=== PATIENT | male | born 1940 | race Caucasian/White ===

== ENCOUNTER 2016-11-24 07:14 | Day surgery (SDC) | payer MEDICARE ==
[2016-11-20 10:28] VITALS: BMI 37.3
[~2016-11-24 07:14] MED LIST: LACTATED RINGERS 1,000 ML IV SCH; LIDOCAINE 1% 20 ML VIAL (10MG/ML) FOR IV START INTRADERMA PRN
[2016-11-24] MEDS ORDERED: LACTATED RINGERS 1,000 ML IV ONE (07:16)
[2016-11-24 07:28] VITALS: RESP 16; TEMP 98.2
[2016-11-24 07:36] LABS: Glucose,Whole Blood 113 mg/dL (75-99)
[2016-11-24] MEDS ORDERED: PROPOFOL 10 MG/ML 20 ML VIAL IV ONE (08:23)
[2016-11-24] MEDS ORDERED: LIDOCAINE 1% INJ 10MG/ML (20 ML MDV) ONE (08:23)
--- NOTE | 2016-11-24 08:50 | P.PCN ---
Date of Procedure: 11/24/16 Preoperative Diagnosis: Postoperative Diagnosis: Procedure(s) Performed: Procedure: Total colonoscopy. Preoperative diagnosis: Screening for neoplasia. Postoperative diagnosis: Exam within normal limits. Preparation: HalfLytely prep. Sedation: Was provided by anesthesia. Brief clinical history: The patient is a 76-year-old male who is referred for this evaluation for screening for neoplasia age being his risk factor. He has no abdominal complaints, bleeding or anemia. His prior exam was many years ago. Procedure: With the patient on his left lateral decubitus position and after informed consent and adequate sedation, the perianal area was inspected and it did not show any fissures or fistulas. There were no masses felt on digital rectal examination. The Olympus CFQ 160L video colonoscope was then inserted in the rectum in the usual fashion and advanced to the cecum. The preparation was good. The mucosa appeared healthy. No definite diverticular orifices were noted and there was no polyps or tumors. I retroflexed the endoscope in the rectum before the endoscope was withdrawn. The patient tolerated the procedure well. Plan: The patient was reassured. At his age, and in the absence of family history of colon cancer or history of polyps and the absence of polyps today, I did not recommend future surveillance or screening exams. He will follow up with you as planned and I will be happy to see in the future if needed. Implants: Indications for Procedure: Operative Findings: Description of Procedure:
[2016-11-24 09:02] VITALS: BP 120/73; PULSE 55
== END 2016-11-24 09:32 | disposition home or self-care (01) ==
LOC: ORWHC2ENDO 07:14
DX: Z12.11 Encounter for screening for malignant neoplasm of colon (principal); I25.10 Atherosclerotic heart disease of native coronary artery without angina pectoris; J45.909 Unspecified asthma, uncomplicated; I10 Essential (primary) hypertension; E78.5 Hyperlipidemia, unspecified; E11.9 Type 2 diabetes mellitus without complications; B19.20 Unspecified viral hepatitis C without hepatic coma; Z95.1 Presence of aortocoronary bypass graft; Z91.09 Other allergy status, other than to drugs and biological substances; Z79.84 Long term (current) use of oral hypoglycemic drugs; Z79.82 Long term (current) use of aspirin; Z79.899 Other long term (current) drug therapy
CPT/HCPCS: J2001; J2704; G0121

== ENCOUNTER → 2017-05-28 | Outpatient (CLI) | payer MEDICARE ==
[2017-05-28 13:07] LABS: Blood Urea Nitrogen 25 mg/dL (9-20)
== END | disposition home or self-care (01) ==
LOC: LABWHC1 12:11
PROVIDERS: ATTEND Ophthalmology
DX: H53.2 Diplopia (principal)
CPT/HCPCS: 36415; 82565; 84520

== ENCOUNTER → 2017-06-11 | Outpatient (CLI) | payer MEDICARE ==
--- NOTE | 2017-06-11 21:48 | MR ---
EXAMINATION TYPE: MR brain/orbits wo/w con DATE OF EXAM: 06/11/2017 COMPARISON: NONE HISTORY: Double Vision, Gadavist 12ml CONTRAST: Performed utilizing 12 mL intravenous Gadavist gadolinium contrast. TECHNIQUE: Multiplanar, multiecho imaging on a 3.0 Mandy magnet is performed through the brain. Stud y is performed within 24 hours of arrival to the hospital. The craniovertebral junction is normal. The pituitary is normal. Diffusion-weighted imaging is performed. No abnormal hyperintensity is present to suggest an acute i ntracranial infarct or acute ischemic change. There is a focal area of increased intensity in the anterior medial left temporal lobe. Series 501 im age 10. This measures 0.4 cm and can be compatible with microvascular ischemic change. Scattered per iventricular white matter changes are present. These are greater than expected for patient of this ag e. Findings are nonspecific but can be related to microvascular ischemic change. Ventricles and sulci are appropriate for the patient age. Globes are symmetrical. Extraocular muscles appear normal. Optic nerves appear normal. Superior ophth almic veins appear normal. Intraconal and extraconal fat is normal. Moore radiata and occipital lobe s within the [id number] are normal. No abnormal enhancement is evident within the orbits or elsewhere within the visualized portion of th e brain. There is opacification of the right maxillary sinus. Correlate for right maxillary sinusitis. Mild mu cosal thickening is within the right ethmoid air cells. Remaining paranasal sinuses and mastoid air c ells are clear. IMPRESSIONS: 1. Multiple scattered periventricular white matter changes. These are nonspecific but can be related to microvascular ischemic change. 2. Normal bilateral orbits. 3. Opacification of the right maxillary sinus. Correlate for sinusitis.
== END | disposition home or self-care (01) ==
LOC: RADMRIMAIN 19:36
PROVIDERS: ATTEND Ophthalmology
DX: H53.2 Diplopia (principal); H49.20 Sixth [abducent] nerve palsy, unspecified eye
CPT/HCPCS: 70543; 70553; A9581

== ENCOUNTER 2018-02-16 14:27 | Emergency (ER) | payer MEDICARE, OTHER ==
[2018-02-16 14:36] VITALS: RESP 18
--- NOTE | 2018-02-16 15:20 | ED ---
Head Injury HPI - General Chief complaint: Head Injury Stated complaint: possible concussion Time Seen by Provider: 02/16/18 14:38 Source: patient, RN notes reviewed Mode of arrival: ambulatory Limitations: no limitations - History of Present Illness Initial comments: 77-year-old male presents emergency Department chief complaint slip, fall head injury. Patient states that this has not checked and he was going down the ramp and states that he slipped on some ice fell directly backwards and struck his head. Patient states that he felt dazed did not lose conscious. states that he was being repetitive asking same questions and active confused for about 20 minutes which has now resolved. Patient states he did have some difficulty murmur what happened states now he remembers it completely. He has a mild headache with no blurred vision no focal weakness denies nausea, vomiting , diarrhea constipation, chest pain or shortness breath. Patient denies any extremity injury he was able to self up was able to ambulate with no difficulty. - Related Data Home Medications Medication Instructions Recorded Confirmed Aspirin [Adult Low Dose Aspirin EC] 81 mg PO HS 11/20/16 02/16/18 Atorvastatin [Lipitor] 40 mg PO HS 11/20/16 02/16/18 Celecoxib [CeleBREX] 200 mg PO MOWEFRSA 11/20/16 02/16/18 Glucosam/Ralph-Msm1/C/Jay/Bosw 1 tab PO BID 11/20/16 02/16/18 [Glucosamine-Chondroitin Tablet] Losartan [Cozaar] 50 mg PO BID 11/20/16 02/16/18 Metoprolol Tartrate [Lopressor] 50 mg PO BID 11/20/16 02/16/18 Multivitamins, Thera [Multivitamin 1 tab PO DAILY 11/20/16 02/16/18 (formulary)] [place]-3 Acid Ethyl Esters [Lovaza] 2 gm PO BID 11/20/16 02/16/18 Pioglitazone [Actos] 15 mg PO DAILY 11/20/16 02/16/18 amLODIPine [Norvasc] 10 mg PO HS 11/20/16 02/16/18 metFORMIN HCL [Glucophage] 500 mg PO BID 11/20/16 02/16/18 sitaGLIPtin [Januvia] 100 mg PO DAILY 11/20/16 02/16/18 Fenofibrate Nanocrystallized 145 mg PO DAILY 02/16/18 02/16/18 [Fenofibrate] Levothyroxine Sodium [Synthroid] 75 mcg PO DAILY 02/16/18 02/16/18 Penicillin V Potassium [Pen Vee K] 500 mg PO QID 02/16/18 02/16/18 Allergies/Adverse reactions: Allergies Allergy/AdvReac Type Severity Reaction Status Date / Time iodine Allergy Itching Verified 02/16/18 15:21 Review of Systems ROS Statement: Those systems with pertinent positive or pertinent negative responses have been documented in the HPI. ROS Other: All systems not noted in ROS Statement are negative. Past Medical History Past Medical History: Asthma, Coronary Artery Disease (CAD), Chest Pain / Angina , Diabetes Mellitus, Hyperlipidemia, Hypertension, Liver Disease, Osteoarthritis (OA), Pneumonia, Thyroid Disorder Additional Past Medical History / Comment(s): hx hepatitis C, hx bursitis great toes, History of Any Multi-Drug Resistant Organisms: None Reported Past Surgical History: Adenoidectomy, Coronary Bypass/CABG, Heart Catheterization, Orthopedic Surgery, Tonsillectomy Additional Past Surgical History / Comment(s): quad bypass, ptosis catherine eye, botox injection eyes, catherine knee arthroscopy, Past Anesthesia/Blood Transfusion Reactions: Previous Problems w/ Anesthesia, Motion Sickness Additional Past Anesthesia/Blood Transfusion Reaction / Comment(s): diff coming out of anesthesia Past Psychological History: No Psychological Hx Reported Smoking Status: Never smoker Past Alcohol Use History: None Reported - Past Family History Daughter(s) Family Medical History: Cancer General Exam Limitations: no limitations General appearance: alert, in no apparent distress Head exam: Present: atraumatic, normocephalic, normal inspection Eye exam: Present: normal appearance, PERRL, EOMI. Absent: scleral icterus, conjunctival injection, periorbital swelling ENT exam: Present: normal exam, normal oropharynx, mucous membranes moist, TM's normal bilaterally, normal external ear exam Neck exam: Present: normal inspection, full ROM. Absent: tenderness, meningismus, lymphadenopathy Respiratory exam: Present: normal lung sounds bilaterally. Absent: respiratory distress, wheezes, rales, rhonchi, stridor Cardiovascular Exam: Present: regular rate, normal rhythm, normal heart sounds. Absent: systolic murmur, diastolic murmur, rubs, gallop, clicks Extremities exam: Present: normal inspection, full ROM, normal capillary refill. Absent: tenderness, pedal edema, joint swelling, calf tenderness Neurological exam: Present: alert, oriented X3, CN II-XII intact, reflexes normal, other (Finger to nose intact, NIH 0, GCS 15). Absent: motor sensory deficit Skin exam: Present: warm, dry, intact, normal color. Absent: rash Course Vital Signs 02/16/18 02/16/18 02/16/18 14:32 15:52 16:07 Temperature 97.9 F Pulse Rate 60 59 L 62 Respiratory 18 18 18 Rate Blood Pressure 190/84 169/101 168/86 O2 Sat by Pulse 96 97 96 Oximetry 02/16/18 02/16/18 16:15 16:35 Temperature 97.2 F L Pulse Rate 58 L 64 Respiratory 18 18 Rate Blood Pressure 139/73 157/72 O2 Sat by Pulse 97 97 Oximetry - Reevaluation(s) Reevaluation #1: 02/16/18 15:45 I did receive a phone call from radiologist stating the patient does have a subarachnoid Reevaluation #2: 02/16/18 16:15 Transfer accepted at 1610 patient is stable blood pressure improved after hydralazine Medical Decision Making - Medical Decision Making 77-year-old male presented to emergency department for fall, head injury. Patient's found to have subarachnoid subdural hematoma with a small 2.7 cm collection. Patient is stable, GCS of 15. Patient does have mild hypertension was given hydralazine at this time. Patient's blood pressure will be monitored. Case discussed with Terri Degroot patient will be transferred. IV was started labwork drawn. - Lab Data Result diagrams: 02/16/18 16:05 02/16/18 16:05 Lab Results 02/16/18 02/16/18 02/16/18 Range/Units 16:05 16:05 16:05 WBC 7.2 (3.8-10.6) k/uL RBC 5.16 (4.30-5.90) m/uL Hgb 15.0 (13.0-17.5) gm/dL Hct 46.5 (39.0-53.0) % MCV 90.1 (80.0-100.0) fL MCH 29.1 (25.0-35.0) pg MCHC 32.3 (31.0-37.0) g/dL RDW 14.8 (11.5-15.5) % Plt Count 183 (150-450) k/uL Neutrophils % 72 % Lymphocytes % 15 % Monocytes % 8 % Eosinophils % 2 % Basophils % 1 % Neutrophils # 5.2 (1.3-7.7) k/uL Lymphocytes # 1.1 (1.0-4.8) k/uL Monocytes # 0.6 (0-1.0) k/uL Eosinophils # 0.1 (0-0.7) k/uL Basophils # 0.1 (0-0.2) k/uL PT 10.1 (9.0-12.0) sec INR 1.0 (<1.2) APTT 24.4 (22.0-30.0) sec Sodium 141 (137-145) mmol/L Potassium 4.6 (3.5-5.1) mmol/L Chloride 107 (98-107) mmol/L Carbon Dioxide 23 (22-30) mmol/L Anion Gap 11 mmol/L BUN 28 H (9-20) mg/dL Creatinine 1.39 H (0.66-1.25) mg/dL Est GFR (CKD-EPI)AfAm 57 (>60 ml/min/1.73 sqM) Est GFR (CKD-EPI)NonAf 49 (>60 ml/min/1.73 sqM) Glucose 119 H (74-99) mg/dL Calcium 10.0 (8.4-10.2) mg/dL Total Bilirubin 0.5 (0.2-1.3) mg/dL AST 34 (17-59) U/L ALT 36 (21-72) U/L Alkaline Phosphatase 58 (38-126) U/L Total Protein 7.8 (6.3-8.2) g/dL Albumin 4.6 (3.5-5.0) g/dL Disposition Clinical Impression: Subarachnoid hemorrhage, Subdural hematoma, Fall Disposition: OTHER INSTITUTION NOT DEFINED Referrals: Shashank Benites MD [Primary Care Provider] - 1-2 days - Out of Hospital Transfer - Req. Specs Out of Hospital Transfer - Requested Specifics[facility]
--- NOTE | 2018-02-16 15:46 | CT ---
EXAMINATION TYPE: CT brain wo con DATE OF EXAM: 02/16/2018 COMPARISON: MRI brain dated 06/11/2017 HISTORY: Fall today with injury and memory loss CT DLP: 1228.4 mGycm Automated exposure control for dose reduction was used. FINDINGS: Extra-axial acute intracranial hemorrhage is seen with both accumulation of subarachnoid hemorrhage i n the right parafalcine frontal vertex as well as subdural accumulation along the falx cerebri measur ing up to 1.0 cm in greatest thickness. The accumulation of subarachnoid hemorrhage on image 40 measu res up to 2.7 x 1.7 cm. There is no midline shift appreciated. There is frontal predominant cerebral volume loss with prominence of the peripheral sulci and ventric ular system. No intraventricular hemorrhage is seen. No calvarial fracture is identified. Chronic right-sided mucoperiosteal thickening with complete opacification of the right maxillary sinu s is indicative of acute on chronic sinusitis. There is a well-corticated smoothly marginated fractur e deformity of the left lamina papyracea with mild mucosal thickening in the ethmoid sinuses. Remaini ng visualized paranasal sinuses and mastoid air cells are well aerated other than slight hypoplasia o f the left mastoid air cells. Atherosclerosis is noted of the intracranial vasculature. IMPRESSION: 1. ACUTE SUBARACHNOID AND SUBDURAL HEMORRHAGE WITH AND ACCUMULATION OF SUBARACHNOID HEMORRHAGE IN THE RIGHT PARAFALCINE FRONTAL VERTEX MEASURING UP TO 2.7 CM. NO MIDLINE SHIFT IS SEEN. FINDINGS WERE COM MUNICATED WITH THE ORDERING PROVIDER NICKI GUADALUPE ON 02/16/[address] NAM. 2. ACUTE ON CHRONIC RIGHT MAXILLARY SINUS PARANASAL SINUS DISEASE AND MILD MUCOSAL THICKENING WITHIN THE ETHMOID SINUSES. 3. OLD FRACTURE DEFORMITY OF THE LEFT LAMINA PAPYRACEA
--- NOTE | 2018-02-16 15:46 | CT ---
EXAMINATION TYPE: CT cervical spine wo con DATE OF EXAM: 02/16/2018 COMPARISON: HISTORY: Fall today with injury and memory loss. CT DLP: 541 mGycm Automated exposure control for dose reduction was used. TECHNIQUE: CT scan of the cervical spine is obtained without contrast, axial images are obtained, sagittal and c oronal reformatted images are also reviewed. FINDINGS: Inflammatory changes present within the middle ear on the left, correlate for possible cholesteatoma, otitis media, mastoid air cells also show some inflammatory change. Cervical spine is visualized in its entirety from C1 through upper thoracic levels, demonstrates no a cute fracture or dislocation. Prevertebral soft tissue appears within normal limits. The C1-C2 emperatriz culation is within normal limits on the coronal images. There is multilevel facet arthropathy and for aminal encroachment. Multilevel spondylosis is present. Loss of disc height present at the interverte bral levels. There is minimal anterolisthesis grade 1 C2-3, C3-4, C4-5. C6-7 there is some mild centr al canal stenosis due to posterior extension of endplate disc complex, some mild spinal stenosis also present at C5-6. IMPRESSION: There is no acute fracture or dislocation evident in the cervical spine. Multilevel facet arthropathy , degenerative disc disease, foraminal encroachment.
[2018-02-16] MEDS ORDERED: hydrALAZINE HCL 20 MG/ML 1 ML VIAL IVP STA (15:48)
[2018-02-16 16:27] LABS: Basophils # (A) 0.1 k/uL (0-0.2); Basophils % (A) 1 %; Eosinophils # (A) 0.1 k/uL (0-0.7); Eosinophils % (A) 2 %; HCT 46.5 % (39.0-53.0); Lymphocytes # (A) 1.1 k/uL (1.0-4.8); Lymphocytes % (A) 15 %; MCH 29.1 pg (25.0-35.0); MCHC 32.3 g/dL (31.0-37.0); MCV 90.1 fL (80.0-100.0); Monocytes # (A) 0.6 k/uL (0-1.0); Monocytes % (A) 8 %; Neutrophils # (A) 5.2 k/uL (1.3-7.7); Neutrophils % (A) 72 %; Platelet Count 183 k/uL (150-450); RBC 5.16 m/uL (4.30-5.90); RDW 14.8 % (11.5-15.5); WBC 7.2 k/uL (3.8-10.6)
[2018-02-16 16:36] VITALS: BP 157/72; PULSE 64; TEMP 97.2
[2018-02-16 16:36] LABS: Albumin 4.6 g/dL (3.5-5.0); Potassium 4.6 mmol/L (3.5-5.1); Total Bilirubin 0.5 mg/dL (0.2-1.3); Total Protein 7.8 g/dL (6.3-8.2)
[2018-02-16 16:39] LABS: Partial Thromboplastin Time 24.4 sec (22.0-30.0); Prothrombin Time 10.1 sec (9.0-12.0)
== END 2018-02-16 16:39 | disposition other institution (70) ==
LOC: EC 14:27
DX: S06.6X9A Traumatic subarachnoid hemorrhage with loss of consciousness of unspecified duration, initial encounter (principal); S06.5X9A Traumatic subdural hemorrhage with loss of consciousness of unspecified duration, initial encounter; J45.909 Unspecified asthma, uncomplicated; I25.119 Atherosclerotic heart disease of native coronary artery with unspecified angina pectoris; E11.9 Type 2 diabetes mellitus without complications; E78.5 Hyperlipidemia, unspecified; I10 Essential (primary) hypertension; M19.90 Unspecified osteoarthritis, unspecified site; E07.9 Disorder of thyroid, unspecified; Z86.19 Personal history of other infectious and parasitic diseases; Z79.82 Long term (current) use of aspirin; Z79.84 Long term (current) use of oral hypoglycemic drugs; Z79.899 Other long term (current) drug therapy; Z88.8 Allergy status to other drugs, medicaments and biological substances; Z95.818 Presence of other cardiac implants and grafts; Z95.1 Presence of aortocoronary bypass graft; W00.0XXA Fall on same level due to ice and snow, initial encounter
CPT/HCPCS: 36415; 80053; 85025; 85610; 85730; 72125; 70450; 99284; 96374; J0360

== ENCOUNTER → 2018-05-04 | Outpatient (CLI) | payer MEDICARE ==
--- NOTE | 2018-05-05 07:02 | US ---
EXAMINATION TYPE: US kidneys/renal and bladder DATE OF EXAM: 05/04/2018 COMPARISON: NONE CLINICAL HISTORY: Abn kidney function studies R94.4. EXAM MEASUREMENTS: Right Kidney: 13.4 x 6.5 x 5.3 cm Left Kidney: 13.8 x 7.5 x 6.5 cm Post Void Residual Volume: 33.6 mL Right Kidney: small exophytic cyst measures 1.5 x 1.4 x 1.5 cm Left Kidney: moderate hydro Bladder: wnl Bilateral Jets seen: No Normal Post Void Residual: yes No nephrolithiasis is seen. No solid masses are identified. The urinary bladder is anechoic. Bilat eral ureteral jets are seen. IMPRESSION: 1. Moderate left-sided hydronephrosis. 2. Small exophytic cyst right kidney.
== END | disposition home or self-care (01) ==
LOC: RADUSWWP 16:10
PROVIDERS: ATTEND Internal Medicine Geriatric Medicine
DX: N13.30 Unspecified hydronephrosis (principal); N28.1 Cyst of kidney, acquired
CPT/HCPCS: 76770

== ENCOUNTER → 2018-12-13 | Outpatient (CLI) | payer MEDICARE ==
--- NOTE | 2018-12-13 11:08 | US ---
EXAMINATION TYPE: US kidneys/renal and bladder DATE OF EXAM: 12/13/2018 COMPARISON: US 2019 CLINICAL HISTORY: 78-year-old male R94.4 abnormal results of kidney function. History of hydronephros is and right renal cyst FINDINGS: EXAM MEASUREMENTS: Right Kidney: 11.9 x 6.4 x 6.9 cm Left Kidney: 10.8 x 4.7 x 5.3 cm No hydronephrosis seen on either side. Right Kidney: multiple small cysts with largest measuring 1.6cm Left Kidney: multiple small cysts with largest measuring 1.3cm Bladder: wnl Bilateral Jets seen: no IMPRESSION: 1. No hydronephrosis on either side. The previously seen left-sided hydronephrosis has resolved. 2. Bilateral renal cysts measuring up to 1.6 cm.
== END | disposition home or self-care (01) ==
LOC: RADUSWWP 10:00
PROVIDERS: ATTEND Internal Medicine Geriatric Medicine
DX: N28.1 Cyst of kidney, acquired (principal)
CPT/HCPCS: 76770

== ENCOUNTER 2019-01-18 15:14 | Observation (INO) | payer MEDICARE ==
[2019-01-18] MEDS ORDERED: SODIUM CHLORIDE 0.9% 1,000 ML IV STA (16:46)
[2019-01-18] MEDS ORDERED: SODIUM CHLORIDE 0.9% 500 ML 500 ML IV STA (16:46)
[2019-01-18] MEDS ORDERED: ONDANSETRON 4 MG/2 ML VIAL IVP STA (16:46)
[2019-01-18 17:04] LABS: Basophils # (A) 0.2 k/uL (0-0.2); Basophils % (A) 2 %; Eosinophils # (A) 0.1 k/uL (0-0.7); Eosinophils % (A) 1 %; HCT 45.5 % (39.0-53.0); HGB 14.4 gm/dL (13.0-17.5); Lymphocytes # (A) 1.4 k/uL (1.0-4.8); Lymphocytes % (A) 17 %; MCHC 31.6 g/dL (31.0-37.0); MCV 91.9 fL (80.0-100.0); Mean Platelet Volume 7.3; Monocytes # (A) 0.8 k/uL (0-1.0); Monocytes % (A) 10 %; Neutrophils # (A) 5.5 k/uL (1.3-7.7); Neutrophils % (A) 66 %; Platelet Count 322 k/uL (150-450); RBC 4.96 m/uL (4.30-5.90); RDW 13.8 % (11.5-15.5); WBC 8.3 k/uL (3.8-10.6)
--- NOTE | 2019-01-18 17:04 | ED ---
Syncope HPI - General Chief Complaint: Syncope Stated Complaint: low bp Time Seen by Provider: 01/18/19 16:11 Source: patient, RN notes reviewed, old records reviewed Mode of arrival: ambulatory Limitations: no limitations - History of Present Illness MD Complaint: loss of consciousness, collapsed -: days(s) (5) Prodromal Symptoms: palpitations, shortness of breath -: second(s) Injuries Sustained Associated with Event: Head Current Symptoms: none Context: at rest Treatments Prior to Arrival: none - Related Data Home Medications Medication Instructions Recorded Confirmed Aspirin [Adult Low Dose Aspirin EC] 81 mg PO HS 11/20/16 01/18/19 Atorvastatin [Lipitor] 40 mg PO HS 11/20/16 01/18/19 Celecoxib [CeleBREX] 200 mg PO MOWEFRSA 11/20/16 01/18/19 Glucosam/Ralph-Msm1/C/Jay/Bosw 1 tab PO BID 11/20/16 01/18/19 [Glucosamine-Chondroitin Tablet] Metoprolol Tartrate [Lopressor] 50 mg PO BID 11/20/16 01/18/19 Multivitamins, Thera [Multivitamin 1 tab PO DAILY 11/20/16 01/18/19 (formulary)] amLODIPine [Norvasc] 10 mg PO HS 11/20/16 01/18/19 metFORMIN HCL [Glucophage] 500 mg PO BID 11/20/16 01/18/19 sitaGLIPtin [Januvia] 100 mg PO DAILY 11/20/16 01/18/19 Levothyroxine Sodium [Synthroid] 75 mcg PO MOTUWETHFRSA 02/16/18 01/18/19 Allopurinol [Zyloprim] 150 mg PO HS 01/18/19 01/18/19 Fenofibrate Nanocrystallized 145 mg PO DAILY 01/18/19 01/18/19 [Tricor] Pioglitazone [Actos] 30 mg PO DAILY 01/18/19 01/18/19 Allergies Allergy/AdvReac Type Severity Reaction Status Date / Time iodine Allergy Itching Verified 01/18/19 16:12 Review of Systems ROS Statement: Those systems with pertinent positive or pertinent negative responses have been documented in the HPI. ROS Other: All systems not noted in ROS Statement are negative. Past Medical History Past Medical History: Asthma, Coronary Artery Disease (CAD), Chest Pain / Angina, Diabetes Mellitus, Hyperlipidemia, Hypertension, Liver Disease, Osteoarthritis (OA), Pneumonia, Thyroid Disorder Additional Past Medical History / Comment(s): hx hepatitis C, hx bursitis great toes, cranial impact History of Any Multi-Drug Resistant Organisms: None Reported Past Surgical History: Adenoidectomy, Coronary Bypass/CABG, Heart Catheterization, Orthopedic Surgery, Tonsillectomy Additional Past Surgical History / Comment(s): quad bypass, ptosis catherine eye, botox injection eyes, catherine knee arthroscopy, Past Anesthesia/Blood Transfusion Reactions: Previous Problems w/ Anesthesia, Motion Sickness Additional Past Anesthesia/Blood Transfusion Reaction / Comment(s): diff coming out of anesthesia Past Psychological History: No Psychological Hx Reported Smoking Status: Never smoker Past Alcohol Use History: None Reported - Past Family History Daughter(s) Family Medical History: Cancer General Exam Limitations: no limitations General appearance: alert, in no apparent distress Head exam: Present: atraumatic, normocephalic, normal inspection Eye exam: Present: normal appearance, PERRL, EOMI. Absent: scleral icterus, conjunctival injection, periorbital swelling ENT exam: Present: normal exam, mucous membranes moist Neck exam: Present: normal inspection. Absent: tenderness, meningismus, lymphadenopathy Respiratory exam: Present: normal lung sounds bilaterally. Absent: respiratory distress, wheezes, rales, rhonchi, stridor Cardiovascular Exam: Present: regular rate, normal rhythm, normal heart sounds. Absent: systolic murmur, diastolic murmur, rubs, gallop, clicks GI/Abdominal exam: Present: soft, normal bowel sounds. Absent: distended, tenderness, guarding, rebound, rigid Extremities exam: Present: normal inspection, full ROM, normal capillary refill. Absent: tenderness, pedal edema, joint swelling, calf tenderness Back exam: Present: normal inspection Neurological exam: Present: alert, oriented X3, CN II-XII intact Psychiatric exam: Present: normal affect, normal mood Skin exam: Present: warm, dry, intact, normal color. Absent: rash Course Vital Signs 01/18/19 01/18/19 01/18/19 15:21 15:26 16:30 Temperature 97.5 F L 98.5 F Pulse Rate 72 65 64 Respiratory 18 20 18 Rate Blood Pressure 90/58 112/70 112/70 O2 Sat by Pulse 95 96 95 Oximetry 01/18/19 01/18/19 17:00 17:30 Temperature Pulse Rate 62 66 Respiratory 18 18 Rate Blood Pressure 112/73 142/77 O2 Sat by Pulse 96 96 Oximetry - Reevaluation(s) Reevaluation #1: 01/18/19 18:12 Medical records reviewed. Reevaluation #2: 01/18/19 18:12 Patient without recurrent syncope - Consultations Consultation #1: spoke w Dr Fortune who is okay for admission EKG Findings - EKG Comments: EKG Findings:: EKG shows sinus rhythm rate of 63, TN 216, QRS 104, QTc 429 Medical Decision Making - Medical Decision Making 78 male the ER for evaluation patient resents a for evaluation of recurrent sick B2 episodes of syncope last 4 days she by primary care sent ER for evaluation EKG showing no significant acute changes patient's blood pressure running marginally low will be given fluid bolus and put on a monitor for evaluation of arrhythmia. - Lab Data Result diagrams: 01/18/19 16:00 Lab Results 01/18/19 01/18/19 01/18/19 Range/Units 16:00 16:00 16:00 WBC 8.3 (3.8-10.6) k/uL RBC 4.96 (4.30-5.90) m/uL Hgb 14.4 (13.0-17.5) gm/dL Hct 45.5 (39.0-53.0) % MCV 91.9 (80.0-100.0) fL MCH 29.0 (25.0-35.0) pg MCHC 31.6 (31.0-37.0) g/dL RDW 13.8 (11.5-15.5) % Plt Count 322 (150-450) k/uL Neutrophils % 66 % Lymphocytes % 17 % Monocytes % 10 % Eosinophils % 1 % Basophils % 2 % Neutrophils # 5.5 (1.3-7.7) k/uL Lymphocytes # 1.4 (1.0-4.8) k/uL Monocytes # 0.8 (0-1.0) k/uL Eosinophils # 0.1 (0-0.7) k/uL Basophils # 0.2 (0-0.2) k/uL PT 10.6 (9.0-12.0) sec INR 1.0 (<1.2) APTT 26.1 (22.0-30.0) sec Plasma Lactic Acid Zac 1.7 (0.7-2.0) mmol/L Troponin I (0.000-0.034) ng/mL 01/18/19 Range/Units 16:00 WBC (3.8-10.6) k/uL RBC (4.30-5.90) m/uL Hgb (13.0-17.5) gm/dL Hct (39.0-53.0) % MCV (80.0-100.0) fL MCH (25.0-35.0) pg MCHC (31.0-37.0) g/dL RDW (11.5-15.5) % Plt Count (150-450) k/uL Neutrophils % % Lymphocytes % % Monocytes % % Eosinophils % % Basophils % % Neutrophils # (1.3-7.7) k/uL Lymphocytes # (1.0-4.8) k/uL Monocytes # (0-1.0) k/uL Eosinophils # (0-0.7) k/uL Basophils # (0-0.2) k/uL PT (9.0-12.0) sec INR (<1.2) APTT (22.0-30.0) sec Plasma Lactic Acid Zac (0.7-2.0) mmol/L Troponin I <0.012 (0.000-0.034) ng/mL - Radiology Data Radiology results: report reviewed (X-ray abdominal series the chest is negative for acute disease), image reviewed Disposition Clinical Impression: Vasovagal syncope, Syncope, Weakness Disposition: ADMITTED IP TO THIS [facility] Condition: Fair Is patient prescribed a controlled substance at d/c from ED?: No Referrals: Shashank Benites MD [Primary Care Provider] - 1-2 days
[2019-01-18 17:16] LABS: Partial Thromboplastin Time 26.1 sec (22.0-30.0); Prothrombin Time 10.6 sec (9.0-12.0)
--- NOTE | 2019-01-18 17:39 | XR ---
EXAMINATION TYPE: XR abdomen acute w cxr DATE OF EXAM: 01/18/2019 COMPARISON: NONE HISTORY: Syncope. Asthma. TECHNIQUE: Supine, upright, and left side down lateral decubitus views of the abdomen are obtained. FINDINGS: Heart is normal. Lungs are clear of consolidation. There are no hilar masses. There are sternal wires . Bowel gas pattern is normal. There is no sign of intestinal obstruction or pneumoperitoneum. Fecal pa ttern is normal. There are no pathologic calcifications over the kidneys. IMPRESSION: Nonacute abdomen. No active cardiopulmonary disease.
[2019-01-18] MEDS ORDERED: ASPIRIN 81 MG PO STA (18:09)
[2019-01-18] MEDS ORDERED: NITROGLYCERIN SL TABS 0.4 MG TAB SUBLINGUAL PRN (18:09)
[2019-01-18 18:26] LABS: Albumin 4.9 g/dL (3.5-5.0); Calcium 10.4 mg/dL (8.4-10.2); Magnesium 2.1 mg/dL (1.6-2.3); Phosphorus 4.6 mg/dL (2.5-4.5); Potassium 4.6 mmol/L (3.5-5.1); Total Bilirubin 0.7 mg/dL (0.2-1.3)
[2019-01-18] MEDS: SODIUM CHLORIDE 0.9% 1,000 ML IV SCH ×2 (18:59→22:59)
[2019-01-18 20:44] VITALS: BMI 35.9
[2019-01-19 04:29] LABS: Cholesterol 166 mg/dL (<200); HDL Cholesterol 33 mg/dL (40-60); LDL Cholesterol,Calculated 74 mg/dL (0-99); Triglycerides 297 mg/dL (<150)
[2019-01-19 07:33] LABS: Glucose,Whole Blood 130 mg/dL (75-99)
[2019-01-19] MEDS ORDERED: MELOXICAM 7.5 MG TAB PO SCH (09:00)
[2019-01-19] MEDS ORDERED: ASPIRIN 325 MG TAB PO SCH (09:00)
--- NOTE | 2019-01-19 09:51 | P.CRDCN ---
History of Present Illness History of present illness: This is a pleasant 78-year-old male past medical history significant for four-vessel coronary artery bypass in 2002, diabetes mellitus, hypertension, dyslipidemia, hypothyroidism and hepatitis C. he follows in the office with Dr. Tucker. We have been asked to see him in consultation secondary to syncopal episode. He states for the previous 4 days he has been struggling with feeling overall unwell. He states he thought he possibly had influenza. He also has been constipated. On Thursday evening he woke up to attempt to use the restroom was sitting on the toilet straining and became acutely nauseated and diaphoretic. The next thing he recalls he woke up on the floor of the bathroom. He did not have a successful bowel movement at that time. The rest of the weekend he was having intermittent episodes of lower abdominal discomfort, constipation and had 2 further episodes of near syncope. He did not pass out. Other 2 times however he had the same nausea and diaphoresis and became extremely lightheaded. Per the patient he had been checking his blood pressure at home and recalls having a reading of 50/30. He [address] Dr[address] Benites in the office yesterday afternoon and was advised to come to the hospital for further evaluation. Upon arrival the blood pressure was 90/50. He is seen and examined sitting up in bed in no acute distress. He denies ever having had any chest discomfort, shortness of breath or palpitations. He has had no further syncope or near syncope since arriving at the hospital. Telemetry tracings have been unremarkable. EKG reveals sinus mechanism with ST abnormalities noted in the anterior leads, when compared to previous EKG in the office this is chronic. Laboratory data reviewed, cardiac enzymes negative 3, CBC unremarkable, sodium 140, potassium 4.6, creatinine 2.88 with a GFR of 20, magnesium 2.1, LDL 74 and TSH 3.52. His current daily cardiac medications include amlodipine 10 mg daily, atorvastatin 40 mg daily, aspirin 81 mg daily, fenofibrate 145 mg daily and Lopressor 50 mg twice a day. Acute abdominal series was unremarkable with no acute cardiopulmonary process or abdominal abnormality. Most recent echocardiogram obtained in the office revealed normal LV systolic function. At the time of my exam: CONSTITUTIONAL: Denies fever. Denies chills. EYES: Denies blurred vision. Denies vision changes. Denies eye pain. EARS, NOSE, MOUTH & THROAT: Denies headache. Denies sore throat. Denies ear pain. CARDIOVASCULAR: Denies chest pain. Denies shortness of breath. Denies orthopnea. Denies PND. Denies palpitations. RESPIRATORY: Denies cough. GASTROINTESTINAL: Denies abdominal pain. Denies diarrhea. Denies constipation. Denies nausea. Denies vomiting. MUSCULOSKELETAL: Denies myalgias. INTEGUMENTARY: Denies pruitis. Denies rash. NEUROLOGIC: Denies numbness. Denies tingling. Denies weakness. PSYCHIATRIC: Denies anxiety. Denies depression. ENDOCRINE: Denies fatigue. Denies weight change. Denies polydipsia. Denies po lyurina. GENITOURINARY: Denies burning, hematuria or urgency with micturation. HEMATOLOGIC: Denies history of anemia. Denies bleeding. Blood pressure 126/65 heart rate 72 afebrile maintaining oxygen saturation on room air GENERAL: This is a 78-year-old male in no apparent distress at the time of my examination. Obese. HEENT: Head is atraumatic, normocephalic. Pupils are equal, round. Sclerae anicteric. Conjunctivae are clear. Mucous membranes of the mouth are moist. Neck is supple. There is no jugular venous distention. No carotid bruit is heard. LUNGS: Clear to auscultation no wheezes, rales or rhonchi. No chest wall tenderness is noted on palpation or with deep breathing. HEART: Regular rate and rhythm without murmurs, rubs or gallops. S1 and S2 heard. ABDOMEN: Soft, nontender. Bowel sounds are heard. No organomegaly noted. EXTREMITIES: No evidence of peripheral edema and no calf tenderness noted. VASCULAR: Radial and dorsalis pedis pulses palpated, no evidence of clubbing. NEUROLOGIC: Patient is awake, alert and oriented x3. ASSESSMENT Syncope and multiple episodes of near syncope over the previous 4 days with hypertension at home. Acute kidney injury History of coronary artery disease status post bypass grafting Diabetes mellitus Hypertension Dyslipidemia History of hepatitis C Obesity, BMI 35 PLAN An acute coronary event has been ruled out. Obtain 2-D echocardiogram and Doppler study to assess cardiac structure and function. Ongoing telemetry and vital signs monitoring for an acute arrhythmia. Obtain orthostatic vital signs. Consider nephrology consultation for acute kidney injury. Thank you kindly for this consultation. Nurse Practitioner note has been reviewed, I agree with a documented findings and plan of care. Patient was seen and examined. Past Medical History Past Medical History: Asthma, Coronary Artery Disease (CAD), Chest Pain / Angina, Diabetes Mellitus, Hyperlipidemia, Hypertension, Liver Disease, Osteoarthritis (OA), Pneumonia, Thyroid Disorder Additional Past Medical History / Comment(s): hx hepatitis C, hx bursitis great toes, cranial impact History of Any Multi-Drug Resistant Organisms: None Reported Past Surgical History: Adenoidectomy, Coronary Bypass/CABG, Heart Catheterization, Orthopedic Surgery, Tonsillectomy Additional Past Surgical History / Comment(s): quad bypass, ptosis catherine eye, botox injection eyes, catherine knee arthroscopy, Past Anesthesia/Blood Transfusion Reactions: Previous Problems w/ Anesthesia, Motion Sickness Additional Past Anesthesia/Blood Transfusion Reaction / Comment(s): diff coming out of anesthesia Past Psychological History: No Psychological Hx Reported Smoking Status: Never smoker Past Alcohol Use History: None Reported Past Drug Use History: None Reported - Past Family History Daughter(s) Family Medical History: Cancer Medications and Allergies Home Medications Medication Instructions Recorded Confirmed Type Aspirin [Adult Low Dose Aspirin EC] 81 mg PO HS 11/20/16 01/18/19 History Atorvastatin [Lipitor] 40 mg PO HS 11/20/16 01/18/19 History Celecoxib [CeleBREX] 200 mg PO MOWEFRSA 11/20/16 01/18/19 History Glucosam/Ralph-Msm1/C/Jay/Bosw 1 tab PO BID 11/20/16 01/18/19 History [Glucosamine-Chondroitin Tablet] Metoprolol Tartrate [Lopressor] 50 mg PO BID 11/20/16 01/18/19 History Multivitamins, Thera [Multivitamin 1 tab PO DAILY 11/20/16 01/18/19 History (formulary)] amLODIPine [Norvasc] 10 mg PO HS 11/20/16 01/18/19 History metFORMIN HCL [Glucophage] 500 mg PO BID 11/20/16 01/18/19 History sitaGLIPtin [Januvia] 100 mg PO DAILY 11/20/16 01/18/19 History Levothyroxine Sodium [Synthroid] 75 mcg PO MOTUWETHFRSA 02/16/18 01/18/19 History Allopurinol [Zyloprim] 150 mg PO HS 01/18/19 01/18/19 History Fenofibrate Nanocrystallized 145 mg PO DAILY 01/18/19 01/18/19 History [Tricor] Pioglitazone [Actos] 30 mg PO DAILY 01/18/19 01/18/19 History Allergies Allergy/AdvReac Type Severity Reaction Status Date / Time iodine Allergy Itching Verified 01/18/19 16:12 Physical Exam Vitals: Vital Signs Temp Pulse Pulse Resp BP BP Pulse Ox 01/19/19 08:00 98.3 F 72 18 126/65 92 L 01/19/19 04:00 98.8 F 79 18 167/93 93 L 01/18/19 23:33 99.1 F 71 18 157/81 90 L 01/18/19 23:26 71 18 01/18/19 20:30 66 18 01/18/19 20:00 98.2 F 66 18 144/77 95 01/18/19 19:27 98 18 112/74 96 01/18/19 19:00 60 18 134/74 96 01/18/19 18:30 63 18 126/68 98 01/18/19 17:30 66 18 142/77 96 01/18/19 17:00 62 18 112/73 96 01/18/19 16:30 64 18 112/70 95 01/18/19 15:26 98.5 F 65 20 112/70 96 01/18/19 15:21 97.5 F L 72 18 90/58 95 Intake and Output 01/18/19 01/19/19 01/19/19 22:59 06:59 14:59 Output Total 200 Balance -200 Output: Urine 200 Other: # Voids 2 Weight 113.58 kg Results 01/18/19 16:00 01/18/19 16:00 Cardiac Enzymes 01/18/19 01/18/19 01/18/19 Range/Units 16:00 16:00 22:34 AST 41 (17-59) U/L Troponin I <0.012 <0.012 (0.000-0.034) ng/mL 01/19/19 Range/Units 03:51 AST (17-59) U/L Troponin I <0.012 (0.000-0.034) ng/mL Coagulation 01/18/19 Range/Units 16:00 PT 10.6 (9.0-12.0) sec APTT 26.1 (22.0-30.0) sec Lipids 01/19/19 Range/Units 03:51 Triglycerides 297 H (<150) mg/dL Cholesterol 166 (<200) mg/dL HDL Cholesterol 33 L (40-60) mg/dL CBC 01/18/19 Range/Units 16:00 WBC 8.3 (3.8-10.6) k/uL RBC 4.96 (4.30-5.90) m/uL Hgb 14.4 (13.0-17.5) gm/dL Hct 45.5 (39.0-53.0) % Plt Count 322 (150-450) k/uL Comprehensive Metabolic Panel 01/18/19 Range/Units 16:00 Sodium 140 (137-145) mmol/L Potassium 4.6 (3.5-5.1) mmol/L Chloride 100 (98-107) mmol/L Carbon Dioxide 26 (22-30) mmol/L BUN 49 H (9-20) mg/dL Creatinine 2.88 H (0.66-1.25) mg/dL Glucose 107 H (74-99) mg/dL Calcium 10.4 H (8.4-10.2) mg/dL AST 41 (17-59) U/L ALT 30 (21-72) U/L Alkaline Phosphatase 49 (38-126) U/L Total Protein 8.0 (6.3-8.2) g/dL Albumin 4.9 (3.5-5.0) g/dL Current Medications Generic Name Dose Route Start Last Admin Trade Name Freq PRN Reason Stop Dose Admin Allopurinol 150 mg 01/19/19 21:00 Zyloprim PO HS NAEEM Amlodipine Besylate 10 mg 01/19/19 21:00 Norvasc PO HS NAEEM Aspirin 81 mg 01/19/19 21:00 Aspirin PO HS NAEEM Atorvastatin Calcium 40 mg 01/19/19 21:00 Lipitor PO HS NAEEM Fenofibrate 160 mg 01/20/19 09:00 Lofibra PO DAILY NAEEM Sodium Chloride 1,000 mls @ 100 mls/hr 01/18/19 18:15 01/18/19 22:59 Saline 0.9% IV Not Given .Q10H NAEEM Sodium Chloride 1,000 mls @ 75 mls/hr 01/19/19 09:45 Saline 0.9% IV .[id number] NAEEM Levothyroxine Sodium 75 mcg 01/19/19 21:00 Synthroid PO MOTUWETHFRSA NAEEM Linagliptin 5 mg 01/19/19 09:30 Tradjenta PO DAILY NAEEM Meloxicam 7.5 mg 01/19/19 09:00 Mobic PO MOWEFRSA NAEEM Metoprolol Tartrate 50 mg 01/19/19 09:00 Lopressor PO BID NAEEM Nitroglycerin 0.4 mg 01/18/19 18:09 Nitrostat SUBLINGUAL Q5M PRN Chest Pain Pioglitazone HCl 30 mg 01/19/19 09:30 Actos PO DAILY NAEEM Intake and Output 01/18/19 01/19/19 01/19/19 22:59 06:59 14:59 Output Total 200 Balance -200 Output: Urine 200 Other: # Voids 2 Weight 113.58 kg 01/18/19 16:00 01/18/19 16:00
[2019-01-19] MEDS: PIOGLITAZONE 30 MG TAB PO SCH (10:03)
[2019-01-19] MEDS: LINAGLIPTIN 5 MG TABLET PO SCH (10:03)
[2019-01-19] MEDS: METOPROLOL TARTRATE 50 MG TAB PO SCH ×2 (10:03→20:48)
[2019-01-19] MEDS: SODIUM CHLORIDE 0.9% 1,000 ML IV SCH (10:06)
[2019-01-19 10:28] LABS: Calcium 9.5 mg/dL (8.4-10.2)
[2019-01-19 10:31] LABS: Appearance,Urine Clear (Clear); Bilirubin,Urine Negative (Negative); Blood,Urine Negative (Negative); Color,Urine Yellow; Glucose,Urine (UA) Negative (Negative); Ketones,Urine Negative (Negative); Leukocyte Esterase,Urine Negative (Negative); Nitrite,Urine Negative (Negative); Protein,Urine Negative (Negative); Specific Gravity,Urine 1.014 (1.001-1.035); Urobilinogen,Urine <2.0 mg/dL (<2.0)
--- NOTE | 2019-01-19 10:31 | ECHOF ---
Referral Reason:syncope MEASUREMENTS -------- HEIGHT: 177.8 cm WEIGHT: 113.4 kg BP: 126/65 RVIDd: 3.6 cm (< 3.3) IVSd: 1.7 cm (0.6 - 1.1) LVIDd: 4.5 cm (3.9 - 5.3) LVPWd: 1.5 cm (0.6 - 1.1) IVSs: 1.8 cm LVIDs: 3.2 cm LVPWs: 2.0 cm LA Diam: 3.7 cm (2.7 - 3.8) LAESV Index (A-L): 18.69 ml/m Ao Diam: 3.5 cm (2.0 - 3.7) AV Cusp: 2.2 cm (1.5 - 2.6) MV EXCURSION: 13.883 mm (> 18.000) MV EF SLOPE: 27 mm/s (70 - 150) EPSS: 1.1 cm MV E Peewee: 0.63 m/s MV DecT: 347 ms MV A Peewee: 0.87 m/s MV E/A Ratio: 0.72 RAP: 5.00 mmHg RVSP: 35.44 mmHg FINDINGS -------- Sinus rhythm. This was a technically difficult study with suboptimal apical views. The left ventricular size is normal. There is moderate concentric left ventricular hypertrophy. L eft ventricular systolic function is hyperdynamic with an estimated EF of >70%. The right ventricle is mildly enlarged. Normal LA size by volume 22+/-6 ml/m2. The right atrium is normal in size. 5 ml of Lumason was utilized for enhancement of images. There is mild aortic valve sclerosis. Mild mitral regurgitation is present. Mild tricuspid regurgitation present. There is mild pulmonary hypertension. The right ventricular systolic pressure, as measured by Doppler, is 35.44mmHg. Trace/mild (physiologic) pulmonic regurgitation. The aortic root size is normal. IVC Not well visulized. There is no pericardial effusion. CONCLUSIONS -------- 1. Sinus rhythm. 2. This was a technically difficult study with suboptimal apical views. 3. The left ventricular size is normal. 4. There is moderate concentric left ventricular hypertrophy. 5. Left ventricular systolic function is hyperdynamic with an estimated EF of >70%. 6. The right ventricle is mildly enlarged. 7. Normal LA size by volume 22+/-6 ml/m2. 8. The right atrium is normal in size. 9. 5 ml of Lumason was utilized for enhancement of images. 10. There is mild aortic valve sclerosis. 11. Mild mitral regurgitation is present. 12. Mild tricuspid regurgitation present. 13. There is mild pulmonary hypertension. 14. The right ventricular systolic pressure, as measured by Doppler, is 35.44mmHg. 15. Trace/mild (physiologic) pulmonic regurgitation. 16. The aortic root size is normal. 17. IVC Not well visulized. 18. There is no pericardial effusion. [employer] MAINTAINER: Suha Patrick RDCS
[2019-01-19 12:09] LABS: Glucose,Whole Blood 192 mg/dL (75-99)
--- NOTE | 2019-01-19 12:52 | P.NPCON ---
History of Present Illness - Reason for Consult acute renal failure - History of Present Illness Reason for consultation: Acute kidney injury History of present illness: Patient is a 78-year-old male seen in renal consultation for acute kidney injury. Patient's creatinine in January 2018 was 1.39 and 1.0 in May 2017. This admission was 2.88 and is 2.72 today. Patient presented to the hospital due to syncope. Patient states Thursday evening he was straining to have a bowel movement and subsequently fell and lost consciousness. He is unsure as to how long he was down for. He denies chest pain or shortness of breath. He has been voiding. No hematuria or dysuria. Patient was noted to be mildly orthostatic with standing blood pressure 117/73. Oral intake is fair. He does have history of diabetes mellitus. Blood sugar is controlled. Urine is benign. Denies regular use of nonsteroidals. Denies family history of renal disease. Currently receiving IV fluids. Vital signs are stable. General: The patient appeared well nourished and normally developed. HEENT: Head exam is unremarkable. Neck is without jugular venous distension. LUNGS: Lungs are clear to auscultation and percussion. Breath sounds decreased. HEART: Rate and Rhythm are regular. First and second heart sounds normal. No murmurs, rubs or gallops. ABDOMEN: Abdominal exam reveals normal bowel sounds. Non-tender and non- distended. No evidence of peritonitis. EXTREMITITES: No clubbing, cyanosis, or edema. Past Medical History Past Medical History: Asthma, Coronary Artery Disease (CAD), Chest Pain / Angina, Diabetes Mellitus, Hyperlipidemia, Hypertension, Liver Disease, Os teoarthritis (OA), Pneumonia, Thyroid Disorder Additional Past Medical History / Comment(s): hx hepatitis C, hx bursitis great toes, cranial impact History of Any Multi-Drug Resistant Organisms: None Reported Past Surgical History: Adenoidectomy, Coronary Bypass/CABG, Heart Catheterization, Orthopedic Surgery, Tonsillectomy Additional Past Surgical History / Comment(s): quad bypass, ptosis catherine eye, botox injection eyes, catherine knee arthroscopy, Past Anesthesia/Blood Transfusion Reactions: Previous Problems w/ Anesthesia, Motion Sickness Additional Past Anesthesia/Blood Transfusion Reaction / Comment(s): diff coming out of anesthesia Past Psychological History: No Psychological Hx Reported Smoking Status: Never smoker Past Alcohol Use History: None Reported Past Drug Use History: None Reported - Past Family History Daughter(s) Family Medical History: Cancer Medications and Allergies Home Medications Medication Instructions Recorded Confirmed Type Aspirin [Adult Low Dose Aspirin EC] 81 mg PO HS 11/20/16 01/18/19 History Atorvastatin [Lipitor] 40 mg PO HS 11/20/16 01/18/19 History Celecoxib [CeleBREX] 200 mg PO MOWEFRSA 11/20/16 01/18/19 History Glucosam/Ralph-Msm1/C/Jay/Bosw 1 tab PO BID 11/20/16 01/18/19 History [Glucosamine-Chondroitin Tablet] Metoprolol Tartrate [Lopressor] 50 mg PO BID 11/20/16 01/18/19 History Multivitamins, Thera [Multivitamin 1 tab PO DAILY 11/20/16 01/18/19 History (formulary)] amLODIPine [Norvasc] 10 mg PO HS 11/20/16 01/18/19 History metFORMIN HCL [Glucophage] 500 mg PO BID 11/20/16 01/18/19 History sitaGLIPtin [Januvia] 100 mg PO DAILY 11/20/16 01/18/19 History Levothyroxine Sodium [Synthroid] 75 mcg PO MOTUWETHFRSA 02/16/18 01/18/19 History Allopurinol [Zyloprim] 150 mg PO HS 01/18/19 01/18/19 History Fenofibrate Nanocrystallized 145 mg PO DAILY 01/18/19 01/18/19 History [Tricor] Pioglitazone [Actos] 30 mg PO DAILY 01/18/19 01/18/19 History Allergies Allergy/AdvReac Type Severity Reaction Status Date / Time iodine Allergy Itching Verified 01/18/19 16:12 Physical Exam Vitals: Vital Signs Temp Pulse Pulse Resp BP BP BP 01/19/19 12:00 97.8 F 80 18 01/19/19 10:54 153/76 117/73 01/19/19 08:30 18 01/19/19 08:00 98.3 F 72 18 01/19/19 04:00 98.8 F 79 18 01/18/19 23:33 99.1 F 71 18 01/18/19 23:26 71 18 01/18/19 20:30 66 18 01/18/19 20:00 98.2 F 66 18 01/18/19 19:27 98 18 112/74 01/18/19 19:00 60 18 134/74 01/18/19 18:30 63 18 126/68 01/18/19 17:30 66 18 142/77 01/18/19 17:00 62 18 112/73 01/18/19 16:30 64 18 112/70 01/18/19 15:26 98.5 F 65 20 112/70 01/18/19 15:21 97.5 F L 72 18 90/58 BP Pulse Ox 01/19/19 12:00 137/76 94 L 01/19/19 10:54 137/76 01/19/19 08:30 01/19/19 08:00 126/65 92 L 01/19/19 04:00 167/93 93 L 01/18/19 23:33 157/81 90 L 01/18/19 23:26 01/18/19 20:30 01/18/19 20:00 144/77 95 01/18/19 19:27 96 01/18/19 19:00 96 01/18/19 18:30 98 01/18/19 17:30 96 01/18/19 17:00 96 01/18/19 16:30 95 01/18/19 15:26 96 01/18/19 15:21 95 Intake and Output 01/18/19 01/19/19 01/19/19 22:59 06:59 14:59 Intake Total 300 Output Total 200 Balance -200 300 Intake: Oral 300 Output: Urine 200 Other: # Voids 2 Weight 113.58 kg Results - Lab Results Most recent lab results Calcium 9.5 mg/dL (8.4-10.2) 01/19/19 03:51 Phosphorus 4.6 mg/dL (2.5-4.5) H 01/18/19 16:00 Magnesium 2.1 mg/dL (1.6-2.3) 01/18/19 16:00 01/18/19 16:00 01/19/19 03:51 Assessment and Plan Plan: Assessment: 1. Acute kidney injury secondary to ATN secondary to hypotension. Rule out urinary retention. Creatinine was 2.88 on admission and is 2.17 today. UA is benign. 2. Syncopal episode. Echocardiogram revealed preserved ejection fraction. No significant hypotension while in the hospital. Possibly defecation syncope. 3. Diabetes mellitus. 4. Benign hypertension. Plan: Maintain normal saline at 75 mL an hour. Check bladder scan. Check renal ultrasound. Hold antihypertensives for systolic blood pressure less than 120. Avoid nephrotoxins. Avoid metformin as GFR is less than 30. Thank you for the consultation. I will continue to follow the patient with you during his hospital stay.
--- NOTE | 2019-01-19 13:13 | US ---
EXAMINATION TYPE: US kidneys/renal and bladder DATE OF EXAM: 01/19/2019 COMPARISON: NONE CLINICAL HISTORY: BALBINA. BALBINA, history of renal cysts EXAM MEASUREMENTS: Right Kidney: 12.9 x 5.6 x 5.5 cm Left Kidney: 11.0 x 4.7 x 3.6 cm Right Kidney: cystic areas noted, largest = 1.3 x 1.2 x 1.4cm, similar in size Left Kidney: cystic areas noted, largest = 0.9 x 0.9 x 1.1cm, similar to prior Bladder: appears wnl, volume = 244ml Bilateral Jets seen: no There is no evidence for hydronephrosis at this point in time. No nephrolithiasis is seen. Cortical medullary differentiation is maintained bilaterally. The urinary bladder is anechoic. Bilateral uret eral jets are not seen. IMPRESSION: Essentially stable exam.
[2019-01-19] MEDS: INSULIN ASPART (NovoLOG) 100 UNIT/ML VIAL SQ SCH ×3 (13:50→21:04)
--- NOTE | 2019-01-19 15:54 | P.HPIM ---
History of Present Illness H&P Date: 01/19/19 Chief Complaint: Syncope This is a 78-year-old male patient of Dr. Benites with past medical history of coronary artery disease status post CABG, diabetes mellitus type 2, hypertension, hyperlipidemia, history of hepatitis C status post treatment, osteoarthritis, gout. Patient denies any history of kidney disease. Patient has multiple vague symptoms including difficulty sleeping, itching, and leg cramps that make him get out of bed. He states on Thursday at 4 AM he was up in the bathroom trying to have a bowel movement and became sweaty and nauseated end up passing out on the floor. He states he woke up on the floor he had some minor bruising to the left elbow and knee but no other injury. He states he has been trying to lose weight recently dropped 15 pounds. He states he has been drinking lots of water. He states he did take 1-2 ibuprofen over the weekend but does not normally take NSAIDs. He states he has been using [employer] instant breakfast protein drinks to help lose weight. He states he has chronic shortness of breath when he goes upstairs. He states his lower extremity edema is lower than it normally is. He does complain of constipation and took a Dulcolax without improvement. He states over the weekend he monitored his blood pressure and it was high and low. He contacted Dr. Benites office on Thursday and make an appointment for Thursday. In the office his blood pressure was 50/30. The patient was instructed to come into [facility] for emergency and initial blood pressure was 90/58. Initially his amlodipine was held and he was started on metformin. His blood pressure this morning 167/93. He was orthostatic positive. CBC is unremarkable. Lactic acid 1.7. Troponin negative. Electrolytes within normal limits, BUN 49 creatinine 2.88. Calcium 10.4 and phosphorus 4.6. Troponin negative on 3 draws triglycerides 297, cholesterol 166, LDL 74, HDL 33, TSH 3.520. Patient was placed on the observa tion unit and consult requested with cardiology and nephrology. Patient has been started on IV fluids, repeat lab work ordered and nephrotoxic medications held. Review of Systems Constitutional: Denies chills, Denies fatigue, Denies fever, Denies lethargy, De nies malaise, Denies poor appetite, Denies weakness Eyes: denies blurred vision, denies pain Ears, nose, mouth and throat: Denies dysphagia, Denies headache, Denies nasal congestion, Denies nasal discharge, Denies sore throat, Denies vertigo Cardiovascular: Reports dyspnea on exertion, Reports lightheadedness, Reports syncope, Denies chest pain, Denies shortness of breath Respiratory: Denies cough, Denies cough with sputum, Denies dyspnea, Denies excessive sputum, Denies hemoptysis, Denies home oxygen, Denies wheezing Gastrointestinal: Reports constipation, Denies abdominal pain, Denies diarrhea, Denies loss of appetite, Denies nausea, Denies vomiting Genitourinary: Denies dysuria, Denies flank pain, Denies hematuria, Denies urinary frequency, Denies urinary hesitancy, Denies urinary retention Musculoskeletal: Denies frequent falls, Denies gait dysfunction, Denies muscle weakness, Denies myalgias Integumentary: Denies pruritus, Denies rash, Denies wounds Neurological: Denies change in mentation, Denies confusion, Denies gait dysfunction, Denies numbness, Denies weakness Psychiatric: Denies anxiety, Denies depression Endocrine: Denies fatigue, Denies weight change Past Medical History Past Medical History: Asthma, Coronary Artery Disease (CAD), Chest Pain / Angina, Diabetes Mellitus, Hyperlipidemia, Hypertension, Liver Disease, Osteoarthritis (OA), Pneumonia, Thyroid Disorder Additional Past Medical History / Comment(s): hx hepatitis C, hx bursitis great toes, cranial impact History of Any Multi-Drug Resistant Organisms: None Reported Past Surgical History: Adenoidectomy, Coronary Bypass/CABG, Heart Catheterization, Orthopedic Surgery, Tonsillectomy Additional Past Surgical History / Comment(s): quad bypass, ptosis catherine eye, botox injection eyes, catherine knee arthroscopy, Past Anesthesia/Blood Transfusion Reactions: Previous Problems w/ Anesthesia, Motion Sickness Additional Past Anesthesia/Blood Transfusion Reaction / Comment(s): diff coming out of anesthesia Past Psychological History: No Psychological Hx Reported Smoking Status: Never smoker Past Alcohol Use History: None Reported Additional Past Alcohol Use History / Comment(s): The patient is a lifelong nonsmoker. He denies any marijuana, street drug or alcohol use. He lives at home with his . Past Drug Use History: None Reported - Past Family History Daughter(s) Family Medical History: Cancer Additional Family Medical History / Comment(s): Patient has one daughter with no major medical problems. Father Additional Family Medical History / Comment(s): Father at age 74 from nonalcoholic cirrhosis of the liver. Mother Additional Family Medical History / Comment(s): Mother at age 74 from a nonmalignant growth in her lung. Brother(s) Additional Family Medical History / Comment(s): Patient does not have any brothers or sisters. Son(s) Additional Family Medical History / Comment(s): patient has one son with obesity and hypertension. Medications and Allergies Home Medications Medication Instructions Recorded Confirmed Type Aspirin [Adult Low Dose Aspirin EC] 81 mg PO HS 11/20/16 01/18/19 History Atorvastatin [Lipitor] 40 mg PO HS 11/20/16 01/18/19 History Celecoxib [CeleBREX] 200 mg PO MOWEFRSA 11/20/16 01/18/19 History Glucosam/Ralph-Msm1/C/Jay/Bosw 1 tab PO BID 11/20/16 01/18/19 History [Glucosamine-Chondroitin Tablet] Metoprolol Tartrate [Lopressor] 50 mg PO BID 11/20/16 01/18/19 History Multivitamins, Thera [Multivitamin 1 tab PO DAILY 11/20/16 01/18/19 History (formulary)] amLODIPine [Norvasc] 10 mg PO HS 11/20/16 01/18/19 History metFORMIN HCL [Glucophage] 500 mg PO BID 11/20/16 01/18/19 History sitaGLIPtin [Januvia] 100 mg PO DAILY 11/20/16 01/18/19 History Levothyroxine Sodium [Synthroid] 75 mcg PO MOTUWETHFRSA 02/16/18 01/18/19 History Allopurinol [Zyloprim] 150 mg PO HS 01/18/19 01/18/19 History Fenofibrate Nanocrystallized 145 mg PO DAILY 01/18/19 01/18/19 History [Tricor] Pioglitazone [Actos] 30 mg PO DAILY 01/18/19 01/18/19 History Allergies Allergy/AdvReac Type Severity Reaction Status Date / Time iodine Allergy Itching Verified 01/18/19 16:12 Physical Exam Vitals: Vital Signs Temp Pulse Pulse Resp BP BP Pulse Ox 01/19/19 08:00 98.3 F 72 18 126/65 92 L 01/19/19 04:00 98.8 F 79 18 167/93 93 L 01/18/19 23:33 99.1 F 71 18 157/81 90 L 01/18/19 23:26 71 18 01/18/19 20:30 66 18 01/18/19 20:00 98.2 F 66 18 144/77 95 01/18/19 19:27 98 18 112/74 96 01/18/19 19:00 60 18 134/74 96 01/18/19 18:30 63 18 126/68 98 01/18/19 17:30 66 18 142/77 96 01/18/19 17:00 62 18 112/73 96 01/18/19 16:30 64 18 112/70 95 01/18/19 15:26 98.5 F 65 20 112/70 96 01/18/19 15:21 97.5 F L 72 18 90/58 95 Intake and Output 01/18/19 01/19/19 01/19/19 22:59 06:59 14:59 Output Total 200 Balance -200 Output: Urine 200 Other: # Voids 2 Weight 113.58 kg Gen: This is a 78-year-old male. He is resting in bed and appears to be comfortable and in no acute distress. HEENT: Head is atraumatic, normocephalic. Pupils equal, round. Sclerae is anicteric. NECK: Supple. No JVD. No lymphadenopathy. No thyromegaly. LUNGS: Clear to auscultation. No wheezes or rhonchi. No intercostal retractions. HEART: Regular rate and rhythm. No murmur. ABDOMEN: Soft. Bowel sounds are present. No masses. No tenderness. EXTREMITIES: Trace bilateral pedal edema. No calf tenderness. Dorsalis pedis +2 bilaterally. NEUROLOGICAL: Patient is awake, alert and oriented x3. Cranial nerves 2 through 12 are grossly intact. Results CBC & Chem 7: 01/18/19 16:00 01/19/19 03:51 Labs: Abnormal Lab Results - Last 24 Hours (Table) 01/18/19 01/19/19 01/19/19 Range/Units 16:00 03:51 07:31 BUN 49 H (9-20) mg/dL Creatinine 2.88 H (0.66-1.25) mg/dL Glucose 107 H (74-99) mg/dL POC Glucose (mg/dL) 130 H (75-99) mg/dL Calcium 10.4 H (8.4-10.2) mg/dL Phosphorus 4.6 H (2.5-4.5) mg/dL Triglycerides 297 H (<150) mg/dL HDL Cholesterol 33 L (40-60) mg/dL Thrombosis Risk Factor Assmnt - DVT/VTE Prophylaxis DVT/VTE Prophylaxis: Pharmacologic Prophylaxis ordered - Choose All That Apply Any of the Below Risk Factors Present?: Yes Each Factor Represents 1 point: Acute MO, Obesity (BMI >25) Other Risk Factors: Yes Each Risk Factor Represents 3 Points: Age 75 years or older Other congenital or acquired thrombophilia - If yes, enter type in comment: No Thrombosis Risk Factor Assessment Total Risk Factor Score: 5 Thrombosis Risk Factor Assessment Level: High Risk Assessment and Plan Plan: 1. Syncopal episode most likely secondary to orthostatic hypotension. Patient started on IV fluids 75 mL per hour. Cardiology consult appreciated. Echocardiogram ordered. Hold amlodipine. Continue Lopressor 50 mg twice daily. Repeat basic metabolic panel and magnesium in the morning. 2. Acute kidney injury with chronic kidney disease stage III. Consult with nephrology. Continue IV fluids. Hold Celebrex, TriCor, metformin. No nonsteroidals. 3. History of coronary artery disease status post CABG, stable. Continue aspirin 81 mg daily, Lipitor 40 mg at bedtime, Lopressor. 4. Diabetes mellitus type 2. Hold metformin. Continue gentle 5 mg daily, Actos 30 mg daily, NovoLog scale before meals and at bedtime. 5. Hypertension. Continue Lopressor. Hold amlodipine. 6. Hyperlipidemia. Continue statin 7. History of hepatitis C, treated. 8. Obesity with BMI of 35. 9. Generalized osteoarthritis. Discontinue Celebrex 10. Hypothyroidism. Continue levothyroxine 75 g Thursday through Thursday. Patient places an observation status. Discharge plan: Return home in the next 24-48 hours. Impression and plan of care have been directed as dictated by the signing dane katz. Mihaela Roberts nurse practitioner acting as scribe for signing physician.
[2019-01-19 16:43] LABS: Glucose,Whole Blood 124 mg/dL (75-99)
[2019-01-19 20:57] LABS: Glucose,Whole Blood 90 mg/dL (75-99)
[2019-01-19] MEDS ORDERED: ATORVASTATIN 40 MG TAB PO SCH (21:00)
[2019-01-19] MEDS ORDERED: LEVOTHYROXINE 75 MCG TAB PO SCH (21:00)
[2019-01-19] MEDS ORDERED: amLODIPine 10 MG TAB PO SCH (21:00)
[2019-01-19] MEDS ORDERED: ASPIRIN 81 MG PO SCH (21:00)
[2019-01-19] MEDS ORDERED: ALLOPURINOL 300 MG TAB PO SCH (21:00)
[2019-01-19] MEDS ORDERED: metFORMIN 500 MG TAB PO SCH (21:00)
[2019-01-20] MEDS: SODIUM CHLORIDE 0.9% 1,000 ML IV SCH (01:48)
[2019-01-20 06:06] LABS: Calcium 9.3 mg/dL (8.4-10.2); Magnesium 1.9 mg/dL (1.6-2.3); Potassium 4.1 mmol/L (3.5-5.1)
[2019-01-20 06:54] LABS: Glucose,Whole Blood 155 mg/dL (75-99)
[2019-01-20] MEDS ORDERED: metFORMIN 500 MG TAB PO SCH (08:00)
[2019-01-20] MEDS: INSULIN ASPART (NovoLOG) 100 UNIT/ML VIAL SQ SCH ×2 (08:12→12:00)
[2019-01-20] MEDS: METOPROLOL TARTRATE 50 MG TAB PO SCH (08:17)
[2019-01-20] MEDS: PIOGLITAZONE 30 MG TAB PO SCH (08:17)
[2019-01-20] MEDS: LINAGLIPTIN 5 MG TABLET PO SCH (08:17)
[2019-01-20] MEDS ORDERED: amLODIPine 5 MG TAB PO SCH (09:00)
[2019-01-20] MEDS ORDERED: FENOFIBRATE 160 MG TAB PO SCH (09:00)
--- NOTE | 2019-01-20 09:43 | P.PN ---
Subjective Patient is seen in follow-up for acute kidney injury. Renal function is improving with IV fluids. Creatinine 2.0 today. No dizziness or syncopal episodes while in the hospital. Oral intake is good. Vital signs are stable. General: The patient appeared well nourished and normally developed. HEENT: Head exam is unremarkable. Neck is without jugular venous distension. LUNGS: Lungs are clear to auscultation and percussion. Breath sounds decreased. HEART: Rate and Rhythm are regular. First and second heart sounds normal. No murmurs, rubs or gallops. ABDOMEN: Abdominal exam reveals normal bowel sounds. Non-tender and non- distended. No evidence of peritonitis. EXTREMITITES: No clubbing, cyanosis, or edema. Objective - Vital Signs Vital signs: Vital Signs Temp 98.4 F 01/20/19 07:47 Pulse 58 L 01/20/19 07:47 Resp 18 01/20/19 07:47 BP 156/78 01/20/19 07:47 Pulse Ox 95 01/20/19 07:47 Intake & Output 01/19/19 01/20/19 01/20/19 18:59 06:59 18:59 Intake Total 600 400 Output Total 389 2250 Balance 211 -1850 Intake: Oral 600 400 Output: Urine 300 2250 Post Void Residual 89 Other: Voiding Method Toilet Toilet Toilet Urinal Urinal # Voids 1 1 - Labs CBC & Chem 7: 01/18/19 16:00 01/20/19 05:34 Labs: Abnormal Lab Results - Last 24 Hours (Table) 01/19/19 01/19/19 01/19/19 Range/Units 03:51 12:08 16:42 BUN 45 H (9-20) mg/dL Creatinine 2.72 H (0.66-1.25) mg/dL Glucose 120 H (74-99) mg/dL POC Glucose (mg/dL) 192 H 124 H (75-99) mg/dL 01/20/19 01/20/19 Range/Units 05:34 06:53 BUN 33 H (9-20) mg/dL Creatinine 2.08 H (0.66-1.25) mg/dL Glucose 123 H (74-99) mg/dL POC Glucose (mg/dL) 155 H (75-99) mg/dL Assessment and Plan Plan: Assessment: 1. Acute kidney injury secondary to ATN secondary to hypotension. No evidence of urinary retention. Creatinine was 2.88 on admission and is 2.08 today. UA is benign. No hydronephrosis noted on kidney ultrasound. 2. Syncopal episode. Echocardiogram revealed preserved ejection fraction. No significant hypotension while in the hospital. Possibly defecation syncope. 3. Diabetes mellitus. 4. Benign hypertension. Controlled. Plan: Maintain normal saline at 75 mL an hour. Hold antihypertensives for systolic blood pressure less than 120. Avoid nephrotoxins. Avoid metformin if GFR is less than 30.
--- NOTE | 2019-01-20 11:08 | P.PN ---
Subjective This is a pleasant 78-year-old male past medical history significant for four-vessel coronary artery bypass in 2002, diabetes mellitus, hypertension, dyslipidemia, hypothyroidism and hepatitis C. he follows in the office with Dr. Tucker. He is seen and examined up walking around the room. He states he just had a large bowel movement. He has no further symptoms of dizziness, syncope or near syncope. Blood pressure this morning 156/78 heart rate 58. Laboratory data reviewed, sodium 139, potassium 4.1, creatinine 2.08 with a GFR of 30. Currently maintained on Lopressor 50 mg twice a day, atorvastatin 40 mg daily and aspirin 81 mg daily. Echocardiogram reviewed, EF hyperdynamic greater than 70%, mild MR and mild TR. Telemetry tracings unremarkable, no arrhythmia noted. GENERAL: This is a 78-year-old male in no apparent distress at the time of my examination. Obese. HEENT: Head is atraumatic, normocephalic. Pupils are equal, round. Sclerae anicteric. Conjunctivae are clear. Mucous membranes of the mouth are moist. Neck is supple. There is no jugular venous distention. No carotid bruit is heard. LUNGS: Clear to auscultation no wheezes, rales or rhonchi. No chest wall tenderness is noted on palpation or with deep breathing. HEART: Regular rate and rhythm without murmurs, rubs or gallops. S1 and S2 heard. EXTREMITIES: No evidence of peripheral edema and no calf tenderness noted. ASSESSMENT Syncope and multiple episodes of near syncope over the previous 4 days with hypertension at home. Acute kidney injury History of coronary artery disease status post bypass grafting Diabetes mellitus Hypertension Dyslipidemia History of hepatitis C Obesity, BMI 35 PLAN Resume amlodipine at lower dose of 5 mg daily today. No evidence of arrhythmia. Ongoing medical management. Nurse Practitioner note has been reviewed, I agree with a documented findings and plan of care. Patient was seen and examined. Objective - Vital Signs Vital signs: Vital Signs Temp 98.4 F 01/20/19 07:47 Pulse 58 L 01/20/19 07:47 Resp 18 01/20/19 07:47 BP 156/78 01/20/19 07:47 Pulse Ox 95 01/20/19 07:47 Intake & Output 01/19/19 01/20/19 01/20/19 18:59 06:59 18:59 Intake Total 600 400 Output Total 389 2250 Balance 211 -1850 Intake: Oral 600 400 Output: Urine 300 2250 Post Void Residual 89 Other: Voiding Method Toilet Toilet Toilet Urinal Urinal # Voids 1 1 - Labs CBC & Chem 7: 01/18/19 16:00 01/20/19 05:34 Labs: Abnormal Lab Results - Last 24 Hours (Table) 01/19/19 01/19/19 01/20/19 Range/Units 12:08 16:42 05:34 BUN 33 H (9-20) mg/dL Creatinine 2.08 H (0.66-1.25) mg/dL Glucose 123 H (74-99) mg/dL POC Glucose (mg/dL) 192 H 124 H (75-99) mg/dL 01/20/19 Range/Units 06:53 BUN (9-20) mg/dL Creatinine (0.66-1.25) mg/dL Glucose (74-99) mg/dL POC Glucose (mg/dL) 155 H (75-99) mg/dL
[2019-01-20 11:51] LABS: Glucose,Whole Blood 90 mg/dL (75-99)
[2019-01-20 11:55] VITALS: BP 135/76; PULSE 56; RESP 17; TEMP 97.6
--- NOTE | 2019-01-20 15:55 | P.DS ---
Providers Date of admission: 01/18/19 18:09 Expected date of discharge: 01/20/19 Attending physician: Efrem Fortune Consults: 01/18/19 18:09 Consult Physician Urgent Consulting Provider: Abigail Tucker Consult Reason/Comments: syncope Do you want consulting provider notified?: Yes 01/19/19 11:47 Consult Physician Routine Consulting Provider: Mich Mcadams Consult Reason/Comments: [place] Do you want consulting provider notified?: Yes [facility] Course: This is a 78-year-old male patient of Dr. Benites with past medical history of coronary artery disease status post CABG, diabetes mellitus type 2, hypertension, hyperlipidemia, history of hepatitis C status post treatment, osteoarthritis, gout. Patient denies any history of kidney disease. Patient has multiple vague symptoms including difficulty sleeping, itching, and leg cramps that make him get out of bed. He states on Thursday at 4 AM he was up in the bathroom trying to have a bowel movement and became sweaty and nauseated end up passing out on the floor. He states he woke up on the floor he had some minor bruising to the left elbow and knee but no other injury. He states he has been trying to lose weight recently dropped 15 pounds. He states he has been drinking lots of water. He states he did take 1-2 ibuprofen over the weekend but does not normally take NSAIDs. He states he has been using [place] instant breakfast protein drinks to help lose weight. He states he has chronic shortness of breath when he goes upstairs. He states his lower extremity edema is lower than it normally is. He does complain of constipation and took a Dulcolax without improvement. He states over the weekend he monitored his blood pressure and it was high and low. He contacted Dr. Benites office on Thursday and make an appointment for Thursday. In the office his blood pressure was 50/30. The patient was instructed to come into [facility] for emergen cy and initial blood pressure was 90/58. Initially his amlodipine was held and he was started on metformin. His blood pressure this morning 167/93. He was orthostatic positive. CBC is unremarkable. Lactic acid 1.7. Troponin negative. Electrolytes within normal limits, BUN 49 creatinine 2.88. Calcium 10.4 and phosphorus 4.6. Troponin negative on 3 draws triglycerides 297, cholesterol 166, LDL 74, HDL 33, TSH 3.520. Patient was placed on the observation unit and consult requested with cardiology and nephrology. Patient has been started on IV fluids, repeat lab work ordered and nephrotoxic medications held. 01/20: Repeat lab work this morning reveals BUN of 33 and creatinine 2.08. Magnesium is 1.9. Blood sugars running between 90 and 155. Urinalysis was negative, no protein. Renal ultrasound was essentially stable exam. Echocardiogram reveals EF greater than 70% with moderate concentric left hypertrophy, mild mitral regurgitation, mild tricuspid regurgitation, mild pulmonary hypertension. Patient has been seen and followed by cardiology and acute coronary syndrome has been ruled out. Patient is also been seen by nephrology with recommendations to continue normal saline at 75 mL per hour, check bladder scan, hold antihypertensives for less than 120 systolic. Metformin, Celebrex, TriCor and nonsteroidals all on hold. Bladder scan revealed postvoid of 76-100 MLS. Patient has been cleared for discharge from cardiology and nephrology. Patient will be discharged home today in stable condition. Discharge diagnoses: 1. Syncopal episode most likely secondary to orthostatic hypotension. 2. Acute kidney injury and ATN with chronic kidney disease stage III. 3. History of coronary artery disease status post CABG, stable. 4. Diabetes mellitus type 2. 5. Hypertension. 6. Hyperlipidemia. 7. History of hepatitis C, treated. 8. Obesity with BMI of 35. 9. Generalized osteoarthritis. 10. Hypothyroidism. Discharge plan: Return home Impression and plan of care have been directed as dictated by the signing physician. Mihaela Roberts nurse practitioner acting as scribe for signing physician. Patient Condition at Discharge: Good Plan - Discharge Summary Discharge Rx Participant: No New Discharge Prescriptions: New amLODIPine [Norvasc] 5 mg PO DAILY #30 tab Fenofibrate 54 mg PO DAILY #30 tablet sitaGLIPtin PHOSPHATE [Januvia] 50 mg PO DAILY #30 tab Continue Atorvastatin [Lipitor] 40 mg PO HS Aspirin [Adult Low Dose Aspirin EC] 81 mg PO HS Glucosam/Ralph-Msm1/C/Jay/Bosw [Glucosamine-Chondroitin Tablet] 1 tab PO BID Metoprolol Tartrate [Lopressor] 50 mg PO BID Multivitamins, Thera [Multivitamin (formulary)] 1 tab PO DAILY Levothyroxine Sodium [Synthroid] 75 mcg PO MOTUWETHFRSA Allopurinol [Zyloprim] 150 mg PO HS Pioglitazone [Actos] 30 mg PO DAILY Discontinued amLODIPine [Norvasc] 10 mg PO HS metFORMIN HCL [Glucophage] 500 mg PO BID Celecoxib [CeleBREX] 200 mg PO MOWEFRSA sitaGLIPtin [Januvia] 100 mg PO DAILY Fenofibrate Nanocrystallized [Tricor] 145 mg PO DAILY Discharge Medication List Aspirin [Adult Low Dose Aspirin EC] 81 mg PO HS 11/20/16 [History] Atorvastatin [Lipitor] 40 mg PO HS 11/20/16 [History] Glucosam/Ralph-Msm1/C/Jay/Bosw [Glucosamine-Chondroitin Tablet] 1 tab PO BID 11/20/16 [History] Metoprolol Tartrate [Lopressor] 50 mg PO BID 11/20/16 [History] Multivitamins, Thera [Multivitamin (formulary)] 1 tab PO DAILY 11/20/16 [History] Levothyroxine Sodium [Synthroid] 75 mcg PO MOTUWETHFRSA 02/16/18 [History] Allopurinol [Zyloprim] 150 mg PO HS 01/18/19 [History] Pioglitazone [Actos] 30 mg PO DAILY 01/18/19 [History] Fenofibrate 54 mg PO DAILY #30 tablet 01/20/19 [Rx] amLODIPine [Norvasc] 5 mg PO DAILY #30 tab 01/20/19 [Rx] sitaGLIPtin PHOSPHATE [Januvia] 50 mg PO DAILY #30 tab 01/20/19 [Rx] Follow up Appointment(s)/Referral(s): Abigail Tucker MD [STAFF PHYSICIAN] - 2 Weeks Shashank Benites MD [Primary Care Provider] - 1 Week Mich Mcadams DO [STAFF PHYSICIAN] - 1 Week Ambulatory/Diagnostic Orders: Basic Metabolic Panel [LAB.AMB] Location: None Selected Discharge Disposition: HOME SELF-CARE
== END 2019-01-20 13:34 | disposition home or self-care (01) ==
LOC: EC 15:14 → 1SOBS 18:09
PROVIDERS: ADMIT Internal Medicine; ATTEND Internal Medicine
DX: R55 Syncope and collapse (principal); N17.0 Acute kidney failure with tubular necrosis; I12.9 Hypertensive chronic kidney disease with stage 1 through stage 4 chronic kidney disease, or unspecified chronic kidney disease; N18.3 Chronic kidney disease, stage 3 (moderate); E11.22 Type 2 diabetes mellitus with diabetic chronic kidney disease; I25.10 Atherosclerotic heart disease of native coronary artery without angina pectoris; I08.1 Rheumatic disorders of both mitral and tricuspid valves; I27.20 Pulmonary hypertension, unspecified; E78.5 Hyperlipidemia, unspecified; M15.9 Polyosteoarthritis, unspecified; E03.9 Hypothyroidism, unspecified; M10.9 Gout, unspecified; J45.909 Unspecified asthma, uncomplicated; K59.00 Constipation, unspecified; E66.9 Obesity, unspecified; Z68.35 Body mass index [BMI] 35.0-35.9, adult; R11.0 Nausea; R61 Generalized hyperhidrosis; I95.9 Hypotension, unspecified; G47.9 Sleep disorder, unspecified; R25.2 Cramp and spasm; S50.02XA Contusion of left elbow, initial encounter; S80.02XA Contusion of left knee, initial encounter; W19.XXXA Unspecified fall, initial encounter; Y92.002 Bathroom of unspecified non-institutional (private) residence as the place of occurrence of the external cause; Z79.82 Long term (current) use of aspirin; Z79.84 Long term (current) use of oral hypoglycemic drugs; Z79.890 Hormone replacement therapy; Z79.899 Other long term (current) drug therapy; Z91.048 Other nonmedicinal substance allergy status; Z86.19 Personal history of other infectious and parasitic diseases; Z95.1 Presence of aortocoronary bypass graft; Z87.01 Personal history of pneumonia (recurrent); I25.2 Old myocardial infarction; Z87.39 Personal history of other diseases of the musculoskeletal system and connective tissue; Z80.9 Family history of malignant neoplasm, unspecified; Z82.49 Family history of ischemic heart disease and other diseases of the circulatory system; Z83.49 Family history of other endocrine, nutritional and metabolic diseases; Z83.79 Family history of other diseases of the digestive system
CPT/HCPCS: 93005 ×2; 96361 ×3; 96374; 99285; 36415; 83880; 80061; 80053; 80048 ×2; 82550; 83605; 83735 ×2; 84100; 84443; 84484 ×2; 85025; 85610; 85730; 81003; 74022; 76770; G0378 ×3; C8929; J2405; Q9950; 93306

== ENCOUNTER 2020-06-27 23:16 | Inpatient (IN) | payer MEDICARE ==
[2020-06-28] MEDS ORDERED: ONDANSETRON 4 MG/2 ML VIAL IVP PRN (00:34)
[2020-06-28] MEDS ORDERED: NALOXONE 0.4 MG/ML 1 ML VIAL IV PRN (00:34)
[2020-06-28] MEDS ORDERED: ACETAMINOPHEN TAB 500 MG TAB PO STA (00:34)
[2020-06-28] MEDS ORDERED: MORPHINE SULFATE 4 MG/ML SYRINGE IV PRN (00:34)
[2020-06-28] MEDS ORDERED: ALBUTEROL HFA INHALER INHALATION STA (00:34)
--- NOTE | 2020-06-28 00:38 | ED ---
Recheck HPI - General Chief Complaint: Shortness of Breath Stated Complaint: Covid + Time Seen by Provider: 06/28/20 00:32 Source: patient, RN notes reviewed, old records reviewed Mode of arrival: ambulatory Limitations: no limitations - History of Present Illness Initial Comments: This is a 80-year-old male patient of who presents today to the ER for e valuation of severe shortness of breath, patient presents with not feeling well, known history of coronavirus with past medical history of hypertension, hyperlipidemia, hypothyroidism, diabetes mellitus type 2, coronary artery disease with 4 vessel CABG, generalized osteoarthritis, history of hepatitis C, gout. Patient states that he has had symptoms for 2 weeks which include body aches, shortness of breath coming foggy thinking. He denies any nausea, vomiting or diarrhea. He states he has had sputum production. He denies any lower extremity edema. Patient does not have home oxygen. MD Complaint: other (Positive known coronavirus) -: days(s) Returns Today for: Called Because of Abnormal Lab/Test, persistent/worsening pain related to initial visit, other (Worsening shortness of breath) Symptoms Since Prior Visit: worsening pain, fever Context: other (Symptoms are significantly worse) Associated Symptoms: fever, chills, shortness of breath, malaise, nausea - Related Data Home Medications Medication Instructions Recorded Confirmed Aspirin [Adult Low Dose Aspirin EC] 81 mg PO HS 11/20/16 06/28/20 Metoprolol Tartrate [Lopressor] 50 mg PO BID 11/20/16 06/28/20 Multivitamins, Thera [Multivitamin 1 tab PO DAILY 11/20/16 06/28/20 (formulary)] Levothyroxine Sodium [Synthroid] 75 mcg PO DAILY 02/16/18 06/28/20 Pioglitazone [Actos] 30 mg PO DAILY 01/18/19 06/28/20 allopurinoL [Zyloprim] 150 mg PO HS 01/18/19 06/28/20 Atorvastatin [Lipitor] 80 mg PO HS 06/28/20 06/28/20 Fenofibrate [Lofibra] 160 mg PO DAILY 06/28/20 06/28/20 Previous Rx's Medication Instructions Recorded amLODIPine [Norvasc] 5 mg PO DAILY #30 tab 01/20/19 Allergies Allergy/AdvReac Type Severity Reaction Status Date / Time iodine Allergy Itching Verified 06/28/20 07:18 Review of Systems ROS Statement: Those systems with pertinent positive or pertinent negative responses have been documented in the HPI. ROS Other: All systems not noted in ROS Statement are negative. Past Medical History Past Medical History: Asthma, Coronary Artery Disease (CAD), Chest Pain / Angina, Diabetes Mellitus, Hyperlipidemia, Hypertension, Liver Disease, Osteoarthritis (OA), Pneumonia, Thyroid Disorder Additional Past Medical History / Comment(s): hx hepatitis C, hx bursitis great toes, cranial impact. Covid 06/17 History of Any Multi-Drug Resistant Organisms: None Reported Past Surgical History: Adenoidectomy, Coronary Bypass/CABG, Heart Catheterization, Orthopedic Surgery, Tonsillectomy Additional Past Surgical History / Comment(s): quad bypass, ptosis catherine eye, botox injection eyes, catherine knee arthroscopy, Past Anesthesia/Blood Transfusion Reactions: Previous Problems w/ Anesthesia, Motion Sickness Additional Past Anesthesia/Blood Transfusion Reaction / Comment(s): diff coming out of anesthesia Past Psychological History: No Psychological Hx Reported Smoking Status: Never smoker Past Alcohol Use History: None Reported Past Drug Use History: None Reported - Past Family History Daughter(s) Family Medical History: Cancer Additional Family Medical History / Comment(s): Patient has one daughter with no major medical problems. Father Additional Family Medical History / Comment(s): Father at age 74 from nonalcoholic cirrhosis of the liver. Mother Additional Family Medical History / Comment(s): Mother at age 74 from a nonmalignant growth in her lung. Brother(s) Additional Family Medical History / Comment(s): Patient does not have any brothers or sisters. Son(s) Additional Family Medical History / Comment(s): patient has one son with obesity and hypertension. General Exam Limitations: no limitations General appearance: alert, in no apparent distress, anxious Head exam: Present: atraumatic, normocephalic, normal inspection Eye exam: Present: normal appearance, PERRL, EOMI. Absent: scleral icterus, conjunctival injection, periorbital swelling ENT exam: Present: normal exam, mucous membranes moist Neck exam: Present: normal inspection. Absent: tenderness, meningismus, lymphadenopathy Respiratory exam: Present: respiratory distress, chest wall tenderness, accessory muscle use, decreased breath sounds, prolonged expiratory. Absent: wheezes, rales, rhonchi, stridor Cardiovascular Exam: Present: regular rate, normal rhythm, normal heart sounds. Absent: systolic murmur, diastolic murmur, rubs, gallop, clicks GI/Abdominal exam: Present: soft, normal bowel sounds. Absent: distended, tenderness, guarding, rebound, rigid Extremities exam: Present: normal inspection, full ROM, normal capillary refill. Absent: tenderness, pedal edema, joint swelling, calf tenderness Back exam: Present: normal inspection Neurological exam: Present: alert, oriented X3, CN II-XII intact Psychiatric exam: Present: normal affect, normal mood Skin exam: Present: warm, dry, intact, normal color. Absent: rash Course Vital Signs 06/28/20 06/28/20 06/28/20 00:07 01:39 03:22 Temperature 100.1 F H Pulse Rate 75 Respiratory 24 Rate Blood Pressure 125/63 O2 Sat by Pulse 83 L 90 L 92 L Oximetry 06/28/20 06/28/20 06/28/20 06:43 07:58 08:35 Temperature 98.3 F 98 F Pulse Rate 56 L 72 Respiratory 18 18 Rate Blood Pressure 130/85 145/75 O2 Sat by Pulse 90 L 87 L 88 L Oximetry 06/28/20 06/28/20 06/28/20 11:45 12:02 13:00 Temperature 98.9 F Pulse Rate Respiratory Rate Blood Pressure O2 Sat by Pulse 82 L 86 L Oximetry 06/28/20 06/28/20 15:00 21:00 Temperature 100.3 F H 96.5 F L Pulse Rate 70 80 Respiratory 18 16 Rate Blood Pressure 169/82 169/79 O2 Sat by Pulse 89 L 90 L Oximetry - Reevaluation(s) Reevaluation #1: Medical record is reviewed Patient still severe shortness of breath hypoxia here in the ER with supplemental O2 Patient informed results, questions answered Patient is okay for admission Medical Decision Making - Medical Decision Making 80 male DF for evaluation known coronavirus coronavirus pneumonia and hypoxia. Patient be admitted for supportive care, continue treatment and evaluation - Lab Data Result diagrams: 06/28/20 01:10 06/28/20 01:10 - EKG Data -: EKG Interpreted by Me (EKG shows sinus rhythm 66 MD 200 QRS all 4 QTC 421) - Radiology Data Radiology results: report reviewed (Chest x-rays positive bilateral pneumonia), image reviewed Critical Care Time Critical Care Time: Yes Total Critical Care Time: 31 Disposition Clinical Impression: Weakness, Coronavirus infection, Pneumonia due to COVID-19 virus, Hypoxia, Syncope Disposition: ADMITTED IP TO THIS HOSP Condition: Fair Is patient prescribed a controlled substance at d/c from ED?: No
--- NOTE | 2020-06-28 01:02 | XR ---
EXAM: XR Chest, 1 View CLINICAL HISTORY: ITS.REASON XR Reason: Covid-positive TECHNIQUE: Frontal view of the chest. COMPARISON: 01/18/2019 FINDINGS: Lungs: Low lung volumes. Bibasilar patchy opacities. Pleural space: Unremarkable. No pneumothorax. Heart: Unremarkable. No cardiomegaly. Mediastinum: Median sternotomy wires in place with surgical clips consistent with prior CABG. Bones/joints: Unremarkable. IMPRESSION: Bibasilar patchy opacities consistent with multifocal infection. No pleural effusions or pneumothorax.
[2020-06-28 01:41] LABS: Basophils % (A) 1 %; Eosinophils # (A) 0.1 k/uL (0-0.7); Eosinophils % (A) 1 %; HCT 43.4 % (39.0-53.0); HGB 14.7 gm/dL (13.0-17.5); Lymphocytes # (A) 0.5 k/uL (1.0-4.8); Lymphocytes % (A) 8 %; MCH 29.6 pg (25.0-35.0); MCHC 33.8 g/dL (31.0-37.0); MCV 87.5 fL (80.0-100.0); Mean Platelet Volume 7.7; Monocytes # (A) 0.4 k/uL (0-1.0); Monocytes % (A) 7 %; Neutrophils # (A) 5.2 k/uL (1.3-7.7); Neutrophils % (A) 82 %; Platelet Count 186 k/uL (150-450); RBC 4.96 m/uL (4.30-5.90); RDW 13.9 % (11.5-15.5); WBC 6.4 k/uL (3.8-10.6)
[2020-06-28 01:55] LABS: Partial Thromboplastin Time 25.2 sec (22.0-30.0); Prothrombin Time 10.8 sec (9.0-12.0)
[2020-06-28 01:56] LABS: Albumin 3.9 g/dL (3.5-5.0); C Reactive Protein 85.9 mg/L (<10.0); Calcium 9.3 mg/dL (8.4-10.2); Magnesium 1.9 mg/dL (1.6-2.3); Potassium 4.3 mmol/L (3.5-5.1); Total Bilirubin 0.7 mg/dL (0.2-1.3); Total Protein 6.8 g/dL (6.3-8.2)
[2020-06-28] MEDS: ALBUTEROL HFA INHALER INHALATION SCH ×5 (02:19→22:02)
[2020-06-28] MEDS ORDERED: ACETAMINOPHEN TAB 325 MG TAB PO PRN (07:14)
[2020-06-28] MEDS: ENOXAPARIN 40 MG/0.4 ML SYRINGE SQ SCH (08:35)
[2020-06-28] MEDS: methylPREDNISolone SOD SUCCI 125 MG/2 ML VIAL IV SCH ×2 (12:50→18:17)
[2020-06-28] MEDS: PIPERACILLIN-TAZOBACTAM 3.375 GM in SODIUM CHLORIDE 0.9% 100 ML IVPB SCH ×2 (12:50→18:17)
[2020-06-28 12:56] LABS: Glucose,Whole Blood 171 mg/dL (75-99)
[2020-06-28] MEDS: INSULIN ASPART (NovoLOG) 100 UNIT/ML VIAL SQ SCH ×3 (13:00→21:22)
--- NOTE | 2020-06-28 13:25 | P.HPIM ---
History of Present Illness H&P Date: 06/28/20 Chief Complaint: ANISHA HISTORY OF PRESENT ILLNESS This is a 80-year-old male patient of Dr. 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 Patient states that he has had symptoms for 2 weeks which include body aches, shortness of breath coming foggy thinking. He denies any nausea, vomiting or diarrhea. He states he has had sputum production. He denies any lower extremity edema. Patient does not have home oxygen. Patient presented to [facility] emergency center for evaluation. Chest x-ray reveals bibasilar patchy opacities consistent with multifocal infection. No pleural effusions or pneumothorax. Temperature 100.1, heart rate 75, respiratory rate 24, blood pressure 125/63 and pulse ox 83% on room air. EKG was a sinus rhythm at 66 bpm. CBC was unremarkable except for lymphocytosis of 0.5. INR 1.0. Sodium 135, BUN 28 creatinine 1.68. Blood sugar 202. Lactic acid 1.6. Liver function tests were normal. LDH 730. C- reactive protein and a 5.9. ProBNP 522. REVIEW OF SYSTEMS Constitutional: Reports fever, Reports chills, no night sweats. No weight change. Reports weakness, Reports fatigue Reports lethargy. Reports daytime sleepiness. EENT: No headache. No blurred vision or double vision, no loss of vision. No loss of Hearing, no ringing in the ears, no dizziness. No nasal drainage or congestion. No epistaxis. No sore throat. Lungs: Reports shortness of breath, Reports cough, Reports sputum production. No wheezing. Cardiovascular: No chest pain, no lower extremity edema. No palpitations. No paroxysmal nocturnal dyspnea. No orthopnea. No lightheadedness or dizziness. No syncopal episodes. Abdominal: No abdominal pain. No nausea, vomiting. No diarrhea. No constipation. No bloody or tarry stools.. No loss of appetite. Genitourinary: No dysuria, increased frequency, urgency. No urinary retention. Musculoskeletal: Reports myalgias. Reports muscle weakness, no gait dysfunction, no frequent falls. No back pain. No neck pain. Integumentary: No wounds, no lesions. No rash or pruritus. No unusual bruising. Neurologic: No aphasia. No facial droop. No change in mentation. No head injury. No headache. No paralysis. No paresthesia. Psychiatric: No depression. No anxiety. Endocrine: No abnormal blood sugars. No weight change. SOCIAL HISTORY Patient is a lifelong nonsmoker. He denies any marijuana, street drug or alcohol use. He lives at home with his .. FAMILY HISTORY Mother at age 74 from nonmalignant growth in her lungs. Father at age 74 from nonalcoholic cirrhosis of the liver. She does not have any brothers or sisters. Patient has one daughter with no major medical problems. Patient has one son with obesity and hypertension. PHYSICAL EXAMINATION Gen: This is a morbidly obese 80-year-old male. He is resting on the ER stretcher with mild respiratory distress. Patient is on HFNC. HEENT: Head is atraumatic, normocephalic. Pupils equal, round. Sclerae is anicteric. NECK: Supple. No JVD. No lymphadenopathy. No thyromegaly. LUNGS: Clear to auscultation. No wheezes or rhonchi. No intercostal retractions. HEART: Regular rate and rhythm. No murmur. ABDOMEN: Soft. Bowel sounds are present. No masses. No tenderness. EXTREMITIES: No pedal edema. No calf tenderness. NEUROLOGICAL: Patient is awake, alert and oriented x3. Cranial nerves 2 through 12 are grossly intact. ASSESSMENT AND PLAN 1. Acute hypoxic respiratory failure secondary to COVID19 Pneumonia. Continue oxygen therapy, consult with pulmonary medicine, blood cultures in process. Patient started on Solu-Medrol 60 mg IV every 6 hours, Lovenox 40 mg daily, albuterol inhaler 2 puffs every 6 hours, vitamins C, vitamin D, zinc. 2. Possible secondary bacterial gram-negative pneumonia. Patient started on Zosyn 3.375 g IV piggyback every 8 hours. 3. Acute kidney injury with chronic kidney disease stage III. Continue IV fluids 0.9 normal saline. Recheck lab work in the morning. 3. History of coronary artery disease status post CABG, stable. Continue aspir in 81 mg daily, Lipitor 80 mg at bedtime, Lopressor 50 mg twice daily. 4. Diabetes mellitus type 2. Continue Actos 30 mg daily, NovoLog scale before meals and at bedtime. 5. Hypertension. Continue Lopressor, Norvasc 5 mg daily. 6. Hyperlipidemia. Continue atorvastatin and fenofibrate 7. History of hepatitis C, treated. 8. Obesity with BMI of 37. 9. Generalized osteoarthritis. Tylenol as needed for pain. 10. Hypothyroidism. Continue levothyroxine 75 g daily. 11. GI prophylaxis. Protonix. 12. DVT prophylaxis. Lovenox. Patient will be admitted to the hospital for a minimum of 2 night stay. DISCHARGE PLAN To be determined. Impression and plan of care have been directed as dictated by the signing physician. Miheala Roberts nurse practitioner acting as scribe for signing physician. Past Medical History Past Medical History: Asthma, Coronary Artery Disease (CAD), Chest Pain / Angina, Diabetes Mellitus, Hyperlipidemia, Hypertension, Liver Disease, Osteoarthritis (OA), Pneumonia, Thyroid Disorder Additional Past Medical History / Comment(s): hx hepatitis C, hx bursitis great toes, cranial impact. Covid 06/17 History of Any Multi-Drug Resistant Organisms: None Reported Past Surgical History: Adenoidectomy, Coronary Bypass/CABG, Heart Catheterization, Orthopedic Surgery, Tonsillectomy Additional Past Surgical History / Comment(s): quad bypass, ptosis catherine eye, botox injection eyes, catherine knee arthroscopy, Past Anesthesia/Blood Transfusion Reactions: Previous Problems w/ Anesthesia, Motion Sickness Additional Past Anesthesia/Blood Transfusion Reaction / Comment(s): diff coming out of anesthesia Past Psychological History: No Psychological Hx Reported Smoking Status: Never smoker Past Alcohol Use History: None Reported Past Drug Use History: None Reported - Past Family History Daughter(s) Family Medical History: Cancer Additional Family Medical History / Comment(s): Patient has one daughter with no major medical problems. Father Additional Family Medical History / Comment(s): Father at age 74 from nonalcoholic cirrhosis of the liver. Mother Additional Family Medical History / Comment(s): Mother at age 74 from a nonmalignant growth in her lung. Brother(s) Additional Family Medical History / Comment(s): Patient does not have any brothers or sisters. Son(s) Additional Family Medical History / Comment(s): patient has one son with obesity and hypertension. Medications and Allergies Home Medications Medication Instructions Recorded Confirmed Type Aspirin [Adult Low Dose Aspirin EC] 81 mg PO HS 11/20/16 06/28/20 History Metoprolol Tartrate [Lopressor] 50 mg PO BID 11/20/16 06/28/20 History Multivitamins, Thera [Multivitamin 1 tab PO DAILY 11/20/16 06/28/20 History (formulary)] Levothyroxine Sodium [Synthroid] 75 mcg PO DAILY 02/16/18 06/28/20 History Pioglitazone [Actos] 30 mg PO DAILY 01/18/19 06/28/20 History allopurinoL [Zyloprim] 150 mg PO HS 01/18/19 06/28/20 History amLODIPine [Norvasc] 5 mg PO DAILY #30 tab 01/20/19 06/28/20 Rx Atorvastatin [Lipitor] 80 mg PO HS 06/28/20 06/28/20 History Fenofibrate [Lofibra] 160 mg PO DAILY 06/28/20 06/28/20 History Allergies Allergy/AdvReac Type Severity Reaction Status Date / Time iodine Allergy Itching Verified 06/28/20 07:18 Physical Exam Vitals: Vital Signs Temp Pulse Resp BP Pulse Ox 06/28/20 08:35 98 F 72 18 145/75 88 L 06/28/20 07:58 87 L 06/28/20 06:43 98.3 F 56 L 18 130/85 90 L 06/28/20 03:22 92 L 06/28/20 01:39 90 L 06/28/20 00:07 100.1 F H 75 24 125/63 83 L Intake and Output 06/27/20 06/28/20 06/28/20 22:59 06:59 14:59 Other: Weight 117.934 kg Results CBC & Chem 7: 06/28/20 01:10 06/28/20 01:10 Labs: Abnormal Lab Results - Last 24 Hours (Table) 06/28/20 06/28/20 Range/Units 01:10 01:10 Lymphocytes # 0.5 L (1.0-4.8) k/uL Sodium 135 L (137-145) mmol/L BUN 28 H (9-20) mg/dL Creatinine 1.68 H (0.66-1.25) mg/dL Glucose 202 H (74-99) mg/dL Lactate Dehydrogenase 730 H (313-618) U/L C-Reactive Protein 85.9 H (<10.0) mg/L
--- NOTE | 2020-06-28 14:33 | P.CNPUL ---
History of Present Illness Consult date: 06/28/20 Requesting physician: Shashank Benites Reason for consult: dyspnea, cough, hypoxemia, pneumonia, abnormal CXR/CT Chief complaint: Shortness of breath, weakness, cough. History of present illness: 80-year-old male, seen in the emergency department, on June 27. The patient came in complaining of weakness, fatigue, shortness of breath, chest congestion, and nonproductive cough. He's been sick for at least 2 weeks. He tells me he tested positive on Thursday but he actually may have tested positive on June 17. Currently, the patient's on 6 L nasal cannula. He is not receiving any IV fluids. He has a history of asthma, coronary artery disease, chest pain, angina, diabetes mellitus, hypertension, hyperlipidemia, osteoarthritis, pneumonia, hepatitis C, bursitis, and previous bypass grafting. The patient denies ever smoking cigarettes. Current lab data includes a white count 6.4, hematocrit 43.4, hemoglobin 14.7, and a platelet count of 186,000. PT, INR and PTT are normal. Sodium 135, potassium 4.3, chlorides 100, CO2 25, anion gap 10, BUN 28, creatinine 1.68. LDH is 730, C-reactive protein is 85.9. A d-dimer was not done. N-terminal proBNP was 522. A chest x-ray done in the emergency department shows bilateral patchy infiltrates, consistent with coronavirus pneumonia. Review of Systems REVIEW OF SYSTEMS: CONSTITUTIONAL: Weakness and fatigue for 2 weeks. NEUROLOGIC: [ Negative.] HEENT: [ Negative.] CARDIAC: [Negative.] PULMONARY: Shortness of breath, and cough. GI: Poor oral intake. : [Negative.] RHEUMATOLOGIC: [ Negative.] IMMUNOLOGIC: [ Negative.] ENDOCRINE: [Negative. ] DERMATOLOGIC: [Negative.] Past Medical History Past Medical History: Asthma, Coronary Artery Disease (CAD), Chest Pain / Angina, Diabetes Mellitus, Hyperlipidemia, Hypertension, Liver Disease, Osteoarthritis (OA), Pneumonia, Thyroid Disorder Additional Past Medical History / Comment(s): hx hepatitis C, hx bursitis great toes, cranial impact. Covid 06/17 History of Any Multi-Drug Resistant Organisms: None Reported Past Surgical History: Adenoidectomy, Coronary Bypass/CABG, Heart Catheterization, Orthopedic Surgery, Tonsillectomy Additional Past Surgical History / Comment(s): quad bypass, ptosis catherine eye, botox injection eyes, catherine knee arthroscopy, Past Anesthesia/Blood Transfusion Reactions: Previous Problems w/ Anesthesia, Motion Sickness Additional Past Anesthesia/Blood Transfusion Reaction / Comment(s): diff coming out of anesthesia Past Psychological History: No Psychological Hx Reported Smoking Status: Never smoker Past Alcohol Use History: None Reported Past Drug Use History: None Reported - Past Family History Daughter(s) Family Medical History: Cancer Additional Family Medical History / Comment(s): Patient has one daughter with no major medical problems. Father Additional Family Medical History / Comment(s): Father at age 74 from nonalcoholic cirrhosis of the liver. Mother Additional Family Medical History / Comment(s): Mother at age 74 from a nonmalignant growth in her lung. Brother(s) Additional Family Medical History / Comment(s): Patient does not have any brothers or sisters. Son(s) Additional Family Medical History / Comment(s): patient has one son with obesity and hypertension. Medications and Allergies Home Medications Medication Instructions Recorded Confirmed Type Aspirin [Adult Low Dose Aspirin EC] 81 mg PO HS 11/20/16 06/28/20 History Metoprolol Tartrate [Lopressor] 50 mg PO BID 11/20/16 06/28/20 History Multivitamins, Thera [Multivitamin 1 tab PO DAILY 11/20/16 06/28/20 History (formulary)] Levothyroxine Sodium [Synthroid] 75 mcg PO DAILY 02/16/18 06/28/20 History Pioglitazone [Actos] 30 mg PO DAILY 01/18/19 06/28/20 History allopurinoL [Zyloprim] 150 mg PO HS 01/18/19 06/28/20 History amLODIPine [Norvasc] 5 mg PO DAILY #30 tab 01/20/19 06/28/20 Rx Atorvastatin [Lipitor] 80 mg PO HS 06/28/20 06/28/20 History Fenofibrate [Lofibra] 160 mg PO DAILY 06/28/20 06/28/20 History Allergies Allergy/AdvReac Type Severity Reaction Status Date / Time iodine Allergy Itching Verified 06/28/20 07:18 Physical Exam Osteopathic Statement: *. No significant issues noted on an osteopathic structural exam other than those noted in the History and Physical/Consult. Vitals: Vital Signs Temp Pulse Resp BP Pulse Ox 06/28/20 13:00 98.9 F 06/28/20 12:02 86 L 06/28/20 11:45 82 L 06/28/20 08:35 98 F 72 18 145/75 88 L 06/28/20 07:58 87 L 06/28/20 06:43 98.3 F 56 L 18 130/85 90 L 06/28/20 03:22 92 L 06/28/20 01:39 90 L 06/28/20 00:07 100.1 F H 75 24 125/63 83 L Intake and Output 06/27/20 06/28/20 06/28/20 22:59 06:59 14:59 Other: Weight 117.934 kg No acute distress, oriented 3. Patient currently on 6 L. No conversational dyspnea or use of accessory muscles noted. HEENT examination is grossly unremarkable. Mucous membranes are moist. No oral lesions. Neck supple. Full range of motion. No adenopathy thyromegaly or neck vein distention. Cardiovascular examination reveals regular rhythm rate. S1-S2 normal. No S3 or S4. No discernible murmur noted. Heart rate 72 bpm. Lungs reveal bilateral rhonchi and few scattered crackles. There are no wheezes. Breath sounds equal bilaterally.. Abdomen soft bowel sounds are heard. No masses or tenderness. Extremities are intact. No cyanosis clubbing or edema. Skin is without rash or lesion. Neurologic examination is brief but nonfocal. Results - Laboratory Findings CBC and BMP: 06/28/20 01:10 06/28/20 01:10 PT/INR, D-dimer PT 10.8 sec (9.0-12.0) 06/28/20 01:10 INR 1.0 (<1.2) 06/28/20 01:10 Abnormal lab findings: Abnormal Labs 06/28/20 06/28/20 06/28/20 01:10 01:10 12:55 Lymphocytes # 0.5 L Sodium 135 L BUN 28 H Creatinine 1.68 H Glucose 202 H POC Glucose (mg/dL) 171 H Lactate Dehydrogenase 730 H C-Reactive Protein 85.9 H - Diagnostic Findings Chest x-ray: image reviewed Assessment and Plan Assessment: Acute hypoxemic respiratory failure secondary to COVID 19 pneumonia. History of chronic bronchial asthma. Lifelong nonsmoker. History of CAD, status post bypass grafting. History of diabetes mellitus. Hyperlipidemia by history. Hypertension. Hepatitis C. History of pneumonia. History of hypothyroidism. History of osteoarthritis. Plan: Plan dated 06/28/2020. The patient is not a candidate for REM. The patient should get vitamin C, vitamin D3, and zinc. In addition, we'll need to do a D-dimer test. The patient should also get corticosteroids. The patient should also be on a lacunar preferably Lovenox. Additional recommendations and suggestions are forthcoming. The patient is on Zosyn. Not sure why that is. We will check a pro-calcitonin level. If his low, should be discontinued. Additional recommendations and suggestions are forthcoming. We'll follow. Repeat chest x- ray in a day or 2, and inflammatory markers every 2 or 3 days. Prognosis is guarded. Time with Patient: Greater than 30
[2020-06-28] MEDS: amLODIPine 5 MG TAB PO SCH (15:42)
[2020-06-28] MEDS: SODIUM CHLORIDE 0.9% 1,000 ML IV SCH (15:45)
[2020-06-28 18:12] LABS: Glucose,Whole Blood 263 mg/dL (75-99)
[2020-06-28 20:55] LABS: Glucose,Whole Blood 330 mg/dL (75-99)
[2020-06-28] MEDS: METOPROLOL TARTRATE 50 MG TAB PO SCH (21:23)
[2020-06-28] MEDS: ATORVASTATIN 80 MG TAB PO SCH (21:24)
[2020-06-28] MEDS: ASPIRIN 81 MG PO SCH (21:24)
[2020-06-28] MEDS: allopurinoL 300 MG TAB PO SCH (21:29)
[2020-06-29] MEDS: methylPREDNISolone SOD SUCCI 125 MG/2 ML VIAL IV SCH ×4 (00:05→17:49)
[2020-06-29] MEDS: PIPERACILLIN-TAZOBACTAM 3.375 GM in SODIUM CHLORIDE 0.9% 100 ML IVPB SCH ×3 (00:21→15:44)
[2020-06-29] MEDS: LEVOTHYROXINE 75 MCG TAB PO SCH (06:17)
[2020-06-29] MEDS: ALBUTEROL HFA INHALER INHALATION SCH ×4 (07:14→19:20)
[2020-06-29 07:45] LABS: Glucose,Whole Blood 263 mg/dL (75-99)
[2020-06-29] MEDS: INSULIN ASPART (NovoLOG) 100 UNIT/ML VIAL SQ SCH ×3 (08:35→17:48)
[2020-06-29] MEDS: SODIUM CHLORIDE 0.9% 1,000 ML IV SCH ×2 (08:35→16:44)
[2020-06-29] MEDS: amLODIPine 5 MG TAB PO SCH (08:37)
[2020-06-29] MEDS: ASCORBIC ACID 500 MG TAB PO SCH (08:39)
[2020-06-29] MEDS: PANTOPRAZOLE 40 MG TABLET PO SCH (08:39)
[2020-06-29] MEDS: ENOXAPARIN 40 MG/0.4 ML SYRINGE SQ SCH (08:45)
[2020-06-29] MEDS: CHOLECALCIFEROL 25 MCG (1000 IU) TABLET PO SCH (08:45)
[2020-06-29] MEDS: METOPROLOL TARTRATE 50 MG TAB PO SCH ×2 (08:46→22:43)
[2020-06-29] MEDS: ZINC SULFATE 220 MG CAP PO SCH (08:46)
[2020-06-29] MEDS: MULTIVITAMINS, THERA 1 EACH TAB PO SCH (08:47)
[2020-06-29] MEDS: PIOGLITAZONE 30 MG TAB PO SCH (08:47)
[2020-06-29] MEDS: FENOFIBRATE 160 MG TAB PO SCH (10:56)
[2020-06-29 11:29] LABS: HCT 45.5 % (39.6-50.0); HGB 14.8 g/dL (13.0-17.0); MCHC 32.5 g/dL (32.0-37.0); MCV 89.2 fL (80.0-97.0); Mean Platelet Volume 10.9 fL (9.5-12.2); Platelet Count 233 X 10*3/uL (140-440); RDW 14.1 % (11.5-14.5); WBC 11.21 X 10*3/uL (4.50-10.00)
[2020-06-29] MEDS: SYMBICORT 160-4.5 MCG INHALER INHALATION SCH ×2 (11:31→19:21)
--- NOTE | 2020-06-29 11:46 | XR ---
EXAMINATION TYPE: XR chest 1V DATE OF EXAM: 06/29/2020 COMPARISON: Chest x-ray 06/28/2020 HISTORY: Decreased oxygen saturation, abnormal chest x-ray, positive Covid TECHNIQUE: Single frontal view of the chest is obtained. FINDINGS: Bilateral airspace disease may progressed in the interval. No evident pneumothorax or pleu ral effusion. Cardiac mediastinal silhouette not significant changed, patient is post median sternoto my. Aorta is dense. IMPRESSION: Findings consistent with pneumonia.
[2020-06-29] MEDS: guaiFENesin 600 MG TABLET.ER PO SCH ×2 (12:20→22:43)
[2020-06-29 12:23] LABS: Glucose,Whole Blood 239 mg/dL (75-99)
--- NOTE | 2020-06-29 12:55 | P.PN ---
Subjective Progress Note Date: 06/29/20 Principal diagnosis: Shortness of breath, cough. 80-year-old male, seen in the emergency department, on June 27. The patient came in complaining of weakness, fatigue, shortness of breath, chest congestion, and nonproductive cough. He's been sick for at least 2 weeks. He tells me he tested positive on Thursday but he actually may have tested positive on June 17. Currently, the patient's on 6 L nasal cannula. He is not receiving any IV fluids. He has a history of asthma, coronary artery disease, chest pain, angina, diabetes mellitus, hypertension, hyperlipidemia, osteoarthritis, pneumonia, hepatitis C, bursitis, and previous bypass grafting. The patient denies ever smoking cigarettes. Current lab data includes a white count 6.4, hematocrit 43.4, hemoglobin 14.7, and a platelet count of 186,000. PT, INR and PTT are normal. Sodium 135, potassium 4.3, chlorides 100, CO2 25, anion gap 10, BUN 28, creatinine 1.68. LDH is 730, C-reactive protein is 85.9. A d-dimer was not done. N-terminal proBNP was 522. A chest x-ray done in the emergency department shows bilateral patchy infiltrates, consistent with coronavirus pneumonia. Progress note dated 06/29/2020. This is a 80-year-old patient who I saw yesterday in the emergency department, in consultation. The patient was moved over to room 152, and I saw the patient this morning in the observation unit. Currently, the patient's quite short of breath. He is lying on his right side. His saturations are in the high 70s, on 15 L nasal cannula, and nonrebreather mask. Is getting saline at 75 mL an hour since I saw him yesterday, the patient states that he feeling more short of breath. Does cough. The cough causes pain in the chest. He's not coughing up any phlegm. No fever or chills. He denies any chest pain or pressure. White count was 11.2 and hemoglobin 14.8, hematocrit 45.5, platelet count 233,000. Chest x-ray shows bilateral patchy infiltrates. Because the patient was sick for such a long period of time, he was not a candidate for REM. The patient will be moved to the intensive care unit, we can be watched more closely. The patient in the end, may require intubation and mechanical ventilation. Objective - Vital Signs Vital signs: Vital Signs Temp 97.7 F 06/29/20 07:50 Pulse 82 06/29/20 07:50 Resp 20 06/29/20 07:50 BP 137/66 06/29/20 07:50 Pulse Ox 84 L 06/29/20 07:50 Intake & Output 06/28/20 06/29/20 06/29/20 18:59 06:59 18:59 Output Total 230 400 Balance -230 -400 Weight 117.934 kg Output: Urine 230 400 Other: Voiding Method Urinal Urinal # Voids 1 - Exam Conversational dyspnea, without audible wheezing. Oriented 3. Patient currently on nonrebreather mask, and 15 L high flow oxygen therapy. HEENT examination is grossly unremarkable. Mucous membranes are moist. No oral lesions. Neck supple. Full range of motion. No adenopathy thyromegaly or neck vein distention. Cardiovascular examination reveals regular rhythm rate. S1-S2 normal. No S3 or S4. No discernible murmur noted. Heart rate 82 bpm. Lungs reveal bilateral rhonchi and few scattered crackles. There are no wheezes. Breath sounds equal bilaterally.. Abdomen soft bowel sounds are heard. No masses or tenderness. Extremities are intact. No cyanosis clubbing or edema. Skin is without rash or lesion. Neurologic examination is brief but nonfocal. - Labs CBC & Chem 7: 06/29/20 08:02 06/28/20 01:10 Labs: Abnormal Lab Results - Last 24 Hours (Table) 06/28/20 06/28/20 06/28/20 Range/Units 01:10 12:55 18:10 WBC (4.50-10.00) X 10*3/uL POC Glucose (mg/dL) 171 H 263 H (75-99) mg/dL Procalcitonin 0.12 H (0.02-0.09) ng/mL 06/28/20 06/29/20 06/29/20 Range/Units 20:54 07:40 08:02 WBC 11.21 H (4.50-10.00) X 10*3/uL POC Glucose (mg/dL) 330 H 263 H (75-99) mg/dL Procalcitonin (0.02-0.09) ng/mL 06/29/20 Range/Units 12:14 WBC (4.50-10.00) X 10*3/uL POC Glucose (mg/dL) 239 H (75-99) mg/dL Procalcitonin (0.02-0.09) ng/mL Microbiology - Last 24 Hours (Table) 06/28/20 01:55 Blood Culture - Preliminary Blood No Growth after 24 hours 06/28/20 01:10 Blood Culture - Preliminary Blood No Growth after 24 hours Assessment and Plan Assessment: Acute hypoxemic respiratory failure secondary to COVID 19 pneumonia, with significantly worsening oxygenation. History of chronic bronchial asthma. Lifelong nonsmoker. History of CAD, status post bypass grafting. History of diabetes mellitus. Hyperlipidemia by history. Hypertension. Hepatitis C. History of pneumonia. History of hypothyroidism. History of osteoarthritis. Plan: Plan dated 06/28/2020. The patient is not a candidate for REM. The patient should get vitamin C, vitamin D3, and zinc. In addition, we'll need to do a D-dimer test. The patient should also get corticosteroids. The patient should also be on a lacunar preferably Lovenox. Additional recommendations and suggestions are forthcoming. The patient is on Zosyn. Not sure why that is. We will check a pro-calcitonin level. If his low, should be discontinued. Additional recommendations and suggestions are forthcoming. We'll follow. Repeat chest x- ray in a day or 2, and inflammatory markers every 2 or 3 days. Prognosis is guarded. Plan dated 06/29/2020. The patient's oxygenation has significantly worsened in the last 24 hours. The patient is currently on a nonrebreather mask, and 15 L high flow oxygen. The patient's also receiving saline at 75 mL an hour. I'm going to move the patient to the intensive care unit for further monitoring and observation. He may require intubation and mechanical ventilation before the end of the day. I explained that to the patient. Additional recommendations suggestions are forthcoming. Prognosis is guarded. Chest x-ray and labs are reviewed. The pro-calcitonin level was only 0.12, and antibiotics will be discontinued. Time with Patient: Greater than 30
[2020-06-29 13:04] LABS: Glucose,Whole Blood 287 mg/dL (75-99)
[2020-06-29 13:12] LABS: Basophils # (A) 0.01 X 10*3/uL (0.00-0.10); Basophils % (A) 0.1 %; Eosinophils # (A) 0 X 10*3/uL (0.04-0.35); Eosinophils % (A) 0 %; Lymphocytes # (A) 0.62 X 10*3/uL (0.90-5.00); Lymphocytes % (A) 5.5 %; Monocytes % (A) 3.6 %; Neutrophils # (A) 10.08 X 10*3/uL (1.80-7.70); Neutrophils % (A) 89.9 %
--- NOTE | 2020-06-29 13:21 | P.PN ---
Subjective Progress Note Date: 06/29/20 HISTORY OF PRESENT ILLNESS This is a 80-year-old male patient of Dr. 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 Patient states that he has had symptoms for 2 weeks which include body aches, shortness of breath coming foggy thinking. He denies any nausea, vomiting or diarrhea. He states he has had sputum production. He denies any lower extremity edema. Patient does not have home oxygen. Patient presented to [facility] emergency center for evaluation. Chest x-ray reveals bibasilar patchy opacities consistent with multifocal infection. No pleural effusions or pneumothorax. Temperature 100.1, heart rate 75, respiratory rate 24, blood pressure 125/63 and pulse ox 83% on room air. EKG was a sinus rhythm at 66 bpm. CBC was unremarkable except for lymphocytosis of 0.5. INR 1.0. Sodium 135, BUN 28 creatinine 1.68. Blood sugar 202. Lactic acid 1.6. Liver function tests were normal. LDH 730. C- reactive protein and a 5.9. ProBNP 522. 4/2: Patient is seen today on the observation unit as an overflow. Pulse ox is 84% on 15 L hyponasal cannula and nonrebreather. Patient seems to have more shortness of breath today and also complains of wheezing. No significant cough production. No fever or chills. No chest pain. WBC 11.2, hemoglobin 14.8, platelet count 233. Repeat chest x-ray reveals findings consistent with pneumonia. Pro-calcitonin 0.12. Blood sugars running in the 200s. Patient to be moved to the intensive care unit. REVIEW OF SYSTEMS Constitutional: Reports fever, Reports chills, no night sweats. No weight change. Reports weakness, Reports fatigue Reports lethargy. Reports daytime sleepiness. EENT: No headache. No blurred vision or double vision, no loss of vision. No loss of Hearing, no ringing in the ears, no dizziness. No nasal drainage or congestion. No epistaxis. No sore throat. Lungs: Reports worsening shortness of breath, Reports cough, denies sputum production. Reports wheezing. Cardiovascular: No chest pain, no lower extremity edema. No palpitations. No paroxysmal nocturnal dyspnea. No orthopnea. No lightheadedness or dizziness. No syncopal episodes. Abdominal: No abdominal pain. No nausea, vomiting. No diarrhea. No constipation. No bloody or tarry stools.. No loss of appetite. Genitourinary: No dysuria, increased frequency, urgency. No urinary retention. Musculoskeletal: Reports myalgias. Reports muscle weakness, no gait dysfunction, no frequent falls. No back pain. No neck pain. Integumentary: No wounds, no lesions. No rash or pruritus. No unusual bruising. Neurologic: No aphasia. No facial droop. No change in mentation. No head injury. No headache. No paralysis. No paresthesia. Psychiatric: No depression. No anxiety. Endocrine: No abnormal blood sugars. No weight change. PHYSICAL EXAMINATION Gen: This is a morbidly obese 80-year-old male. He is resting in his bed with mild respiratory distress. Patient is on HFNC and nonrebreather. HEENT: Head is atraumatic, normocephalic. Pupils equal, round. Sclerae is anicteric. NECK: Supple. No JVD. No lymphadenopathy. No thyromegaly. LUNGS: Clear to auscultation. No wheezes or rhonchi. No intercostal retractions. HEART: Regular rate and rhythm. No murmur. ABDOMEN: Soft. Bowel sounds are present. No masses. No tenderness. EXTREMITIES: No pedal edema. No calf tenderness. NEUROLOGICAL: Patient is awake, alert and oriented x3. Cranial nerves 2 through 12 are grossly intact. ASSESSMENT AND PLAN 1. Acute hypoxic respiratory failure secondary to COVID19 Pneumonia. Continue oxygen therapy, consult with pulmonary medicine, blood cultures in process. Patient started on Solu-Medrol 60 mg IV every 6 hours, Lovenox 40 mg daily, albuterol inhaler 2 puffs every 6 hours, vitamins C, vitamin D, zinc. Added Symbicort twice daily, he is an ex. Transferred to the intensive care unit. 2. Possible secondary bacterial gram-negative pneumonia. Patient started on Zosyn 3.375 g IV piggyback every 8 hours. 3. Acute kidney injury with chronic kidney disease stage III. Continue IV fluids 0.9 normal saline. Recheck lab work in the morning. 3. History of coronary artery disease status post CABG, stable. Continue aspirin 81 mg daily, Lipitor 80 mg at bedtime, Lopressor 50 mg twice daily. 4. Diabetes mellitus type 2, uncontrolled with hyperglycemia secondary to steroids. Continue Actos 30 mg daily, NovoLog scale before meals and at be dtime, Levemir 10 units daily added. 5. Hypertension. Continue Lopressor, Norvasc 5 mg daily. 6. Hyperlipidemia. Continue atorvastatin and fenofibrate 7. History of hepatitis C, treated. 8. Obesity with BMI of 37. 9. Generalized osteoarthritis. Tylenol as needed for pain. 10. Hypothyroidism. Continue levothyroxine 75 g daily. 11. GI prophylaxis. Protonix. 12. DVT prophylaxis. Lovenox. Prognosis is guarded. DISCHARGE PLAN To be determined. Impression and plan of care have been directed as dictated by the signing physician. Mihaela Roberts nurse practitioner acting as scribe for signing physician. Objective - Vital Signs Vital signs: Vital Signs Temp 97.7 F 06/29/20 07:50 Pulse 82 06/29/20 07:50 Resp 20 06/29/20 07:50 BP 137/66 06/29/20 07:50 Pulse Ox 84 L 06/29/20 07:50 Intake & Output 06/28/20 06/29/20 06/29/20 18:59 06:59 18:59 Output Total 230 Balance -230 Output: Urine 230 Other: Voiding Method Urinal Urinal # Voids 1 - Labs CBC & Chem 7: 06/29/20 08:02 06/28/20 01:10 Labs: Abnormal Lab Results - Last 24 Hours (Table) 06/28/20 06/28/20 06/28/20 Range/Units 01:10 12:55 18:10 POC Glucose (mg/dL) 171 H 263 H (75-99) mg/dL Procalcitonin 0.12 H (0.02-0.09) ng/mL 06/28/20 06/29/20 Range/Units 20:54 07:40 POC Glucose (mg/dL) 330 H 263 H (75-99) mg/dL Procalcitonin (0.02-0.09) ng/mL Microbiology - Last 24 Hours (Table) 06/28/20 01:55 Blood Culture - Preliminary Blood No Growth after 24 hours 06/28/20 01:10 Blood Culture - Preliminary Blood No Growth after 24 hours
[2020-06-29] MEDS ORDERED: propofoL 100 ML IV ONE (13:41)
[2020-06-29 13:44] LABS: Albumin 4.2 g/dL (3.80-4.90); Albumin/Globulin Ratio 2.1 (1.60-3.17); Anion Gap 11.3 mmol/L (4.00-12.00); BUN/Creat Ratio 14.74 Ratio (12.00-20.00); Calcium 8.9 mg/dL (8.7-10.3); Carbon Dioxide 27.7 mmol/L (21.6-31.8); Magnesium 2.3 mg/dL (1.5-2.4); Non-African American GFR(CKD) 32.8 (60.0-200.0); Phosphorus 2.9 mg/dL (2.4-5.1); Total Bilirubin 0.6 mg/dL (0.3-1.2); Total Protein 6.2 g/dL (6.2-8.2)
[2020-06-29] MEDS ORDERED: CHLORHEXIDINE GLUCONATE 15 ML CUP MUCOUS MEM ONE (13:46)
[2020-06-29] MEDS ORDERED: CISATRACURIUM 2 MG/ML 5 ML VIAL IV ONE ×2 (14:24→15:21)
--- NOTE | 2020-06-29 14:25 | XR ---
EXAMINATION TYPE: XR chest 1V confirm line [facility] DATE OF EXAM: 06/29/2020 COMPARISON: 06/29/2020 INDICATION: Line placement TECHNIQUE: Single frontal view of the chest is obtained. FINDINGS: The heart size is enlarged. The pulmonary vasculature is normal. There is a consolidation with air bronchograms in the left lower lobe. Mild patchy infiltrates throug h the right mid lung. Findings appear to be worsening over the interval. There is placement of an endotracheal tuber with the tip 3.7 cm above the joslyn. Nasogastric tube is in place with tip in the right upper quadrant of the abdomen. IMPRESSION: 1. Worsening left base and right perihilar infiltrates. 2. Lines and catheters discussed above.
[2020-06-29] MEDS: INSULIN DETEMIR (LEVEMIR) 100 UNIT/ML SYR SQ SCH (15:18)
[2020-06-29 15:29] LABS: ABG Base Excess 2.4 mmol/L; ABG HCO3 27 mmol/L (21-25); ABG Oxygen Saturation 94.5 % (94-97); ABG PCO2 43 mmHg (35-45); ABG PH 7.41 (7.35-7.45); ABG PO2 74 mmHg (83-108); ABG TCO2 28 mmol/L (19-24); Allen Test Performed? Yes
[2020-06-29] MEDS ORDERED: SODIUM CHLORIDE 0.9% 1,000 ML IV ONE ×2 (15:39→16:42)
[2020-06-29] MEDS: CISATRACURIUM 200 MG in SODIUM CHLORIDE 0.9% 180 ML IV SCH (15:54)
--- NOTE | 2020-06-29 15:58 | XR ---
EXAMINATION TYPE: XR chest 1V portable DATE OF EXAM: 06/29/2020 COMPARISON: Chest x-ray dated 06/29/2020 at earlier time HISTORY: Status post central venous catheter placement TECHNIQUE: Single frontal view of the chest is obtained. FINDINGS: There is been interval placement of a left subclavian central venous catheter, distal tip over the cavoatrial junction. There is no evident pneumothorax or other significant interval change. IMPRESSION: No evident comp occasions status post central venous catheter placement.
[2020-06-29 17:36] LABS: Glucose,Whole Blood 260 mg/dL (75-99)
[2020-06-29] MEDS: allopurinoL 300 MG TAB PO SCH (20:45)
[2020-06-29] MEDS: ASPIRIN 81 MG PO SCH (22:43)
[2020-06-29] MEDS: ATORVASTATIN 80 MG TAB PO SCH (22:43)
[2020-06-29] MEDS: CHLORHEXIDINE GLUCONATE 15 ML CUP MUCOUS MEM SCH (22:44)
[2020-06-30 01:17] LABS: Glucose,Whole Blood 270 mg/dL (75-99)
[2020-06-30] MEDS: methylPREDNISolone SOD SUCCI 125 MG/2 ML VIAL IV SCH ×4 (01:17→19:47)
[2020-06-30] MEDS: PIPERACILLIN-TAZOBACTAM 3.375 GM in SODIUM CHLORIDE 0.9% 100 ML IVPB SCH ×2 (01:17→08:03)
[2020-06-30] MEDS: INSULIN ASPART (NovoLOG) 100 UNIT/ML VIAL SQ SCH ×4 (01:17→19:47)
[2020-06-30 04:40] LABS: Basophils % (A) 0 %; Eosinophils % (A) 0 %; HCT 36.1 % (39.0-53.0); Lymphocytes # (A) 0.5 k/uL (1.0-4.8); Lymphocytes % (A) 4 %; MCHC 33.4 g/dL (31.0-37.0); Monocytes # (A) 0.4 k/uL (0-1.0); Monocytes % (A) 3 %; Neutrophils # (A) 11.9 k/uL (1.3-7.7); Neutrophils % (A) 92 %; Platelet Count 201 k/uL (150-450); RBC 4.01 m/uL (4.30-5.90); RDW 13.9 % (11.5-15.5)
[2020-06-30 04:53] LABS: Albumin 3.2 g/dL (3.5-5.0); Calcium 8.6 mg/dL (8.4-10.2); Potassium 4.2 mmol/L (3.5-5.1); Total Bilirubin 0.5 mg/dL (0.2-1.3); Total Protein 5.8 g/dL (6.3-8.2)
[2020-06-30 05:24] LABS: C Reactive Protein 144.8 mg/L (<10.0)
[2020-06-30 05:25] LABS: ABG Base Excess -1.1 mmol/L; ABG HCO3 25 mmol/L (21-25); ABG PCO2 51 mmHg (35-45); ABG PH 7.31 (7.35-7.45); ABG PO2 53 mmHg (83-108); ABG TCO2 27 mmol/L (19-24); Allen Test Performed? Yes
[2020-06-30] MEDS: SODIUM CHLORIDE 0.9% 1,000 ML IV SCH ×2 (05:34→19:48)
[2020-06-30 06:20] LABS: Glucose,Whole Blood 240 mg/dL (75-99)
[2020-06-30] MEDS: LEVOTHYROXINE 75 MCG TAB PO SCH (06:40)
[2020-06-30] MEDS: PANTOPRAZOLE 40 MG TABLET PO SCH (06:40)
--- NOTE | 2020-06-30 06:44 | XR ---
EXAMINATION TYPE: XR chest 1V portable DATE OF EXAM: 06/30/2020 COMPARISON: 06/29/2020 HISTORY: Central line placement TECHNIQUE: Single frontal view of the chest is obtained. FINDINGS: There is a left central venous catheter entering the left subclavian vein and terminating in SVC/RA junction. ET tube is 7.1 cm above the joslyn. There is an NG tube in the stomach. There is moderate diffuse interstitial opacity consistent with pulmonary vascular congestion and inte rstitial edema essentially unchanged compared to the prior study. There is no pneumothorax or large pleural effusion. The osseous structures are intact IMPRESSION: 1. ET tube 7.1 cm above the joslyn. 2. Central line tip in the SVC/R junction. 3. No change in the interstitial opacity consistent with vascular congestion and interstitial edema
[2020-06-30 07:03] LABS: Glucose,Whole Blood 221 mg/dL (75-99)
[2020-06-30] MEDS: INSULIN DETEMIR (LEVEMIR) 100 UNIT/ML SYR SQ SCH (07:15)
[2020-06-30] MEDS: ALBUTEROL HFA INHALER INHALATION SCH ×4 (07:59→20:18)
[2020-06-30] MEDS: SYMBICORT 160-4.5 MCG INHALER INHALATION SCH ×2 (07:59→20:18)
[2020-06-30] MEDS: ASCORBIC ACID 500 MG TAB PO SCH (08:03)
[2020-06-30] MEDS: CHOLECALCIFEROL 25 MCG (1000 IU) TABLET PO SCH (08:04)
[2020-06-30] MEDS: MULTIVITAMINS, THERA 1 EACH TAB PO SCH (08:04)
[2020-06-30] MEDS: ZINC SULFATE 220 MG CAP PO SCH (08:04)
[2020-06-30] MEDS: CHLORHEXIDINE GLUCONATE 15 ML CUP MUCOUS MEM SCH ×2 (08:04→21:27)
[2020-06-30] MEDS: guaiFENesin 600 MG TABLET.ER PO SCH ×2 (08:04→21:26)
[2020-06-30] MEDS: ENOXAPARIN 40 MG/0.4 ML SYRINGE SQ SCH (08:04)
[2020-06-30] MEDS: FENOFIBRATE 160 MG TAB PO SCH (08:09)
[2020-06-30] MEDS: PIOGLITAZONE 30 MG TAB PO SCH (08:09)
[2020-06-30] MEDS: amLODIPine 5 MG TAB PO SCH (10:29)
[2020-06-30] MEDS: CISATRACURIUM 200 MG in SODIUM CHLORIDE 0.9% 180 ML IV SCH (10:58)
[2020-06-30] MEDS: TOCILIZUMAB 400 MG in SODIUM CHLORIDE 0.9% 80 ML IV SCH (10:59)
[2020-06-30] MEDS: fentaNYL (PF) 1,000 MCG in SODIUM CHLORIDE 0.9% 80 ML IV SCH (11:00)
[2020-06-30] MEDS: METOPROLOL TARTRATE 50 MG TAB PO SCH ×2 (11:14→21:27)
[2020-06-30 11:45] LABS: Glucose,Whole Blood 207 mg/dL (75-99)
--- NOTE | 2020-06-30 14:17 | P.PN ---
Subjective Progress Note Date: 06/30/20 Principal diagnosis: Acute hypoxic referral failure secondary to acute covid 19 pneumonia 10-year-old male, seen in the emergency department, on June 27. The patient came in complaining of weakness, fatigue, shortness of breath, chest congestion, and nonproductive cough. He's been sick for at least 2 weeks. He tells me he tested positive on Thursday but he actually may have tested positive on June 17. Currently, the patient's on 6 L nasal cannula. He is not receiving any IV fluids. He has a history of asthma, coronary artery disease, chest pain, angina, diabetes mellitus, hypertension, hyperlipidemia, osteoarthritis, pneumonia, hepatitis C, bursitis, and previous bypass grafting. The patient denies ever smoking cigarettes. Current lab data includes a white count 6.4, hematocrit 43.4, hemoglobin 14.7, and a platelet count of 186,000. PT, INR and PTT are normal. Sodium 135, potassium 4.3, chlorides 100, CO2 25, anion gap 10, BUN 28, creatinine 1.68. LDH is 730, C-reactive protein is 85.9. A d-dimer was not done. N-terminal proBNP was 522. A chest x-ray done in the emergency department shows bilateral patchy infiltrates, consistent with coronavirus pne umonia. Patient was reevaluated today on 06/30/2020, remains in the ICU, intubated and mechanically ventilated. Patient had an earlier ABG on PEEP of 15, assist control rate 24th, volume 450 FiO2 of 100, and it showed a pO2 of 53 pCO2 of 51 pH of 7.31, hence I increased the PEEP from 15 to 18. Repeat ABG is pending. Patient remains on propofol at 40 mcg/kg/m, Nimbex at 0.75, fentanyl at 0.25, an d he is on enteral feeding. Patient received : 19 cocktail, and today we are adding TOCI/ACTEMRA. Chest x-ray continues to show bilateral interstitial opacities/interstitial infiltrates. Electrolytes are normal BUN is 36 creatinine is 1.58 LDH is 748 C-reactive protein is 144.8 WBC count is 13.0 hemoglobin is 12. D-dimer is 0.19 Objective - Vital Signs Vital signs: Vital Signs Temp 96.9 F L 06/30/20 12:00 Pulse 53 L 06/30/20 13:00 Resp 19 04/03/21 13:00 BP 115/74 06/30/20 05:00 Pulse Ox 91 L 06/30/20 13:00 Intake & Output 06/29/20 06/30/20 06/30/20 18:59 06:59 18:59 Intake Total 2421.640 1301.656 808.028 Output Total 945 365 285 Balance 1476.640 936.656 523.028 Weight 117.934 kg 124.7 kg 124.7 kg Intake: IV 2300 1025 575 Piperacillin-Tazobactam 3 75 125 125 .375 gm In Sodium Chloride 0.9% 100 ml @ 25 mls/hr IVPB Q8HR [facility] Rx# :[id number] Sodium Chloride 0.9% 1, 225 900 450 000 ml @ 75 mls/hr IV . [id number] [facility] Rx#:[id number] Sodium Chloride 0.9% 1, 2000 000 ml @ 999 mls/hr IV . Q1H1M [facility] Rx#:[id number] Intake, IV Titration 121.640 276.656 133.028 Amount Cisatracurium 200 mg In 21.640 76.656 48.588 Sodium Chloride 0.9% 180 ml @ 1 MCG/KG/MIN 7.076 mls/hr IV .Q24H [facility] Rx#: [id number] propofoL 1,000 mg In 100.000 200 84.44 Empty Bag 1 bag @ Titrate IV .Q0M [facility] Rx#: [id number] Oral 100 Output: Urine 945 365 285 Other: Voiding Method Indwelling Catheter Indwelling Catheter Indwelling Catheter ABP, PAP, CO, CI - Last Documented Arterial Blood Pressure 106/57 - Exam Physical Exam: Revealed 80-year-old white male sedated paralyzed intubated mechanically ventilated Head: Atraumatic, normocephalic. Endotracheal tube and orogastric tube are intact. HEENT:[Neck is supple.] [No neck masses.] [No thyromegaly.] [No JVD.] Chest: [No neck chest expansion and crackles at the bases. Cardiac Exam: [Normal S1 and S2, no S3 gallop, no murmur.] Abdomen: [Soft, nontender, no megaly, no rebound, no guarding, normal bowel sounds.] Extremities: [No clubbing, no edema, no cyanosis.] Neurological Exam: Not assessed, patient is sedated and paralyzed. Psychiatric: Could not assess. Musculoskeletal: Could not assess patient is sedated and paralyzed. - Labs CBC & Chem 7: 06/30/20 04:30 06/30/20 04:30 Labs: Abnormal Lab Results - Last 24 Hours (Table) 06/29/20 06/29/20 06/29/20 Range/Units 08:02 15:14 17:32 WBC (3.8-10.6) k/uL RBC (4.30-5.90) m/uL Hgb (13.0-17.5) gm/dL Hct (39.0-53.0) % Neutrophils # (1.3-7.7) k/uL Lymphocytes # (1.0-4.8) k/uL ABG pH (7.35-7.45) ABG pCO2 (35-45) mmHg ABG pO2 74 L (83-108) mmHg ABG HCO3 27 H (21-25) mmol/L ABG Total CO2 28 H (19-24) mmol/L ABG O2 Saturation (94-97) % BUN (9-20) mg/dL Creatinine (0.66-1.25) mg/dL Glucose (74-99) mg/dL POC Glucose (mg/dL) 260 H (75-99) mg/dL Lactate Dehydrogenase 327 H (120-246) U/L C-Reactive Protein (<10.0) mg/L Total Protein (6.3-8.2) g/dL Albumin (3.5-5.0) g/dL 06/30/20 06/30/20 06/30/20 Range/Units 01:15 04:30 04:30 WBC 13.0 H (3.8-10.6) k/uL RBC 4.01 L (4.30-5.90) m/uL Hgb 12.0 L (13.0-17.5) gm/dL Hct 36.1 L (39.0-53.0) % Neutrophils # 11.9 H (1.3-7.7) k/uL Lymphocytes # 0.5 L (1.0-4.8) k/uL ABG pH (7.35-7.45) ABG pCO2 (35-45) mmHg ABG pO2 (83-108) mmHg ABG HCO3 (21-25) mmol/L ABG Total CO2 (19-24) mmol/L ABG O2 Saturation (94-97) % BUN (9-20) mg/dL Creatinine (0.66-1.25) mg/dL Glucose (74-99) mg/dL POC Glucose (mg/dL) 270 H (75-99) mg/dL Lactate Dehydrogenase 748 H (120-246) U/L C-Reactive Protein 144.8 H (<10.0) mg/L Total Protein (6.3-8.2) g/dL Albumin (3.5-5.0) g/dL 06/30/20 06/30/20 06/30/20 Range/Units 04:30 05:16 06:18 WBC (3.8-10.6) k/uL RBC (4.30-5.90) m/uL Hgb (13.0-17.5) gm/dL Hct (39.0-53.0) % Neutrophils # (1.3-7.7) k/uL Lymphocytes # (1.0-4.8) k/uL ABG pH 7.31 L (7.35-7.45) ABG pCO2 51 H (35-45) mmHg ABG pO2 53 L* (83-108) mmHg ABG HCO3 (21-25) mmol/L ABG Total CO2 27 H (19-24) mmol/L ABG O2 Saturation 84.0 L (94-97) % BUN 36 H (9-20) mg/dL Creatinine 1.58 H (0.66-1.25) mg/dL Glucose 274 H (74-99) mg/dL POC Glucose (mg/dL) 240 H (75-99) mg/dL Lactate Dehydrogenase (120-246) U/L C-Reactive Protein (<10.0) mg/L Total Protein 5.8 L (6.3-8.2) g/dL Albumin 3.2 L (3.5-5.0) g/dL 06/30/20 06/30/20 Range/Units 07:02 11:44 WBC (3.8-10.6) k/uL RBC (4.30-5.90) m/uL Hgb (13.0-17.5) gm/dL Hct (39.0-53.0) % Neutrophils # (1.3-7.7) k/uL Lymphocytes # (1.0-4.8) k/uL ABG pH (7.35-7.45) ABG pCO2 (35-45) mmHg ABG pO2 (83-108) mmHg ABG HCO3 (21-25) mmol/L ABG Total CO2 (19-24) mmol/L ABG O2 Saturation (94-97) % BUN (9-20) mg/dL Creatinine (0.66-1.25) mg/dL Glucose (74-99) mg/dL POC Glucose (mg/dL) 221 H 207 H (75-99) mg/dL Lactate Dehydrogenase (120-246) U/L C-Reactive Protein (<10.0) mg/L Total Protein (6.3-8.2) g/dL Albumin (3.5-5.0) g/dL Microbiology - Last 24 Hours (Table) 06/28/20 01:55 Blood Culture - Preliminary Blood No Growth after 48 hours 06/28/20 01:10 Blood Culture - Preliminary Blood No Growth after 48 hours Assessment and Plan Assessment: Impression: Acute hypoxic respiratory failure secondary to covid 19 pneumonia. History of CABG and underlying coronary artery disease. Mild intermittent asthma. Type 2 diabetes. Benign essential hypertension. History of hepatitis C. History of hypothyroidism. Degenerative joint disease. Recommendation: Continue ventilatory support. Continue nutritional support. Continue GI and DVT prophylaxis. Continue covid 19 cocktail. Will add actemra and convalescent plasma. Patient was receiving the window for REM. Titrate FiO2 accordingly and maintain O2 saturation above 90%. Prognosis is extremely poor and guarded. Patient is critically ill. We'll continue to monitor in the ICU on mechanical ventilation, and we'll address that accordingly. Critical care time is over 30 minutes Time with Patient: Greater than 30
[2020-06-30 18:38] LABS: Glucose,Whole Blood 241 mg/dL (75-99)
[2020-06-30 20:52] LABS: Glucose,Whole Blood 233 mg/dL (75-99)
[2020-06-30] MEDS: ASPIRIN 81 MG PO SCH (21:26)
[2020-06-30] MEDS: ATORVASTATIN 80 MG TAB PO SCH (21:27)
[2020-06-30] MEDS: allopurinoL 300 MG TAB PO SCH (21:28)
--- NOTE | 2020-06-30 21:41 | P.PN ---
Subjective Progress Note Date: 06/30/20 HISTORY OF PRESENT ILLNESS This is a 80-year-old male patient of Dr. 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 Patient states that he has had symptoms for 2 weeks which include body aches, shortness of breath coming foggy thinking. He denies any nausea, vomiting or diarrhea. He states he has had sputum production. He denies any lower extremity edema. Patient does not have home oxygen. Patient presented to [facility] emergency center for evaluation. Chest x-ray reveals bibasilar patchy opacities consistent with multifocal infection. No pleural effusions or pneumothorax. Temperature 100.1, heart rate 75, respiratory rate 24, blood pressure 125/63 and pulse ox 83% on room air. EKG was a sinus rhythm at 66 bpm. CBC was unremarkable except for lymphocytosis of 0.5. INR 1.0. Sodium 135, BUN 28 creatinine 1.68. Blood sugar 202. Lactic acid 1.6. Liver function tests were normal. LDH 730. C- reactive protein and a 5.9. ProBNP 522. /2: Patient is seen today on the observation unit as an overflow. Pulse ox is 84% on 15 L hyponasal cannula and nonrebreather. Patient seems to have more shortness of breath today and also complains of wheezing. No significant cough production. No fever or chills. No chest pain. WBC 11.2, hemoglobin 14.8, platelet count 233. Repeat chest x-ray reveals findings consistent with pneumonia. Pro-calcitonin 0.12. Blood sugars running in the 200s. Patient to be moved to the intensive care unit. 06/30: Patient declined significantly in the afternoon yesterday ended up on mechanical ventilation, he been sedated currently his marker are still quite bit high. Patient still required high demand O2 along with high PEEP of 15-20 to keep his pulse ox at the margin of 90 percentile. His blood sugars mildly elevated and still been managed on insulin, white blood cell is up to 13,000 today, his blood gas shows pO2 of 653 only. CO2 of 27 and pH of 7.31 creatinine has slightly improved since yesterday he C-reactive protein is up to 144 and LDH of 748. REVIEW OF SYSTEMS Constitutional: Reports fever, Reports chills, no night sweats. No weight change. Reports weakness, Reports fatigue Reports lethargy. Reports daytime sleepiness. EENT: No headache. No blurred vision or double vision, no loss of vision. No loss of Hearing, no ringing in the ears, no dizziness. No nasal drainage or congestion. No epistaxis. No sore throat. Lungs: Reports worsening shortness of breath, Reports cough, denies sputum production. Reports wheezing. Cardiovascular: No chest pain, no lower extremity edema. No palpitations. No paroxysmal nocturnal dyspnea. No orthopnea. No lightheadedness or dizziness. No syncopal episodes. Abdominal: No abdominal pain. No nausea, vomiting. No diarrhea. No constipation. No bloody or tarry stools.. No loss of appetite. Genitourinary: No dysuria, increased frequency, urgency. No urinary retention. Musculoskeletal: Reports myalgias. Reports muscle weakness, no gait dy sfunction, no frequent falls. No back pain. No neck pain. Integumentary: No wounds, no lesions. No rash or pruritus. No unusual bruising. Neurologic: No aphasia. No facial droop. No change in mentation. No head injury. No headache. No paralysis. No paresthesia. Psychiatric: No depression. No anxiety. Endocrine: No abnormal blood sugars. No weight change. PHYSICAL EXAMINATION Gen: This is a morbidly obese 80-year-old male. He is resting in his bed with mild respiratory distress. Patient is on HFNC and nonrebreather. HEENT: Head is atraumatic, normocephalic. Pupils equal, round. Sclerae is anicteric. NECK: Supple. No JVD. No lymphadenopathy. No thyromegaly. LUNGS: Clear to auscultation. No wheezes or rhonchi. No intercostal retractions. HEART: Regular rate and rhythm. No murmur. ABDOMEN: Soft. Bowel sounds are present. No masses. No tenderness. EXTREMITIES: No pedal edema. No calf tenderness. NEUROLOGICAL: Patient is awake, alert and oriented x3. Cranial nerves 2 through 12 are grossly intact. ASSESSMENT AND PLAN 1. Acute hypoxic respiratory failure secondary to COVID19 Pneumonia. Continue mechanical ventilation . Patient is on Solu-Medrol 60 mg IV every 6 hours, Lovenox 40 mg daily, albuterol inhaler 2 puffs every 6 hours, vitamins C, vitamin D, zinc. Added Symbicort twice daily, continue current set up of his vent management patient is managed by bobj developer. 2. Possible secondary bacterial gram-negative pneumonia. Patient started on Zosyn 3.375 g IV piggyback every 8 hours. 3. Acute kidney injury with chronic kidney disease stage III. Continue IV fluids 0.9 normal saline. Recheck lab work in the morning. 3. History of coronary artery disease status post CABG, stable. Continue aspirin 81 mg daily, Lipitor 80 mg at bedtime, Lopressor 50 mg twice daily. 4. Diabetes mellitus type 2, uncontrolled with hyperglycemia secondary to steroids. Continue Actos 30 mg daily, NovoLog scale before meals and at bedtime, Levemir 10 units daily added. 5. Hypertension. Continue Lopressor, Norvasc 5 mg daily. 6. Hyperlipidemia. Continue atorvastatin and fenofibrate 7. History of hepatitis C, treated. 8. Obesity with BMI of 37. 9. Generalized osteoarthritis. Tylenol as needed for pain. 10. Hypothyroidism. Continue levothyroxine 75 g daily. 11. GI prophylaxis. Protonix. 12. DVT prophylaxis. Lovenox. Prognosis is guarded. The is fully aware of the very high mortality at this point and should be in contact and regular basis. Objective - Vital Signs Vital signs: Vital Signs Temp 98.4 F 06/30/20 04:00 Pulse 59 L 06/30/20 05:00 Resp 25 H 06/30/20 05:00 BP 115/74 06/30/20 05:00 Pulse Ox 88 L 06/30/20 05:00 Intake & Output 06/29/20 06/29/20 06/30/20 06:59 18:59 06:59 Intake Total 2421.640 1126.656 Output Total 230 945 335 Balance -230 1476.640 791.656 Weight 117.934 kg 124.7 kg Intake: IV 2300 950 Piperacillin-Tazobactam 3 75 125 .375 gm In Sodium Chloride 0.9% 100 ml @ 25 mls/hr IVPB Q8HR [facility] Rx# :[id number] Sodium Chloride 0.9% 1, 225 825 000 ml @ 75 mls/hr IV . [id number] [facility] Rx#:[id number] Sodium Chloride 0.9% 1, 2000 000 ml @ 999 mls/hr IV . Q1H1M ONE Rx#:[id number] Intake, IV Titration 121.640 176.656 Amount Cisatracurium 200 mg In 21.640 76.656 Sodium Chloride 0.9% 180 ml @ 1 MCG/KG/MIN 7.076 mls/hr IV .Q24H [facility] Rx#: [id number] propofoL 1,000 mg In 100.000 100 Empty Bag 1 bag @ Titrate IV .Q0M [facility] Rx#: [id number] Output: Urine 230 945 335 Other: Voiding Method Urinal Indwelling Catheter Indwelling Catheter # Voids 1 ABP, PAP, CO, CI - Last Documented Arterial Blood Pressure 142/67 - Labs CBC & Chem 7: 06/30/20 04:30 06/30/20 04:30 Labs: Abnormal Lab Results - Last 24 Hours (Table) 06/29/20 06/29/20 06/29/20 Range/Units 07:40 08:02 08:02 WBC 11.21 H (4.50-10.00) X 10*3/uL RBC (4.30-5.90) m/uL Hgb (13.0-17.5) gm/dL Hct (39.0-53.0) % Immature Gran # 0.10 H (0.00-0.04) X 10*3/uL Neutrophils # 10.08 H (1.80-7.70) X 10*3/uL Lymphocytes # 0.62 L (0.90-5.00) X 10*3/uL Eosinophils # 0 L (0.04-0.35) X 10*3/uL ABG pH (7.35-7.45) ABG pCO2 (35-45) mmHg ABG pO2 (83-108) mmHg ABG HCO3 (21-25) mmol/L ABG Total CO2 (19-24) mmol/L ABG O2 Saturation (94-97) % BUN 28.0 H (9.0-27.0) mg/dL Creatinine 1.9 H (0.6-1.5) mg/dL Est GFR (CKD-EPI)AfAm 38.0 L (60.0-200.0) Est GFR (CKD-EPI)NonAf 32.8 L (60.0-200.0) Glucose 309 H (70-110) mg/dL POC Glucose (mg/dL) 263 H (75-99) mg/dL AST 38 H (14-35) U/L Lactate Dehydrogenase 327 H (120-246) U/L C-Reactive Protein (<10.0) mg/L Total Protein (6.3-8.2) g/dL Albumin (3.5-5.0) g/dL 06/29/20 06/29/20 06/29/20 Range/Units 12:14 13:03 15:14 WBC (4.50-10.00) X 10*3/uL RBC (4.30-5.90) m/uL Hgb (13.0-17.5) gm/dL Hct (39.0-53.0) % Immature Gran # (0.00-0.04) X 10*3/uL Neutrophils # (1.80-7.70) X 10*3/uL Lymphocytes # (0.90-5.00) X 10*3/uL Eosinophils # (0.04-0.35) X 10*3/uL ABG pH (7.35-7.45) ABG pCO2 (35-45) mmHg ABG pO2 74 L (83-108) mmHg ABG HCO3 27 H (21-25) mmol/L ABG Total CO2 28 H (19-24) mmol/L ABG O2 Saturation (94-97) % BUN (9.0-27.0) mg/dL Creatinine (0.6-1.5) mg/dL Est GFR (CKD-EPI)AfAm (60.0-200.0) Est GFR (CKD-EPI)NonAf (60.0-200.0) Glucose (70-110) mg/dL POC Glucose (mg/dL) 239 H 287 H (75-99) mg/dL AST (14-35) U/L Lactate Dehydrogenase (120-246) U/L C-Reactive Protein (<10.0) mg/L Total Protein (6.3-8.2) g/dL Albumin (3.5-5.0) g/dL 06/29/20 06/30/20 06/30/20 Range/Units 17:32 01:15 04:30 WBC (4.50-10.00) X 10*3/uL RBC (4.30-5.90) m/uL Hgb (13.0-17.5) gm/dL Hct (39.0-53.0) % Immature Gran # (0.00-0.04) X 10*3/uL Neutrophils # (1.80-7.70) X 10*3/uL Lymphocytes # (0.90-5.00) X 10*3/uL Eosinophils # (0.04-0.35) X 10*3/uL ABG pH (7.35-7.45) ABG pCO2 (35-45) mmHg ABG pO2 (83-108) mmHg ABG HCO3 (21-25) mmol/L ABG Total CO2 (19-24) mmol/L ABG O2 Saturation (94-97) % BUN (9.0-27.0) mg/dL Creatinine (0.6-1.5) mg/dL Est GFR (CKD-EPI)AfAm (60.0-200.0) Est GFR (CKD-EPI)NonAf (60.0-200.0) Glucose (70-110) mg/dL POC Glucose (mg/dL) 260 H 270 H (75-99) mg/dL AST (14-35) U/L Lactate Dehydrogenase 748 H (120-246) U/L C-Reactive Protein 144.8 H (<10.0) mg/L Total Protein (6.3-8.2) g/dL Albumin (3.5-5.0) g/dL 06/30/20 06/30/20 06/30/20 Range/Units 04:30 04:30 05:16 WBC 13.0 H (4.50-10.00) X 10*3/uL RBC 4.01 L (4.30-5.90) m/uL Hgb 12.0 L (13.0-17.5) gm/dL Hct 36.1 L (39.0-53.0) % Immature Gran # (0.00-0.04) X 10*3/uL Neutrophils # 11.9 H (1.80-7.70) X 10*3/uL Lymphocytes # 0.5 L (0.90-5.00) X 10*3/uL Eosinophils # (0.04-0.35) X 10*3/uL ABG pH 7.31 L (7.35-7.45) ABG pCO2 51 H (35-45) mmHg ABG pO2 53 L* (83-108) mmHg ABG HCO3 (21-25) mmol/L ABG Total CO2 27 H (19-24) mmol/L ABG O2 Saturation 84.0 L (94-97) % BUN 36 H (9.0-27.0) mg/dL Creatinine 1.58 H (0.6-1.5) mg/dL Est GFR (CKD-EPI)AfAm (60.0-200.0) Est GFR (CKD-EPI)NonAf (60.0-200.0) Glucose 274 H (70-110) mg/dL POC Glucose (mg/dL) (75-99) mg/dL AST (14-35) U/L Lactate Dehydrogenase (120-246) U/L C-Reactive Protein (<10.0) mg/L Total Protein 5.8 L (6.3-8.2) g/dL Albumin 3.2 L (3.5-5.0) g/dL Microbiology - Last 24 Hours (Table) 06/28/20 01:55 Blood Culture - Preliminary Blood No Growth after 48 hours 06/28/20 01:10 Blood Culture - Preliminary Blood No Growth after 48 hours
[2020-07-01 01:04] LABS: Glucose,Whole Blood 222 mg/dL (75-99)
[2020-07-01] MEDS: TOCILIZUMAB 400 MG in SODIUM CHLORIDE 0.9% 80 ML IV SCH (01:06)
[2020-07-01] MEDS: methylPREDNISolone SOD SUCCI 125 MG/2 ML VIAL IV SCH ×4 (01:07→18:03)
[2020-07-01] MEDS: INSULIN ASPART (NovoLOG) 100 UNIT/ML VIAL SQ SCH ×5 (01:08→18:03)
[2020-07-01 05:16] LABS: Basophils % (A) 0 %; Eosinophils % (A) 0 %; HCT 39.3 % (39.0-53.0); Lymphocytes # (A) 0.5 k/uL (1.0-4.8); Lymphocytes % (A) 4 %; MCHC 33.1 g/dL (31.0-37.0); MCV 90.5 fL (80.0-100.0); Monocytes # (A) 0.5 k/uL (0-1.0); Monocytes % (A) 4 %; Neutrophils % (A) 91 %; Platelet Count 235 k/uL (150-450); RBC 4.34 m/uL (4.30-5.90); RDW 14.1 % (11.5-15.5); WBC 13.2 k/uL (3.8-10.6)
[2020-07-01 05:28] LABS: Albumin 2.7 g/dL (3.5-5.0); Calcium 8.3 mg/dL (8.4-10.2); Potassium 4.4 mmol/L (3.5-5.1); Total Bilirubin 0.3 mg/dL (0.2-1.3); Total Protein 5.2 g/dL (6.3-8.2)
[2020-07-01 05:52] LABS: Allen Test Performed? Yes
[2020-07-01 05:53] LABS: ABG Base Excess -2.4 mmol/L; ABG HCO3 24 mmol/L (21-25); ABG PCO2 52 mmHg (35-45); ABG PH 7.28 (7.35-7.45); ABG PO2 107 mmHg (83-108); ABG TCO2 26 mmol/L (19-24)
[2020-07-01] MEDS: LEVOTHYROXINE 75 MCG TAB PO SCH (06:52)
[2020-07-01] MEDS: PANTOPRAZOLE 40 MG TABLET PO SCH (06:52)
[2020-07-01] MEDS: INSULIN DETEMIR (LEVEMIR) 100 UNIT/ML SYR SQ SCH ×2 (06:53→20:01)
--- NOTE | 2020-07-01 07:29 | XR ---
EXAMINATION TYPE: XR chest 1V portable DATE OF EXAM: 07/01/2020 COMPARISON: 06/30/2020 HISTORY: Tube placement TECHNIQUE: Single frontal view of the chest is obtained. FINDINGS: Stable line and tubes. There persistent bilateral opacities in the mid to lower lungs, mil dly increased on the right. No significant pleural effusion, or pneumothorax seen. The cardiac silho uette size is within normal limits. The osseous structures are intact. IMPRESSION: Mild increase of bibasilar opacities.
[2020-07-01] MEDS: SYMBICORT 160-4.5 MCG INHALER INHALATION SCH ×2 (08:53→21:14)
[2020-07-01] MEDS: ALBUTEROL HFA INHALER INHALATION SCH ×4 (08:53→21:14)
[2020-07-01] MEDS: CHLORHEXIDINE GLUCONATE 15 ML CUP MUCOUS MEM SCH ×2 (08:56→20:01)
[2020-07-01] MEDS: METOPROLOL TARTRATE 50 MG TAB PO SCH ×2 (08:56→20:01)
[2020-07-01] MEDS: ZINC SULFATE 220 MG CAP PO SCH (08:56)
[2020-07-01] MEDS: ENOXAPARIN 40 MG/0.4 ML SYRINGE SQ SCH (08:56)
[2020-07-01] MEDS: amLODIPine 5 MG TAB PO SCH (08:56)
[2020-07-01] MEDS: ASCORBIC ACID 500 MG TAB PO SCH (08:56)
[2020-07-01] MEDS: guaiFENesin 600 MG TABLET.ER PO SCH ×2 (08:56→20:00)
[2020-07-01] MEDS: CHOLECALCIFEROL 25 MCG (1000 IU) TABLET PO SCH (08:56)
[2020-07-01] MEDS: MULTIVITAMINS, THERA 1 EACH TAB PO SCH (08:56)
[2020-07-01] MEDS: PIOGLITAZONE 30 MG TAB PO SCH (08:57)
[2020-07-01] MEDS: FENOFIBRATE 160 MG TAB PO SCH (08:57)
[2020-07-01] MEDS: SODIUM CHLORIDE 0.9% 1,000 ML IV SCH ×2 (09:25→16:10)
--- NOTE | 2020-07-01 10:11 | P.PN ---
Subjective Progress Note Date: 07/01/20 HISTORY OF PRESENT ILLNESS This is a 80-year-old male patient of Dr. 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 Patient states that he has had symptoms for 2 weeks which include body aches, shortness of breath coming foggy thinking. He denies any nausea, vomiting or diarrhea. He states he has had sputum production. He denies any lower extremity edema. Patient does not have home oxygen. Patient presented to [facility] emergency center for evaluation. Chest x-ray reveals bibasilar patchy opacities consistent with multifocal infection. No pleural effusions or pneumothorax. Temperature 100.1, heart rate 75, respiratory rate 24, blood pressure 125/63 and pulse ox 83% on room air. EKG was a sinus rhythm at 66 bpm. CBC was unremarkable except for lymphocytosis of 0.5. INR 1.0. Sodium 135, BUN 28 creatinine 1.68. Blood sugar 202. Lactic acid 1.6. Liver function tests were normal. LDH 730. C- reactive protein and a 5.9. ProBNP 522. 4/2: Patient is seen today on the observation unit as an overflow. Pulse ox is 84% on 15 L hyponasal cannula and nonrebreather. Patient seems to have more shortness of breath today and also complains of wheezing. No significant cough production. No fever or chills. No chest pain. WBC 11.2, hemoglobin 14.8, platelet count 233. Repeat chest x-ray reveals findings consistent with pneumonia. Pro-calcitonin 0.12. Blood sugars running in the 200s. Patient to be moved to the intensive care unit. 06/30: Patient declined significantly in the afternoon yesterday ended up on mechanical ventilation, he been sedated currently his marker are still quite bit high. Patient still required high demand O2 along with high PEEP of 15-20 to keep his pulse ox at the margin of 90 percentile. His blood sugars mildly elevated and still been managed on insulin, white blood cell is up to 13,000 today, his blood gas shows pO2 of 653 only. CO2 of 27 and pH of 7.31 creatinine has slightly improved since yesterday he C-reactive protein is up to 144 and LDH of 748. 4/4: Patient is still on mechanical ventilation is FiO2 is down to 70% still on PEEP of 18 I had long discussion with the and update her on with outpatient patient's condition still guarded this point his prognosis still not good but he has slight improvement compared to yesterday, his kidney function has improved slightly bit compared to yesterday as well. REVIEW OF SYSTEMS Constitutional: Reports fever, Reports chills, no night sweats. No weight change. Reports weakness, Reports fatigue Reports lethargy. Reports daytime sleepiness. EENT: No headache. No blurred vision or double vision, no loss of vision. No loss of Hearing, no ringing in the ears, no dizziness. No nasal drainage or congestion. No epistaxis. No sore throat. Lungs: Reports worsening shortness of breath, Reports cough, denies sputum production. Reports wheezing. Cardiovascular: No chest pain, no lower extremity edema. No palpitations. No paroxysmal nocturnal dyspnea. No orthopnea. No lightheadedness or dizziness. No syncopal episodes. Abdominal: No abdominal pain. No nausea, vomiting. No diarrhea. No constipation. No bloody or tarry stools.. No loss of appetite. Genitourinary: No dysuria, increased frequency, urgency. No urinary retention. Musculoskeletal: Reports myalgias. Reports muscle weakness, no gait dysfunction, no frequent falls. No back pain. No neck pain. Integumentary: No wounds, no lesions. No rash or pruritus. No unusual br uising. Neurologic: No aphasia. No facial droop. No change in mentation. No head injury. No headache. No paralysis. No paresthesia. Psychiatric: No depression. No anxiety. Endocrine: No abnormal blood sugars. No weight change. PHYSICAL EXAMINATION Gen: This is a morbidly obese 80-year-old male. He is resting in his bed with mild respiratory distress. Patient is on HFNC and nonrebreather. HEENT: Head is atraumatic, normocephalic. Pupils equal, round. Sclerae is anicteric. NECK: Supple. No JVD. No lymphadenopathy. No thyromegaly. LUNGS: Clear to auscultation. No wheezes or rhonchi. No intercostal retractions. HEART: Regular rate and rhythm. No murmur. ABDOMEN: Soft. Bowel sounds are present. No masses. No tenderness. EXTREMITIES: No pedal edema. No calf tenderness. NEUROLOGICAL: Patient is awake, alert and oriented x3. Cranial nerves 2 through 12 are grossly intact. ASSESSMENT AND PLAN 1. Acute hypoxic respiratory failure secondary to COVID19 Pneumonia. Continue mechanical ventilation . Patient is on Solu-Medrol 60 mg IV every 6 hours, Lovenox 40 mg daily, albuterol inhaler 2 puffs every 6 hours, vitamins C, vitamin D, zinc. Added Symbicort twice daily, continue current set up of his vent management patient is managed by guest service agent. 2. Possible secondary bacterial gram-negative pneumonia. Patient started on Zosyn 3.375 g IV piggyback every 8 hours. 3. Acute kidney injury with chronic kidney disease stage III. Continue IV fluids 0.9 normal saline. Recheck lab work in the morning. Creatinine is down to 1.59 with slight improvement. 3. History of coronary artery disease status post CABG, stable. Continue aspirin 81 mg daily, Lipitor 80 mg at bedtime, Lopressor 50 mg twice daily. 4. Diabetes mellitus type 2, uncontrolled with hyperglycemia secondary to steroids. Continue Actos 30 mg daily, NovoLog scale before meals and at bedtime, Levemir 10 units daily added. His blood sugar is less than 200. 5. Hypertension. Continue Lopressor, Norvasc 5 mg daily. 6. Hyperlipidemia. Continue atorvastatin and fenofibrate 7. Hypothyroidism. Continue levothyroxine 75 g daily. 8. GI prophylaxis. Protonix. 9. DVT prophylaxis. Lovenox. Prognosis is guarded. The is fully aware of the very high mortality at this point and should be in contact and regular basis. Objective - Vital Signs Vital signs: Vital Signs Temp 97.8 F 07/01/20 00:00 Pulse 49 L 07/01/20 03:00 Resp 16 07/01/20 03:00 BP 100/67 06/30/20 23:47 Pulse Ox 91 L 07/01/20 03:00 Intake & Output 06/30/20 06/30/20 07/01/20 06:59 18:59 06:59 Intake Total 8366.785 1219.028 976.242 Output Total 365 475 360 Balance 936.656 983.028 616.242 Weight 124.7 kg 124.7 kg 124 kg Intake: IV 1025 1025 825 Piperacillin-Tazobactam 3 125 125 .375 gm In Sodium Chloride 0.9% 100 ml @ 25 mls/hr IVPB Q8HR [facility] Rx# :[id number] Sodium Chloride 0.9% 1, 900 900 825 000 ml @ 75 mls/hr IV . [id number] [facility] Rx#:[id number] Intake, IV Titration 276.656 333.028 151.242 Amount Cisatracurium 200 mg In 76.656 48.588 51.242 Sodium Chloride 0.9% 180 ml @ 1 MCG/KG/MIN 7.076 mls/hr IV .Q24H [facility] Rx#: [id number] propofoL 1,000 mg In 200 284.44 100 Empty Bag 1 bag @ Titrate IV .Q0M [facility] Rx#: [id number] Oral 100 Output: Urine 365 475 360 Other: Voiding Method Indwelling Catheter Indwelling Catheter Indwelling Catheter ABP, PAP, CO, CI - Last Documented Arterial Blood Pressure 122/61 - Labs CBC & Chem 7: 07/01/20 04:45 07/01/20 04:45 Labs: Abnormal Lab Results - Last 24 Hours (Table) 06/30/20 06/30/20 06/30/20 Range/Units 06:18 07:02 11:44 WBC (3.8-10.6) k/uL Neutrophils # (1.3-7.7) k/uL Lymphocytes # (1.0-4.8) k/uL ABG pH (7.35-7.45) ABG pCO2 (35-45) mmHg ABG Total CO2 (19-24) mmol/L Chloride (98-107) mmol/L BUN (9-20) mg/dL Creatinine (0.66-1.25) mg/dL Glucose (74-99) mg/dL POC Glucose (mg/dL) 240 H 221 H 207 H (75-99) mg/dL Calcium (8.4-10.2) mg/dL C-Reactive Protein (<10.0) mg/L Total Protein (6.3-8.2) g/dL Albumin (3.5-5.0) g/dL 06/30/20 06/30/20 07/01/20 Range/Units 18:36 20:50 01:03 WBC (3.8-10.6) k/uL Neutrophils # (1.3-7.7) k/uL Lymphocytes # (1.0-4.8) k/uL ABG pH (7.35-7.45) ABG pCO2 (35-45) mmHg ABG Total CO2 (19-24) mmol/L Chloride (98-107) mmol/L BUN (9-20) mg/dL Creatinine (0.66-1.25) mg/dL Glucose (74-99) mg/dL POC Glucose (mg/dL) 241 H 233 H 222 H (75-99) mg/dL Calcium (8.4-10.2) mg/dL C-Reactive Protein (<10.0) mg/L Total Protein (6.3-8.2) g/dL Albumin (3.5-5.0) g/dL 07/01/20 07/01/20 07/01/20 Range/Units 04:45 04:45 04:45 WBC 13.2 H (3.8-10.6) k/uL Neutrophils # 12.0 H (1.3-7.7) k/uL Lymphocytes # 0.5 L (1.0-4.8) k/uL ABG pH (7.35-7.45) ABG pCO2 (35-45) mmHg ABG Total CO2 (19-24) mmol/L Chloride 110 H (98-107) mmol/L BUN 43 H (9-20) mg/dL Creatinine 1.54 H (0.66-1.25) mg/dL Glucose 218 H (74-99) mg/dL POC Glucose (mg/dL) (75-99) mg/dL Calcium 8.3 L (8.4-10.2) mg/dL C-Reactive Protein 74.9 H (<10.0) mg/L Total Protein 5.2 L (6.3-8.2) g/dL Albumin 2.7 L (3.5-5.0) g/dL 07/01/20 Range/Units 05:39 WBC (3.8-10.6) k/uL Neutrophils # (1.3-7.7) k/uL Lymphocytes # (1.0-4.8) k/uL ABG pH 7.28 L (7.35-7.45) ABG pCO2 52 H (35-45) mmHg ABG Total CO2 26 H (19-24) mmol/L Chloride (98-107) mmol/L BUN (9-20) mg/dL Creatinine (0.66-1.25) mg/dL Glucose (74-99) mg/dL POC Glucose (mg/dL) (75-99) mg/dL Calcium (8.4-10.2) mg/dL C-Reactive Protein (<10.0) mg/L Total Protein (6.3-8.2) g/dL Albumin (3.5-5.0) g/dL Microbiology - Last 24 Hours (Table) 06/28/20 01:55 Blood Culture - Preliminary Blood No Growth after 72 hours 06/28/20 01:10 Blood Culture - Preliminary Blood No Growth after 72 hours
[2020-07-01] MEDS: fentaNYL (PF) 1,000 MCG in SODIUM CHLORIDE 0.9% 80 ML IV SCH (10:58)
[2020-07-01 12:23] LABS: Glucose,Whole Blood 241 mg/dL (75-99)
--- NOTE | 2020-07-01 12:39 | P.PN ---
Subjective Progress Note Date: 07/01/20 Principal diagnosis: Acute hypoxic respiratory failure secondary to acute 19 pneumonia 80-year-old male, seen in the emergency department, on June 27. The patient came in complaining of weakness, fatigue, shortness of breath, chest congestion, and nonproductive cough. He's been sick for at least 2 weeks. He tells me he tested positive on Thursday but he actually may have tested positive on June 17. Currently, the patient's on 6 L nasal cannula. He is not receiving any IV fluids. He has a history of asthma, coronary artery disease, chest pain, angina, diabetes mellitus, hypertension, hyperlipidemia, osteoarthritis, pneumonia, hepatitis C, bursitis, and previous bypass grafting. The patient denies ever smoking cigarettes. Current lab data includes a white count 6.4, hematocrit 43.4, hemoglobin 14.7, and a platelet count of 186,000. PT, INR and PTT are normal. Sodium 135, potassium 4.3, chlorides 100, CO2 25, anion gap 10, BUN 28, creatinine 1.68. LDH is 730, C-reactive protein is 85.9. A d-dimer was not done. N-terminal proBNP was 522. A chest x-ray done in the emergency department shows bilateral patchy infiltrates, consistent with coronavirus pneu monia. Patient was reevaluated today on 06/30/2020, remains in the ICU, intubated and mechanically ventilated. Patient had an earlier ABG on PEEP of 15, assist control rate 24th, volume 450 FiO2 of 100, and it showed a pO2 of 53 pCO2 of 51 pH of 7.31, hence I increased the PEEP from 15 to 18. Repeat ABG is pending. Patient remains on propofol at 40 mcg/kg/m, Nimbex at 0.75, fentanyl at 0.25, and he is on enteral feeding. Patient received : 19 cocktail, and today we are adding TOCI/ACTEMRA. Chest x-ray continues to show bilateral interstitial opacities/interstitial infiltrates. Electrolytes are normal BUN is 36 creatinine is 1.58 LDH is 748 C-reactive protein is 144.8 WBC count is 13.0 h emoglobin is 12. D-dimer is 0.19. The patient is seen today 07/01/2020 in follow-up in the intensive care unit. He remains intubated on mechanical ventilator. Current settings and assist- control mode with a rate of 24, tidal volume 450, FiO2 90% and a PEEP of 18. Arterial blood gases reveal a P O2 of 107, pCO2 52, pH 7.28. Chest x-ray showed a mild increase in the persistent bilateral opacities in the mid to lower lungs bilaterally. White count 13.2. Hemoglobin 13.0. Lymphocytes 0.5. D-dimer 0.44. Sodium 139. Potassium 4.4. Creatinine 1.54. C-reactive protein 74.9. He remains on Nimbex at 0.5 mcg/kg/m, fentanyl at 0.25 mcg/kg per hour, propofol at 40 mcg/kg/m. He remains on vitamin supplements, Lovenox, IV Solu-Medrol. He did receive Tocilizumab and 1 unit of convalescent plasma. Objective - Vital Signs Vital signs: Vital Signs Temp 97.7 F 07/01/20 12:18 Pulse 44 L 07/01/20 12:18 Resp 28 H 07/01/20 12:18 BP 130/64 07/01/20 12:18 Pulse Ox 93 L 07/01/20 12:18 Intake & Output 06/30/20 07/01/20 07/01/20 18:59 06:59 18:59 Intake Total 5941.854 0191.242 661.631 Output Total 475 390 415 Balance 983.028 761.242 246.631 Weight 124.7 kg 124 kg Intake: IV 1025 900 375 Piperacillin-Tazobactam 3 125 .375 gm In Sodium Chloride 0.9% 100 ml @ 25 mls/hr IVPB Q8HR [facility] Rx# :[id number] Sodium Chloride 0.9% 1, 900 900 375 000 ml @ 75 mls/hr IV . [id number] [facility] Rx#:[id number] Intake, IV Titration 333.028 251.242 186.631 Amount Cisatracurium 200 mg In 48.588 51.242 37.503 Sodium Chloride 0.9% 180 ml @ 1 MCG/KG/MIN 7.076 mls/hr IV .Q24H [facility] Rx#: [id number] fentaNYL (PF) 1,000 mcg 74.728 In Sodium Chloride 0.9% 80 ml @ Per Protocol IV . Q0M [facility] Rx#:[id number] propofoL 1,000 mg In 284.44 200 74.4 Empty Bag 1 bag @ Titrate IV .Q0M [facility] Rx#: [id number] Oral 100 Tube Feeding 40 Blood Product 0 Ffp Convalescent Plasma 0 Cpd Unit [id number] Other 60 Output: Urine 475 390 415 Other: Voiding Method Indwelling Catheter Indwelling Catheter Indwelling Catheter ABP, PAP, CO, CI - Last Documented Arterial Blood Pressure 152/69 - Exam GENERAL EXAM: Intubated, sedated, paralyzed 80-year-old gentleman, on the mechanical ventilator, comfortable in no apparent distress. HEAD: Normocephalic. EYES: Normal reaction of pupils, equal size. NOSE: Clear with pink turbinates. THROAT: No erythema or exudates. NECK: No masses, no JVD. CHEST: No chest wall deformity. LUNGS: Equal air entry with crackles in the bilateral posterior bases. CVS: S1 and S2 normal with no audible murmur, regular rhythm. ABDOMEN: No hepatosplenomegaly, normal bowel sounds, no guarding or rigidity. SPINE: No scoliosis or deformity SKIN: No rashes CENTRAL NERVOUS SYSTEM: Sedated, paralyzed, tone is normal in all 4 extremities. EXTREMITIES: There is no peripheral edema. No clubbing, no cyanosis. Peripheral pulses are intact. - Labs CBC & Chem 7: 07/01/20 04:45 07/01/20 04:45 Labs: Abnormal Lab Results - Last 24 Hours (Table) 06/30/20 06/30/20 07/01/20 Range/Units 18:36 20:50 01:03 WBC (3.8-10.6) k/uL Neutrophils # (1.3-7.7) k/uL Lymphocytes # (1.0-4.8) k/uL ABG pH (7.35-7.45) ABG pCO2 (35-45) mmHg ABG Total CO2 (19-24) mmol/L Chloride (98-107) mmol/L BUN (9-20) mg/dL Creatinine (0.66-1.25) mg/dL Glucose (74-99) mg/dL POC Glucose (mg/dL) 241 H 233 H 222 H (75-99) mg/dL Calcium (8.4-10.2) mg/dL Magnesium (1.6-2.3) mg/dL C-Reactive Protein (<10.0) mg/L Total Protein (6.3-8.2) g/dL Albumin (3.5-5.0) g/dL 07/01/20 07/01/20 07/01/20 Range/Units 04:45 04:45 04:45 WBC 13.2 H (3.8-10.6) k/uL Neutrophils # 12.0 H (1.3-7.7) k/uL Lymphocytes # 0.5 L (1.0-4.8) k/uL ABG pH (7.35-7.45) ABG pCO2 (35-45) mmHg ABG Total CO2 (19-24) mmol/L Chloride 110 H (98-107) mmol/L BUN 43 H (9-20) mg/dL Creatinine 1.54 H (0.66-1.25) mg/dL Glucose 218 H (74-99) mg/dL POC Glucose (mg/dL) (75-99) mg/dL Calcium 8.3 L (8.4-10.2) mg/dL Magnesium (1.6-2.3) mg/dL C-Reactive Protein 74.9 H (<10.0) mg/L Total Protein 5.2 L (6.3-8.2) g/dL Albumin 2.7 L (3.5-5.0) g/dL 07/01/20 07/01/20 07/01/20 Range/Units 05:39 06:00 12:21 WBC (3.8-10.6) k/uL Neutrophils # (1.3-7.7) k/uL Lymphocytes # (1.0-4.8) k/uL ABG pH 7.28 L (7.35-7.45) ABG pCO2 52 H (35-45) mmHg ABG Total CO2 26 H (19-24) mmol/L Chloride (98-107) mmol/L BUN (9-20) mg/dL Creatinine (0.66-1.25) mg/dL Glucose (74-99) mg/dL POC Glucose (mg/dL) 241 H (75-99) mg/dL Calcium (8.4-10.2) mg/dL Magnesium 2.4 H (1.6-2.3) mg/dL C-Reactive Protein (<10.0) mg/L Total Protein (6.3-8.2) g/dL Albumin (3.5-5.0) g/dL Microbiology - Last 24 Hours (Table) 06/28/20 01:55 Blood Culture - Preliminary Blood No Growth after 72 hours 06/28/20 01:10 Blood Culture - Preliminary Blood No Growth after 72 hours Assessment and Plan Assessment: 1 Acute hypoxemic respiratory failure requiring intubation mechanical ventilatory support on 06/29/2020 secondary to CoVID19 pneumonia. Received Tocilizumab and convalescent plasma 2 Coronary artery disease with previous coronary artery bypass grafting 3 History of mild intermittent mask of 4 Diabetes mellitus 5 History of hepatitis C 6 History of hypertension 7 Hypothyroidism 8 Degenerative joint disease Plan: The patient was seen and evaluated by Dr. Collins Chest x-ray, ABGs and labs reviewed We did increase the rate to 28, decrease the FiO2 to 70% Received tocilizumab and convalescent plasma Continue the current treatment plan Prognosis is guarded We will continue to follow and make further recommendations based on his clinical status Critical care time 38 minutes I, the cosigning physician, performed a history & physical examination of the patient. Lungs sounds with bilateral crackles in the bases. Maintaining good O2 saturations in the 90s on 70% FiO2. I discussed the assessment and plan of care with my nurse practitioner, Senait Lomeli. I attest to the above note as dictated by her.
[2020-07-01] MEDS: CISATRACURIUM 200 MG in SODIUM CHLORIDE 0.9% 180 ML IV SCH (15:25)
[2020-07-01 17:33] LABS: Glucose,Whole Blood 248 mg/dL (75-99)
[2020-07-01] MEDS: ATORVASTATIN 80 MG TAB PO SCH (20:00)
[2020-07-01] MEDS: ASPIRIN 81 MG PO SCH (20:01)
[2020-07-01] MEDS: allopurinoL 300 MG TAB PO SCH (20:03)
[2020-07-01 23:34] LABS: Glucose,Whole Blood 197 mg/dL (75-99)
[2020-07-02] MEDS: INSULIN ASPART (NovoLOG) 100 UNIT/ML VIAL SQ SCH ×10 (00:13→23:37)
[2020-07-02] MEDS: methylPREDNISolone SOD SUCCI 125 MG/2 ML VIAL IV SCH ×5 (00:14→23:38)
[2020-07-02 05:01] LABS: HCT 38.8 % (39.0-53.0); HGB 13.1 gm/dL (13.0-17.5); MCH 30.4 pg (25.0-35.0); MCHC 33.8 g/dL (31.0-37.0); MCV 89.8 fL (80.0-100.0); Platelet Count 266 k/uL (150-450); RBC 4.32 m/uL (4.30-5.90); WBC 12.4 k/uL (3.8-10.6)
[2020-07-02 05:15] LABS: Albumin 2.9 g/dL (3.5-5.0); Calcium 8.6 mg/dL (8.4-10.2); Potassium 4.7 mmol/L (3.5-5.1); Total Bilirubin 0.3 mg/dL (0.2-1.3); Total Protein 5.5 g/dL (6.3-8.2)
[2020-07-02 06:13] LABS: ABG Base Excess -1.6 mmol/L; ABG HCO3 25 mmol/L (21-25); ABG PCO2 49 mmHg (35-45); ABG PH 7.31 (7.35-7.45); ABG PO2 121 mmHg (83-108); ABG TCO2 26 mmol/L (19-24); Allen Test Performed? Yes
[2020-07-02] MEDS: PANTOPRAZOLE 40 MG TABLET PO SCH (06:23)
[2020-07-02] MEDS: LEVOTHYROXINE 75 MCG TAB PO SCH (06:23)
[2020-07-02 07:45] LABS: Erythrocyte Sedimentation Rate 33 mm/hr (0-15)
[2020-07-02] MEDS: ZINC SULFATE 220 MG CAP PO SCH (08:09)
[2020-07-02] MEDS: PIOGLITAZONE 30 MG TAB PO SCH (08:09)
[2020-07-02] MEDS: FENOFIBRATE 160 MG TAB PO SCH (08:09)
[2020-07-02] MEDS: ASCORBIC ACID 500 MG TAB PO SCH (08:09)
[2020-07-02] MEDS: MULTIVITAMINS, THERA 1 EACH TAB PO SCH (08:09)
[2020-07-02] MEDS: METOPROLOL TARTRATE 50 MG TAB PO SCH ×2 (08:09→20:12)
[2020-07-02] MEDS: CHOLECALCIFEROL 25 MCG (1000 IU) TABLET PO SCH (08:09)
[2020-07-02] MEDS: guaiFENesin 600 MG TABLET.ER PO SCH ×2 (08:09→20:12)
[2020-07-02] MEDS: amLODIPine 5 MG TAB PO SCH (08:10)
[2020-07-02] MEDS: CHLORHEXIDINE GLUCONATE 15 ML CUP MUCOUS MEM SCH ×2 (08:10→20:12)
[2020-07-02] MEDS: ENOXAPARIN 40 MG/0.4 ML SYRINGE SQ SCH (08:10)
[2020-07-02] MEDS: ALBUTEROL HFA INHALER INHALATION SCH ×4 (08:30→20:59)
[2020-07-02] MEDS: INSULIN DETEMIR (LEVEMIR) 100 UNIT/ML SYR SQ SCH ×2 (08:51→21:30)
[2020-07-02] MEDS: SYMBICORT 160-4.5 MCG INHALER INHALATION SCH ×2 (09:28→20:59)
--- NOTE | 2020-07-02 09:53 | XR ---
EXAMINATION TYPE: XR abdomen 1V DATE OF EXAM: 07/02/2020 COMPARISON: 01/18/2019 HISTORY: NG tube placement TECHNIQUE: One view abdominal series FINDINGS: Limited view of portions of the abdomen demonstrate hypertrophic and degenerative change of the spine and findings suggestive of sacroiliitis. NG tube is seen overlying the upper abdomen likely within t he gastric body. Overall bowel gas pattern nonspecific. IMPRESSION: 1. NG tube overlying the upper abdomen likely within the gastric body
--- NOTE | 2020-07-02 10:02 | XR ---
EXAMINATION TYPE: XR chest 1V portable DATE OF EXAM: 07/02/2020 COMPARISON: 07/01/2020 HISTORY: Tube placement TECHNIQUE: Single frontal view of the chest is obtained. FINDINGS: ET and NG tube and central line stable. Postsurgical changes noted with diffuse interstiti al pattern bilateral infiltrate and small effusion. No pneumothorax. IMPRESSION: Diffuse pleural-parenchymal changes stable correlate for interstitial pneumonia.
[2020-07-02 11:27] LABS: Ferritin 629.9 ng/mL (22.0-322.0)
--- NOTE | 2020-07-02 11:45 | P.PN ---
Subjective Progress Note Date: 07/02/20 HISTORY OF PRESENT ILLNESS This is a 80-year-old male patient of Dr. 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 Patient states that he has had symptoms for 2 weeks which include body aches, shortness of breath coming foggy thinking. He denies any nausea, vomiting or diarrhea. He states he has had sputum production. He denies any lower extremity edema. Patient does not have home oxygen. Patient presented to [facility] emergency [facility] for evaluation. Chest x-ray reveals bibasilar patchy opacities consistent with multifocal infection. No pleural effusions or pneumothorax. Temperature 100.1, heart rate 75, respiratory rate 24, blood pressure 125/63 and pulse ox 83% on room air. EKG was a sinus rhythm at 66 bpm. CBC was unremarkable except for lymphocytosis of 0.5. INR 1.0. Sodium 135, BUN 28 creatinine 1.68. Blood sugar 202. Lactic acid 1.6. Liver function tests were normal. LDH 730. C- reactive protein and a 5.9. ProBNP 522. 4/2: Patient is seen today on the observation unit as an overflow. Pulse ox is 84% on 15 L hyponasal cannula and nonrebreather. Patient seems to have more shortness of breath today and also complains of wheezing. No significant cough production. No fever or chills. No chest pain. WBC 11.2, hemoglobin 14.8, platelet count 233. Repeat chest x-ray reveals findings consistent with pneumonia. Pro-calcitonin 0.12. Blood sugars running in the 200s. Patient to be moved to the intensive care unit. 06/30: Patient declined significantly in the afternoon yesterday ended up on mechanical ventilation, he been sedated currently his marker are still quite bit high. Patient still required high demand O2 along with high PEEP of 15-20 to keep his pulse ox at the margin of 90 percentile. His blood sugars mildly elevated and still been managed on insulin, white blood cell is up to 13,000 today, his blood gas shows pO2 of 653 only. CO2 of 27 and pH of 7.31 creatinine has slightly improved since yesterday he C-reactive protein is up to 144 and LDH of 748. 4/4: Patient is still on mechanical ventilation is FiO2 is down to 70% still on PEEP of 18 I had long discussion with the and update her on with outpatient patient's condition still guarded this point his prognosis still not good but he has slight improvement compared to yesterday, his kidney function has improved slightly bit compared to yesterday as well. 07/02: Patient remains in the ICU. Patient is intubated and on mechanical ventilation with tidall volume 450,, FiO2 60%, PEEP of 18 which is improved from yesterday. He is pulse oxing 92-95%. He has been afebrile, heart rate in the 40s, respiratory rate 28, blood pressure 148/67. 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 Repeat lab work reveals WBC 12.4, hemoglobin 13.1, platelet count 266. Sed rate 33. D-dimer 0.45. Sodium 140, potassium 4.7, chloride 110, CO2 24, BUN 44 and creatinine 0.25. Blood sugars running between 197 and 248. Ferritin 629.9. LDH 704. He is currently nothing by mouth. REVIEW OF SYSTEMS Unable to obtain due to intubation, mechanical ventilation and sedation. PHYSICAL EXAMINATION Gen: This is a morbidly obese 80-year-old male. He is resting in ICU bed intubated and on mechanical ventilation, patient appears to be comfortable. HEENT: Head is atraumatic, normocephalic. Pupils equal, round. Sclerae is anicteric. NECK: Supple. No JVD. No lymphadenopathy. No thyromegaly. LUNGS: Clear to auscultation. No wheezes or rhonchi. No intercostal retractions. HEART: Regular rate and rhythm. No murmur. ABDOMEN: Soft. Bowel sounds are present. No masses. No tenderness. Tyler catheter draining clear yannick urine. EXTREMITIES: No pedal edema. No calf tenderness. NEUROLOGICAL: Patient is unresponsive, sedated. ASSESSMENT AND PLAN 1. Acute hypoxic respiratory failure secondary to COVID19 Pneumonia. Continue mechanical ventilation. 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 2. Possible secondary bacterial gram-negative pneumonia. Patient started on Zosyn 3.375 g IV piggyback every 8 hours. 3. Acute kidney injury with chronic kidney disease stage III. Continue IV fluids 0.9 normal saline. Recheck lab work in the morning. Creatinine is down to 1.59 with slight improvement. 3. History of coronary artery disease status post CABG, stable. Continue aspirin 81 mg daily, Lipitor 80 mg at bedtime, Lopressor 50 mg twice daily. 4. Diabetes mellitus type 2, uncontrolled with hyperglycemia secondary to steroids. Continue Actos 30 mg daily, NovoLog scale before meals and at bedtime, Levemir 10 units daily added. His blood sugar is less than 200. 5. Hypertension. Continue Lopressor, Norvasc 5 mg daily. 6. Hyperlipidemia. Continue atorvastatin and fenofibrate 7. Hypothyroidism. Continue levothyroxine 75 g daily. 8. GI prophylaxis. Protonix. 9. DVT prophylaxis. Lovenox. Prognosis is guarded. The is fully aware of the very high mortality at this point and should be in contact and regular basis. Impression and plan of care have been directed as dictated by the signing physician. Mihaela Roberts nurse practitioner acting as scribe for signing minh robins. Objective - Vital Signs Vital signs: Vital Signs Temp 97.7 F 07/02/20 08:00 Pulse 47 L 07/02/20 08:00 Resp 28 H 07/02/20 08:00 BP 146/80 07/02/20 08:00 Pulse Ox 94 L 07/02/20 08:00 Intake & Output 07/01/20 07/02/20 07/02/20 18:59 06:59 18:59 Intake Total 8399.119 4986 195 Output Total 720 440 100 Balance 1111.954 655 95 Weight 126.1 kg Intake: IV 900 975 75 Sodium Chloride 0.9% 1, 900 975 75 000 ml @ 75 mls/hr IV . [id number] [facility] Rx#:[id number] Intake, IV Titration 404.954 100 Amount Cisatracurium 200 mg In 61.090 Sodium Chloride 0.9% 180 ml @ 1 MCG/KG/MIN 7.076 mls/hr IV .Q24H [facility] Rx#: [id number] fentaNYL (PF) 1,000 mcg 74.728 In Sodium Chloride 0.9% 80 ml @ Per Protocol IV . Q0M [facility] Rx#:[id number] propofoL 1,000 mg In 269.136 100 Empty Bag 1 bag @ Titrate IV .Q0M [facility] Rx#: [id number] Tube Feeding 110 20 30 Blood Product 297 Ffp Convalescent Plasma 297 Cpd Unit [id number] Other 120 90 Output: Urine 720 440 100 Other: Voiding Method Indwelling Catheter Indwelling Catheter ABP, PAP, CO, CI - Last Documented Arterial Blood Pressure 124/64 - Labs CBC & Chem 7: 07/02/20 04:00 07/02/20 04:00 Labs: Abnormal Lab Results - Last 24 Hours (Table) 07/01/20 07/01/20 07/01/20 Range/Units 06:00 12:21 17:31 WBC (3.8-10.6) k/uL Hct (39.0-53.0) % ESR (0-15) mm/hr ABG pH (7.35-7.45) ABG pCO2 (35-45) mmHg ABG pO2 (83-108) mmHg ABG Total CO2 (19-24) mmol/L ABG O2 Saturation (94-97) % Chloride (98-107) mmol/L BUN (9-20) mg/dL Glucose (74-99) mg/dL POC Glucose (mg/dL) 241 H 248 H (75-99) mg/dL Magnesium 2.4 H (1.6-2.3) mg/dL Lactate Dehydrogenase (313-618) U/L Total Protein (6.3-8.2) g/dL Albumin (3.5-5.0) g/dL 07/01/20 07/02/20 07/02/20 Range/Units 23:32 04:00 04:00 WBC 12.4 H (3.8-10.6) k/uL Hct 38.8 L (39.0-53.0) % ESR 33 H (0-15) mm/hr ABG pH (7.35-7.45) ABG pCO2 (35-45) mmHg ABG pO2 (83-108) mmHg ABG Total CO2 (19-24) mmol/L ABG O2 Saturation (94-97) % Chloride 110 H (98-107) mmol/L BUN 44 H (9-20) mg/dL Glucose 202 H (74-99) mg/dL POC Glucose (mg/dL) 197 H (75-99) mg/dL Magnesium (1.6-2.3) mg/dL Lactate Dehydrogenase 704 H (313-618) U/L Total Protein 5.5 L (6.3-8.2) g/dL Albumin 2.9 L (3.5-5.0) g/dL 07/02/20 Range/Units 05:55 WBC (3.8-10.6) k/uL Hct (39.0-53.0) % ESR (0-15) mm/hr ABG pH 7.31 L (7.35-7.45) ABG pCO2 49 H (35-45) mmHg ABG pO2 121 H (83-108) mmHg ABG Total CO2 26 H (19-24) mmol/L ABG O2 Saturation 99.0 H (94-97) % Chloride (98-107) mmol/L BUN (9-20) mg/dL Glucose (74-99) mg/dL POC Glucose (mg/dL) (75-99) mg/dL Magnesium (1.6-2.3) mg/dL Lactate Dehydrogenase (313-618) U/L Total Protein (6.3-8.2) g/dL Albumin (3.5-5.0) g/dL Microbiology - Last 24 Hours (Table) 06/28/20 01:55 Blood Culture - Preliminary Blood No Growth after 96 hours 06/28/20 01:10 Blood Culture - Preliminary Blood No Growth after 96 hours
[2020-07-02] MEDS: CISATRACURIUM 200 MG in SODIUM CHLORIDE 0.9% 180 ML IV SCH (12:24)
[2020-07-02] MEDS: SODIUM CHLORIDE 0.9% 1,000 ML IV SCH (12:24)
[2020-07-02 12:27] LABS: Glucose,Whole Blood 232 mg/dL (75-99)
[2020-07-02] MEDS: fentaNYL (PF) 1,000 MCG in SODIUM CHLORIDE 0.9% 80 ML IV SCH ×2 (12:32→15:37)
--- NOTE | 2020-07-02 13:40 | P.PN ---
Subjective Progress Note Date: 07/02/20 Principal diagnosis: Shortness of breath, cough. 80-year-old male, seen in the emergency department, on June 27. The patient came in complaining of weakness, fatigue, shortness of breath, chest congestion, and nonproductive cough. He's been sick for at least 2 weeks. He tells me he tested positive on Thursday but he actually may have tested positive on June 17. Currently, the patient's on 6 L nasal cannula. He is not receiving any IV fluids. He has a history of asthma, coronary artery disease, chest pain, angina, diabetes mellitus, hypertension, hyperlipidemia, osteoarthritis, pneumonia, hepatitis C, bursitis, and previous bypass grafting. The patient denies ever smoking cigarettes. Current lab data includes a white count 6.4, hematocrit 43.4, hemoglobin 14.7, and a platelet count of 186,000. PT, INR and PTT are normal. Sodium 135, potassium 4.3, chlorides 100, CO2 25, anion gap 10, BUN 28, creatinine 1.68. LDH is 730, C-reactive protein is 85.9. A d-dimer was not done. N-terminal proBNP was 522. A chest x-ray done in the emergency department shows bilateral patchy infiltrates, consistent with coronavirus pneumonia. Progress note dated 06/29/2020. This is a 80-year-old patient who I saw yesterday in the emergency department, in consultation. The patient was moved over to room 152, and I saw the patient this morning in the observation unit. Currently, the patient's quite short of breath. He is lying on his right side. His saturations are in the high 70s, on 15 L nasal cannula, and nonrebreather mask. Is getting saline at 75 mL an hour since I saw him yesterday, the patient states that he feeling more short of breath. Does cough. The cough causes pain in the chest. He's not coughing up any phlegm. No fever or chills. He denies any chest pain or pressure. White count was 11.2 and hemoglobin 14.8, hematocrit 45.5, platelet count 233,000. Chest x-ray shows bilateral patchy infiltrates. Because the patient was sick for such a long period of time, he was not a candidate for REM. The patient will be moved to the intensive care unit, we can be watched more closely. The patient in the end, may require intubation and mechanical ventilation. Progress note dated 07/02/2020. This is a patient that I initially saw in consultation on June 28. He was admitted to the hospital on June 27. He was intubated for acute respiratory failure on June 29. I moved him to the ICU on June 29, because I knew he was going to deteriorate. The patient did receive both convalescent plasma and TOCI. Currently, he remains on the volume assist control mode, rate 28, tidal volume 450, FiO2 60%, PEEP of 18. Arterial blood gases on the same settings, except FiO2 70%, shows a pO2 of 121, pCO2 of 49, pH is 7.31. The patient's on vital high protein at 30 mL an hour which is goal, Nimbex at 0.5 mcg/kg/m, propofol at 40 mcg/kg/m, fentanyl at 0.25 mcg/kg/h, and saline at 75 mL an hour. White count is 12.4, hemoglobin 13.1, hematocrit 38.8, platelet count 366,000. D-dimer is 0.45, sodium 140, potassium 4.7, chlorides 110, CO2 24, anion gap 6, BUN 44, and creatinine 1.25. LDH is 704. Chest x-ray shows diffuse pleural parenchymal changes, which are stable. Objective - Vital Signs Vital signs: Vital Signs Temp 97.7 F 07/02/20 12:00 Pulse 47 L 07/02/20 13:00 Resp 32 H 07/02/20 13:00 BP 146/80 07/02/20 13:00 Pulse Ox 92 L 07/02/20 13:00 Intake & Output 07/01/20 07/02/20 07/02/20 18:59 06:59 18:59 Intake Total 2058.980 2219 973.956 Output Total 720 440 345 Balance 1111.954 655 628.956 Weight 126.1 kg Intake: IV 900 975 450 Sodium Chloride 0.9% 1, 900 975 450 000 ml @ 75 mls/hr IV . [id number] [facility] Rx#:[id number] Intake, IV Titration 404.954 100 253.956 Amount Cisatracurium 200 mg In 61.090 74.239 Sodium Chloride 0.9% 180 ml @ 1 MCG/KG/MIN 7.076 mls/hr IV .Q24H [facility] Rx#: [id number] fentaNYL (PF) 1,000 mcg 74.728 79.717 In Sodium Chloride 0.9% 80 ml @ Per Protocol IV . Q0M [facility] Rx#:[id number] propofoL 1,000 mg In 269.136 100 100 Empty Bag 1 bag @ Titrate IV .Q0M [facility] Rx#: [id number] Tube Feeding 110 20 150 Blood Product 297 Ffp Convalescent Plasma 297 Cpd Unit [id number] Other 120 120 Output: Urine 720 440 345 Other: Voiding Method Indwelling Catheter Indwelling Catheter Indwelling Catheter ABP, PAP, CO, CI - Last Documented Arterial Blood Pressure 166/76 - Exam Sedated and paralyzed, currently intubated and mechanically ventilated. HEENT examination is grossly unremarkable. Neck supple. Full range of motion. No adenopathy thyromegaly or neck vein distention. Cardiovascular examination reveals regular rhythm rate. S1-S2 normal. No S3 or S4. No discernible murmur noted. Heart rate 57 bpm. Lungs reveal bilateral rhonchi and few scattered crackles. There are no wheez es. Breath sounds equal bilaterally.. Abdomen soft bowel sounds are heard. No masses or tenderness. Extremities are intact. No cyanosis clubbing or edema. Skin is without rash or lesion. Neurologic examination could not be assessed as the patient's sedated and paralyzed. - Labs CBC & Chem 7: 07/02/20 04:00 07/02/20 04:00 Labs: Abnormal Lab Results - Last 24 Hours (Table) 07/01/20 07/01/20 07/02/20 Range/Units 17:31 23:32 04:00 WBC 12.4 H (3.8-10.6) k/uL Hct 38.8 L (39.0-53.0) % ESR 33 H (0-15) mm/hr ABG pH (7.35-7.45) ABG pCO2 (35-45) mmHg ABG pO2 (83-108) mmHg ABG Total CO2 (19-24) mmol/L ABG O2 Saturation (94-97) % Chloride (98-107) mmol/L BUN (9-20) mg/dL Glucose (74-99) mg/dL POC Glucose (mg/dL) 248 H 197 H (75-99) mg/dL Ferritin (22.0-322.0) ng/mL Lactate Dehydrogenase (313-618) U/L Total Protein (6.3-8.2) g/dL Albumin (3.5-5.0) g/dL 07/02/20 07/02/20 07/02/20 Range/Units 04:00 05:55 12:25 WBC (3.8-10.6) k/uL Hct (39.0-53.0) % ESR (0-15) mm/hr ABG pH 7.31 L (7.35-7.45) ABG pCO2 49 H (35-45) mmHg ABG pO2 121 H (83-108) mmHg ABG Total CO2 26 H (19-24) mmol/L ABG O2 Saturation 99.0 H (94-97) % Chloride 110 H (98-107) mmol/L BUN 44 H (9-20) mg/dL Glucose 202 H (74-99) mg/dL POC Glucose (mg/dL) 232 H (75-99) mg/dL Ferritin 629.9 H (22.0-322.0) ng/mL Lactate Dehydrogenase 704 H (313-618) U/L Total Protein 5.5 L (6.3-8.2) g/dL Albumin 2.9 L (3.5-5.0) g/dL Microbiology - Last 24 Hours (Table) 06/28/20 01:55 Blood Culture - Preliminary Blood No Growth after 96 hours 06/28/20 01:10 Blood Culture - Preliminary Blood No Growth after 96 hours Assessment and Plan Assessment: Acute hypoxemic respiratory failure secondary to COVID 19 pneumonia, with significantly worsening oxygenation, status post intubation on 06/29/2020. The patient has received both convalescent plasma and TOCI. History of chronic bronchial asthma. Lifelong nonsmoker. History of CAD, status post bypass grafting. History of diabetes mellitus. Hyperlipidemia by history. Hypertension. Hepatitis C. History of pneumonia. History of hypothyroidism. History of osteoarthritis. Plan: Plan dated 06/28/2020. The patient is not a candidate for REM. The patient should get vitamin C, vitamin D3, and zinc. In addition, we'll need to do a D-dimer test. The patient should also get corticosteroids. The patient should also be on a lacunar preferably Lovenox. Additional recommendations and suggestions are forthcoming. The patient is on Zosyn. Not sure why that is. We will check a pro-calcitonin level. If his low, should be discontinued. Additional recommendations and suggestions are forthcoming. We'll follow. Repeat chest x- ray in a day or 2, and inflammatory markers every 2 or 3 days. Prognosis is guarded. Plan dated 06/29/2020. The patient's oxygenation has significantly worsened in the last 24 hours. The patient is currently on a nonrebreather mask, and 15 L high flow oxygen. The patient's also receiving saline at 75 mL an hour. I'm going to move the patient to the intensive care unit for further monitoring and observation. He may require intubation and mechanical ventilation before the end of the day. I explained that to the patient. Additional recommendations suggestions are forthcoming. Prognosis is guarded. Chest x-ray and labs are reviewed. The pro-calcitonin level was only 0.12, and antibiotics will be discontinued. Plan dated 07/02/2020. The patient remains on appropriate medications. The patient's FiO2 was dropped from 70%, down to 60%. Additional recommendations and suggestions are forthcoming. Patient is currently sedated and paralyzed. We'll attempt to wean his sedatives down further. No additional recommendations are made. Prognosis is guarded. His chest x-ray is unchanged. Labs and medications are reviewed. Time with Patient: Greater than 30
[2020-07-02] MEDS: CLEVIDIPINE BUTYRATE 25 MG in EMPTY BAG 1 BAG IV SCH ×3 (18:20→23:46)
[2020-07-02 18:44] LABS: Glucose,Whole Blood 221 mg/dL (75-99)
[2020-07-02] MEDS: ATORVASTATIN 80 MG TAB PO SCH (20:12)
[2020-07-02] MEDS: ASPIRIN 81 MG PO SCH (20:12)
[2020-07-02] MEDS: allopurinoL 300 MG TAB PO SCH (21:30)
[2020-07-02 23:26] LABS: Glucose,Whole Blood 266 mg/dL (75-99)
[2020-07-03] MEDS: SODIUM CHLORIDE 0.9% 1,000 ML IV SCH ×2 (01:01→15:06)
[2020-07-03] MEDS: CLEVIDIPINE BUTYRATE 25 MG in EMPTY BAG 1 BAG IV SCH ×3 (03:32→09:46)
[2020-07-03 04:37] LABS: ABG Base Excess -2.3 mmol/L; ABG HCO3 24 mmol/L (21-25); ABG Oxygen Saturation 97.6 % (94-97); ABG PCO2 51 mmHg (35-45); ABG PH 7.29 (7.35-7.45); ABG PO2 105 mmHg (83-108); ABG TCO2 26 mmol/L (19-24); Allen Test Performed? Yes
[2020-07-03 05:10] LABS: Basophils # (A) 0.1 k/uL (0-0.2); Basophils % (A) 1 %; Eosinophils % (A) 0 %; HCT 44.1 % (39.0-53.0); HGB 14.9 gm/dL (13.0-17.5); Lymphocytes # (A) 0.5 k/uL (1.0-4.8); Lymphocytes % (A) 3 %; MCH 30.5 pg (25.0-35.0); MCHC 33.9 g/dL (31.0-37.0); Mean Platelet Volume 7.8; Monocytes # (A) 0.6 k/uL (0-1.0); Monocytes % (A) 4 %; Neutrophils # (A) 14.5 k/uL (1.3-7.7); Neutrophils % (A) 91 %; Platelet Count 341 k/uL (150-450); RDW 14.1 % (11.5-15.5); WBC 15.9 k/uL (3.8-10.6)
[2020-07-03 05:26] LABS: Albumin 3.1 g/dL (3.5-5.0); Calcium 8.5 mg/dL (8.4-10.2); Potassium 4.9 mmol/L (3.5-5.1); Total Bilirubin 0.5 mg/dL (0.2-1.3); Total Protein 5.8 g/dL (6.3-8.2)
[2020-07-03] MEDS: methylPREDNISolone SOD SUCCI 125 MG/2 ML VIAL IV SCH ×3 (06:20→17:32)
[2020-07-03] MEDS: LEVOTHYROXINE 75 MCG TAB PO SCH (06:21)
[2020-07-03] MEDS: INSULIN DETEMIR (LEVEMIR) 100 UNIT/ML SYR SQ SCH ×2 (06:21→22:42)
[2020-07-03] MEDS: INSULIN ASPART (NovoLOG) 100 UNIT/ML VIAL SQ SCH ×6 (06:21→17:40)
[2020-07-03] MEDS: PANTOPRAZOLE 40 MG TABLET PO SCH (06:21)
[2020-07-03] MEDS: ALBUTEROL HFA INHALER INHALATION SCH ×4 (07:39→19:55)
[2020-07-03] MEDS: SYMBICORT 160-4.5 MCG INHALER INHALATION SCH ×2 (08:07→19:55)
--- NOTE | 2020-07-03 08:22 | XR ---
EXAMINATION TYPE: XR chest 1V portable DATE OF EXAM: 07/03/2020 COMPARISON: 07/02/2020 HISTORY: Tube placement TECHNIQUE: Single frontal view of the chest is obtained. FINDINGS: ET and NG tube with central line stable. Coarsened interstitium. No pneumothorax. Bibasila r subsegmental consolidation. Postoperative change. Heart size stable. IMPRESSION: Diffuse pleural-parenchymal changes correlate for interstitial pneumonia is stable in ap pearance.
[2020-07-03] MEDS: CHLORHEXIDINE GLUCONATE 15 ML CUP MUCOUS MEM SCH ×2 (08:33→22:41)
[2020-07-03] MEDS: ENOXAPARIN 40 MG/0.4 ML SYRINGE SQ SCH (08:33)
[2020-07-03] MEDS: CHOLECALCIFEROL 25 MCG (1000 IU) TABLET PO SCH (08:34)
[2020-07-03] MEDS: amLODIPine 5 MG TAB PO SCH (08:34)
[2020-07-03] MEDS: ASCORBIC ACID 500 MG TAB PO SCH (08:34)
[2020-07-03] MEDS: ZINC SULFATE 220 MG CAP PO SCH (08:34)
[2020-07-03] MEDS: MULTIVITAMINS, THERA 1 EACH TAB PO SCH (08:34)
[2020-07-03] MEDS: METOPROLOL TARTRATE 50 MG TAB PO SCH ×2 (08:34→22:42)
[2020-07-03] MEDS: guaiFENesin 600 MG TABLET.ER PO SCH ×2 (08:34→22:41)
[2020-07-03] MEDS: FENOFIBRATE 160 MG TAB PO SCH (08:35)
[2020-07-03] MEDS: PIOGLITAZONE 30 MG TAB PO SCH (08:35)
[2020-07-03] MEDS ORDERED: INSULIN ASPART (NovoLOG) 100 UNIT/ML VIAL SQ SCH (09:30)
[2020-07-03 10:25] LABS: Erythrocyte Sedimentation Rate 25 mm/hr (0-15)
--- NOTE | 2020-07-03 11:09 | P.PN ---
Subjective Progress Note Date: 07/03/20 Principal diagnosis: Shortness of breath, cough 80-year-old male, seen in the emergency department, on June 27. The patient came in complaining of weakness, fatigue, shortness of breath, chest congestion, and nonproductive cough. He's been sick for at least 2 weeks. He tells me he tested positive on Thursday but he actually may have tested positive on June 17. Currently, the patient's on 6 L nasal cannula. He is not receiving any IV fluids. He has a history of asthma, coronary artery disease, chest pain, angina, diabetes mellitus, hypertension, hyperlipidemia, osteoarthritis, pneumonia, hepatitis C, bursitis, and previous bypass grafting. The patient denies ever smoking cigarettes. Current lab data includes a white count 6.4, hematocrit 43.4, hemoglobin 14.7, and a platelet count of 186,000. PT, INR and PTT are normal. Sodium 135, potassium 4.3, chlorides 100, CO2 25, anion gap 10, BUN 28, creatinine 1.68. LDH is 730, C-reactive protein is 85.9. A d-dimer was not done. N-terminal proBNP was 522. A chest x-ray done in the emergency department shows bilateral patchy infiltrates, consistent with coronavirus pneumonia. Progress note dated 06/29/2020. This is a 80-year-old patient who I saw yesterday in the emergency department, in consultation. The patient was moved over to room 152, and I saw the patient this morning in the observation unit. Currently, the patient's quite short of breath. He is lying on his right side. His saturations are in the high 70s, on 15 L nasal cannula, and nonrebreather mask. Is getting saline at 75 mL an hour since I saw him yesterday, the patient states that he feeling more short of breath. Does cough. The cough causes pain in the chest. He's not coughing up any phlegm. No fever or chills. He denies any chest pain or pressure. White count was 11.2 and hemoglobin 14.8, hematocrit 45.5, platelet count 233,000. Chest x-ray shows bilateral patchy infiltrates. Because the patient was sick for such a long period of time, he was not a candidate for REM. The patient will be moved to the intensive care unit, we can be watched more closely. The patient in the end, may require intubation and mechanical ventilation. Progress note dated 07/02/2020. This is a patient that I initially saw in consultation on June 28. He was admitted to the hospital on June 27. He was intubated for acute respiratory failure on June 29. I moved him to the ICU on June 29, because I knew he was going to deteriorate. The patient did receive both convalescent plasma and TOCI. Currently, he remains on the volume assist control mode, rate 28, tidal volume 450, FiO2 60%, PEEP of 18. Arterial blood gases on the same settings, except FiO2 70%, shows a pO2 of 121, pCO2 of 49, pH is 7.31. The patient's on vital high protein at 30 mL an hour which is goal, Nimbex at 0.5 mcg/kg/m, propofol at 40 mcg/kg/m, fentanyl at 0.25 mcg/kg/h, and saline at 75 mL an hour. White count is 12.4, hemoglobin 13.1, hematocrit 38.8, platelet count 366,000. D-dimer is 0.45, sodium 140, potassium 4.7, chlorides 110, CO2 24, anion gap 6, BUN 44, and creatinine 1.25. LDH is 704. Chest x-ray shows diffuse pleural parenchymal changes, which are stable. On 07/03/2020 patient seen in follow-up in the intensive care unit, he remains sedated, intubated on mechanical ventilator, current vent settings are assist- control with 28, tidal volume is 450, FiO2 60% and PEEP of 18, and this morning blood gases showed pO2 of 105, pCO2 of 51, and pH of 7.29 and subsequently FiO2 has been dropped to 50%, IV drips include 0.9 normal saline at 75 ML per hour, fentanyl drip is at 0.25 mics per kilo per minute, Nimbex is at 1 bertha per kilo per minute, propofol is at 50 mics per kilo per minute, and proximal is currently on hold. Activities are vital high protein and 42 with a goal of 42. Today's chest x-ray has been reviewed showing diffuse pleural parenchymal changes correlating for interstitial pneumonia, stable in appearance. Is labs have been reviewed, white count is 15.9, hemoglobin is 14.9, lymphocyte count 0.5, d-dimer 0.57, sodium is 140, potassium is 4.9, chloride is 109, CO2 is 22, LDH has trended up slightly up to 951 from 704, no CRP value available today. Patient is afebrile, hemodynamically stable, in sinus mechanism with a rate of 50 BPM. Cultures have been negative. he remains on IV steroids Solu-Medrol 60 every 6 hours, vitamins, is status post transfusion with 1 unit of convalescent plasma and Tocilizumab Objective - Vital Signs Vital signs: Vital Signs Temp 96.4 F L 07/03/20 08:00 Pulse 49 L 07/03/20 10:00 Resp 28 H 07/03/20 10:00 BP 177/104 07/03/20 08:00 Pulse Ox 92 L 07/03/20 10:00 Intake & Output 07/02/20 07/03/20 07/03/20 18:59 06:59 18:59 Intake Total 9437.114 6871.467 816.218 Output Total 640 450 305 Balance 3436.128 0765.467 511.218 Weight 127.9 kg Intake: IV 825 900 309 Pressure bag 9 Sodium Chloride 0.9% 1, 825 900 300 000 ml @ 75 mls/hr IV . [id number] [facility] Rx#:[id number] Intake, IV Titration 480.970 259.467 251.218 Amount Cisatracurium 200 mg In 94.641 107.201 Sodium Chloride 0.9% 180 ml @ 1 MCG/KG/MIN 7.076 mls/hr IV .Q24H [facility] Rx#: [id number] Clevidipine Butyrate 25 1.666 159.467 51.333 mg In Empty Bag 1 bag @ 1 MG/HR 2 mls/hr IV .Q24H [facility] Rx#:[id number] fentaNYL (PF) 1,000 mcg 89.331 In Sodium Chloride 0.9% 80 ml @ Per Protocol IV . Q0M [facility] Rx#:[id number] propofoL 1,000 mg In 295.332 100 92.684 Empty Bag 1 bag @ Titrate IV .Q0M [facility] Rx#: [id number] Tube Feeding 300 300 126 Other 150 90 130 Output: Urine 640 450 305 Other: Voiding Method Indwelling Catheter Indwelling Catheter Indwelling Catheter ABP, PAP, CO, CI - Last Documented Arterial Blood Pressure 126/62 - Exam GENERAL EXAM: Sedated, intubated, 80-year-old white male, on assist control mode of ventilation, with FiO2 60% and PEEP of 18, comfortable in no apparent distress. HEAD: Normocephalic/atraumatic. EYES: Normal reaction of pupils, equal size. Conjunctiva pink, sclera white. NOSE: Clear with pink turbinates. THROAT: No erythema or exudates. NECK: No masses, no JVD, no thyroid enlargement, no adenopathy. CHEST: No chest wall deformity. Symmetrical expansion. LUNGS: Equal air entry with no crackles, wheeze, rhonchi or dullness. CVS: Regular rate and rhythm, normal S1 and S2, no gallops, no murmurs, no rubs ABDOMEN: Soft, nontender. No hepatosplenomegaly, normal bowel sounds, no guarding or rigidity. EXTREMITIES: No clubbing, no edema, no cyanosis, 2+ pulses and upper and lower extremities. MUSCULOSKELETAL: Muscle strength and tone normal. SPINE: No scoliosis or deformity SKIN: No rashes CENTRAL NERVOUS SYSTEM: Sedated. No focal deficits, tone is normal in all 4 extremities. - Labs CBC & Chem 7: 07/03/20 04:10 07/03/20 04:10 Labs: Abnormal Lab Results - Last 24 Hours (Table) 07/02/20 07/02/20 07/02/20 Range/Units 04:00 12:25 18:42 WBC (3.8-10.6) k/uL Neutrophils # (1.3-7.7) k/uL Lymphocytes # (1.0-4.8) k/uL ESR (0-15) mm/hr ABG pH (7.35-7.45) ABG pCO2 (35-45) mmHg ABG Total CO2 (19-24) mmol/L ABG O2 Saturation (94-97) % Chloride (98-107) mmol/L BUN (9-20) mg/dL Glucose (74-99) mg/dL POC Glucose (mg/dL) 232 H 221 H (75-99) mg/dL Ferritin 629.9 H (22.0-322.0) ng/mL Lactate Dehydrogenase (313-618) U/L Total Protein (6.3-8.2) g/dL Albumin (3.5-5.0) g/dL 07/02/20 07/03/20 07/03/20 Range/Units 23:24 04:10 04:10 WBC 15.9 H (3.8-10.6) k/uL Neutrophils # 14.5 H (1.3-7.7) k/uL Lymphocytes # 0.5 L (1.0-4.8) k/uL ESR 25 H (0-15) mm/hr ABG pH (7.35-7.45) ABG pCO2 (35-45) mmHg ABG Total CO2 (19-24) mmol/L ABG O2 Saturation (94-97) % Chloride 109 H (98-107) mmol/L BUN 44 H (9-20) mg/dL Glucose 299 H (74-99) mg/dL POC Glucose (mg/dL) 266 H (75-99) mg/dL Ferritin (22.0-322.0) ng/mL Lactate Dehydrogenase 951 H (313-618) U/L Total Protein 5.8 L (6.3-8.2) g/dL Albumin 3.1 L (3.5-5.0) g/dL 07/03/20 Range/Units 04:36 WBC (3.8-10.6) k/uL Neutrophils # (1.3-7.7) k/uL Lymphocytes # (1.0-4.8) k/uL ESR (0-15) mm/hr ABG pH 7.29 L (7.35-7.45) ABG pCO2 51 H (35-45) mmHg ABG Total CO2 26 H (19-24) mmol/L ABG O2 Saturation 97.6 H (94-97) % Chloride (98-107) mmol/L BUN (9-20) mg/dL Glucose (74-99) mg/dL POC Glucose (mg/dL) (75-99) mg/dL Ferritin (22.0-322.0) ng/mL Lactate Dehydrogenase (313-618) U/L Total Protein (6.3-8.2) g/dL Albumin (3.5-5.0) g/dL Microbiology - Last 24 Hours (Table) 06/28/20 01:55 Blood Culture - Preliminary Blood No Growth after 120 hours 06/28/20 01:10 Blood Culture - Preliminary Blood No Growth after 120 hours Assessment and Plan Plan: Assessment: #1. Acute hypoxic respiratory failure secondary to Coumadin 19 pneumonia, with significantly worsening oxygenation, status post intubation on home O2 2020, status post convalescent plasma and Tocilizumab. #2. History of chronic bronchial asthma #3. Left nonsmoker #4. History of CAD, status post bypass grafting #5. History of diabetes mellitus #6. Hyperlipidemia #7. Hypertension #8. Hepatitis C #9. History of pneumonia #10. History of hypothyroidism #11. History of osteoarthritis Plan: Drop down the FiO2 down to 50%, will try to wean down the paralytics. Thoracic vent settings will stay the same, continue monitoring oxygenation, wean FiO2 to keep O2 sat at or above 80-90%. Today's chest x-ray shows bilateral interstitial pneumonia related to quit 19 infection. Labs have been reviewed, continue current dose Lovenox, Solu-Medrol, vitamin cocktail, patient has received Tocilizumab and convalescent plasma. Continue following inflammatory markers and a d-dimer. Daily chest x-ray, follow-up labs in the morning, if no worsening we'll proceed with the maintain O2 saturations in the morning and if tolerates well we'll proceed with spontaneous breathing trials in the morning I performed a history & physical examination of the patient and discussed their management with my nurse practitioner, Jewell Marquez. I reviewed the nurse practitioner's note and agree with the documented findings and plan of care. Lung sounds are positive for bilateral crackles. The findings and the impression was discussed with the patient. I attest to the documentation by the nurse practitioner. Time with Patient: Greater than 30
--- NOTE | 2020-07-03 11:27 | P.PN ---
Subjective Progress Note Date: 07/03/20 HISTORY OF PRESENT ILLNESS This is a 80-year-old male patient of Dr. 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 Patient states that he has had symptoms for 2 weeks which include body aches, shortness of breath coming foggy thinking. He denies any nausea, vomiting or diarrhea. He states he has had sputum production. He denies any lower extremity edema. Patient does not have home oxygen. Patient presented to [facility] emergency center for evaluation. Chest x-ray reveals bibasilar patchy opacities consistent with multifocal infection. No pleural effusions or pneumothorax. Temperature 100.1, heart rate 75, respiratory rate 24, blood pressure 125/63 and pulse ox 83% on room air. EKG was a sinus rhythm at 66 bpm. CBC was unremarkable except for lymphocytosis of 0.5. INR 1.0. Sodium 135, BUN 28 creatinine 1.68. Blood sugar 202. Lactic acid 1.6. Liver function tests were normal. LDH 730. C- reactive protein and a 5.9. ProBNP 522. 4/2: Patient is seen today on the observation unit as an overflow. Pulse ox is 84% on 15 L hyponasal cannula and nonrebreather. Patient seems to have more shortness of breath today and also complains of wheezing. No significant cough production. No fever or chills. No chest pain. WBC 11.2, hemoglobin 14.8, platelet count 233. Repeat chest x-ray reveals findings consistent with pneumonia. Pro-calcitonin 0.12. Blood sugars running in the 200s. Patient to be moved to the intensive care unit. 06/30: Patient declined significantly in the afternoon yesterday ended up on mechanical ventilation, he been sedated currently his marker are still quite bit high. Patient still required high demand O2 along with high PEEP of 15-20 to keep his pulse ox at the margin of 90 percentile. His blood sugars mildly elevated and still been managed on insulin, white blood cell is up to 13,000 today, his blood gas shows pO2 of 653 only. CO2 of 27 and pH of 7.31 creatinine has slightly improved since yesterday he C-reactive protein is up to 144 and LDH of 748. 4/4: Patient is still on mechanical ventilation is FiO2 is down to 70% still on PEEP of 18 I had long discussion with the and update her on with outpatient patient's condition still guarded this point his prognosis still not good but he has slight improvement compared to yesterday, his kidney function has improved slightly bit compared to yesterday as well. 07/02: Patient remains in the ICU. Patient is intubated and on mechanical ventilation with tidall volume 450,, FiO2 60%, PEEP of 18 which is improved from yesterday. He is pulse oxing 92-95%. He has been afebrile, heart rate in the 40s, respiratory rate 28, blood pressure 148/67. vehicle monitor technician is sinus bradycardia. Repeat lab work reveals WBC 12.4, hemoglobin 13.1, platelet count 266. Sed rate 33. D-dimer 0.45. Sodium 140, potassium 4.7, chloride 110, CO2 24, BUN 44 and creatinine 0.25. Blood sugars running between 197 and 248. Ferritin 629.9. LDH 704. He is currently nothing by mouth. 07/03: Patient has been afebrile, heart rate 61, blood pressure 177/104, pulse ox 97%. Patient remains intubated and on mechanical ventilation with tidal volume 450, FiO2 60, PEEP of 18. Repeat blood work reveals WBC 15.9, hemoglobin 14.9, platelet count 341. Lymphocytes 0.5. Sodium 140, potassium 4.9, chloride 109, CO2 22, BUN 44 and creatinine 1. LDH 951. Liver function tests normal. Blood sugars running between 221 and 299. Levemir will be increased to 20 units twice daily and scheduled NovoLog will be increased to 7 units every 6 hours along with NovoLog scale continued. Tube feedings are at goal. Repeat chest x-ray reveals diffuse pleural parenchymal changes correlate for interstitial pneumonia is stable. Dr. Beverly has stopped Nimbex and Cleviprex. REVIEW OF SYSTEMS Unable to obtain due to intubation, mechanical ventilation and sedation. PHYSICAL EXAMINATION Gen: This is a morbidly obese 80-year-old male. He is resting in ICU bed intubated and on mechanical ventilation, patient appears to be comfortable. HEENT: Head is atraumatic, normocephalic. Pupils equal, round. Sclerae is anicteric. NECK: Supple. No JVD. No lymphadenopathy. No thyromegaly. LUNGS: Clear to auscultation. No wheezes or rhonchi. No intercostal retractions. HEART: Regular rate and rhythm. No murmur. ABDOMEN: Soft. Bowel sounds are present. No masses. No tenderness. Tyler catheter draining clear yannick urine. EXTREMITIES: No pedal edema. No calf tenderness. NEUROLOGICAL: Patient is unresponsive, sedated. ASSESSMENT AND PLAN 1. Acute hypoxic respiratory failure secondary to COVID19 Pneumonia. Continue mechanical ventilation. Continue Solu-Medrol 60 mg IV every 6 hours, Lovenox 40 mg daily, albuterol inhaler 2 puffs every 6 hours, vitamins C, vitamin D, zinc, Symbicort twice daily, continue current set up of his vent management patient is managed by double bottom driver. 2. Possible secondary bacterial gram-negative pneumonia ruledut by pulmonary medicine. 3. Acute kidney injury with chronic kidney disease stage III. Continue IV fluids 0.9 normal saline. Recheck lab work in the morning. Creatinine is down to 1.59 with slight improvement. 3. History of coronary artery disease status post CABG, stable. Continue aspirin 81 mg daily, Lipitor 80 mg at bedtime, Lopressor 50 mg twice daily. 4. Diabetes mellitus type 2, uncontrolled with hyperglycemia secondary to steroids. Continue Actos 30 mg daily, NovoLog scale before meals and at bedtime, Levemir increased to 20 units twice daily, scheduled NovoLog increased to 7 units every 6 hours. 5. Hypertension. Continue Lopressor, Norvasc 5 mg daily. 6. Hyperlipidemia. Continue atorvastatin and fenofibrate 7. Hypothyroidism. Continue levothyroxine 75 g daily. 8. GI prophylaxis. Protonix. 9. DVT prophylaxis. Lovenox. Prognosis is guarded. Dr. Benites will contact patient's today to provide update. Impression and plan of care have been directed as dictated by the signing physician. Mihaela Roberts nurse practitioner acting as scribe for signing physician. Objective - Vital Signs Vital signs: Vital Signs Temp 96.4 F L 07/03/20 08:00 Pulse 61 07/03/20 08:00 Resp 28 H 07/03/20 08:00 BP 177/104 07/03/20 08:00 Pulse Ox 97 07/03/20 08:00 Intake & Output 07/02/20 07/03/20 07/03/20 18:59 06:59 18:59 Intake Total 6507.767 0215.467 351.284 Output Total 640 450 165 Balance 5027.351 4823.467 186.284 Weight 127.9 kg Intake: IV 825 900 153 Pressure bag 3 Sodium Chloride 0.9% 1, 825 900 150 000 ml @ 75 mls/hr IV . [id number] NAEEM Rx#:[id number] Intake, IV Titration 480.970 259.467 126.284 Amount Cisatracurium 200 mg In 94.641 Sodium Chloride 0.9% 180 ml @ 1 MCG/KG/MIN 7.076 mls/hr IV .Q24H NAEEM Rx#: [id number] Clevidipine Butyrate 25 1.666 159.467 33.6 mg In Empty Bag 1 bag @ 1 MG/HR 2 mls/hr IV .Q24H NAEEM Rx#:[id number] fentaNYL (PF) 1,000 mcg 89.331 In Sodium Chloride 0.9% 80 ml @ Per Protocol IV . Q0M NAEEM Rx#:[id number] propofoL 1,000 mg In 295.332 100 92.684 Empty Bag 1 bag @ Titrate IV .Q0M NAEEM Rx#: [id number] Tube Feeding 300 300 42 Other 150 90 30 Output: Urine 640 450 165 Other: Voiding Method Indwelling Catheter Indwelling Catheter ABP, PAP, CO, CI - Last Documented Arterial Blood Pressure 148/67 - Labs CBC & Chem 7: 07/03/20 04:10 07/03/20 04:10 Labs: Abnormal Lab Results - Last 24 Hours (Table) 07/02/20 07/02/20 07/02/20 Range/Units 04:00 12:25 18:42 WBC (3.8-10.6) k/uL Neutrophils # (1.3-7.7) k/uL Lymphocytes # (1.0-4.8) k/uL ABG pH (7.35-7.45) ABG pCO2 (35-45) mmHg ABG Total CO2 (19-24) mmol/L ABG O2 Saturation (94-97) % Chloride (98-107) mmol/L BUN (9-20) mg/dL Glucose (74-99) mg/dL POC Glucose (mg/dL) 232 H 221 H (75-99) mg/dL Ferritin 629.9 H (22.0-322.0) ng/mL Lactate Dehydrogenase (313-618) U/L Total Protein (6.3-8.2) g/dL Albumin (3.5-5.0) g/dL 07/02/20 07/03/20 07/03/20 Range/Units 23:24 04:10 04:10 WBC 15.9 H (3.8-10.6) k/uL Neutrophils # 14.5 H (1.3-7.7) k/uL Lymphocytes # 0.5 L (1.0-4.8) k/uL ABG pH (7.35-7.45) ABG pCO2 (35-45) mmHg ABG Total CO2 (19-24) mmol/L ABG O2 Saturation (94-97) % Chloride 109 H (98-107) mmol/L BUN 44 H (9-20) mg/dL Glucose 299 H (74-99) mg/dL POC Glucose (mg/dL) 266 H (75-99) mg/dL Ferritin (22.0-322.0) ng/mL Lactate Dehydrogenase 951 H (313-618) U/L Total Protein 5.8 L (6.3-8.2) g/dL Albumin 3.1 L (3.5-5.0) g/dL 07/03/20 Range/Units 04:36 WBC (3.8-10.6) k/uL Neutrophils # (1.3-7.7) k/uL Lymphocytes # (1.0-4.8) k/uL ABG pH 7.29 L (7.35-7.45) ABG pCO2 51 H (35-45) mmHg ABG Total CO2 26 H (19-24) mmol/L ABG O2 Saturation 97.6 H (94-97) % Chloride (98-107) mmol/L BUN (9-20) mg/dL Glucose (74-99) mg/dL POC Glucose (mg/dL) (75-99) mg/dL Ferritin (22.0-322.0) ng/mL Lactate Dehydrogenase (313-618) U/L Total Protein (6.3-8.2) g/dL Albumin (3.5-5.0) g/dL Microbiology - Last 24 Hours (Table) 06/28/20 01:55 Blood Culture - Preliminary Blood No Growth after 120 hours 06/28/20 01:10 Blood Culture - Preliminary Blood No Growth after 120 hours
[2020-07-03 11:49] LABS: Glucose,Whole Blood 237 mg/dL (75-99)
[2020-07-03] MEDS: fentaNYL (PF) 1,000 MCG in SODIUM CHLORIDE 0.9% 80 ML IV SCH (13:03)
[2020-07-03] MEDS: CISATRACURIUM 200 MG in SODIUM CHLORIDE 0.9% 180 ML IV SCH (15:30)
[2020-07-03 17:38] LABS: Glucose,Whole Blood 238 mg/dL (75-99)
[2020-07-03] MEDS: ATORVASTATIN 80 MG TAB PO SCH (22:41)
[2020-07-03] MEDS: ASPIRIN 81 MG PO SCH (22:42)
[2020-07-03] MEDS: allopurinoL 300 MG TAB PO SCH (22:42)
[2020-07-04 01:19] LABS: Glucose,Whole Blood 214 mg/dL (75-99)
[2020-07-04] MEDS: methylPREDNISolone SOD SUCCI 125 MG/2 ML VIAL IV SCH ×4 (01:22→17:46)
[2020-07-04] MEDS: INSULIN ASPART (NovoLOG) 100 UNIT/ML VIAL SQ SCH ×8 (01:23→17:45)
[2020-07-04] MEDS: SODIUM CHLORIDE 0.9% 1,000 ML IV SCH ×2 (03:36→17:17)
[2020-07-04 05:59] LABS: ABG Base Excess 0.2 mmol/L; ABG HCO3 25 mmol/L (21-25); ABG Oxygen Saturation 91.4 % (94-97); ABG PCO2 44 mmHg (35-45); ABG PH 7.37 (7.35-7.45); ABG PO2 61 mmHg (83-108); ABG TCO2 27 mmol/L (19-24)
[2020-07-04 06:05] LABS: Albumin 2.6 g/dL (3.5-5.0); Calcium 8.2 mg/dL (8.4-10.2); Potassium 4.6 mmol/L (3.5-5.1); Total Bilirubin 0.4 mg/dL (0.2-1.3)
[2020-07-04 06:16] LABS: Allen Test Performed? no
[2020-07-04] MEDS: LEVOTHYROXINE 75 MCG TAB PO SCH (06:28)
[2020-07-04] MEDS: INSULIN DETEMIR (LEVEMIR) 100 UNIT/ML SYR SQ SCH ×2 (06:28→22:38)
[2020-07-04] MEDS: PANTOPRAZOLE 40 MG TABLET PO SCH (06:28)
[2020-07-04] MEDS: CLEVIDIPINE BUTYRATE 25 MG in EMPTY BAG 1 BAG IV SCH ×2 (07:55→17:04)
--- NOTE | 2020-07-04 07:59 | XR ---
EXAMINATION TYPE: XR chest 1V portable DATE OF EXAM: 07/04/2020 COMPARISON: 07/03/2020 HISTORY: Tube placement TECHNIQUE: Single frontal view of the chest is obtained. FINDINGS: ET and NG tube noted. Left-sided central line seen and there is postoperative changes. Hea rt enlarged with diffuse interstitial and mixed alveolar infiltrate and pleural effusion. IMPRESSION: Diffuse bilateral airspace disease stable correlate for diffuse pneumonia, ARDS versus p ulmonary edema.
[2020-07-04] MEDS: fentaNYL (PF) 1,000 MCG in SODIUM CHLORIDE 0.9% 80 ML IV SCH (08:26)
[2020-07-04 08:42] LABS: Basophils # (A) 0.1 k/uL (0-0.2); Basophils % (A) 1 %; Eosinophils % (A) 0 %; HCT 39.7 % (39.0-53.0); HGB 13.8 gm/dL (13.0-17.5); Lymphocytes # (A) 0.6 k/uL (1.0-4.8); Lymphocytes % (A) 4 %; MCH 30.8 pg (25.0-35.0); MCHC 34.8 g/dL (31.0-37.0); MCV 88.5 fL (80.0-100.0); Monocytes # (A) 0.6 k/uL (0-1.0); Monocytes % (A) 5 %; Neutrophils # (A) 12.2 k/uL (1.3-7.7); Neutrophils % (A) 90 %; Platelet Count 304 k/uL (150-450); RBC 4.48 m/uL (4.30-5.90); WBC 13.6 k/uL (3.8-10.6)
[2020-07-04] MEDS: SYMBICORT 160-4.5 MCG INHALER INHALATION SCH (08:56)
[2020-07-04] MEDS: ALBUTEROL HFA INHALER INHALATION SCH ×4 (08:56→22:05)
[2020-07-04] MEDS: ENOXAPARIN 40 MG/0.4 ML SYRINGE SQ SCH (09:00)
[2020-07-04] MEDS: CHLORHEXIDINE GLUCONATE 15 ML CUP MUCOUS MEM SCH ×2 (09:00→22:38)
[2020-07-04] MEDS: ASCORBIC ACID 500 MG TAB PO SCH (09:00)
[2020-07-04] MEDS: FENOFIBRATE 160 MG TAB PO SCH (09:00)
[2020-07-04] MEDS: amLODIPine 5 MG TAB PO SCH (09:00)
[2020-07-04] MEDS: PIOGLITAZONE 30 MG TAB PO SCH (09:00)
[2020-07-04] MEDS: MULTIVITAMINS, THERA 1 EACH TAB PO SCH (09:00)
[2020-07-04] MEDS: CHOLECALCIFEROL 25 MCG (1000 IU) TABLET PO SCH (09:00)
[2020-07-04] MEDS: ZINC SULFATE 220 MG CAP PO SCH (09:00)
[2020-07-04] MEDS: guaiFENesin 600 MG TABLET.ER PO SCH ×2 (09:00→22:38)
[2020-07-04 11:33] LABS: Glucose,Whole Blood 166 mg/dL (75-99)
--- NOTE | 2020-07-04 11:36 | P.PN ---
Subjective Progress Note Date: 07/04/20 Principal diagnosis: Shortness of breath, cough. 80-year-old male, seen in the emergency department, on June 27. The patient came in complaining of weakness, fatigue, shortness of breath, chest congestion, and nonproductive cough. He's been sick for at least 2 weeks. He tells me he tested positive on Thursday but he actually may have tested positive on June 17. Currently, the patient's on 6 L nasal cannula. He is not receiving any IV fluids. He has a history of asthma, coronary artery disease, chest pain, angina, diabetes mellitus, hypertension, hyperlipidemia, osteoarthritis, pneumonia, hepatitis C, bursitis, and previous bypass grafting. The patient denies ever smoking cigarettes. Current lab data includes a white count 6.4, hematocrit 43.4, hemoglobin 14.7, and a platelet count of 186,000. PT, INR and PTT are normal. Sodium 135, potassium 4.3, chlorides 100, CO2 25, anion gap 10, BUN 28, creatinine 1.68. LDH is 730, C-reactive protein is 85.9. A d-dimer was not done. N-terminal proBNP was 522. A chest x-ray done in the emergency department shows bilateral patchy infiltrates, consistent with coronavirus pneumonia. Progress note dated 06/29/2020. This is a 80-year-old patient who I saw yesterday in the emergency department, in consultation. The patient was moved over to room 152, and I saw the patient this morning in the observation unit. Currently, the patient's quite short of breath. He is lying on his right side. His saturations are in the high 70s, on 15 L nasal cannula, and nonrebreather mask. Is getting saline at 75 mL an hour since I saw him yesterday, the patient states that he feeling more short of breath. Does cough. The cough causes pain in the chest. He's not coughing up any phlegm. No fever or chills. He denies any chest pain or pressure. White count was 11.2 and hemoglobin 14.8, hematocrit 45.5, platelet count 233,000. Chest x-ray shows bilateral patchy infiltrates. Because the patient was sick for such a long period of time, he was not a candidate for REM. The patient will be moved to the intensive care unit, we can be watched more closely. The patient in the end, may require intubation and mechanical ventilation. Progress note dated 07/02/2020. This is a patient that I initially saw in consultation on June 28. He was admitted to the hospital on June 27. He was intubated for acute respiratory failure on June 29. I moved him to the ICU on June 29, because I knew he was going to deteriorate. The patient did receive both convalescent plasma and TOCI. Currently, he remains on the volume assist control mode, rate 28, tidal volume 450, FiO2 60%, PEEP of 18. Arterial blood gases on the same settings, except FiO2 70%, shows a pO2 of 121, pCO2 of 49, pH is 7.31. The patient's on vital high protein at 30 mL an hour which is goal, Nimbex at 0.5 mcg/kg/m, propofol at 40 mcg/kg/m, fentanyl at 0.25 mcg/kg/h, and saline at 75 mL an hour. White count is 12.4, hemoglobin 13.1, hematocrit 38.8, platelet count 366,000. D-dimer is 0.45, sodium 140, potassium 4.7, chlorides 110, CO2 24, anion gap 6, BUN 44, and creatinine 1.25. LDH is 704. Chest x-ray shows diffuse pleural parenchymal changes, which are stable. Progress note dated 07/04/2020. The patient is again seen today. The patient is a room 259. He remains on the mechanical ventilator. He is on the volume assist control mode, rate of 28, tidal volume 450, FiO2 60%, he probably 18. Blood gases show pO2 61, pCO2 44, and a pH is 7.37. The patient's currently on Cleveprex at 2 mg an hour, propofol at 75 mcg/kg/m, fentanyl at 0.4 mcg/kg/h, saline at 75 mL an hour, and vital high protein at 10 mL an hour, which is goal. The patient has been weaned off the Nimbex. White count is 13.6, him from 13.8, hematocrit 39.7, platelet count 304,000. Most recent d-dimer is 0.73. Sed rate is 19. Blood gases have been noted. Current sodium is 141, potassium 4.6, chlorides 112, CO2 25, anion gap 4, BUN 43, creatinine 1.10. Calcium is 8.2. LDH 745. Chest x-rays consistent with diffuse bilateral airspace disease. Objective - Vital Signs Vital signs: Vital Signs Temp 97.7 F 07/04/20 00:00 Pulse 43 L 07/04/20 07:00 Resp 20 07/04/20 07:00 BP 177/104 07/03/20 08:00 Pulse Ox 92 L 07/04/20 07:00 Intake & Output 07/03/20 07/04/20 07/04/20 18:59 06:59 18:59 Intake Total 2130.383 1336.432 174.684 Output Total 865 370 30 Balance 1265.383 966.432 144.684 Weight 127.9 kg 132 kg Intake: IV 933 936 78 Pressure bag 33 36 3 Sodium Chloride 0.9% 1, 900 900 75 000 ml @ 75 mls/hr IV . [id number] NAEEM Rx#:[id number] Intake, IV Titration 683.383 260.432 96.684 Amount Cisatracurium 200 mg In 107.201 Sodium Chloride 0.9% 180 ml @ 1 MCG/KG/MIN 7.076 mls/hr IV .Q24H NAEEM Rx#: [id number] Clevidipine Butyrate 25 56.666 0 mg In Empty Bag 1 bag @ 1 MG/HR 2 mls/hr IV .Q24H NAE[facility] Rx#:[id number] fentaNYL (PF) 1,000 mcg 68.065 96.684 In Sodium Chloride 0.9% 80 ml @ Per Protocol IV . Q0M NAE[facility] Rx#:[id number] propofoL 1,000 mg In 451.451 260.432 Empty Bag 1 bag @ Titrate IV .Q0M NAEEM Rx#: [id number] Tube Feeding 324 80 Other 190 60 Output: Urine 865 370 30 Other: Voiding Method Indwelling Catheter Indwelling Catheter ABP, PAP, CO, CI - Last Documented Arterial Blood Pressure 134/56 - Exam Sedated , currently intubated and mechanically ventilated. HEENT examination is grossly unremarkable. Neck supple. Full range of motion. No adenopathy thyromegaly or neck vein distention. Cardiovascular examination reveals regular rhythm rate. S1-S2 normal. No S3 or S4. No discernible murmur noted. Heart rate 43 bpm. Lungs reveal bilateral rhonchi and few scattered crackles. There are no wheezes. Breath sounds equal bilaterally. Lung exam is essentially unchanged. Abdomen soft bowel sounds are heard. No masses or tenderness. Extremities are intact. No cyanosis clubbing or edema. Skin is without rash or lesion. Neurologic examination could not be assessed as the patient's is sedated. - Labs CBC & Chem 7: 07/04/20 07:45 07/04/20 05:10 Labs: Abnormal Lab Results - Last 24 Hours (Table) 07/03/20 07/03/20 07/03/20 Range/Units 04:10 11:47 17:36 WBC (3.8-10.6) k/uL Neutrophils # (1.3-7.7) k/uL Lymphocytes # (1.0-4.8) k/uL ESR (0-15) mm/hr D-Dimer (<0.60) mg/L FEU ABG pO2 (83-108) mmHg ABG Total CO2 (19-24) mmol/L ABG O2 Saturation (94-97) % Chloride (98-107) mmol/L BUN (9-20) mg/dL Glucose (74-99) mg/dL POC Glucose (mg/dL) 237 H 238 H (75-99) mg/dL Calcium (8.4-10.2) mg/dL Ferritin 861.0 H (22.0-322.0) ng/mL Lactate Dehydrogenase (313-618) U/L Total Protein (6.3-8.2) g/dL Albumin (3.5-5.0) g/dL 07/04/20 07/04/20 07/04/20 Range/Units 01:17 05:10 05:10 WBC (3.8-10.6) k/uL Neutrophils # (1.3-7.7) k/uL Lymphocytes # (1.0-4.8) k/uL ESR 19 H (0-15) mm/hr D-Dimer 0.73 H (<0.60) mg/L FEU ABG pO2 (83-108) mmHg ABG Total CO2 (19-24) mmol/L ABG O2 Saturation (94-97) % Chloride (98-107) mmol/L BUN (9-20) mg/dL Glucose (74-99) mg/dL POC Glucose (mg/dL) 214 H (75-99) mg/dL Calcium (8.4-10.2) mg/dL Ferritin (22.0-322.0) ng/mL Lactate Dehydrogenase (313-618) U/L Total Protein (6.3-8.2) g/dL Albumin (3.5-5.0) g/dL 07/04/20 07/04/20 07/04/20 Range/Units 05:10 05:57 07:45 WBC 13.6 H (3.8-10.6) k/uL Neutrophils # 12.2 H (1.3-7.7) k/uL Lymphocytes # 0.6 L (1.0-4.8) k/uL ESR (0-15) mm/hr D-Dimer (<0.60) mg/L FEU ABG pO2 61 L (83-108) mmHg ABG Total CO2 27 H (19-24) mmol/L ABG O2 Saturation 91.4 L (94-97) % Chloride 112 H (98-107) mmol/L BUN 43 H (9-20) mg/dL Glucose 194 H (74-99) mg/dL POC Glucose (mg/dL) (75-99) mg/dL Calcium 8.2 L (8.4-10.2) mg/dL Ferritin (22.0-322.0) ng/mL Lactate Dehydrogenase 745 H (313-618) U/L Total Protein 5.0 L (6.3-8.2) g/dL Albumin 2.6 L (3.5-5.0) g/dL Microbiology - Last 24 Hours (Table) 06/28/20 01:55 Blood Culture - Final Blood No Growth after 144 hours 06/28/20 01:10 Blood Culture - Final Blood No Growth after 144 hours Assessment and Plan Assessment: Acute hypoxemic respiratory failure secondary to COVID 19 pneumonia, with significantly worsening oxygenation, status post intubation on 06/29/2020. The patient has received both convalescent plasma and TOCI. History of chronic bronchial asthma. Lifelong nonsmoker. History of CAD, status post bypass grafting. History of diabetes mellitus. Hyperlipidemia by history. Hypertension. Hepatitis C. History of pneumonia. History of hypothyroidism. History of osteoarthritis. Plan: Plan dated 06/28/2020. The patient is not a candidate for REM. The patient should get vitamin C, vi tamin D3, and zinc. In addition, we'll need to do a D-dimer test. The patient should also get corticosteroids. The patient should also be on a lacunar preferably Lovenox. Additional recommendations and suggestions are forthcoming. The patient is on Zosyn. Not sure why that is. We will check a pro-calcitonin level. If his low, should be discontinued. Additional recommendations and suggestions are forthcoming. We'll follow. Repeat chest x-ray in a day or 2, and inflammatory markers every 2 or 3 days. Prognosis is guarded. Plan dated 06/29/2020. The patient's oxygenation has significantly worsened in the last 24 hours. The patient is currently on a nonrebreather mask, and 15 L high flow oxygen. The patient's also receiving saline at 75 mL an hour. I'm going to move the patient to the intensive care unit for further monitoring and observation. He may require intubation and mechanical ventilation before the end of the day. I explained that to the patient. Additional recommendations suggestions are forthcoming. Prognosis is guarded. Chest x-ray and labs are reviewed. The pro-calcitonin level was only 0.12, and antibiotics will be discontinued. Plan dated 07/02/2020. The patient remains on appropriate medications. The patient's FiO2 was dropped from 70%, down to 60%. Additional recommendations and suggestions are forthcoming. Patient is currently sedated and paralyzed. We'll attempt to wean his sedatives down further. No additional recommendations are made. Prognosis is guarded. His chest x-ray is unchanged. Labs and medications are reviewed. Plan dated 07/04/2020. The patient remains on mechanical ventilator. The patient's on Cleveprex for b lood pressure control. For sedation, the patient is on propofol, and for pain control, fentanyl. The Nimbex was weaned off yesterday. He remains on enteral nutrition, at goal. Labs, x-rays, and medications all reviewed. I'm hoping that we can progress to patient so that we can do a daily eruption of sedation. Prognosis is guarded. Because of pro-calcitonin level was low, antibiotics were discontinued. Medications are reviewed. Time with Patient: Greater than 30
[2020-07-04 12:05] LABS: Ferritin 683.9 ng/mL (22.0-322.0)
--- NOTE | 2020-07-04 13:53 | P.PN ---
Subjective Progress Note Date: 07/04/20 HISTORY OF PRESENT ILLNESS This is a 80-year-old male patient of Dr. 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 Patient states that he has had symptoms for 2 weeks which include body aches, shortness of breath coming foggy thinking. He denies any nausea, vomiting or diarrhea. He states he has had sputum production. He denies any lower extremity edema. Patient does not have home oxygen. Patient presented to [facility] emergency center for evaluation. Chest x-ray reveals bibasilar patchy opacities consistent with multifocal infection. No pleural effusions or pneumothorax. Temperature 100.1, heart rate 75, respiratory rate 24, blood pressure 125/63 and pulse ox 83% on room air. EKG was a sinus rhythm at 66 bpm. CBC was unremarkable except for lymphocytosis of 0.5. INR 1.0. Sodium 135, BUN 28 creatinine 1.68. Blood sugar 202. Lactic acid 1.6. Liver function tests were normal. LDH 730. C- reactive protein and a 5.9. ProBNP 522. 4/2: Patient is seen today on the observation unit as an overflow. Pulse ox is 84% on 15 L hyponasal cannula and nonrebreather. Patient seems to have more shortness of breath today and also complains of wheezing. No significant cough production. No fever or chills. No chest pain. WBC 11.2, hemoglobin 14.8, platelet count 233. Repeat chest x-ray reveals findings consistent with pneumonia. Pro-calcitonin 0.12. Blood sugars running in the 200s. Patient to be moved to the intensive care unit. 06/30: Patient declined significantly in the afternoon yesterday ended up on mechanical ventilation, he been sedated currently his marker are still quite bit high. Patient still required high demand O2 along with high PEEP of 15-20 to keep his pulse ox at the margin of 90 percentile. His blood sugars mildly elevated and still been managed on insulin, white blood cell is up to 13,000 today, his blood gas shows pO2 of 653 only. CO2 of 27 and pH of 7.31 creatinine has slightly improved since yesterday he C-reactive protein is up to 144 and LDH of 748. 4/4: Patient is still on mechanical ventilation is FiO2 is down to 70% still on PEEP of 18 I had long discussion with the and update her on with outpatient patient's condition still guarded this point his prognosis still not good but he has slight improvement compared to yesterday, his kidney function has improved slightly bit compared to yesterday as well. 07/02: Patient remains in the ICU. Patient is intubated and on mechanical ventilation with tidall volume 450,, FiO2 60%, PEEP of 18 which is improved from yesterday. He is pulse oxing 92-95%. He has been afebrile, heart rate in the 40s, respiratory rate 28, blood pressure 148/67. lunchroom monitor is sinus bradycardia. Repeat lab work reveals WBC 12.4, hemoglobin 13.1, platelet count 266. Sed rate 33. D-dimer 0.45. Sodium 140, potassium 4.7, chloride 110, CO2 24, BUN 44 and creatinine 0.25. Blood sugars running between 197 and 248. Ferritin 629.9. LDH 704. He is currently nothing by mouth. 07/03: Patient has been afebrile, heart rate 61, blood pressure 177/104, pulse ox 97%. Patient remains intubated and on mechanical ventilation with tidal volume 450, FiO2 60, PEEP of 18. Repeat blood work reveals WBC 15.9, hemoglobin 14.9, platelet count 341. Lymphocytes 0.5. Sodium 140, potassium 4.9, chloride 109, CO2 22, BUN 44 and creatinine 1. LDH 951. Liver function tests normal. Blood sugars running between 221 and 299. Levemir will be increased to 20 units twice daily and scheduled NovoLog will be increased to 7 units every 6 hours along with NovoLog scale continued. Tube feedings are at goal. Repeat chest x-ray reveals diffuse pleural parenchymal changes correlate for interstitial pneumonia is stable. Dr. Beverly has stopped Nimbex and Cleviprex. 07/04: Heart rate has been running in the 40s and Lopressor decreased from 50 mg twice daily to 25 mg twice daily and parameters to hold if heart rate is less than 55. Blood pressure is still been an issue and patient was weaned off Alan viprex. She remains intubated and on mechanical ventilation with tidal volume 520, FiO2 60, PEEP of 18. Blood sugar was still running high until this morning, this morning's blood sugar 194. Adjustments were made to his insulin yesterday and tube feeding dose decreased today. Will hold on making any further changes with insulins. Repeat blood work reveals sed rate of 90, d- dimer 0.73. Sodium 141, potassium 4.6, chloride 112, CO2 25, BUN 43, creatinine 1.10. Ferritin 683.9. LDH 745. Repeat chest x-ray reveals diffuse bilateral airspace disease stable correlate for diffuse pneumonia, ARDS versus pulmonary edema. REVIEW OF SYSTEMS Unable to obtain due to intubation, mechanical ventilation and sedation. PHYSICAL EXAMINATION Gen: This is a morbidly obese 80-year-old male. He is resting in ICU bed intubated and on mechanical ventilation, patient appears to be comfortable. HEENT: Head is atraumatic, normocephalic. Pupils equal, round. Sclerae is anicteric. NECK: Supple. No JVD. No lymphadenopathy. No thyromegaly. LUNGS: Clear to auscultation. No wheezes or rhonchi. No intercostal retractions. HEART: Regular rate and rhythm. No murmur. ABDOMEN: Soft. Bowel sounds are present. No masses. No tenderness. Tyler ca theter draining clear yannick urine. EXTREMITIES: No pedal edema. No calf tenderness. NEUROLOGICAL: Patient is unresponsive, sedated. ASSESSMENT AND PLAN 1. Acute hypoxic respiratory failure secondary to COVID19 Pneumonia. Continue mechanical ventilation. Continue Solu-Medrol 60 mg IV every 6 hours, Lovenox 40 mg daily, albuterol inhaler 2 puffs every 6 hours, vitamins C, vitamin D, zinc, Symbicort twice daily, continue current set up of his vent management patient is managed by home connect lpn. 2. Possible secondary bacterial gram-negative pneumonia ruledut by pulmonary medicine. 3. Acute kidney injury with chronic kidney disease stage III. Continue IV fluids 0.9 normal saline. Recheck lab work in the morning. Creatinine is down to 1.59 with slight improvement. 3. History of coronary artery disease status post CABG, stable. Continue aspirin 81 mg daily, Lipitor 80 mg at bedtime, Lopressor 50 mg twice daily. 4. Diabetes mellitus type 2, uncontrolled with hyperglycemia secondary to steroids. Continue Actos 30 mg daily, NovoLog scale before meals and at bedtime, continue Levemir 20 units twice daily, scheduled NovoLog 7 units every 6 hours. 5. Hypertension. Continue Lopressor, Norvasc 5 mg daily. Patient has been weaned off Cleviprex. 6. Hyperlipidemia. Continue atorvastatin and fenofibrate 7. Hypothyroidism. Continue levothyroxine 75 g daily. 8. Bradycardia. Lopressor decreased to 25 mg twice daily . 9. GI prophylaxis. Protonix. 9. DVT prophylaxis. Lovenox. Prognosis is guarded. Impression and plan of care have been directed as dictated by the signing physician. Mihaela Roberts nurse practitioner acting as scribe for signing physician. Objective - Vital Signs Vital signs: Vital Signs Temp 97.7 F 07/04/20 00:00 Pulse 43 L 07/04/20 07:00 Resp 20 07/04/20 07:00 BP 177/104 07/03/20 08:00 Pulse Ox 92 L 07/04/20 07:00 Intake & Output 07/03/20 07/04/20 07/04/20 18:59 06:59 18:59 Intake Total 2130.383 1336.432 174.684 Output Total 865 370 30 Balance 1265.383 966.432 144.684 Weight 127.9 kg 132 kg Intake: IV 933 936 78 Pressure bag 33 36 3 Sodium Chloride 0.9% 1, 900 900 75 000 ml @ 75 mls/hr IV . [id number] NAEEM Rx#:[id number] Intake, IV Titration 683.383 260.432 96.684 Amount Cisatracurium 200 mg In 107.201 Sodium Chloride 0.9% 180 ml @ 1 MCG/KG/MIN 7.076 mls/hr IV .Q24H NAEEM Rx#: [id number] Clevidipine Butyrate 25 56.666 0 mg In Empty Bag 1 bag @ 1 MG/HR 2 mls/hr IV .Q24H NAEEM Rx#:[id number] fentaNYL (PF) 1,000 mcg 68.065 96.684 In Sodium Chloride 0.9% 80 ml @ Per Protocol IV . Q0M NAEEM Rx#:[id number] propofoL 1,000 mg In 451.451 260.432 Empty Bag 1 bag @ Titrate IV .Q0M NAEEM Rx#: [id number] Tube Feeding 324 80 Other 190 60 Output: Urine 865 370 30 Other: Voiding Method Indwelling Catheter Indwelling Catheter ABP, PAP, CO, CI - Last Documented Arterial Blood Pressure 134/56 - Labs CBC & Chem 7: 07/04/20 07:45 07/04/20 05:10 Labs: Abnormal Lab Results - Last 24 Hours (Table) 07/03/20 07/03/20 07/03/20 Range/Units 04:10 11:47 17:36 WBC (3.8-10.6) k/uL Neutrophils # (1.3-7.7) k/uL Lymphocytes # (1.0-4.8) k/uL ESR (0-15) mm/hr D-Dimer (<0.60) mg/L FEU ABG pO2 (83-108) mmHg ABG Total CO2 (19-24) mmol/L ABG O2 Saturation (94-97) % Chloride (98-107) mmol/L BUN (9-20) mg/dL Glucose (74-99) mg/dL POC Glucose (mg/dL) 237 H 238 H (75-99) mg/dL Calcium (8.4-10.2) mg/dL Ferritin 861.0 H (22.0-322.0) ng/mL Lactate Dehydrogenase (313-618) U/L Total Protein (6.3-8.2) g/dL Albumin (3.5-5.0) g/dL 07/04/20 07/04/20 07/04/20 Range/Units 01:17 05:10 05:10 WBC (3.8-10.6) k/uL Neutrophils # (1.3-7.7) k/uL Lymphocytes # (1.0-4.8) k/uL ESR 19 H (0-15) mm/hr D-Dimer 0.73 H (<0.60) mg/L FEU ABG pO2 (83-108) mmHg ABG Total CO2 (19-24) mmol/L ABG O2 Saturation (94-97) % Chloride (98-107) mmol/L BUN (9-20) mg/dL Glucose (74-99) mg/dL POC Glucose (mg/dL) 214 H (75-99) mg/dL Calcium (8.4-10.2) mg/dL Ferritin (22.0-322.0) ng/mL Lactate Dehydrogenase (313-618) U/L Total Protein (6.3-8.2) g/dL Albumin (3.5-5.0) g/dL 07/04/20 07/04/20 07/04/20 Range/Units 05:10 05:57 07:45 WBC 13.6 H (3.8-10.6) k/uL Neutrophils # 12.2 H (1.3-7.7) k/uL Lymphocytes # 0.6 L (1.0-4.8) k/uL ESR (0-15) mm/hr D-Dimer (<0.60) mg/L FEU ABG pO2 61 L (83-108) mmHg ABG Total CO2 27 H (19-24) mmol/L ABG O2 Saturation 91.4 L (94-97) % Chloride 112 H (98-107) mmol/L BUN 43 H (9-20) mg/dL Glucose 194 H (74-99) mg/dL POC Glucose (mg/dL) (75-99) mg/dL Calcium 8.2 L (8.4-10.2) mg/dL Ferritin (22.0-322.0) ng/mL Lactate Dehydrogenase 745 H (313-618) U/L Total Protein 5.0 L (6.3-8.2) g/dL Albumin 2.6 L (3.5-5.0) g/dL Microbiology - Last 24 Hours (Table) 06/28/20 01:55 Blood Culture - Final Blood No Growth after 144 hours 06/28/20 01:10 Blood Culture - Final Blood No Growth after 144 hours
[2020-07-04] MEDS: CISATRACURIUM 200 MG in SODIUM CHLORIDE 0.9% 180 ML IV SCH (16:39)
[2020-07-04 17:40] LABS: Glucose,Whole Blood 148 mg/dL (75-99)
[2020-07-04] MEDS: ATORVASTATIN 80 MG TAB PO SCH (22:37)
[2020-07-04] MEDS: allopurinoL 300 MG TAB PO SCH (22:37)
[2020-07-04] MEDS: ASPIRIN 81 MG PO SCH (22:37)
[2020-07-04] MEDS: METOPROLOL TARTRATE 25 MG TAB PO SCH (22:38)
--- NOTE | 2020-07-04 23:39 | PCN ---
PROCEDURE NOTE DATE OF PROCEDURES: 06/29/2020. FIRST PROCEDURE: Placement of right femoral arterial line. PREOPERATIVE DIAGNOSIS: Frequent blood draws and blood gas monitoring. POSTOPERATIVE DIAGNOSIS: Frequent blood draws and blood gas monitoring. REGULATORY COMPLIANCE SPECIALIST: Dr. Beverly. PROCEDURE DESCRIPTION: There was informed consent and universal timeout verifying correct patient, procedure, site, positioning, and implant(s) or special equipment if applicable. Kamran's test was performed to ensure adequate perfusion. The patient's right groin was prepped and draped in sterile fashion. 1% Lidocaine was used to anesthetize the area. An 18G Arrow arterial line was introduced into the femoral artery. The catheter was threaded over the guide wire and the needle was removed with appropriate pulsatile blood return. Blood loss was minimal. The catheter was then sutured in place to the skin and a sterile dressing applied. Perfusion to the extremity distal to the point of catheter insertion was checked and found to be adequate. The patient tolerated the procedure well and there were no complications. There was good blood return and waveform. The catheter was sutured in place. A sterile dressing was applied by the nurse. There was no immediate complication. SECOND PROCEDURE: Left subclavian triple-lumen catheter. PREOPERATIVE DIAGNOSIS: Administration of fluids and pressors. POSTOPERATIVE DIAGNOSIS: Administration of fluids and pressors. REGULATORY COMPLIANCE SPECIALIST: Dr. Beverly. PROCEDURE DESCRIPTION: There was informed consent and universal timeout verifying correct patient, procedure, site, positioning, and implant(s) or special equipment if applicable. The patient was placed in a dependent position appropriate for triple lumen catheter placement based on the vein to be cannulated. The patient's left shoulder was prepped and draped in sterile fashion. 1% Lidocaine was used to anesthetize the surrounding skin area. A triple lumen 9F Cordis catheter was introduced into the left subclavian vein using Seldinger technique. The catheter was threaded smoothly over the guide wire and appropriate blood return was obtained. Each lumen of the catheter was evacuated of air and flushed with sterile saline. The catheter was then sutured in place to the skin and a sterile dressing applied. Perfusion to the extremity distal to the point of catheter insertion was checked and found to be adequate. There was good blood return from all 3 ports. The tip of catheter was noted to be in the right atrium. The catheter was sutured in place. Sterile dressing was applied by the nurse. There was no immediate complication. A chest x-ray was done to rule out pneumothorax. MMALEXANDRIA / JESN: [id number] /
[2020-07-05 00:10] LABS: Glucose,Whole Blood 179 mg/dL (75-99)
[2020-07-05] MEDS: CLEVIDIPINE BUTYRATE 25 MG in EMPTY BAG 1 BAG IV SCH ×4 (00:23→18:40)
[2020-07-05] MEDS: fentaNYL (PF) 1,000 MCG in SODIUM CHLORIDE 0.9% 80 ML IV SCH ×2 (00:24→10:11)
[2020-07-05] MEDS: INSULIN ASPART (NovoLOG) 100 UNIT/ML VIAL SQ SCH ×8 (00:24→18:19)
[2020-07-05] MEDS: methylPREDNISolone SOD SUCCI 125 MG/2 ML VIAL IV SCH ×4 (00:25→18:19)
[2020-07-05 05:10] LABS: ABG Base Excess 1.6 mmol/L; ABG HCO3 26 mmol/L (21-25); ABG Oxygen Saturation 86.3 % (94-97); ABG PCO2 42 mmHg (35-45); ABG TCO2 28 mmol/L (19-24); Allen Test Performed? Yes
[2020-07-05 05:16] LABS: ABG PO2 52 mmHg (83-108)
[2020-07-05 06:03] LABS: Basophils # (A) 0.1 k/uL (0-0.2); Basophils % (A) 1 %; Eosinophils % (A) 0 %; HCT 39.2 % (39.0-53.0); HGB 13.6 gm/dL (13.0-17.5); Lymphocytes # (A) 0.5 k/uL (1.0-4.8); Lymphocytes % (A) 4 %; MCH 30.7 pg (25.0-35.0); MCHC 34.8 g/dL (31.0-37.0); MCV 88.2 fL (80.0-100.0); Mean Platelet Volume 7.8; Monocytes # (A) 0.5 k/uL (0-1.0); Monocytes % (A) 4 %; Neutrophils # (A) 12.3 k/uL (1.3-7.7); Neutrophils % (A) 91 %; Platelet Count 292 k/uL (150-450); RBC 4.44 m/uL (4.30-5.90); WBC 13.6 k/uL (3.8-10.6)
[2020-07-05 06:31] LABS: Glucose,Whole Blood 177 mg/dL (75-99)
[2020-07-05] MEDS: LEVOTHYROXINE 75 MCG TAB PO SCH (06:38)
[2020-07-05] MEDS: SODIUM CHLORIDE 0.9% 1,000 ML IV SCH ×2 (06:40→22:56)
[2020-07-05] MEDS: INSULIN DETEMIR (LEVEMIR) 100 UNIT/ML SYR SQ SCH ×2 (08:12→21:22)
[2020-07-05] MEDS: METOPROLOL TARTRATE 25 MG TAB PO SCH ×3 (08:13→21:22)
[2020-07-05] MEDS: guaiFENesin 600 MG TABLET.ER PO SCH ×2 (08:13→21:22)
[2020-07-05] MEDS: CHOLECALCIFEROL 25 MCG (1000 IU) TABLET PO SCH (08:13)
[2020-07-05] MEDS: CHLORHEXIDINE GLUCONATE 15 ML CUP MUCOUS MEM SCH ×2 (08:13→21:22)
[2020-07-05] MEDS: amLODIPine 5 MG TAB PO SCH (08:13)
[2020-07-05] MEDS: PANTOPRAZOLE 40 MG/10 ML VIAL IVP SCH (08:13)
[2020-07-05] MEDS: ENOXAPARIN 40 MG/0.4 ML SYRINGE SQ SCH (08:13)
[2020-07-05] MEDS: PIOGLITAZONE 30 MG TAB PO SCH (08:14)
[2020-07-05] MEDS: ASCORBIC ACID 500 MG TAB PO SCH (08:14)
[2020-07-05] MEDS: MULTIVITAMINS, THERA 1 EACH TAB PO SCH (08:14)
[2020-07-05] MEDS: FENOFIBRATE 160 MG TAB PO SCH (08:14)
[2020-07-05] MEDS: ZINC SULFATE 220 MG CAP PO SCH (08:14)
[2020-07-05] MEDS: ALBUTEROL HFA INHALER INHALATION SCH ×4 (09:04→20:53)
--- NOTE | 2020-07-05 09:19 | XR ---
EXAMINATION TYPE: XR chest 1V portable DATE OF EXAM: 07/05/2020 COMPARISON: 07/04/2020 HISTORY: SOB, Follow Up FINDINGS: Indwelling tubes and catheters are unchanged. Improving perihilar and basilar infiltrates. Stable appearance of the cardio-mediastinal structures at this time. IMPRESSION: 1. Improving perihilar and basilar infiltrates.Clinical correlation and follow up until resolution i s recommended.
--- NOTE | 2020-07-05 10:11 | P.PN ---
Subjective Progress Note Date: 07/05/20 Principal diagnosis: Shortness of breath, cough. 80-year-old male, seen in the emergency department, on June 27. The patient came in complaining of weakness, fatigue, shortness of breath, chest congestion, and nonproductive cough. He's been sick for at least 2 weeks. He tells me he tested positive on Thursday but he actually may have tested positive on June 17. Currently, the patient's on 6 L nasal cannula. He is not receiving any IV fluids. He has a history of asthma, coronary artery disease, chest pain, angina, diabetes mellitus, hypertension, hyperlipidemia, osteoarthritis, pneumonia, hepatitis C, bursitis, and previous bypass grafting. The patient denies ever smoking cigarettes. Current lab data includes a white count 6.4, hematocrit 43.4, hemoglobin 14.7, and a platelet count of 186,000. PT, INR and PTT are normal. Sodium 135, potassium 4.3, chlorides 100, CO2 25, anion gap 10, BUN 28, creatinine 1.68. LDH is 730, C-reactive protein is 85.9. A d-dimer was not done. N-terminal proBNP was 522. A chest x-ray done in the emergency department shows bilateral patchy infiltrates, consistent with coronavirus pneumonia. Progress note dated 06/29/2020. This is a 80-year-old patient who I saw yesterday in the emergency department, in consultation. The patient was moved over to room 152, and I saw the patient this morning in the observation unit. Currently, the patient's quite short of breath. He is lying on his right side. His saturations are in the high 70s, on 15 L nasal cannula, and nonrebreather mask. Is getting saline at 75 mL an hour since I saw him yesterday, the patient states that he feeling more short of breath. Does cough. The cough causes pain in the chest. He's not coughing up any phlegm. No fever or chills. He denies any chest pain or pressure. White count was 11.2 and hemoglobin 14.8, hematocrit 45.5, platelet count 233,000. Chest x-ray shows bilateral patchy infiltrates. Because the patient was sick for such a long period of time, he was not a candidate for REM. The patient will be moved to the intensive care unit, we can be watched more closely. The patient in the end, may require intubation and mechanical ventilation. Progress note dated 07/02/2020. This is a patient that I initially saw in consultation on June 28. He was admitted to the hospital on June 27. He was intubated for acute respiratory failure on June 29. I moved him to the ICU on June 29, because I knew he was going to deteriorate. The patient did receive both convalescent plasma and TOCI. Currently, he remains on the volume assist control mode, rate 28, tidal volume 450, FiO2 60%, PEEP of 18. Arterial blood gases on the same settings, except FiO2 70%, shows a pO2 of 121, pCO2 of 49, pH is 7.31. The patient's on vital high protein at 30 mL an hour which is goal, Nimbex at 0.5 mcg/kg/m, propofol at 40 mcg/kg/m, fentanyl at 0.25 mcg/kg/h, and saline at 75 mL an hour. White count is 12.4, hemoglobin 13.1, hematocrit 38.8, platelet count 366,000. D-dimer is 0.45, sodium 140, potassium 4.7, chlorides 110, CO2 24, anion gap 6, BUN 44, and creatinine 1.25. LDH is 704. Chest x-ray shows diffuse pleural parenchymal changes, which are stable. Progress note dated 07/04/2020. The patient is again seen today. The patient is a room 259. He remains on the mechanical ventilator. He is on the volume assist control mode, rate of 28, tidal volume 450, FiO2 60%, he probably 18. Blood gases show pO2 61, pCO2 44, and a pH is 7.37. The patient's currently on Cleveprex at 2 mg an hour, propofol at 75 mcg/kg/m, fentanyl at 0.4 mcg/kg/h, saline at 75 mL an hour, and vital high protein at 10 mL an hour, which is goal. The patient has been weaned off the Nimbex. White count is 13.6, him from 13.8, hematocrit 39.7, platelet count 304,000. Most recent d-dimer is 0.73. Sed rate is 19. Blood gases have been noted. Current sodium is 141, potassium 4.6, chlorides 112, CO2 25, anion gap 4, BUN 43, creatinine 1.10. Calcium is 8.2. LDH 745. Chest x-rays consistent with diffuse bilateral airspace disease. Progress note dated 07/05/2020. The patient is again seen today in room 259. This is a 80-year-old gentleman with a history of hypoxemic respiratory failure. He is currently on the volume assist control mode, rate 28, tidal volume 450, FiO2 60%, PEEP of 18, which will be increased to 20. Arterial blood gases show a pO2 of 51, pCO2 42, and a pH is 7.4. This is on 18 of PEEP. The patient is currently on Cleveprex, at 2 mg an hour, propofol at 60 g kilogram per minute, fentanyl 0.6 mcg/kg per hour,vital high protein at 10 mL an hour, and saline at 75 mL an hour. White count is 13.6, hemoglobin hematocrit and platelet count are all normal. For some reason I do not see a metabolic profile on this patient. Chest x-ray shows bilateral infiltrates, which might be a bit improved. Objective - Vital Signs Vital signs: Vital Signs Temp 97.8 F 07/05/20 08:00 Pulse 46 L 07/05/20 09:00 Resp 28 H 07/05/20 09:00 BP 177/104 07/04/20 10:00 Pulse Ox 93 L 07/05/20 09:00 Intake & Output 07/04/20 07/05/20 07/05/20 18:59 06:59 18:59 Intake Total 1888.101 4792.133 294 Output Total 845 1265 325 Balance 771.739 491.133 -31 Weight 132.9 kg Intake: IV 936 936 234 Pressure bag 36 36 9 Sodium Chloride 0.9% 1, 900 900 225 000 ml @ 75 mls/hr IV . [id number] [facility] Rx#:[id number] Intake, IV Titration 420.739 610.133 Amount Clevidipine Butyrate 25 50.000 43.9 mg In Empty Bag 1 bag @ 1 MG/HR 2 mls/hr IV .Q24H [facility] Rx#:[id number] fentaNYL (PF) 1,000 mcg 96.684 79.642 In Sodium Chloride 0.9% 80 ml @ Per Protocol IV . Q0M [facility] Rx#:[id number] propofoL 1,000 mg In 274.055 486.591 Empty Bag 1 bag @ Titrate IV .Q0M [facility] Rx#: [id number] Tube Feeding 110 120 30 Other 150 90 30 Output: Urine 845 1265 325 Other: Voiding Method Indwelling Catheter Indwelling Catheter Indwelling Catheter ABP, PAP, CO, CI - Last Documented Arterial Blood Pressure 160/70 - Exam Sedated , currently intubated and mechanically ventilated. HEENT examination is grossly unremarkable. Neck supple. Full range of motion. No adenopathy thyromegaly or neck vein distention. Cardiovascular examination reveals regular rhythm rate. S1-S2 normal. No S3 or S4. No discernible murmur noted. Heart rate 46 bpm. Lungs reveal bilateral rhonchi and bilateral scattered crackles. There are no wheezes. Breath sounds equal bilaterally. Abdomen soft bowel sounds are heard. No masses or tenderness. Extremities are intact. No cyanosis clubbing or edema. Skin is without rash or lesion. Neurologic examination could not be assessed as the patient's is sedated. - Labs CBC & Chem 7: 07/05/20 04:45 07/04/20 05:10 Labs: Abnormal Lab Results - Last 24 Hours (Table) 07/04/20 07/04/20 07/04/20 Range/Units 05:10 11:32 17:39 WBC (3.8-10.6) k/uL Neutrophils # (1.3-7.7) k/uL Lymphocytes # (1.0-4.8) k/uL ABG pO2 (83-108) mmHg ABG HCO3 (21-25) mmol/L ABG Total CO2 (19-24) mmol/L ABG O2 Saturation (94-97) % POC Glucose (mg/dL) 166 H 148 H (75-99) mg/dL Ferritin 683.9 H (22.0-322.0) ng/mL 07/05/20 07/05/20 07/05/20 Range/Units 00:08 04:45 05:06 WBC 13.6 H (3.8-10.6) k/uL Neutrophils # 12.3 H (1.3-7.7) k/uL Lymphocytes # 0.5 L (1.0-4.8) k/uL ABG pO2 52 L* (83-108) mmHg ABG HCO3 26 H (21-25) mmol/L ABG Total CO2 28 H (19-24) mmol/L ABG O2 Saturation 86.3 L (94-97) % POC Glucose (mg/dL) 179 H (75-99) mg/dL Ferritin (22.0-322.0) ng/mL 07/05/20 Range/Units 06:19 WBC (3.8-10.6) k/uL Neutrophils # (1.3-7.7) k/uL Lymphocytes # (1.0-4.8) k/uL ABG pO2 (83-108) mmHg ABG HCO3 (21-25) mmol/L ABG Total CO2 (19-24) mmol/L ABG O2 Saturation (94-97) % POC Glucose (mg/dL) 177 H (75-99) mg/dL Ferritin (22.0-322.0) ng/mL Assessment and Plan Assessment: Acute hypoxemic respiratory failure secondary to COVID 19 pneumonia, with significantly worsening oxygenation, status post intubation on 06/29/2020. The patient has received both convalescent plasma and TOCI. History of chronic bronchial asthma. Lifelong nonsmoker. History of CAD, status post bypass grafting. History of diabetes mellitus. Hyperlipidemia by history. Hypertension. Hepatitis C. History of pneumonia. History of hypothyroidism. History of osteoarthritis. Plan: Plan dated 06/28/2020. The patient is not a candidate for REM. The patient should get vitamin C, vitamin D3, and zinc. In addition, we'll need to do a D-dimer test. The patient should also get corticosteroids. The patient should also be on a lacunar preferably Lovenox. Additional recommendations and suggestions are forthcoming. The patient is on Zosyn. Not sure why that is. We will check a pro-calcitonin level. If his low, should be discontinued. Additional recommendations and suggestions are forthcoming. We'll follow. Repeat chest x- ray in a day or 2, and inflammatory markers every 2 or 3 days. Prognosis is guarded. Plan dated 06/29/2020. The patient's oxygenation has significantly worsened in the last 24 hours. The patient is currently on a nonrebreather mask, and 15 L high flow oxygen. The patient's also receiving saline at 75 mL an hour. I'm going to move the patient to the intensive care unit for further monitoring and observation. He may require intubation and mechanical ventilation before the end of the day. I explained that to the patient. Additional recommendations suggestions are forthcoming. Prognosis is guarded. Chest x-ray and labs are reviewed. The pro-calcitonin level was only 0.12, and antibiotics will be discontinued. Plan dated 07/02/2020. The patient remains on appropriate medications. The patient's FiO2 was dropped from 70%, down to 60%. Additional recommendations and suggestions are forthcoming. Patient is currently sedated and paralyzed. We'll attempt to wean his sedatives down further. No additional recommendations are made. Prognosis is guarded. His chest x-ray is unchanged. Labs and medications are reviewed. Plan dated 07/04/2020. The patient remains on mechanical ventilator. The patient's on Cleveprex for blood pressure control. For sedation, the patient is on propofol, and for pain control, fentanyl. The Nimbex was weaned off yesterday. He remains on enteral nutrition, at goal. Labs, x-rays, and medications all reviewed. I'm hoping that we can progress to patient so that we can do a daily eruption of sedation. Prognosis is guarded. Because of pro-calcitonin level was low, antibiotics were discontinued. Medications are reviewed. Plan dated 07/05/2020. Currently, the patient seems to be reasonably stable. And actually, his chest x-ray may be slightly improved. The people be increased from 18 up to 20 cm water. The patient is being enterally fed. He is on Cleveprex for blood pressure control, is currently on both propofol and fentanyl. we will continue to see the patient on a daily basis, and make recommendations were appropriate. We will also do a daily interruption of sedation Time with Patient: Greater than 30
--- NOTE | 2020-07-05 11:39 | P.PN ---
Subjective Progress Note Date: 07/05/20 HISTORY OF PRESENT ILLNESS This is a 80-year-old male patient of Dr. 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 Patient states that he has had symptoms for 2 weeks which include body aches, shortness of breath coming foggy thinking. He denies any nausea, vomiting or diarrhea. He states he has had sputum production. He denies any lower extremity edema. Patient does not have home oxygen. Patient presented to [facility] emergency center for evaluation. Chest x-ray reveals bibasilar patchy opacities consistent with multifocal infection. No pleural effusions or pneumothorax. Temperature 100.1, heart rate 75, respiratory rate 24, blood pressure 125/63 and pulse ox 83% on room air. EKG was a sinus rhythm at 66 bpm. CBC was unremarkable except for lymphocytosis of 0.5. INR 1.0. Sodium 135, BUN 28 creatinine 1.68. Blood sugar 202. Lactic acid 1.6. Liver function tests were normal. LDH 730. C- reactive protein and a 5.9. ProBNP 522. 4/2: Patient is seen today on the observation unit as an overflow. Pulse ox is 84% on 15 L hyponasal cannula and nonrebreather. Patient seems to have more shortness of breath today and also complains of wheezing. No significant cough production. No fever or chills. No chest pain. WBC 11.2, hemoglobin 14.8, platelet count 233. Repeat chest x-ray reveals findings consistent with pneumonia. Pro-calcitonin 0.12. Blood sugars running in the 200s. Patient to be moved to the intensive care unit. 06/30: Patient declined significantly in the afternoon yesterday ended up on mechanical ventilation, he been sedated currently his marker are still quite bit high. Patient still required high demand O2 along with high PEEP of 15-20 to keep his pulse ox at the margin of 90 percentile. His blood sugars mildly elevated and still been managed on insulin, white blood cell is up to 13,000 today, his blood gas shows pO2 of 653 only. CO2 of 27 and pH of 7.31 creatinine has slightly improved since yesterday he C-reactive protein is up to 144 and LDH of 748. 4/4: Patient is still on mechanical ventilation is FiO2 is down to 70% still on PEEP of 18 I had long discussion with the and update her on with outpatient patient's condition still guarded this point his prognosis still not good but he has slight improvement compared to yesterday, his kidney function has improved slightly bit compared to yesterday as well. 07/02: Patient remains in the ICU. Patient is intubated and on mechanical ventilation with tidall volume 450,, FiO2 60%, PEEP of 18 which is improved from yesterday. He is pulse oxing 92-95%. He has been afebrile, heart rate in the 40s, respiratory rate 28, blood pressure 148/67. case monitor is sinus bradycardia. Repeat lab work reveals WBC 12.4, hemoglobin 13.1, platelet count 266. Sed rate 33. D-dimer 0.45. Sodium 140, potassium 4.7, chloride 110, CO2 24, BUN 44 and creatinine 0.25. Blood sugars running between 197 and 248. Ferritin 629.9. LDH 704. He is currently nothing by mouth. 07/03: Patient has been afebrile, heart rate 61, blood pressure 177/104, pulse ox 97%. Patient remains intubated and on mechanical ventilation with tidal volume 450, FiO2 60, PEEP of 18. Repeat blood work reveals WBC 15.9, hemoglobin 14.9, platelet count 341. Lymphocytes 0.5. Sodium 140, potassium 4.9, chloride 109, CO2 22, BUN 44 and creatinine 1. LDH 951. Liver function tests normal. Blood sugars running between 221 and 299. Levemir will be increased to 20 units twice daily and scheduled NovoLog will be increased to 7 units every 6 hours along with NovoLog scale continued. Tube feedings are at goal. Repeat chest x-ray reveals diffuse pleural parenchymal changes correlate for interstitial pneumonia is stable. Dr. Beverly has stopped Nimbex and Cleviprex. 07/04: Heart rate has been running in the 40s and Lopressor decreased from 50 mg twice daily to 25 mg twice daily and parameters to hold if heart rate is less than 55. Blood pressure is still been an issue and patient was weaned off Alan viprex. She remains intubated and on mechanical ventilation with tidal volume 520, FiO2 60, PEEP of 18. Blood sugar was still running high until this morning, this morning's blood sugar 194. Adjustments were made to his insulin yesterday and tube feeding dose decreased today. Will hold on making any further changes with insulins. Repeat blood work reveals sed rate of 90, d- dimer 0.73. Sodium 141, potassium 4.6, chloride 112, CO2 25, BUN 43, creatinine 1.10. Ferritin 683.9. LDH 745. Repeat chest x-ray reveals diffuse bilateral airspace disease stable correlate for diffuse pneumonia, ARDS versus pulmonary edema. 07/05: Patient remains intubated and on mechanical ventilation with tidal volume 450, FiO2 60 and PEEP of 20. Patient has been afebrile, heart rate in the 40s, respiratory rate 28, blood pressure 134/60, pulse ox 98%. Lopressor is not been given at a lower rate due to bradycardia. Repeat blood work reveals WBC 13.6, hemoglobin 13.6, platelet count 292. Blood sugars running between 148 and 179. REVIEW OF SYSTEMS Unable to obtain due to intubation, mechanical ventilation and sedation. PHYSICAL EXAMINATION Gen: This is a morbidly obese 80-year-old male. He is resting in ICU bed intubated and on mechanical ventilation, patient appears to be comfortable. HEENT: Head is atraumatic, normocephalic. Pupils equal, round. Sclerae is anicteric. NECK: Supple. No JVD. No lymphadenopathy. No thyromegaly. LUNGS: Clear to auscultation. No wheezes or rhonchi. No intercostal retractions. HEART: Regular rate and rhythm. No murmur. ABDOMEN: Soft. Bowel sounds are present. No masses. No tenderness. Tyler ca theter draining clear yannick urine. EXTREMITIES: No pedal edema. No calf tenderness. NEUROLOGICAL: Patient is unresponsive, sedated. ASSESSMENT AND PLAN 1. Acute hypoxic respiratory failure secondary to COVID19 Pneumonia. Continue mechanical ventilation. Continue Solu-Medrol 60 mg IV every 6 hours, Lovenox 40 mg daily, albuterol inhaler 2 puffs every 6 hours, vitamins C, vitamin D, zinc, Symbicort twice daily, continue current set up of his vent management patient is managed by fiber optics engineer. 2. Possible secondary bacterial gram-negative pneumonia ruledut by pulmonary medicine. 3. Acute kidney injury with chronic kidney disease stage III. Continue IV fluids 0.9 normal saline. Recheck lab work in the morning. Creatinine is down to 1.59 with slight improvement. 3. History of coronary artery disease status post CABG, stable. Continue aspirin 81 mg daily, Lipitor 80 mg at bedtime, Lopressor 50 mg twice daily. 4. Diabetes mellitus type 2, uncontrolled with hyperglycemia secondary to steroids. Continue Actos 30 mg daily, NovoLog scale before meals and at bedtime, continue Levemir 20 units twice daily, scheduled NovoLog 7 units every 6 hours. 5. Hypertension. Continue Lopressor, Norvasc 5 mg daily. Patient has been weaned off Cleviprex. 6. Hyperlipidemia. Continue atorvastatin and fenofibrate 7. Hypothyroidism. Continue levothyroxine 75 g daily. 8. Bradycardia. Lopressor decreased to 25 mg twice daily . 9. GI prophylaxis. Protonix. 9. DVT prophylaxis. Lovenox. Prognosis is guarded. Impression and plan of care have been directed as dictated by the signing physician. Mihaela Roberts nurse practitioner acting as scribe for signing physician. Objective - Vital Signs Vital signs: Vital Signs Temp 97.8 F 07/05/20 08:00 Pulse 46 L 07/05/20 10:00 Resp 28 H 07/05/20 10:00 BP 177/104 07/04/20 10:00 Pulse Ox 95 07/05/20 10:00 Intake & Output 07/04/20 07/05/20 07/05/20 18:59 06:59 18:59 Intake Total 6088.351 0015.133 482.132 Output Total 845 1265 325 Balance 771.739 491.133 157.132 Weight 132.9 kg Intake: IV 936 936 234 Pressure bag 36 36 9 Sodium Chloride 0.9% 1, 900 900 225 000 ml @ 75 mls/hr IV . [id number] [facility] Rx#:[id number] Intake, IV Titration 420.739 610.133 188.132 Amount Clevidipine Butyrate 25 50.000 43.9 39.333 mg In Empty Bag 1 bag @ 1 MG/HR 2 mls/hr IV .Q24H [facility] Rx#:[id number] fentaNYL (PF) 1,000 mcg 96.684 79.642 48.799 In Sodium Chloride 0.9% 80 ml @ Per Protocol IV . Q0M [facility] Rx#:[id number] propofoL 1,000 mg In 274.055 486.591 100 Empty Bag 1 bag @ Titrate IV .Q0M [facility] Rx#: [id number] Tube Feeding 110 120 30 Other 150 90 30 Output: Urine 845 1265 325 Other: Voiding Method Indwelling Catheter Indwelling Catheter Indwelling Catheter ABP, PAP, CO, CI - Last Documented Arterial Blood Pressure 152/67 - Labs CBC & Chem 7: 07/05/20 04:45 07/04/20 05:10 Labs: Abnormal Lab Results - Last 24 Hours (Table) 07/04/20 07/04/20 07/04/20 Range/Units 05:10 11:32 17:39 WBC (3.8-10.6) k/uL Neutrophils # (1.3-7.7) k/uL Lymphocytes # (1.0-4.8) k/uL ABG pO2 (83-108) mmHg ABG HCO3 (21-25) mmol/L ABG Total CO2 (19-24) mmol/L ABG O2 Saturation (94-97) % POC Glucose (mg/dL) 166 H 148 H (75-99) mg/dL Ferritin 683.9 H (22.0-322.0) ng/mL 07/05/20 07/05/20 07/05/20 Range/Units 00:08 04:45 05:06 WBC 13.6 H (3.8-10.6) k/uL Neutrophils # 12.3 H (1.3-7.7) k/uL Lymphocytes # 0.5 L (1.0-4.8) k/uL ABG pO2 52 L* (83-108) mmHg ABG HCO3 26 H (21-25) mmol/L ABG Total CO2 28 H (19-24) mmol/L ABG O2 Saturation 86.3 L (94-97) % POC Glucose (mg/dL) 179 H (75-99) mg/dL Ferritin (22.0-322.0) ng/mL 07/05/20 Range/Units 06:19 WBC (3.8-10.6) k/uL Neutrophils # (1.3-7.7) k/uL Lymphocytes # (1.0-4.8) k/uL ABG pO2 (83-108) mmHg ABG HCO3 (21-25) mmol/L ABG Total CO2 (19-24) mmol/L ABG O2 Saturation (94-97) % POC Glucose (mg/dL) 177 H (75-99) mg/dL Ferritin (22.0-322.0) ng/mL
[2020-07-05 11:59] LABS: Glucose,Whole Blood 169 mg/dL (75-99)
[2020-07-05 16:34] LABS: LD Isoenzymes 1 17 % (19-38); LD Isoenzymes 2 38 % (30-43); LD Isoenzymes 3 26 % (16-26); LD Isoenzymes 4 11 % (3-12); LD Isoenzymes 5 8 % (3-14); Lactacte Dehydrogenase(LD) ISO 217 U/L (120-250)
[2020-07-05] MEDS: CISATRACURIUM 200 MG in SODIUM CHLORIDE 0.9% 180 ML IV SCH (17:32)
[2020-07-05 18:07] LABS: Glucose,Whole Blood 161 mg/dL (75-99)
[2020-07-05] MEDS: allopurinoL 300 MG TAB PO SCH (21:21)
[2020-07-05] MEDS: ASPIRIN 81 MG PO SCH (21:22)
[2020-07-05] MEDS: ATORVASTATIN 80 MG TAB PO SCH (21:22)
[2020-07-06 00:19] LABS: Glucose,Whole Blood 185 mg/dL (75-99)
[2020-07-06] MEDS: INSULIN ASPART (NovoLOG) 100 UNIT/ML VIAL SQ SCH ×8 (00:54→18:10)
[2020-07-06] MEDS: methylPREDNISolone SOD SUCCI 125 MG/2 ML VIAL IV SCH ×4 (00:56→18:10)
[2020-07-06] MEDS: fentaNYL (PF) 1,000 MCG in SODIUM CHLORIDE 0.9% 80 ML IV SCH ×2 (03:38→12:25)
[2020-07-06 04:57] LABS: ABG Base Excess 1.5 mmol/L; ABG HCO3 26 mmol/L (21-25); ABG Oxygen Saturation 91.9 % (94-97); ABG PCO2 43 mmHg (35-45); ABG PH 7.39 (7.35-7.45); ABG PO2 65 mmHg (83-108); ABG TCO2 28 mmol/L (19-24); Allen Test Performed? Yes
[2020-07-06] MEDS: CLEVIDIPINE BUTYRATE 25 MG in EMPTY BAG 1 BAG IV SCH ×4 (05:10→16:32)
[2020-07-06 06:16] LABS: Calcium 8.3 mg/dL (8.4-10.2); Potassium 4.7 mmol/L (3.5-5.1)
[2020-07-06 06:21] LABS: Glucose,Whole Blood 187 mg/dL (75-99)
[2020-07-06 06:45] LABS: Basophils % (A) 0 %; Eosinophils % (A) 0 %; HCT 40.4 % (39.0-53.0); HGB 14.2 gm/dL (13.0-17.5); Lymphocytes # (A) 0.5 k/uL (1.0-4.8); Lymphocytes % (A) 4 %; MCH 31.1 pg (25.0-35.0); MCHC 35.2 g/dL (31.0-37.0); MCV 88.4 fL (80.0-100.0); Mean Platelet Volume 8.4; Monocytes # (A) 0.6 k/uL (0-1.0); Monocytes % (A) 4 %; Neutrophils % (A) 91 %; Platelet Count 292 k/uL (150-450); RBC 4.57 m/uL (4.30-5.90); RDW 14.2 % (11.5-15.5); WBC 14.2 k/uL (3.8-10.6)
[2020-07-06] MEDS: LEVOTHYROXINE 75 MCG TAB PO SCH (06:58)
[2020-07-06] MEDS: ALBUTEROL HFA INHALER INHALATION SCH ×4 (08:57→19:29)
[2020-07-06] MEDS: PANTOPRAZOLE 40 MG/10 ML VIAL IVP SCH (10:13)
[2020-07-06] MEDS: ASCORBIC ACID 500 MG TAB PO SCH (10:13)
[2020-07-06] MEDS: CHOLECALCIFEROL 25 MCG (1000 IU) TABLET PO SCH (10:13)
[2020-07-06] MEDS: guaiFENesin 600 MG TABLET.ER PO SCH ×2 (10:14→20:51)
[2020-07-06] MEDS: FENOFIBRATE 160 MG TAB PO SCH (10:14)
[2020-07-06] MEDS: ZINC SULFATE 220 MG CAP PO SCH (10:14)
[2020-07-06] MEDS: PIOGLITAZONE 30 MG TAB PO SCH (10:14)
[2020-07-06] MEDS: MULTIVITAMINS, THERA 1 EACH TAB PO SCH (10:14)
[2020-07-06] MEDS: CHLORHEXIDINE GLUCONATE 15 ML CUP MUCOUS MEM SCH ×2 (10:15→20:52)
[2020-07-06] MEDS: INSULIN DETEMIR (LEVEMIR) 100 UNIT/ML SYR SQ SCH ×2 (10:15→20:52)
[2020-07-06] MEDS: amLODIPine 5 MG TAB PO SCH (10:15)
[2020-07-06] MEDS: ENOXAPARIN 40 MG/0.4 ML SYRINGE SQ SCH (10:15)
[2020-07-06] MEDS: METOPROLOL TARTRATE 25 MG TAB PO SCH ×2 (10:16→20:53)
--- NOTE | 2020-07-06 10:46 | P.PN ---
Subjective Progress Note Date: 07/06/20 Principal diagnosis: Shortness of breath, cough. 80-year-old male, seen in the emergency department, on June 27. The patient came in complaining of weakness, fatigue, shortness of breath, chest congestion, and nonproductive cough. He's been sick for at least 2 weeks. He tells me he tested positive on Thursday but he actually may have tested positive on June 17. Currently, the patient's on 6 L nasal cannula. He is not receiving any IV fluids. He has a history of asthma, coronary artery disease, chest pain, angina, diabetes mellitus, hypertension, hyperlipidemia, osteoarthritis, pneumonia, hepatitis C, bursitis, and previous bypass grafting. The patient denies ever smoking cigarettes. Current lab data includes a white count 6.4, hematocrit 43.4, hemoglobin 14.7, and a platelet count of 186,000. PT, INR and PTT are normal. Sodium 135, potassium 4.3, chlorides 100, CO2 25, anion gap 10, BUN 28, creatinine 1.68. LDH is 730, C-reactive protein is 85.9. A d-dimer was not done. N-terminal proBNP was 522. A chest x-ray done in the emergency department shows bilateral patchy infiltrates, consistent with coronavirus pneumonia. Progress note dated 06/29/2020. This is a 80-year-old patient who I saw yesterday in the emergency department, in consultation. The patient was moved over to room 152, and I saw the patient this morning in the observation unit. Currently, the patient's quite short of breath. He is lying on his right side. His saturations are in the high 70s, on 15 L nasal cannula, and nonrebreather mask. Is getting saline at 75 mL an hour since I saw him yesterday, the patient states that he feeling more short of breath. Does cough. The cough causes pain in the chest. He's not coughing up any phlegm. No fever or chills. He denies any chest pain or pressure. White count was 11.2 and hemoglobin 14.8, hematocrit 45.5, platelet count 233,000. Chest x-ray shows bilateral patchy infiltrates. Because the patient was sick for such a long period of time, he was not a candidate for REM. The patient will be moved to the intensive care unit, we can be watched more closely. The patient in the end, may require intubation and mechanical ventilation. Progress note dated 07/02/2020. This is a patient that I initially saw in consultation on June 28. He was admitted to the hospital on June 27. He was intubated for acute respiratory failure on June 29. I moved him to the ICU on June 29, because I knew he was going to deteriorate. The patient did receive both convalescent plasma and TOCI. Currently, he remains on the volume assist control mode, rate 28, tidal volume 450, FiO2 60%, PEEP of 18. Arterial blood gases on the same settings, except FiO2 70%, shows a pO2 of 121, pCO2 of 49, pH is 7.31. The patient's on vital high protein at 30 mL an hour which is goal, Nimbex at 0.5 mcg/kg/m, propofol at 40 mcg/kg/m, fentanyl at 0.25 mcg/kg/h, and saline at 75 mL an hour. White count is 12.4, hemoglobin 13.1, hematocrit 38.8, platelet count 366,000. D-dimer is 0.45, sodium 140, potassium 4.7, chlorides 110, CO2 24, anion gap 6, BUN 44, and creatinine 1.25. LDH is 704. Chest x-ray shows diffuse pleural parenchymal changes, which are stable. Progress note dated 07/04/2020. The patient is again seen today. The patient is a room 259. He remains on the mechanical ventilator. He is on the volume assist control mode, rate of 28, tidal volume 450, FiO2 60%, he probably 18. Blood gases show pO2 61, pCO2 44, and a pH is 7.37. The patient's currently on Cleveprex at 2 mg an hour, propofol at 75 mcg/kg/m, fentanyl at 0.4 mcg/kg/h, saline at 75 mL an hour, and vital high protein at 10 mL an hour, which is goal. The patient has been weaned off the Nimbex. White count is 13.6, him from 13.8, hematocrit 39.7, platelet count 304,000. Most recent d-dimer is 0.73. Sed rate is 19. Blood gases have been noted. Current sodium is 141, potassium 4.6, chlorides 112, CO2 25, anion gap 4, BUN 43, creatinine 1.10. Calcium is 8.2. LDH 745. Chest x-rays consistent with diffuse bilateral airspace disease. Progress note dated 07/05/2020. The patient is again seen today in room 259. This is a 80-year-old gentleman with a history of hypoxemic respiratory failure. He is currently on the volume assist control mode, rate 28, tidal volume 450, FiO2 60%, PEEP of 18, which will be increased to 20. Arterial blood gases show a pO2 of 51, pCO2 42, and a pH is 7.4. This is on 18 of PEEP. The patient is currently on Cleveprex, at 2 mg an hour, propofol at 60 g kilogram per minute, fentanyl 0.6 mcg/kg per hour,vital high protein at 10 mL an hour, and saline at 75 mL an hour. White count is 13.6, hemoglobin hematocrit and platelet count are all normal. For some reason I do not see a metabolic profile on this patient. Chest x-ray shows bilateral infiltrates, which might be a bit improved. Progress note dated 07/06/2020. Again, the patient is seen in room 259. 80-year-old male with a history of hyp oxemic respiratory failure. He remains on the mechanical ventilator. His settings include the volume assist control mode, rate 28, tidal volume 450, FiO2 60%, and PEEP of 20. Blood gases are borderline, with a pO2 of 65, pCO2 43, and a pH of 7.39. The patient's on saline at 75 mL an hour, propofol at 60 mcg/kg/m, fentanyl 0.6 mcg/kg/h, Cleveprex 5 mg an hour, and vital high protein at 10 mL an hour, which is goal. The chest x-ray this morning had not yet been done. White count 14.2, hemoglobin hematocrit and platelet count all normal. Sodium 139, potassium 4.7, chlorides 109, CO2 24, anion gap 6, BUN 48, and creatinine 0.97. Objective - Vital Signs Vital signs: Vital Signs Temp 8.6 F L 07/06/20 04:00 Pulse 46 L 07/06/20 07:00 Resp 22 07/06/20 07:00 BP 177/104 07/05/20 15:00 Pulse Ox 98 07/06/20 07:00 Intake & Output 0407/06/20 07/06/20 18:59 06:59 18:59 Intake Total 2260.402 2240.523 188 Output Total 935 1010 125 Balance 616.311 868.523 63 Weight 136.4 kg Intake: IV 936 951 78 Pressure bag 36 51 3 Sodium Chloride 0.9% 1, 900 900 75 000 ml @ 75 mls/hr IV . [id number] NAEEM Rx#:[id number] Intake, IV Titration 445.311 687.523 100 Amount Clevidipine Butyrate 25 90.133 99.9 mg In Empty Bag 1 bag @ 1 MG/HR 2 mls/hr IV .Q24H NAEEM Rx#:[id number] fentaNYL (PF) 1,000 mcg 48.799 87.623 In Sodium Chloride 0.9% 80 ml @ Per Protocol IV . Q0M NAEEM Rx#:[id number] propofoL 1,000 mg In 306.379 500 100 Empty Bag 1 bag @ Titrate IV .Q0M NAEEM Rx#: [id number] Tube Feeding 110 120 10 Other 60 120 Output: Urine 935 1010 125 Other: Voiding Method Indwelling Catheter Indwelling Catheter ABP, PAP, CO, CI - Last Documented Arterial Blood Pressure 113/61 - Exam Sedated , currently intubated and mechanically ventilated. There is an orally placed endotracheal tube. HEENT examination is grossly unremarkable. Neck supple. Full range of motion. No adenopathy thyromegaly or neck vein distention. Cardiovascular examination reveals regular rhythm rate. S1-S2 normal. No S3 or S4. No discernible murmur noted. Heart rate 46 bpm. Lungs reveal bilateral rhonchi and bilateral scattered crackles. There are no wheezes. Breath sounds equal bilaterally. Abdomen soft bowel sounds are heard. No masses or tenderness. Extremities are intact. No cyanosis clubbing or edema. Skin is without rash or lesion. Neurologic examination could not be assessed as the patient's is sedated. - Labs CBC & Chem 7: 07/06/20 05:10 07/06/20 05:10 Labs: Abnormal Lab Results - Last 24 Hours (Table) 07/02/20 07/05/20 07/05/20 Range/Units 04:00 11:55 18:05 WBC (3.8-10.6) k/uL Neutrophils # (1.3-7.7) k/uL Lymphocytes # (1.0-4.8) k/uL ABG pO2 (83-108) mmHg ABG HCO3 (21-25) mmol/L ABG Total CO2 (19-24) mmol/L ABG O2 Saturation (94-97) % Chloride (98-107) mmol/L BUN (9-20) mg/dL Glucose (74-99) mg/dL POC Glucose (mg/dL) 169 H 161 H (75-99) mg/dL Calcium (8.4-10.2) mg/dL LD 1 17 L (19-38) % 07/06/20 07/06/20 07/06/20 Range/Units 00:18 04:48 05:10 WBC 14.2 H (3.8-10.6) k/uL Neutrophils # 13.0 H (1.3-7.7) k/uL Lymphocytes # 0.5 L (1.0-4.8) k/uL ABG pO2 65 L (83-108) mmHg ABG HCO3 26 H (21-25) mmol/L ABG Total CO2 28 H (19-24) mmol/L ABG O2 Saturation 91.9 L (94-97) % Chloride (98-107) mmol/L BUN (9-20) mg/dL Glucose (74-99) mg/dL POC Glucose (mg/dL) 185 H (75-99) mg/dL Calcium (8.4-10.2) mg/dL LD 1 (19-38) % 07/06/20 07/06/20 Range/Units 05:10 06:10 WBC (3.8-10.6) k/uL Neutrophils # (1.3-7.7) k/uL Lymphocytes # (1.0-4.8) k/uL ABG pO2 (83-108) mmHg ABG HCO3 (21-25) mmol/L ABG Total CO2 (19-24) mmol/L ABG O2 Saturation (94-97) % Chloride 109 H (98-107) mmol/L BUN 48 H (9-20) mg/dL Glucose 165 H (74-99) mg/dL POC Glucose (mg/dL) 187 H (75-99) mg/dL Calcium 8.3 L (8.4-10.2) mg/dL LD 1 (19-38) % Assessment and Plan Assessment: Acute hypoxemic respiratory failure secondary to COVID 19 pneumonia, with significantly worsening oxygenation, status post intubation on 06/29/2020. The patient has received both convalescent plasma and TOCI. History of chronic bronchial asthma. Lifelong nonsmoker. History of CAD, status post bypass grafting. History of diabetes mellitus. Hyperlipidemia by history. Hypertension. Hepatitis C. History of pneumonia. History of hypothyroidism. History of osteoarthritis. Plan: Plan dated 06/28/2020. The patient is not a candidate for REM. The patient should get vitamin C, vitamin D3, and zinc. In addition, we'll need to do a D-dimer test. The patient should also get corticosteroids. The patient should also be on a lacunar preferably Lovenox. Additional recommendations and suggestions are forthcoming. The patient is on Zosyn. Not sure why that is. We will check a pro-calcitonin level. If his low, should be discontinued. Additional recommendations and suggestions are forthcoming. We'll follow. Repeat chest x- ray in a day or 2, and inflammatory markers every 2 or 3 days. Prognosis is guarded. Plan dated 06/29/2020. The patient's oxygenation has significantly worsened in the last 24 hours. The patient is currently on a nonrebreather mask, and 15 L high flow oxygen. The patient's also receiving saline at 75 mL an hour. I'm going to move the patient to the intensive care unit for further monitoring and observation. He may require intubation and mechanical ventilation before the end of the day. I explained that to the patient. Additional recommendations suggestions are forthcoming. Prognosis is guarded. Chest x-ray and labs are reviewed. The pro-calcitonin level was only 0.12, and antibiotics will be discontinued. Plan dated 07/02/2020. The patient remains on appropriate medications. The patient's FiO2 was dropped from 70%, down to 60%. Additional recommendations and suggestions are forthcoming. Patient is currently sedated and paralyzed. We'll attempt to wean his sedatives down further. No additional recommendations are made. Prognosis is guarded. His chest x-ray is unchanged. Labs and medications are reviewed. Plan dated 07/04/2020. The patient remains on mechanical ventilator. The patient's on Cleveprex for blood pressure control. For sedation, the patient is on propofol, and for pain control, fentanyl. The Nimbex was weaned off yesterday. He remains on enteral nutrition, at goal. Labs, x-rays, and medications all reviewed. I'm hoping that we can progress to patient so that we can do a daily eruption of sedation. Prognosis is guarded. Because of pro-calcitonin level was low, antibiotics were discontinued. Medications are reviewed. Plan dated 07/05/2020. Currently, the patient seems to be reasonably stable. And actually, his chest x-ray may be slightly improved. The people be increased from 18 up to 20 cm water. The patient is being enterally fed. He is on Cleveprex for blood pressure control, is currently on both propofol and fentanyl. we will continue to see the patient on a daily basis, and make recommendations were appropriate. We will also do a daily interruption of sedation Plan dated 07/06/2020. The patient had an uneventful night last night. Nothing was reported to the nurses this morning in terms of any issues last night. The patient remains on propofol and fentanyl and Cleveprex for blood pressure control. A chest x-ray has not yet been done. He will be ordered. Additional recommendations and suggestions are forthcoming. Prognosis is guarded. The patient may eventually end up with a tracheostomy and PEG tube. We will eventually have to talk to the family about that. We will continue with albuterol inhaler, vitamin C, vitamin D3, and zinc. We'll also continue with Lovenox, and corticosteroids. Time with Patient: Greater than 30
--- NOTE | 2020-07-06 11:34 | XR ---
EXAMINATION TYPE: XR chest 1V portable DATE OF EXAM: 07/06/2020 COMPARISON: 07/05/2020 HISTORY: Shortness of breath TECHNIQUE: Single frontal view of the chest is obtained. FINDINGS: ET tube, NG tube, and central line stable. Heart enlarged. Postsurgical changes with degen erative change of the spine. Diffuse bilateral interstitial pattern with basilar subsegmental areas o f consolidation stable. No significant interval change. IMPRESSION: 1. Diffuse interstitial infiltrates are stable unchanged from prior exam.
[2020-07-06 12:41] LABS: Glucose,Whole Blood 150 mg/dL (75-99)
--- NOTE | 2020-07-06 12:42 | P.PN ---
Subjective Progress Note Date: 07/06/20 HISTORY OF PRESENT ILLNESS This is a 80-year-old male patient of Dr. 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 Patient states that he has had symptoms for 2 weeks which include body aches, shortness of breath coming foggy thinking. He denies any nausea, vomiting or diarrhea. He states he has had sputum production. He denies any lower extremity edema. Patient does not have home oxygen. Patient presented to [facility] emergency center for evaluation. Chest x-ray reveals bibasilar patchy opacities consistent with multifocal infection. No pleural effusions or pneumothorax. Temperature 100.1, heart rate 75, respiratory rate 24, blood pressure 125/63 and pulse ox 83% on room air. EKG was a sinus rhythm at 66 bpm. CBC was unremarkable except for lymphocytosis of 0.5. INR 1.0. Sodium 135, BUN 28 creatinine 1.68. Blood sugar 202. Lactic acid 1.6. Liver function tests were normal. LDH 730. C- reactive protein and a 5.9. ProBNP 522. 4/2: Patient is seen today on the observation unit as an overflow. Pulse ox is 84% on 15 L hyponasal cannula and nonrebreather. Patient seems to have more shortness of breath today and also complains of wheezing. No significant cough production. No fever or chills. No chest pain. WBC 11.2, hemoglobin 14.8, platelet count 233. Repeat chest x-ray reveals findings consistent with pneumonia. Pro-calcitonin 0.12. Blood sugars running in the 200s. Patient to be moved to the intensive care unit. 06/30: Patient declined significantly in the afternoon yesterday ended up on mechanical ventilation, he been sedated currently his marker are still quite bit high. Patient still required high demand O2 along with high PEEP of 15-20 to keep his pulse ox at the margin of 90 percentile. His blood sugars mildly elevated and still been managed on insulin, white blood cell is up to 13,000 today, his blood gas shows pO2 of 653 only. CO2 of 27 and pH of 7.31 creatinine has slightly improved since yesterday he C-reactive protein is up to 144 and LDH of 748. 4/4: Patient is still on mechanical ventilation is FiO2 is down to 70% still on PEEP of 18 I had long discussion with the and update her on with outpatient patient's condition still guarded this point his prognosis still not good but he has slight improvement compared to yesterday, his kidney function has improved slightly bit compared to yesterday as well. 07/02: Patient remains in the ICU. Patient is intubated and on mechanical ventilation with tidall volume 450,, FiO2 60%, PEEP of 18 which is improved from yesterday. He is pulse oxing 92-95%. He has been afebrile, heart rate in the 40s, respiratory rate 28, blood pressure 148/67. monitor worker is sinus bradycardia. Repeat lab work reveals WBC 12.4, hemoglobin 13.1, platelet count 266. Sed rate 33. D-dimer 0.45. Sodium 140, potassium 4.7, chloride 110, CO2 24, BUN 44 and creatinine 0.25. Blood sugars running between 197 and 248. Ferritin 629.9. LDH 704. He is currently nothing by mouth. 07/03: Patient has been afebrile, heart rate 61, blood pressure 177/104, pulse ox 97%. Patient remains intubated and on mechanical ventilation with tidal volume 450, FiO2 60, PEEP of 18. Repeat blood work reveals WBC 15.9, hemoglobin 14.9, platelet count 341. Lymphocytes 0.5. Sodium 140, potassium 4.9, chloride 109, CO2 22, BUN 44 and creatinine 1. LDH 951. Liver function tests normal. Blood sugars running between 221 and 299. Levemir will be increased to 20 units twice daily and scheduled NovoLog will be increased to 7 units every 6 hours along with NovoLog scale continued. Tube feedings are at goal. Repeat chest x-ray reveals diffuse pleural parenchymal changes correlate for interstitial pneumonia is stable. Dr. Beverly has stopped Nimbex and Cleviprex. 07/04: Heart rate has been running in the 40s and Lopressor decreased from 50 mg twice daily to 25 mg twice daily and parameters to hold if heart rate is less than 55. Blood pressure is still been an issue and patient was weaned off Alan viprex. She remains intubated and on mechanical ventilation with tidal volume 520, FiO2 60, PEEP of 18. Blood sugar was still running high until this morning, this morning's blood sugar 194. Adjustments were made to his insulin yesterday and tube feeding dose decreased today. Will hold on making any further changes with insulins. Repeat blood work reveals sed rate of 90, d- dimer 0.73. Sodium 141, potassium 4.6, chloride 112, CO2 25, BUN 43, creatinine 1.10. Ferritin 683.9. LDH 745. Repeat chest x-ray reveals diffuse bilateral airspace disease stable correlate for diffuse pneumonia, ARDS versus pulmonary edema. 07/05: Patient remains intubated and on mechanical ventilation with tidal volume 450, FiO2 60 and PEEP of 20. Patient has been afebrile, heart rate in the 40s, respiratory rate 28, blood pressure 134/60, pulse ox 98%. Lopressor is not been given at a lower rate due to bradycardia. Repeat blood work reveals WBC 13.6, hemoglobin 13.6, platelet count 292. Blood sugars running between 148 and 179. 07/06: Patient remains in the intensive care unit intubated and on mechanical ventilation with tidal volume 450, FiO2 60, PEEP of 20. He is on propofol and fentanyl. He is also currently on Cleviprex. Repeat chest x-ray reveals diffuse interstitial infiltrates are stable. WBC 14.2, hemoglobin 14.2, platelet count 292. Creatinine 0.97 and BUN 48. Blood sugars running between 165 an 187. Patient may require PEG tube and trach. REVIEW OF SYSTEMS Unable to obtain due to intubation, mechanical ventilation and sedation. PHYSICAL EXAMINATION Gen: This is a morbidly obese 80-year-old male. He is resting in ICU bed intubated and on mechanical ventilation, patient appears to be comfortable. HEENT: Head is atraumatic, normocephalic. Pupils equal, round. Sclerae is anicteric. NECK: Supple. No JVD. No lymphadenopathy. No thyromegaly. LUNGS: Bilateral rhonchi. No wheezes. No intercostal retractions. HEART: Regular rate and rhythm. No murmur. ABDOMEN: Soft. Bowel sounds are present. No masses. No tenderness. Tyler catheter draining clear yannick urine. EXTREMITIES: No pedal edema. No calf tenderness. NEUROLOGICAL: Patient is unresponsive, sedated. ASSESSMENT AND PLAN 1. Acute hypoxic respiratory failure secondary to COVID19 Pneumonia. Continue mechanical ventilation. 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 2. Possible secondary bacterial gram-negative pneumonia ruled out by pulmonary medicine. 3. Acute kidney injury with chronic kidney disease stage III. 3. History of coronary artery disease status post CABG, stable. Continue aspirin 81 mg daily, Lipitor 80 mg at bedtime, Lopressor 25 mg twice daily. 4. Diabetes mellitus type 2, uncontrolled with hyperglycemia secondary to steroids. Continue Actos 30 mg daily, NovoLog scale before meals and at bedtime, continue Levemir 20 units twice daily, scheduled NovoLog 7 units every 6 hours. 5. Hypertension. Continue Lopressor, Norvasc 5 mg daily. Continue Cleviprex. 6. Hyperlipidemia. Continue atorvastatin and fenofibrate 7. Hypothyroidism. Continue levothyroxine 75 g daily. 8. Bradycardia. Lopressor decreased to 25 mg twice daily . 9. GI prophylaxis. Protonix. 9. DVT prophylaxis. Lovenox. Prognosis is guarded. Impression and plan of care have been directed as dictated by the signing physician. Mihaela Roberts nurse practitioner acting as scribe for signing physician. Objective - Vital Signs Vital signs: Vital Signs Temp 8.6 F L 07/06/20 04:00 Pulse 46 L 07/06/20 07:00 Resp 22 07/06/20 07:00 BP 177/104 07/05/20 15:00 Pulse Ox 98 07/06/20 07:00 Intake & Output 07/05/20 07/06/20 07/06/20 18:59 06:59 18:59 Intake Total 9720.633 2107.523 188 Output Total 935 1010 125 Balance 616.311 868.523 63 Weight 136.4 kg Intake: IV 936 951 78 Pressure bag 36 51 3 Sodium Chloride 0.9% 1, 900 900 75 000 ml @ 75 mls/hr IV . [id number] NAEEM Rx#:[id number] Intake, IV Titration 445.311 687.523 100 Amount Clevidipine Butyrate 25 90.133 99.9 mg In Empty Bag 1 bag @ 1 MG/HR 2 mls/hr IV .Q24H NAEEM Rx#:[id number] fentaNYL (PF) 1,000 mcg 48.799 87.623 In Sodium Chloride 0.9% 80 ml @ Per Protocol IV . Q0M NAEEM Rx#:[id number] propofoL 1,000 mg In 306.379 500 100 Empty Bag 1 bag @ Titrate IV .Q0M NAEEM Rx#: [id number] Tube Feeding 110 120 10 Other 60 120 Output: Urine 935 1010 125 Other: Voiding Method Indwelling Catheter Indwelling Catheter ABP, PAP, CO, CI - Last Documented Arterial Blood Pressure 113/61 - Labs CBC & Chem 7: 07/06/20 05:10 07/06/20 05:10 Labs: Abnormal Lab Results - Last 24 Hours (Table) 07/02/20 07/05/20 07/05/20 Range/Units 04:00 11:55 18:05 WBC (3.8-10.6) k/uL Neutrophils # (1.3-7.7) k/uL Lymphocytes # (1.0-4.8) k/uL ABG pO2 (83-108) mmHg ABG HCO3 (21-25) mmol/L ABG Total CO2 (19-24) mmol/L ABG O2 Saturation (94-97) % Chloride (98-107) mmol/L BUN (9-20) mg/dL Glucose (74-99) mg/dL POC Glucose (mg/dL) 169 H 161 H (75-99) mg/dL Calcium (8.4-10.2) mg/dL LD 1 17 L (19-38) % 07/06/20 07/06/20 07/06/20 Range/Units 00:18 04:48 05:10 WBC 14.2 H (3.8-10.6) k/uL Neutrophils # 13.0 H (1.3-7.7) k/uL Lymphocytes # 0.5 L (1.0-4.8) k/uL ABG pO2 65 L (83-108) mmHg ABG HCO3 26 H (21-25) mmol/L ABG Total CO2 28 H (19-24) mmol/L ABG O2 Saturation 91.9 L (94-97) % Chloride (98-107) mmol/L BUN (9-20) mg/dL Glucose (74-99) mg/dL POC Glucose (mg/dL) 185 H (75-99) mg/dL Calcium (8.4-10.2) mg/dL LD 1 (19-38) % 07/06/20 07/06/20 Range/Units 05:10 06:10 WBC (3.8-10.6) k/uL Neutrophils # (1.3-7.7) k/uL Lymphocytes # (1.0-4.8) k/uL ABG pO2 (83-108) mmHg ABG HCO3 (21-25) mmol/L ABG Total CO2 (19-24) mmol/L ABG O2 Saturation (94-97) % Chloride 109 H (98-107) mmol/L BUN 48 H (9-20) mg/dL Glucose 165 H (74-99) mg/dL POC Glucose (mg/dL) 187 H (75-99) mg/dL Calcium 8.3 L (8.4-10.2) mg/dL LD 1 (19-38) %
[2020-07-06] MEDS: SODIUM CHLORIDE 0.9% 1,000 ML IV SCH (12:51)
[2020-07-06 17:42] LABS: Glucose,Whole Blood 156 mg/dL (75-99)
[2020-07-06] MEDS: CISATRACURIUM 200 MG in SODIUM CHLORIDE 0.9% 180 ML IV SCH (17:55)
[2020-07-06 19:40] LABS: LD Isoenzymes 1 15 % (19-38); LD Isoenzymes 2 29 % (30-43); LD Isoenzymes 3 21 % (16-26); LD Isoenzymes 4 14 % (3-12); LD Isoenzymes 5 21 % (3-14); Lactacte Dehydrogenase(LD) ISO 337 U/L (120-250)
[2020-07-06] MEDS: ASPIRIN 81 MG PO SCH (20:51)
[2020-07-06] MEDS: allopurinoL 300 MG TAB PO SCH (20:51)
[2020-07-06] MEDS: ATORVASTATIN 80 MG TAB PO SCH (20:52)
[2020-07-07] MEDS: methylPREDNISolone SOD SUCCI 125 MG/2 ML VIAL IV SCH ×5 (00:24→23:57)
[2020-07-07 00:34] LABS: Glucose,Whole Blood 168 mg/dL (75-99)
[2020-07-07] MEDS: fentaNYL (PF) 1,000 MCG in SODIUM CHLORIDE 0.9% 80 ML IV SCH ×2 (01:47→12:25)
[2020-07-07 02:37] LABS: Glucose,Whole Blood 168 mg/dL (75-99)
[2020-07-07] MEDS: INSULIN ASPART (NovoLOG) 100 UNIT/ML VIAL SQ SCH ×10 (03:02→23:58)
[2020-07-07] MEDS: CLEVIDIPINE BUTYRATE 25 MG in EMPTY BAG 1 BAG IV SCH ×4 (03:07→20:16)
[2020-07-07 05:36] LABS: Glucose,Whole Blood 146 mg/dL (75-99)
[2020-07-07 06:14] LABS: ALT 24 U/L (4-49); AST 29 U/L (17-59); African American GFR (CKD) >90 (>60 ml/min/1.73 sqM); Albumin 1.9 g/dL (3.5-5.0); Alkaline Phosphatase 41 U/L (38-126); Anion Gap 1 mmol/L; Blood Urea Nitrogen 41 mg/dL (9-20); C Reactive Protein 7.9 mg/L (<10.0); Calcium 6.7 mg/dL (8.4-10.2); Carbon Dioxide 22 mmol/L (22-30); Chloride 114 mmol/L (98-107); Creatine Kinase 52 U/L (55-170); Glucose 142 mg/dL (74-99); Non-African American GFR(CKD) 83 (>60 ml/min/1.73 sqM); Potassium 3.7 mmol/L (3.5-5.1); Sodium 137 mmol/L (137-145); Total Bilirubin 0.4 mg/dL (0.2-1.3); Total Protein 3.8 g/dL (6.3-8.2)
[2020-07-07 06:15] LABS: Basophils % (A) 0 %; Eosinophils % (A) 0 %; HCT 35.3 % (39.0-53.0); HGB 12.3 gm/dL (13.0-17.5); Lymphocytes # (A) 0.4 k/uL (1.0-4.8); Lymphocytes % (A) 4 %; MCH 30.9 pg (25.0-35.0); MCV 88.5 fL (80.0-100.0); Mean Platelet Volume 8.2; Monocytes # (A) 0.4 k/uL (0-1.0); Monocytes % (A) 4 %; Neutrophils # (A) 8.2 k/uL (1.3-7.7); Neutrophils % (A) 90 %; Platelet Count 244 k/uL (150-450); RBC 3.99 m/uL (4.30-5.90); RDW 14.7 % (11.5-15.5); WBC 9.1 k/uL (3.8-10.6)
[2020-07-07 06:23] LABS: ABG Base Excess 2.2 mmol/L; ABG HCO3 27 mmol/L (21-25); ABG PCO2 46 mmHg (35-45); ABG PH 7.38 (7.35-7.45); ABG PO2 151 mmHg (83-108); ABG TCO2 29 mmol/L (19-24); Allen Test Performed? Yes
[2020-07-07] MEDS: ALBUTEROL HFA INHALER INHALATION SCH ×4 (08:25→20:40)
[2020-07-07] MEDS: INSULIN DETEMIR (LEVEMIR) 100 UNIT/ML SYR SQ SCH ×2 (08:40→20:50)
[2020-07-07] MEDS: ENOXAPARIN 40 MG/0.4 ML SYRINGE SQ SCH (08:40)
[2020-07-07] MEDS: PIOGLITAZONE 30 MG TAB PO SCH (08:41)
[2020-07-07] MEDS: ASCORBIC ACID 500 MG TAB PO SCH (08:41)
[2020-07-07] MEDS: ZINC SULFATE 220 MG CAP PO SCH (08:41)
[2020-07-07] MEDS: guaiFENesin 600 MG TABLET.ER PO SCH ×2 (08:41→20:50)
[2020-07-07] MEDS: amLODIPine 5 MG TAB PO SCH (08:42)
[2020-07-07] MEDS: CHOLECALCIFEROL 25 MCG (1000 IU) TABLET PO SCH (08:42)
[2020-07-07] MEDS: MULTIVITAMINS, THERA 1 EACH TAB PO SCH (08:42)
[2020-07-07] MEDS: FENOFIBRATE 160 MG TAB PO SCH (08:42)
[2020-07-07] MEDS: CHLORHEXIDINE GLUCONATE 15 ML CUP MUCOUS MEM SCH ×2 (08:43→20:50)
[2020-07-07] MEDS: METOPROLOL TARTRATE 25 MG TAB PO SCH ×2 (08:44→20:51)
[2020-07-07] MEDS: SODIUM CHLORIDE 0.9% 1,000 ML IV SCH ×3 (09:55→23:59)
[2020-07-07] MEDS: PANTOPRAZOLE 40 MG/10 ML VIAL IVP SCH (09:57)
[2020-07-07] MEDS: LEVOTHYROXINE 75 MCG TAB PO SCH (10:38)
--- NOTE | 2020-07-07 11:05 | XR ---
EXAMINATION TYPE: XR chest 1V portable DATE OF EXAM: 07/07/2020 COMPARISON: 07/06/2020 INDICATION: Covid TECHNIQUE: Single frontal view of the chest is obtained. FINDINGS: The heart size is normal. The pulmonary vasculature is normal. Mild scattered nonspecific infiltrate is present which can be compatible with atypical pneumonia. Thi s may have slight improvement over the interval. Endotracheal tube tip is above the joslyn. Nasogastric tube transverses the thorax. Left central veno us catheter is present with the tip within the right atrium. IMPRESSION: 1. Mild improving nonspecific infiltrate can be compatible with atypical pneumonia. 2. Lines and catheters discussed above.
--- NOTE | 2020-07-07 11:16 | P.PN ---
Subjective Progress Note Date: 07/07/20 Principal diagnosis: Shortness of breath, cough. 80-year-old male, seen in the emergency department, on June 27. The patient came in complaining of weakness, fatigue, shortness of breath, chest congestion, and nonproductive cough. He's been sick for at least 2 weeks. He tells me he tested positive on Thursday but he actually may have tested positive on June 17. Currently, the patient's on 6 L nasal cannula. He is not receiving any IV fluids. He has a history of asthma, coronary artery disease, chest pain, angina, diabetes mellitus, hypertension, hyperlipidemia, osteoarthritis, pneumonia, hepatitis C, bursitis, and previous bypass grafting. The patient denies ever smoking cigarettes. Current lab data includes a white count 6.4, hematocrit 43.4, hemoglobin 14.7, and a platelet count of 186,000. PT, INR and PTT are normal. Sodium 135, potassium 4.3, chlorides 100, CO2 25, anion gap 10, BUN 28, creatinine 1.68. LDH is 730, C-reactive protein is 85.9. A d-dimer was not done. N-terminal proBNP was 522. A chest x-ray done in the emergency department shows bilateral patchy infiltrates, consistent with coronavirus pneumonia. Progress note dated 06/29/2020. This is a 80-year-old patient who I saw yesterday in the emergency department, in consultation. The patient was moved over to room 152, and I saw the patient this morning in the observation unit. Currently, the patient's quite short of breath. He is lying on his right side. His saturations are in the high 70s, on 15 L nasal cannula, and nonrebreather mask. Is getting saline at 75 mL an hour since I saw him yesterday, the patient states that he feeling more short of breath. Does cough. The cough causes pain in the chest. He's not coughing up any phlegm. No fever or chills. He denies any chest pain or pressure. White count was 11.2 and hemoglobin 14.8, hematocrit 45.5, platelet count 233,000. Chest x-ray shows bilateral patchy infiltrates. Because the patient was sick for such a long period of time, he was not a candidate for REM. The patient will be moved to the intensive care unit, we can be watched more closely. The patient in the end, may require intubation and mechanical ventilation. Progress note dated 07/02/2020. This is a patient that I initially saw in consultation on June 28. He was admitted to the hospital on June 27. He was intubated for acute respiratory failure on June 29. I moved him to the ICU on June 29, because I knew he was going to deteriorate. The patient did receive both convalescent plasma and TOCI. Currently, he remains on the volume assist control mode, rate 28, tidal volume 450, FiO2 60%, PEEP of 18. Arterial blood gases on the same settings, except FiO2 70%, shows a pO2 of 121, pCO2 of 49, pH is 7.31. The patient's on vital high protein at 30 mL an hour which is goal, Nimbex at 0.5 mcg/kg/m, propofol at 40 mcg/kg/m, fentanyl at 0.25 mcg/kg/h, and saline at 75 mL an hour. White count is 12.4, hemoglobin 13.1, hematocrit 38.8, platelet count 366,000. D-dimer is 0.45, sodium 140, potassium 4.7, chlorides 110, CO2 24, anion gap 6, BUN 44, and creatinine 1.25. LDH is 704. Chest x-ray shows diffuse pleural parenchymal changes, which are stable. Progress note dated 07/04/2020. The patient is again seen today. The patient is a room 259. He remains on the mechanical ventilator. He is on the volume assist control mode, rate of 28, tidal volume 450, FiO2 60%, he probably 18. Blood gases show pO2 61, pCO2 44, and a pH is 7.37. The patient's currently on Cleveprex at 2 mg an hour, propofol at 75 mcg/kg/m, fentanyl at 0.4 mcg/kg/h, saline at 75 mL an hour, and vital high protein at 10 mL an hour, which is goal. The patient has been weaned off the Nimbex. White count is 13.6, him from 13.8, hematocrit 39.7, platelet count 304,000. Most recent d-dimer is 0.73. Sed rate is 19. Blood gases have been noted. Current sodium is 141, potassium 4.6, chlorides 112, CO2 25, anion gap 4, BUN 43, creatinine 1.10. Calcium is 8.2. LDH 745. Chest x-rays consistent with diffuse bilateral airspace disease. Progress note dated 07/05/2020. The patient is again seen today in room 259. This is a 80-year-old gentleman with a history of hypoxemic respiratory failure. He is currently on the volume assist control mode, rate 28, tidal volume 450, FiO2 60%, PEEP of 18, which will be increased to 20. Arterial blood gases show a pO2 of 51, pCO2 42, and a pH is 7.4. This is on 18 of PEEP. The patient is currently on Cleveprex, at 2 mg an hour, propofol at 60 g kilogram per minute, fentanyl 0.6 mcg/kg per hour,vital high protein at 10 mL an hour, and saline at 75 mL an hour. White count is 13.6, hemoglobin hematocrit and platelet count are all normal. For some reason I do not see a metabolic profile on this patient. Chest x-ray shows bilateral infiltrates, which might be a bit improved. Progress note dated 07/06/2020. Again, the patient is seen in room 259. 80-year-old male with a history of hyp oxemic respiratory failure. He remains on the mechanical ventilator. His settings include the volume assist control mode, rate 28, tidal volume 450, FiO2 60%, and PEEP of 20. Blood gases are borderline, with a pO2 of 65, pCO2 43, and a pH of 7.39. The patient's on saline at 75 mL an hour, propofol at 60 mcg/kg/m, fentanyl 0.6 mcg/kg/h, Cleveprex 5 mg an hour, and vital high protein at 10 mL an hour, which is goal. The chest x-ray this morning had not yet been done. White count 14.2, hemoglobin hematocrit and platelet count all normal. Sodium 139, potassium 4.7, chlorides 109, CO2 24, anion gap 6, BUN 48, and creatinine 0.97. Progress note dated 07/07/2020. The patient is again seen in room 259. The patient has a history of hypoxemic respiratory failure and is on the ventilator. Currently, he is on the volume assist control mode, rate 28, tidal volume 450, FiO2 50%, and a PEEP of 20. Blood gases show a PaO2 of 151 PaCO2 of 46, and a pH of 7.37. The PEEP will be decreased from 20 down to 16 cm water. The blood gases were done on 60% and the FiO2 was dropped from 60-50%. He remains on Cleveprex, 2 mg an hour, propofol at 65 mcg/kg/m, fentanyl 0.6 mcg/kg/h, saline at 75 mL an hour, and vital high protein at 10 with a goal of 10 mL an hour. White count 9.1, hemoglobin 12.3, hematocrit 35.3, platelet count 3 44,000. D-dimer is 1.35. Blood gases have been noted. Sodium 137, potassium 3.7, chlorides 114, CO2 22, anion gap is 1, BUN 41, creatinine 0.86. The rest of the labs look okay. The chest x-ray does show some improvement. Objective - Vital Signs Vital signs: Vital Signs Temp 98.5 F 07/07/20 08:00 Pulse 47 L 07/07/20 11:00 Resp 28 H 07/07/20 11:00 BP 177/104 07/05/20 15:00 Pulse Ox 97 07/07/20 11:00 Intake & Output 07/06/20 07/07/20 07/07/20 18:59 06:59 18:59 Intake Total 1685.426 979.818 669.829 Output Total 1020 740 200 Balance 665.426 239.818 469.829 Weight 136.4 kg Intake: IV 911 609 384 Pressure bag 36 9 9 Sodium Chloride 0.9% 1, 875 600 375 000 ml @ 75 mls/hr IV . [id number] [facility] Rx#:[id number] Intake, IV Titration 574.426 250.818 155.829 Amount Clevidipine Butyrate 25 86.667 50 52.233 mg In Empty Bag 1 bag @ 1 MG/HR 2 mls/hr IV .Q24H [facility] Rx#:[id number] fentaNYL (PF) 1,000 mcg 64.844 100 In Sodium Chloride 0.9% 80 ml @ Per Protocol IV . Q0M [facility] Rx#:[id number] propofoL 1,000 mg In 422.915 100.818 103.596 Empty Bag 1 bag @ Titrate IV .Q0M [facility] Rx#: [id number] Oral 30 Tube Feeding 110 90 50 Other 90 80 Output: Urine 1020 670 200 Other 70 Other: Voiding Method Indwelling Catheter Indwelling Catheter ABP, PAP, CO, CI - Last Documented Arterial Blood Pressure 134/62 - Exam Sedated , currently intubated and mechanically ventilated. There is an orally placed endotracheal tube. HEENT examination is grossly unremarkable. Neck supple. Full range of motion. No adenopathy thyromegaly or neck vein distention. Cardiovascular examination reveals regular rhythm rate. S1-S2 normal. No S3 or S4. No discernible murmur noted. Heart rate 47 bpm. Lungs reveal bilateral crackles and diffuse scattered bilateral rhonchi. There are no wheezes. Breath sounds equal bilaterally. Abdomen soft bowel sounds are heard. No masses or tenderness. Extremities are intact. No cyanosis clubbing or edema. Skin is without rash or lesion. Neurologic examination could not be assessed as the patient's is sedated. - Labs CBC & Chem 7: 07/07/20 05:30 07/07/20 05:30 Labs: Abnormal Lab Results - Last 24 Hours (Table) 07/03/20 07/06/20 07/06/20 Range/Units 04:10 12:39 17:41 RBC (4.30-5.90) m/uL Hgb (13.0-17.5) gm/dL Hct (39.0-53.0) % Neutrophils # (1.3-7.7) k/uL Lymphocytes # (1.0-4.8) k/uL D-Dimer (<0.60) mg/L FEU ABG pCO2 (35-45) mmHg ABG pO2 (83-108) mmHg ABG HCO3 (21-25) mmol/L ABG Total CO2 (19-24) mmol/L ABG O2 Saturation (94-97) % Chloride (98-107) mmol/L BUN (9-20) mg/dL Glucose (74-99) mg/dL POC Glucose (mg/dL) 150 H 156 H (75-99) mg/dL Calcium (8.4-10.2) mg/dL LD Isoenzymes 337 H (120-250) U/L LD 1 15 L (19-38) % LD 2 29 L (30-43) % LD 4 14 H (3-12) % LD 5 21 H (3-14) % Creatine Kinase (55-170) U/L Total Protein (6.3-8.2) g/dL Albumin (3.5-5.0) g/dL 07/07/20 07/07/20 07/07/20 Range/Units 00:33 02:34 05:30 RBC 3.99 L (4.30-5.90) m/uL Hgb 12.3 L (13.0-17.5) gm/dL Hct 35.3 L (39.0-53.0) % Neutrophils # 8.2 H (1.3-7.7) k/uL Lymphocytes # 0.4 L (1.0-4.8) k/uL D-Dimer (<0.60) mg/L FEU ABG pCO2 (35-45) mmHg ABG pO2 (83-108) mmHg ABG HCO3 (21-25) mmol/L ABG Total CO2 (19-24) mmol/L ABG O2 Saturation (94-97) % Chloride (98-107) mmol/L BUN (9-20) mg/dL Glucose (74-99) mg/dL POC Glucose (mg/dL) 168 H 168 H (75-99) mg/dL Calcium (8.4-10.2) mg/dL LD Isoenzymes (120-250) U/L LD 1 (19-38) % LD 2 (30-43) % LD 4 (3-12) % LD 5 (3-14) % Creatine Kinase (55-170) U/L Total Protein (6.3-8.2) g/dL Albumin (3.5-5.0) g/dL 07/07/20 07/07/20 07/07/20 Range/Units 05:30 05:30 05:33 RBC (4.30-5.90) m/uL Hgb (13.0-17.5) gm/dL Hct (39.0-53.0) % Neutrophils # (1.3-7.7) k/uL Lymphocytes # (1.0-4.8) k/uL D-Dimer 1.35 H (<0.60) mg/L FEU ABG pCO2 (35-45) mmHg ABG pO2 (83-108) mmHg ABG HCO3 (21-25) mmol/L ABG Total CO2 (19-24) mmol/L ABG O2 Saturation (94-97) % Chloride 114 H (98-107) mmol/L BUN 41 H (9-20) mg/dL Glucose 142 H (74-99) mg/dL POC Glucose (mg/dL) 146 H (75-99) mg/dL Calcium 6.7 L (8.4-10.2) mg/dL LD Isoenzymes (120-250) U/L LD 1 (19-38) % LD 2 (30-43) % LD 4 (3-12) % LD 5 (3-14) % Creatine Kinase 52 L (55-170) U/L Total Protein 3.8 L (6.3-8.2) g/dL Albumin 1.9 L (3.5-5.0) g/dL 07/07/20 Range/Units 06:18 RBC (4.30-5.90) m/uL Hgb (13.0-17.5) gm/dL Hct (39.0-53.0) % Neutrophils # (1.3-7.7) k/uL Lymphocytes # (1.0-4.8) k/uL D-Dimer (<0.60) mg/L FEU ABG pCO2 46 H (35-45) mmHg ABG pO2 151 H (83-108) mmHg ABG HCO3 27 H (21-25) mmol/L ABG Total CO2 29 H (19-24) mmol/L ABG O2 Saturation 99.0 H (94-97) % Chloride (98-107) mmol/L BUN (9-20) mg/dL Glucose (74-99) mg/dL POC Glucose (mg/dL) (75-99) mg/dL Calcium (8.4-10.2) mg/dL LD Isoenzymes (120-250) U/L LD 1 (19-38) % LD 2 (30-43) % LD 4 (3-12) % LD 5 (3-14) % Creatine Kinase (55-170) U/L Total Protein (6.3-8.2) g/dL Albumin (3.5-5.0) g/dL Assessment and Plan Assessment: Acute hypoxemic respiratory failure secondary to COVID 19 pneumonia, with s ignificantly worsening oxygenation, status post intubation on 06/29/2020. The patient has received both convalescent plasma and TOCI. History of chronic bronchial asthma. Lifelong nonsmoker. History of CAD, status post bypass grafting. History of diabetes mellitus. Hyperlipidemia by history. Hypertension. Hepatitis C. History of pneumonia. History of hypothyroidism. History of osteoarthritis. Plan: Plan dated 06/28/2020. The patient is not a candidate for REM. The patient should get vitamin C, vitamin D3, and zinc. In addition, we'll need to do a D-dimer test. The patient should also get corticosteroids. The patient should also be on a lacunar preferably Lovenox. Additional recommendations and suggestions are forthcoming. The patient is on Zosyn. Not sure why that is. We will check a pro-calcitonin level. If his low, should be discontinued. Additional recommendations and suggestions are forthcoming. We'll follow. Repeat chest x- ray in a day or 2, and inflammatory markers every 2 or 3 days. Prognosis is guarded. Plan dated 06/29/2020. The patient's oxygenation has significantly worsened in the last 24 hours. The patient is currently on a nonrebreather mask, and 15 L high flow oxygen. The patient's also receiving saline at 75 mL an hour. I'm going to move the patient to the intensive care unit for further monitoring and observation. He may require intubation and mechanical ventilation before the end of the day. I explained that to the patient. Additional recommendations suggestions are forthcoming. Prognosis is guarded. Chest x-ray and labs are reviewed. The pro-calcitonin level was only 0.12, and antibiotics will be discontinued. Plan dated 07/02/2020. The patient remains on appropriate medications. The patient's FiO2 was dropped from 70%, down to 60%. Additional recommendations and suggestions are forthcoming. Patient is currently sedated and paralyzed. We'll attempt to wean his sedatives down further. No additional recommendations are made. Prognosis is guarded. His chest x-ray is unchanged. Labs and medications are reviewed. Plan dated 07/04/2020. The patient remains on mechanical ventilator. The patient's on Cleveprex for blood pressure control. For sedation, the patient is on propofol, and for pain control, fentanyl. The Nimbex was weaned off yesterday. He remains on enteral nutrition, at goal. Labs, x-rays, and medications all reviewed. I'm hoping that we can progress to patient so that we can do a daily eruption of sedation. Prognosis is guarded. Because of pro-calcitonin level was low, antibiotics were discontinued. Medications are reviewed. Plan dated 07/05/2020. Currently, the patient seems to be reasonably stable. And actually, his chest x-ray may be slightly improved. The people be increased from 18 up to 20 cm water. The patient is being enterally fed. He is on Cleveprex for blood pressure control, is currently on both propofol and fentanyl. we will continue to see the patient on a daily basis, and make recommendations were appropriate. We will also do a daily interruption of sedation Plan dated 07/06/2020. The patient had an uneventful night last night. Nothing was reported to the nurses this morning in terms of any issues last night. The patient remains on propofol and fentanyl and Cleveprex for blood pressure control. A chest x-ray has not yet been done. He will be ordered. Additional recommendations and suggestions are forthcoming. Prognosis is guarded. The patient may eventually end up with a tracheostomy and PEG tube. We will eventually have to talk to the family about that. We will continue with albuterol inhaler, vitamin C, vitamin D3, and zinc. We'll also continue with Lovenox, and corticosteroids. Plan dated 07/07/2020. The patient had an uneventful night. He remains on sedation with propofol and fentanyl. He is getting nutrition at goal. He is on Cleveprex for blood pressure control. The people be decreased from 20 to 16 today. The FiO2 was decreased from 60 down to 50%. Additional recommendations suggestions are forthcoming. Prognosis is guarded. The patient continues on vitamins, and albuterol. He also continues on Lovenox, and corticosteroids. In the end, the patient may be a candidate for tracheostomy and PEG tube placement. Time with Patient: Greater than 30
--- NOTE | 2020-07-07 11:35 | P.PN ---
Subjective Progress Note Date: 07/07/20 HISTORY OF PRESENT ILLNESS This is a 80-year-old male patient of Dr. 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 Patient states that he has had symptoms for 2 weeks which include body aches, shortness of breath coming foggy thinking. He denies any nausea, vomiting or diarrhea. He states he has had sputum production. He denies any lower extremity edema. Patient does not have home oxygen. Patient presented to [facility] emergency center for evaluation. Chest x-ray reveals bibasilar patchy opacities consistent with multifocal infection. No pleural effusions or pneumothorax. Temperature 100.1, heart rate 75, respiratory rate 24, blood pressure 125/63 and pulse ox 83% on room air. EKG was a sinus rhythm at 66 bpm. CBC was unremarkable except for lymphocytosis of 0.5. INR 1.0. Sodium 135, BUN 28 creatinine 1.68. Blood sugar 202. Lactic acid 1.6. Liver function tests were normal. LDH 730. C- reactive protein and a 5.9. ProBNP 522. 4/2: Patient is seen today on the observation unit as an overflow. Pulse ox is 84% on 15 L hyponasal cannula and nonrebreather. Patient seems to have more shortness of breath today and also complains of wheezing. No significant cough production. No fever or chills. No chest pain. WBC 11.2, hemoglobin 14.8, platelet count 233. Repeat chest x-ray reveals findings consistent with pneumonia. Pro-calcitonin 0.12. Blood sugars running in the 200s. Patient to be moved to the intensive care unit. 06/30: Patient declined significantly in the afternoon yesterday ended up on mechanical ventilation, he been sedated currently his marker are still quite bit high. Patient still required high demand O2 along with high PEEP of 15-20 to keep his pulse ox at the margin of 90 percentile. His blood sugars mildly elevated and still been managed on insulin, white blood cell is up to 13,000 today, his blood gas shows pO2 of 653 only. CO2 of 27 and pH of 7.31 creatinine has slightly improved since yesterday he C-reactive protein is up to 144 and LDH of 748. 4/4: Patient is still on mechanical ventilation is FiO2 is down to 70% still on PEEP of 18 I had long discussion with the and update her on with outpatient patient's condition still guarded this point his prognosis still not good but he has slight improvement compared to yesterday, his kidney function has improved slightly bit compared to yesterday as well. 07/02: Patient remains in the ICU. Patient is intubated and on mechanical ventilation with tidall volume 450,, FiO2 60%, PEEP of 18 which is improved from yesterday. He is pulse oxing 92-95%. He has been afebrile, heart rate in the 40s, respiratory rate 28, blood pressure 148/67. color television console monitor is sinus bradycardia. Repeat lab work reveals WBC 12.4, hemoglobin 13.1, platelet count 266. Sed rate 33. D-dimer 0.45. Sodium 140, potassium 4.7, chloride 110, CO2 24, BUN 44 and creatinine 0.25. Blood sugars running between 197 and 248. Ferritin 629.9. LDH 704. He is currently nothing by mouth. 07/03: Patient has been afebrile, heart rate 61, blood pressure 177/104, pulse ox 97%. Patient remains intubated and on mechanical ventilation with tidal volume 450, FiO2 60, PEEP of 18. Repeat blood work reveals WBC 15.9, hemoglobin 14.9, platelet count 341. Lymphocytes 0.5. Sodium 140, potassium 4.9, chloride 109, CO2 22, BUN 44 and creatinine 1. LDH 951. Liver function tests normal. Blood sugars running between 221 and 299. Levemir will be increased to 20 units twice daily and scheduled NovoLog will be increased to 7 units every 6 hours along with NovoLog scale continued. Tube feedings are at goal. Repeat chest x-ray reveals diffuse pleural parenchymal changes correlate for interstitial pneumonia is stable. Dr. Beverly has stopped Nimbex and Cleviprex. 07/04: Heart rate has been running in the 40s and Lopressor decreased from 50 mg twice daily to 25 mg twice daily and parameters to hold if heart rate is less than 55. Blood pressure is still been an issue and patient was weaned off Alan viprex. She remains intubated and on mechanical ventilation with tidal volume 520, FiO2 60, PEEP of 18. Blood sugar was still running high until this morning, this morning's blood sugar 194. Adjustments were made to his insulin yesterday and tube feeding dose decreased today. Will hold on making any further changes with insulins. Repeat blood work reveals sed rate of 90, d- dimer 0.73. Sodium 141, potassium 4.6, chloride 112, CO2 25, BUN 43, creatinine 1.10. Ferritin 683.9. LDH 745. Repeat chest x-ray reveals diffuse bilateral airspace disease stable correlate for diffuse pneumonia, ARDS versus pulmonary edema. 07/05: Patient remains intubated and on mechanical ventilation with tidal volume 450, FiO2 60 and PEEP of 20. Patient has been afebrile, heart rate in the 40s, respiratory rate 28, blood pressure 134/60, pulse ox 98%. Lopressor is not been given at a lower rate due to bradycardia. Repeat blood work reveals WBC 13.6, hemoglobin 13.6, platelet count 292. Blood sugars running between 148 and 179. 07/06: Patient remains in the intensive care unit intubated and on mechanical ventilation with tidal volume 450, FiO2 60, PEEP of 20. He is on propofol and fentanyl. He is also currently on Cleviprex. Repeat chest x-ray reveals diffuse interstitial infiltrates are stable. WBC 14.2, hemoglobin 14.2, platelet count 292. Creatinine 0.97 and BUN 48. Blood sugars running between 165 an 187. Patient may require PEG tube and trach. 07/07: Repeat chest x-ray reveals mild improving nonspecific infiltrate can be compatible with atypical pneumonia. He remains in the intensive care unit intubated and on mechanical ventilation with tidal volume 450, FiO2 decreased to 50% and PEEP of 16. He is still on Cleviprex. He remains on sedation. He is tolerating tube feedings. Repeat blood work reveals WBC 9.1, hemoglobin 12.3, platelet count 244. D-dimer 1.35. BUN 41 creatinine 0.86. Blood sugars running between 146 and 168. C-reactive protein 7.9. CK 52. REVIEW OF SYSTEMS Unable to obtain due to intubation, mechanical ventilation and sedation. PHYSICAL EXAMINATION Defer to pulmonary medicine due to intubation and active Covid status. Gen: This is a morbidly obese 80-year-old male. He is resting in ICU bed intubated and on mechanical ventilation, patient appears to be comfortable. HEENT: Head is atraumatic, normocephalic. LUNGS: No intercostal retractions. NEUROLOGICAL: Patient issedated. ASSESSMENT AND PLAN 1. Acute hypoxic respiratory failure secondary to COVID19 Pneumonia. Continue mechanical ventilation. Continue Solu-Medrol 60 mg IV every 6 hours, Lovenox 40 mg daily, albuterol inhaler 2 puffs every 6 hours, vitamins C, vitamin D, zinc, Symbicort twice daily, continue current set up of his vent management patient is managed by men's custom hair piece consultant. 2. Possible secondary bacterial gram-negative pneumonia ruled out by pulmonary medicine. 3. Acute kidney injury with chronic kidney disease stage III. 3. History of coronary artery disease status post CABG, stable. Continue aspirin 81 mg daily, Lipitor 80 mg at bedtime, Lopressor 25 mg twice daily. 4. Diabetes mellitus type 2, uncontrolled with hyperglycemia secondary to steroids. Continue Actos 30 mg daily, NovoLog scale before meals and at bedtime, continue Levemir 20 units twice daily, scheduled NovoLog 7 units every 6 hours. 5. Hypertension. Continue Lopressor, Norvasc 5 mg daily. Continue Cleviprex. 6. Hyperlipidemia. Continue atorvastatin and fenofibrate 7. Hypothyroidism. Continue levothyroxine 75 g daily. 8. Bradycardia. Lopressor decreased to 25 mg twice daily . 9. GI prophylaxis. Protonix. 9. DVT prophylaxis. Lovenox. Prognosis is guarded. Impression and plan of care have been directed as dictated by the signing physician. Mihaela Roberts nurse practitioner acting as scribe for signing physician. Objective - Vital Signs Vital signs: Vital Signs Temp 98.5 F 07/07/20 08:00 Pulse 44 L 07/07/20 08:00 Resp 28 H 07/07/20 08:00 BP 177/104 07/05/20 15:00 Pulse Ox 98 07/07/20 08:00 Intake & Output 07/06/20 07/07/20 07/07/20 18:59 06:59 18:59 Intake Total 1685.426 979.818 259.336 Output Total 1020 740 Balance 665.426 239.818 259.336 Weight 136.4 kg Intake: IV 911 609 150 Pressure bag 36 9 Sodium Chloride 0.9% 1, 875 600 150 000 ml @ 75 mls/hr IV . [id number] [facility] Rx#:[id number] Intake, IV Titration 574.426 250.818 59.336 Amount Clevidipine Butyrate 25 86.667 50 48.833 mg In Empty Bag 1 bag @ 1 MG/HR 2 mls/hr IV .Q24H [facility] Rx#:[id number] fentaNYL (PF) 1,000 mcg 64.844 100 In Sodium Chloride 0.9% 80 ml @ Per Protocol IV . Q0M [facility] Rx#:[id number] propofoL 1,000 mg In 422.915 100.818 10.503 Empty Bag 1 bag @ Titrate IV .Q0M [facility] Rx#: [id number] Oral 30 Tube Feeding 110 90 20 Other 90 30 Output: Urine 1020 670 Other 70 Other: Voiding Method Indwelling Catheter Indwelling Catheter ABP, PAP, CO, CI - Last Documented Arterial Blood Pressure 141/66 - Labs CBC & Chem 7: 07/07/20 05:30 07/07/20 05:30 Labs: Abnormal Lab Results - Last 24 Hours (Table) 07/03/20 07/06/20 07/06/20 Range/Units 04:10 12:39 17:41 RBC (4.30-5.90) m/uL Hgb (13.0-17.5) gm/dL Hct (39.0-53.0) % Neutrophils # (1.3-7.7) k/uL Lymphocytes # (1.0-4.8) k/uL D-Dimer (<0.60) mg/L FEU ABG pCO2 (35-45) mmHg ABG pO2 (83-108) mmHg ABG HCO3 (21-25) mmol/L ABG Total CO2 (19-24) mmol/L ABG O2 Saturation (94-97) % Chloride (98-107) mmol/L BUN (9-20) mg/dL Glucose (74-99) mg/dL POC Glucose (mg/dL) 150 H 156 H (75-99) mg/dL Calcium (8.4-10.2) mg/dL LD Isoenzymes 337 H (120-250) U/L LD 1 15 L (19-38) % LD 2 29 L (30-43) % LD 4 14 H (3-12) % LD 5 21 H (3-14) % Creatine Kinase (55-170) U/L Total Protein (6.3-8.2) g/dL Albumin (3.5-5.0) g/dL 07/07/20 07/07/20 07/07/20 Range/Units 00:33 02:34 05:30 RBC 3.99 L (4.30-5.90) m/uL Hgb 12.3 L (13.0-17.5) gm/dL Hct 35.3 L (39.0-53.0) % Neutrophils # 8.2 H (1.3-7.7) k/uL Lymphocytes # 0.4 L (1.0-4.8) k/uL D-Dimer (<0.60) mg/L FEU ABG pCO2 (35-45) mmHg ABG pO2 (83-108) mmHg ABG HCO3 (21-25) mmol/L ABG Total CO2 (19-24) mmol/L ABG O2 Saturation (94-97) % Chloride (98-107) mmol/L BUN (9-20) mg/dL Glucose (74-99) mg/dL POC Glucose (mg/dL) 168 H 168 H (75-99) mg/dL Calcium (8.4-10.2) mg/dL LD Isoenzymes (120-250) U/L LD 1 (19-38) % LD 2 (30-43) % LD 4 (3-12) % LD 5 (3-14) % Creatine Kinase (55-170) U/L Total Protein (6.3-8.2) g/dL Albumin (3.5-5.0) g/dL 07/07/20 07/07/20 07/07/20 Range/Units 05:30 05:30 05:33 RBC (4.30-5.90) m/uL Hgb (13.0-17.5) gm/dL Hct (39.0-53.0) % Neutrophils # (1.3-7.7) k/uL Lymphocytes # (1.0-4.8) k/uL D-Dimer 1.35 H (<0.60) mg/L FEU ABG pCO2 (35-45) mmHg ABG pO2 (83-108) mmHg ABG HCO3 (21-25) mmol/L ABG Total CO2 (19-24) mmol/L ABG O2 Saturation (94-97) % Chloride 114 H (98-107) mmol/L BUN 41 H (9-20) mg/dL Glucose 142 H (74-99) mg/dL POC Glucose (mg/dL) 146 H (75-99) mg/dL Calcium 6.7 L (8.4-10.2) mg/dL LD Isoenzymes (120-250) U/L LD 1 (19-38) % LD 2 (30-43) % LD 4 (3-12) % LD 5 (3-14) % Creatine Kinase 52 L (55-170) U/L Total Protein 3.8 L (6.3-8.2) g/dL Albumin 1.9 L (3.5-5.0) g/dL 07/07/20 Range/Units 06:18 RBC (4.30-5.90) m/uL Hgb (13.0-17.5) gm/dL Hct (39.0-53.0) % Neutrophils # (1.3-7.7) k/uL Lymphocytes # (1.0-4.8) k/uL D-Dimer (<0.60) mg/L FEU ABG pCO2 46 H (35-45) mmHg ABG pO2 151 H (83-108) mmHg ABG HCO3 27 H (21-25) mmol/L ABG Total CO2 29 H (19-24) mmol/L ABG O2 Saturation 99.0 H (94-97) % Chloride (98-107) mmol/L BUN (9-20) mg/dL Glucose (74-99) mg/dL POC Glucose (mg/dL) (75-99) mg/dL Calcium (8.4-10.2) mg/dL LD Isoenzymes (120-250) U/L LD 1 (19-38) % LD 2 (30-43) % LD 4 (3-12) % LD 5 (3-14) % Creatine Kinase (55-170) U/L Total Protein (6.3-8.2) g/dL Albumin (3.5-5.0) g/dL
[2020-07-07 11:43] LABS: Glucose,Whole Blood 135 mg/dL (75-99)
[2020-07-07 12:02] LABS: Ferritin 466.5 ng/mL (22.0-322.0)
[2020-07-07 16:37] LABS: LD Isoenzymes 1 15 % (19-38); LD Isoenzymes 2 33 % (30-43); LD Isoenzymes 3 22 % (16-26); LD Isoenzymes 4 13 % (3-12); LD Isoenzymes 5 17 % (3-14); Lactacte Dehydrogenase(LD) ISO 256 U/L (120-250)
[2020-07-07 17:59] LABS: Glucose,Whole Blood 131 mg/dL (75-99)
[2020-07-07] MEDS ORDERED: POTASSIUM BICARBONATE/CIT AC 20 MEQ TABLET.EFF NG-TUBE SCH (20:00)
[2020-07-07] MEDS: ASPIRIN 81 MG PO SCH (20:50)
[2020-07-07] MEDS: ATORVASTATIN 80 MG TAB PO SCH (20:50)
[2020-07-07] MEDS: allopurinoL 300 MG TAB PO SCH (20:53)
[2020-07-07 23:39] LABS: Glucose,Whole Blood 142 mg/dL (75-99)
[2020-07-08] MEDS: CLEVIDIPINE BUTYRATE 25 MG in EMPTY BAG 1 BAG IV SCH ×5 (00:33→21:57)
[2020-07-08 04:19] LABS: Basophils % (A) 0 %; Eosinophils # (A) 0.1 k/uL (0-0.7); Eosinophils % (A) 1 %; HCT 42.7 % (39.0-53.0); HGB 14.9 gm/dL (13.0-17.5); Lymphocytes # (A) 0.4 k/uL (1.0-4.8); Lymphocytes % (A) 3 %; MCHC 34.9 g/dL (31.0-37.0); MCV 88.6 fL (80.0-100.0); Mean Platelet Volume 8.6; Monocytes # (A) 0.4 k/uL (0-1.0); Monocytes % (A) 3 %; Neutrophils # (A) 13.2 k/uL (1.3-7.7); Neutrophils % (A) 93 %; Platelet Count 220 k/uL (150-450); RBC 4.83 m/uL (4.30-5.90); WBC 14.3 k/uL (3.8-10.6)
[2020-07-08 05:53] LABS: ALT 31 U/L (4-49); AST 43 U/L (17-59); African American GFR (CKD) >90 (>60 ml/min/1.73 sqM); Albumin 2.6 g/dL (3.5-5.0); Alkaline Phosphatase 50 U/L (38-126); Anion Gap 9 mmol/L; Blood Urea Nitrogen 48 mg/dL (9-20); C Reactive Protein 6.6 mg/L (<10.0); Calcium 8.2 mg/dL (8.4-10.2); Carbon Dioxide 21 mmol/L (22-30); Chloride 112 mmol/L (98-107); Creatine Kinase 65 U/L (55-170); Glucose 151 mg/dL (74-99); LDH 1224 U/L (313-618); Non-African American GFR(CKD) 78 (>60 ml/min/1.73 sqM); Potassium 4.8 mmol/L (3.5-5.1); Sodium 142 mmol/L (137-145); Total Bilirubin 0.7 mg/dL (0.2-1.3); Total Protein 4.9 g/dL (6.3-8.2)
[2020-07-08] MEDS: INSULIN ASPART (NovoLOG) 100 UNIT/ML VIAL SQ SCH ×8 (06:22→23:20)
[2020-07-08] MEDS: methylPREDNISolone SOD SUCCI 125 MG/2 ML VIAL IV SCH ×4 (06:23→23:19)
[2020-07-08] MEDS: INSULIN DETEMIR (LEVEMIR) 100 UNIT/ML SYR SQ SCH ×2 (06:24→20:59)
[2020-07-08] MEDS: LEVOTHYROXINE 75 MCG TAB PO SCH (06:36)
[2020-07-08 06:49] LABS: ABG Base Excess 3.2 mmol/L; ABG HCO3 28 mmol/L (21-25); ABG Oxygen Saturation 95.5 % (94-97); ABG PCO2 44 mmHg (35-45); ABG PH 7.41 (7.35-7.45); ABG PO2 78 mmHg (83-108); ABG TCO2 29 mmol/L (19-24); Allen Test Performed? Yes
[2020-07-08] MEDS: PANTOPRAZOLE 40 MG/10 ML VIAL IVP SCH (08:43)
[2020-07-08] MEDS: ZINC SULFATE 220 MG CAP PO SCH (08:43)
[2020-07-08] MEDS: guaiFENesin 600 MG TABLET.ER PO SCH ×2 (08:43→20:58)
[2020-07-08] MEDS: FENOFIBRATE 160 MG TAB PO SCH (08:44)
[2020-07-08] MEDS: CHOLECALCIFEROL 25 MCG (1000 IU) TABLET PO SCH (08:44)
[2020-07-08] MEDS: METOPROLOL TARTRATE 25 MG TAB PO SCH ×2 (08:44→20:59)
[2020-07-08] MEDS: ASCORBIC ACID 500 MG TAB PO SCH (08:44)
[2020-07-08] MEDS: ENOXAPARIN 40 MG/0.4 ML SYRINGE SQ SCH (08:44)
[2020-07-08] MEDS: PIOGLITAZONE 30 MG TAB PO SCH (08:44)
[2020-07-08] MEDS: amLODIPine 5 MG TAB PO SCH (08:45)
[2020-07-08] MEDS: MULTIVITAMINS, THERA 1 EACH TAB PO SCH (08:45)
[2020-07-08] MEDS: CHLORHEXIDINE GLUCONATE 15 ML CUP MUCOUS MEM SCH ×2 (08:45→20:58)
[2020-07-08] MEDS: fentaNYL (PF) 1,000 MCG in SODIUM CHLORIDE 0.9% 80 ML IV SCH ×2 (08:50→22:42)
[2020-07-08 09:39] LABS: Ferritin 548.2 ng/mL (22.0-322.0)
[2020-07-08] MEDS: ALBUTEROL HFA INHALER INHALATION SCH ×4 (09:45→21:25)
[2020-07-08] MEDS ORDERED: CISATRACURIUM 2 MG/ML 5 ML VIAL IV ONE ×3 (09:48→09:55)
--- NOTE | 2020-07-08 11:45 | P.PN ---
Subjective Progress Note Date: 07/08/20 HISTORY OF PRESENT ILLNESS This is a 80-year-old male patient of Dr. 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 Patient states that he has had symptoms for 2 weeks which include body aches, shortness of breath coming foggy thinking. He denies any nausea, vomiting or diarrhea. He states he has had sputum production. He denies any lower extremity edema. Patient does not have home oxygen. Patient presented to [facility] emergency center for evaluation. Chest x-ray reveals bibasilar patchy opacities consistent with multifocal infection. No pleural effusions or pneumothorax. Temperature 100.1, heart rate 75, respiratory rate 24, blood pressure 125/63 and pulse ox 83% on room air. EKG was a sinus rhythm at 66 bpm. CBC was unremarkable except for lymphocytosis of 0.5. INR 1.0. Sodium 135, BUN 28 creatinine 1.68. Blood sugar 202. Lactic acid 1.6. Liver function tests were normal. LDH 730. C- reactive protein and a 5.9. ProBNP 522. 4/2: Patient is seen today on the observation unit as an overflow. Pulse ox is 84% on 15 L hyponasal cannula and nonrebreather. Patient seems to have more shortness of breath today and also complains of wheezing. No significant cough production. No fever or chills. No chest pain. WBC 11.2, hemoglobin 14.8, platelet count 233. Repeat chest x-ray reveals findings consistent with pneumonia. Pro-calcitonin 0.12. Blood sugars running in the 200s. Patient to be moved to the intensive care unit. 06/30: Patient declined significantly in the afternoon yesterday ended up on mechanical ventilation, he been sedated currently his marker are still quite bit high. Patient still required high demand O2 along with high PEEP of 15-20 to keep his pulse ox at the margin of 90 percentile. His blood sugars mildly elevated and still been managed on insulin, white blood cell is up to 13,000 today, his blood gas shows pO2 of 653 only. CO2 of 27 and pH of 7.31 creatinine has slightly improved since yesterday he C-reactive protein is up to 144 and LDH of 748. 4/4: Patient is still on mechanical ventilation is FiO2 is down to 70% still on PEEP of 18 I had long discussion with the and update her on with outpatient patient's condition still guarded this point his prognosis still not good but he has slight improvement compared to yesterday, his kidney function has improved slightly bit compared to yesterday as well. 07/02: Patient remains in the ICU. Patient is intubated and on mechanical ventilation with tidall volume 450,, FiO2 60%, PEEP of 18 which is improved from yesterday. He is pulse oxing 92-95%. He has been afebrile, heart rate in the 40s, respiratory rate 28, blood pressure 148/67. monitor worker is sinus bradycardia. Repeat lab work reveals WBC 12.4, hemoglobin 13.1, platelet count 266. Sed rate 33. D-dimer 0.45. Sodium 140, potassium 4.7, chloride 110, CO2 24, BUN 44 and creatinine 0.25. Blood sugars running between 197 and 248. Ferritin 629.9. LDH 704. He is currently nothing by mouth. 07/03: Patient has been afebrile, heart rate 61, blood pressure 177/104, pulse ox 97%. Patient remains intubated and on mechanical ventilation with tidal volume 450, FiO2 60, PEEP of 18. Repeat blood work reveals WBC 15.9, hemoglobin 14.9, platelet count 341. Lymphocytes 0.5. Sodium 140, potassium 4.9, chloride 109, CO2 22, BUN 44 and creatinine 1. LDH 951. Liver function tests normal. Blood sugars running between 221 and 299. Levemir will be increased to 20 units twice daily and scheduled NovoLog will be increased to 7 units every 6 hours along with NovoLog scale continued. Tube feedings are at goal. Repeat chest x-ray reveals diffuse pleural parenchymal changes correlate for interstitial pneumonia is stable. Dr. Beverly has stopped Nimbex and Cleviprex. 07/04: Heart rate has been running in the 40s and Lopressor decreased from 50 mg twice daily to 25 mg twice daily and parameters to hold if heart rate is less than 55. Blood pressure is still been an issue and patient was weaned off Alan viprex. She remains intubated and on mechanical ventilation with tidal volume 520, FiO2 60, PEEP of 18. Blood sugar was still running high until this morning, this morning's blood sugar 194. Adjustments were made to his insulin yesterday and tube feeding dose decreased today. Will hold on making any further changes with insulins. Repeat blood work reveals sed rate of 90, d- dimer 0.73. Sodium 141, potassium 4.6, chloride 112, CO2 25, BUN 43, creatinine 1.10. Ferritin 683.9. LDH 745. Repeat chest x-ray reveals diffuse bilateral airspace disease stable correlate for diffuse pneumonia, ARDS versus pulmonary edema. 07/05: Patient remains intubated and on mechanical ventilation with tidal volume 450, FiO2 60 and PEEP of 20. Patient has been afebrile, heart rate in the 40s, respiratory rate 28, blood pressure 134/60, pulse ox 98%. Lopressor is not been given at a lower rate due to bradycardia. Repeat blood work reveals WBC 13.6, hemoglobin 13.6, platelet count 292. Blood sugars running between 148 and 179. 07/06: Patient remains in the intensive care unit intubated and on mechanical ventilation with tidal volume 450, FiO2 60, PEEP of 20. He is on propofol and fentanyl. He is also currently on Cleviprex. Repeat chest x-ray reveals diffuse interstitial infiltrates are stable. WBC 14.2, hemoglobin 14.2, platelet count 292. Creatinine 0.97 and BUN 48. Blood sugars running between 165 an 187. Patient may require PEG tube and trach. 07/07: Repeat chest x-ray reveals mild improving nonspecific infiltrate can be compatible with atypical pneumonia. He remains in the intensive care unit intubated and on mechanical ventilation with tidal volume 450, FiO2 decreased to 50% and PEEP of 16. He is still on Cleviprex. He remains on sedation. He is tolerating tube feedings. Repeat blood work reveals WBC 9.1, hemoglobin 12.3, platelet count 244. D-dimer 1.35. BUN 41 creatinine 0.86. Blood sugars running between 146 and 168. C-reactive protein 7.9. CK 52. 07/08: Patient remains in the intensive care unit. He is on propofol and Ventolin. He is on mechanical ventilation with tidal volume 450, FiO2 50%, PEEP down to 16. Tube feedings are 10 MLS per hour at goal. POO 97%, HR improved and patient received lopressor last night and this morning. He as been afebrile. BP 148/72 and on Cleviprex. WBC 14.3. D-dimer 1.92. BUN 48 and creatinine 0.93. Calcium 8.2. Ferritin 548.2. Liver function tests are normal. LDH 1224. CK 65. C-reactive protein 6.6. REVIEW OF SYSTEMS Unable to obtain due to intubation, mechanical ventilation and sedation. PHYSICAL EXAMINATION Defer to pulmonary medicine due to intubation and active Covid status. Gen: This is a morbidly obese 80-year-old male. He is resting in ICU bed intubated and on mechanical ventilation, patient appears to be comfortable. HEENT: Head is atraumatic, normocephalic. LUNGS: No intercostal retractions. NEUROLOGICAL: Patient issedated. ASSESSMENT AND PLAN 1. Acute hypoxic respiratory failure secondary to COVID19 Pneumonia. Continue mechanical ventilation. Continue Solu-Medrol 60 mg IV every 6 hours, Lovenox 40 mg daily, albuterol inhaler 2 puffs every 6 hours, vitamins C, vitamin D, zinc, Symbicort twice daily, continue current set up of his vent management patient is managed by slasher runner. 2. Possible secondary bacterial gram-negative pneumonia ruled out by pulmonary medicine. 3. Acute kidney injury with chronic kidney disease stage III. 3. History of coronary artery disease status post CABG, stable. Continue aspirin 81 mg daily, Lipitor 80 mg at bedtime, Lopressor 25 mg twice daily. 4. Diabetes mellitus type 2, uncontrolled with hyperglycemia secondary to steroids. Continue Actos 30 mg daily, NovoLog scale before meals and at bedtime, continue Levemir 20 units twice daily, scheduled NovoLog 7 units every 6 hours. 5. Hypertension. Continue Lopressorwith parameters for bradycardia, Norvasc 5 mg daily. Continue Cleviprex. 6. Hyperlipidemia. Continue atorvastatin and fenofibrate 7. Hypothyroidism. Continue levothyroxine 75 g daily. 8. Bradycardia. Lopressor decreased to 25 mg twice daily . 9. GI prophylaxis. Protonix. 9. DVT prophylaxis. Lovenox. Prognosis is guarded. Impression and plan of care have been directed as dictated by the signing ph ysician. Mihaela Roberts nurse practitioner acting as scribe for signing physician. Objective - Vital Signs Vital signs: Vital Signs Temp 99.0 F 07/08/20 04:00 Pulse 47 L 07/08/20 05:00 Resp 28 H 07/08/20 05:00 BP 148/72 07/08/20 05:00 Pulse Ox 97 07/08/20 05:00 Intake & Output 07/07/20 07/08/20 07/08/20 18:59 06:59 18:59 Intake Total 2490.874 2964.333 235.599 Output Total 780 1235 125 Balance 791.055 522.333 110.599 Weight 135.5 kg Intake: IV 930 936 78 Pressure bag 30 36 3 Sodium Chloride 0.9% 1, 900 900 75 000 ml @ 75 mls/hr IV . [id number] [facility] Rx#:[id number] Intake, IV Titration 381.055 611.333 147.599 Amount Clevidipine Butyrate 25 97.900 111.333 48.3 mg In Empty Bag 1 bag @ 1 MG/HR 2 mls/hr IV .Q24H [facility] Rx#:[id number] fentaNYL (PF) 1,000 mcg 79.559 100 In Sodium Chloride 0.9% 80 ml @ Per Protocol IV . Q0M [facility] Rx#:[id number] propofoL 1,000 mg In 203.596 400 99.299 Empty Bag 1 bag @ Titrate IV .Q0M [facility] Rx#: [id number] Tube Feeding 120 120 10 Other 140 90 Output: Urine 780 1235 125 Other: Voiding Method Indwelling Catheter Indwelling Catheter ABP, PAP, CO, CI - Last Documented Arterial Blood Pressure 142/63 - Labs CBC & Chem 7: 07/08/20 03:50 07/08/20 03:50 Labs: Abnormal Lab Results - Last 24 Hours (Table) 07/04/20 07/07/20 07/07/20 Range/Units 05:10 05:30 11:41 WBC (3.8-10.6) k/uL Neutrophils # (1.3-7.7) k/uL Lymphocytes # (1.0-4.8) k/uL D-Dimer (<0.60) mg/L FEU ABG pO2 (83-108) mmHg ABG HCO3 (21-25) mmol/L ABG Total CO2 (19-24) mmol/L Chloride (98-107) mmol/L Carbon Dioxide (22-30) mmol/L BUN (9-20) mg/dL Glucose (74-99) mg/dL POC Glucose (mg/dL) 135 H (75-99) mg/dL Calcium (8.4-10.2) mg/dL Ferritin 466.5 H (22.0-322.0) ng/mL Lactate Dehydrogenase (313-618) U/L LD Isoenzymes 256 H (120-250) U/L LD 1 15 L (19-38) % LD 4 13 H (3-12) % LD 5 17 H (3-14) % Total Protein (6.3-8.2) g/dL Albumin (3.5-5.0) g/dL 07/07/20 07/07/20 07/08/20 Range/Units 17:58 23:36 03:50 WBC 14.3 H (3.8-10.6) k/uL Neutrophils # 13.2 H (1.3-7.7) k/uL Lymphocytes # 0.4 L (1.0-4.8) k/uL D-Dimer (<0.60) mg/L FEU ABG pO2 (83-108) mmHg ABG HCO3 (21-25) mmol/L ABG Total CO2 (19-24) mmol/L Chloride (98-107) mmol/L Carbon Dioxide (22-30) mmol/L BUN (9-20) mg/dL Glucose (74-99) mg/dL POC Glucose (mg/dL) 131 H 142 H (75-99) mg/dL Calcium (8.4-10.2) mg/dL Ferritin (22.0-322.0) ng/mL Lactate Dehydrogenase (313-618) U/L LD Isoenzymes (120-250) U/L LD 1 (19-38) % LD 4 (3-12) % LD 5 (3-14) % Total Protein (6.3-8.2) g/dL Albumin (3.5-5.0) g/dL 07/08/20 07/08/20 07/08/20 Range/Units 03:50 03:50 06:42 WBC (3.8-10.6) k/uL Neutrophils # (1.3-7.7) k/uL Lymphocytes # (1.0-4.8) k/uL D-Dimer 1.92 H (<0.60) mg/L FEU ABG pO2 78 L (83-108) mmHg ABG HCO3 28 H (21-25) mmol/L ABG Total CO2 29 H (19-24) mmol/L Chloride 112 H (98-107) mmol/L Carbon Dioxide 21 L (22-30) mmol/L BUN 48 H (9-20) mg/dL Glucose 151 H (74-99) mg/dL POC Glucose (mg/dL) (75-99) mg/dL Calcium 8.2 L (8.4-10.2) mg/dL Ferritin 548.2 H (22.0-322.0) ng/mL Lactate Dehydrogenase 1224 H (313-618) U/L LD Isoenzymes (120-250) U/L LD 1 (19-38) % LD 4 (3-12) % LD 5 (3-14) % Total Protein 4.9 L (6.3-8.2) g/dL Albumin 2.6 L (3.5-5.0) g/dL
--- NOTE | 2020-07-08 11:57 | P.PN ---
Subjective Progress Note Date: 07/08/20 Principal diagnosis: Shortness of breath, cough. 80-year-old male, seen in the emergency department, on June 27. The patient came in complaining of weakness, fatigue, shortness of breath, chest congestion, and nonproductive cough. He's been sick for at least 2 weeks. He tells me he tested positive on Thursday but he actually may have tested positive on June 17. Currently, the patient's on 6 L nasal cannula. He is not receiving any IV fluids. He has a history of asthma, coronary artery disease, chest pain, angina, diabetes mellitus, hypertension, hyperlipidemia, osteoarthritis, pneumonia, hepatitis C, bursitis, and previous bypass grafting. The patient denies ever smoking cigarettes. Current lab data includes a white count 6.4, hematocrit 43.4, hemoglobin 14.7, and a platelet count of 186,000. PT, INR and PTT are normal. Sodium 135, potassium 4.3, chlorides 100, CO2 25, anion gap 10, BUN 28, creatinine 1.68. LDH is 730, C-reactive protein is 85.9. A d-dimer was not done. N-terminal proBNP was 522. A chest x-ray done in the emergency department shows bilateral patchy infiltrates, consistent with coronavirus pneumonia. Progress note dated 06/29/2020. This is a 80-year-old patient who I saw yesterday in the emergency department, in consultation. The patient was moved over to room 152, and I saw the patient this morning in the observation unit. Currently, the patient's quite short of breath. He is lying on his right side. His saturations are in the high 70s, on 15 L nasal cannula, and nonrebreather mask. Is getting saline at 75 mL an hour since I saw him yesterday, the patient states that he feeling more short of breath. Does cough. The cough causes pain in the chest. He's not coughing up any phlegm. No fever or chills. He denies any chest pain or pressure. White count was 11.2 and hemoglobin 14.8, hematocrit 45.5, platelet count 233,000. Chest x-ray shows bilateral patchy infiltrates. Because the patient was sick for such a long period of time, he was not a candidate for REM. The patient will be moved to the intensive care unit, we can be watched more closely. The patient in the end, may require intubation and mechanical ventilation. Progress note dated 07/02/2020. This is a patient that I initially saw in consultation on June 28. He was admitted to the hospital on June 27. He was intubated for acute respiratory failure on June 29. I moved him to the ICU on June 29, because I knew he was going to deteriorate. The patient did receive both convalescent plasma and TOCI. Currently, he remains on the volume assist control mode, rate 28, tidal volume 450, FiO2 60%, PEEP of 18. Arterial blood gases on the same settings, except FiO2 70%, shows a pO2 of 121, pCO2 of 49, pH is 7.31. The patient's on vital high protein at 30 mL an hour which is goal, Nimbex at 0.5 mcg/kg/m, propofol at 40 mcg/kg/m, fentanyl at 0.25 mcg/kg/h, and saline at 75 mL an hour. White count is 12.4, hemoglobin 13.1, hematocrit 38.8, platelet count 366,000. D-dimer is 0.45, sodium 140, potassium 4.7, chlorides 110, CO2 24, anion gap 6, BUN 44, and creatinine 1.25. LDH is 704. Chest x-ray shows diffuse pleural parenchymal changes, which are stable. Progress note dated 07/04/2020. The patient is again seen today. The patient is a room 259. He remains on the mechanical ventilator. He is on the volume assist control mode, rate of 28, tidal volume 450, FiO2 60%, he probably 18. Blood gases show pO2 61, pCO2 44, and a pH is 7.37. The patient's currently on Cleveprex at 2 mg an hour, propofol at 75 mcg/kg/m, fentanyl at 0.4 mcg/kg/h, saline at 75 mL an hour, and vital high protein at 10 mL an hour, which is goal. The patient has been weaned off the Nimbex. White count is 13.6, him from 13.8, hematocrit 39.7, platelet count 304,000. Most recent d-dimer is 0.73. Sed rate is 19. Blood gases have been noted. Current sodium is 141, potassium 4.6, chlorides 112, CO2 25, anion gap 4, BUN 43, creatinine 1.10. Calcium is 8.2. LDH 745. Chest x-rays consistent with diffuse bilateral airspace disease. Progress note dated 07/05/2020. The patient is again seen today in room 259. This is a 80-year-old gentleman with a history of hypoxemic respiratory failure. He is currently on the volume assist control mode, rate 28, tidal volume 450, FiO2 60%, PEEP of 18, which will be increased to 20. Arterial blood gases show a pO2 of 51, pCO2 42, and a pH is 7.4. This is on 18 of PEEP. The patient is currently on Cleveprex, at 2 mg an hour, propofol at 60 g kilogram per minute, fentanyl 0.6 mcg/kg per hour,vital high protein at 10 mL an hour, and saline at 75 mL an hour. White count is 13.6, hemoglobin hematocrit and platelet count are all normal. For some reason I do not see a metabolic profile on this patient. Chest x-ray shows bilateral infiltrates, which might be a bit improved. Progress note dated 07/06/2020. Again, the patient is seen in room 259. 80-year-old male with a history of hyp oxemic respiratory failure. He remains on the mechanical ventilator. His settings include the volume assist control mode, rate 28, tidal volume 450, FiO2 60%, and PEEP of 20. Blood gases are borderline, with a pO2 of 65, pCO2 43, and a pH of 7.39. The patient's on saline at 75 mL an hour, propofol at 60 mcg/kg/m, fentanyl 0.6 mcg/kg/h, Cleveprex 5 mg an hour, and vital high protein at 10 mL an hour, which is goal. The chest x-ray this morning had not yet been done. White count 14.2, hemoglobin hematocrit and platelet count all normal. Sodium 139, potassium 4.7, chlorides 109, CO2 24, anion gap 6, BUN 48, and creatinine 0.97. Progress note dated 07/07/2020. The patient is again seen in room 259. The patient has a history of hypoxemic respiratory failure and is on the ventilator. Currently, he is on the volume assist control mode, rate 28, tidal volume 450, FiO2 50%, and a PEEP of 20. Blood gases show a PaO2 of 151 PaCO2 of 46, and a pH of 7.37. The PEEP will be decreased from 20 down to 16 cm water. The blood gases were done on 60% and the FiO2 was dropped from 60-50%. He remains on Cleveprex, 2 mg an hour, propofol at 65 mcg/kg/m, fentanyl 0.6 mcg/kg/h, saline at 75 mL an hour, and vital high protein at 10 with a goal of 10 mL an hour. White count 9.1, hemoglobin 12.3, hematocrit 35.3, platelet count 3 44,000. D-dimer is 1.35. Blood gases have been noted. Sodium 137, potassium 3.7, chlorides 114, CO2 22, anion gap is 1, BUN 41, creatinine 0.86. The rest of the labs look okay. The chest x-ray does show some improvement. Progress note dated 07/08/2020. The patient is again seen in room 259. Remains on the ventilator. He is on the volume assist control mode, rate 28, tidal volume 450, FiO2 50%, and PEEP of 16. Blood gases show pO2 78, pCO2 44, pH is 7.41. He is on Cleveprex is 6 mg an hour, propofol at 70 mcg/kg/m, fentanyl at 0.6 mcg/kg/h, saline at 75 mL an hour and vital high protein at 30 mL every 4 hours. Today, we will place a left fem oral art line The right femoral art line did not function anymore. White count 14.3, he will 14.9, hematocrit 42.7, platelet count 220,000. D-dimer is 1.92. Sodium is 142, potassium 4.8, chlorides 112, CO2 21, anion gap is 9, BUN 40, creatinine 0.93. LDH is 1224. Albumin 2.6. Chest x-ray continues to show bilateral diffuse infiltrates. Objective - Vital Signs Vital signs: Vital Signs Temp 99.0 F 07/08/20 04:00 Pulse 47 L 07/08/20 05:00 Resp 28 H 07/08/20 05:00 BP 148/72 07/08/20 05:00 Pulse Ox 97 07/08/20 05:00 Intake & Output 07/07/20 07/08/20 07/08/20 18:59 06:59 18:59 Intake Total 5630.370 4709.333 237.299 Output Total 780 1235 125 Balance 791.055 522.333 112.299 Weight 135.5 kg Intake: IV 930 936 78 Pressure bag 30 36 3 Sodium Chloride 0.9% 1, 900 900 75 000 ml @ 75 mls/hr IV . [id number] [facility] Rx#:[id number] Intake, IV Titration 381.055 611.333 149.299 Amount Clevidipine Butyrate 25 97.900 111.333 50.0 mg In Empty Bag 1 bag @ 1 MG/HR 2 mls/hr IV .Q24H [facility] Rx#:[id number] fentaNYL (PF) 1,000 mcg 79.559 100 In Sodium Chloride 0.9% 80 ml @ Per Protocol IV . Q0M [facility] Rx#:[id number] propofoL 1,000 mg In 203.596 400 99.299 Empty Bag 1 bag @ Titrate IV .Q0M [facility] Rx#: [id number] Tube Feeding 120 120 10 Other 140 90 Output: Urine 780 1235 125 Other: Voiding Method Indwelling Catheter Indwelling Catheter ABP, PAP, CO, CI - Last Documented Arterial Blood Pressure 142/63 - Exam Sedated , currently intubated and mechanically ventilated. There is an orally placed endotracheal tube. HEENT examination is grossly unremarkable. Neck supple. Full range of motion. No adenopathy thyromegaly or neck vein distention. Cardiovascular examination reveals regular rhythm rate. S1-S2 normal. No S3 or S4. No discernible murmur noted. Heart rate 67 bpm. Lungs reveal bilateral crackles and diffuse scattered bilateral rhonchi. There are no wheezes. Breath sounds equal bilaterally. Abdomen soft bowel sounds are heard. No masses or tenderness. Extremities are intact. No cyanosis clubbing or edema. Skin is without rash or lesion. Neurologic examination could not be assessed as the patient's is sedated. - Labs CBC & Chem 7: 07/08/20 03:50 07/08/20 03:50 Labs: Abnormal Lab Results - Last 24 Hours (Table) 07/04/20 07/07/20 07/07/20 Range/Units 05:10 05:30 17:58 WBC (3.8-10.6) k/uL Neutrophils # (1.3-7.7) k/uL Lymphocytes # (1.0-4.8) k/uL D-Dimer (<0.60) mg/L FEU ABG pO2 (83-108) mmHg ABG HCO3 (21-25) mmol/L ABG Total CO2 (19-24) mmol/L Chloride (98-107) mmol/L Carbon Dioxide (22-30) mmol/L BUN (9-20) mg/dL Glucose (74-99) mg/dL POC Glucose (mg/dL) 131 H (75-99) mg/dL Calcium (8.4-10.2) mg/dL Ferritin 466.5 H (22.0-322.0) ng/mL Lactate Dehydrogenase (313-618) U/L LD Isoenzymes 256 H (120-250) U/L LD 1 15 L (19-38) % LD 4 13 H (3-12) % LD 5 17 H (3-14) % Total Protein (6.3-8.2) g/dL Albumin (3.5-5.0) g/dL 07/07/20 07/08/20 07/08/20 Range/Units 23:36 03:50 03:50 WBC 14.3 H (3.8-10.6) k/uL Neutrophils # 13.2 H (1.3-7.7) k/uL Lymphocytes # 0.4 L (1.0-4.8) k/uL D-Dimer 1.92 H (<0.60) mg/L FEU ABG pO2 (83-108) mmHg ABG HCO3 (21-25) mmol/L ABG Total CO2 (19-24) mmol/L Chloride (98-107) mmol/L Carbon Dioxide (22-30) mmol/L BUN (9-20) mg/dL Glucose (74-99) mg/dL POC Glucose (mg/dL) 142 H (75-99) mg/dL Calcium (8.4-10.2) mg/dL Ferritin (22.0-322.0) ng/mL Lactate Dehydrogenase (313-618) U/L LD Isoenzymes (120-250) U/L LD 1 (19-38) % LD 4 (3-12) % LD 5 (3-14) % Total Protein (6.3-8.2) g/dL Albumin (3.5-5.0) g/dL 07/08/20 07/08/20 Range/Units 03:50 06:42 WBC (3.8-10.6) k/uL Neutrophils # (1.3-7.7) k/uL Lymphocytes # (1.0-4.8) k/uL D-Dimer (<0.60) mg/L FEU ABG pO2 78 L (83-108) mmHg ABG HCO3 28 H (21-25) mmol/L ABG Total CO2 29 H (19-24) mmol/L Chloride 112 H (98-107) mmol/L Carbon Dioxide 21 L (22-30) mmol/L BUN 48 H (9-20) mg/dL Glucose 151 H (74-99) mg/dL POC Glucose (mg/dL) (75-99) mg/dL Calcium 8.2 L (8.4-10.2) mg/dL Ferritin 548.2 H (22.0-322.0) ng/mL Lactate Dehydrogenase 1224 H (313-618) U/L LD Isoenzymes (120-250) U/L LD 1 (19-38) % LD 4 (3-12) % LD 5 (3-14) % Total Protein 4.9 L (6.3-8.2) g/dL Albumin 2.6 L (3.5-5.0) g/dL Assessment and Plan Assessment: Acute hypoxemic respiratory failure secondary to COVID 19 pneumonia, with significantly worsening oxygenation, status post intubation on 06/29/2020. The patient has received both convalescent plasma and TOCI. History of chronic bronchial asthma. Lifelong nonsmoker. History of CAD, status post bypass grafting. History of diabetes mellitus. Hyperlipidemia by history. Hypertension. Hepatitis C. History of pneumonia. History of hypothyroidism. History of osteoarthritis. Plan: Plan dated 06/28/2020. The patient is not a candidate for REM. The patient should get vitamin C, vitamin D3, and zinc. In addition, we'll need to do a D-dimer test. The patient should also get corticosteroids. The patient should also be on a lacunar preferably Lovenox. Additional recommendations and suggestions are forthcoming. The patient is on Zosyn. Not sure why that is. We will check a pro-calcitonin level. If his low, should be discontinued. Additional recommendations and suggestions are forthcoming. We'll follow. Repeat chest x- ray in a day or 2, and inflammatory markers every 2 or 3 days. Prognosis is guarded. Plan dated 06/29/2020. The patient's oxygenation has significantly worsened in the last 24 hours. The patient is currently on a nonrebreather mask, and 15 L high flow oxygen. The patient's also receiving saline at 75 mL an hour. I'm going to move the patient to the intensive care unit for further monitoring and observation. He may require intubation and mechanical ventilation before the end of the day. I explained that to the patient. Additional recommendations suggestions are forthcoming. Prognosis is guarded. Chest x-ray and labs are reviewed. The pro-calcitonin level was only 0.12, and antibiotics will be discontinued. Plan dated 07/02/2020. The patient remains on appropriate medications. The patient's FiO2 was dropped from 70%, down to 60%. Additional recommendations and suggestions are forthcoming. Patient is currently sedated and paralyzed. We'll attempt to wean his sedatives down further. No additional recommendations are made. Prognosis is guarded. His chest x-ray is unchanged. Labs and medications are reviewed. Plan dated 07/04/2020. The patient remains on mechanical ventilator. The patient's on Cleveprex for blood pressure control. For sedation, the patient is on propofol, and for pain control, fentanyl. The Nimbex was weaned off yesterday. He remains on enteral nutrition, at goal. Labs, x-rays, and medications all reviewed. I'm hoping that we can progress to patient so that we can do a daily eruption of sedation. Prognosis is guarded. Because of pro-calcitonin level was low, antibiotics were discontinued. Medications are reviewed. Plan dated 07/05/2020. Currently, the patient seems to be reasonably stable. And actually, his chest x-ray may be slightly improved. The people be increased from 18 up to 20 cm water. The patient is being enterally fed. He is on Cleveprex for blood pressure control, is currently on both propofol and fentanyl. we will continue to see the patient on a daily basis, and make recommendations were appropriate. We will also do a daily interruption of sedation Plan dated 07/06/2020. The patient had an uneventful night last night. Nothing was reported to the nurses this morning in terms of any issues last night. The patient remains on propofol and fentanyl and Cleveprex for blood pressure control. A chest x-ray has not yet been done. He will be ordered. Additional recommendations and suggestions are forthcoming. Prognosis is guarded. The patient may eventually end up with a tracheostomy and PEG tube. We will eventually have to talk to the family about that. We will continue with albuterol inhaler, vitamin C, vitamin D3, and zinc. We'll also continue with Lovenox, and corticosteroids. Plan dated 07/07/2020. The patient had an uneventful night. He remains on sedation with propofol and fentanyl. He is getting nutrition at goal. He is on Cleveprex for blood pressure control. The people be decreased from 20 to 16 today. The FiO2 was decreased from 60 down to 50%. Additional recommendations suggestions are forthcoming. Prognosis is guarded. The patient continues on vitamins, and albuterol. He also continues on Lovenox, and corticosteroids. In the end, the patient may be a candidate for tracheostomy and PEG tube placement. Plan dated 07/08/2020. The patient had a uneventful night. The right femoral art line was nonfunctional. A new left femoral art line was placed. He remains on Cleveprex for blood pressure control. He is also on propofol and fentanyl. He remains on nutrition with vital high protein. Blood gases are reasonable. No vent changes are made. We will continue to follow make recommendations were appropriate. He does continue on Lovenox and corticosteroids. The patient may be a candidate for tracheostomy and PEG tube placement. We will continue to follow make recommendations were appropriate. The patient remains full code. Time with Patient: Greater than 30
--- NOTE | 2020-07-08 11:57 | PCN ---
PROCEDURE NOTE PROCEDURE: Left femoral art line. PREOP DIAGNOSIS: Frequent blood draws and blood gas monitoring. POSTOP DIAGNOSIS: Frequent blood draws and blood gas monitoring. OPERATORS: Dr. Beverly and Dr. Lomeli. ARTERIAL LINE PLACEMENT: Indications: Hemodynamic monitoring. A time-out was completed verifying correct patient, procedure, site, positioning, and implant(s) or special equipment if applicable. Kamran's test was performed to ensure adequate perfusion. The patient's left groin was prepped and draped in sterile fashion. 1% Lidocaine was used to anesthetize the area. An 18G Arrow arterial line was introduced into the left femoral artery. The catheter was threaded over the guide wire and the needle was removed with appropriate pulsatile blood return. Blood loss was minimal. The catheter was then sutured in place to the skin and a sterile dressing applied. Perfusion to the extremity distal to the point of catheter insertion was checked and found to be adequate. The patient tolerated the procedure well and there were no complications. There was informed consent and universal timeout. There was no immediate complication. There was good blood return and waveform. The patient tolerated the procedure well. The catheter was sutured in place. Sterile dressing was applied by the nurse. There were no immediate complications. MMODL / IJN: [id number] /
[2020-07-08 12:10] LABS: Glucose,Whole Blood 167 mg/dL (75-99)
--- NOTE | 2020-07-08 12:24 | XR ---
EXAMINATION TYPE: XR chest 1V portable DATE OF EXAM: 07/08/2020 COMPARISON: 07/07/2020 INDICATION: Covid TECHNIQUE: Single frontal view of the chest is obtained. FINDINGS: The heart size is mildly prominent. The pulmonary vasculature is normal. Minimal nonspecific increased lung markings are present similar to prior study. Endotracheal tube tip is above the joslyn. Nasogastric tube transverses the thorax. Left central veno us catheter tip is in the distal superior vena cava region IMPRESSION: 1. Stable mild scattered infiltrates. 2. Lines and catheters discussed above.
[2020-07-08] MEDS: SODIUM CHLORIDE 0.9% 1,000 ML IV SCH (16:36)
[2020-07-08 18:05] LABS: Glucose,Whole Blood 139 mg/dL (75-99)
[2020-07-08] MEDS: allopurinoL 300 MG TAB PO SCH (20:58)
[2020-07-08] MEDS: ASPIRIN 81 MG PO SCH (20:58)
[2020-07-08] MEDS: ATORVASTATIN 80 MG TAB PO SCH (20:59)
[2020-07-08 23:17] LABS: Glucose,Whole Blood 136 mg/dL (75-99)
[2020-07-09] MEDS: CLEVIDIPINE BUTYRATE 25 MG in EMPTY BAG 1 BAG IV SCH ×3 (01:11→21:38)
[2020-07-09] MEDS: SODIUM CHLORIDE 0.9% 1,000 ML IV SCH ×2 (02:04→19:03)
[2020-07-09 04:21] LABS: Basophils % (A) 0 %; Eosinophils % (A) 0 %; HCT 38.4 % (39.0-53.0); HGB 13.7 gm/dL (13.0-17.5); Lymphocytes # (A) 0.3 k/uL (1.0-4.8); Lymphocytes % (A) 2 %; MCH 31.2 pg (25.0-35.0); MCHC 35.8 g/dL (31.0-37.0); MCV 87.2 fL (80.0-100.0); Mean Platelet Volume 8.3; Monocytes # (A) 0.5 k/uL (0-1.0); Monocytes % (A) 4 %; Neutrophils # (A) 11.3 k/uL (1.3-7.7); Neutrophils % (A) 92 %; Platelet Count 205 k/uL (150-450); RDW 14.5 % (11.5-15.5); WBC 12.3 k/uL (3.8-10.6)
[2020-07-09 05:36] LABS: Chloride 110 mmol/L (98-107); Potassium 4.3 mmol/L (3.5-5.1); Sodium 136 mmol/L (137-145)
[2020-07-09 06:12] LABS: ABG Base Excess 2.9 mmol/L; ABG HCO3 28 mmol/L (21-25); ABG Oxygen Saturation 97.3 % (94-97); ABG PCO2 44 mmHg (35-45); ABG PH 7.41 (7.35-7.45); ABG PO2 96 mmHg (83-108); ABG TCO2 29 mmol/L (19-24); Allen Test Performed? Yes
[2020-07-09 06:39] LABS: Glucose,Whole Blood 139 mg/dL (75-99)
[2020-07-09] MEDS: INSULIN ASPART (NovoLOG) 100 UNIT/ML VIAL SQ SCH ×8 (06:44→23:34)
[2020-07-09] MEDS: INSULIN DETEMIR (LEVEMIR) 100 UNIT/ML SYR SQ SCH ×2 (06:44→20:30)
[2020-07-09] MEDS: LEVOTHYROXINE 75 MCG TAB PO SCH (06:44)
[2020-07-09] MEDS: methylPREDNISolone SOD SUCCI 125 MG/2 ML VIAL IV SCH ×4 (06:45→23:34)
[2020-07-09 06:47] LABS: African American GFR (CKD) >90 (>60 ml/min/1.73 sqM); Anion Gap 4 mmol/L; Blood Urea Nitrogen 45 mg/dL (9-20); Carbon Dioxide 22 mmol/L (22-30); Glucose 139 mg/dL (74-99); Non-African American GFR(CKD) 83 (>60 ml/min/1.73 sqM)
[2020-07-09 06:48] LABS: ALT 23 U/L (4-49); AST 29 U/L (17-59); Albumin 2.3 g/dL (3.5-5.0); Alkaline Phosphatase 52 U/L (38-126); C Reactive Protein 7.3 mg/L (<10.0); Calcium 8.3 mg/dL (8.4-10.2); Creatine Kinase 52 U/L (55-170); LDH 949 U/L (313-618); Total Bilirubin 0.6 mg/dL (0.2-1.3); Total Protein 4.4 g/dL (6.3-8.2)
--- NOTE | 2020-07-09 08:08 | P.PN ---
Subjective Progress Note Date: 07/09/20 On 07/09/2020, I'm seeing this 80-year-old male patient in the intensive care unit and the patient is currently intubated on a mechanical ventilated because of a COVID 19 related pneumonia. The patient originally presented with hypoxic respiratory failure and his oxidation progressively got worse and the patient had to be intubated and placed on a mechanical ventilator. He is known to have chronic bronchial asthma, CAD, diabetes mellitus, hypertension, hyperlipidemia, osteoarthritis and hepatitis C. The patient is also has undergone previous coronary artery bypass surgery. The patient got intubated on 07/04/2020 and the patient has been intubated since. The patient is currently on assist control mode with a tidal volume of 450 and FiO2 of 50% with a PEEP of 16 and the rate of 28. The blood gases from today showing a pH of 7.41 with a pCO2 of 44 and pO2 of 96 and this is on FiO2 of 50%. The chest x-ray from today was noted. Chest x-ray showing diffuse breath and pulmonary infiltrates and orotracheal tube is in a good location. Blood gases was noted. The patient is currently sedated. The patient is currently on propofol which is running at 70 mg/kg per minute and fentanyl at 0.6 mcg/kg/h. The patient is receiving enteral feeding for nutritional support and the patient on vital high protein at 10 mL an hour. The patient is also Cleviprex drip for blood pressure control is currently running at 2 mg an hour. The patient is currently receiving IV Solu Medrol 60 mg every 6 hours. The patient is on Lovenox 40 mg subcu every 24 hours. The patient has received Levemir insulin 20 units twice a day along with a NovoLog 7 units every 6 hours and a scaling for both sugar control. He is also on Actos 30 mg orally on a daily basis. He has history of hypothyroidism on levo thyroxine at 75 g by mouth daily. Inflammatory markers are elevated at 1224 LDH and CRP of 6.6. Renal function is stable. Rest of the electrolytes are stable. D-dimer is at 1.92. The peak airway pressures 37 anesthetic at a pressure of 31. Objective - Vital Signs Vital signs: Vital Signs Temp 98.7 F 07/09/20 04:00 Pulse 48 L 07/09/20 07:00 Resp 28 H 07/09/20 07:00 BP 148/70 04/12/21 07:00 Pulse Ox 93 L 07/09/20 07:00 Intake & Output 07/08/20 07/09/20 07/09/20 18:59 06:59 18:59 Intake Total 3947.038 0113.432 88 Output Total 970 1080 60 Balance 668.699 509.432 28 Weight 136.3 kg Intake: IV 858 936 78 Pressure bag 33 36 3 Sodium Chloride 0.9% 1, 825 900 75 000 ml @ 75 mls/hr IV . [id number] NAEEM Rx#:[id number] Intake, IV Titration 520.699 443.432 Amount Clevidipine Butyrate 25 121.4 27.200 mg In Empty Bag 1 bag @ 1 MG/HR 2 mls/hr IV .Q24H NAE[facility] Rx#:[id number] fentaNYL (PF) 1,000 mcg 100 In Sodium Chloride 0.9% 80 ml @ Per Protocol IV . Q0M [facility] Rx#:[id number] propofoL 1,000 mg In 399.299 316.232 Empty Bag 1 bag @ Titrate IV .Q0M NAE[facility] Rx#: [id number] Tube Feeding 120 120 10 Other 140 90 Output: Urine 970 1080 60 Other: Voiding Method Indwelling Catheter Indwelling Catheter ABP, PAP, CO, CI - Last Documented Arterial Blood Pressure 137/62 - Exam Sedated , currently intubated and mechanically ventilated. There is an orally placed endotracheal tube. Head exam was generally normal. There was no scleral icterus or corneal arcus. Mucous membranes were moist. Neck was supple and without jugular venous distension, thyromegaly, or carotid bruits. Carotids were easily palpable bilaterally. There was no adenopathy. Orogastric and orotracheal tube are both in place. Cardiac exam revealed the PMI to be normally situated and sized. The rhythm was regular and no extrasystoles were noted during several minutes of auscultation. The first and second heart sounds were normal and physiologic splitting of the second heart sound was noted. There were no murmurs, rubs, clicks, or gallops. Lungs reveal bilateral crackles and diffuse scattered bilateral rhonchi. There are no wheezes. Breath sounds equal bilaterally. Abdominal exam revealed normal bowel sounds. The abdomen was soft, non-tender, and without masses, organomegaly, or appreciable enlargement of the abdominal aorta. Examination of the extremities revealed easily palpable radial, femoral and pedal pulses. There was no cyanosis, clubbing or edema. Examination of the skin revealed no evidence of significant rashes, suspicious appearing nevi or other concerning lesions. Neurologic examination could not be assessed as the patient's is sedated. - Labs CBC & Chem 7: 07/09/20 03:55 07/09/20 03:55 Labs: Abnormal Lab Results - Last 24 Hours (Table) 07/08/20 07/08/20 07/08/20 Range/Units 03:50 12:08 18:04 WBC (3.8-10.6) k/uL Hct (39.0-53.0) % Neutrophils # (1.3-7.7) k/uL Lymphocytes # (1.0-4.8) k/uL D-Dimer (<0.60) mg/L FEU ABG HCO3 (21-25) mmol/L ABG Total CO2 (19-24) mmol/L ABG O2 Saturation (94-97) % Sodium (137-145) mmol/L Chloride (98-107) mmol/L BUN (9-20) mg/dL Glucose (74-99) mg/dL POC Glucose (mg/dL) 167 H 139 H (75-99) mg/dL Calcium (8.4-10.2) mg/dL Ferritin 548.2 H (22.0-322.0) ng/mL Lactate Dehydrogenase (313-618) U/L Creatine Kinase (55-170) U/L Total Protein (6.3-8.2) g/dL Albumin (3.5-5.0) g/dL 07/08/20 07/09/20 07/09/20 Range/Units 23:15 03:55 03:55 WBC 12.3 H (3.8-10.6) k/uL Hct 38.4 L (39.0-53.0) % Neutrophils # 11.3 H (1.3-7.7) k/uL Lymphocytes # 0.3 L (1.0-4.8) k/uL D-Dimer 2.00 H (<0.60) mg/L FEU ABG HCO3 (21-25) mmol/L ABG Total CO2 (19-24) mmol/L ABG O2 Saturation (94-97) % Sodium (137-145) mmol/L Chloride (98-107) mmol/L BUN (9-20) mg/dL Glucose (74-99) mg/dL POC Glucose (mg/dL) 136 H (75-99) mg/dL Calcium (8.4-10.2) mg/dL Ferritin (22.0-322.0) ng/mL Lactate Dehydrogenase (313-618) U/L Creatine Kinase (55-170) U/L Total Protein (6.3-8.2) g/dL Albumin (3.5-5.0) g/dL 07/09/20 07/09/20 07/09/20 Range/Units 03:55 06:05 06:38 WBC (3.8-10.6) k/uL Hct (39.0-53.0) % Neutrophils # (1.3-7.7) k/uL Lymphocytes # (1.0-4.8) k/uL D-Dimer (<0.60) mg/L FEU ABG HCO3 28 H (21-25) mmol/L ABG Total CO2 29 H (19-24) mmol/L ABG O2 Saturation 97.3 H (94-97) % Sodium 136 L (137-145) mmol/L Chloride 110 H (98-107) mmol/L BUN 45 H (9-20) mg/dL Glucose 139 H (74-99) mg/dL POC Glucose (mg/dL) 139 H (75-99) mg/dL Calcium 8.3 L (8.4-10.2) mg/dL Ferritin (22.0-322.0) ng/mL Lactate Dehydrogenase 949 H (313-618) U/L Creatine Kinase 52 L (55-170) U/L Total Protein 4.4 L (6.3-8.2) g/dL Albumin 2.3 L (3.5-5.0) g/dL Assessment and Plan Plan: 1 Acute hypoxemic respiratory failure secondary to COVID 19 pneumonia, with significantly worsening oxygenation, status post intubation on 06/29/2020. The patient has received both convalescent plasma and Tocilizumab, currently on IV Solu 60 mg every 6 hours the patient is also on Lovenox 40 mg subcu for DVT prophylaxis. Inflammatory markers remain elevated. D-dimer is low. The patient is still sedated with a combination of propofol and fentanyl the patient is also paralyzed. 2 History of chronic bronchial asthma. 3 Lifelong nonsmoker. 4 History of CAD, status post bypass grafting. 5 History of diabetes mellitus. 6 Hyperlipidemia by history. 7 Hypertension. 8 Hepatitis C. 9 History of pneumonia. 10 History of hypothyroidism. 11 History of osteoarthritis. Plan Keep the patient is sedated with propofol and fentanyl The patient is currently off paralytics Continue ventilator support and the ventilator setting, chest x-ray and blood gases were noted neuropathy down to 14 and later on down to 12, respiratory rate down to 20 Given Lasix 40 mg IV every 24 hours Wean off the Cleviprex, and start the patient on Norvasc 10 mg by mouth daily Continue IV Solu Medrol Continue Lovenox 40 mg subcu for DVT prophylaxis Continue enteral feeding for nutritional support Monitor inflammatory markers are improving and aldolase level is down to 949 with a CRP of 7.3 Continue the rest of the supportive care May be a good candidate for tracheostomy and PEG tube insertion due to prolonged need of intubation mechanical ventilation. Consult general surgery for tracheostomy and PEG tube insertion Critically care evaluation more than 30 minutes Time with Patient: Greater than 30
--- NOTE | 2020-07-09 09:13 | XR ---
EXAMINATION TYPE: XR chest 1V portable DATE OF EXAM: 07/09/2020 COMPARISON: 07/08/2020 HISTORY: Shortness of breath TECHNIQUE: Single frontal view of the chest is obtained. FINDINGS: ET tube and NG tube and central line seen and there is postoperative change. Heart is enla rged. Diffuse interstitial pattern with bibasilar elevation. Heart enlarged. Underlying COPD noted. IMPRESSION: Diffuse bilateral predominantly interstitial infiltrates with basilar consolidative infi ltrate is stable.
[2020-07-09 09:48] LABS: Ferritin 518.4 ng/mL (22.0-322.0)
[2020-07-09] MEDS: CHLORHEXIDINE GLUCONATE 15 ML CUP MUCOUS MEM SCH ×2 (10:03→20:30)
[2020-07-09] MEDS: PANTOPRAZOLE 40 MG/10 ML VIAL IVP SCH (10:03)
[2020-07-09] MEDS: ENOXAPARIN 40 MG/0.4 ML SYRINGE SQ SCH (10:04)
[2020-07-09] MEDS: amLODIPine 10 MG TAB PO SCH (10:04)
[2020-07-09] MEDS: guaiFENesin 600 MG TABLET.ER PO SCH ×2 (10:04→20:30)
[2020-07-09] MEDS: FUROSEMIDE 10 MG/ML 4 ML VIAL IV SCH (10:05)
[2020-07-09] MEDS: FENOFIBRATE 160 MG TAB PO SCH (10:05)
[2020-07-09] MEDS: ASCORBIC ACID 500 MG TAB PO SCH (10:05)
[2020-07-09] MEDS: PIOGLITAZONE 30 MG TAB PO SCH (10:05)
[2020-07-09] MEDS: METOPROLOL TARTRATE 25 MG TAB PO SCH ×2 (10:06→20:33)
[2020-07-09] MEDS: MULTIVITAMINS, THERA 1 EACH TAB PO SCH (10:06)
[2020-07-09] MEDS: ZINC SULFATE 220 MG CAP PO SCH (10:06)
[2020-07-09] MEDS: ALBUTEROL HFA INHALER INHALATION SCH ×4 (10:07→20:56)
[2020-07-09] MEDS: CHOLECALCIFEROL 25 MCG (1000 IU) TABLET PO SCH (10:11)
[2020-07-09] MEDS: fentaNYL (PF) 1,000 MCG in SODIUM CHLORIDE 0.9% 80 ML IV SCH (11:53)
[2020-07-09] MEDS: polyethylene glycoL 3350 17 GM POWD.PACK PO SCH (11:54)
[2020-07-09 12:04] LABS: Glucose,Whole Blood 170 mg/dL (75-99)
[2020-07-09 12:16] LABS: Glucose,Whole Blood 152 mg/dL (75-99)
--- NOTE | 2020-07-09 12:30 | P.PN ---
Subjective Progress Note Date: 07/09/20 HISTORY OF PRESENT ILLNESS This is a 80-year-old male patient of Dr. 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 Patient states that he has had symptoms for 2 weeks which include body aches, shortness of breath coming foggy thinking. He denies any nausea, vomiting or diarrhea. He states he has had sputum production. He denies any lower extremity edema. Patient does not have home oxygen. Patient presented to [facility] emergency center for evaluation. Chest x-ray reveals bibasilar patchy opacities consistent with multifocal infection. No pleural effusions or pneumothorax. Temperature 100.1, heart rate 75, respiratory rate 24, blood pressure 125/63 and pulse ox 83% on room air. EKG was a sinus rhythm at 66 bpm. CBC was unremarkable except for lymphocytosis of 0.5. INR 1.0. Sodium 135, BUN 28 creatinine 1.68. Blood sugar 202. Lactic acid 1.6. Liver function tests were normal. LDH 730. C- reactive protein and a 5.9. ProBNP 522. 4/2: Patient is seen today on the observation unit as an overflow. Pulse ox is 84% on 15 L hyponasal cannula and nonrebreather. Patient seems to have more shortness of breath today and also complains of wheezing. No significant cough production. No fever or chills. No chest pain. WBC 11.2, hemoglobin 14.8, platelet count 233. Repeat chest x-ray reveals findings consistent with pneumonia. Pro-calcitonin 0.12. Blood sugars running in the 200s. Patient to be moved to the intensive care unit. 06/30: Patient declined significantly in the afternoon yesterday ended up on mechanical ventilation, he been sedated currently his marker are still quite bit high. Patient still required high demand O2 along with high PEEP of 15-20 to keep his pulse ox at the margin of 90 percentile. His blood sugars mildly elevated and still been managed on insulin, white blood cell is up to 13,000 today, his blood gas shows pO2 of 653 only. CO2 of 27 and pH of 7.31 creatinine has slightly improved since yesterday he C-reactive protein is up to 144 and LDH of 748. 4/4: Patient is still on mechanical ventilation is FiO2 is down to 70% still on PEEP of 18 I had long discussion with the and update her on with outpatient patient's condition still guarded this point his prognosis still not good but he has slight improvement compared to yesterday, his kidney function has improved slightly bit compared to yesterday as well. 07/02: Patient remains in the ICU. Patient is intubated and on mechanical ventilation with tidall volume 450,, FiO2 60%, PEEP of 18 which is improved from yesterday. He is pulse oxing 92-95%. He has been afebrile, heart rate in the 40s, respiratory rate 28, blood pressure 148/67. traffic monitor specialist is sinus bradycardia. Repeat lab work reveals WBC 12.4, hemoglobin 13.1, platelet count 266. Sed rate 33. D-dimer 0.45. Sodium 140, potassium 4.7, chloride 110, CO2 24, BUN 44 and creatinine 0.25. Blood sugars running between 197 and 248. Ferritin 629.9. LDH 704. He is currently nothing by mouth. 07/03: Patient has been afebrile, heart rate 61, blood pressure 177/104, pulse ox 97%. Patient remains intubated and on mechanical ventilation with tidal volume 450, FiO2 60, PEEP of 18. Repeat blood work reveals WBC 15.9, hemoglobin 14.9, platelet count 341. Lymphocytes 0.5. Sodium 140, potassium 4.9, chloride 109, CO2 22, BUN 44 and creatinine 1. LDH 951. Liver function tests normal. Blood sugars running between 221 and 299. Levemir will be increased to 20 units twice daily and scheduled NovoLog will be increased to 7 units every 6 hours along with NovoLog scale continued. Tube feedings are at goal. Repeat chest x-ray reveals diffuse pleural parenchymal changes correlate for interstitial pneumonia is stable. Dr. Beverly has stopped Nimbex and Cleviprex. 07/04: Heart rate has been running in the 40s and Lopressor decreased from 50 mg twice daily to 25 mg twice daily and parameters to hold if heart rate is less than 55. Blood pressure is still been an issue and patient was weaned off Alan viprex. She remains intubated and on mechanical ventilation with tidal volume 520, FiO2 60, PEEP of 18. Blood sugar was still running high until this morning, this morning's blood sugar 194. Adjustments were made to his insulin yesterday and tube feeding dose decreased today. Will hold on making any further changes with insulins. Repeat blood work reveals sed rate of 90, d- dimer 0.73. Sodium 141, potassium 4.6, chloride 112, CO2 25, BUN 43, creatinine 1.10. Ferritin 683.9. LDH 745. Repeat chest x-ray reveals diffuse bilateral airspace disease stable correlate for diffuse pneumonia, ARDS versus pulmonary edema. 07/05: Patient remains intubated and on mechanical ventilation with tidal volume 450, FiO2 60 and PEEP of 20. Patient has been afebrile, heart rate in the 40s, respiratory rate 28, blood pressure 134/60, pulse ox 98%. Lopressor is not been given at a lower rate due to bradycardia. Repeat blood work reveals WBC 13.6, hemoglobin 13.6, platelet count 292. Blood sugars running between 148 and 179. 07/06: Patient remains in the intensive care unit intubated and on mechanical ventilation with tidal volume 450, FiO2 60, PEEP of 20. He is on propofol and fentanyl. He is also currently on Cleviprex. Repeat chest x-ray reveals diffuse interstitial infiltrates are stable. WBC 14.2, hemoglobin 14.2, platelet count 292. Creatinine 0.97 and BUN 48. Blood sugars running between 165 an 187. Patient may require PEG tube and trach. 07/07: Repeat chest x-ray reveals mild improving nonspecific infiltrate can be compatible with atypical pneumonia. He remains in the intensive care unit intubated and on mechanical ventilation with tidal volume 450, FiO2 decreased to 50% and PEEP of 16. He is still on Cleviprex. He remains on sedation. He is tolerating tube feedings. Repeat blood work reveals WBC 9.1, hemoglobin 12.3, platelet count 244. D-dimer 1.35. BUN 41 creatinine 0.86. Blood sugars running between 146 and 168. C-reactive protein 7.9. CK 52. 07/08: Patient remains in the intensive care unit. He is on propofol and Ventolin. He is on mechanical ventilation with tidal volume 450, FiO2 50%, PEEP down to 16. Tube feedings are 10 MLS per hour at goal. POO 97%, HR improved and patient received lopressor last night and this morning. He as been afebrile. BP 148/72 and on Cleviprex. WBC 14.3. D-dimer 1.92. BUN 48 and creatinine 0.93. Calcium 8.2. Ferritin 548.2. Liver function tests are normal. LDH 1224. CK 65. C-reactive protein 6.6. 07/09: Patient remains intubated and on mechanical ventilation with tidal volume 450, FiO2 50 and PEEP of 16. Amlodipine was increased to [address] Dumont for blood pressure control. Patient remains on Cleviprex. Patient is also on fentanyl and propofol. Patient is also on tube feedings. Patient is on IV Lasix and IV Solu-Medrol. Proceeding has been consulted for PEG and trach placement. Repeat chest x-ray reveals diffuse bilateral predominantly interstitial infiltrates with basilar consolidative infiltrate stable. Patient has been afebrile, heart rate 52, blood pressure 149/74, pulse ox 89%. Repeat blood work reveals WBC 12.3, hemoglobin 13.7. D-dimer 2. Sodium 136, potassium 4.3, chloride 110, CO2 22, BUN 45 and creatinine 0.85. Sugars are running 136- 152. Ferritin 518.4. LDH 949, CK 52. C-reactive protein 7.3. REVIEW OF SYSTEMS Unable to obtain due to intubation, mechanical ventilation and sedation. PHYSICAL EXAMINATION Defer to pulmonary medicine due to intubation and active Covid status. Gen: This is a morbidly obese 80-year-old male. He is resting in ICU bed intubated and on mechanical ventilation, patient appears to be comfortable. HEENT: Head is atraumatic, normocephalic. LUNGS: No intercostal retractions. NEUROLOGICAL: Patient issedated. ASSESSMENT AND PLAN 1. Acute hypoxic respiratory failure secondary to COVID19 Pneumonia. Continue mechanical ventilation. Continue Solu-Medrol 60 mg IV every 6 hours, Lovenox 40 mg daily, albuterol inhaler 2 puffs every 6 hours, vitamins C, vitamin D, zinc, Symbicort twice daily, continue current set up of his vent management patient is managed by antenna specialist. Consult with Dr. Stewart was admitted for trach and PEG tube insertion. 2. Possible secondary bacterial gram-negative pneumonia ruled out by pulmonary medicine. 3. Acute kidney injury with chronic kidney disease stage III. 3. History of coronary artery disease status post CABG, stable. Continue aspirin 81 mg daily, Lipitor 80 mg at bedtime, Lopressor 25 mg twice daily. 4. Diabetes mellitus type 2, uncontrolled with hyperglycemia secondary to st eroids. Continue Actos 30 mg daily, NovoLog scale before meals and at bedtime, continue Levemir 20 units twice daily, scheduled NovoLog 7 units every 6 hours. No change in medications. 5. Hypertension. Continue Lopressorwith parameters for bradycardia, Norvasc 5 mg daily. Continue Cleviprex. 6. Hyperlipidemia. Continue atorvastatin and fenofibrate 7. Hypothyroidism. Continue levothyroxine 75 g daily. 8. Bradycardia. Lopressor decreased to 25 mg twice daily . 9. GI prophylaxis. Protonix. 9. DVT prophylaxis. Lovenox. Prognosis is guarded. Impression and plan of care have been directed as dictated by the signing physician. Mihaela Roberts nurse practitioner acting as scribe for signing physician. Objective - Vital Signs Vital signs: Vital Signs Temp 97.9 F 07/09/20 08:00 Pulse 76 07/09/20 11:00 Resp 20 07/09/20 11:00 BP 149/74 07/09/20 10:30 Pulse Ox 89 L 07/09/20 11:00 Intake & Output 07/08/20 07/09/20 07/09/20 18:59 06:59 18:59 Intake Total 3524.942 7494.432 758.945 Output Total 970 1080 805 Balance 668.699 509.432 -46.055 Weight 136.3 kg Intake: IV 858 936 390 Pressure bag 33 36 15 Sodium Chloride 0.9% 1, 825 900 375 000 ml @ 75 mls/hr IV . [id number] NAEEM Rx#:[id number] Intake, IV Titration 520.699 443.432 238.945 Amount Clevidipine Butyrate 25 121.4 27.200 35.533 mg In Empty Bag 1 bag @ 1 MG/HR 2 mls/hr IV .Q24H NAEEM Rx#:[id number] fentaNYL (PF) 1,000 mcg 100 98.638 In Sodium Chloride 0.9% 80 ml @ Per Protocol IV . Q0M NAEEM Rx#:[id number] propofoL 1,000 mg In 399.299 316.232 104.774 Empty Bag 1 bag @ Titrate IV .Q0M NAEEM Rx#: [id number] Tube Feeding 120 120 50 Other 140 90 80 Output: Urine 970 1080 805 Other: Voiding Method Indwelling Catheter Indwelling Catheter Indwelling Catheter ABP, PAP, CO, CI - Last Documented Arterial Blood Pressure 180/88 - Labs CBC & Chem 7: 07/09/20 03:55 07/09/20 03:55 Labs: Abnormal Lab Results - Last 24 Hours (Table) 07/08/20 07/08/20 07/09/20 Range/Units 18:04 23:15 03:55 WBC 12.3 H (3.8-10.6) k/uL Hct 38.4 L (39.0-53.0) % Neutrophils # 11.3 H (1.3-7.7) k/uL Lymphocytes # 0.3 L (1.0-4.8) k/uL D-Dimer (<0.60) mg/L FEU ABG HCO3 (21-25) mmol/L ABG Total CO2 (19-24) mmol/L ABG O2 Saturation (94-97) % Sodium (137-145) mmol/L Chloride (98-107) mmol/L BUN (9-20) mg/dL Glucose (74-99) mg/dL POC Glucose (mg/dL) 139 H 136 H (75-99) mg/dL Calcium (8.4-10.2) mg/dL Ferritin (22.0-322.0) ng/mL Lactate Dehydrogenase (313-618) U/L Creatine Kinase (55-170) U/L Total Protein (6.3-8.2) g/dL Albumin (3.5-5.0) g/dL 07/09/20 07/09/20 07/09/20 Range/Units 03:55 03:55 06:05 WBC (3.8-10.6) k/uL Hct (39.0-53.0) % Neutrophils # (1.3-7.7) k/uL Lymphocytes # (1.0-4.8) k/uL D-Dimer 2.00 H (<0.60) mg/L FEU ABG HCO3 28 H (21-25) mmol/L ABG Total CO2 29 H (19-24) mmol/L ABG O2 Saturation 97.3 H (94-97) % Sodium 136 L (137-145) mmol/L Chloride 110 H (98-107) mmol/L BUN 45 H (9-20) mg/dL Glucose 139 H (74-99) mg/dL POC Glucose (mg/dL) (75-99) mg/dL Calcium 8.3 L (8.4-10.2) mg/dL Ferritin 518.4 H (22.0-322.0) ng/mL Lactate Dehydrogenase 949 H (313-618) U/L Creatine Kinase 52 L (55-170) U/L Total Protein 4.4 L (6.3-8.2) g/dL Albumin 2.3 L (3.5-5.0) g/dL 07/09/20 07/09/20 07/09/20 Range/Units 06:38 12:02 12:14 WBC (3.8-10.6) k/uL Hct (39.0-53.0) % Neutrophils # (1.3-7.7) k/uL Lymphocytes # (1.0-4.8) k/uL D-Dimer (<0.60) mg/L FEU ABG HCO3 (21-25) mmol/L ABG Total CO2 (19-24) mmol/L ABG O2 Saturation (94-97) % Sodium (137-145) mmol/L Chloride (98-107) mmol/L BUN (9-20) mg/dL Glucose (74-99) mg/dL POC Glucose (mg/dL) 139 H 170 H 152 H (75-99) mg/dL Calcium (8.4-10.2) mg/dL Ferritin (22.0-322.0) ng/mL Lactate Dehydrogenase (313-618) U/L Creatine Kinase (55-170) U/L Total Protein (6.3-8.2) g/dL Albumin (3.5-5.0) g/dL
[2020-07-09] MEDS: SENNOSIDES-DOCUSATE SODIUM 1 EACH TAB PO SCH (13:20)
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
[2020-07-09] MEDS: LACTATED RINGERS 1,000 ML IV SCH (17:57)
[2020-07-09 17:58] LABS: Glucose,Whole Blood 182 mg/dL (75-99)
[2020-07-09] MEDS: ASPIRIN 81 MG PO SCH (20:30)
[2020-07-09] MEDS: ATORVASTATIN 80 MG TAB PO SCH (20:30)
[2020-07-09] MEDS: allopurinoL 300 MG TAB PO SCH (20:31)
[2020-07-09] MEDS: fentaNYL (PF). 1,000 MCG in SODIUM CHLORIDE 0.9% 80 ML IV SCH (21:40)
[2020-07-09 23:14] LABS: Glucose,Whole Blood 144 mg/dL (75-99)
[2020-07-10 04:28] LABS: ALT 21 U/L (4-49); AST 30 U/L (17-59); African American GFR (CKD) >90 (>60 ml/min/1.73 sqM); Albumin 2.5 g/dL (3.5-5.0); Alkaline Phosphatase 67 U/L (38-126); Anion Gap 2 mmol/L; Blood Urea Nitrogen 46 mg/dL (9-20); C Reactive Protein 7.4 mg/L (<10.0); Calcium 8.1 mg/dL (8.4-10.2); Carbon Dioxide 28 mmol/L (22-30); Chloride 107 mmol/L (98-107); Creatine Kinase 52 U/L (55-170); Glucose 122 mg/dL (74-99); LDH 925 U/L (313-618); Non-African American GFR(CKD) 85 (>60 ml/min/1.73 sqM); Potassium 4.1 mmol/L (3.5-5.1); Sodium 137 mmol/L (137-145); Total Bilirubin 0.8 mg/dL (0.2-1.3); Total Protein 4.8 g/dL (6.3-8.2)
[2020-07-10 04:29] LABS: Basophils % (A) 0 %; Eosinophils % (A) 0 %; HCT 43.7 % (39.0-53.0); HGB 14.6 gm/dL (13.0-17.5); Lymphocytes # (A) 0.4 k/uL (1.0-4.8); Lymphocytes % (A) 3 %; MCH 29.5 pg (25.0-35.0); MCHC 33.3 g/dL (31.0-37.0); MCV 88.7 fL (80.0-100.0); Mean Platelet Volume 8.9; Monocytes # (A) 0.7 k/uL (0-1.0); Monocytes % (A) 6 %; Neutrophils # (A) 10.1 k/uL (1.3-7.7); Neutrophils % (A) 89 %; Platelet Count 176 k/uL (150-450); RBC 4.92 m/uL (4.30-5.90); RDW 15.2 % (11.5-15.5); WBC 11.3 k/uL (3.8-10.6)
[2020-07-10 04:34] LABS: ABG Base Excess 4.4 mmol/L; ABG HCO3 29 mmol/L (21-25); ABG Oxygen Saturation 86.9 % (94-97); ABG PCO2 44 mmHg (35-45); ABG PH 7.43 (7.35-7.45); ABG TCO2 30 mmol/L (19-24)
[2020-07-10 04:37] LABS: ABG PO2 53 mmHg (83-108)
[2020-07-10] MEDS: SODIUM CHLORIDE 0.9% 1,000 ML IV SCH ×2 (05:25→20:48)
[2020-07-10] MEDS: INSULIN ASPART (NovoLOG) 100 UNIT/ML VIAL SQ SCH ×8 (05:27→23:40)
[2020-07-10] MEDS: methylPREDNISolone SOD SUCCI 125 MG/2 ML VIAL IV SCH ×4 (05:28→23:40)
[2020-07-10] MEDS: LEVOTHYROXINE 75 MCG TAB PO SCH (05:28)
[2020-07-10] MEDS: INSULIN DETEMIR (LEVEMIR) 100 UNIT/ML SYR SQ SCH ×2 (06:27→20:41)
--- NOTE | 2020-07-10 07:12 | P.PN ---
Subjective Progress Note Date: 07/10/20 On 07/09/2020, I'm seeing this 80-year-old male patient in the intensive care unit and the patient is currently intubated on a mechanical ventilated because of a COVID 19 related pneumonia. The patient originally presented with hypoxic respiratory failure and his oxidation progressively got worse and the patient had to be intubated and placed on a mechanical ventilator. He is known to have chronic bronchial asthma, CAD, diabetes mellitus, hypertension, hyperlipidemia, osteoarthritis and hepatitis C. The patient is also has undergone previous coronary artery bypass surgery. The patient got intubated on 07/04/2020 and the patient has been intubated since. The patient is currently on assist control mode with a tidal volume of 450 and FiO2 of 50% with a PEEP of 16 and the rate of 28. The blood gases from today showing a pH of 7.41 with a pCO2 of 44 and pO2 of 96 and this is on FiO2 of 50%. The chest x-ray from today was noted. Chest x-ray showing diffuse breath and pulmonary infiltrates and orotracheal tube is in a good location. Blood gases was noted. The patient is currently sedated. The patient is currently on propofol which is running at 70 mg/kg per minute and fentanyl at 0.6 mcg/kg/h. The patient is receiving enteral feeding for nutritional support and the patient on vital high protein at 10 mL an hour. The patient is also Cleviprex drip for blood pressure control is currently running at 2 mg an hour. The patient is currently receiving IV Solu Medrol 60 mg every 6 hours. The patient is on Lovenox 40 mg subcu every 24 hours. The patient has received Levemir insulin 20 units twice a day along with a NovoLog 7 units every 6 hours and a scaling for both sugar control. He is also on Actos 30 mg orally on a daily basis. He has history of hypothyroidism on levot hyroxine at 75 g by mouth daily. Inflammatory markers are elevated at 1224 LDH and CRP of 6.6. Renal function is stable. Rest of the electrolytes are stable. D-dimer is at 1.92. The peak airway pressures 37 anesthetic at a pressure of 31. Or 2020, patient is being seen for a follow-up visit Covid 19 Related Pneumonia with Secondary Respiratory Failure. The Plan Is to Proceed with a PEG and Tracheostomy Tube Insertion Today. This Morning, the Patient Is Sedated and the Patient Is Currently on Propofol Running at 70 Mics for Respiratory PER Minute and the Patient Is Also on Fentanyl at 0.6 Mitral Respiratory Hour. The Patient Remains off Paralytics. This Morning, He Is an Assist-Control at the Rate of 28 with a Tidal Volume of 450 and FiO2 of 50% with a PEEP of 14. Blood Gases from Today Shows a pH of 7.43 with a PCO2 of 44 and PO2 of 53. The Chest X-Ray from Today Is Showing lower lobe active pulmonary infiltrates. Post thoracotomy. ET tube is in a good location. NG tube is in a good location. The peak airway pressure 42 anesthetic pressures around 17. The patient has excessive respiratory secretions. The plan is to proceed with a tracheostomy tube insertion of PEG tube insertion today. The patient remains on Cleviprex throughout the night and the patient was taken off the Cleviprex earlier this morning. The patient remains on IV Solu-Medrol 60 mg every 6 hours. The patient is also on Lovenox subcutaneous 40 mg every 24 hours. The blood work from today shows an LDH level of 925 with a CRP level of 7.4 and metastatic 2.46. The patient is otherwise hemodynamically stable. He has developed some edema in his extremities and the patient is currently on Lasix 40 mg IV every 24 hours and this was started yesterday. He is receiving enteral feeding for nutritional support and the patient is currently on vital high protein which is currently off pending surgical procedure. Objective - Vital Signs Vital signs: Vital Signs Temp 98.6 F 07/10/20 04:00 Pulse 78 07/10/20 06:00 Resp 20 07/10/20 06:00 BP 152/67 07/10/20 05:30 Pulse Ox 95 07/10/20 06:00 Intake & Output 07/09/20 07/10/20 07/10/20 18:59 06:59 18:59 Intake Total 5048.007 9759.4 Output Total 3205 1300 Balance -1478.055 -38.6 Weight 136.3 kg 136.8 kg Intake: IV 936 936 Pressure bag 36 36 Sodium Chloride 0.9% 1, 900 900 000 ml @ 75 mls/hr IV . [id number] [facility] Rx#:[id number] Intake, IV Titration 460.945 245.4 Amount Clevidipine Butyrate 25 57.533 45.4 mg In Empty Bag 1 bag @ 1 MG/HR 2 mls/hr IV .Q24H [facility] Rx#:[id number] fentaNYL (PF) 1,000 mcg 98.638 In Sodium Chloride 0.9% 80 ml @ Per Protocol IV . Q0M [facility] Rx#:[id number] propofoL 1,000 mg In 304.774 200 Empty Bag 1 bag @ Titrate IV .Q0M [facility] Rx#: [id number] Tube Feeding 120 50 Other 210 30 Output: Urine 3205 1300 Other: Voiding Method Indwelling Catheter Indwelling Catheter # Bowel Movements 1 ABP, PAP, CO, CI - Last Documented Arterial Blood Pressure 128/86 - Exam Sedated , currently intubated and mechanically ventilated. There is an orally placed endotracheal tube. Head exam was generally normal. There was no scleral icterus or corneal arcus. Mucous membranes were moist. Neck was supple and without jugular venous distension, thyromegaly, or carotid bruits. Carotids were easily palpable bilaterally. There was no adenopathy. Orogastric and orotracheal tube are both in place. Cardiac exam revealed the PMI to be normally situated and sized. The rhythm was regular and no extrasystoles were noted during several minutes of auscultation. The first and second heart sounds were normal and physiologic splitting of the second heart sound was noted. There were no murmurs, rubs, clicks, or gallops. Lungs reveal bilateral crackles and diffuse scattered bilateral rhonchi. There are no wheezes. Breath sounds equal bilaterally. Abdominal exam revealed normal bowel sounds. The abdomen was soft, non-tender, and without masses, organomegaly, or appreciable enlargement of the abdominal aorta. Examination of the extremities revealed easily palpable radial, femoral and pedal pulses. There was no cyanosis, clubbing or edema. Examination of the skin revealed no evidence of significant rashes, suspicious appearing nevi or other concerning lesions. Neurologic examination could not be assessed as the patient's is sedated. - Labs CBC & Chem 7: 07/10/20 03:52 07/10/20 03:52 Labs: Abnormal Lab Results - Last 24 Hours (Table) 07/09/20 07/09/20 07/09/20 Range/Units 03:55 12:02 12:14 WBC (3.8-10.6) k/uL Neutrophils # (1.3-7.7) k/uL Lymphocytes # (1.0-4.8) k/uL D-Dimer (<0.60) mg/L FEU ABG pO2 (83-108) mmHg ABG HCO3 (21-25) mmol/L ABG Total CO2 (19-24) mmol/L ABG O2 Saturation (94-97) % BUN (9-20) mg/dL Glucose (74-99) mg/dL POC Glucose (mg/dL) 170 H 152 H (75-99) mg/dL Calcium (8.4-10.2) mg/dL Ferritin 518.4 H (22.0-322.0) ng/mL Lactate Dehydrogenase (313-618) U/L Creatine Kinase (55-170) U/L Total Protein (6.3-8.2) g/dL Albumin (3.5-5.0) g/dL 07/09/20 07/09/20 07/10/20 Range/Units 17:56 23:12 03:52 WBC 11.3 H (3.8-10.6) k/uL Neutrophils # 10.1 H (1.3-7.7) k/uL Lymphocytes # 0.4 L (1.0-4.8) k/uL D-Dimer (<0.60) mg/L FEU ABG pO2 (83-108) mmHg ABG HCO3 (21-25) mmol/L ABG Total CO2 (19-24) mmol/L ABG O2 Saturation (94-97) % BUN (9-20) mg/dL Glucose (74-99) mg/dL POC Glucose (mg/dL) 182 H 144 H (75-99) mg/dL Calcium (8.4-10.2) mg/dL Ferritin (22.0-322.0) ng/mL Lactate Dehydrogenase (313-618) U/L Creatine Kinase (55-170) U/L Total Protein (6.3-8.2) g/dL Albumin (3.5-5.0) g/dL 07/10/20 07/10/20 07/10/20 Range/Units 03:52 03:52 04:29 WBC (3.8-10.6) k/uL Neutrophils # (1.3-7.7) k/uL Lymphocytes # (1.0-4.8) k/uL D-Dimer 2.46 H (<0.60) mg/L FEU ABG pO2 53 L* (83-108) mmHg ABG HCO3 29 H (21-25) mmol/L ABG Total CO2 30 H (19-24) mmol/L ABG O2 Saturation 86.9 L (94-97) % BUN 46 H (9-20) mg/dL Glucose 122 H (74-99) mg/dL POC Glucose (mg/dL) (75-99) mg/dL Calcium 8.1 L (8.4-10.2) mg/dL Ferritin (22.0-322.0) ng/mL Lactate Dehydrogenase 925 H (313-618) U/L Creatine Kinase 52 L (55-170) U/L Total Protein 4.8 L (6.3-8.2) g/dL Albumin 2.5 L (3.5-5.0) g/dL Assessment and Plan Plan: 1 Acute hypoxemic respiratory failure secondary to COVID 19 pneumonia, with significantly worsening oxygenation, status post intubation on 06/29/2020. The patient has received both convalescent plasma and Tocilizumab, currently on IV Solu 60 mg every 6 hours the patient is also on Lovenox 40 mg subcu for DVT prophylaxis. Inflammatory markers remain elevated. D-dimer is low. The patient is still sedated with a combination of propofol and fentanyl the patient is off paralytics for now. The patient is going to undergo a tracheostomy tube insertion for ongoing respiratory care due to prolonged respiratory failure. Chest x-ray findings are essentially stable. The patient has patchy but the pulmonary infiltrates involving the lung bases. He has increased rest or secretions. He will benefit from his sputum analysis. He is currently on no antibiotics. 2 History of chronic bronchial asthma. 3 Lifelong nonsmoker. 4 History of CAD, status post bypass grafting. 5 History of diabetes mellitus. 6 Hyperlipidemia by history. 7 Hypertension. 8 Hepatitis C. 9 History of pneumonia. 10 History of hypothyroidism. 11 History of osteoarthritis. Plan Keep the patient is sedated with propofol and fentanyl The patient is currently off paralytics Continue ventilator support and the ventilator setting, chest x-ray and blood gases were noted PEEP down to 14 , respiratory rate down to 20 Given Lasix 40 mg IV every 24 hours Wean off the Cleviprex, and start the patient on Norvasc 10 mg by mouth daily Continue IV Solu Medrol Continue Lovenox 40 mg subcu for DVT prophylaxis Continue enteral feeding for nutritional support, currently on hold pending PEG tube insertion Monitor inflammatory markers are improving , and the d-dimer is at 2.46 Continue the rest of the supportive care May be a good candidate for tracheostomy and PEG tube insertion due to prolonged need of intubation mechanical ventilation. Critically care evaluation more than 30 minutes
[2020-07-10] MEDS: ALBUTEROL HFA INHALER INHALATION SCH ×4 (07:45→19:36)
[2020-07-10] MEDS: ENOXAPARIN 40 MG/0.4 ML SYRINGE SQ SCH (08:41)
[2020-07-10] MEDS: PANTOPRAZOLE 40 MG/10 ML VIAL IVP SCH (08:42)
[2020-07-10] MEDS: FUROSEMIDE 10 MG/ML 4 ML VIAL IV SCH (08:42)
[2020-07-10] MEDS: SENNOSIDES-DOCUSATE SODIUM 1 EACH TAB PO SCH (08:43)
[2020-07-10] MEDS: ZINC SULFATE 220 MG CAP PO SCH (08:43)
[2020-07-10] MEDS: CHLORHEXIDINE GLUCONATE 15 ML CUP MUCOUS MEM SCH ×2 (08:43→20:39)
[2020-07-10] MEDS: ASCORBIC ACID 500 MG TAB PO SCH (08:43)
[2020-07-10] MEDS: CHOLECALCIFEROL 25 MCG (1000 IU) TABLET PO SCH (08:43)
[2020-07-10] MEDS: MULTIVITAMINS, THERA 1 EACH TAB PO SCH (08:43)
[2020-07-10] MEDS: amLODIPine 10 MG TAB PO SCH (08:43)
[2020-07-10] MEDS: guaiFENesin 600 MG TABLET.ER PO SCH ×2 (08:47→20:39)
[2020-07-10] MEDS: FENOFIBRATE 160 MG TAB PO SCH (08:48)
[2020-07-10] MEDS: PIOGLITAZONE 30 MG TAB PO SCH (08:49)
[2020-07-10] MEDS: polyethylene glycoL 3350 17 GM POWD.PACK PO SCH (08:49)
[2020-07-10] MEDS: METOPROLOL TARTRATE 25 MG TAB PO SCH ×2 (08:49→20:39)
--- NOTE | 2020-07-10 08:52 | XR ---
EXAMINATION TYPE: XR chest 1V portable DATE OF EXAM: 07/10/2020 COMPARISON: 07/09/2020 HISTORY: Shortness of breath TECHNIQUE: Single frontal view of the chest is obtained. FINDINGS: ET tube and NG tube and central line seen and there is postoperative change. Heart is enla rged. Diffuse interstitial pattern with bibasilar elevation. Heart enlarged. Underlying COPD noted. IMPRESSION: Diffuse bilateral interstitial and basilar areas of alveolar infiltrate are stable.
[2020-07-10 09:39] LABS: ABG Base Excess 3.9 mmol/L; ABG HCO3 29 mmol/L (21-25); ABG Oxygen Saturation 93.5 % (94-97); ABG PCO2 46 mmHg (35-45); ABG PO2 71 mmHg (83-108); ABG TCO2 30 mmol/L (19-24); Allen Test Performed? Yes
[2020-07-10] MEDS: fentaNYL (PF). 1,000 MCG in SODIUM CHLORIDE 0.9% 80 ML IV SCH (10:02)
[2020-07-10 11:13] LABS: Glucose,Whole Blood 127 mg/dL (75-99)
--- NOTE | 2020-07-10 14:45 | P.PN ---
Subjective Progress Note Date: 07/10/20 HISTORY OF PRESENT ILLNESS This is a 80-year-old male patient of Dr. 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 Patient states that he has had symptoms for 2 weeks which include body aches, shortness of breath coming foggy thinking. He denies any nausea, vomiting or diarrhea. He states he has had sputum production. He denies any lower extremity edema. Patient does not have home oxygen. Patient presented to [facility] emergency center for evaluation. Chest x-ray reveals bibasilar patchy opacities consistent with multifocal infection. No pleural effusions or pneumothorax. Temperature 100.1, heart rate 75, respiratory rate 24, blood pressure 125/63 and pulse ox 83% on room air. EKG was a sinus rhythm at 66 bpm. CBC was unremarkable except for lymphocytosis of 0.5. INR 1.0. Sodium 135, BUN 28 creatinine 1.68. Blood sugar 202. Lactic acid 1.6. Liver function tests were normal. LDH 730. C- reactive protein and a 5.9. ProBNP 522. 4/2: Patient is seen today on the observation unit as an overflow. Pulse ox is 84% on 15 L hyponasal cannula and nonrebreather. Patient seems to have more shortness of breath today and also complains of wheezing. No significant cough production. No fever or chills. No chest pain. WBC 11.2, hemoglobin 14.8, platelet count 233. Repeat chest x-ray reveals findings consistent with pneumonia. Pro-calcitonin 0.12. Blood sugars running in the 200s. Patient to be moved to the intensive care unit. 06/30: Patient declined significantly in the afternoon yesterday ended up on mechanical ventilation, he been sedated currently his marker are still quite bit high. Patient still required high demand O2 along with high PEEP of 15-20 to keep his pulse ox at the margin of 90 percentile. His blood sugars mildly elevated and still been managed on insulin, white blood cell is up to 13,000 today, his blood gas shows pO2 of 653 only. CO2 of 27 and pH of 7.31 creatinine has slightly improved since yesterday he C-reactive protein is up to 144 and LDH of 748. 4/4: Patient is still on mechanical ventilation is FiO2 is down to 70% still on PEEP of 18 I had long discussion with the and update her on with outpatient patient's condition still guarded this point his prognosis still not good but he has slight improvement compared to yesterday, his kidney function has improved slightly bit compared to yesterday as well. 07/02: Patient remains in the ICU. Patient is intubated and on mechanical ventilation with tidall volume 450,, FiO2 60%, PEEP of 18 which is improved from yesterday. He is pulse oxing 92-95%. He has been afebrile, heart rate in the 40s, respiratory rate 28, blood pressure 148/67. 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 Repeat lab work reveals WBC 12.4, hemoglobin 13.1, platelet count 266. Sed rate 33. D-dimer 0.45. Sodium 140, potassium 4.7, chloride 110, CO2 24, BUN 44 and creatinine 0.25. Blood sugars running between 197 and 248. Ferritin 629.9. LDH 704. He is currently nothing by mouth. 07/03: Patient has been afebrile, heart rate 61, blood pressure 177/104, pulse ox 97%. Patient remains intubated and on mechanical ventilation with tidal volume 450, FiO2 60, PEEP of 18. Repeat blood work reveals WBC 15.9, hemoglobin 14.9, platelet count 341. Lymphocytes 0.5. Sodium 140, potassium 4.9, chloride 109, CO2 22, BUN 44 and creatinine 1. LDH 951. Liver function tests normal. Blood sugars running between 221 and 299. Levemir will be increased to 20 units twice daily and scheduled NovoLog will be increased to 7 units every 6 hours along with NovoLog scale continued. Tube feedings are at goal. Repeat chest x-ray reveals diffuse pleural parenchymal changes correlate for interstitial pneumonia is stable. Dr. Beverly has stopped Nimbex and Cleviprex. 07/04: Heart rate has been running in the 40s and Lopressor decreased from 50 mg twice daily to 25 mg twice daily and parameters to hold if heart rate is less than 55. Blood pressure is still been an issue and patient was weaned off Alan viprex. She remains intubated and on mechanical ventilation with tidal volume 520, FiO2 60, PEEP of 18. Blood sugar was still running high until this morning, this morning's blood sugar 194. Adjustments were made to his insulin yesterday and tube feeding dose decreased today. Will hold on making any further changes with insulins. Repeat blood work reveals sed rate of 90, d- dimer 0.73. Sodium 141, potassium 4.6, chloride 112, CO2 25, BUN 43, creatinine 1.10. Ferritin 683.9. LDH 745. Repeat chest x-ray reveals diffuse bilateral airspace disease stable correlate for diffuse pneumonia, ARDS versus pulmonary edema. 07/05: Patient remains intubated and on mechanical ventilation with tidal volume 450, FiO2 60 and PEEP of 20. Patient has been afebrile, heart rate in the 40s, respiratory rate 28, blood pressure 134/60, pulse ox 98%. Lopressor is not been given at a lower rate due to bradycardia. Repeat blood work reveals WBC 13.6, hemoglobin 13.6, platelet count 292. Blood sugars running between 148 and 179. 07/06: Patient remains in the intensive care unit intubated and on mechanical ventilation with tidal volume 450, FiO2 60, PEEP of 20. He is on propofol and fentanyl. He is also currently on Cleviprex. Repeat chest x-ray reveals diffuse interstitial infiltrates are stable. WBC 14.2, hemoglobin 14.2, platelet count 292. Creatinine 0.97 and BUN 48. Blood sugars running between 165 an 187. Patient may require PEG tube and trach. 07/07: Repeat chest x-ray reveals mild improving nonspecific infiltrate can be compatible with atypical pneumonia. He remains in the intensive care unit intubated and on mechanical ventilation with tidal volume 450, FiO2 decreased to 50% and PEEP of 16. He is still on Cleviprex. He remains on sedation. He is tolerating tube feedings. Repeat blood work reveals WBC 9.1, hemoglobin 12.3, platelet count 244. D-dimer 1.35. BUN 41 creatinine 0.86. Blood sugars running between 146 and 168. C-reactive protein 7.9. CK 52. 07/08: Patient remains in the intensive care unit. He is on propofol and Ventolin. He is on mechanical ventilation with tidal volume 450, FiO2 50%, PEEP down to 16. Tube feedings are 10 MLS per hour at goal. POO 97%, HR improved and patient received lopressor last night and this morning. He as been afebrile. BP 148/72 and on Cleviprex. WBC 14.3. D-dimer 1.92. BUN 48 and creatinine 0.93. Calcium 8.2. Ferritin 548.2. Liver function tests are normal. LDH 1224. CK 65. C-reactive protein 6.6. 07/09: Patient remains intubated and on mechanical ventilation with tidal volume 450, FiO2 50 and PEEP of 16. Amlodipine was increased to [address] Dumont for blood pressure control. Patient remains on Cleviprex. Patient is also on fentanyl and propofol. Patient is also on tube feedings. Patient is on IV Lasix and IV Solu-Medrol. Proceeding has been consulted for PEG and trach placement. Repeat chest x-ray reveals diffuse bilateral predominantly interstitial infiltrates with basilar consolidative infiltrate stable. Patient has been afebrile, heart rate 52, blood pressure 149/74, pulse ox 89%. Repeat blood work reveals WBC 12.3, hemoglobin 13.7. D-dimer 2. Sodium 136, potassium 4.3, chloride 110, CO2 22, BUN 45 and creatinine 0.85. Sugars are running 136- 152. Ferritin 518.4. LDH 949, CK 52. C-reactive protein 7.3. 07/10: She remains intubated and on mechanical ventilation with tidal volume 380, FiO2 50, PEEP of 14 which is down from yesterday. Patient is scheduled for PEG tube and trach insertion today. He has been afebrile, heart rate in the 50s, blood pressure 129/69, pulse ox 93%. Repeat blood work reveals WBC 11.3, hemoglobin 14.6. Electrolytes normal. Creatinine 0.81. Blood sugars are running between 100 2244. LDH 925, CK 52, C-reactive protein 7.4. REVIEW OF SYSTEMS Unable to obtain due to intubation, mechanical ventilation and sedation. PHYSICAL EXAMINATION Defer to pulmonary medicine due to intubation and active Covid status. Gen: This is a morbidly obese 80-year-old male. He is resting in ICU bed intubated and on mechanical ventilation, patient appears to be comfortable. HEENT: Head is atraumatic, normocephalic. LUNGS: No intercostal retractions. NEUROLOGICAL: Patient issedated. ASSESSMENT AND PLAN 1. Acute hypoxic respiratory failure secondary to COVID19 Pneumonia. Continue mechanical ventilation. 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 Consult with Dr. Rodríguez was added for trach and PEG tube insertion scheduled for today. 2. Possible secondary bacterial gram-negative pneumonia ruled out by pulmonary medicine. 3. Acute kidney injury with chronic kidney disease stage III. 3. History of coronary artery disease status post CABG, stable. Continue aspirin 81 mg daily, Lipitor 80 mg at bedtime, Lopressor 25 mg twice daily. 4. Diabetes mellitus type 2, uncontrolled with hyperglycemia secondary to steroids. Continue Actos 30 mg daily, NovoLog scale before meals and at bedtime, continue Levemir 20 units twice daily, scheduled NovoLog 7 units every 6 hours. No change in medications. 5. Hypertension. Continue Lopressor with parameters for bradycardia, Norvasc 10 mg daily. Continue Cleviprex. 6. Hyperlipidemia. Continue atorvastatin and fenofibrate 7. Hypothyroidism. Continue levothyroxine 75 g daily. 8. Bradycardia. Lopressor 25 mg twice daily . 9. GI prophylaxis. Protonix. 9. DVT prophylaxis. Lovenox. Prognosis is guarded. Impression and plan of care have been directed as dictated by the signing physician. Mihaela Roberts nurse practitioner acting as scribe for signing physician. Objective - Vital Signs Vital signs: Vital Signs Temp 98.6 F 07/10/20 08:00 Pulse 47 L 07/10/20 10:00 Resp 5 L 07/10/20 10:00 BP 139/71 07/10/20 10:00 Pulse Ox 91 L 07/10/20 10:00 Intake & Output 07/09/20 07/10/20 07/10/20 18:59 06:59 18:59 Intake Total 7850.285 0884.4 353.491 Output Total 3205 1300 470 Balance -1478.055 -38.6 -116.509 Weight 136.3 kg 136.8 kg Intake: IV 936 936 144 Pressure bag 36 36 9 Sodium Chloride 0.9% 1, 900 900 135 000 ml @ 20 mls/hr IV . Q24H NAE[facility] Rx#:[id number] Intake, IV Titration 460.945 245.4 209.491 Amount Clevidipine Butyrate 25 57.533 45.4 8.533 mg In Empty Bag 1 bag @ 1 MG/HR 2 mls/hr IV .Q24H NAEEM Rx#:[id number] fentaNYL (PF) 1,000 mcg 98.638 In Sodium Chloride 0.9% 80 ml @ Per Protocol IV . Q0M NAE[facility] Rx#:[id number] fentaNYL (PF). 1,000 mcg 100 In Sodium Chloride 0.9% 80 ml @ Per Protocol IV . Q0M NAEEM Rx#:[id number] propofoL 1,000 mg In 304.774 200 100.958 Empty Bag 1 bag @ Titrate IV .Q0M NAEEM Rx#: [id number] Tube Feeding 120 50 Other 210 30 Output: Urine 3205 1300 470 Other: Voiding Method Indwelling Catheter Indwelling Catheter Indwelling Catheter # Voids 1 # Bowel Movements 1 ABP, PAP, CO, CI - Last Documented Arterial Blood Pressure 136/65 - Labs CBC & Chem 7: 07/10/20 03:52 07/10/20 03:52 Labs: Abnormal Lab Results - Last 24 Hours (Table) 07/09/20 07/09/20 07/09/20 Range/Units 12:02 12:14 17:56 WBC (3.8-10.6) k/uL Neutrophils # (1.3-7.7) k/uL Lymphocytes # (1.0-4.8) k/uL D-Dimer (<0.60) mg/L FEU ABG pCO2 (35-45) mmHg ABG pO2 (83-108) mmHg ABG HCO3 (21-25) mmol/L ABG Total CO2 (19-24) mmol/L ABG O2 Saturation (94-97) % BUN (9-20) mg/dL Glucose (74-99) mg/dL POC Glucose (mg/dL) 170 H 152 H 182 H (75-99) mg/dL Calcium (8.4-10.2) mg/dL Lactate Dehydrogenase (313-618) U/L Creatine Kinase (55-170) U/L Total Protein (6.3-8.2) g/dL Albumin (3.5-5.0) g/dL 07/09/20 07/10/20 07/10/20 Range/Units 23:12 03:52 03:52 WBC 11.3 H (3.8-10.6) k/uL Neutrophils # 10.1 H (1.3-7.7) k/uL Lymphocytes # 0.4 L (1.0-4.8) k/uL D-Dimer 2.46 H (<0.60) mg/L FEU ABG pCO2 (35-45) mmHg ABG pO2 (83-108) mmHg ABG HCO3 (21-25) mmol/L ABG Total CO2 (19-24) mmol/L ABG O2 Saturation (94-97) % BUN (9-20) mg/dL Glucose (74-99) mg/dL POC Glucose (mg/dL) 144 H (75-99) mg/dL Calcium (8.4-10.2) mg/dL Lactate Dehydrogenase (313-618) U/L Creatine Kinase (55-170) U/L Total Protein (6.3-8.2) g/dL Albumin (3.5-5.0) g/dL 07/10/20 07/10/20 07/10/20 Range/Units 03:52 04:29 09:30 WBC (3.8-10.6) k/uL Neutrophils # (1.3-7.7) k/uL Lymphocytes # (1.0-4.8) k/uL D-Dimer (<0.60) mg/L FEU ABG pCO2 46 H (35-45) mmHg ABG pO2 53 L* 71 L (83-108) mmHg ABG HCO3 29 H 29 H (21-25) mmol/L ABG Total CO2 30 H 30 H (19-24) mmol/L ABG O2 Saturation 86.9 L 93.5 L (94-97) % BUN 46 H (9-20) mg/dL Glucose 122 H (74-99) mg/dL POC Glucose (mg/dL) (75-99) mg/dL Calcium 8.1 L (8.4-10.2) mg/dL Lactate Dehydrogenase 925 H (313-618) U/L Creatine Kinase 52 L (55-170) U/L Total Protein 4.8 L (6.3-8.2) g/dL Albumin 2.5 L (3.5-5.0) g/dL
[2020-07-10 17:05] LABS: Glucose,Whole Blood 124 mg/dL (75-99)
[2020-07-10] MEDS ORDERED: LACTATED RINGERS 1,000 ML IV ONE (18:04)
[2020-07-10] MEDS ORDERED: fentaNYL (PF) 50 MCG/ML 2 ML AMP ONE (18:04)
[2020-07-10] MEDS ORDERED: ROCURONIUM 10 MG/ML (5 ML VIAL) IV ONE (18:04)
[2020-07-10 18:12] LABS: Ferritin 593.6 ng/mL (22.0-322.0)
--- NOTE | 2020-07-10 19:23 | P.OP ---
Date of Procedure: 07/10/20 Preoperative Diagnosis: Respiratory failure Malnutrition Postoperative Diagnosis: Respiratory failure Malnutrition Procedure(s) Performed: Tracheostomy EGD with PEG tube placement Anesthesia: ARNOLDO Surgeon: Felipe Rodríguez Estimated Blood Loss (ml): 10 Pathology: none sent Condition: stable Disposition: ICU Description of Procedure: The patient's placed on the operative table in supine position. He received general anesthesia. His neck was prepped and draped in sterile fashion. Standard Miryam incision was made approximately 2 cm above the sternal notch. Electrocautery the subcu tissues were divided. The platysma was divided and then the strap muscle divided midline. The pretracheal fat was exposed and then using a pair of weekly retractors the trachea was exposed. At this point the NG tube placed in the right mainstem bronchus. A tracheotomy then made between the second and third tracheal rings. #8 [place] flanged adjustable tracheostomy was then placed into the trachea under direct vision as the NG tube withdrawn. And has was confirmed. The skin was closed interrupted 3-0 Monocryl suture. Sterile dressing applied. Next the gastroscope placed oropharynx passed in the esophagus and stomach. A suitable gastric light reflux was seen. On the anterior abdominal wall. The skin was incised 11 blade. The needles placed and stomach under direct visualization. The needle snared and the wire was placed in the needle and wire was snared brought to the oropharynx. The PEG tube placed overtop the wire brought down and stomach. The PEG tube was secured at 3 cm radha. The one-piece bolster was applied. Patient top she will was sent back to the ICU in stable condition.
[2020-07-10] MEDS: ATORVASTATIN 80 MG TAB PO SCH (20:39)
[2020-07-10] MEDS: ASPIRIN 81 MG PO SCH (20:39)
[2020-07-10] MEDS: LACTATED RINGERS 1,000 ML IV SCH (20:42)
[2020-07-10] MEDS: allopurinoL 300 MG TAB PO SCH (21:54)
[2020-07-10 23:13] LABS: Glucose,Whole Blood 138 mg/dL (75-99)
[2020-07-11] MEDS: fentaNYL (PF). 1,000 MCG in SODIUM CHLORIDE 0.9% 80 ML IV SCH ×3 (00:50→21:06)
[2020-07-11 04:04] LABS: ABG Base Excess 4.7 mmol/L; ABG HCO3 29 mmol/L (21-25); ABG Oxygen Saturation 91.4 % (94-97); ABG PCO2 44 mmHg (35-45); ABG PH 7.43 (7.35-7.45); ABG PO2 62 mmHg (83-108); ABG TCO2 30 mmol/L (19-24); Allen Test Performed? Yes
[2020-07-11 04:27] LABS: HCT 43.9 % (39.0-53.0); HGB 15.2 gm/dL (13.0-17.5); MCH 30.9 pg (25.0-35.0); MCHC 34.7 g/dL (31.0-37.0); MCV 89.2 fL (80.0-100.0); Mean Platelet Volume 8.9; Platelet Count 149 k/uL (150-450); RBC 4.92 m/uL (4.30-5.90); RDW 15.3 % (11.5-15.5); WBC 7.2 k/uL (3.8-10.6)
[2020-07-11 04:56] LABS: ALT 22 U/L (4-49); African American GFR (CKD) >90 (>60 ml/min/1.73 sqM); Albumin 2.6 g/dL (3.5-5.0); Anion Gap 5 mmol/L; Blood Urea Nitrogen 47 mg/dL (9-20); C Reactive Protein 15.1 mg/L (<10.0); Calcium 7.9 mg/dL (8.4-10.2); Carbon Dioxide 25 mmol/L (22-30); Chloride 107 mmol/L (98-107); Creatine Kinase 81 U/L (55-170); Glucose 135 mg/dL (74-99); Non-African American GFR(CKD) 83 (>60 ml/min/1.73 sqM); Sodium 137 mmol/L (137-145); Total Bilirubin 0.7 mg/dL (0.2-1.3); Total Protein 4.8 g/dL (6.3-8.2)
[2020-07-11 05:21] LABS: AST 38 U/L (17-59); Alkaline Phosphatase 73 U/L (38-126); LDH 1073 U/L (313-618); Potassium 3.9 mmol/L (3.5-5.1)
[2020-07-11] MEDS: methylPREDNISolone SOD SUCCI 125 MG/2 ML VIAL IV SCH (06:13)
[2020-07-11] MEDS: INSULIN ASPART (NovoLOG) 100 UNIT/ML VIAL SQ SCH ×6 (06:13→17:51)
[2020-07-11] MEDS: INSULIN DETEMIR (LEVEMIR) 100 UNIT/ML SYR SQ SCH ×2 (06:14→20:16)
[2020-07-11] MEDS: LEVOTHYROXINE 75 MCG TAB PO SCH (06:14)
[2020-07-11] MEDS ORDERED: POTASSIUM BICARBONATE/CIT AC 20 MEQ TABLET.EFF NG-TUBE SCH ×2 (07:00→17:00)
[2020-07-11] MEDS: ALBUTEROL HFA INHALER INHALATION SCH ×4 (07:41→20:59)
[2020-07-11 07:54] LABS: Band Neutrophils % 17 %; Lymphocytes # (M) 0.14 k/uL (1.0-4.8); Metamyelocytes # (M) 0.14 k/uL (0); Metamyelocytes % 2 %; Monocytes # (M) 0.36 k/uL (0-1.0); Neutrophils % (M) 75 %; Nucleated Red Blood Cells 0 /100 WBC (0-0); Total Cells Counted 200
[2020-07-11 07:55] LABS: Toxic Vacuolation Present
--- NOTE | 2020-07-11 08:28 | P.PN ---
Subjective Progress Note Date: 07/11/20 On 07/09/2020, I'm seeing this 80-year-old male patient in the intensive care unit and the patient is currently intubated on a mechanical ventilated because of a COVID 19 related pneumonia. The patient originally presented with hypoxic respiratory failure and his oxidation progressively got worse and the patient had to be intubated and placed on a mechanical ventilator. He is known to have chronic bronchial asthma, CAD, diabetes mellitus, hypertension, hyperlipidemia, osteoarthritis and hepatitis C. The patient is also has undergone previous coronary artery bypass surgery. The patient got intubated on 07/04/2020 and the patient has been intubated since. The patient is currently on assist control mode with a tidal volume of 450 and FiO2 of 50% with a PEEP of 16 and the rate of 28. The blood gases from today showing a pH of 7.41 with a pCO2 of 44 and pO2 of 96 and this is on FiO2 of 50%. The chest x-ray from today was noted. Chest x-ray showing diffuse breath and pulmonary infiltrates and orotracheal tube is in a good location. Blood gases was noted. The patient is currently sedated. The patient is currently on propofol which is running at 70 mg/kg per minute and fentanyl at 0.6 mcg/kg/h. The patient is receiving enteral feeding for nutritional support and the patient on vital high protein at 10 mL an hour. The patient is also Cleviprex drip for blood pressure control is currently running at 2 mg an hour. The patient is currently receiving IV Solu Medrol 60 mg every 6 hours. The patient is on Lovenox 40 mg subcu every 24 hours. The patient has received Levemir insulin 20 units twice a day along with a NovoLog 7 units every 6 hours and a scaling for both sugar control. He is also on Actos 30 mg orally on a daily basis. He has history of hypothyroidism on levo thyroxine at 75 g by mouth daily. Inflammatory markers are elevated at 1224 LDH and CRP of 6.6. Renal function is stable. Rest of the electrolytes are stable. D-dimer is at 1.92. The peak airway pressures 37 anesthetic at a pressure of 31. Or 2020, patient is being seen for a follow-up visit Covid 19 Related Pneumonia with Secondary Respiratory Failure. The Plan Is to Proceed with a PEG and Tracheostomy Tube Insertion Today. This Morning, the Patient Is Sedated and the Patient Is Currently on Propofol Running at 70 Mics for Respiratory PER Minute and the Patient Is Also on Fentanyl at 0.6 Mitral Respiratory Hour. The Patient Remains off Paralytics. This Morning, He Is an Assist-Control at the Rate of 28 with a Tidal Volume of 450 and FiO2 of 50% with a PEEP of 14. Blood Gases from Today Shows a pH of 7.43 with a PCO2 of 44 and PO2 of 53. The Chest X-Ray from Today Is Showing lower lobe active pulmonary infiltrates. Post thoracotomy. ET tube is in a good location. NG tube is in a good location. The peak airway pressure 42 anesthetic pressures around 17. The patient has excessive respiratory secretions. The plan is to proceed with a tracheostomy tube insertion of PEG tube insertion today. The patient remains on Cleviprex throughout the night and the patient was taken off the Cleviprex earlier this morning. The patient remains on IV Solu-Medrol 60 mg every 6 hours. The patient is also on Lovenox subcutaneous 40 mg every 24 hours. The blood work from today shows an LDH level of 925 with a CRP level of 7.4 and metastatic 2.46. The patient is otherwise hemodynamically stable. He has developed some edema in his extremities and the patient is currently on Lasix 40 mg IV every 24 hours and this was started yesterday. He is receiving enteral feeding for nutritional support and the patient is currently on vital high protein which is currently off pending surgical procedure. 07/11/2020, the patient is post tracheostomy tube insertion and a PEG tube insertion as the patient is going to need prolonged respiratory care. At this point in time, he is an assist-control mode with a tidal volume of 400 and a PEEP of 12 and FiO2 of 50% and a rate of 20. The chest x-ray from today shows that the tracheostomy tube is in a good location. Some limited infiltration of the lung bases. There is adequate aeration of the upper part of the lungs bilaterally. The blood gases from today shows a pH of 7.43 with a pCO2 of 44 and pO2 of 62. The patient was encountering elevated airway pressures yesterday the peak pressure was elevated and I thought this was associated related to secretions. The peak airway pressure today is 26 post tracheostomy tube i nsertion. The patient is on sedation. The patient is on propofol at 70 mcg/kg per minute and the patient is also on fentanyl and 0.2 mcg/kg/h. The patient is not receiving any paralytics for now. No feeding for now post extubation insertion. No other issues for now. He remains off Cleviprex. He is hemodynamically stable. Inflammatory markers were essentially dropping on earlier evaluation and I've also started the patient on Lasix. On today's evaluation, the LDH is 1073, slightly higher and his CRP is at 15, slightly higher, his d-dimer is at 1.77, slightly lower. As for the fluid balance, the patient is -3 L over the past 24 hours and the patient was given diuretics and the patient is receiving Lasix 40 mg IV every 24 hours. He is hemodynamically stable. The plan for today is to give the patient lower sedation and try to evaluate his mental status. The plan is to gradually wean off his propofol. Objective - Vital Signs Vital signs: Vital Signs Temp 99.2 F 07/11/20 04:00 Pulse 49 L 07/11/20 08:00 Resp 22 07/11/20 08:00 BP 108/64 07/11/20 07:00 Pulse Ox 87 L 07/11/20 08:00 Intake & Output 07/10/20 07/11/20 07/11/20 18:59 06:59 18:59 Intake Total 1141.380 672.067 23 Output Total 3820 1135 60 Balance -2678.620 -462.933 -37 Weight 136 kg Intake: IV 631 276 23 Pressure bag 36 36 3 Sodium Chloride 0.9% 1, 295 240 20 000 ml @ 20 mls/hr IV . Q24H [facility] Rx#:[id number] Intake, IV Titration 510.380 396.067 Amount Clevidipine Butyrate 25 8.533 mg In Empty Bag 1 bag @ 1 MG/HR 2 mls/hr IV .Q24H [facility] Rx#:[id number] fentaNYL (PF). 1,000 mcg 100 196.067 In Sodium Chloride 0.9% 80 ml @ Per Protocol IV . Q0M [facility] Rx#:[id number] propofoL 1,000 mg In 401.847 200 Empty Bag 1 bag @ Titrate IV .Q0M [facility] Rx#: [id number] Output: Urine 2420 1125 60 Stool 1400 Estimated Blood Loss 10 Other: Voiding Method Indwelling Catheter Indwelling Catheter # Voids 1 1 ABP, PAP, CO, CI - Last Documented Arterial Blood Pressure 105/54 - Exam Sedated , currently intubated and mechanically ventilated. There is a combination hormone a tracheostomy tube in place extra long. No bleeding from the stoma Head exam was generally normal. There was no scleral icterus or corneal arcus. Mucous membranes were moist. Neck was supple and without jugular venous distension, thyromegaly, or carotid bruits. Carotids were easily palpable bilaterally. There was no adenopathy. Orogastric and orotracheal tube are both in place.tracheostomy tube in place Cardiac exam revealed the PMI to be normally situated and sized. The rhythm was regular and no extrasystoles were noted during several minutes of auscultation. The first and second heart sounds were normal and physiologic splitting of the second heart sound was noted. There were no murmurs, rubs, clicks, or gallops. Lungs reveal bilateral crackles and diffuse scattered bilateral rhonchi. There are no wheezes. Breath sounds equal bilaterally. Abdominal exam revealed normal bowel sounds. The abdomen was soft, non-tender, and without masses, organomegaly, or appreciable enlargement of the abdominal aorta. PEG tube site is dry clean and intact Examination of the extremities revealed easily palpable radial, femoral and pedal pulses. There was no cyanosis, clubbing or edema. Examination of the skin revealed no evidence of significant rashes, suspicious appearing nevi or other concerning lesions. Neurologic examination could not be assessed as the patient's is sedated. - Labs CBC & Chem 7: 07/11/20 03:50 07/11/20 03:50 Labs: Abnormal Lab Results - Last 24 Hours (Table) 07/10/20 07/10/20 07/10/20 Range/Units 03:52 09:30 11:11 Plt Count (150-450) k/uL Lymphocytes # (Manual) (1.0-4.8) k/uL Metamyelocytes # (Man) (0) k/uL D-Dimer (<0.60) mg/L FEU ABG pCO2 46 H (35-45) mmHg ABG pO2 71 L (83-108) mmHg ABG HCO3 29 H (21-25) mmol/L ABG Total CO2 30 H (19-24) mmol/L ABG O2 Saturation 93.5 L (94-97) % BUN (9-20) mg/dL Glucose (74-99) mg/dL POC Glucose (mg/dL) 127 H (75-99) mg/dL Calcium (8.4-10.2) mg/dL Ferritin 593.6 H (22.0-322.0) ng/mL Lactate Dehydrogenase (313-618) U/L C-Reactive Protein (<10.0) mg/L Total Protein (6.3-8.2) g/dL Albumin (3.5-5.0) g/dL 07/10/20 07/10/20 07/11/20 Range/Units 17:03 23:11 03:50 Plt Count 149 L (150-450) k/uL Lymphocytes # (Manual) 0.14 L (1.0-4.8) k/uL Metamyelocytes # (Man) 0.14 H (0) k/uL D-Dimer (<0.60) mg/L FEU ABG pCO2 (35-45) mmHg ABG pO2 (83-108) mmHg ABG HCO3 (21-25) mmol/L ABG Total CO2 (19-24) mmol/L ABG O2 Saturation (94-97) % BUN (9-20) mg/dL Glucose (74-99) mg/dL POC Glucose (mg/dL) 124 H 138 H (75-99) mg/dL Calcium (8.4-10.2) mg/dL Ferritin (22.0-322.0) ng/mL Lactate Dehydrogenase (313-618) U/L C-Reactive Protein (<10.0) mg/L Total Protein (6.3-8.2) g/dL Albumin (3.5-5.0) g/dL 07/11/20 07/11/20 07/11/20 Range/Units 03:50 03:50 03:58 Plt Count (150-450) k/uL Lymphocytes # (Manual) (1.0-4.8) k/uL Metamyelocytes # (Man) (0) k/uL D-Dimer 1.77 H (<0.60) mg/L FEU ABG pCO2 (35-45) mmHg ABG pO2 62 L (83-108) mmHg ABG HCO3 29 H (21-25) mmol/L ABG Total CO2 30 H (19-24) mmol/L ABG O2 Saturation 91.4 L (94-97) % BUN 47 H (9-20) mg/dL Glucose 135 H (74-99) mg/dL POC Glucose (mg/dL) (75-99) mg/dL Calcium 7.9 L (8.4-10.2) mg/dL Ferritin (22.0-322.0) ng/mL Lactate Dehydrogenase 1073 H (313-618) U/L C-Reactive Protein 15.1 H (<10.0) mg/L Total Protein 4.8 L (6.3-8.2) g/dL Albumin 2.6 L (3.5-5.0) g/dL Microbiology - Last 24 Hours (Table) 07/10/20 11:51 Gram Stain - Preliminary Sputum Sputum Culture - Preliminary Assessment and Plan Plan: 1 Acute hypoxemic respiratory failure secondary to COVID 19 pneumonia, with significantly worsening oxygenation, status post intubation on 06/29/2020. The patient has received both convalescent plasma and Tocilizumab, currently on IV Solu 60 mg every 6 hours the patient is also on Lovenox 40 mg subcu for DVT prophylaxis. Inflammatory markers are being monitored. D-dimer is low. The patient is still sedated with a combination of propofol and fentanyl the patient is off paralytics for now. Patient is post tracheostomy tube insertion and a PEG tube insertion for prolonged need for respiratory support with mechanical ventilator. No mitral for weaning in terms of his FiO2 and PEEP as the patient's pO2 currently is in the low 60s. His impression is improved considerably. 2 History of chronic bronchial asthma. 3 Lifelong nonsmoker. 4 History of CAD, status post bypass grafting. 5 History of diabetes mellitus. 6 Hyperlipidemia by history. 7 Hypertension. 8 Hepatitis C. 9 History of pneumonia. 10 History of hypothyroidism. 11 History of osteoarthritis. Plan Wean propofol and fentanyl The patient is currently off paralytics Continue ventilator support and the ventilator setting, chest x-ray and blood g ases were noted PEEP down to 12 , Fio2 50 Given Lasix 40 mg IV every 24 hours Wean off the Cleviprex, on Norvasc 10 mg by mouth daily stop IV Solu Medrol and start prednisone 40 daily per PEG Continue Lovenox 40 mg subcu for DVT prophylaxis Continue enteral feeding for nutritional support, post PEG tube insertion Monitor inflammatory markers are improving , and the d-dimer is at 1.77 Continue the rest of the supportive care Important to evaluate the patient's mental status as the patient is coming off the sedation Critically care evaluation more than 30 minutes Time with Patient: Greater than 30
[2020-07-11] MEDS: ENOXAPARIN 40 MG/0.4 ML SYRINGE SQ SCH (09:24)
[2020-07-11] MEDS: FUROSEMIDE 10 MG/ML 4 ML VIAL IV SCH (09:24)
[2020-07-11] MEDS: CHLORHEXIDINE GLUCONATE 15 ML CUP MUCOUS MEM SCH ×2 (09:24→20:16)
[2020-07-11] MEDS: PANTOPRAZOLE 40 MG/10 ML VIAL IVP SCH (09:24)
[2020-07-11] MEDS: predniSONE 20 MG TAB PO SCH (09:25)
[2020-07-11] MEDS: ASCORBIC ACID 500 MG TAB PO SCH (09:25)
[2020-07-11] MEDS: CHOLECALCIFEROL 25 MCG (1000 IU) TABLET PO SCH (09:25)
[2020-07-11] MEDS: MULTIVITAMINS, THERA 1 EACH TAB PO SCH (09:25)
[2020-07-11] MEDS: ZINC SULFATE 220 MG CAP PO SCH (09:25)
[2020-07-11] MEDS: amLODIPine 10 MG TAB PO SCH (09:25)
[2020-07-11] MEDS: guaiFENesin 600 MG TABLET.ER PO SCH ×2 (09:25→20:16)
[2020-07-11] MEDS: FENOFIBRATE 160 MG TAB PO SCH (09:26)
[2020-07-11] MEDS: PIOGLITAZONE 30 MG TAB PO SCH (09:26)
--- NOTE | 2020-07-11 09:38 | XR ---
EXAMINATION TYPE: XR chest 1V portable DATE OF EXAM: 07/11/2020 COMPARISON: Chest x-ray 07/10/2020 HISTORY: Abnormal chest x-ray, lung assessment, tracheostomy tube placement TECHNIQUE: Single frontal view of the chest is obtained. FINDINGS: There is been interval removal of endotracheal tube, NG tube, placement of a tracheostomy tube is noted within the tube overlying the tracheal air column. Left subclavian central venous gita ter is present, distal tip is within the right atrium. There are overlying leads. No evident pneumoth orax. Patchy bibasilar density, interstitial prominence persist. IMPRESSION: Interval tracheostomy tube placement, correlate for pneumonia, edema
[2020-07-11] MEDS: SENNOSIDES-DOCUSATE SODIUM 1 EACH TAB PO SCH (10:28)
[2020-07-11] MEDS: polyethylene glycoL 3350 17 GM POWD.PACK PO SCH (10:28)
[2020-07-11] MEDS: METOPROLOL TARTRATE 25 MG TAB PO SCH ×2 (10:28→20:17)
--- NOTE | 2020-07-11 11:02 | P.PN ---
Subjective Progress Note Date: 07/11/20 CHIEF COMPLAINT: Respiratory failure HISTORY OF PRESENT ILLNESS: Patient remains in the ICU and intubated. He is status post tracheostomy and PEG tube placement. Tube feedings are scheduled for today. Patient is undergoing a sedation holiday. Afebrile. WBC 7.2 PHYSICAL EXAM: VITAL SIGNS: Reviewed. GENERAL: Well-developed in no acute distress. HEENT: No sclera icterus. Extraocular movements grossly intact. Moist buccal mucosa. Head is atraumatic, normocephalic. ABDOMEN: Soft. Nondistended. Nontender. NEUROLOGIC: Alert and oriented. Cranial nerves II through XII grossly intact. ASSESSMENT: 1. Acute hypoxic respiratory failure status post tracheostomy placement 2. Covid 19 pneumonia 3. Severe protein calorie malnutrition status post PEG tube placement PLAN: -Continue ICU management -Continue supportive care -Start tube feedings per dietitian recommendations Physician Information Security Consultant note has been reviewed by physician. Signing provider agrees with the documented findings, assessment, and plan of care. Objective - Vital Signs Vital signs: Vital Signs Temp 99.2 F 07/11/20 04:00 Pulse 49 L 07/11/20 08:00 Resp 22 07/11/20 08:00 BP 108/64 07/11/20 07:00 Pulse Ox 87 L 07/11/20 08:00 Intake & Output 07/10/20 07/11/20 07/11/20 18:59 06:59 18:59 Intake Total 1141.380 672.067 209.632 Output Total 3820 1135 60 Balance -2678.620 -462.933 149.632 Weight 136 kg Intake: IV 631 276 23 Pressure bag 36 36 3 Sodium Chloride 0.9% 1, 295 240 20 000 ml @ 20 mls/hr IV . Q24H [facility] Rx#:[id number] Intake, IV Titration 510.380 396.067 186.632 Amount Clevidipine Butyrate 25 8.533 mg In Empty Bag 1 bag @ 1 MG/HR 2 mls/hr IV .Q24H [facility] Rx#:[id number] fentaNYL (PF). 1,000 mcg 100 196.067 54.264 In Sodium Chloride 0.9% 80 ml @ Per Protocol IV . Q0M [facility] Rx#:[id number] propofoL 1,000 mg In 401.847 200 132.368 Empty Bag 1 bag @ Titrate IV .Q0M [facility] Rx#: [id number] Output: Urine 2420 1125 60 Stool 1400 Estimated Blood Loss 10 Other: Voiding Method Indwelling Catheter Indwelling Catheter # Voids 1 1 ABP, PAP, CO, CI - Last Documented Arterial Blood Pressure 105/54 - Labs CBC & Chem 7: 07/11/20 03:50 07/11/20 03:50 Labs: Abnormal Lab Results - Last 24 Hours (Table) 07/10/20 07/10/20 07/10/20 Range/Units 03:52 11:11 17:03 Plt Count (150-450) k/uL Lymphocytes # (Manual) (1.0-4.8) k/uL Metamyelocytes # (Man) (0) k/uL D-Dimer (<0.60) mg/L FEU ABG pO2 (83-108) mmHg ABG HCO3 (21-25) mmol/L ABG Total CO2 (19-24) mmol/L ABG O2 Saturation (94-97) % BUN (9-20) mg/dL Glucose (74-99) mg/dL POC Glucose (mg/dL) 127 H 124 H (75-99) mg/dL Calcium (8.4-10.2) mg/dL Ferritin 593.6 H (22.0-322.0) ng/mL Lactate Dehydrogenase (313-618) U/L C-Reactive Protein (<10.0) mg/L Total Protein (6.3-8.2) g/dL Albumin (3.5-5.0) g/dL 07/10/20 07/11/20 07/11/20 Range/Units 23:11 03:50 03:50 Plt Count 149 L (150-450) k/uL Lymphocytes # (Manual) 0.14 L (1.0-4.8) k/uL Metamyelocytes # (Man) 0.14 H (0) k/uL D-Dimer 1.77 H (<0.60) mg/L FEU ABG pO2 (83-108) mmHg ABG HCO3 (21-25) mmol/L ABG Total CO2 (19-24) mmol/L ABG O2 Saturation (94-97) % BUN (9-20) mg/dL Glucose (74-99) mg/dL POC Glucose (mg/dL) 138 H (75-99) mg/dL Calcium (8.4-10.2) mg/dL Ferritin (22.0-322.0) ng/mL Lactate Dehydrogenase (313-618) U/L C-Reactive Protein (<10.0) mg/L Total Protein (6.3-8.2) g/dL Albumin (3.5-5.0) g/dL 07/11/20 07/11/20 Range/Units 03:50 03:58 Plt Count (150-450) k/uL Lymphocytes # (Manual) (1.0-4.8) k/uL Metamyelocytes # (Man) (0) k/uL D-Dimer (<0.60) mg/L FEU ABG pO2 62 L (83-108) mmHg ABG HCO3 29 H (21-25) mmol/L ABG Total CO2 30 H (19-24) mmol/L ABG O2 Saturation 91.4 L (94-97) % BUN 47 H (9-20) mg/dL Glucose 135 H (74-99) mg/dL POC Glucose (mg/dL) (75-99) mg/dL Calcium 7.9 L (8.4-10.2) mg/dL Ferritin (22.0-322.0) ng/mL Lactate Dehydrogenase 1073 H (313-618) U/L C-Reactive Protein 15.1 H (<10.0) mg/L Total Protein 4.8 L (6.3-8.2) g/dL Albumin 2.6 L (3.5-5.0) g/dL Microbiology - Last 24 Hours (Table) 07/10/20 11:51 Gram Stain - Preliminary Sputum Sputum Culture - Preliminary
[2020-07-11 11:13] LABS: Glucose,Whole Blood 132 mg/dL (75-99)
--- NOTE | 2020-07-11 11:24 | P.PN ---
Subjective Progress Note Date: 07/11/20 HISTORY OF PRESENT ILLNESS This is a 80-year-old male patient of Dr. 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 Patient states that he has had symptoms for 2 weeks which include body aches, shortness of breath coming foggy thinking. He denies any nausea, vomiting or diarrhea. He states he has had sputum production. He denies any lower extremity edema. Patient does not have home oxygen. Patient presented to [facility] emergency center for evaluation. Chest x-ray reveals bibasilar patchy opacities consistent with multifocal infection. No pleural effusions or pneumothorax. Temperature 100.1, heart rate 75, respiratory rate 24, blood pressure 125/63 and pulse ox 83% on room air. EKG was a sinus rhythm at 66 bpm. CBC was unremarkable except for lymphocytosis of 0.5. INR 1.0. Sodium 135, BUN 28 creatinine 1.68. Blood sugar 202. Lactic acid 1.6. Liver function tests were normal. LDH 730. C- reactive protein and a 5.9. ProBNP 522. 4/2: Patient is seen today on the observation unit as an overflow. Pulse ox is 84% on 15 L hyponasal cannula and nonrebreather. Patient seems to have more shortness of breath today and also complains of wheezing. No significant cough production. No fever or chills. No chest pain. WBC 11.2, hemoglobin 14.8, platelet count 233. Repeat chest x-ray reveals findings consistent with pneumonia. Pro-calcitonin 0.12. Blood sugars running in the 200s. Patient to be moved to the intensive care unit. 06/30: Patient declined significantly in the afternoon yesterday ended up on mechanical ventilation, he been sedated currently his marker are still quite bit high. Patient still required high demand O2 along with high PEEP of 15-20 to keep his pulse ox at the margin of 90 percentile. His blood sugars mildly elevated and still been managed on insulin, white blood cell is up to 13,000 today, his blood gas shows pO2 of 653 only. CO2 of 27 and pH of 7.31 creatinine has slightly improved since yesterday he C-reactive protein is up to 144 and LDH of 748. 4/4: Patient is still on mechanical ventilation is FiO2 is down to 70% still on PEEP of 18 I had long discussion with the and update her on with outpatient patient's condition still guarded this point his prognosis still not good but he has slight improvement compared to yesterday, his kidney function has improved slightly bit compared to yesterday as well. 07/02: Patient remains in the ICU. Patient is intubated and on mechanical ventilation with tidall volume 450,, FiO2 60%, PEEP of 18 which is improved from yesterday. He is pulse oxing 92-95%. He has been afebrile, heart rate in the 40s, respiratory rate 28, blood pressure 148/67. closet organizer is sinus bradycardia. Repeat lab work reveals WBC 12.4, hemoglobin 13.1, platelet count 266. Sed rate 33. D-dimer 0.45. Sodium 140, potassium 4.7, chloride 110, CO2 24, BUN 44 and creatinine 0.25. Blood sugars running between 197 and 248. Ferritin 629.9. LDH 704. He is currently nothing by mouth. 07/03: Patient has been afebrile, heart rate 61, blood pressure 177/104, pulse ox 97%. Patient remains intubated and on mechanical ventilation with tidal volume 450, FiO2 60, PEEP of 18. Repeat blood work reveals WBC 15.9, hemoglobin 14.9, platelet count 341. Lymphocytes 0.5. Sodium 140, potassium 4.9, chloride 109, CO2 22, BUN 44 and creatinine 1. LDH 951. Liver function tests normal. Blood sugars running between 221 and 299. Levemir will be increased to 20 units twice daily and scheduled NovoLog will be increased to 7 units every 6 hours along with NovoLog scale continued. Tube feedings are at goal. Repeat chest x-ray reveals diffuse pleural parenchymal changes correlate for interstitial pneumonia is stable. Dr. Beverly has stopped Nimbex and Cleviprex. 07/04: Heart rate has been running in the 40s and Lopressor decreased from 50 mg twice daily to 25 mg twice daily and parameters to hold if heart rate is less than 55. Blood pressure is still been an issue and patient was weaned off Alan viprex. She remains intubated and on mechanical ventilation with tidal volume 520, FiO2 60, PEEP of 18. Blood sugar was still running high until this morning, this morning's blood sugar 194. Adjustments were made to his insulin yesterday and tube feeding dose decreased today. Will hold on making any further changes with insulins. Repeat blood work reveals sed rate of 90, d- dimer 0.73. Sodium 141, potassium 4.6, chloride 112, CO2 25, BUN 43, creatinine 1.10. Ferritin 683.9. LDH 745. Repeat chest x-ray reveals diffuse bilateral airspace disease stable correlate for diffuse pneumonia, ARDS versus pulmonary edema. 07/05: Patient remains intubated and on mechanical ventilation with tidal volume 450, FiO2 60 and PEEP of 20. Patient has been afebrile, heart rate in the 40s, respiratory rate 28, blood pressure 134/60, pulse ox 98%. Lopressor is not been given at a lower rate due to bradycardia. Repeat blood work reveals WBC 13.6, hemoglobin 13.6, platelet count 292. Blood sugars running between 148 and 179. 07/06: Patient remains in the intensive care unit intubated and on mechanical ventilation with tidal volume 450, FiO2 60, PEEP of 20. He is on propofol and fentanyl. He is also currently on Cleviprex. Repeat chest x-ray reveals diffuse interstitial infiltrates are stable. WBC 14.2, hemoglobin 14.2, platelet count 292. Creatinine 0.97 and BUN 48. Blood sugars running between 165 an 187. Patient may require PEG tube and trach. 07/07: Repeat chest x-ray reveals mild improving nonspecific infiltrate can be compatible with atypical pneumonia. He remains in the intensive care unit intubated and on mechanical ventilation with tidal volume 450, FiO2 decreased to 50% and PEEP of 16. He is still on Cleviprex. He remains on sedation. He is tolerating tube feedings. Repeat blood work reveals WBC 9.1, hemoglobin 12.3, platelet count 244. D-dimer 1.35. BUN 41 creatinine 0.86. Blood sugars running between 146 and 168. C-reactive protein 7.9. CK 52. 07/08: Patient remains in the intensive care unit. He is on propofol and Ventolin. He is on mechanical ventilation with tidal volume 450, FiO2 50%, PEEP down to 16. Tube feedings are 10 MLS per hour at goal. POO 97%, HR improved and patient received lopressor last night and this morning. He as been afebrile. BP 148/72 and on Cleviprex. WBC 14.3. D-dimer 1.92. BUN 48 and creatinine 0.93. Calcium 8.2. Ferritin 548.2. Liver function tests are normal. LDH 1224. CK 65. C-reactive protein 6.6. 07/09: Patient remains intubated and on mechanical ventilation with tidal volume 450, FiO2 50 and PEEP of 16. Amlodipine was increased to [address] Dumont for blood pressure control. Patient remains on Cleviprex. Patient is also on fentanyl and propofol. Patient is also on tube feedings. Patient is on IV Lasix and IV Solu-Medrol. Proceeding has been consulted for PEG and trach placement. Repeat chest x-ray reveals diffuse bilateral predominantly interstitial infiltrates with basilar consolidative infiltrate stable. Patient has been afebrile, heart rate 52, blood pressure 149/74, pulse ox 89%. Repeat blood work reveals WBC 12.3, hemoglobin 13.7. D-dimer 2. Sodium 136, potassium 4.3, chloride 110, CO2 22, BUN 45 and creatinine 0.85. Sugars are running 136- 152. Ferritin 518.4. LDH 949, CK 52. C-reactive protein 7.3. 07/10: She remains intubated and on mechanical ventilation with tidal volume 380, FiO2 50, PEEP of 14 which is down from yesterday. Patient is scheduled for PEG tube and trach insertion today. He has been afebrile, heart rate in the 50s, blood pressure 129/69, pulse ox 93%. Repeat blood work reveals WBC 11.3, hemoglobin 14.6. Electrolytes normal. Creatinine 0.81. Blood sugars are running between 100 2244. LDH 925, CK 52, C-reactive protein 7.4. 07/11: Patient underwent trach and PEG tube placement yesterday with Dr. Rodríguez. He is currently on vent settings with tidal volume 650, FiO2 of 50%, PEEP of 12. Patient has been afebrile, heart rate in the 40s and 50s, blood pressure 105/54, pulse ox 87%. Repeat blood work reveals platelet count 149. Electrolytes normal, BUN 47 creatinine 0.85. Blood sugars running between 124 and 138. LDH 1073, CK 81, C-reactive protein 15.1. D-dimer 1.77. Prognosis remains guarded. REVIEW OF SYSTEMS Unable to obtain due to intubation, mechanical ventilation and sedation. PHYSICAL EXAMINATION Defer to pulmonary medicine due to intubation and active Covid status. Gen: This is a morbidly obese 80-year-old male. He is resting in ICU bed with trachea, mechanical ventilation. HEENT: Head is atraumatic, normocephalic. LUNGS: No intercostal retractions. NEUROLOGICAL: Patient issedated. ASSESSMENT AND PLAN 1. Acute hypoxic respiratory failure secondary to COVID19 Pneumonia. Continue mechanical ventilation. Continue Solu-Medrol 60 mg IV every 6 hours, Lovenox 40 mg daily, albuterol inhaler 2 puffs every 6 hours, vitamins C, vitamin D, zinc, Symbicort twice daily, continue current set up of his vent management patient is managed by sole trimmer. Consult with Dr. Rodríguez status posttrach and PEG tube insertion. 2. Possible secondary bacterial gram-negative pneumonia ruled out by pulmonary medicine. 3. Acute kidney injury with chronic kidney disease stage III. 3. History of coronary artery disease status post CABG, stable. Continue aspirin 81 mg daily, Lipitor 80 mg at bedtime, Lopressor 25 mg twice daily. 4. Diabetes mellitus type 2, uncontrolled with hyperglycemia secondary to stero ids. Continue Actos 30 mg daily, NovoLog scale before meals and at bedtime, continue Levemir 20 units twice daily, scheduled NovoLog 7 units every 6 hours. No change in medications. 5. Hypertension. Continue Lopressor with parameters for bradycardia, Norvasc 10 mg daily. Continue Cleviprex. 6. Hyperlipidemia. Continue atorvastatin and fenofibrate 7. Hypothyroidism. Continue levothyroxine 75 g daily. 8. Bradycardia. Lopressor 25 mg twice daily . 9. GI prophylaxis. Protonix. 9. DVT prophylaxis. Lovenox. Prognosis is guarded. Impression and plan of care have been directed as dictated by the signing physician. Mihaela Roberts nurse practitioner acting as scribe for signing physician. Objective - Vital Signs Vital signs: Vital Signs Temp 99.2 F 07/11/20 04:00 Pulse 49 L 07/11/20 08:00 Resp 22 07/11/20 08:00 BP 108/64 07/11/20 07:00 Pulse Ox 87 L 07/11/20 08:00 Intake & Output 07/10/20 07/11/20 07/11/20 18:59 06:59 18:59 Intake Total 1141.380 672.067 209.632 Output Total 3820 1135 60 Balance -2678.620 -462.933 149.632 Weight 136 kg Intake: IV 631 276 23 Pressure bag 36 36 3 Sodium Chloride 0.9% 1, 295 240 20 000 ml @ 20 mls/hr IV . Q24H NAE[facility] Rx#:[id number] Intake, IV Titration 510.380 396.067 186.632 Amount Clevidipine Butyrate 25 8.533 mg In Empty Bag 1 bag @ 1 MG/HR 2 mls/hr IV .Q24H NAE[facility] Rx#:[id number] fentaNYL (PF). 1,000 mcg 100 196.067 54.264 In Sodium Chloride 0.9% 80 ml @ Per Protocol IV . Q0M [facility] Rx#:[id number] propofoL 1,000 mg In 401.847 200 132.368 Empty Bag 1 bag @ Titrate IV .Q0M NAEEM Rx#: [id number] Output: Urine 2420 1125 60 Stool 1400 Estimated Blood Loss 10 Other: Voiding Method Indwelling Catheter Indwelling Catheter # Voids 1 1 ABP, PAP, CO, CI - Last Documented Arterial Blood Pressure 105/54 - Labs CBC & Chem 7: 07/11/20 03:50 07/11/20 03:50 Labs: Abnormal Lab Results - Last 24 Hours (Table) 07/10/20 07/10/20 07/10/20 Range/Units 03:52 17:03 23:11 Plt Count (150-450) k/uL Lymphocytes # (Manual) (1.0-4.8) k/uL Metamyelocytes # (Man) (0) k/uL D-Dimer (<0.60) mg/L FEU ABG pO2 (83-108) mmHg ABG HCO3 (21-25) mmol/L ABG Total CO2 (19-24) mmol/L ABG O2 Saturation (94-97) % BUN (9-20) mg/dL Glucose (74-99) mg/dL POC Glucose (mg/dL) 124 H 138 H (75-99) mg/dL Calcium (8.4-10.2) mg/dL Ferritin 593.6 H (22.0-322.0) ng/mL Lactate Dehydrogenase (313-618) U/L C-Reactive Protein (<10.0) mg/L Total Protein (6.3-8.2) g/dL Albumin (3.5-5.0) g/dL 07/11/20 07/11/20 07/11/20 Range/Units 03:50 03:50 03:50 Plt Count 149 L (150-450) k/uL Lymphocytes # (Manual) 0.14 L (1.0-4.8) k/uL Metamyelocytes # (Man) 0.14 H (0) k/uL D-Dimer 1.77 H (<0.60) mg/L FEU ABG pO2 (83-108) mmHg ABG HCO3 (21-25) mmol/L ABG Total CO2 (19-24) mmol/L ABG O2 Saturation (94-97) % BUN 47 H (9-20) mg/dL Glucose 135 H (74-99) mg/dL POC Glucose (mg/dL) (75-99) mg/dL Calcium 7.9 L (8.4-10.2) mg/dL Ferritin (22.0-322.0) ng/mL Lactate Dehydrogenase 1073 H (313-618) U/L C-Reactive Protein 15.1 H (<10.0) mg/L Total Protein 4.8 L (6.3-8.2) g/dL Albumin 2.6 L (3.5-5.0) g/dL 07/11/20 07/11/20 Range/Units 03:58 11:11 Plt Count (150-450) k/uL Lymphocytes # (Manual) (1.0-4.8) k/uL Metamyelocytes # (Man) (0) k/uL D-Dimer (<0.60) mg/L FEU ABG pO2 62 L (83-108) mmHg ABG HCO3 29 H (21-25) mmol/L ABG Total CO2 30 H (19-24) mmol/L ABG O2 Saturation 91.4 L (94-97) % BUN (9-20) mg/dL Glucose (74-99) mg/dL POC Glucose (mg/dL) 132 H (75-99) mg/dL Calcium (8.4-10.2) mg/dL Ferritin (22.0-322.0) ng/mL Lactate Dehydrogenase (313-618) U/L C-Reactive Protein (<10.0) mg/L Total Protein (6.3-8.2) g/dL Albumin (3.5-5.0) g/dL Microbiology - Last 24 Hours (Table) 07/10/20 11:51 Gram Stain - Preliminary Sputum Sputum Culture - Preliminary
[2020-07-11 12:56] LABS: Ferritin 750.4 ng/mL (22.0-322.0)
[2020-07-11 15:50] LABS: Basophils # (A) 0.1 k/uL (0-0.2); Basophils % (A) 1 %; Eosinophils # (A) 0.1 k/uL (0-0.7); Eosinophils % (A) 1 %; HCT 42.5 % (39.0-53.0); HGB 15.2 gm/dL (13.0-17.5); Lymphocytes # (A) 0.2 k/uL (1.0-4.8); Lymphocytes % (A) 2 %; MCH 31.2 pg (25.0-35.0); MCHC 35.9 g/dL (31.0-37.0); MCV 86.9 fL (80.0-100.0); Mean Platelet Volume 9.3; Monocytes # (A) 0.3 k/uL (0-1.0); Monocytes % (A) 4 %; Neutrophils # (A) 7.9 k/uL (1.3-7.7); Neutrophils % (A) 92 %; Platelet Count 129 k/uL (150-450); RBC 4.89 m/uL (4.30-5.90); RDW 14.8 % (11.5-15.5); WBC 8.6 k/uL (3.8-10.6)
[2020-07-11] MEDS ORDERED: methylPREDNISolone SOD SUCCI 40 MG/ML 1 ML VIAL IV SCH (16:00)
[2020-07-11 16:12] LABS: Magnesium 2.5 mg/dL (1.6-2.3)
[2020-07-11 16:14] LABS: Potassium 3.6 mmol/L (3.5-5.1)
[2020-07-11] MEDS ORDERED: Potassium Replacement Protocol 1 EACH MISC MISCELLANE PRN (16:26)
[2020-07-11 17:04] LABS: Poikilocytosis (M) Present
[2020-07-11 17:40] LABS: Glucose,Whole Blood 95 mg/dL (75-99)
[2020-07-11] MEDS: SODIUM CHLORIDE 0.9% 1,000 ML IV SCH ×2 (18:12→23:56)
[2020-07-11] MEDS: allopurinoL 300 MG TAB PO SCH (20:15)
[2020-07-11] MEDS: ATORVASTATIN 80 MG TAB PO SCH (20:16)
[2020-07-11] MEDS: ASPIRIN 81 MG PO SCH (20:16)
[2020-07-11 23:46] LABS: Glucose,Whole Blood 83 mg/dL (75-99)
[2020-07-12] MEDS: INSULIN ASPART (NovoLOG) 100 UNIT/ML VIAL SQ SCH ×9 (00:17→23:01)
[2020-07-12] MEDS: fentaNYL (PF). 1,000 MCG in SODIUM CHLORIDE 0.9% 80 ML IV SCH ×2 (01:20→05:47)
[2020-07-12 04:11] LABS: ABG Base Excess 6.3 mmol/L; ABG HCO3 31 mmol/L (21-25); ABG Oxygen Saturation 86.5 % (94-97); ABG PCO2 47 mmHg (35-45); ABG PH 7.42 (7.35-7.45); ABG TCO2 32 mmol/L (19-24); Allen Test Performed? Yes
[2020-07-12 04:16] LABS: ABG PO2 54 mmHg (83-108)
[2020-07-12 04:27] LABS: Albumin 2.3 g/dL (3.5-5.0); C Reactive Protein 62.2 mg/L (<10.0); Calcium 7.7 mg/dL (8.4-10.2); Potassium 3.3 mmol/L (3.5-5.1); Total Bilirubin 0.6 mg/dL (0.2-1.3); Total Protein 4.3 g/dL (6.3-8.2)
[2020-07-12 05:08] LABS: HGB 13.8 gm/dL (13.0-17.5); MCH 31.7 pg (25.0-35.0); MCHC 36.4 g/dL (31.0-37.0); MCV 87.2 fL (80.0-100.0); Mean Platelet Volume 10.4; Platelet Count 104 k/uL (150-450); RBC 4.36 m/uL (4.30-5.90); RDW 14.9 % (11.5-15.5); WBC 5.8 k/uL (3.8-10.6)
[2020-07-12] MEDS: LEVOTHYROXINE 75 MCG TAB PO SCH (05:42)
[2020-07-12] MEDS: POTASSIUM BICARBONATE/CIT AC 20 MEQ TABLET.EFF NG-TUBE SCH ×2 (05:42→06:42)
[2020-07-12] MEDS: INSULIN DETEMIR (LEVEMIR) 100 UNIT/ML SYR SQ SCH ×2 (06:47→20:39)
--- NOTE | 2020-07-12 07:39 | P.PN ---
Subjective Progress Note Date: 07/12/20 On 07/09/2020, I'm seeing this 80-year-old male patient in the intensive care unit and the patient is currently intubated on a mechanical ventilated because of a COVID 19 related pneumonia. The patient originally presented with hypoxic respiratory failure and his oxidation progressively got worse and the patient had to be intubated and placed on a mechanical ventilator. He is known to have chronic bronchial asthma, CAD, diabetes mellitus, hypertension, hyperlipidemia, osteoarthritis and hepatitis C. The patient is also has undergone previous coronary artery bypass surgery. The patient got intubated on 07/04/2020 and the patient has been intubated since. The patient is currently on assist control mode with a tidal volume of 450 and FiO2 of 50% with a PEEP of 16 and the rate of 28. The blood gases from today showing a pH of 7.41 with a pCO2 of 44 and pO2 of 96 and this is on FiO2 of 50%. The chest x-ray from today was noted. Chest x-ray showing diffuse breath and pulmonary infiltrates and orotracheal tube is in a good location. Blood gases was noted. The patient is currently sedated. The patient is currently on propofol which is running at 70 mg/kg per minute and fentanyl at 0.6 mcg/kg/h. The patient is receiving enteral feeding for nutritional support and the patient on vital high protein at 10 mL an hour. The patient is also Cleviprex drip for blood pressure control is currently running at 2 mg an hour. The patient is currently receiving IV Solu Medrol 60 mg every 6 hours. The patient is on Lovenox 40 mg subcu every 24 hours. The patient has received Levemir insulin 20 units twice a day along with a NovoLog 7 units every 6 hours and a scaling for both sugar control. He is also on Actos 30 mg orally on a daily basis. He has history of hypothyroidism on levo thyroxine at 75 g by mouth daily. Inflammatory markers are elevated at 1224 LDH and CRP of 6.6. Renal function is stable. Rest of the electrolytes are stable. D-dimer is at 1.92. The peak airway pressures 37 anesthetic at a pressure of 31. Or 2020, patient is being seen for a follow-up visit Covid 19 Related Pneumonia with Secondary Respiratory Failure. The Plan Is to Proceed with a PEG and Tracheostomy Tube Insertion Today. This Morning, the Patient Is Sedated and the Patient Is Currently on Propofol Running at 70 Mics for Respiratory PER Minute and the Patient Is Also on Fentanyl at 0.6 Mitral Respiratory Hour. The Patient Remains off Paralytics. This Morning, He Is an Assist-Control at the Rate of 28 with a Tidal Volume of 450 and FiO2 of 50% with a PEEP of 14. Blood Gases from Today Shows a pH of 7.43 with a PCO2 of 44 and PO2 of 53. The Chest X-Ray from Today Is Showing lower lobe active pulmonary infiltrates. Post thoracotomy. ET tube is in a good location. NG tube is in a good location. The peak airway pressure 42 anesthetic pressures around 17. The patient has excessive respiratory secretions. The plan is to proceed with a tracheostomy tube insertion of PEG tube insertion today. The patient remains on Cleviprex throughout the night and the patient was taken off the Cleviprex earlier this morning. The patient remains on IV Solu-Medrol 60 mg every 6 hours. The patient is also on Lovenox subcutaneous 40 mg every 24 hours. The blood work from today shows an LDH level of 925 with a CRP level of 7.4 and metastatic 2.46. The patient is otherwise hemodynamically stable. He has developed some edema in his extremities and the patient is currently on Lasix 40 mg IV every 24 hours and this was started yesterday. He is receiving enteral feeding for nutritional support and the patient is currently on vital high protein which is currently off pending surgical procedure. 07/11/2020, the patient is post tracheostomy tube insertion and a PEG tube insertion as the patient is going to need prolonged respiratory care. At this point in time, he is an assist-control mode with a tidal volume of 400 and a PEEP of 12 and FiO2 of 50% and a rate of 20. The chest x-ray from today shows that the tracheostomy tube is in a good location. Some limited infiltration of the lung bases. There is adequate aeration of the upper part of the lungs bilaterally. The blood gases from today shows a pH of 7.43 with a pCO2 of 44 and pO2 of 62. The patient was encountering elevated airway pressures yesterday the peak pressure was elevated and I thought this was associated related to secretions. The peak airway pressure today is 26 post tracheostomy tube i nsertion. The patient is on sedation. The patient is on propofol at 70 mcg/kg per minute and the patient is also on fentanyl and 0.2 mcg/kg/h. The patient is not receiving any paralytics for now. No feeding for now post extubation insertion. No other issues for now. He remains off Cleviprex. He is hemodynamically stable. Inflammatory markers were essentially dropping on earlier evaluation and I've also started the patient on Lasix. On today's evaluation, the LDH is 1073, slightly higher and his CRP is at 15, slightly higher, his d-dimer is at 1.77, slightly lower. As for the fluid balance, the patient is -3 L over the past 24 hours and the patient was given diuretics and the patient is receiving Lasix 40 mg IV every 24 hours. He is hemodynamically stable. The plan for today is to give the patient lower sedation and try to evaluate his mental status. The plan is to gradually wean off his propofol. 07/12/2020 the patient is tracheostomy tube insertion of PEG tube insertion. Note that immediately post tracheostomy tube insertion, the airway pressures dropped considerably. Meanwhile, the patient remains on a mechanical ventilator on today's evaluation the patient is an assist-control mode with a tidal volume of 400 and a fever of 12 with an FiO2 of 50% and a rate of 20. This is an assist-control mode, volume cycle. He remains sedated. He is receiving propofol at 70 mcg/kg per minute. Patient is also on fentanyl at 3.5 mcg/kg/h. He is on no paralytics. The blood gases showing a pH of 7.42 with a pCO2 of 47 and pO2 of 53. His current pulse ox on a monitor is in the order of 84-87%. The chest x-ray is showing bilateral pulmonary infiltrates consistent with ARDS. He has a tracheostomy tube and the position is adequate. He has also previous thoracotomy scar on the chest x-ray. He has an LDH of 1077 with a CRP of 62. The d-dimer is currently at 1.22. He remains on a prednisone 40 mg by mouth daily and this which was done yesterday as the patient was taken off IV Solu- Medrol. He is on Levemir insulin 20 units today twice a day and the patient is also on NovoLog 7 units every 6 hours and this line scattered coverage. The patient is also receiving Lasix 40 mg every 24 hours. The fluid balance has been negative and his continues to be negative of 1.1 L over the past 24 hours. He is off Cleviprex for now and his blood pressure is stable. No fever. The sputum is positive for gram-negative bacillus and the patient was having excessive amount of rest or secretions. Suggest covering the patient with antibiotics I'm going to start him on cefepime 2 g every 12 hours pending further cultures from the sputum. On today's evaluation, the patient seemed to be quite asynchronous the mechanical ventilator while being on a volume cycled. ventilator changes were done. Objective - Vital Signs Vital signs: Vital Signs Temp 98.5 F 07/12/20 04:00 Pulse 68 07/12/20 07:00 Resp 27 H 07/12/20 07:00 BP 106/58 07/12/20 07:00 Pulse Ox 90 L 07/12/20 07:00 Intake & Output 07/11/20 07/12/20 07/12/20 18:59 06:59 18:59 Intake Total 778.000 894.954 39 Output Total 2245 610 30 Balance -1467.000 284.954 9 Weight 136 kg 135 kg Intake: IV 276 276 23 Pressure bag 36 36 3 Sodium Chloride 0.9% 1, 240 240 20 000 ml @ 20 mls/hr IV . Q24H [facility] Rx#:[id number] Intake, IV Titration 300.000 336.954 Amount fentaNYL (PF). 1,000 mcg 100.000 236.138 In Sodium Chloride 0.9% 80 ml @ Per Protocol IV . Q0M [facility] Rx#:[id number] propofoL 1,000 mg In 200.000 100.816 Empty Bag 1 bag @ Titrate IV .Q0M [facility] Rx#: [id number] Tube Feeding 142 192 16 Other 60 90 Output: Urine 2245 610 30 Other: Voiding Method Indwelling Catheter Indwelling Catheter ABP, PAP, CO, CI - Last Documented Arterial Blood Pressure 108/56 - Exam Sedated , currently intubated and mechanically ventilated. There is tracheostomy tube in place extra long Bivona #8. No bleeding from the stoma Head exam was generally normal. There was no scleral icterus or corneal arcus. Mucous membranes were moist. Neck was supple and without jugular venous distension, thyromegaly, or carotid bruits. Carotids were easily palpable bilaterally. There was no adenopathy. Orogastric and orotracheal tube are both in place.tracheostomy tube in place Cardiac exam revealed the PMI to be normally situated and sized. The rhythm was regular and no extrasystoles were noted during several minutes of auscultation. The first and second heart sounds were normal and physiologic splitting of the second heart sound was noted. There were no murmurs, rubs, clicks, or gallops. Lungs reveal bilateral crackles and diffuse scattered bilateral rhonchi. There are no wheezes. Breath sounds equal bilaterally. Abdominal exam revealed normal bowel sounds. The abdomen was soft, non-tender, and without masses, organomegaly, or appreciable enlargement of the abdominal aorta. PEG tube site is dry clean and intact Examination of the extremities revealed easily palpable radial, femoral and pedal pulses. There was no cyanosis, clubbing or edema. Examination of the skin revealed no evidence of significant rashes, suspicious appearing nevi or other concerning lesions. Neurologic examination could not be assessed as the patient's is sedated. - Labs CBC & Chem 7: 07/12/20 03:45 07/12/20 03:45 Labs: Abnormal Lab Results - Last 24 Hours (Table) 07/11/20 07/11/20 07/11/20 Range/Units 03:50 03:50 11:11 Hct (39.0-53.0) % Plt Count (150-450) k/uL Neutrophils # (1.3-7.7) k/uL Lymphocytes # (1.0-4.8) k/uL Lymphocytes # (Manual) 0.14 L (1.0-4.8) k/uL Metamyelocytes # (Man) 0.14 H (0) k/uL D-Dimer (<0.60) mg/L FEU ABG pCO2 (35-45) mmHg ABG pO2 (83-108) mmHg ABG HCO3 (21-25) mmol/L ABG Total CO2 (19-24) mmol/L ABG O2 Saturation (94-97) % Potassium (3.5-5.1) mmol/L BUN (9-20) mg/dL Glucose (74-99) mg/dL POC Glucose (mg/dL) 132 H (75-99) mg/dL Calcium (8.4-10.2) mg/dL Magnesium (1.6-2.3) mg/dL Ferritin 750.4 H (22.0-322.0) ng/mL Lactate Dehydrogenase (313-618) U/L C-Reactive Protein (<10.0) mg/L Total Protein (6.3-8.2) g/dL Albumin (3.5-5.0) g/dL 07/11/20 07/11/20 07/12/20 Range/Units 15:40 15:40 03:45 Hct 38.0 L (39.0-53.0) % Plt Count 129 L 104 L (150-450) k/uL Neutrophils # 7.9 H (1.3-7.7) k/uL Lymphocytes # 0.2 L (1.0-4.8) k/uL Lymphocytes # (Manual) (1.0-4.8) k/uL Metamyelocytes # (Man) (0) k/uL D-Dimer (<0.60) mg/L FEU ABG pCO2 (35-45) mmHg ABG pO2 (83-108) mmHg ABG HCO3 (21-25) mmol/L ABG Total CO2 (19-24) mmol/L ABG O2 Saturation (94-97) % Potassium (3.5-5.1) mmol/L BUN 51 H (9-20) mg/dL Glucose 105 H (74-99) mg/dL POC Glucose (mg/dL) (75-99) mg/dL Calcium 8.0 L (8.4-10.2) mg/dL Magnesium 2.5 H (1.6-2.3) mg/dL Ferritin (22.0-322.0) ng/mL Lactate Dehydrogenase (313-618) U/L C-Reactive Protein (<10.0) mg/L Total Protein (6.3-8.2) g/dL Albumin (3.5-5.0) g/dL 07/12/20 07/12/20 07/12/20 Range/Units 03:45 03:45 04:03 Hct (39.0-53.0) % Plt Count (150-450) k/uL Neutrophils # (1.3-7.7) k/uL Lymphocytes # (1.0-4.8) k/uL Lymphocytes # (Manual) (1.0-4.8) k/uL Metamyelocytes # (Man) (0) k/uL D-Dimer 1.22 H (<0.60) mg/L FEU ABG pCO2 47 H (35-45) mmHg ABG pO2 54 L* (83-108) mmHg ABG HCO3 31 H (21-25) mmol/L ABG Total CO2 32 H (19-24) mmol/L ABG O2 Saturation 86.5 L (94-97) % Potassium 3.3 L (3.5-5.1) mmol/L BUN 56 H (9-20) mg/dL Glucose (74-99) mg/dL POC Glucose (mg/dL) (75-99) mg/dL Calcium 7.7 L (8.4-10.2) mg/dL Magnesium (1.6-2.3) mg/dL Ferritin (22.0-322.0) ng/mL Lactate Dehydrogenase 1077 H (313-618) U/L C-Reactive Protein 62.2 H (<10.0) mg/L Total Protein 4.3 L (6.3-8.2) g/dL Albumin 2.3 L (3.5-5.0) g/dL Microbiology - Last 24 Hours (Table) 07/10/20 11:51 Gram Stain - Preliminary Sputum Sputum Culture - Preliminary Gram Neg Bacilli Assessment and Plan Plan: 1 ARDS with secondary acute hypoxemic respiratory failure secondary to COVID 19 pneumonia, with significantly worsening oxygenation, status post intubation on 06/29/2020. The patient has received both convalescent plasma and Tocilizumab, currently on his own. Meanwhile, the patient is post tracheostomy tube insertion and tracheostomy was done on 07/10/2020. The patient is asynchronous with a mechanical ventilator volume cycle. On his morning evaluation the patient was quite hypoxic with low oxygen saturation. Necessity ventilator changes were done and the patient was switched a pressure control mode of ventilation. We are monitoring his respiratory status. He is more synchronous. We'll also obtain a follow-up blood gas. Sputum is positive for gram-negative bacillus and the patient will be started on appropriate antibiotic coverage. 2 History of chronic bronchial asthma. 3 Lifelong nonsmoker. 4 History of CAD, status post bypass grafting. 5 History of diabetes mellitus. 6 Hyperlipidemia by history. 7 Hypertension. 8 Hepatitis C. 9 History of pneumonia. 10 History of hypothyroidism. 11 History of osteoarthritis. Plan Wean propofol and fentanyl The patient is currently off paralytics Continue ventilator support and I switched this patient to a pressure control mode of ventilation with a pressure control of 18, PEEP of 14, FiO2 of 80% and a rate of 20. The follow-up gas Given Lasix 40 mg IV every 24 hours off the Cleviprex, on Norvasc 10 mg by mouth daily and the patient has a stable blood pressure for now. prednisone 40 daily per PEG Awaiting sputum Gram stain and culture and cover the patient with IV cefepime 2 g every 12 hours Continue Lovenox 40 mg subcu for DVT prophylaxis Continue enteral feeding for nutritional support, post PEG tube insertion Monitor inflammatory markers are stable Chest x-ray stable for today. Continue the rest of the supportive care Critically care evaluation more than 30 minutes Time with Patient: Greater than 30
--- NOTE | 2020-07-12 08:16 | XR ---
EXAMINATION TYPE: XR chest 1V portable DATE OF EXAM: 07/12/2020 COMPARISON: Chest x-ray 07/11/2020 HISTORY: Abnormal chest x-ray TECHNIQUE: Single frontal view of the chest is obtained. FINDINGS: Findings are similar to prior exam. Central venous catheter tracheostomy tube are overlyin g appropriate positions. There is no pneumothorax or pleural effusion. Cardiac mediastinal silhouette and postop changes are again noted, there are overlying artifacts. Bilateral airspace disease persis ts, there is some improvement in aeration, lung volumes. IMPRESSION: There is improvement in lung volume, aeration as compared to prior exam
[2020-07-12] MEDS: ALBUTEROL HFA INHALER INHALATION SCH ×4 (08:19→21:26)
[2020-07-12 08:29] LABS: Band Neutrophils % 10 %; Eosinophils # (M) 0.23 k/uL (0-0.7); Lymphocytes # (M) 0.29 k/uL (1.0-4.8); Metamyelocytes # (M) 0.12 k/uL (0); Metamyelocytes % 2 %; Monocytes # (M) 0.12 k/uL (0-1.0); Neutrophils % (M) 79 %; Nucleated Red Blood Cells 0 /100 WBC (0-0); Total Cells Counted 200
[2020-07-12 08:32] LABS: Toxic Vacuolation Present
[2020-07-12 08:40] LABS: ABG Base Excess 4.4 mmol/L; ABG HCO3 28 mmol/L (21-25); ABG Oxygen Saturation 91.5 % (94-97); ABG PCO2 41 mmHg (35-45); ABG PH 7.45 (7.35-7.45); ABG PO2 61 mmHg (83-108); ABG TCO2 30 mmol/L (19-24)
[2020-07-12 08:42] LABS: Allen Test Performed? NO
[2020-07-12] MEDS: ZINC SULFATE 220 MG CAP PO SCH (09:09)
[2020-07-12] MEDS: CHLORHEXIDINE GLUCONATE 15 ML CUP MUCOUS MEM SCH ×2 (09:09→20:39)
[2020-07-12] MEDS: PIOGLITAZONE 30 MG TAB PO SCH (09:09)
[2020-07-12] MEDS: ENOXAPARIN 40 MG/0.4 ML SYRINGE SQ SCH (09:09)
[2020-07-12] MEDS: CHOLECALCIFEROL 25 MCG (1000 IU) TABLET PO SCH (09:09)
[2020-07-12] MEDS: FENOFIBRATE 160 MG TAB PO SCH (09:09)
[2020-07-12] MEDS: predniSONE 20 MG TAB PO SCH (09:10)
[2020-07-12] MEDS: MULTIVITAMINS, THERA 1 EACH TAB PO SCH (09:10)
[2020-07-12] MEDS: guaiFENesin 600 MG TABLET.ER PO SCH ×2 (09:10→20:39)
[2020-07-12] MEDS: PANTOPRAZOLE 40 MG/10 ML VIAL IVP SCH (09:10)
[2020-07-12] MEDS: FUROSEMIDE 10 MG/ML 4 ML VIAL IV SCH (09:10)
[2020-07-12] MEDS: ASCORBIC ACID 500 MG TAB PO SCH (09:10)
[2020-07-12] MEDS: CEFEPIME 2 GM in SODIUM CHLORIDE 0.9% 100 ML IVPB SCH ×2 (09:11→20:39)
[2020-07-12] MEDS: polyethylene glycoL 3350 17 GM POWD.PACK PO SCH (09:11)
[2020-07-12] MEDS: METOPROLOL TARTRATE 25 MG TAB PO SCH ×2 (09:11→20:40)
[2020-07-12] MEDS: SENNOSIDES-DOCUSATE SODIUM 1 EACH TAB PO SCH (09:11)
[2020-07-12] MEDS: amLODIPine 10 MG TAB PO SCH (09:12)
[2020-07-12 10:01] LABS: Ferritin 1089.7 ng/mL (22.0-322.0)
--- NOTE | 2020-07-12 10:40 | P.PN ---
Subjective Progress Note Date: 07/12/20 CHIEF COMPLAINT: Respiratory failure HISTORY OF PRESENT ILLNESS: Patient remains in the ICU and intubated. He is status post tracheostomy and PEG tube placement. Patient's tube feedings were started yesterday. He is tolerating tube feedings. No residual reported. He is having some bleeding at the tracheostomy site. Critical care service did add cefepime for antibiotic coverage. Sputum had grown gram-negative bacilli with excessive amount of secretions. Afebrile WBC 5.8 hemoglobin is 13.8 potassium 3.3 PHYSICAL EXAM: VITAL SIGNS: Reviewed. GENERAL: Well-developed in no acute distress. HEENT: No sclera icterus. Extraocular movements grossly intact. Moist buccal mucosa. Head is atraumatic, normocephalic. Trach site has some bleeding present ABDOMEN: Soft. Nondistended. Nontender. PEG tube site clean dry and intact NEUROLOGIC: Intubated and sedated ASSESSMENT: 1. Acute hypoxic respiratory failure status post tracheostomy placement 2. Covid 19 pneumonia 3. Severe protein calorie malnutrition status post PEG tube placement PLAN: -Continue ICU management -Continue supportive care -Continue tube feedings Physician Handbag Finisher note has been reviewed by physician. Signing provider agrees with the documented findings, assessment, and plan of care. Objective - Vital Signs Vital signs: Vital Signs Temp 98.5 F 07/12/20 04:00 Pulse 93 07/12/20 10:00 Resp 18 07/12/20 10:00 BP 159/77 07/12/20 10:00 Pulse Ox 86 L 07/12/20 10:00 Intake & Output 07/11/20 07/12/20 07/12/20 18:59 06:59 18:59 Intake Total 778.000 894.954 449.862 Output Total 2245 610 160 Balance -1467.000 284.954 289.862 Weight 136 kg 135 kg Intake: IV 276 276 192 Cefepime 2 gm In Sodium 100 Chloride 0.9% 100 ml @ 25 mls/hr IVPB Q12HR [facility] Rx #:[id number] Pressure bag 36 36 12 Sodium Chloride 0.9% 1, 240 240 80 000 ml @ 20 mls/hr IV . Q24H [facility] Rx#:[id number] Intake, IV Titration 300.000 336.954 163.862 Amount fentaNYL (PF). 1,000 mcg 100.000 236.138 63.862 In Sodium Chloride 0.9% 80 ml @ Per Protocol IV . Q0M [facility] Rx#:[id number] propofoL 1,000 mg In 200.000 100.816 100 Empty Bag 1 bag @ Titrate IV .Q0M [facility] Rx#: [id number] Tube Feeding 142 192 64 Other 60 90 30 Output: Urine 2245 610 160 Other: Voiding Method Indwelling Catheter Indwelling Catheter Indwelling Catheter ABP, PAP, CO, CI - Last Documented Arterial Blood Pressure 108/56 - Labs CBC & Chem 7: 07/12/20 03:45 07/12/20 03:45 Labs: Abnormal Lab Results - Last 24 Hours (Table) 07/11/20 07/11/20 07/11/20 Range/Units 03:50 11:11 15:40 Hct (39.0-53.0) % Plt Count 129 L (150-450) k/uL Neutrophils # 7.9 H (1.3-7.7) k/uL Lymphocytes # 0.2 L (1.0-4.8) k/uL Lymphocytes # (Manual) (1.0-4.8) k/uL Metamyelocytes # (Man) (0) k/uL D-Dimer (<0.60) mg/L FEU ABG pCO2 (35-45) mmHg ABG pO2 (83-108) mmHg ABG HCO3 (21-25) mmol/L ABG Total CO2 (19-24) mmol/L ABG O2 Saturation (94-97) % Potassium (3.5-5.1) mmol/L BUN (9-20) mg/dL Glucose (74-99) mg/dL POC Glucose (mg/dL) 132 H (75-99) mg/dL Calcium (8.4-10.2) mg/dL Magnesium (1.6-2.3) mg/dL Ferritin 750.4 H (22.0-322.0) ng/mL Lactate Dehydrogenase (313-618) U/L C-Reactive Protein (<10.0) mg/L Total Protein (6.3-8.2) g/dL Albumin (3.5-5.0) g/dL 07/11/20 07/12/20 07/12/20 Range/Units 15:40 03:45 03:45 Hct 38.0 L (39.0-53.0) % Plt Count 104 L (150-450) k/uL Neutrophils # (1.3-7.7) k/uL Lymphocytes # (1.0-4.8) k/uL Lymphocytes # (Manual) 0.29 L (1.0-4.8) k/uL Metamyelocytes # (Man) 0.12 H (0) k/uL D-Dimer 1.22 H (<0.60) mg/L FEU ABG pCO2 (35-45) mmHg ABG pO2 (83-108) mmHg ABG HCO3 (21-25) mmol/L ABG Total CO2 (19-24) mmol/L ABG O2 Saturation (94-97) % Potassium (3.5-5.1) mmol/L BUN 51 H (9-20) mg/dL Glucose 105 H (74-99) mg/dL POC Glucose (mg/dL) (75-99) mg/dL Calcium 8.0 L (8.4-10.2) mg/dL Magnesium 2.5 H (1.6-2.3) mg/dL Ferritin (22.0-322.0) ng/mL Lactate Dehydrogenase (313-618) U/L C-Reactive Protein (<10.0) mg/L Total Protein (6.3-8.2) g/dL Albumin (3.5-5.0) g/dL 07/12/20 07/12/20 07/12/20 Range/Units 03:45 04:03 08:37 Hct (39.0-53.0) % Plt Count (150-450) k/uL Neutrophils # (1.3-7.7) k/uL Lymphocytes # (1.0-4.8) k/uL Lymphocytes # (Manual) (1.0-4.8) k/uL Metamyelocytes # (Man) (0) k/uL D-Dimer (<0.60) mg/L FEU ABG pCO2 47 H (35-45) mmHg ABG pO2 54 L* 61 L (83-108) mmHg ABG HCO3 31 H 28 H (21-25) mmol/L ABG Total CO2 32 H 30 H (19-24) mmol/L ABG O2 Saturation 86.5 L 91.5 L (94-97) % Potassium 3.3 L (3.5-5.1) mmol/L BUN 56 H (9-20) mg/dL Glucose (74-99) mg/dL POC Glucose (mg/dL) (75-99) mg/dL Calcium 7.7 L (8.4-10.2) mg/dL Magnesium (1.6-2.3) mg/dL Ferritin 1089.7 H (22.0-322.0) ng/mL Lactate Dehydrogenase 1077 H (313-618) U/L C-Reactive Protein 62.2 H (<10.0) mg/L Total Protein 4.3 L (6.3-8.2) g/dL Albumin 2.3 L (3.5-5.0) g/dL Microbiology - Last 24 Hours (Table) 07/10/20 11:51 Gram Stain - Final Sputum Sputum Culture - Final Klebsiella oxytoca
[2020-07-12 11:38] LABS: Glucose,Whole Blood 72 mg/dL (75-99)
[2020-07-12 11:40] LABS: Glucose,Whole Blood 87 mg/dL (75-99)
[2020-07-12] MEDS: SODIUM CHLORIDE 0.9% 1,000 ML IV SCH ×2 (11:45→12:43)
[2020-07-12 14:09] LABS: ABG Base Excess 2.5 mmol/L; ABG HCO3 26 mmol/L (21-25); ABG Oxygen Saturation 86.9 % (94-97); ABG PCO2 37 mmHg (35-45); ABG PH 7.46 (7.35-7.45); ABG TCO2 27 mmol/L (19-24); Allen Test Performed? Yes
[2020-07-12 14:11] LABS: ABG PO2 52 mmHg (83-108)
--- NOTE | 2020-07-12 14:30 | P.PN ---
Subjective Progress Note Date: 07/12/20 HISTORY OF PRESENT ILLNESS This is a 80-year-old male patient of Dr. 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 Patient states that he has had symptoms for 2 weeks which include body aches, shortness of breath coming foggy thinking. He denies any nausea, vomiting or diarrhea. He states he has had sputum production. He denies any lower extremity edema. Patient does not have home oxygen. Patient presented to [facility] emergency center for evaluation. Chest x-ray reveals bibasilar patchy opacities consistent with multifocal infection. No pleural effusions or pneumothorax. Temperature 100.1, heart rate 75, respiratory rate 24, blood pressure 125/63 and pulse ox 83% on room air. EKG was a sinus rhythm at 66 bpm. CBC was unremarkable except for lymphocytosis of 0.5. INR 1.0. Sodium 135, BUN 28 creatinine 1.68. Blood sugar 202. Lactic acid 1.6. Liver function tests were normal. LDH 730. C- reactive protein and a 5.9. ProBNP 522. 4/2: Patient is seen today on the observation unit as an overflow. Pulse ox is 84% on 15 L hyponasal cannula and nonrebreather. Patient seems to have more shortness of breath today and also complains of wheezing. No significant cough production. No fever or chills. No chest pain. WBC 11.2, hemoglobin 14.8, platelet count 233. Repeat chest x-ray reveals findings consistent with pneumonia. Pro-calcitonin 0.12. Blood sugars running in the 200s. Patient to be moved to the intensive care unit. 06/30: Patient declined significantly in the afternoon yesterday ended up on mechanical ventilation, he been sedated currently his marker are still quite bit high. Patient still required high demand O2 along with high PEEP of 15-20 to keep his pulse ox at the margin of 90 percentile. His blood sugars mildly elevated and still been managed on insulin, white blood cell is up to 13,000 today, his blood gas shows pO2 of 653 only. CO2 of 27 and pH of 7.31 creatinine has slightly improved since yesterday he C-reactive protein is up to 144 and LDH of 748. 4/4: Patient is still on mechanical ventilation is FiO2 is down to 70% still on PEEP of 18 I had long discussion with the and update her on with outpatient patient's condition still guarded this point his prognosis still not good but he has slight improvement compared to yesterday, his kidney function has improved slightly bit compared to yesterday as well. 07/02: Patient remains in the ICU. Patient is intubated and on mechanical ventilation with tidall volume 450,, FiO2 60%, PEEP of 18 which is improved from yesterday. He is pulse oxing 92-95%. He has been afebrile, heart rate in the 40s, respiratory rate 28, blood pressure 148/67. business management associate is sinus bradycardia. Repeat lab work reveals WBC 12.4, hemoglobin 13.1, platelet count 266. Sed rate 33. D-dimer 0.45. Sodium 140, potassium 4.7, chloride 110, CO2 24, BUN 44 and creatinine 0.25. Blood sugars running between 197 and 248. Ferritin 629.9. LDH 704. He is currently nothing by mouth. 07/03: Patient has been afebrile, heart rate 61, blood pressure 177/104, pulse ox 97%. Patient remains intubated and on mechanical ventilation with tidal volume 450, FiO2 60, PEEP of 18. Repeat blood work reveals WBC 15.9, hemoglobin 14.9, platelet count 341. Lymphocytes 0.5. Sodium 140, potassium 4.9, chloride 109, CO2 22, BUN 44 and creatinine 1. LDH 951. Liver function tests normal. Blood sugars running between 221 and 299. Levemir will be increased to 20 units twice daily and scheduled NovoLog will be increased to 7 units every 6 hours along with NovoLog scale continued. Tube feedings are at goal. Repeat chest x-ray reveals diffuse pleural parenchymal changes correlate for interstitial pneumonia is stable. Dr. Beverly has stopped Nimbex and Cleviprex. 07/04: Heart rate has been running in the 40s and Lopressor decreased from 50 mg twice daily to 25 mg twice daily and parameters to hold if heart rate is less than 55. Blood pressure is still been an issue and patient was weaned off Alan viprex. She remains intubated and on mechanical ventilation with tidal volume 520, FiO2 60, PEEP of 18. Blood sugar was still running high until this morning, this morning's blood sugar 194. Adjustments were made to his insulin yesterday and tube feeding dose decreased today. Will hold on making any further changes with insulins. Repeat blood work reveals sed rate of 90, d- dimer 0.73. Sodium 141, potassium 4.6, chloride 112, CO2 25, BUN 43, creatinine 1.10. Ferritin 683.9. LDH 745. Repeat chest x-ray reveals diffuse bilateral airspace disease stable correlate for diffuse pneumonia, ARDS versus pulmonary edema. 07/05: Patient remains intubated and on mechanical ventilation with tidal volume 450, FiO2 60 and PEEP of 20. Patient has been afebrile, heart rate in the 40s, respiratory rate 28, blood pressure 134/60, pulse ox 98%. Lopressor is not been given at a lower rate due to bradycardia. Repeat blood work reveals WBC 13.6, hemoglobin 13.6, platelet count 292. Blood sugars running between 148 and 179. 07/06: Patient remains in the intensive care unit intubated and on mechanical ventilation with tidal volume 450, FiO2 60, PEEP of 20. He is on propofol and fentanyl. He is also currently on Cleviprex. Repeat chest x-ray reveals diffuse interstitial infiltrates are stable. WBC 14.2, hemoglobin 14.2, platelet count 292. Creatinine 0.97 and BUN 48. Blood sugars running between 165 an 187. Patient may require PEG tube and trach. 07/07: Repeat chest x-ray reveals mild improving nonspecific infiltrate can be compatible with atypical pneumonia. He remains in the intensive care unit intubated and on mechanical ventilation with tidal volume 450, FiO2 decreased to 50% and PEEP of 16. He is still on Cleviprex. He remains on sedation. He is tolerating tube feedings. Repeat blood work reveals WBC 9.1, hemoglobin 12.3, platelet count 244. D-dimer 1.35. BUN 41 creatinine 0.86. Blood sugars running between 146 and 168. C-reactive protein 7.9. CK 52. 07/08: Patient remains in the intensive care unit. He is on propofol and Ventolin. He is on mechanical ventilation with tidal volume 450, FiO2 50%, PEEP down to 16. Tube feedings are 10 MLS per hour at goal. POO 97%, HR improved and patient received lopressor last night and this morning. He as been afebrile. BP 148/72 and on Cleviprex. WBC 14.3. D-dimer 1.92. BUN 48 and creatinine 0.93. Calcium 8.2. Ferritin 548.2. Liver function tests are normal. LDH 1224. CK 65. C-reactive protein 6.6. 07/09: Patient remains intubated and on mechanical ventilation with tidal volume 450, FiO2 50 and PEEP of 16. Amlodipine was increased to [address] Dumont for blood pressure control. Patient remains on Cleviprex. Patient is also on fentanyl and propofol. Patient is also on tube feedings. Patient is on IV Lasix and IV Solu-Medrol. Proceeding has been consulted for PEG and trach placement. Repeat chest x-ray reveals diffuse bilateral predominantly interstitial infiltrates with basilar consolidative infiltrate stable. Patient has been afebrile, heart rate 52, blood pressure 149/74, pulse ox 89%. Repeat blood work reveals WBC 12.3, hemoglobin 13.7. D-dimer 2. Sodium 136, potassium 4.3, chloride 110, CO2 22, BUN 45 and creatinine 0.85. Sugars are running 136- 152. Ferritin 518.4. LDH 949, CK 52. C-reactive protein 7.3. 07/10: She remains intubated and on mechanical ventilation with tidal volume 380, FiO2 50, PEEP of 14 which is down from yesterday. Patient is scheduled for PEG tube and trach insertion today. He has been afebrile, heart rate in the 50s, blood pressure 129/69, pulse ox 93%. Repeat blood work reveals WBC 11.3, hemoglobin 14.6. Electrolytes normal. Creatinine 0.81. Blood sugars are running between 100 2244. LDH 925, CK 52, C-reactive protein 7.4. 07/11: Patient underwent trach and PEG tube placement yesterday with Dr. Rodríguez. He is currently on vent settings with tidal volume 650, FiO2 of 50%, PEEP of 12. Patient has been afebrile, heart rate in the 40s and 50s, blood pressure 105/54, pulse ox 87%. Repeat blood work reveals platelet count 149. Electrolytes normal, BUN 47 creatinine 0.85. Blood sugars running between 124 and 138. LDH 1073, CK 81, C-reactive protein 15.1. D-dimer 1.77. Prognosis remains guarded. 07/12: Patient remains in the intensive care unit on mechanical ventilation with pulse ox of 85% with tidal volume 700, FiO2 80 and PEEP of 14. Repeat blood work reveals WBC 5.8, hemoglobin 13.8, platelet count 104. D-dimer 1.22. Sodium 138, potassium 3.3, chloride 106, CO2 27, BUN 56 and creatinine 1.17. LDH 1077. C-reactive protein 62.2. Repeat chest x-ray reveals improvement in lung volume, aeration. Patient has been tolerating tube feedings which were started yesterday. No residuals. Patient has small amount of bleeding at the tracheostomy site. Patient is on IV antibiotics in form of cefepime. Sputum culture is in progress. REVIEW OF SYSTEMS Unable to obtain due to intubation, mechanical ventilation and sedation. PHYSICAL EXAMINATION Defer to pulmonary medicine due to intubation and active Covid status. Gen: This is a morbidly obese 80-year-old male. He is resting in ICU bed with trachea, mechanical ventilation. HEENT: Head is atraumatic, normocephalic. LUNGS: No intercostal retractions. NEUROLOGICAL: Patient issedated. ASSESSMENT AND PLAN 1. Acute hypoxic respiratory failure secondary to COVID19 Pneumonia. Patient is status post Tocilizumab and convalescent plasma. Continue mechanical venti lation. Solu-Medrol discontinued, continue, Lovenox 40 mg daily, vitamins C, vitamin D, zinc, Symbicort twice daily, continue vent management patient is managed by textbook associate. Consult with Dr. Rodríguez status posttrach and PEG tube insertion. Patient has been started on cefepime. 2. Possible secondary bacterial gram-negative pneumonia ruled out by pulmonary medicine. 3. Acute kidney injury with chronic kidney disease stage III. 3. History of coronary artery disease status post CABG, stable. Continue aspirin 81 mg daily, Lipitor 80 mg at bedtime, Lopressor 25 mg twice daily. 4. Diabetes mellitus type 2, uncontrolled with hyperglycemia secondary to steroids. Continue Actos 30 mg daily, NovoLog scale before meals and at bedtime, continue Levemir 20 units twice daily, scheduled NovoLog 7 units every 6 hours. No change in medications. 5. Hypertension. Continue Lopressor with parameters for bradycardia, Norvasc 10 mg daily. Continue Cleviprex. 6. Hyperlipidemia. Continue atorvastatin and fenofibrate 7. Hypothyroidism. Continue levothyroxine 75 g daily. 8. Bradycardia. Lopressor 25 mg twice daily . 9. Severe protein calorie malnutrition secondary to extended intubation. Patient is status post PEG tube insertion. Continue tube feedings. 10. GI prophylaxis. Protonix. 11. DVT prophylaxis. Lovenox. Prognosis is guarded. Impression and plan of care have been directed as dictated by the signing physician. Mihaela Roberts nurse practitioner acting as scribe for signing physician. Objective - Vital Signs Vital signs: Vital Signs Temp 98.5 F 07/12/20 04:00 Pulse 57 L 07/12/20 08:00 Resp 26 H 07/12/20 08:00 BP 120/65 07/12/20 08:00 Pulse Ox 85 L 07/12/20 08:00 Intake & Output 07/11/20 07/12/20 07/12/20 18:59 06:59 18:59 Intake Total 778.000 894.954 39 Output Total 2245 610 30 Balance -1467.000 284.954 9 Weight 136 kg 135 kg Intake: IV 276 276 23 Pressure bag 36 36 3 Sodium Chloride 0.9% 1, 240 240 20 000 ml @ 20 mls/hr IV . Q24H [facility] Rx#:[id number] Intake, IV Titration 300.000 336.954 Amount fentaNYL (PF). 1,000 mcg 100.000 236.138 In Sodium Chloride 0.9% 80 ml @ Per Protocol IV . Q0M [facility] Rx#:[id number] propofoL 1,000 mg In 200.000 100.816 Empty Bag 1 bag @ Titrate IV .Q0M [facility] Rx#: [id number] Tube Feeding 142 192 16 Other 60 90 Output: Urine 2245 610 30 Other: Voiding Method Indwelling Catheter Indwelling Catheter Indwelling Catheter ABP, PAP, CO, CI - Last Documented Arterial Blood Pressure 108/56 - Labs CBC & Chem 7: 07/12/20 03:45 07/12/20 03:45 Labs: Abnormal Lab Results - Last 24 Hours (Table) 07/11/20 07/11/20 07/11/20 Range/Units 03:50 11:11 15:40 Hct (39.0-53.0) % Plt Count 129 L (150-450) k/uL Neutrophils # 7.9 H (1.3-7.7) k/uL Lymphocytes # 0.2 L (1.0-4.8) k/uL Lymphocytes # (Manual) (1.0-4.8) k/uL Metamyelocytes # (Man) (0) k/uL D-Dimer (<0.60) mg/L FEU ABG pCO2 (35-45) mmHg ABG pO2 (83-108) mmHg ABG HCO3 (21-25) mmol/L ABG Total CO2 (19-24) mmol/L ABG O2 Saturation (94-97) % Potassium (3.5-5.1) mmol/L BUN (9-20) mg/dL Glucose (74-99) mg/dL POC Glucose (mg/dL) 132 H (75-99) mg/dL Calcium (8.4-10.2) mg/dL Magnesium (1.6-2.3) mg/dL Ferritin 750.4 H (22.0-322.0) ng/mL Lactate Dehydrogenase (313-618) U/L C-Reactive Protein (<10.0) mg/L Total Protein (6.3-8.2) g/dL Albumin (3.5-5.0) g/dL 07/11/20 07/12/20 07/12/20 Range/Units 15:40 03:45 03:45 Hct 38.0 L (39.0-53.0) % Plt Count 104 L (150-450) k/uL Neutrophils # (1.3-7.7) k/uL Lymphocytes # (1.0-4.8) k/uL Lymphocytes # (Manual) 0.29 L (1.0-4.8) k/uL Metamyelocytes # (Man) 0.12 H (0) k/uL D-Dimer 1.22 H (<0.60) mg/L FEU ABG pCO2 (35-45) mmHg ABG pO2 (83-108) mmHg ABG HCO3 (21-25) mmol/L ABG Total CO2 (19-24) mmol/L ABG O2 Saturation (94-97) % Potassium (3.5-5.1) mmol/L BUN 51 H (9-20) mg/dL Glucose 105 H (74-99) mg/dL POC Glucose (mg/dL) (75-99) mg/dL Calcium 8.0 L (8.4-10.2) mg/dL Magnesium 2.5 H (1.6-2.3) mg/dL Ferritin (22.0-322.0) ng/mL Lactate Dehydrogenase (313-618) U/L C-Reactive Protein (<10.0) mg/L Total Protein (6.3-8.2) g/dL Albumin (3.5-5.0) g/dL 07/12/20 07/12/20 Range/Units 03:45 04:03 Hct (39.0-53.0) % Plt Count (150-450) k/uL Neutrophils # (1.3-7.7) k/uL Lymphocytes # (1.0-4.8) k/uL Lymphocytes # (Manual) (1.0-4.8) k/uL Metamyelocytes # (Man) (0) k/uL D-Dimer (<0.60) mg/L FEU ABG pCO2 47 H (35-45) mmHg ABG pO2 54 L* (83-108) mmHg ABG HCO3 31 H (21-25) mmol/L ABG Total CO2 32 H (19-24) mmol/L ABG O2 Saturation 86.5 L (94-97) % Potassium 3.3 L (3.5-5.1) mmol/L BUN 56 H (9-20) mg/dL Glucose (74-99) mg/dL POC Glucose (mg/dL) (75-99) mg/dL Calcium 7.7 L (8.4-10.2) mg/dL Magnesium (1.6-2.3) mg/dL Ferritin (22.0-322.0) ng/mL Lactate Dehydrogenase 1077 H (313-618) U/L C-Reactive Protein 62.2 H (<10.0) mg/L Total Protein 4.3 L (6.3-8.2) g/dL Albumin 2.3 L (3.5-5.0) g/dL Microbiology - Last 24 Hours (Table) 07/10/20 11:51 Gram Stain - Preliminary Sputum Sputum Culture - Preliminary Gram Neg Bacilli
[2020-07-12] MEDS: NOREPINEPHRINE 8 MG in SODIUM CHLORIDE 0.9% 250 ML IV SCH (14:50)
[2020-07-12] MEDS ORDERED: VANCOMYCIN IV PER PHARMACY 1 EACH MISC MISCELLANE PRN (15:50)
[2020-07-12] MEDS ORDERED: VANCOMYCIN 2,500 MG in SODIUM CHLORIDE 0.9% 500 ML 500 ML IVPB ONE (17:00)
[2020-07-12 17:23] LABS: Glucose,Whole Blood 107 mg/dL (75-99)
[2020-07-12] MEDS: ATORVASTATIN 80 MG TAB PO SCH (20:39)
[2020-07-12] MEDS: allopurinoL 300 MG TAB PO SCH (20:39)
[2020-07-12] MEDS: ASPIRIN 81 MG PO SCH (20:39)
[2020-07-12 22:45] LABS: Glucose,Whole Blood 121 mg/dL (75-99)
[2020-07-13 01:12] LABS: HCT 33.8 % (39.0-53.0); MCH 31.8 pg (25.0-35.0); MCHC 35.6 g/dL (31.0-37.0); MCV 89.3 fL (80.0-100.0); Mean Platelet Volume 11.3; RBC 3.79 m/uL (4.30-5.90); RDW 15.7 % (11.5-15.5); WBC 8.2 k/uL (3.8-10.6)
[2020-07-13 02:11] LABS: Platelet Count 65 k/uL (150-450)
[2020-07-13 04:53] LABS: Basophils % (A) 0 %; Eosinophils # (A) 0.2 k/uL (0-0.7); Eosinophils % (A) 4 %; Lymphocytes % (A) 0 %; MCV 87.8 fL (80.0-100.0); Mean Platelet Volume 10.8; Monocytes # (A) 0.1 k/uL (0-1.0); Monocytes % (A) 3 %; RBC 3.76 m/uL (4.30-5.90); RDW 15.3 % (11.5-15.5); WBC 5.5 k/uL (3.8-10.6)
[2020-07-13 05:22] LABS: ABG Base Excess -1.4 mmol/L; ABG HCO3 23 mmol/L (21-25); ABG Oxygen Saturation 88.4 % (94-97); ABG PCO2 34 mmHg (35-45); ABG PH 7.44 (7.35-7.45); ABG TCO2 24 mmol/L (19-24); Allen Test Performed? Yes
[2020-07-13 05:26] LABS: ABG PO2 55 mmHg (83-108)
[2020-07-13 06:58] LABS: MCH 29.5 pg (25.0-35.0); MCHC 33.8 g/dL (31.0-37.0)
[2020-07-13] MEDS: INSULIN ASPART (NovoLOG) 100 UNIT/ML VIAL SQ SCH ×3 (07:31→17:46)
--- NOTE | 2020-07-13 07:59 | XR ---
EXAMINATION TYPE: XR chest 1V portable DATE OF EXAM: 07/13/2020 COMPARISON: 07/13/2019 HISTORY: Shortness of breath TECHNIQUE: Single frontal view of the chest is obtained. FINDINGS: Tracheostomy tube and PICC line stable. Postoperative change. Bilateral interstitial and a lveolar infiltrate stable. No pneumothorax. Underlying COPD suggested. Heart size mildly enlarged. IMPRESSION: Bilateral interstitial and alveolar infiltrate stable.
[2020-07-13 08:05] LABS: Potassium 3.3 mmol/L (3.5-5.1)
[2020-07-13 08:08] LABS: C Reactive Protein 220.6 mg/L (<10.0)
[2020-07-13 08:11] LABS: Calcium 7.3 mg/dL (8.4-10.2); Total Protein 3.9 g/dL (6.3-8.2)
[2020-07-13 08:17] LABS: Magnesium 2.4 mg/dL (1.6-2.3)
[2020-07-13] MEDS: ALBUTEROL HFA INHALER INHALATION SCH ×4 (08:23→21:01)
--- NOTE | 2020-07-13 08:27 | P.PN ---
Subjective Progress Note Date: 07/13/20 On 07/09/2020, I'm seeing this 80-year-old male patient in the intensive care unit and the patient is currently intubated on a mechanical ventilated because of a COVID 19 related pneumonia. The patient originally presented with hypoxic respiratory failure and his oxidation progressively got worse and the patient had to be intubated and placed on a mechanical ventilator. He is known to have chronic bronchial asthma, CAD, diabetes mellitus, hypertension, hyperlipidemia, osteoarthritis and hepatitis C. The patient is also has undergone previous coronary artery bypass surgery. The patient got intubated on 07/04/2020 and the patient has been intubated since. The patient is currently on assist control mode with a tidal volume of 450 and FiO2 of 50% with a PEEP of 16 and the rate of 28. The blood gases from today showing a pH of 7.41 with a pCO2 of 44 and pO2 of 96 and this is on FiO2 of 50%. The chest x-ray from today was noted. Chest x-ray showing diffuse breath and pulmonary infiltrates and orotracheal tube is in a good location. Blood gases was noted. The patient is currently sedated. The patient is currently on propofol which is running at 70 mg/kg per minute and fentanyl at 0.6 mcg/kg/h. The patient is receiving enteral feeding for nutritional support and the patient on vital high protein at 10 mL an hour. The patient is also Cleviprex drip for blood pressure control is currently running at 2 mg an hour. The patient is currently receiving IV Solu Medrol 60 mg every 6 hours. The patient is on Lovenox 40 mg subcu every 24 hours. The patient has received Levemir insulin 20 units twice a day along with a NovoLog 7 units every 6 hours and a scaling for both sugar control. He is also on Actos 30 mg orally on a daily basis. He has history of hypothyroidism on levo thyroxine at 75 g by mouth daily. Inflammatory markers are elevated at 1224 LDH and CRP of 6.6. Renal function is stable. Rest of the electrolytes are stable. D-dimer is at 1.92. The peak airway pressures 37 anesthetic at a pressure of 31. Or 2020, patient is being seen for a follow-up visit Covid 19 Related Pneumonia with Secondary Respiratory Failure. The Plan Is to Proceed with a PEG and Tracheostomy Tube Insertion Today. This Morning, the Patient Is Sedated and the Patient Is Currently on Propofol Running at 70 Mics for Respiratory PER Minute and the Patient Is Also on Fentanyl at 0.6 Mitral Respiratory Hour. The Patient Remains off Paralytics. This Morning, He Is an Assist-Control at the Rate of 28 with a Tidal Volume of 450 and FiO2 of 50% with a PEEP of 14. Blood Gases from Today Shows a pH of 7.43 with a PCO2 of 44 and PO2 of 53. The Chest X-Ray from Today Is Showing lower lobe active pulmonary infiltrates. Post thoracotomy. ET tube is in a good location. NG tube is in a good location. The peak airway pressure 42 anesthetic pressures around 17. The patient has excessive respiratory secretions. The plan is to proceed with a tracheostomy tube insertion of PEG tube insertion today. The patient remains on Cleviprex throughout the night and the patient was taken off the Cleviprex earlier this morning. The patient remains on IV Solu-Medrol 60 mg every 6 hours. The patient is also on Lovenox subcutaneous 40 mg every 24 hours. The blood work from today shows an LDH level of 925 with a CRP level of 7.4 and metastatic 2.46. The patient is otherwise hemodynamically stable. He has developed some edema in his extremities and the patient is currently on Lasix 40 mg IV every 24 hours and this was started yesterday. He is receiving enteral feeding for nutritional support and the patient is currently on vital high protein which is currently off pending surgical procedure. 07/11/2020, the patient is post tracheostomy tube insertion and a PEG tube insertion as the patient is going to need prolonged respiratory care. At this point in time, he is an assist-control mode with a tidal volume of 400 and a PEEP of 12 and FiO2 of 50% and a rate of 20. The chest x-ray from today shows that the tracheostomy tube is in a good location. Some limited infiltration of the lung bases. There is adequate aeration of the upper part of the lungs bilaterally. The blood gases from today shows a pH of 7.43 with a pCO2 of 44 and pO2 of 62. The patient was encountering elevated airway pressures yesterday the peak pressure was elevated and I thought this was associated related to secretions. The peak airway pressure today is 26 post tracheostomy tube i nsertion. The patient is on sedation. The patient is on propofol at 70 mcg/kg per minute and the patient is also on fentanyl and 0.2 mcg/kg/h. The patient is not receiving any paralytics for now. No feeding for now post extubation insertion. No other issues for now. He remains off Cleviprex. He is hemodynamically stable. Inflammatory markers were essentially dropping on earlier evaluation and I've also started the patient on Lasix. On today's evaluation, the LDH is 1073, slightly higher and his CRP is at 15, slightly higher, his d-dimer is at 1.77, slightly lower. As for the fluid balance, the patient is -3 L over the past 24 hours and the patient was given diuretics and the patient is receiving Lasix 40 mg IV every 24 hours. He is hemodynamically stable. The plan for today is to give the patient lower sedation and try to evaluate his mental status. The plan is to gradually wean off his propofol. 07/12/2020 the patient is tracheostomy tube insertion of PEG tube insertion. Note that immediately post tracheostomy tube insertion, the airway pressures dropped considerably. Meanwhile, the patient remains on a mechanical ventilator on today's evaluation the patient is an assist-control mode with a tidal volume of 400 and a fever of 12 with an FiO2 of 50% and a rate of 20. This is an assist-control mode, volume cycle. He remains sedated. He is receiving propofol at 70 mcg/kg per minute. Patient is also on fentanyl at 3.5 mcg/kg/h. He is on no paralytics. The blood gases showing a pH of 7.42 with a pCO2 of 47 and pO2 of 53. His current pulse ox on a monitor is in the order of 84-87%. The chest x-ray is showing bilateral pulmonary infiltrates consistent with ARDS. He has a tracheostomy tube and the position is adequate. He has also previous thoracotomy scar on the chest x-ray. He has an LDH of 1077 with a CRP of 62. The d-dimer is currently at 1.22. He remains on a prednisone 40 mg by mouth daily and this which was done yesterday as the patient was taken off IV Solu- Medrol. He is on Levemir insulin 20 units today twice a day and the patient is also on NovoLog 7 units every 6 hours and this line scattered coverage. The patient is also receiving Lasix 40 mg every 24 hours. The fluid balance has been negative and his continues to be negative of 1.1 L over the past 24 hours. He is off Cleviprex for now and his blood pressure is stable. No fever. The sputum is positive for gram-negative bacillus and the patient was having excessive amount of rest or secretions. Suggest covering the patient with antibiotics I'm going to start him on cefepime 2 g every 12 hours pending further cultures from the sputum. On today's evaluation, the patient seemed to be quite asynchronous the mechanical ventilator while being on a volume cycled. ventilator changes were done. 16 2020, the patient remains critically ill, on a mechanical ventilator , post tracheostomy tube insertion. In terms of sedation, the patient remains on a combination of propofol and fentanyl. Propofol is running at 70 mcg/kg/m visit fentanyl is -3.5 mcg/kg/h. He is off paralytics. He is on assist control mode and he was switched to pressure control mode of ventilation because of Lasix daily and double stacking. He is currently on a pressure control of 18 with a PEEP of 16 and an inspiratory time of 0.9 with a rate of 20 and FiO2 of 90%. His current blood gases showed a pH of 7.44 with a pCO2 of 34 and pO2 of 55. Chest x-ray is showing bibasilar pulmonary infiltrates slightly worse on the left. Tracheostomy tube is in a good location. His current pulse ox on the monitor is 88%. The peak static pressures are 36 and 35 respectively. His chest x-ray showing some limited infiltration left lung baseairfit noted yesterday, the patient was getting more febrile and he was becoming also hypotensive. His sputum was growing gram-negative bacillus returned goods inspector to be Klebsiella. He was given a total of 2 L of IV fluid bolus and the patient was started on IV cefepime as an empiric antibiotic coverage. His pro-calcitonin level is currently at 0.26. He is currently on IV cefepime. He is also running pressors with norepinephrine infusion at 0.02 mcg/kg per minute.Fluid balance over the past 24 hours has been 2.1 L. The patient currently is quite silverman ccessfully mechanical ventilator. He has a fecal management system. He is receiving enteral feeding for nutritional support and is currently on vital 8. At the rate of 60 mL an hour. No abdominal distention. He is stooling. He has been on Levemir insulin and 20 units twice a day and he is also on NovoLog 7 units every 6 hours and a sliding scale coverage. Objective - Vital Signs Vital signs: Vital Signs Temp 87.9 F L 07/13/20 04:00 Pulse 93 07/13/20 07:00 Resp 27 H 07/13/20 07:00 BP 115/58 07/13/20 06:00 Pulse Ox 89 L 07/13/20 07:00 Intake & Output 07/12/20 07/13/20 07/13/20 18:59 06:59 18:59 Intake Total 2821.862 734.030 23 Output Total 695 755 60 Balance 2126.862 -20.970 -37 Weight 136.8 kg Intake: IV 2376 376 23 Cefepime 2 gm In Sodium 100 100 Chloride 0.9% 100 ml @ 25 mls/hr IVPB Q12HR [facility] Rx #:[id number] Pressure bag 36 36 3 Sodium Chloride 0.9% 1, 240 240 20 000 ml @ 20 mls/hr IV . Q24H [facility] Rx#:[id number] Sodium Chloride 0.9% 1, 2000 000 ml @ 999 mls/hr IV . Q1H1M [facility] Rx#:[id number] Intake, IV Titration 163.862 86.030 Amount Norepinephrine 8 mg In 86.030 Sodium Chloride 0.9% 250 ml @ 0.05 MCG/KG/MIN 13. 061 mls/hr IV .[id number] [facility] Rx#:[id number] fentaNYL (PF). 1,000 mcg 63.862 In Sodium Chloride 0.9% 80 ml @ Per Protocol IV . Q0M [facility] Rx#:[id number] propofoL 1,000 mg In 100 Empty Bag 1 bag @ Titrate IV .Q0M [facility] Rx#: [id number] Tube Feeding 192 192 Other 90 80 Output: Urine 695 755 60 Other: Voiding Method Indwelling Catheter Indwelling Catheter ABP, PAP, CO, CI - Last Documented Arterial Blood Pressure 116/60 - Exam Sedated , currently intubated and mechanically ventilated. There is tracheostomy tube in place extra long Bivona #8. No bleeding from the stoma Head exam was generally normal. There was no scleral icterus or corneal arcus. Mucous membranes were moist. Neck was supple and without jugular venous distension, thyromegaly, or carotid bruits. Carotids were easily palpable bilaterally. There was no adenopathy. Orogastric and orotracheal tube are both in place.tracheostomy tube in place Cardiac exam revealed the PMI to be normally situated and sized. The rhythm was regular and no extrasystoles were noted during several minutes of auscultation. The first and second heart sounds were normal and physiologic splitting of the second heart sound was noted. There were no murmurs, rubs, clicks, or gallops. Lungs reveal bilateral crackles and diffuse scattered bilateral rhonchi. There are no wheezes. Breath sounds equal bilaterally. Abdominal exam revealed normal bowel sounds. The abdomen was soft, non-tender, and without masses, organomegaly, or appreciable enlargement of the abdominal aorta. PEG tube site is dry clean and intact Examination of the extremities revealed easily palpable radial, femoral and pedal pulses. There was no cyanosis, clubbing or edema. Examination of the skin revealed no evidence of significant rashes, suspicious appearing nevi or other concerning lesions. Neurologic examination could not be assessed as the patient's is sedated. - Labs CBC & Chem 7: 07/13/20 04:15 07/13/20 04:15 Labs: Abnormal Lab Results - Last 24 Hours (Table) 07/12/20 07/12/20 07/12/20 Range/Units 03:45 03:45 08:00 RBC (4.30-5.90) m/uL Hgb (13.0-17.5) gm/dL Hct (39.0-53.0) % RDW (11.5-15.5) % Plt Count (150-450) k/uL Lymphocytes # (Manual) 0.29 L (1.0-4.8) k/uL Metamyelocytes # (Man) 0.12 H (0) k/uL D-Dimer (<0.60) mg/L FEU ABG pH (7.35-7.45) ABG pCO2 (35-45) mmHg ABG pO2 (83-108) mmHg ABG HCO3 (21-25) mmol/L ABG Total CO2 (19-24) mmol/L ABG O2 Saturation (94-97) % Potassium (3.5-5.1) mmol/L BUN (9-20) mg/dL Creatinine (0.66-1.25) mg/dL Glucose (74-99) mg/dL POC Glucose (mg/dL) (75-99) mg/dL Calcium (8.4-10.2) mg/dL Ferritin 1089.7 H (22.0-322.0) ng/mL AST (17-59) U/L Lactate Dehydrogenase (313-618) U/L C-Reactive Protein (<10.0) mg/L Total Protein (6.3-8.2) g/dL Albumin (3.5-5.0) g/dL Procalcitonin 0.26 H (0.02-0.09) ng/mL 07/12/20 07/12/20 07/12/20 Range/Units 08:37 11:37 14:07 RBC (4.30-5.90) m/uL Hgb (13.0-17.5) gm/dL Hct (39.0-53.0) % RDW (11.5-15.5) % Plt Count (150-450) k/uL Lymphocytes # (Manual) (1.0-4.8) k/uL Metamyelocytes # (Man) (0) k/uL D-Dimer (<0.60) mg/L FEU ABG pH 7.46 H (7.35-7.45) ABG pCO2 (35-45) mmHg ABG pO2 61 L 52 L* (83-108) mmHg ABG HCO3 28 H 26 H (21-25) mmol/L ABG Total CO2 30 H 27 H (19-24) mmol/L ABG O2 Saturation 91.5 L 86.9 L (94-97) % Potassium (3.5-5.1) mmol/L BUN (9-20) mg/dL Creatinine (0.66-1.25) mg/dL Glucose (74-99) mg/dL POC Glucose (mg/dL) 72 L (75-99) mg/dL Calcium (8.4-10.2) mg/dL Ferritin (22.0-322.0) ng/mL AST (17-59) U/L Lactate Dehydrogenase (313-618) U/L C-Reactive Protein (<10.0) mg/L Total Protein (6.3-8.2) g/dL Albumin (3.5-5.0) g/dL Procalcitonin (0.02-0.09) ng/mL 07/12/20 07/12/20 07/12/20 Range/Units 17:21 22:43 23:50 RBC 3.79 L (4.30-5.90) m/uL Hgb 12.0 L (13.0-17.5) gm/dL Hct 33.8 L (39.0-53.0) % RDW 15.7 H (11.5-15.5) % Plt Count 65 L (150-450) k/uL Lymphocytes # (Manual) (1.0-4.8) k/uL Metamyelocytes # (Man) (0) k/uL D-Dimer (<0.60) mg/L FEU ABG pH (7.35-7.45) ABG pCO2 (35-45) mmHg ABG pO2 (83-108) mmHg ABG HCO3 (21-25) mmol/L ABG Total CO2 (19-24) mmol/L ABG O2 Saturation (94-97) % Potassium (3.5-5.1) mmol/L BUN (9-20) mg/dL Creatinine (0.66-1.25) mg/dL Glucose (74-99) mg/dL POC Glucose (mg/dL) 107 H 121 H (75-99) mg/dL Calcium (8.4-10.2) mg/dL Ferritin (22.0-322.0) ng/mL AST (17-59) U/L Lactate Dehydrogenase (313-618) U/L C-Reactive Protein (<10.0) mg/L Total Protein (6.3-8.2) g/dL Albumin (3.5-5.0) g/dL Procalcitonin (0.02-0.09) ng/mL 07/13/20 07/13/20 07/13/20 Range/Units 04:15 04:15 04:15 RBC 3.76 L (4.30-5.90) m/uL Hgb (13.0-17.5) gm/dL Hct 33.0 L (39.0-53.0) % RDW (11.5-15.5) % Plt Count (150-450) k/uL Lymphocytes # (Manual) (1.0-4.8) k/uL Metamyelocytes # (Man) (0) k/uL D-Dimer 1.35 H (<0.60) mg/L FEU ABG pH (7.35-7.45) ABG pCO2 (35-45) mmHg ABG pO2 (83-108) mmHg ABG HCO3 (21-25) mmol/L ABG Total CO2 (19-24) mmol/L ABG O2 Saturation (94-97) % Potassium 3.3 L (3.5-5.1) mmol/L BUN 65 H (9-20) mg/dL Creatinine 1.43 H (0.66-1.25) mg/dL Glucose 157 H (74-99) mg/dL POC Glucose (mg/dL) (75-99) mg/dL Calcium 7.3 L (8.4-10.2) mg/dL Ferritin (22.0-322.0) ng/mL AST 75 H (17-59) U/L Lactate Dehydrogenase 1564 H (313-618) U/L C-Reactive Protein 220.6 H (<10.0) mg/L Total Protein 3.9 L (6.3-8.2) g/dL Albumin 2.0 L (3.5-5.0) g/dL Procalcitonin (0.02-0.09) ng/mL 07/13/20 Range/Units 05:17 RBC (4.30-5.90) m/uL Hgb (13.0-17.5) gm/dL Hct (39.0-53.0) % RDW (11.5-15.5) % Plt Count (150-450) k/uL Lymphocytes # (Manual) (1.0-4.8) k/uL Metamyelocytes # (Man) (0) k/uL D-Dimer (<0.60) mg/L FEU ABG pH (7.35-7.45) ABG pCO2 34 L (35-45) mmHg ABG pO2 55 L* (83-108) mmHg ABG HCO3 (21-25) mmol/L ABG Total CO2 (19-24) mmol/L ABG O2 Saturation 88.4 L (94-97) % Potassium (3.5-5.1) mmol/L BUN (9-20) mg/dL Creatinine (0.66-1.25) mg/dL Glucose (74-99) mg/dL POC Glucose (mg/dL) (75-99) mg/dL Calcium (8.4-10.2) mg/dL Ferritin (22.0-322.0) ng/mL AST (17-59) U/L Lactate Dehydrogenase (313-618) U/L C-Reactive Protein (<10.0) mg/L Total Protein (6.3-8.2) g/dL Albumin (3.5-5.0) g/dL Procalcitonin (0.02-0.09) ng/mL Microbiology - Last 24 Hours (Table) 07/10/20 11:51 Gram Stain - Final Sputum Sputum Culture - Final Klebsiella oxytoca Assessment and Plan Plan: 1 ARDS with secondary acute hypoxemic respiratory failure secondary to COVID 19 pneumonia, with significantly worsening oxygenation, status post intubation on 06/29/2020. The patient has received both convalescent plasma and Tocilizumab, currently on his own. Meanwhile, the patient is post tracheostomy tube insertion and tracheostomy was done on 07/10/2020. Consider the possibility of a left lower lobe pneumonia. There may be a superimposed infection. The patient is growing klebsiella in his sputum. The patient is currently on IV cefepime. Active like more septic yesterday the patient became hypotensive and received a total of 2 L of IV fluids and the patient is also on pressors at the low dose for now. Also, his mechanical ventilator was switched to a pressure control mode of ventilator and he is adequately ventilating. His oxygenation is remains poor with some ongoing hypoxemia and his blood. On today's evaluation. The catheter pressures are quite elevated. 2 History of chronic bronchial asthma. 3 left lower lobe pneumonia suspected and the patient has klebsiella in the sputum. There have a component of sepsis along with evolving DIC with ongoing thrombocytopenia. The patient is currently on IV cefepime. The patient is also on low-dose norepinephrine infusion. The patient will be taken off Lovenox 4 History of CAD, status post bypass grafting. 5 History of diabetes mellitus. 6 Hyperlipidemia by history. 7 Hypertension. 8 Hepatitis C. 9 History of pneumonia. 10 History of hypothyroidism. 11 History of osteoarthritis. 12 thrombocytopenia with persistent drop in his platelet count down to 65. We'll stop the Lovenox for now. check HIT antibodies Plan Wean propofol Check triglyceride level, the patient's blood samples are likely lipemic and we're going to wean off the propofol and he had several and use Precedex if needed and combination with fentanyl. The patient is currently off paralytics Continue the pressure control mode of ventilator Hold Lasix Utilize norepinephrine infusion for blood pressure control The patient is Still in the sputum and the patient will be continued on IV cefepime 2 g every 12 hours Hold Lovenox and apply SCD for DVT prophylaxis. Check HIT antibodies. check DIC profile Continue enteral feeding for nutritional support, post PEG tube insertion Monitor inflammatory markers Chest x-ray stable noted from today and there is some limited left lower lobe consolidation Continue Levemir for blood sugar control The patient adequate blood sugar control Continue the rest of the supportive care Critically care evaluation more than 30 minutes Time with Patient: Greater than 30
[2020-07-13] MEDS: INSULIN DETEMIR (LEVEMIR) 100 UNIT/ML SYR SQ SCH ×2 (08:35→20:07)
[2020-07-13] MEDS: LEVOTHYROXINE 75 MCG TAB PO SCH (08:35)
[2020-07-13] MEDS: amLODIPine 10 MG TAB PO SCH (08:35)
[2020-07-13] MEDS: CHLORHEXIDINE GLUCONATE 15 ML CUP MUCOUS MEM SCH ×2 (08:36→20:06)
[2020-07-13] MEDS: CEFEPIME 2 GM in SODIUM CHLORIDE 0.9% 100 ML IVPB SCH ×2 (08:38→20:07)
[2020-07-13] MEDS: CHOLECALCIFEROL 25 MCG (1000 IU) TABLET PO SCH (08:38)
[2020-07-13] MEDS: ASCORBIC ACID 500 MG TAB PO SCH (08:38)
[2020-07-13] MEDS: ENOXAPARIN 40 MG/0.4 ML SYRINGE SQ SCH (08:39)
[2020-07-13] MEDS: FENOFIBRATE 160 MG TAB PO SCH (08:39)
[2020-07-13] MEDS: SENNOSIDES-DOCUSATE SODIUM 1 EACH TAB PO SCH (08:42)
[2020-07-13] MEDS: ZINC SULFATE 220 MG CAP PO SCH (08:42)
[2020-07-13] MEDS: MULTIVITAMINS, THERA 1 EACH TAB PO SCH (08:42)
[2020-07-13] MEDS: predniSONE 20 MG TAB PO SCH (08:42)
[2020-07-13] MEDS: PANTOPRAZOLE 40 MG/10 ML VIAL IVP SCH (08:42)
[2020-07-13] MEDS: PIOGLITAZONE 30 MG TAB PO SCH (08:42)
[2020-07-13] MEDS: DEXMEDETOMIDINE/0.9% NACL(PMX) 400 MCG in EMPTY BAG 1 BAG IV SCH ×3 (08:53→22:00)
[2020-07-13 09:04] LABS: HGB 11.2 gm/dL (13.0-17.5); Platelet Count 62 k/uL (150-450)
[2020-07-13 09:05] LABS: Neutrophils % (A) 92 %
[2020-07-13 09:24] LABS: Dohle Bodies Present; Toxic Granulation Present; Toxic Vacuolation Present
--- NOTE | 2020-07-13 10:52 | P.PN ---
Subjective Progress Note Date: 07/13/20 CHIEF COMPLAINT: Respiratory failure HISTORY OF PRESENT ILLNESS: Patient remains in the ICU and intubated. He is status post tracheostomy and PEG tube placement. Patient is tolerating tube feedings. He is currently at goal. Patient is on Levophed. They are decreasing the to prevent. Patient is still having bleeding at the tracheostomy site. His platelets have come down to 62. The Lovenox was discontinued. Hit antibodies been checked. He did have a temp of 101 yesterday afternoon. WBC 5.5 hemoglobin 11.2 platelets 62 potassium 3.3 creatinine 1.43 PHYSICAL EXAM: VITAL SIGNS: Reviewed. GENERAL: Well-developed in no acute distress. HEENT: No sclera icterus. Extraocular movements grossly intact. Moist buccal mucosa. Head is atraumatic, normocephalic. Trach site has bleeding present ABDOMEN: Soft. Nondistended. Nontender. PEG tube site clean dry and intact NEUROLOGIC: Intubated and sedated ASSESSMENT: 1. Acute hypoxic respiratory failure with prolonged respiratory failure status post tracheostomy placement 2. Covid 19 pneumonia 3. Severe protein calorie malnutrition status post PEG tube placement 4. Thrombocytopenia PLAN: -Continue ICU management -Continue supportive care -Continue tube feedings -Continue to monitor bleeding at tracheostomy site -Agree with stopping Lovenox Physician Aboriginal Liaison Officer note has been reviewed by physician. Signing provider agrees with the documented findings, assessment, and plan of care. Objective - Vital Signs Vital signs: Vital Signs Temp 99.7 F H 07/13/20 08:00 Pulse 67 07/13/20 10:30 Resp 17 07/13/20 10:30 BP 115/58 07/13/20 06:00 Pulse Ox 91 L 07/13/20 10:30 Intake & Output 07/12/20 07/13/20 07/13/20 18:59 06:59 18:59 Intake Total 2921.862 734.030 286.299 Output Total 695 755 360 Balance 2226.862 -20.970 -73.701 Weight 136.8 kg Intake: IV 2376 376 92 Cefepime 2 gm In Sodium 100 100 Chloride 0.9% 100 ml @ 25 mls/hr IVPB Q12HR [facility] Rx #:[id number] Pressure bag 36 36 12 Sodium Chloride 0.9% 1, 240 240 80 000 ml @ 20 mls/hr IV . Q24H [facility] Rx#:[id number] Sodium Chloride 0.9% 1, 2000 000 ml @ 999 mls/hr IV . Q1H1M [facility] Rx#:[id number] Intake, IV Titration 263.862 86.030 130.299 Amount Norepinephrine 8 mg In 86.030 30.299 Sodium Chloride 0.9% 250 ml @ 0.05 MCG/KG/MIN 13. 061 mls/hr IV .[id number] [facility] Rx#:[id number] fentaNYL (PF). 1,000 mcg 63.862 In Sodium Chloride 0.9% 80 ml @ Per Protocol IV . Q0M [facility] Rx#:[id number] propofoL 1,000 mg In 200 100 Empty Bag 1 bag @ Titrate IV .Q0M [facility] Rx#: [id number] Tube Feeding 192 192 64 Other 90 80 Output: Urine 695 755 360 Other: Voiding Method Indwelling Catheter Indwelling Catheter ABP, PAP, CO, CI - Last Documented Arterial Blood Pressure 108/55 - Labs CBC & Chem 7: 07/13/20 04:15 07/13/20 04:15 Labs: Abnormal Lab Results - Last 24 Hours (Table) 07/12/20 07/12/20 07/12/20 Range/Units 08:00 11:37 14:07 RBC (4.30-5.90) m/uL Hgb (13.0-17.5) gm/dL Hct (39.0-53.0) % RDW (11.5-15.5) % Plt Count (150-450) k/uL Lymphocytes # (1.0-4.8) k/uL D-Dimer (<0.60) mg/L FEU ABG pH 7.46 H (7.35-7.45) ABG pCO2 (35-45) mmHg ABG pO2 52 L* (83-108) mmHg ABG HCO3 26 H (21-25) mmol/L ABG Total CO2 27 H (19-24) mmol/L ABG O2 Saturation 86.9 L (94-97) % Potassium (3.5-5.1) mmol/L BUN (9-20) mg/dL Creatinine (0.66-1.25) mg/dL Glucose (74-99) mg/dL POC Glucose (mg/dL) 72 L (75-99) mg/dL Calcium (8.4-10.2) mg/dL Magnesium (1.6-2.3) mg/dL AST (17-59) U/L Lactate Dehydrogenase (313-618) U/L Creatine Kinase (55-170) U/L C-Reactive Protein (<10.0) mg/L Total Protein (6.3-8.2) g/dL Albumin (3.5-5.0) g/dL Triglycerides (<150) mg/dL Procalcitonin 0.26 H (0.02-0.09) ng/mL 07/12/20 07/12/20 07/12/20 Range/Units 17:21 22:43 23:50 RBC 3.79 L (4.30-5.90) m/uL Hgb 12.0 L (13.0-17.5) gm/dL Hct 33.8 L (39.0-53.0) % RDW 15.7 H (11.5-15.5) % Plt Count 65 L (150-450) k/uL Lymphocytes # (1.0-4.8) k/uL D-Dimer (<0.60) mg/L FEU ABG pH (7.35-7.45) ABG pCO2 (35-45) mmHg ABG pO2 (83-108) mmHg ABG HCO3 (21-25) mmol/L ABG Total CO2 (19-24) mmol/L ABG O2 Saturation (94-97) % Potassium (3.5-5.1) mmol/L BUN (9-20) mg/dL Creatinine (0.66-1.25) mg/dL Glucose (74-99) mg/dL POC Glucose (mg/dL) 107 H 121 H (75-99) mg/dL Calcium (8.4-10.2) mg/dL Magnesium (1.6-2.3) mg/dL AST (17-59) U/L Lactate Dehydrogenase (313-618) U/L Creatine Kinase (55-170) U/L C-Reactive Protein (<10.0) mg/L Total Protein (6.3-8.2) g/dL Albumin (3.5-5.0) g/dL Triglycerides (<150) mg/dL Procalcitonin (0.02-0.09) ng/mL 07/13/20 07/13/20 07/13/20 Range/Units 04:15 04:15 04:15 RBC 3.76 L (4.30-5.90) m/uL Hgb 11.2 L (13.0-17.5) gm/dL Hct 33.0 L (39.0-53.0) % RDW (11.5-15.5) % Plt Count 62 L (150-450) k/uL Lymphocytes # 0.0 L (1.0-4.8) k/uL D-Dimer 1.35 H (<0.60) mg/L FEU ABG pH (7.35-7.45) ABG pCO2 (35-45) mmHg ABG pO2 (83-108) mmHg ABG HCO3 (21-25) mmol/L ABG Total CO2 (19-24) mmol/L ABG O2 Saturation (94-97) % Potassium 3.3 L (3.5-5.1) mmol/L BUN 65 H (9-20) mg/dL Creatinine 1.43 H (0.66-1.25) mg/dL Glucose 157 H (74-99) mg/dL POC Glucose (mg/dL) (75-99) mg/dL Calcium 7.3 L (8.4-10.2) mg/dL Magnesium 2.4 H (1.6-2.3) mg/dL AST 75 H (17-59) U/L Lactate Dehydrogenase 1564 H (313-618) U/L Creatine Kinase 608 H (55-170) U/L C-Reactive Protein 220.6 H (<10.0) mg/L Total Protein 3.9 L (6.3-8.2) g/dL Albumin 2.0 L (3.5-5.0) g/dL Triglycerides (<150) mg/dL Procalcitonin (0.02-0.09) ng/mL 07/13/20 07/13/20 Range/Units 04:15 05:17 RBC (4.30-5.90) m/uL Hgb (13.0-17.5) gm/dL Hct (39.0-53.0) % RDW (11.5-15.5) % Plt Count (150-450) k/uL Lymphocytes # (1.0-4.8) k/uL D-Dimer (<0.60) mg/L FEU ABG pH (7.35-7.45) ABG pCO2 34 L (35-45) mmHg ABG pO2 55 L* (83-108) mmHg ABG HCO3 (21-25) mmol/L ABG Total CO2 (19-24) mmol/L ABG O2 Saturation 88.4 L (94-97) % Potassium (3.5-5.1) mmol/L BUN (9-20) mg/dL Creatinine (0.66-1.25) mg/dL Glucose (74-99) mg/dL POC Glucose (mg/dL) (75-99) mg/dL Calcium (8.4-10.2) mg/dL Magnesium (1.6-2.3) mg/dL AST (17-59) U/L Lactate Dehydrogenase (313-618) U/L Creatine Kinase (55-170) U/L C-Reactive Protein (<10.0) mg/L Total Protein (6.3-8.2) g/dL Albumin (3.5-5.0) g/dL Triglycerides 1833 H (<150) mg/dL Procalcitonin (0.02-0.09) ng/mL Microbiology - Last 24 Hours (Table) 07/10/20 11:51 Gram Stain - Final Sputum Sputum Culture - Final Klebsiella oxytoca
[2020-07-13] MEDS: SODIUM CHLORIDE 0.9% 1,000 ML IV SCH (11:22)
[2020-07-13] MEDS: METOPROLOL TARTRATE 25 MG TAB PO SCH ×2 (11:22→20:06)
[2020-07-13] MEDS: polyethylene glycoL 3350 17 GM POWD.PACK PO SCH (11:23)
[2020-07-13] MEDS: VANCOMYCIN 2,500 MG in SODIUM CHLORIDE 0.9% 500 ML 500 ML IVPB SCH (12:12)
[2020-07-13 12:26] LABS: Glucose,Whole Blood 186 mg/dL (75-99)
--- NOTE | 2020-07-13 13:23 | P.PN ---
Subjective Progress Note Date: 07/13/20 HISTORY OF PRESENT ILLNESS This is a 80-year-old male patient of Dr. 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 Patient states that he has had symptoms for 2 weeks which include body aches, shortness of breath coming foggy thinking. He denies any nausea, vomiting or diarrhea. He states he has had sputum production. He denies any lower extremity edema. Patient does not have home oxygen. Patient presented to [facility] emergency center for evaluation. Chest x-ray reveals bibasilar patchy opacities consistent with multifocal infection. No pleural effusions or pneumothorax. Temperature 100.1, heart rate 75, respiratory rate 24, blood pressure 125/63 and pulse ox 83% on room air. EKG was a sinus rhythm at 66 bpm. CBC was unremarkable except for lymphocytosis of 0.5. INR 1.0. Sodium 135, BUN 28 creatinine 1.68. Blood sugar 202. Lactic acid 1.6. Liver function tests were normal. LDH 730. C- reactive protein and a 5.9. ProBNP 522. 4/2: Patient is seen today on the observation unit as an overflow. Pulse ox is 84% on 15 L hyponasal cannula and nonrebreather. Patient seems to have more shortness of breath today and also complains of wheezing. No significant cough production. No fever or chills. No chest pain. WBC 11.2, hemoglobin 14.8, platelet count 233. Repeat chest x-ray reveals findings consistent with pneumonia. Pro-calcitonin 0.12. Blood sugars running in the 200s. Patient to be moved to the intensive care unit. 06/30: Patient declined significantly in the afternoon yesterday ended up on mechanical ventilation, he been sedated currently his marker are still quite bit high. Patient still required high demand O2 along with high PEEP of 15-20 to keep his pulse ox at the margin of 90 percentile. His blood sugars mildly elevated and still been managed on insulin, white blood cell is up to 13,000 today, his blood gas shows pO2 of 653 only. CO2 of 27 and pH of 7.31 creatinine has slightly improved since yesterday he C-reactive protein is up to 144 and LDH of 748. 4/4: Patient is still on mechanical ventilation is FiO2 is down to 70% still on PEEP of 18 I had long discussion with the and update her on with outpatient patient's condition still guarded this point his prognosis still not good but he has slight improvement compared to yesterday, his kidney function has improved slightly bit compared to yesterday as well. 07/02: Patient remains in the ICU. Patient is intubated and on mechanical ventilation with tidall volume 450,, FiO2 60%, PEEP of 18 which is improved from yesterday. He is pulse oxing 92-95%. He has been afebrile, heart rate in the 40s, respiratory rate 28, blood pressure 148/67. mesh cutter is sinus bradycardia. Repeat lab work reveals WBC 12.4, hemoglobin 13.1, platelet count 266. Sed rate 33. D-dimer 0.45. Sodium 140, potassium 4.7, chloride 110, CO2 24, BUN 44 and creatinine 0.25. Blood sugars running between 197 and 248. Ferritin 629.9. LDH 704. He is currently nothing by mouth. 07/03: Patient has been afebrile, heart rate 61, blood pressure 177/104, pulse ox 97%. Patient remains intubated and on mechanical ventilation with tidal volume 450, FiO2 60, PEEP of 18. Repeat blood work reveals WBC 15.9, hemoglobin 14.9, platelet count 341. Lymphocytes 0.5. Sodium 140, potassium 4.9, chloride 109, CO2 22, BUN 44 and creatinine 1. LDH 951. Liver function tests normal. Blood sugars running between 221 and 299. Levemir will be increased to 20 units twice daily and scheduled NovoLog will be increased to 7 units every 6 hours along with NovoLog scale continued. Tube feedings are at goal. Repeat chest x-ray reveals diffuse pleural parenchymal changes correlate for interstitial pneumonia is stable. Dr. Beverly has stopped Nimbex and Cleviprex. 07/04: Heart rate has been running in the 40s and Lopressor decreased from 50 mg twice daily to 25 mg twice daily and parameters to hold if heart rate is less than 55. Blood pressure is still been an issue and patient was weaned off Alan viprex. She remains intubated and on mechanical ventilation with tidal volume 520, FiO2 60, PEEP of 18. Blood sugar was still running high until this morning, this morning's blood sugar 194. Adjustments were made to his insulin yesterday and tube feeding dose decreased today. Will hold on making any further changes with insulins. Repeat blood work reveals sed rate of 90, d- dimer 0.73. Sodium 141, potassium 4.6, chloride 112, CO2 25, BUN 43, creatinine 1.10. Ferritin 683.9. LDH 745. Repeat chest x-ray reveals diffuse bilateral airspace disease stable correlate for diffuse pneumonia, ARDS versus pulmonary edema. 07/05: Patient remains intubated and on mechanical ventilation with tidal volume 450, FiO2 60 and PEEP of 20. Patient has been afebrile, heart rate in the 40s, respiratory rate 28, blood pressure 134/60, pulse ox 98%. Lopressor is not been given at a lower rate due to bradycardia. Repeat blood work reveals WBC 13.6, hemoglobin 13.6, platelet count 292. Blood sugars running between 148 and 179. 07/06: Patient remains in the intensive care unit intubated and on mechanical ventilation with tidal volume 450, FiO2 60, PEEP of 20. He is on propofol and fentanyl. He is also currently on Cleviprex. Repeat chest x-ray reveals diffuse interstitial infiltrates are stable. WBC 14.2, hemoglobin 14.2, platelet count 292. Creatinine 0.97 and BUN 48. Blood sugars running between 165 an 187. Patient may require PEG tube and trach. 07/07: Repeat chest x-ray reveals mild improving nonspecific infiltrate can be compatible with atypical pneumonia. He remains in the intensive care unit intubated and on mechanical ventilation with tidal volume 450, FiO2 decreased to 50% and PEEP of 16. He is still on Cleviprex. He remains on sedation. He is tolerating tube feedings. Repeat blood work reveals WBC 9.1, hemoglobin 12.3, platelet count 244. D-dimer 1.35. BUN 41 creatinine 0.86. Blood sugars running between 146 and 168. C-reactive protein 7.9. CK 52. 07/08: Patient remains in the intensive care unit. He is on propofol and Ventolin. He is on mechanical ventilation with tidal volume 450, FiO2 50%, PEEP down to 16. Tube feedings are 10 MLS per hour at goal. POO 97%, HR improved and patient received lopressor last night and this morning. He as been afebrile. BP 148/72 and on Cleviprex. WBC 14.3. D-dimer 1.92. BUN 48 and creatinine 0.93. Calcium 8.2. Ferritin 548.2. Liver function tests are normal. LDH 1224. CK 65. C-reactive protein 6.6. 07/09: Patient remains intubated and on mechanical ventilation with tidal volume 450, FiO2 50 and PEEP of 16. Amlodipine was increased to [address] Dumont for blood pressure control. Patient remains on Cleviprex. Patient is also on fentanyl and propofol. Patient is also on tube feedings. Patient is on IV Lasix and IV Solu-Medrol. Proceeding has been consulted for PEG and trach placement. Repeat chest x-ray reveals diffuse bilateral predominantly interstitial infiltrates with basilar consolidative infiltrate stable. Patient has been afebrile, heart rate 52, blood pressure 149/74, pulse ox 89%. Repeat blood work reveals WBC 12.3, hemoglobin 13.7. D-dimer 2. Sodium 136, potassium 4.3, chloride 110, CO2 22, BUN 45 and creatinine 0.85. Sugars are running 136- 152. Ferritin 518.4. LDH 949, CK 52. C-reactive protein 7.3. 07/10: She remains intubated and on mechanical ventilation with tidal volume 380, FiO2 50, PEEP of 14 which is down from yesterday. Patient is scheduled for PEG tube and trach insertion today. He has been afebrile, heart rate in the 50s, blood pressure 129/69, pulse ox 93%. Repeat blood work reveals WBC 11.3, hemoglobin 14.6. Electrolytes normal. Creatinine 0.81. Blood sugars are running between 100 2244. LDH 925, CK 52, C-reactive protein 7.4. 07/11: Patient underwent trach and PEG tube placement yesterday with Dr. Rodríguez. He is currently on vent settings with tidal volume 650, FiO2 of 50%, PEEP of 12. Patient has been afebrile, heart rate in the 40s and 50s, blood pressure 105/54, pulse ox 87%. Repeat blood work reveals platelet count 149. Electrolytes normal, BUN 47 creatinine 0.85. Blood sugars running between 124 and 138. LDH 1073, CK 81, C-reactive protein 15.1. D-dimer 1.77. Prognosis remains guarded. 07/12: Patient remains in the intensive care unit on mechanical ventilation with pulse ox of 85% with tidal volume 700, FiO2 80 and PEEP of 14. Repeat blood work reveals WBC 5.8, hemoglobin 13.8, platelet count 104. D-dimer 1.22. Sodium 138, potassium 3.3, chloride 106, CO2 27, BUN 56 and creatinine 1.17. LDH 1077. C-reactive protein 62.2. Repeat chest x-ray reveals improvement in lung volume, aeration. Patient has been tolerating tube feedings which were started yesterday. No residuals. Patient has small amount of bleeding at the tracheostomy site. Patient is on IV antibiotics in form of cefepime. Sputum culture is in progress. 07/13: Patient remains on mechanical ventilation. His pulse ox is 90% on FiO2 of 90, pressure control of 18, PEEP of 16. Patient has been afebrile, heart rate 60s, blood pressure 124/62. Blood pressure has been running low and he is status post 2 L of IV fluid. Patient is on a low-dose of levo fed. EP blood work reveals WBC 5.5, hemoglobin 11.2, platelet count 62. D-dimer 1.35. Potassium 3.3 and was replaced. BUN 65 and creatinine 1.43. Blood sugars 121- 186. LDH 1564, CK 680, C-reactive protein 220. Repeat chest x-ray reveals bilateral interstitial and alveolar infiltrate stable. Sputum culture is positive for Klebsiella and patient is on cefepime. Patient is tolerating tube feedings. Fecal management system is in place. Patient had more bleeding from his trach site during the night. REVIEW OF SYSTEMS Unable to obtain due to intubation, mechanical ventilation and sedation. PHYSICAL EXAMINATION Defer to pulmonary medicine due to intubation and active Covid status. Gen: This is a morbidly obese 80-year-old male. He is resting in ICU bed with trachea, mechanical ventilation. HEENT: Head is atraumatic, normocephalic. LUNGS: No intercostal retractions. NEUROLOGICAL: Patient issedated. ASSESSMENT AND PLAN 1. Acute hypoxic respiratory failure secondary to COVID19 and Klebsiella Pneumonia. Patient is status post Tocilizumab and convalescent plasma. C ontinue mechanical ventilation. Solu-Medrol discontinued, continue, vitamins C, vitamin D, zinc, Symbicort twice daily, continue vent management patient is managed by director education. Consult with Dr. Bhesania status posttrach and PEG tube insertion. Patient has been started on cefepime. 2. Possible secondary Klebsiella pneumonia. Patient is on cefepime. 3. Acute kidney injury with chronic kidney disease stage III. 3. History of coronary artery disease status post CABG, stable. Continue aspirin 81 mg daily, Lipitor 80 mg at bedtime, Lopressor 25 mg twice daily. 4. Diabetes mellitus type 2, uncontrolled with hyperglycemia secondary to steroids. Continue Actos 30 mg daily, NovoLog scale before meals and at bedtime, continue Levemir 20 units twice daily, NovoLog scale every 6 hours. No change in medications. 5. Hypertension. Continue Lopressor with parameters for bradycardia, Norvasc 10 mg daily. Continue Cleviprex. 6. Hyperlipidemia. Continue atorvastatin and fenofibrate 7. Hypothyroidism. Continue levothyroxine 75 g daily. 8. Bradycardia. Lopressor 25 mg twice daily . 9. Severe protein calorie malnutrition secondary to extended intubation. Patient is status post PEG tube insertion. Continue tube feedings. 10. Thrombocytopenia secondary to Covid. Lovenox discontinued. Hit antibodies ordered. Bleeding from trach monitored. 11. GI prophylaxis. Protonix. 12. DVT prophylaxis. Prognosis is guarded. Impression and plan of care have been directed as dictated by the signing physician. Mihaela Roberts nurse practitioner acting as scribe for signing physician. Objective - Vital Signs Vital signs: Vital Signs Temp 99.7 F H 07/13/20 08:00 Pulse 90 07/13/20 09:00 Resp 25 H 07/13/20 09:00 BP 115/58 07/13/20 06:00 Pulse Ox 90 L 07/13/20 09:00 Intake & Output 07/12/20 07/13/20 07/13/20 18:59 06:59 18:59 Intake Total 2921.862 734.030 117 Output Total 695 755 285 Balance 2226.862 -20.970 -168 Weight 136.8 kg Intake: IV 2376 376 69 Cefepime 2 gm In Sodium 100 100 Chloride 0.9% 100 ml @ 25 mls/hr IVPB Q12HR [facility] Rx #:[id number] Pressure bag 36 36 9 Sodium Chloride 0.9% 1, 240 240 60 000 ml @ 20 mls/hr IV . Q24H [facility] Rx#:[id number] Sodium Chloride 0.9% 1, 2000 000 ml @ 999 mls/hr IV . Q1H1M [facility] Rx#:[id number] Intake, IV Titration 263.862 86.030 Amount Norepinephrine 8 mg In 86.030 Sodium Chloride 0.9% 250 ml @ 0.05 MCG/KG/MIN 13. 061 mls/hr IV .[id number] [facility] Rx#:[id number] fentaNYL (PF). 1,000 mcg 63.862 In Sodium Chloride 0.9% 80 ml @ Per Protocol IV . Q0M [facility] Rx#:[id number] propofoL 1,000 mg In 200 Empty Bag 1 bag @ Titrate IV .Q0M [facility] Rx#: [id number] Tube Feeding 192 192 48 Other 90 80 Output: Urine 695 755 285 Other: Voiding Method Indwelling Catheter Indwelling Catheter ABP, PAP, CO, CI - Last Documented Arterial Blood Pressure 134/66 - Labs CBC & Chem 7: 07/13/20 04:15 07/13/20 04:15 Labs: Abnormal Lab Results - Last 24 Hours (Table) 07/12/20 07/12/20 07/12/20 Range/Units 08:00 11:37 14:07 RBC (4.30-5.90) m/uL Hgb (13.0-17.5) gm/dL Hct (39.0-53.0) % RDW (11.5-15.5) % Plt Count (150-450) k/uL Lymphocytes # (1.0-4.8) k/uL D-Dimer (<0.60) mg/L FEU ABG pH 7.46 H (7.35-7.45) ABG pCO2 (35-45) mmHg ABG pO2 52 L* (83-108) mmHg ABG HCO3 26 H (21-25) mmol/L ABG Total CO2 27 H (19-24) mmol/L ABG O2 Saturation 86.9 L (94-97) % Potassium (3.5-5.1) mmol/L BUN (9-20) mg/dL Creatinine (0.66-1.25) mg/dL Glucose (74-99) mg/dL POC Glucose (mg/dL) 72 L (75-99) mg/dL Calcium (8.4-10.2) mg/dL Magnesium (1.6-2.3) mg/dL AST (17-59) U/L Lactate Dehydrogenase (313-618) U/L Creatine Kinase (55-170) U/L C-Reactive Protein (<10.0) mg/L Total Protein (6.3-8.2) g/dL Albumin (3.5-5.0) g/dL Triglycerides (<150) mg/dL Procalcitonin 0.26 H (0.02-0.09) ng/mL 07/12/20 07/12/20 07/12/20 Range/Units : 22:43 23:50 RBC 3.79 L (4.30-5.90) m/uL Hgb 12.0 L (13.0-17.5) gm/dL Hct 33.8 L (39.0-53.0) % RDW 15.7 H (11.5-15.5) % Plt Count 65 L (150-450) k/uL Lymphocytes # (1.0-4.8) k/uL D-Dimer (<0.60) mg/L FEU ABG pH (7.35-7.45) ABG pCO2 (35-45) mmHg ABG pO2 (83-108) mmHg ABG HCO3 (21-25) mmol/L ABG Total CO2 (19-24) mmol/L ABG O2 Saturation (94-97) % Potassium (3.5-5.1) mmol/L BUN (9-20) mg/dL Creatinine (0.66-1.25) mg/dL Glucose (74-99) mg/dL POC Glucose (mg/dL) 107 H 121 H (75-99) mg/dL Calcium (8.4-10.2) mg/dL Magnesium (1.6-2.3) mg/dL AST (17-59) U/L Lactate Dehydrogenase (313-618) U/L Creatine Kinase (55-170) U/L C-Reactive Protein (<10.0) mg/L Total Protein (6.3-8.2) g/dL Albumin (3.5-5.0) g/dL Triglycerides (<150) mg/dL Procalcitonin (0.02-0.09) ng/mL 07/13/20 07/13/20 07/13/20 Range/Units 04:15 04:15 04:15 RBC 3.76 L (4.30-5.90) m/uL Hgb 11.2 L (13.0-17.5) gm/dL Hct 33.0 L (39.0-53.0) % RDW (11.5-15.5) % Plt Count 62 L (150-450) k/uL Lymphocytes # 0.0 L (1.0-4.8) k/uL D-Dimer 1.35 H (<0.60) mg/L FEU ABG pH (7.35-7.45) ABG pCO2 (35-45) mmHg ABG pO2 (83-108) mmHg ABG HCO3 (21-25) mmol/L ABG Total CO2 (19-24) mmol/L ABG O2 Saturation (94-97) % Potassium 3.3 L (3.5-5.1) mmol/L BUN 65 H (9-20) mg/dL Creatinine 1.43 H (0.66-1.25) mg/dL Glucose 157 H (74-99) mg/dL POC Glucose (mg/dL) (75-99) mg/dL Calcium 7.3 L (8.4-10.2) mg/dL Magnesium 2.4 H (1.6-2.3) mg/dL AST 75 H (17-59) U/L Lactate Dehydrogenase 1564 H (313-618) U/L Creatine Kinase 608 H (55-170) U/L C-Reactive Protein 220.6 H (<10.0) mg/L Total Protein 3.9 L (6.3-8.2) g/dL Albumin 2.0 L (3.5-5.0) g/dL Triglycerides (<150) mg/dL Procalcitonin (0.02-0.09) ng/mL 07/13/20 07/13/20 Range/Units 04:15 05:17 RBC (4.30-5.90) m/uL Hgb (13.0-17.5) gm/dL Hct (39.0-53.0) % RDW (11.5-15.5) % Plt Count (150-450) k/uL Lymphocytes # (1.0-4.8) k/uL D-Dimer (<0.60) mg/L FEU ABG pH (7.35-7.45) ABG pCO2 34 L (35-45) mmHg ABG pO2 55 L* (83-108) mmHg ABG HCO3 (21-25) mmol/L ABG Total CO2 (19-24) mmol/L ABG O2 Saturation 88.4 L (94-97) % Potassium (3.5-5.1) mmol/L BUN (9-20) mg/dL Creatinine (0.66-1.25) mg/dL Glucose (74-99) mg/dL POC Glucose (mg/dL) (75-99) mg/dL Calcium (8.4-10.2) mg/dL Magnesium (1.6-2.3) mg/dL AST (17-59) U/L Lactate Dehydrogenase (313-618) U/L Creatine Kinase (55-170) U/L C-Reactive Protein (<10.0) mg/L Total Protein (6.3-8.2) g/dL Albumin (3.5-5.0) g/dL Triglycerides 1833 H (<150) mg/dL Procalcitonin (0.02-0.09) ng/mL Microbiology - Last 24 Hours (Table) 07/10/20 11:51 Gram Stain - Final Sputum Sputum Culture - Final Klebsiella oxytoca
[2020-07-13 14:05] LABS: Ferritin 2237.1 ng/mL (22.0-322.0)
[2020-07-13] MEDS: fentaNYL (PF). 1,000 MCG in SODIUM CHLORIDE 0.9% 80 ML IV SCH ×2 (14:37→23:36)
[2020-07-13 17:25] LABS: Glucose,Whole Blood 197 mg/dL (75-99)
[2020-07-13] MEDS: ASPIRIN 81 MG PO SCH (20:07)
[2020-07-13] MEDS: ATORVASTATIN 80 MG TAB PO SCH (20:07)
[2020-07-13] MEDS: NOREPINEPHRINE 8 MG in SODIUM CHLORIDE 0.9% 250 ML IV SCH (20:07)
[2020-07-13] MEDS: allopurinoL 300 MG TAB PO SCH (20:10)
[2020-07-14 00:46] LABS: Glucose,Whole Blood 202 mg/dL (75-99)
[2020-07-14] MEDS: INSULIN ASPART (NovoLOG) 100 UNIT/ML VIAL SQ SCH ×4 (01:11→18:39)
[2020-07-14] MEDS: DEXMEDETOMIDINE/0.9% NACL(PMX) 400 MCG in EMPTY BAG 1 BAG IV SCH ×4 (04:17→23:31)
[2020-07-14 04:47] LABS: ABG Base Excess 0.1 mmol/L; ABG HCO3 26 mmol/L (21-25); ABG Oxygen Saturation 81.7 % (94-97); ABG PCO2 53 mmHg (35-45); ABG PH 7.31 (7.35-7.45); ABG TCO2 28 mmol/L (19-24); Allen Test Performed? Yes
[2020-07-14 04:54] LABS: Basophils % (A) 0 %; Eosinophils # (A) 0.1 k/uL (0-0.7); Eosinophils % (A) 2 %; HCT 31.9 % (39.0-53.0); HGB 10.8 gm/dL (13.0-17.5); Lymphocytes # (A) 0.2 k/uL (1.0-4.8); Lymphocytes % (A) 6 %; MCH 30.2 pg (25.0-35.0); MCHC 33.9 g/dL (31.0-37.0); MCV 89.2 fL (80.0-100.0); Mean Platelet Volume 11.4; Monocytes # (A) 0.1 k/uL (0-1.0); Monocytes % (A) 4 %; Neutrophils # (A) 2.6 k/uL (1.3-7.7); Neutrophils % (A) 86 %; RBC 3.57 m/uL (4.30-5.90); RDW 15.5 % (11.5-15.5)
[2020-07-14 05:06] LABS: Platelet Count 38 k/uL (150-450)
[2020-07-14 05:10] LABS: D-Dimer 1.48 mg/L FEU (<0.60)
[2020-07-14 05:17] LABS: ABG PO2 52 mmHg (83-108)
[2020-07-14 05:45] LABS: Albumin 1.9 g/dL (3.5-5.0); Calcium 7.6 mg/dL (8.4-10.2); Potassium 2.9 mmol/L (3.5-5.1); Total Bilirubin 0.8 mg/dL (0.2-1.3)
[2020-07-14 05:50] LABS: Magnesium 2.6 mg/dL (1.6-2.3)
[2020-07-14 06:01] LABS: Glucose,Whole Blood 159 mg/dL (75-99)
[2020-07-14] MEDS: VANCOMYCIN 2,500 MG in SODIUM CHLORIDE 0.9% 500 ML 500 ML IVPB SCH (06:12)
[2020-07-14] MEDS: LEVOTHYROXINE 75 MCG TAB PO SCH (06:13)
[2020-07-14] MEDS: POTASSIUM CHLORIDE 20 MEQ in WATER FOR INJECTION 1 100ML.BAG IVPB SCH ×3 (07:01→12:20)
[2020-07-14] MEDS: INSULIN DETEMIR (LEVEMIR) 100 UNIT/ML SYR SQ SCH ×2 (07:01→20:09)
[2020-07-14] MEDS: amLODIPine 10 MG TAB PO SCH (07:41)
[2020-07-14 08:06] LABS: C Reactive Protein 34.4 mg/dL (<1.0)
--- NOTE | 2020-07-14 08:10 | P.PN ---
Subjective Progress Note Date: 07/14/20 On 07/09/2020, I'm seeing this 80-year-old male patient in the intensive care unit and the patient is currently intubated on a mechanical ventilated because of a COVID 19 related pneumonia. The patient originally presented with hypoxic respiratory failure and his oxidation progressively got worse and the patient had to be intubated and placed on a mechanical ventilator. He is known to have chronic bronchial asthma, CAD, diabetes mellitus, hypertension, hyperlipidemia, osteoarthritis and hepatitis C. The patient is also has undergone previous coronary artery bypass surgery. The patient got intubated on 07/04/2020 and the patient has been intubated since. The patient is currently on assist control mode with a tidal volume of 450 and FiO2 of 50% with a PEEP of 16 and the rate of 28. The blood gases from today showing a pH of 7.41 with a pCO2 of 44 and pO2 of 96 and this is on FiO2 of 50%. The chest x-ray from today was noted. Chest x-ray showing diffuse breath and pulmonary infiltrates and orotracheal tube is in a good location. Blood gases was noted. The patient is currently sedated. The patient is currently on propofol which is running at 70 mg/kg per minute and fentanyl at 0.6 mcg/kg/h. The patient is receiving enteral feeding for nutritional support and the patient on vital high protein at 10 mL an hour. The patient is also Cleviprex drip for blood pressure control is currently running at 2 mg an hour. The patient is currently receiving IV Solu Medrol 60 mg every 6 hours. The patient is on Lovenox 40 mg subcu every 24 hours. The patient has received Levemir insulin 20 units twice a day along with a NovoLog 7 units every 6 hours and a scaling for both sugar control. He is also on Actos 30 mg orally on a daily basis. He has history of hypothyroidism on levo thyroxine at 75 g by mouth daily. Inflammatory markers are elevated at 1224 LDH and CRP of 6.6. Renal function is stable. Rest of the electrolytes are stable. D-dimer is at 1.92. The peak airway pressures 37 anesthetic at a pressure of 31. Or 2020, patient is being seen for a follow-up visit Covid 19 Related Pneumonia with Secondary Respiratory Failure. The Plan Is to Proceed with a PEG and Tracheostomy Tube Insertion Today. This Morning, the Patient Is Sedated and the Patient Is Currently on Propofol Running at 70 Mics for Respiratory PER Minute and the Patient Is Also on Fentanyl at 0.6 Mitral Respiratory Hour. The Patient Remains off Paralytics. This Morning, He Is an Assist-Control at the Rate of 28 with a Tidal Volume of 450 and FiO2 of 50% with a PEEP of 14. Blood Gases from Today Shows a pH of 7.43 with a PCO2 of 44 and PO2 of 53. The Chest X-Ray from Today Is Showing lower lobe active pulmonary infiltrates. Post thoracotomy. ET tube is in a good location. NG tube is in a good location. The peak airway pressure 42 anesthetic pressures around 17. The patient has excessive respiratory secretions. The plan is to proceed with a tracheostomy tube insertion of PEG tube insertion today. The patient remains on Cleviprex throughout the night and the patient was taken off the Cleviprex earlier this morning. The patient remains on IV Solu-Medrol 60 mg every 6 hours. The patient is also on Lovenox subcutaneous 40 mg every 24 hours. The blood work from today shows an LDH level of 925 with a CRP level of 7.4 and metastatic 2.46. The patient is otherwise hemodynamically stable. He has developed some edema in his extremities and the patient is currently on Lasix 40 mg IV every 24 hours and this was started yesterday. He is receiving enteral feeding for nutritional support and the patient is currently on vital high protein which is currently off pending surgical procedure. 07/11/2020, the patient is post tracheostomy tube insertion and a PEG tube insertion as the patient is going to need prolonged respiratory care. At this point in time, he is an assist-control mode with a tidal volume of 400 and a PEEP of 12 and FiO2 of 50% and a rate of 20. The chest x-ray from today shows that the tracheostomy tube is in a good location. Some limited infiltration of the lung bases. There is adequate aeration of the upper part of the lungs bilaterally. The blood gases from today shows a pH of 7.43 with a pCO2 of 44 and pO2 of 62. The patient was encountering elevated airway pressures yesterday the peak pressure was elevated and I thought this was associated related to secretions. The peak airway pressure today is 26 post tracheostomy tube i nsertion. The patient is on sedation. The patient is on propofol at 70 mcg/kg per minute and the patient is also on fentanyl and 0.2 mcg/kg/h. The patient is not receiving any paralytics for now. No feeding for now post extubation insertion. No other issues for now. He remains off Cleviprex. He is hemodynamically stable. Inflammatory markers were essentially dropping on earlier evaluation and I've also started the patient on Lasix. On today's evaluation, the LDH is 1073, slightly higher and his CRP is at 15, slightly higher, his d-dimer is at 1.77, slightly lower. As for the fluid balance, the patient is -3 L over the past 24 hours and the patient was given diuretics and the patient is receiving Lasix 40 mg IV every 24 hours. He is hemodynamically stable. The plan for today is to give the patient lower sedation and try to evaluate his mental status. The plan is to gradually wean off his propofol. 07/12/2020 the patient is tracheostomy tube insertion of PEG tube insertion. Note that immediately post tracheostomy tube insertion, the airway pressures dropped considerably. Meanwhile, the patient remains on a mechanical ventilator on today's evaluation the patient is an assist-control mode with a tidal volume of 400 and a fever of 12 with an FiO2 of 50% and a rate of 20. This is an assist-control mode, volume cycle. He remains sedated. He is receiving propofol at 70 mcg/kg per minute. Patient is also on fentanyl at 3.5 mcg/kg/h. He is on no paralytics. The blood gases showing a pH of 7.42 with a pCO2 of 47 and pO2 of 53. His current pulse ox on a monitor is in the order of 84-87%. The chest x-ray is showing bilateral pulmonary infiltrates consistent with ARDS. He has a tracheostomy tube and the position is adequate. He has also previous thoracotomy scar on the chest x-ray. He has an LDH of 1077 with a CRP of 62. The d-dimer is currently at 1.22. He remains on a prednisone 40 mg by mouth daily and this which was done yesterday as the patient was taken off IV Solu- Medrol. He is on Levemir insulin 20 units today twice a day and the patient is also on NovoLog 7 units every 6 hours and this line scattered coverage. The patient is also receiving Lasix 40 mg every 24 hours. The fluid balance has been negative and his continues to be negative of 1.1 L over the past 24 hours. He is off Cleviprex for now and his blood pressure is stable. No fever. The sputum is positive for gram-negative bacillus and the patient was having excessive amount of rest or secretions. Suggest covering the patient with antibiotics I'm going to start him on cefepime 2 g every 12 hours pending further cultures from the sputum. On today's evaluation, the patient seemed to be quite asynchronous the mechanical ventilator while being on a volume cycled. ventilator changes were done. 16 2020, the patient remains critically ill, on a mechanical ventilator , post tracheostomy tube insertion. In terms of sedation, the patient remains on a combination of propofol and fentanyl. Propofol is running at 70 mcg/kg/m visit fentanyl is 3.5 mcg/kg/h. He is off paralytics. He is on assist control mode and he was switched to pressure control mode of ventilation because of Lasix daily and double stacking. He is currently on a pressure control of 18 with a PEEP of 16 and an inspiratory time of 0.9 with a rate of 20 and FiO2 of 90%. His current blood gases showed a pH of 7.44 with a pCO2 of 34 and pO2 of 55. Chest x-ray is showing bibasilar pulmonary infiltrates slightly worse on the left. Tracheostomy tube is in a good location. His current pulse ox on the monitor is 88%. The peak static pressures are 36 and 35 respectively. His chest x-ray showing some limited infiltration left lung baseairfit noted yesterday, the patient was getting more febrile and he was becoming also hypotensive. His sputum was growing gram-negative bacillus turnstile collector to be Klebsiella. He was given a total of 2 L of IV fluid bolus and the patient was started on IV cefepime as an empiric antibiotic coverage. His pro-calcitonin level is currently at 0.26. He is currently on IV cefepime. He is also running pressors with norepinephrine infusion at 0.02 mcg/kg per minute.Fluid balance over the past 24 hours has been 2.1 L. The patient currently is quite suc cessfully mechanical ventilator. He has a fecal management system. He is receiving enteral feeding for nutritional support and is currently on vital 8. At the rate of 60 mL an hour. No abdominal distention. He is stooling. He has been on Levemir insulin and 20 units twice a day and he is also on NovoLog 7 units every 6 hours and a sliding scale coverage. 07/14/2020, the patient has been successfully taken off the propofol because of increased triglycerides within the system and the patient was switched to a combination of Precedex and fentanyl. Precedex is currently running at 2.5 mcg /kg per minute and fentanyl is running at 1 g subcu to gram per minute. The patient is currently on a pressure control mode of ventilation with a pressure control of 18, PEEP of 16, FiO2 is at 100% with a rate of 20. Blood gas today is showing a pH of 7.31 with a pCO2 of 53 and pO2 of 52. The chest x-ray is showing diffuse bilateral pulmonary airspace disease and infiltrates in the mid and lower lung carson bilaterally. The patient has a Bivona tracheostomy tube in place. Note that the airspace disease probably worse compared to yesterday. Note that the patient was acting septic yesterday. Further cultures revealed Klebsiella in his sputum and the patient is currently on IV antibiotics with IV cefepime and vancomycin. The blood cultures have been otherwise negative.. With the initiation of the antibiotics, he became hemodynamically improved. He is currently on a minimal amount of norepinephrine infusion at 0.02 mcg/kg per minute. His pro-calcitonin level was at 0.26. The patient is in a positive fluid balance. Creatinine is at 1.3. His LDH level is 1694, his CRP level is at 4, his d-dimer is at 1.48. He was febrile yesterday and currently he is afebrile. He is receiving enteral feeding for nutritional support and is currently on vital 8. At the rate of 60 mL an hour. No abdominal distention. He is stooling. He has been on Levemir insulin and 20 units twice a day and he is also on NovoLog 7 units every 6 hours and a sliding scale coverage. This morning at around 6 AM, the patient slept his cardiac rhythm into atrial fibrillation. There is a new onset A. fib. His previous echocardiogram from 2018 was within normal limits. No rapid ventricular response for now. The patient's rate is controlled. His atrial fibrillation occurred while the patient became briefly off sedation this morning and the patient is still in atrial fibrillation for now. His platelet count is down to 38 and his HIV antibodies came back negative. DIC profile is showing some mild elevation of the INR and a PT and the PTT. Fibrinogen level is at 368. Objective - Vital Signs Vital signs: Vital Signs Temp 97.7 F 07/14/20 04:00 Pulse 92 07/14/20 07:30 Resp 20 07/14/20 07:30 BP 115/58 07/13/20 06:00 Pulse Ox 89 L 07/14/20 07:30 Intake & Output 07/13/20 07/14/20 07/14/20 18:59 06:59 18:59 Intake Total 443.290 5554.231 Output Total 1095 950 Balance -220.081 379.231 Weight 136.8 kg 141.1 kg Intake: IV 276 399 Cefepime 2 gm In Sodium 100 Chloride 0.9% 100 ml @ 25 mls/hr IVPB Q12HR [facility] Rx #:[id number] Pressure bag 36 39 Sodium Chloride 0.9% 1, 240 260 000 ml @ 20 mls/hr IV . Q24H [facility] Rx#:[id number] Intake, IV Titration 324.919 406.231 Amount Dexmedetomidine/0.9% NaCl 94.62 200 (Pmx) 400 mcg In Empty Bag 1 bag @ Titrate IV . Q0M [facility] Rx#:[id number] Norepinephrine 8 mg In 30.299 106.231 Sodium Chloride 0.9% 250 ml @ 0.05 MCG/KG/MIN 13. 061 mls/hr IV .[id number] [facility] Rx#:[id number] fentaNYL (PF). 1,000 mcg 100 In Sodium Chloride 0.9% 80 ml @ Per Protocol IV . Q0M [facility] Rx#:[id number] propofoL 1,000 mg In 200.000 Empty Bag 1 bag @ Titrate IV .Q0M [facility] Rx#: [id number] Tube Feeding 274 434 Other 90 Output: Urine 1095 950 Other: Voiding Method Indwelling Catheter Indwelling Catheter ABP, PAP, CO, CI - Last Documented Arterial Blood Pressure 118/61 - Exam Sedated , currently intubated and mechanically ventilated. There is tracheostomy tube in place extra long Bivona #8. No bleeding from the stoma Head exam was generally normal. There was no scleral icterus or corneal arcus. Mucous membranes were moist. Neck was supple and without jugular venous distension, thyromegaly, or carotid bruits. Carotids were easily palpable bilaterally. There was no adenopathy. Orogastric and orotracheal tube are both in place.tracheostomy tube in place Cardiac exam revealed the PMI to be normally situated and sized. The rhythm is irregular and no extrasystoles were noted during several minutes of auscultati on. The first and second heart sounds were normal and physiologic splitting of the second heart sound was noted. There were no murmurs, rubs, clicks, or gallops. Lungs reveal bilateral crackles and diffuse scattered bilateral rhonchi. There are no wheezes. Breath sounds equal bilaterally. Abdominal exam revealed normal bowel sounds. The abdomen was soft, non-tender, and without masses, organomegaly, or appreciable enlargement of the abdominal aorta. PEG tube site is dry clean and intact Examination of the extremities revealed easily palpable radial, femoral and pedal pulses. There was no cyanosis, clubbing or edema. Examination of the skin revealed no evidence of significant rashes, suspicious appearing nevi or other concerning lesions. Neurologic examination could not be assessed as the patient's is sedated. - Labs CBC & Chem 7: 07/14/20 04:20 07/14/20 04:20 Labs: Abnormal Lab Results - Last 24 Hours (Table) 07/13/20 07/13/20 07/13/20 Range/Units 04:15 04:15 04:15 WBC (3.8-10.6) k/uL RBC (4.30-5.90) m/uL Hgb 11.2 L (13.0-17.5) gm/dL Hct (39.0-53.0) % Plt Count 62 L (150-450) k/uL Lymphocytes # 0.0 L (1.0-4.8) k/uL Fibrinogen (200-500) mg/dL D-Dimer (<0.60) mg/L FEU ABG pH (7.35-7.45) ABG pCO2 (35-45) mmHg ABG pO2 (83-108) mmHg ABG HCO3 (21-25) mmol/L ABG Total CO2 (19-24) mmol/L ABG O2 Saturation (94-97) % Potassium 3.3 L (3.5-5.1) mmol/L Chloride (98-107) mmol/L BUN 65 H (9-20) mg/dL Creatinine 1.43 H (0.66-1.25) mg/dL Glucose 157 H (74-99) mg/dL POC Glucose (mg/dL) (75-99) mg/dL Calcium 7.3 L (8.4-10.2) mg/dL Magnesium 2.4 H (1.6-2.3) mg/dL Ferritin 2237.1 H (22.0-322.0) ng/mL AST 75 H (17-59) U/L Lactate Dehydrogenase 1564 H (313-618) U/L Creatine Kinase 608 H (55-170) U/L C-Reactive Protein 220.6 H (<10.0) mg/L Total Protein 3.9 L (6.3-8.2) g/dL Albumin 2.0 L (3.5-5.0) g/dL Triglycerides 1833 H (<150) mg/dL 07/13/20 07/13/20 07/14/20 Range/Units 12:25 17:24 00:45 WBC (3.8-10.6) k/uL RBC (4.30-5.90) m/uL Hgb (13.0-17.5) gm/dL Hct (39.0-53.0) % Plt Count (150-450) k/uL Lymphocytes # (1.0-4.8) k/uL Fibrinogen (200-500) mg/dL D-Dimer (<0.60) mg/L FEU ABG pH (7.35-7.45) ABG pCO2 (35-45) mmHg ABG pO2 (83-108) mmHg ABG HCO3 (21-25) mmol/L ABG Total CO2 (19-24) mmol/L ABG O2 Saturation (94-97) % Potassium (3.5-5.1) mmol/L Chloride (98-107) mmol/L BUN (9-20) mg/dL Creatinine (0.66-1.25) mg/dL Glucose (74-99) mg/dL POC Glucose (mg/dL) 186 H 197 H 202 H (75-99) mg/dL Calcium (8.4-10.2) mg/dL Magnesium (1.6-2.3) mg/dL Ferritin (22.0-322.0) ng/mL AST (17-59) U/L Lactate Dehydrogenase (313-618) U/L Creatine Kinase (55-170) U/L C-Reactive Protein (<10.0) mg/L Total Protein (6.3-8.2) g/dL Albumin (3.5-5.0) g/dL Triglycerides (<150) mg/dL 07/14/20 07/14/20 07/14/20 Range/Units 04:20 04:20 04:20 WBC 3.0 L (3.8-10.6) k/uL RBC 3.57 L (4.30-5.90) m/uL Hgb 10.8 L (13.0-17.5) gm/dL Hct 31.9 L (39.0-53.0) % Plt Count 38 L (150-450) k/uL Lymphocytes # 0.2 L (1.0-4.8) k/uL Fibrinogen 607 H (200-500) mg/dL D-Dimer 1.48 H (<0.60) mg/L FEU ABG pH (7.35-7.45) ABG pCO2 (35-45) mmHg ABG pO2 (83-108) mmHg ABG HCO3 (21-25) mmol/L ABG Total CO2 (19-24) mmol/L ABG O2 Saturation (94-97) % Potassium 2.9 L (3.5-5.1) mmol/L Chloride 112 H (98-107) mmol/L BUN 62 H (9-20) mg/dL Creatinine 1.37 H (0.66-1.25) mg/dL Glucose 137 H (74-99) mg/dL POC Glucose (mg/dL) (75-99) mg/dL Calcium 7.6 L (8.4-10.2) mg/dL Magnesium 2.6 H (1.6-2.3) mg/dL Ferritin (22.0-322.0) ng/mL AST 76 H (17-59) U/L Lactate Dehydrogenase 1694 H (313-618) U/L Creatine Kinase 578 H (55-170) U/L C-Reactive Protein (<10.0) mg/L Total Protein 4.0 L (6.3-8.2) g/dL Albumin 1.9 L (3.5-5.0) g/dL Triglycerides (<150) mg/dL 07/14/20 07/14/20 Range/Units 04:43 05:49 WBC (3.8-10.6) k/uL RBC (4.30-5.90) m/uL Hgb (13.0-17.5) gm/dL Hct (39.0-53.0) % Plt Count (150-450) k/uL Lymphocytes # (1.0-4.8) k/uL Fibrinogen (200-500) mg/dL D-Dimer (<0.60) mg/L FEU ABG pH 7.31 L (7.35-7.45) ABG pCO2 53 H (35-45) mmHg ABG pO2 52 L* (83-108) mmHg ABG HCO3 26 H (21-25) mmol/L ABG Total CO2 28 H (19-24) mmol/L ABG O2 Saturation 81.7 L (94-97) % Potassium (3.5-5.1) mmol/L Chloride (98-107) mmol/L BUN (9-20) mg/dL Creatinine (0.66-1.25) mg/dL Glucose (74-99) mg/dL POC Glucose (mg/dL) 159 H (75-99) mg/dL Calcium (8.4-10.2) mg/dL Magnesium (1.6-2.3) mg/dL Ferritin (22.0-322.0) ng/mL AST (17-59) U/L Lactate Dehydrogenase (313-618) U/L Creatine Kinase (55-170) U/L C-Reactive Protein (<10.0) mg/L Total Protein (6.3-8.2) g/dL Albumin (3.5-5.0) g/dL Triglycerides (<150) mg/dL Microbiology - Last 24 Hours (Table) 07/12/20 17:39 Blood Culture - Preliminary Blood No Growth after 24 hours Assessment and Plan Plan: 1 ARDS with secondary acute hypoxemic respiratory failure secondary to COVID 19 pneumonia, suspected superinfection with Klebsiella and the patient is currently on IV cefepime. In terms of his oxygenation, the patient is still doing poorly on a pressure control mode of ventilator. His post tracheostomy tube insertion. In terms of his COVID-19 related pneumonia, patient has received both convalescent plasma and Tocilizumab. Meanwhile, the patient is post tracheost ricardo tube insertion and tracheostomy was done on 07/10/2020. The oxygenation remains borderline and I do suspect a superinfection on top of his COVID-19 related pneumonia. Consider a hospital-acquired healthcare acquired pneumonia with Klebsiella. 2 History of chronic bronchial asthma. 3 left lower lobe pneumonia suspected and the patient has klebsiella in the sputum. There have a component of sepsis along with evolving DIC with ongoing thrombocytopenia. The patient is currently on IV cefepime. The patient is also on low-dose norepinephrine infusion. 4 History of CAD, status post bypass grafting. 5 History of diabetes mellitus. 6 Hyperlipidemia by history. 7 Hypertension. 8 Hepatitis C. 9 obesity, BMI 44 10 History of hypothyroidism. 11 History of osteoarthritis. 12 thrombocytopenia with persistent drop in his platelet count down to 38. off Lovenox for now. check HIT antibodies 13 atrial fibrillation with a controlled rate, unable to anticoagulate this patient because of his underlying thrombocytopenia. Plan With a combination of Precedex and fentanyl No sedation holiday for today The patient is currently off paralytics Continue the pressure control mode of ventilator Utilize norepinephrine infusion for blood pressure control The patient is covered with antibiotics and the patient will be continued on IV cefepime 2 g every 12 hours Discontinue vancomycin Discontinue aspirin Discontinue Lipitor Discontinue fenofibrate Continue enteral feeding for nutritional support, post PEG tube insertion Monitor inflammatory markers Adjusted tube feed rate now that the patient is off propofol Continue Levemir for blood sugar control, adjust the dose to 26 units twice a day The patient adequate blood sugar control Continue the rest of the supportive care Critically care evaluation more than 30 minutes Time with Patient: Greater than 30
[2020-07-14] MEDS: CEFEPIME 2 GM in SODIUM CHLORIDE 0.9% 100 ML IVPB SCH ×2 (08:20→20:08)
[2020-07-14] MEDS: ASCORBIC ACID 500 MG TAB PO SCH (08:20)
[2020-07-14] MEDS: CHLORHEXIDINE GLUCONATE 15 ML CUP MUCOUS MEM SCH ×2 (08:20→20:08)
[2020-07-14] MEDS: CHOLECALCIFEROL 25 MCG (1000 IU) TABLET PO SCH (08:20)
[2020-07-14] MEDS: polyethylene glycoL 3350 17 GM POWD.PACK PO SCH (08:21)
[2020-07-14] MEDS: ZINC SULFATE 220 MG CAP PO SCH (08:21)
[2020-07-14] MEDS: SENNOSIDES-DOCUSATE SODIUM 1 EACH TAB PO SCH (08:21)
[2020-07-14] MEDS: PIOGLITAZONE 30 MG TAB PO SCH (08:22)
[2020-07-14] MEDS: PANTOPRAZOLE 40 MG/10 ML VIAL IVP SCH (08:22)
[2020-07-14] MEDS: predniSONE 20 MG TAB PO SCH (08:24)
[2020-07-14] MEDS: METOPROLOL TARTRATE 25 MG TAB PO SCH ×2 (08:25→20:08)
[2020-07-14] MEDS: MULTIVITAMINS, THERA 1 EACH TAB PO SCH (08:25)
--- NOTE | 2020-07-14 09:33 | XR ---
EXAMINATION TYPE: XR chest 1V portable DATE OF EXAM: 07/14/2020 CLINICAL HISTORY: Difficulty breathing progress study. TECHNIQUE: Single AP portable upright view of the chest is obtained. COMPARISON: Chest x-ray from one day earlier and older studies FINDINGS: Stable tracheostomy tube and left subclavian central venous catheter. Persistent low lung volumes and cardiomegaly with worsening mid to lower lung opacities bilaterally. More confluent appearance in the bases with new silhouetting of the left hemidiaphragm noted. Osseous structures are intact. IMPRESSION: Diminished inspiration with worsening mid to lower lungs bilateral opacities consistent w ith covid-19 infection progression.
[2020-07-14] MEDS: ALBUTEROL HFA INHALER INHALATION SCH ×4 (09:44→21:07)
[2020-07-14 12:06] LABS: Ferritin 2083.5 ng/mL (22.0-322.0)
[2020-07-14 12:14] LABS: Glucose,Whole Blood 130 mg/dL (75-99)
[2020-07-14] MEDS: fentaNYL (PF). 1,000 MCG in SODIUM CHLORIDE 0.9% 80 ML IV SCH ×3 (13:11→23:30)
[2020-07-14 14:03] LABS: ABG Base Excess -1.3 mmol/L; ABG HCO3 25 mmol/L (21-25); ABG Oxygen Saturation 76.9 % (94-97); ABG PCO2 51 mmHg (35-45); ABG TCO2 27 mmol/L (19-24); Allen Test Performed? Yes
[2020-07-14 14:06] LABS: ABG PO2 47 mmHg (83-108)
[2020-07-14] MEDS: NOREPINEPHRINE 8 MG in SODIUM CHLORIDE 0.9% 250 ML IV SCH (14:14)
[2020-07-14] MEDS ORDERED: IVERMECTIN 3 MG TABLET PEG/G-TUBE STA (14:33)
--- NOTE | 2020-07-14 17:02 | P.PN ---
Subjective Progress Note Date: 07/14/20 HISTORY OF PRESENT ILLNESS This is a 80-year-old male patient of Dr. 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 Patient states that he has had symptoms for 2 weeks which include body aches, shortness of breath coming foggy thinking. He denies any nausea, vomiting or diarrhea. He states he has had sputum production. He denies any lower extremity edema. Patient does not have home oxygen. Patient presented to [facility] emergency center for evaluation. Chest x-ray reveals bibasilar patchy opacities consistent with multifocal infection. No pleural effusions or pneumothorax. Temperature 100.1, heart rate 75, respiratory rate 24, blood pressure 125/63 and pulse ox 83% on room air. EKG was a sinus rhythm at 66 bpm. CBC was unremarkable except for lymphocytosis of 0.5. INR 1.0. Sodium 135, BUN 28 creatinine 1.68. Blood sugar 202. Lactic acid 1.6. Liver function tests were normal. LDH 730. C- reactive protein and a 5.9. ProBNP 522. 4/2: Patient is seen today on the observation unit as an overflow. Pulse ox is 84% on 15 L hyponasal cannula and nonrebreather. Patient seems to have more shortness of breath today and also complains of wheezing. No significant cough production. No fever or chills. No chest pain. WBC 11.2, hemoglobin 14.8, platelet count 233. Repeat chest x-ray reveals findings consistent with pneumonia. Pro-calcitonin 0.12. Blood sugars running in the 200s. Patient to be moved to the intensive care unit. 06/30: Patient declined significantly in the afternoon yesterday ended up on mechanical ventilation, he been sedated currently his marker are still quite bit high. Patient still required high demand O2 along with high PEEP of 15-20 to keep his pulse ox at the margin of 90 percentile. His blood sugars mildly elevated and still been managed on insulin, white blood cell is up to 13,000 today, his blood gas shows pO2 of 653 only. CO2 of 27 and pH of 7.31 creatinine has slightly improved since yesterday he C-reactive protein is up to 144 and LDH of 748. 4/4: Patient is still on mechanical ventilation is FiO2 is down to 70% still on PEEP of 18 I had long discussion with the and update her on with outpatient patient's condition still guarded this point his prognosis still not good but he has slight improvement compared to yesterday, his kidney function has improved slightly bit compared to yesterday as well. 07/02: Patient remains in the ICU. Patient is intubated and on mechanical ventilation with tidall volume 450,, FiO2 60%, PEEP of 18 which is improved from yesterday. He is pulse oxing 92-95%. He has been afebrile, heart rate in the 40s, respiratory rate 28, blood pressure 148/67. ekg monitor is sinus bradycardia. Repeat lab work reveals WBC 12.4, hemoglobin 13.1, platelet count 266. Sed rate 33. D-dimer 0.45. Sodium 140, potassium 4.7, chloride 110, CO2 24, BUN 44 and creatinine 0.25. Blood sugars running between 197 and 248. Ferritin 629.9. LDH 704. He is currently nothing by mouth. 07/03: Patient has been afebrile, heart rate 61, blood pressure 177/104, pulse ox 97%. Patient remains intubated and on mechanical ventilation with tidal volume 450, FiO2 60, PEEP of 18. Repeat blood work reveals WBC 15.9, hemoglobin 14.9, platelet count 341. Lymphocytes 0.5. Sodium 140, potassium 4.9, chloride 109, CO2 22, BUN 44 and creatinine 1. LDH 951. Liver function tests normal. Blood sugars running between 221 and 299. Levemir will be increased to 20 units twice daily and scheduled NovoLog will be increased to 7 units every 6 hours along with NovoLog scale continued. Tube feedings are at goal. Repeat chest x-ray reveals diffuse pleural parenchymal changes correlate for interstitial pneumonia is stable. Dr. Beverly has stopped Nimbex and Cleviprex. 07/04: Heart rate has been running in the 40s and Lopressor decreased from 50 mg twice daily to 25 mg twice daily and parameters to hold if heart rate is less than 55. Blood pressure is still been an issue and patient was weaned off Alan viprex. She remains intubated and on mechanical ventilation with tidal volume 520, FiO2 60, PEEP of 18. Blood sugar was still running high until this morning, this morning's blood sugar 194. Adjustments were made to his insulin yesterday and tube feeding dose decreased today. Will hold on making any further changes with insulins. Repeat blood work reveals sed rate of 90, d- dimer 0.73. Sodium 141, potassium 4.6, chloride 112, CO2 25, BUN 43, creatinine 1.10. Ferritin 683.9. LDH 745. Repeat chest x-ray reveals diffuse bilateral airspace disease stable correlate for diffuse pneumonia, ARDS versus pulmonary edema. 07/05: Patient remains intubated and on mechanical ventilation with tidal volume 450, FiO2 60 and PEEP of 20. Patient has been afebrile, heart rate in the 40s, respiratory rate 28, blood pressure 134/60, pulse ox 98%. Lopressor is not been given at a lower rate due to bradycardia. Repeat blood work reveals WBC 13.6, hemoglobin 13.6, platelet count 292. Blood sugars running between 148 and 179. 07/06: Patient remains in the intensive care unit intubated and on mechanical ventilation with tidal volume 450, FiO2 60, PEEP of 20. He is on propofol and fentanyl. He is also currently on Cleviprex. Repeat chest x-ray reveals diffuse interstitial infiltrates are stable. WBC 14.2, hemoglobin 14.2, platelet count 292. Creatinine 0.97 and BUN 48. Blood sugars running between 165 an 187. Patient may require PEG tube and trach. 07/07: Repeat chest x-ray reveals mild improving nonspecific infiltrate can be compatible with atypical pneumonia. He remains in the intensive care unit intubated and on mechanical ventilation with tidal volume 450, FiO2 decreased to 50% and PEEP of 16. He is still on Cleviprex. He remains on sedation. He is tolerating tube feedings. Repeat blood work reveals WBC 9.1, hemoglobin 12.3, platelet count 244. D-dimer 1.35. BUN 41 creatinine 0.86. Blood sugars running between 146 and 168. C-reactive protein 7.9. CK 52. 07/08: Patient remains in the intensive care unit. He is on propofol and Ventolin. He is on mechanical ventilation with tidal volume 450, FiO2 50%, PEEP down to 16. Tube feedings are 10 MLS per hour at goal. POO 97%, HR improved and patient received lopressor last night and this morning. He as been afebrile. BP 148/72 and on Cleviprex. WBC 14.3. D-dimer 1.92. BUN 48 and creatinine 0.93. Calcium 8.2. Ferritin 548.2. Liver function tests are normal. LDH 1224. CK 65. C-reactive protein 6.6. 07/09: Patient remains intubated and on mechanical ventilation with tidal volume 450, FiO2 50 and PEEP of 16. Amlodipine was increased to [address] Dumont for blood pressure control. Patient remains on Cleviprex. Patient is also on fentanyl and propofol. Patient is also on tube feedings. Patient is on IV Lasix and IV Solu-Medrol. Proceeding has been consulted for PEG and trach placement. Repeat chest x-ray reveals diffuse bilateral predominantly interstitial infiltrates with basilar consolidative infiltrate stable. Patient has been afebrile, heart rate 52, blood pressure 149/74, pulse ox 89%. Repeat blood work reveals WBC 12.3, hemoglobin 13.7. D-dimer 2. Sodium 136, potassium 4.3, chloride 110, CO2 22, BUN 45 and creatinine 0.85. Sugars are running 136- 152. Ferritin 518.4. LDH 949, CK 52. C-reactive protein 7.3. 07/10: She remains intubated and on mechanical ventilation with tidal volume 380, FiO2 50, PEEP of 14 which is down from yesterday. Patient is scheduled for PEG tube and trach insertion today. He has been afebrile, heart rate in the 50s, blood pressure 129/69, pulse ox 93%. Repeat blood work reveals WBC 11.3, hemoglobin 14.6. Electrolytes normal. Creatinine 0.81. Blood sugars are running between 100 2244. LDH 925, CK 52, C-reactive protein 7.4. 07/11: Patient underwent trach and PEG tube placement yesterday with Dr. Rodríguez. He is currently on vent settings with tidal volume 650, FiO2 of 50%, PEEP of 12. Patient has been afebrile, heart rate in the 40s and 50s, blood pressure 105/54, pulse ox 87%. Repeat blood work reveals platelet count 149. Electrolytes normal, BUN 47 creatinine 0.85. Blood sugars running between 124 and 138. LDH 1073, CK 81, C-reactive protein 15.1. D-dimer 1.77. Prognosis remains guarded. 07/12: Patient remains in the intensive care unit on mechanical ventilation with pulse ox of 85% with tidal volume 700, FiO2 80 and PEEP of 14. Repeat blood work reveals WBC 5.8, hemoglobin 13.8, platelet count 104. D-dimer 1.22. Sodium 138, potassium 3.3, chloride 106, CO2 27, BUN 56 and creatinine 1.17. LDH 1077. C-reactive protein 62.2. Repeat chest x-ray reveals improvement in lung volume, aeration. Patient has been tolerating tube feedings which were started yesterday. No residuals. Patient has small amount of bleeding at the tracheostomy site. Patient is on IV antibiotics in form of cefepime. Sputum culture is in progress. 07/13: Patient remains on mechanical ventilation. His pulse ox is 90% on FiO2 of 90, pressure control of 18, PEEP of 16. Patient has been afebrile, heart rate 60s, blood pressure 124/62. Blood pressure has been running low and he is status post 2 L of IV fluid. Patient is on a low-dose of levo fed. EP blood work reveals WBC 5.5, hemoglobin 11.2, platelet count 62. D-dimer 1.35. Potassium 3.3 and was replaced. BUN 65 and creatinine 1.43. Blood sugars 121- 186. LDH 1564, CK 680, C-reactive protein 220. Repeat chest x-ray reveals bilateral interstitial and alveolar infiltrate stable. Sputum culture is positive for Klebsiella and patient is on cefepime. Patient is tolerating tube feedings. Fecal management system is in place. Patient had more bleeding from his trach site during the night. 07/14 patient remains in the ICU on mechanical ventilation on pressure control would want to treat her with pressure control of 18 PEEP 16 FiO2 100% with a respiratory rate of 20. Patient is currently on Precedex and fentanyl for sedation. No sedation tomorrow today. Patient continues to require minimal amount of levo fed. Patient was desaturating to 90% on 100% FiO2 with the pressure of 96/59. Data blood gas obtained during suggest a pH of 7.3 pCO2 51 a nd pO2 52 bicarb 26 lapses as a potassium of 2.9 chloride 112 creatinine 1.37 glucose 137 calcium 7.6 increased inflammation marker with LDH at 1694 increased from prior,'s true calcitonin 0.26 triglycerides 04/06/1931 LDH 1694. D-dimer is elevated at 1.48. Platelet has decreased to 38. Fibrinogen is normal at 368 APTT 40.5 INR 1.3.e Patient has been afebrile for 24 hours. Vancomycin is discontinued patient continues to be on cefepime 2 g every 12 hours for Klebsiella Pneumonia. Aspirin, Lipitor and fenofibrate discontinued. Enteral feeding continued for nutrition. Objective - Vital Signs Vital signs: Vital Signs Temp 98.7 F 07/14/20 16:00 Pulse 88 07/14/20 16:00 Resp 12 07/14/20 16:00 BP 115/58 07/13/20 06:00 Pulse Ox 90 L 07/14/20 16:00 Intake & Output 07/13/20 07/14/20 07/14/20 18:59 06:59 18:59 Intake Total 461.549 7735.231 723 Output Total 1095 950 725 Balance -220.081 479.231 -2 Weight 136.8 kg 141.1 kg Intake: IV 276 399 207 Cefepime 2 gm In Sodium 100 Chloride 0.9% 100 ml @ 25 mls/hr IVPB Q12HR NAE[facility] Rx #:[id number] Pressure bag 36 39 27 Sodium Chloride 0.9% 1, 240 260 180 000 ml @ 20 mls/hr IV . Q24H NAE[facility] Rx#:[id number] Intake, IV Titration 324.919 506.231 0 Amount Dexmedetomidine/0.9% NaCl 94.62 200 (Pmx) 400 mcg In Empty Bag 1 bag @ Titrate IV . Q0M NAE[facility] Rx#:[id number] Norepinephrine 8 mg In 30.299 106.231 0 Sodium Chloride 0.9% 250 ml @ 0.05 MCG/KG/MIN 13. 061 mls/hr IV .[id number] NAEEM Rx#:[id number] fentaNYL (PF). 1,000 mcg 200 In Sodium Chloride 0.9% 80 ml @ Per Protocol IV . Q0M NAEEM Rx#:[id number] propofoL 1,000 mg In 200.000 Empty Bag 1 bag @ Titrate IV .Q0M NAEEM Rx#: [id number] Tube Feeding 274 434 456 Other 90 60 Output: Urine 1095 950 725 Other: Voiding Method Indwelling Catheter Indwelling Catheter Indwelling Catheter ABP, PAP, CO, CI - Last Documented Arterial Blood Pressure 96/59 - Exam PHYSICAL EXAMINATION Defer to pulmonary medicine due to intubation and active Covid status. Gen: This is a morbidly obese 80-year-old male. He is resting in ICU bed with trachea, mechanical ventilation. HEENT: Head is atraumatic, normocephalic. LUNGS: No intercostal retractions. NEUROLOGICAL: Patient is sedated. - Labs CBC & Chem 7: 07/14/20 04:20 07/14/20 04:20 Labs: Abnormal Lab Results - Last 24 Hours (Table) 07/13/20 07/14/20 07/14/20 Range/Units 17:24 00:45 04:20 WBC 3.0 L (3.8-10.6) k/uL RBC 3.57 L (4.30-5.90) m/uL Hgb 10.8 L (13.0-17.5) gm/dL Hct 31.9 L (39.0-53.0) % Plt Count 38 L (150-450) k/uL Lymphocytes # 0.2 L (1.0-4.8) k/uL Fibrinogen (200-500) mg/dL D-Dimer (<0.60) mg/L FEU ABG pH (7.35-7.45) ABG pCO2 (35-45) mmHg ABG pO2 (83-108) mmHg ABG HCO3 (21-25) mmol/L ABG Total CO2 (19-24) mmol/L ABG O2 Saturation (94-97) % Potassium (3.5-5.1) mmol/L Chloride (98-107) mmol/L BUN (9-20) mg/dL Creatinine (0.66-1.25) mg/dL Glucose (74-99) mg/dL POC Glucose (mg/dL) 197 H 202 H (75-99) mg/dL Calcium (8.4-10.2) mg/dL Magnesium (1.6-2.3) mg/dL Ferritin (22.0-322.0) ng/mL AST (17-59) U/L Lactate Dehydrogenase (313-618) U/L Creatine Kinase (55-170) U/L C-Reactive Protein (<1.0) mg/dL Total Protein (6.3-8.2) g/dL Albumin (3.5-5.0) g/dL 07/14/20 07/14/20 07/14/20 Range/Units 04:20 04:20 04:43 WBC (3.8-10.6) k/uL RBC (4.30-5.90) m/uL Hgb (13.0-17.5) gm/dL Hct (39.0-53.0) % Plt Count (150-450) k/uL Lymphocytes # (1.0-4.8) k/uL Fibrinogen 607 H (200-500) mg/dL D-Dimer 1.48 H (<0.60) mg/L FEU ABG pH 7.31 L (7.35-7.45) ABG pCO2 53 H (35-45) mmHg ABG pO2 52 L* (83-108) mmHg ABG HCO3 26 H (21-25) mmol/L ABG Total CO2 28 H (19-24) mmol/L ABG O2 Saturation 81.7 L (94-97) % Potassium 2.9 L (3.5-5.1) mmol/L Chloride 112 H (98-107) mmol/L BUN 62 H (9-20) mg/dL Creatinine 1.37 H (0.66-1.25) mg/dL Glucose 137 H (74-99) mg/dL POC Glucose (mg/dL) (75-99) mg/dL Calcium 7.6 L (8.4-10.2) mg/dL Magnesium 2.6 H (1.6-2.3) mg/dL Ferritin 2083.5 H (22.0-322.0) ng/mL AST 76 H (17-59) U/L Lactate Dehydrogenase 1694 H (313-618) U/L Creatine Kinase 578 H (55-170) U/L C-Reactive Protein 34.4 H (<1.0) mg/dL Total Protein 4.0 L (6.3-8.2) g/dL Albumin 1.9 L (3.5-5.0) g/dL 07/14/20 07/14/20 07/14/20 Range/Units 05:49 12:12 13:56 WBC (3.8-10.6) k/uL RBC (4.30-5.90) m/uL Hgb (13.0-17.5) gm/dL Hct (39.0-53.0) % Plt Count (150-450) k/uL Lymphocytes # (1.0-4.8) k/uL Fibrinogen (200-500) mg/dL D-Dimer (<0.60) mg/L FEU ABG pH 7.30 L (7.35-7.45) ABG pCO2 51 H (35-45) mmHg ABG pO2 47 L* (83-108) mmHg ABG HCO3 (21-25) mmol/L ABG Total CO2 27 H (19-24) mmol/L ABG O2 Saturation 76.9 L (94-97) % Potassium (3.5-5.1) mmol/L Chloride (98-107) mmol/L BUN (9-20) mg/dL Creatinine (0.66-1.25) mg/dL Glucose (74-99) mg/dL POC Glucose (mg/dL) 159 H 130 H (75-99) mg/dL Calcium (8.4-10.2) mg/dL Magnesium (1.6-2.3) mg/dL Ferritin (22.0-322.0) ng/mL AST (17-59) U/L Lactate Dehydrogenase (313-618) U/L Creatine Kinase (55-170) U/L C-Reactive Protein (<1.0) mg/dL Total Protein (6.3-8.2) g/dL Albumin (3.5-5.0) g/dL Microbiology - Last 24 Hours (Table) 07/12/20 17:39 Blood Culture - Preliminary Blood No Growth after 24 hours Assessment and Plan Plan: ASSESSMENT AND PLAN 1. Acute hypoxic respiratory failure secondary to COVID19 and Klebsiella hospital-acquired Pneumonia. Patient is status post Tocilizumab and convalescent plasma. Continue mechanical ventilation. Solu-Medrol discontinued, on prednisone 40 mg continue, vitamins C, vitamin D, zinc, Symb icort twice daily, continue vent management patient is managed by ice bag assembler. Consult with Dr. Rodríguez status posttrach and PEG tube insertion. Patient has been started on cefepime. It, icing discontinued 2. Possible secondary Klebsiella pneumonia. Patient is on cefepime. 3. Acute kidney injury with chronic kidney disease stage III. 3. History of coronary artery disease status post CABG, stable. Hold aspirin and Lipitor, Lopressor 25 mg twice daily. 4. Diabetes mellitus type 2, uncontrolled with hyperglycemia secondary to steroids. Continue Actos 30 mg daily, NovoLog scale before meals and at bedtime, continue Levemir 20 units twice daily, NovoLog scale every 6 hours. No change in medications. 5. Hypertension. Continue Lopressor with parameters for bradycardia, Norvasc 10 mg daily. Continue Cleviprex. 6. Hyperlipidemia. Hold atorvastatin and fenofibrate 7. Hypothyroidism. Continue levothyroxine 75 g daily. 8. Bradycardia. Lopressor 25 mg twice daily . 9. Severe protein calorie malnutrition secondary to extended intubation. Patient is status post PEG tube insertion. Continue tube feedings. 10. Thrombocytopenia secondary to Covid. Lovenox discontinued. Hit antibodies ordered. Bleeding from trach monitored. 11. GI prophylaxis. Protonix. 12. DVT prophylaxis. 13 new-onset atrial fibrillation rate controlled on metoprolol. Anticoagulation held due to bleeding Prognosis is guarded.
[2020-07-14 18:04] LABS: Glucose,Whole Blood 147 mg/dL (75-99)
[2020-07-14] MEDS: SODIUM CHLORIDE 0.9% 1,000 ML IV SCH (19:52)
[2020-07-15] MEDS: INSULIN ASPART (NovoLOG) 100 UNIT/ML VIAL SQ SCH ×4 (00:30→17:15)
[2020-07-15 00:55] LABS: Glucose,Whole Blood 155 mg/dL (75-99)
[2020-07-15] MEDS: NOREPINEPHRINE 8 MG in SODIUM CHLORIDE 0.9% 250 ML IV SCH (03:38)
[2020-07-15] MEDS: fentaNYL (PF). 1,000 MCG in SODIUM CHLORIDE 0.9% 80 ML IV SCH ×4 (03:40→19:42)
[2020-07-15 05:01] LABS: HCT 31.2 % (39.0-53.0); HGB 10.8 gm/dL (13.0-17.5); MCH 30.8 pg (25.0-35.0); MCHC 34.5 g/dL (31.0-37.0); MCV 89.1 fL (80.0-100.0); Mean Platelet Volume 11.9; RDW 15.6 % (11.5-15.5); WBC 2.3 k/uL (3.8-10.6)
[2020-07-15 05:23] LABS: Albumin 2.1 g/dL (3.5-5.0); Magnesium 2.6 mg/dL (1.6-2.3); Potassium 4.2 mmol/L (3.5-5.1); Total Bilirubin 0.7 mg/dL (0.2-1.3); Total Protein 4.4 g/dL (6.3-8.2)
[2020-07-15 05:55] LABS: ABG Base Excess -0.6 mmol/L; ABG HCO3 25 mmol/L (21-25); ABG Oxygen Saturation 88.4 % (94-97); ABG PCO2 44 mmHg (35-45); ABG PH 7.36 (7.35-7.45); ABG TCO2 26 mmol/L (19-24); Allen Test Performed? Yes
[2020-07-15 05:58] LABS: C Reactive Protein 22.8 mg/dL (<1.0)
[2020-07-15 05:59] LABS: ABG PO2 57 mmHg (83-108)
--- NOTE | 2020-07-15 06:00 | XR ---
EXAMINATION TYPE: XR chest 1V portable DATE OF EXAM: 07/15/2020 CLINICAL HISTORY: Difficulty breathing and covid pneumonia progress study. TECHNIQUE: Single AP portable semiupright view of the chest is obtained. COMPARISON: Chest x-ray from one day earlier and older studies. FINDINGS: Stable tracheostomy tube and left subclavian central venous catheter. Overlying sternal wires and mediastinal clips are redemonstrated. Persistent low lung volumes and car diomegaly with persistent mid to lower lung multifocal and confluent opacities bilaterally. Cardiac s ilhouette size stable and mildly enlarged. Osseous structures are intact. IMPRESSION: Bilateral mid to lower lungs multifocal and confluent opacities consistent with covid-19 infection. No significant change from one day earlier.
[2020-07-15 06:37] LABS: Glucose,Whole Blood 143 mg/dL (75-99)
[2020-07-15] MEDS: INSULIN DETEMIR (LEVEMIR) 100 UNIT/ML SYR SQ SCH ×2 (07:02→20:30)
[2020-07-15] MEDS: LEVOTHYROXINE 75 MCG TAB PO SCH (07:02)
[2020-07-15] MEDS: DEXMEDETOMIDINE/0.9% NACL(PMX) 400 MCG in EMPTY BAG 1 BAG IV SCH ×4 (07:44→21:00)
--- NOTE | 2020-07-15 08:15 | P.PN ---
Subjective Progress Note Date: 07/15/20 On 07/09/2020, I'm seeing this 80-year-old male patient in the intensive care unit and the patient is currently intubated on a mechanical ventilated because of a COVID 19 related pneumonia. The patient originally presented with hypoxic respiratory failure and his oxidation progressively got worse and the patient had to be intubated and placed on a mechanical ventilator. He is known to have chronic bronchial asthma, CAD, diabetes mellitus, hypertension, hyperlipidemia, osteoarthritis and hepatitis C. The patient is also has undergone previous coronary artery bypass surgery. The patient got intubated on 07/04/2020 and the patient has been intubated since. The patient is currently on assist control mode with a tidal volume of 450 and FiO2 of 50% with a PEEP of 16 and the rate of 28. The blood gases from today showing a pH of 7.41 with a pCO2 of 44 and pO2 of 96 and this is on FiO2 of 50%. The chest x-ray from today was noted. Chest x-ray showing diffuse breath and pulmonary infiltrates and orotracheal tube is in a good location. Blood gases was noted. The patient is currently sedated. The patient is currently on propofol which is running at 70 mg/kg per minute and fentanyl at 0.6 mcg/kg/h. The patient is receiving enteral feeding for nutritional support and the patient on vital high protein at 10 mL an hour. The patient is also Cleviprex drip for blood pressure control is currently running at 2 mg an hour. The patient is currently receiving IV Solu Medrol 60 mg every 6 hours. The patient is on Lovenox 40 mg subcu every 24 hours. The patient has received Levemir insulin 20 units twice a day along with a NovoLog 7 units every 6 hours and a scaling for both sugar control. He is also on Actos 30 mg orally on a daily basis. He has history of hypothyroidism on levo thyroxine at 75 g by mouth daily. Inflammatory markers are elevated at 1224 LDH and CRP of 6.6. Renal function is stable. Rest of the electrolytes are stable. D-dimer is at 1.92. The peak airway pressures 37 anesthetic at a pressure of 31. Or 2020, patient is being seen for a follow-up visit Covid 19 Related Pneumonia with Secondary Respiratory Failure. The Plan Is to Proceed with a PEG and Tracheostomy Tube Insertion Today. This Morning, the Patient Is Sedated and the Patient Is Currently on Propofol Running at 70 Mics for Respiratory PER Minute and the Patient Is Also on Fentanyl at 0.6 Mitral Respiratory Hour. The Patient Remains off Paralytics. This Morning, He Is an Assist-Control at the Rate of 28 with a Tidal Volume of 450 and FiO2 of 50% with a PEEP of 14. Blood Gases from Today Shows a pH of 7.43 with a PCO2 of 44 and PO2 of 53. The Chest X-Ray from Today Is Showing lower lobe active pulmonary infiltrates. Post thoracotomy. ET tube is in a good location. NG tube is in a good location. The peak airway pressure 42 anesthetic pressures around 17. The patient has excessive respiratory secretions. The plan is to proceed with a tracheostomy tube insertion of PEG tube insertion today. The patient remains on Cleviprex throughout the night and the patient was taken off the Cleviprex earlier this morning. The patient remains on IV Solu-Medrol 60 mg every 6 hours. The patient is also on Lovenox subcutaneous 40 mg every 24 hours. The blood work from today shows an LDH level of 925 with a CRP level of 7.4 and metastatic 2.46. The patient is otherwise hemodynamically stable. He has developed some edema in his extremities and the patient is currently on Lasix 40 mg IV every 24 hours and this was started yesterday. He is receiving enteral feeding for nutritional support and the patient is currently on vital high protein which is currently off pending surgical procedure. 07/11/2020, the patient is post tracheostomy tube insertion and a PEG tube insertion as the patient is going to need prolonged respiratory care. At this point in time, he is an assist-control mode with a tidal volume of 400 and a PEEP of 12 and FiO2 of 50% and a rate of 20. The chest x-ray from today shows that the tracheostomy tube is in a good location. Some limited infiltration of the lung bases. There is adequate aeration of the upper part of the lungs bilaterally. The blood gases from today shows a pH of 7.43 with a pCO2 of 44 and pO2 of 62. The patient was encountering elevated airway pressures yesterday the peak pressure was elevated and I thought this was associated related to secretions. The peak airway pressure today is 26 post tracheostomy tube i nsertion. The patient is on sedation. The patient is on propofol at 70 mcg/kg per minute and the patient is also on fentanyl and 0.2 mcg/kg/h. The patient is not receiving any paralytics for now. No feeding for now post extubation insertion. No other issues for now. He remains off Cleviprex. He is hemodynamically stable. Inflammatory markers were essentially dropping on earlier evaluation and I've also started the patient on Lasix. On today's evaluation, the LDH is 1073, slightly higher and his CRP is at 15, slightly higher, his d-dimer is at 1.77, slightly lower. As for the fluid balance, the patient is -3 L over the past 24 hours and the patient was given diuretics and the patient is receiving Lasix 40 mg IV every 24 hours. He is hemodynamically stable. The plan for today is to give the patient lower sedation and try to evaluate his mental status. The plan is to gradually wean off his propofol. 07/12/2020 the patient is tracheostomy tube insertion of PEG tube insertion. Note that immediately post tracheostomy tube insertion, the airway pressures dropped considerably. Meanwhile, the patient remains on a mechanical ventilator on today's evaluation the patient is an assist-control mode with a tidal volume of 400 and a fever of 12 with an FiO2 of 50% and a rate of 20. This is an assist-control mode, volume cycle. He remains sedated. He is receiving propofol at 70 mcg/kg per minute. Patient is also on fentanyl at 3.5 mcg/kg/h. He is on no paralytics. The blood gases showing a pH of 7.42 with a pCO2 of 47 and pO2 of 53. His current pulse ox on a monitor is in the order of 84-87%. The chest x-ray is showing bilateral pulmonary infiltrates consistent with ARDS. He has a tracheostomy tube and the position is adequate. He has also previous thoracotomy scar on the chest x-ray. He has an LDH of 1077 with a CRP of 62. The d-dimer is currently at 1.22. He remains on a prednisone 40 mg by mouth daily and this which was done yesterday as the patient was taken off IV Solu- Medrol. He is on Levemir insulin 20 units today twice a day and the patient is also on NovoLog 7 units every 6 hours and this line scattered coverage. The patient is also receiving Lasix 40 mg every 24 hours. The fluid balance has been negative and his continues to be negative of 1.1 L over the past 24 hours. He is off Cleviprex for now and his blood pressure is stable. No fever. The sputum is positive for gram-negative bacillus and the patient was having excessive amount of rest or secretions. Suggest covering the patient with antibiotics I'm going to start him on cefepime 2 g every 12 hours pending further cultures from the sputum. On today's evaluation, the patient seemed to be quite asynchronous the mechanical ventilator while being on a volume cycled. ventilator changes were done. 16 2020, the patient remains critically ill, on a mechanical ventilator , post tracheostomy tube insertion. In terms of sedation, the patient remains on a combination of propofol and fentanyl. Propofol is running at 70 mcg/kg/m visit fentanyl is 3.5 mcg/kg/h. He is off paralytics. He is on assist control mode and he was switched to pressure control mode of ventilation because of Lasix daily and double stacking. He is currently on a pressure control of 18 with a PEEP of 16 and an inspiratory time of 0.9 with a rate of 20 and FiO2 of 90%. His current blood gases showed a pH of 7.44 with a pCO2 of 34 and pO2 of 55. Chest x-ray is showing bibasilar pulmonary infiltrates slightly worse on the left. Tracheostomy tube is in a good location. His current pulse ox on the monitor is 88%. The peak static pressures are 36 and 35 respectively. His chest x-ray showing some limited infiltration left lung baseairfit noted yesterday, the patient was getting more febrile and he was becoming also hypotensive. His sputum was growing gram-negative bacillus hose turner to be Klebsiella. He was given a total of 2 L of IV fluid bolus and the patient was started on IV cefepime as an empiric antibiotic coverage. His pro-calcitonin level is currently at 0.26. He is currently on IV cefepime. He is also running pressors with norepinephrine infusion at 0.02 mcg/kg per minute.Fluid balance over the past 24 hours has been 2.1 L. The patient currently is quite suc cessfully mechanical ventilator. He has a fecal management system. He is receiving enteral feeding for nutritional support and is currently on vital 8. At the rate of 60 mL an hour. No abdominal distention. He is stooling. He has been on Levemir insulin and 20 units twice a day and he is also on NovoLog 7 units every 6 hours and a sliding scale coverage. 07/14/2020, the patient has been successfully taken off the propofol because of increased triglycerides within the system and the patient was switched to a combination of Precedex and fentanyl. Precedex is currently running at 2.5 mcg /kg per minute and fentanyl is running at 1 g subcu to gram per minute. The patient is currently on a pressure control mode of ventilation with a pressure control of 18, PEEP of 16, FiO2 is at 100% with a rate of 20. Blood gas today is showing a pH of 7.31 with a pCO2 of 53 and pO2 of 52. The chest x-ray is showing diffuse bilateral pulmonary airspace disease and infiltrates in the mid and lower lung carson bilaterally. The patient has a Bivona tracheostomy tube in place. Note that the airspace disease probably worse compared to yesterday. Note that the patient was acting septic yesterday. Further cultures revealed Klebsiella in his sputum and the patient is currently on IV antibiotics with IV cefepime and vancomycin. The blood cultures have been otherwise negative.. With the initiation of the antibiotics, he became hemodynamically improved. He is currently on a minimal amount of norepinephrine infusion at 0.02 mcg/kg per minute. His pro-calcitonin level was at 0.26. The patient is in a positive fluid balance. Creatinine is at 1.3. His LDH level is 1694, his CRP level is at 4, his d-dimer is at 1.48. He was febrile yesterday and currently he is afebrile. He is receiving enteral feeding for nutritional support and is currently on vital 8. At the rate of 60 mL an hour. No abdominal distention. He is stooling. He has been on Levemir insulin and 20 units twice a day and he is also on NovoLog 7 units every 6 hours and a sliding scale coverage. This morning at around 6 AM, the patient slept his cardiac rhythm into atrial fibrillation. There is a new onset A. fib. His previous echocardiogram from 2018 was within normal limits. No rapid ventricular response for now. The patient's rate is controlled. His atrial fibrillation occurred while the patient became briefly off sedation this morning and the patient is still in atrial fibrillation for now. His platelet count is down to 38 and his HIV antibodies came back negative. DIC profile is showing some mild elevation of the INR and a PT and the PTT. Fibrinogen level is at 368. 07/15/2020, the patient remains on a mechanical ventilator, sedated and he is off paralytics. He is on a combination of Precedex running at 0.5 Harry respiratory kilo gram per minute and fentanyl is running at 2 mcg/kg/h. He remains on a pressure control mode of mechanical ventilation. Pressure control currently is at a pressure of 18, PEEP is at 20 with an FiO2 of 1% and a rate of 20. His blood gases showed a pH of 7.36 with a pCO2 of 44 and pO2 of 57. Chest x-ray showing diffuse bilateral pulmonary infiltrates consistent with ARDS. His peak air pressures 38 anesthetic pressures 37. The family either markers are still quite elevated. His LDH level is at 2055 and the CRP level is at 22.8. He also has some mild elevation of CPK at 927. His net fluid balance is +2 59 mL over the past 24 hours. Note that the patient was also getting septic yesterday. Suspected a superimposed pneumonia with Klebsiella. Based on that, the patient was covered with cefepime IV 2 g every 12 hours. He was also on p ressors and the patient was requiring low dose norepinephrine infusion that was weaned off vent was discontinued and currently is maintaining his own blood pressure. Blood cultures have been negative. His pro-calcitonin level from few days ago was low at 0.26. In terms of his renal function, creatinine is improving and is currently down to 1.2. His platelet counts have been declining significantly and DIC was suspected. The DIC profile was sent and the patient has a fibrinogen level of 607. Rest of the coagulation profile is still pending for now. Follow-up platelet count from today still pending. Coagulation profile is also pending. D-dimer today is at 5.41. The patient is currently off anticoagulation. His cardiac rhythm is atrial fibrillation which is well- controlled. He has a normal left ventricle ejection fraction. He is receiving vital high protein at the rate of 55 mL an hour. He is stooling and he has a liquidy bowel movement, and stool for C. diff will be checked. No bleeding complications. He is deeply sedated with the current combination of Precedex and fentanyl. He does grimace to deep painful stimulation. No purposeful movement. Does not follow any commands. No other significant events overnight. In the family. Insisted on ivermectin use and this was provided to the patient. Only 1 dose was given. The family was very adamant on this patient getting the medication. We were able to give the medication yesterday and this was given after a lengthy discussion with the family that this was not our recommendations and it also goes against CDC recommendations. Objective - Vital Signs Vital signs: Vital Signs Temp 97.7 F 07/15/20 04:00 Pulse 77 07/15/20 07:00 Resp 11 L 07/15/20 07:00 BP 115/58 07/13/20 06:00 Pulse Ox 90 L 07/15/20 07:00 Intake & Output 07/14/20 07/15/20 07/15/20 18:59 06:59 18:59 Intake Total 5857.257 5212.000 79 Output Total 805 1650 100 Balance 297.436 -276.000 -21 Weight 140.2 kg Intake: IV 253 276 23 Pressure bag 33 36 3 Sodium Chloride 0.9% 1, 220 240 20 000 ml @ 20 mls/hr IV . Q24H [facility] Rx#:[id number] Intake, IV Titration 165.436 400.000 Amount Dexmedetomidine/0.9% NaCl 100 200 (Pmx) 400 mcg In Empty Bag 1 bag @ Titrate IV . Q0M [facility] Rx#:[id number] Norepinephrine 8 mg In 0 Sodium Chloride 0.9% 250 ml @ 0.05 MCG/KG/MIN 13. 061 mls/hr IV .[id number] [facility] Rx#:[id number] fentaNYL (PF). 1,000 mcg 65.436 200.000 In Sodium Chloride 0.9% 80 ml @ Per Protocol IV . Q0M [facility] Rx#:[id number] Tube Feeding 594 608 56 Other 90 90 Output: Urine 805 950 100 Stool 700 Other: Voiding Method Indwelling Catheter Indwelling Catheter ABP, PAP, CO, CI - Last Documented Arterial Blood Pressure 122/66 - Exam Sedated , currently intubated and mechanically ventilated. There is tracheostomy tube in place extra long Bivona #8. No bleeding from the stoma Head exam was generally normal. There was no scleral icterus or corneal arcus. Mucous membranes were moist. Neck was supple and without jugular venous distension, thyromegaly, or carotid bruits. Carotids were easily palpable bilaterally. There was no adenopathy. Orogastric and orotracheal tube are both in place.tracheostomy tube in place Cardiac exam revealed the PMI to be normally situated and sized. The rhythm is irregular and no extrasystoles were noted during several minutes of auscultation. The first and second heart sounds were normal and physiologic splitting of the second heart sound was noted. There were no murmurs, rubs, clicks, or gallops. Lungs reveal bilateral crackles and diffuse scattered bilateral rhonchi. There are no wheezes. Breath sounds equal bilaterally. Abdominal exam revealed normal bowel sounds. The abdomen was soft, non-tender, a nd without masses, organomegaly, or appreciable enlargement of the abdominal aorta. PEG tube site is dry clean and intact Examination of the extremities revealed easily palpable radial, femoral and p edal pulses. There was no cyanosis, clubbing or edema. Examination of the skin revealed no evidence of significant rashes, suspicious appearing nevi or other concerning lesions. Neurologic examination could not be assessed as the patient's is sedated. - Labs CBC & Chem 7: 07/15/20 04:10 07/15/20 04:10 Labs: Abnormal Lab Results - Last 24 Hours (Table) 07/14/20 07/14/20 07/14/20 Range/Units 04:20 12:12 13:56 WBC (3.8-10.6) k/uL RBC (4.30-5.90) m/uL Hgb (13.0-17.5) gm/dL Hct (39.0-53.0) % RDW (11.5-15.5) % D-Dimer (<0.60) mg/L FEU ABG pH 7.30 L (7.35-7.45) ABG pCO2 51 H (35-45) mmHg ABG pO2 47 L* (83-108) mmHg ABG Total CO2 27 H (19-24) mmol/L ABG O2 Saturation 76.9 L (94-97) % Chloride (98-107) mmol/L BUN (9-20) mg/dL Glucose (74-99) mg/dL POC Glucose (mg/dL) 130 H (75-99) mg/dL Calcium (8.4-10.2) mg/dL Magnesium (1.6-2.3) mg/dL Ferritin 2083.5 H (22.0-322.0) ng/mL AST (17-59) U/L Lactate Dehydrogenase (313-618) U/L Creatine Kinase (55-170) U/L C-Reactive Protein 34.4 H (<1.0) mg/dL Total Protein (6.3-8.2) g/dL Albumin (3.5-5.0) g/dL 07/14/20 07/15/20 07/15/20 Range/Units 18:03 00:51 04:10 WBC 2.3 L (3.8-10.6) k/uL RBC 3.50 L (4.30-5.90) m/uL Hgb 10.8 L (13.0-17.5) gm/dL Hct 31.2 L (39.0-53.0) % RDW 15.6 H (11.5-15.5) % D-Dimer (<0.60) mg/L FEU ABG pH (7.35-7.45) ABG pCO2 (35-45) mmHg ABG pO2 (83-108) mmHg ABG Total CO2 (19-24) mmol/L ABG O2 Saturation (94-97) % Chloride (98-107) mmol/L BUN (9-20) mg/dL Glucose (74-99) mg/dL POC Glucose (mg/dL) 147 H 155 H (75-99) mg/dL Calcium (8.4-10.2) mg/dL Magnesium (1.6-2.3) mg/dL Ferritin (22.0-322.0) ng/mL AST (17-59) U/L Lactate Dehydrogenase (313-618) U/L Creatine Kinase (55-170) U/L C-Reactive Protein (<1.0) mg/dL Total Protein (6.3-8.2) g/dL Albumin (3.5-5.0) g/dL 07/15/20 07/15/20 07/15/20 Range/Units 04:10 04:10 05:49 WBC (3.8-10.6) k/uL RBC (4.30-5.90) m/uL Hgb (13.0-17.5) gm/dL Hct (39.0-53.0) % RDW (11.5-15.5) % D-Dimer 5.41 H (<0.60) mg/L FEU ABG pH (7.35-7.45) ABG pCO2 (35-45) mmHg ABG pO2 57 L* (83-108) mmHg ABG Total CO2 26 H (19-24) mmol/L ABG O2 Saturation 88.4 L (94-97) % Chloride 115 H (98-107) mmol/L BUN 68 H (9-20) mg/dL Glucose 132 H (74-99) mg/dL POC Glucose (mg/dL) (75-99) mg/dL Calcium 8.0 L (8.4-10.2) mg/dL Magnesium 2.6 H (1.6-2.3) mg/dL Ferritin (22.0-322.0) ng/mL AST 101 H (17-59) U/L Lactate Dehydrogenase 2056 H (313-618) U/L Creatine Kinase 927 H (55-170) U/L C-Reactive Protein 22.8 H (<1.0) mg/dL Total Protein 4.4 L (6.3-8.2) g/dL Albumin 2.1 L (3.5-5.0) g/dL 07/15/20 Range/Units 06:26 WBC (3.8-10.6) k/uL RBC (4.30-5.90) m/uL Hgb (13.0-17.5) gm/dL Hct (39.0-53.0) % RDW (11.5-15.5) % D-Dimer (<0.60) mg/L FEU ABG pH (7.35-7.45) ABG pCO2 (35-45) mmHg ABG pO2 (83-108) mmHg ABG Total CO2 (19-24) mmol/L ABG O2 Saturation (94-97) % Chloride (98-107) mmol/L BUN (9-20) mg/dL Glucose (74-99) mg/dL POC Glucose (mg/dL) 143 H (75-99) mg/dL Calcium (8.4-10.2) mg/dL Magnesium (1.6-2.3) mg/dL Ferritin (22.0-322.0) ng/mL AST (17-59) U/L Lactate Dehydrogenase (313-618) U/L Creatine Kinase (55-170) U/L C-Reactive Protein (<1.0) mg/dL Total Protein (6.3-8.2) g/dL Albumin (3.5-5.0) g/dL Microbiology - Last 24 Hours (Table) 07/12/20 17:39 Blood Culture - Preliminary Blood No Growth after 48 hours Assessment and Plan Plan: 1 ARDS with secondary acute hypoxemic respiratory failure secondary to COVID 19 pneumonia, suspected superinfection with Klebsiella and the patient is currently on IV cefepime. The patient is currently on a pressure control mode of ventilation. He is on a high PEEP. Peak and static pressures remain quite elevated. Chest x-ray findings and essentially stable and unchanged. In terms of his oxygenation, the patient is still doing poorly on a pressure control mode of ventilator. His post tracheostomy tube insertion. Patient has received both convalescent plasma and Tocilizumab. A superinfection on top of his COVID-19 related pneumonia is suspected. Consider a hospital-acquired healthcare acquired pneumonia with Klebsiella. 2 History of chronic bronchial asthma. 3 sepsis, currently off pressors and the patient received fluids and pressors and hemodynamically is doing better for now. 4 History of CAD, status post bypass grafting. 5 History of diabetes mellitus. 6 Hyperlipidemia by history. 7 Hypertension. 8 Hepatitis C. 9 obesity, BMI 44 10 History of hypothyroidism. 11 History of osteoarthritis. 12 thrombocytopenia with persistent drop in his platelet count down to 38. off Lovenox for now. check HIT antibodies was negative. DIC profile has been sent. Fibrinogen level is quite elevated. 13 atrial fibrillation with a controlled rate, unable to anticoagulate this patient because of his underlying thrombocytopenia. Plan With a combination of Precedex and fentanyl, wean sedation and assess the patient mental status. sedation holiday for today The patient is currently off paralytics Continue the pressure control mode of ventilator, no changes Pressors have been discontinued The patient is covered with antibiotics and the patient will be continued on IV cefepime 2 g every 12 hours Discontinue aspirin Discontinue Lipitor Discontinue fenofibrate Continue enteral feeding for nutritional support, post PEG tube insertion Monitor inflammatory markers Adjusted tube feed rate now that the patient is off propofol currently on vital high protein at the rate of 55 Continue Levemir for blood sugar control, adjust the dose to 20 units twice a day, Discontinue the Actos Ivermectin 1 dose was given upon family's request The patient adequate blood sugar control Continue the rest of the supportive care Critically care evaluation more than 30 minutes Time with Patient: Greater than 30
[2020-07-15] MEDS: ALBUTEROL HFA INHALER INHALATION SCH ×4 (08:41→20:59)
[2020-07-15] MEDS ORDERED: ARTIFICIAL TEARS-HYPROMELLOSE DROPS 15 ML BTL BOTH EYES PRN (09:00)
[2020-07-15] MEDS: ZINC SULFATE 220 MG CAP PO SCH (09:35)
[2020-07-15] MEDS: CEFEPIME 2 GM in SODIUM CHLORIDE 0.9% 100 ML IVPB SCH ×2 (09:35→20:30)
[2020-07-15] MEDS: predniSONE 20 MG TAB PO SCH (09:35)
[2020-07-15] MEDS: METOPROLOL TARTRATE 25 MG TAB PO SCH ×2 (09:35→20:30)
[2020-07-15] MEDS: CHLORHEXIDINE GLUCONATE 15 ML CUP MUCOUS MEM SCH ×2 (09:35→20:30)
[2020-07-15] MEDS: CHOLECALCIFEROL 25 MCG (1000 IU) TABLET PO SCH (09:35)
[2020-07-15] MEDS: MULTIVITAMINS, THERA 1 EACH TAB PO SCH (09:35)
[2020-07-15] MEDS: ASCORBIC ACID 500 MG TAB PO SCH (09:36)
[2020-07-15] MEDS: PANTOPRAZOLE 40 MG/10 ML VIAL IVP SCH (09:36)
[2020-07-15] MEDS: amLODIPine 10 MG TAB PO SCH (09:36)
[2020-07-15] MEDS: polyethylene glycoL 3350 17 GM POWD.PACK PO SCH (09:37)
[2020-07-15] MEDS: SENNOSIDES-DOCUSATE SODIUM 1 EACH TAB PO SCH (09:37)
[2020-07-15 11:03] LABS: Band Neutrophils % 4 %; Eosinophils # (M) 0.18 k/uL (0-0.7); Lymphocytes # (M) 0.14 k/uL (1.0-4.8); Metamyelocytes # (M) 0.05 k/uL (0); Metamyelocytes % 2 %; Monocytes # (M) 0.05 k/uL (0-1.0); Myelocytes # (M) 0.02 k/uL (0); Myelocytes % 1 %; Neutrophils % (M) 78 %; Nucleated Red Blood Cells 0 /100 WBC (0-0); Total Cells Counted 200
[2020-07-15 11:07] LABS: Platelet Count 39 k/uL (150-450)
[2020-07-15 12:33] LABS: Glucose,Whole Blood 192 mg/dL (75-99)
[2020-07-15 14:24] LABS: ABG HCO3 25 mmol/L (21-25); ABG Oxygen Saturation 79.6 % (94-97); ABG PCO2 43 mmHg (35-45); ABG PH 7.36 (7.35-7.45); ABG TCO2 26 mmol/L (19-24); Allen Test Performed? Yes
[2020-07-15 14:27] LABS: ABG PO2 46 mmHg (83-108)
--- NOTE | 2020-07-15 15:40 | P.PN ---
Subjective Progress Note Date: 07/15/20 HISTORY OF PRESENT ILLNESS This is a 80-year-old male patient of Dr. 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 Patient states that he has had symptoms for 2 weeks which include body aches, shortness of breath coming foggy thinking. He denies any nausea, vomiting or diarrhea. He states he has had sputum production. He denies any lower extremity edema. Patient does not have home oxygen. Patient presented to [facility] emergency center for evaluation. Chest x-ray reveals bibasilar patchy opacities consistent with multifocal infection. No pleural effusions or pneumothorax. Temperature 100.1, heart rate 75, respiratory rate 24, blood pressure 125/63 and pulse ox 83% on room air. EKG was a sinus rhythm at 66 bpm. CBC was unremarkable except for lymphocytosis of 0.5. INR 1.0. Sodium 135, BUN 28 creatinine 1.68. Blood sugar 202. Lactic acid 1.6. Liver function tests were normal. LDH 730. C- reactive protein and a 5.9. ProBNP 522. 4/2: Patient is seen today on the observation unit as an overflow. Pulse ox is 84% on 15 L hyponasal cannula and nonrebreather. Patient seems to have more shortness of breath today and also complains of wheezing. No significant cough production. No fever or chills. No chest pain. WBC 11.2, hemoglobin 14.8, platelet count 233. Repeat chest x-ray reveals findings consistent with pneumonia. Pro-calcitonin 0.12. Blood sugars running in the 200s. Patient to be moved to the intensive care unit. 06/30: Patient declined significantly in the afternoon yesterday ended up on mechanical ventilation, he been sedated currently his marker are still quite bit high. Patient still required high demand O2 along with high PEEP of 15-20 to keep his pulse ox at the margin of 90 percentile. His blood sugars mildly elevated and still been managed on insulin, white blood cell is up to 13,000 today, his blood gas shows pO2 of 653 only. CO2 of 27 and pH of 7.31 creatinine has slightly improved since yesterday he C-reactive protein is up to 144 and LDH of 748. 4/4: Patient is still on mechanical ventilation is FiO2 is down to 70% still on PEEP of 18 I had long discussion with the and update her on with outpatient patient's condition still guarded this point his prognosis still not good but he has slight improvement compared to yesterday, his kidney function has improved slightly bit compared to yesterday as well. 07/02: Patient remains in the ICU. Patient is intubated and on mechanical ventilation with tidall volume 450,, FiO2 60%, PEEP of 18 which is improved from yesterday. He is pulse oxing 92-95%. He has been afebrile, heart rate in the 40s, respiratory rate 28, blood pressure 148/67. cremator is sinus bradycardia. Repeat lab work reveals WBC 12.4, hemoglobin 13.1, platelet count 266. Sed rate 33. D-dimer 0.45. Sodium 140, potassium 4.7, chloride 110, CO2 24, BUN 44 and creatinine 0.25. Blood sugars running between 197 and 248. Ferritin 629.9. LDH 704. He is currently nothing by mouth. 07/03: Patient has been afebrile, heart rate 61, blood pressure 177/104, pulse ox 97%. Patient remains intubated and on mechanical ventilation with tidal volume 450, FiO2 60, PEEP of 18. Repeat blood work reveals WBC 15.9, hemoglobin 14.9, platelet count 341. Lymphocytes 0.5. Sodium 140, potassium 4.9, chloride 109, CO2 22, BUN 44 and creatinine 1. LDH 951. Liver function tests normal. Blood sugars running between 221 and 299. Levemir will be increased to 20 units twice daily and scheduled NovoLog will be increased to 7 units every 6 hours along with NovoLog scale continued. Tube feedings are at goal. Repeat chest x-ray reveals diffuse pleural parenchymal changes correlate for interstitial pneumonia is stable. Dr. Beverly has stopped Nimbex and Cleviprex. 07/04: Heart rate has been running in the 40s and Lopressor decreased from 50 mg twice daily to 25 mg twice daily and parameters to hold if heart rate is less than 55. Blood pressure is still been an issue and patient was weaned off Alan viprex. She remains intubated and on mechanical ventilation with tidal volume 520, FiO2 60, PEEP of 18. Blood sugar was still running high until this morning, this morning's blood sugar 194. Adjustments were made to his insulin yesterday and tube feeding dose decreased today. Will hold on making any further changes with insulins. Repeat blood work reveals sed rate of 90, d- dimer 0.73. Sodium 141, potassium 4.6, chloride 112, CO2 25, BUN 43, creatinine 1.10. Ferritin 683.9. LDH 745. Repeat chest x-ray reveals diffuse bilateral airspace disease stable correlate for diffuse pneumonia, ARDS versus pulmonary edema. 07/05: Patient remains intubated and on mechanical ventilation with tidal volume 450, FiO2 60 and PEEP of 20. Patient has been afebrile, heart rate in the 40s, respiratory rate 28, blood pressure 134/60, pulse ox 98%. Lopressor is not been given at a lower rate due to bradycardia. Repeat blood work reveals WBC 13.6, hemoglobin 13.6, platelet count 292. Blood sugars running between 148 and 179. 07/06: Patient remains in the intensive care unit intubated and on mechanical ventilation with tidal volume 450, FiO2 60, PEEP of 20. He is on propofol and fentanyl. He is also currently on Cleviprex. Repeat chest x-ray reveals diffuse interstitial infiltrates are stable. WBC 14.2, hemoglobin 14.2, platelet count 292. Creatinine 0.97 and BUN 48. Blood sugars running between 165 an 187. Patient may require PEG tube and trach. 07/07: Repeat chest x-ray reveals mild improving nonspecific infiltrate can be compatible with atypical pneumonia. He remains in the intensive care unit intubated and on mechanical ventilation with tidal volume 450, FiO2 decreased to 50% and PEEP of 16. He is still on Cleviprex. He remains on sedation. He is tolerating tube feedings. Repeat blood work reveals WBC 9.1, hemoglobin 12.3, platelet count 244. D-dimer 1.35. BUN 41 creatinine 0.86. Blood sugars running between 146 and 168. C-reactive protein 7.9. CK 52. 07/08: Patient remains in the intensive care unit. He is on propofol and Ventolin. He is on mechanical ventilation with tidal volume 450, FiO2 50%, PEEP down to 16. Tube feedings are 10 MLS per hour at goal. POO 97%, HR improved and patient received lopressor last night and this morning. He as been afebrile. BP 148/72 and on Cleviprex. WBC 14.3. D-dimer 1.92. BUN 48 and creatinine 0.93. Calcium 8.2. Ferritin 548.2. Liver function tests are normal. LDH 1224. CK 65. C-reactive protein 6.6. 07/09: Patient remains intubated and on mechanical ventilation with tidal volume 450, FiO2 50 and PEEP of 16. Amlodipine was increased to [address] Dumont for blood pressure control. Patient remains on Cleviprex. Patient is also on fentanyl and propofol. Patient is also on tube feedings. Patient is on IV Lasix and IV Solu-Medrol. Proceeding has been consulted for PEG and trach placement. Repeat chest x-ray reveals diffuse bilateral predominantly interstitial infiltrates with basilar consolidative infiltrate stable. Patient has been afebrile, heart rate 52, blood pressure 149/74, pulse ox 89%. Repeat blood work reveals WBC 12.3, hemoglobin 13.7. D-dimer 2. Sodium 136, potassium 4.3, chloride 110, CO2 22, BUN 45 and creatinine 0.85. Sugars are running 136- 152. Ferritin 518.4. LDH 949, CK 52. C-reactive protein 7.3. 07/10: She remains intubated and on mechanical ventilation with tidal volume 380, FiO2 50, PEEP of 14 which is down from yesterday. Patient is scheduled for PEG tube and trach insertion today. He has been afebrile, heart rate in the 50s, blood pressure 129/69, pulse ox 93%. Repeat blood work reveals WBC 11.3, hemoglobin 14.6. Electrolytes normal. Creatinine 0.81. Blood sugars are running between 100 2244. LDH 925, CK 52, C-reactive protein 7.4. 07/11: Patient underwent trach and PEG tube placement yesterday with Dr. Rodríguez. He is currently on vent settings with tidal volume 650, FiO2 of 50%, PEEP of 12. Patient has been afebrile, heart rate in the 40s and 50s, blood pressure 105/54, pulse ox 87%. Repeat blood work reveals platelet count 149. Electrolytes normal, BUN 47 creatinine 0.85. Blood sugars running between 124 and 138. LDH 1073, CK 81, C-reactive protein 15.1. D-dimer 1.77. Prognosis remains guarded. 07/12: Patient remains in the intensive care unit on mechanical ventilation with pulse ox of 85% with tidal volume 700, FiO2 80 and PEEP of 14. Repeat blood work reveals WBC 5.8, hemoglobin 13.8, platelet count 104. D-dimer 1.22. Sodium 138, potassium 3.3, chloride 106, CO2 27, BUN 56 and creatinine 1.17. LDH 1077. C-reactive protein 62.2. Repeat chest x-ray reveals improvement in lung volume, aeration. Patient has been tolerating tube feedings which were started yesterday. No residuals. Patient has small amount of bleeding at the tracheostomy site. Patient is on IV antibiotics in form of cefepime. Sputum culture is in progress. 07/13: Patient remains on mechanical ventilation. His pulse ox is 90% on FiO2 of 90, pressure control of 18, PEEP of 16. Patient has been afebrile, heart rate 60s, blood pressure 124/62. Blood pressure has been running low and he is status post 2 L of IV fluid. Patient is on a low-dose of levo fed. EP blood work reveals WBC 5.5, hemoglobin 11.2, platelet count 62. D-dimer 1.35. Potassium 3.3 and was replaced. BUN 65 and creatinine 1.43. Blood sugars 121- 186. LDH 1564, CK 680, C-reactive protein 220. Repeat chest x-ray reveals bilateral interstitial and alveolar infiltrate stable. Sputum culture is positive for Klebsiella and patient is on cefepime. Patient is tolerating tube feedings. Fecal management system is in place. Patient had more bleeding from his trach site during the night. 07/14 patient remains in the ICU on mechanical ventilation on pressure control would want to treat her with pressure control of 18 PEEP 16 FiO2 100% with a respiratory rate of 20. Patient is currently on Precedex and fentanyl for sedation. No sedation tomorrow today. Patient continues to require minimal amount of levo fed. Patient was desaturating to 90% on 100% FiO2 with the pressure of 96/59. Data blood gas obtained during suggest a pH of 7.3 pCO2 51 a nd pO2 52 bicarb 26 lapses as a potassium of 2.9 chloride 112 creatinine 1.37 glucose 137 calcium 7.6 increased inflammation marker with LDH at 1694 increased from prior,'s true calcitonin 0.26 triglycerides 04/06/1931 LDH 1694. D-dimer is elevated at 1.48. Platelet has decreased to 38. Fibrinogen is normal at 368 APTT 40.5 INR 1.3.e Patient has been afebrile for 24 hours. Vancomycin is discontinued patient continues to be on cefepime 2 g every 12 hours for Klebsiella Pneumonia. Aspirin, Lipitor and fenofibrate discontinued. Enteral feeding continued for nutrition. 07/15 patient's remain in the ICU on mechanical ventilation on Precedex and fentanyl. He remains on pressure controlled PEEP of 20 any FiO2 of 100% respiratory rate 20. On assessment the patient's chest x-ray does show diffuse bilateral pulmonary infiltrates consistent with ARDS. Labs reevaluated patient's LDH is 20 56 CRP 22.8 CPK was mildly elevated at 927. Ferritin is high. Patient is currently off pressors. DIC panel was sent pending fibrillation is 67. Blood culture so far is negative. D-dimer is 5.4. Continues to leukopenic hemoglobin stable at 10.8 continue cefepime for Klebsiella pneumonia. Patient has minimal movement on painful stimulus and has no purposeful movement. Did have multiple bowel movements for which C. diff has been checked. Objective - Vital Signs Vital signs: Vital Signs Temp 99.1 F 07/15/20 12:00 Pulse 86 07/15/20 14:00 Resp 24 07/15/20 14:00 BP 138/81 07/15/20 14:00 Pulse Ox 78 L 07/15/20 14:00 Intake & Output 07/14/20 07/15/20 07/15/20 18:59 06:59 18:59 Intake Total 6945.966 3474.000 1061.913 Output Total 805 1650 1135 Balance 297.436 -276.000 -73.087 Weight 140.2 kg Intake: IV 253 276 243 Cefepime 2 gm In Sodium 100 Chloride 0.9% 100 ml @ 25 mls/hr IVPB Q12HR [facility] Rx #:[id number] Pressure bag 33 36 33 Sodium Chloride 0.9% 1, 220 240 110 000 ml @ 20 mls/hr IV . Q24H [facility] Rx#:[id number] Intake, IV Titration 165.436 400.000 310.913 Amount Dexmedetomidine/0.9% NaCl 100 200 40.775 (Pmx) 400 mcg In Empty Bag 1 bag @ Titrate IV . Q0M [facility] Rx#:[id number] Dexmedetomidine/0.9% NaCl 66.946 (Pmx) 400 mcg In Empty Bag 1 bag @ Titrate IV . Q0M [facility] Rx#:[id number] Norepinephrine 8 mg In 0 Sodium Chloride 0.9% 250 ml @ 0.05 MCG/KG/MIN 13. 061 mls/hr IV .[id number] [facility] Rx#:[id number] fentaNYL (PF). 1,000 mcg 65.436 200.000 203.192 In Sodium Chloride 0.9% 80 ml @ Per Protocol IV . Q0M [facility] Rx#:[id number] Tube Feeding 594 608 448 Other 90 90 60 Output: Urine 805 950 535 Stool 700 600 Other: Voiding Method Indwelling Catheter Indwelling Catheter Indwelling Catheter ABP, PAP, CO, CI - Last Documented Arterial Blood Pressure 131/70 - Exam PHYSICAL EXAMINATION Defer to pulmonary medicine due to intubation and active Covid status. Gen: This is a morbidly obese 80-year-old male. He is resting in ICU bed with trachea, mechanical ventilation. HEENT: Head is atraumatic, normocephalic. LUNGS: No intercostal retractions. NEUROLOGICAL: Patient is sedated. - Labs CBC & Chem 7: 07/15/20 04:10 07/15/20 04:10 Labs: Abnormal Lab Results - Last 24 Hours (Table) 07/14/20 07/15/20 07/15/20 Range/Units 18:03 00:51 04:10 WBC 2.3 L (3.8-10.6) k/uL RBC 3.50 L (4.30-5.90) m/uL Hgb 10.8 L (13.0-17.5) gm/dL Hct 31.2 L (39.0-53.0) % RDW 15.6 H (11.5-15.5) % Plt Count 39 L (150-450) k/uL Lymphocytes # (Manual) 0.14 L (1.0-4.8) k/uL Metamyelocytes # (Man) 0.05 H (0) k/uL Myelocytes # (Manual) 0.02 H (0) k/uL D-Dimer (<0.60) mg/L FEU ABG pO2 (83-108) mmHg ABG Total CO2 (19-24) mmol/L ABG O2 Saturation (94-97) % Chloride (98-107) mmol/L BUN (9-20) mg/dL Glucose (74-99) mg/dL POC Glucose (mg/dL) 147 H 155 H (75-99) mg/dL Calcium (8.4-10.2) mg/dL Magnesium (1.6-2.3) mg/dL Ferritin (22.0-322.0) ng/mL AST (17-59) U/L Lactate Dehydrogenase (313-618) U/L Creatine Kinase (55-170) U/L C-Reactive Protein (<1.0) mg/dL Total Protein (6.3-8.2) g/dL Albumin (3.5-5.0) g/dL 07/15/20 07/15/20 07/15/20 Range/Units 04:10 04:10 05:49 WBC (3.8-10.6) k/uL RBC (4.30-5.90) m/uL Hgb (13.0-17.5) gm/dL Hct (39.0-53.0) % RDW (11.5-15.5) % Plt Count (150-450) k/uL Lymphocytes # (Manual) (1.0-4.8) k/uL Metamyelocytes # (Man) (0) k/uL Myelocytes # (Manual) (0) k/uL D-Dimer 5.41 H (<0.60) mg/L FEU ABG pO2 57 L* (83-108) mmHg ABG Total CO2 26 H (19-24) mmol/L ABG O2 Saturation 88.4 L (94-97) % Chloride 115 H (98-107) mmol/L BUN 68 H (9-20) mg/dL Glucose 132 H (74-99) mg/dL POC Glucose (mg/dL) (75-99) mg/dL Calcium 8.0 L (8.4-10.2) mg/dL Magnesium 2.6 H (1.6-2.3) mg/dL Ferritin 2016.6 H (22.0-322.0) ng/mL AST 101 H (17-59) U/L Lactate Dehydrogenase 2056 H (313-618) U/L Creatine Kinase 927 H (55-170) U/L C-Reactive Protein 22.8 H (<1.0) mg/dL Total Protein 4.4 L (6.3-8.2) g/dL Albumin 2.1 L (3.5-5.0) g/dL 07/15/20 07/15/20 07/15/20 Range/Units 06:26 12:32 14:17 WBC (3.8-10.6) k/uL RBC (4.30-5.90) m/uL Hgb (13.0-17.5) gm/dL Hct (39.0-53.0) % RDW (11.5-15.5) % Plt Count (150-450) k/uL Lymphocytes # (Manual) (1.0-4.8) k/uL Metamyelocytes # (Man) (0) k/uL Myelocytes # (Manual) (0) k/uL D-Dimer (<0.60) mg/L FEU ABG pO2 46 L* (83-108) mmHg ABG Total CO2 26 H (19-24) mmol/L ABG O2 Saturation 79.6 L (94-97) % Chloride (98-107) mmol/L BUN (9-20) mg/dL Glucose (74-99) mg/dL POC Glucose (mg/dL) 143 H 192 H (75-99) mg/dL Calcium (8.4-10.2) mg/dL Magnesium (1.6-2.3) mg/dL Ferritin (22.0-322.0) ng/mL AST (17-59) U/L Lactate Dehydrogenase (313-618) U/L Creatine Kinase (55-170) U/L C-Reactive Protein (<1.0) mg/dL Total Protein (6.3-8.2) g/dL Albumin (3.5-5.0) g/dL Microbiology - Last 24 Hours (Table) 07/12/20 17:39 Blood Culture - Preliminary Blood No Growth after 48 hours Assessment and Plan Plan: ASSESSMENT AND PLAN 1. Acute hypoxic respiratory failure secondary to COVID19 and Klebsiella hospital-acquired Pneumonia. Patient is status post Tocilizumab and convalescent plasma. Continue mechanical ventilation. Solu-Medrol discontinued, on prednisone 40 mg continue, vitamins C, vitamin D, zinc, Symbicort twice daily, continue vent management patient is managed by first aid instructor. Consult with Dr. Rodríguez status posttrach and PEG tube insertion. Patient has been started on cefepime. Vancomycin discontinued status post one dose of ivermectin on request of patient's family 2. Possible secondary Klebsiella pneumonia. Patient is on cefepime. 3. Acute kidney injury with chronic kidney disease stage III. 3. History of coronary artery disease status post CABG, stable. Hold aspirin and Lipitor, Lopressor 25 mg twice daily. 4. Diabetes mellitus type 2, uncontrolled with hyperglycemia secondary to steroids. Discontinued Actos 30 mg daily, NovoLog scale before meals and at bedtime, continue Levemir 20 units twice daily, NovoLog scale every 6 hours. No change in medications. 5. Hypertension. Continue Lopressor with parameters for bradycardia, Norvasc 10 mg daily. Continue Cleviprex. 6. Hyperlipidemia. Hold atorvastatin and fenofibrate 7. Hypothyroidism. Continue levothyroxine 75 g daily. 8. Bradycardia. Lopressor 25 mg twice daily . 9. Severe protein calorie malnutrition secondary to extended intubation. Patient is status post PEG tube insertion. Continue tube feedings. 10. Thrombocytopenia secondary to Covid. Lovenox discontinued. Hit antibodies ordered. Bleeding from trach monitored. 11. GI prophylaxis. Protonix. 12. DVT prophylaxis. 13 new-onset atrial fibrillation rate controlled on metoprolol. Anticoagulation held due to bleeding Prognosis is guarded.
[2020-07-15 16:24] LABS: ABG HCO3 25 mmol/L (21-25); ABG Oxygen Saturation 88.3 % (94-97); ABG PCO2 49 mmHg (35-45); ABG PH 7.32 (7.35-7.45); ABG TCO2 27 mmol/L (19-24); Allen Test Performed? Yes
[2020-07-15 16:26] LABS: ABG PO2 59 mmHg (83-108)
[2020-07-15 17:12] LABS: Glucose,Whole Blood 154 mg/dL (75-99)
[2020-07-15] MEDS: SODIUM CHLORIDE 0.9% 1,000 ML IV SCH (19:47)
[2020-07-15 23:48] LABS: Glucose,Whole Blood 144 mg/dL (75-99)
[2020-07-16] MEDS: fentaNYL (PF). 1,000 MCG in SODIUM CHLORIDE 0.9% 80 ML IV SCH ×5 (00:05→20:16)
[2020-07-16 00:41] LABS: ABG Base Excess -0.9 mmol/L; ABG HCO3 25 mmol/L (21-25); ABG Oxygen Saturation 71.2 % (94-97); ABG PCO2 49 mmHg (35-45); ABG PH 7.32 (7.35-7.45); ABG TCO2 27 mmol/L (19-24)
[2020-07-16 00:50] LABS: ABG PO2 40 mmHg (83-108); Allen Test Performed? no
[2020-07-16] MEDS: INSULIN ASPART (NovoLOG) 100 UNIT/ML VIAL SQ SCH ×4 (03:48→18:42)
[2020-07-16 04:47] LABS: Allen Test Performed? Yes
[2020-07-16 04:57] LABS: ABG Base Excess -1.3 mmol/L; ABG HCO3 26 mmol/L (21-25); ABG PCO2 55 mmHg (35-45); ABG PH 7.28 (7.35-7.45); ABG PO2 63 mmHg (83-108); ABG TCO2 27 mmol/L (19-24)
[2020-07-16] MEDS: DEXMEDETOMIDINE/0.9% NACL(PMX) 400 MCG in EMPTY BAG 1 BAG IV SCH ×4 (05:25→20:45)
[2020-07-16 05:44] LABS: Anisocytosis Slight; Basophils % (A) 1 %; Eosinophils # (A) 0.1 k/uL (0-0.7); Eosinophils % (A) 6 %; HCT 32.2 % (39.0-53.0); HGB 10.6 gm/dL (13.0-17.5); Hypochromasia Slight; Lymphocytes # (A) 0.3 k/uL (1.0-4.8); Lymphocytes % (A) 19 %; MCH 29.6 pg (25.0-35.0); MCHC 32.8 g/dL (31.0-37.0); MCV 90.3 fL (80.0-100.0); Mean Platelet Volume 11.8; Monocytes # (A) 0.1 k/uL (0-1.0); Monocytes % (A) 6 %; Neutrophils # (A) 1.1 k/uL (1.3-7.7); Neutrophils % (A) 65 %; Platelet Count 31 k/uL (150-450); Poikilocytosis Slight; RBC 3.56 m/uL (4.30-5.90); RDW 16.2 % (11.5-15.5); WBC 1.7 k/uL (3.8-10.6)
[2020-07-16 06:05] LABS: D-Dimer 10.9 mg/L FEU (<0.60)
[2020-07-16 07:13] LABS: Glucose,Whole Blood 135 mg/dL (75-99)
[2020-07-16] MEDS: LEVOTHYROXINE 75 MCG TAB PO SCH (07:14)
[2020-07-16] MEDS: INSULIN DETEMIR (LEVEMIR) 100 UNIT/ML SYR SQ SCH ×2 (07:14→20:46)
[2020-07-16 07:25] LABS: Albumin 2.2 g/dL (3.5-5.0); Calcium 8.4 mg/dL (8.4-10.2); Magnesium 2.7 mg/dL (1.6-2.3); Potassium 4.6 mmol/L (3.5-5.1); Total Bilirubin 0.5 mg/dL (0.2-1.3); Total Protein 4.5 g/dL (6.3-8.2)
[2020-07-16 07:41] LABS: C Reactive Protein 20.5 mg/dL (<1.0)
[2020-07-16] MEDS: CEFEPIME 2 GM in SODIUM CHLORIDE 0.9% 100 ML IVPB SCH ×2 (08:07→20:46)
[2020-07-16] MEDS: CHOLECALCIFEROL 25 MCG (1000 IU) TABLET PO SCH (08:08)
[2020-07-16] MEDS: ASCORBIC ACID 500 MG TAB PO SCH (08:08)
[2020-07-16] MEDS: ZINC SULFATE 220 MG CAP PO SCH (08:08)
[2020-07-16] MEDS: MULTIVITAMINS, THERA 1 EACH TAB PO SCH (08:08)
[2020-07-16] MEDS: SENNOSIDES-DOCUSATE SODIUM 1 EACH TAB PO SCH (08:09)
[2020-07-16] MEDS: PANTOPRAZOLE 40 MG/10 ML VIAL IVP SCH (08:09)
[2020-07-16] MEDS: CHLORHEXIDINE GLUCONATE 15 ML CUP MUCOUS MEM SCH ×2 (08:09→20:46)
[2020-07-16] MEDS: polyethylene glycoL 3350 17 GM POWD.PACK PO SCH (08:09)
[2020-07-16] MEDS: predniSONE 20 MG TAB PO SCH (08:09)
[2020-07-16] MEDS: amLODIPine 10 MG TAB PO SCH (08:09)
[2020-07-16] MEDS: METOPROLOL TARTRATE 25 MG TAB PO SCH ×2 (08:10→20:46)
--- NOTE | 2020-07-16 08:32 | XR ---
EXAMINATION TYPE: XR chest 1V portable DATE OF EXAM: 07/16/2020 COMPARISON: Chest x-ray 07/15/2020 HISTORY: Covid pneumonia TECHNIQUE: Single frontal view of the chest is obtained. FINDINGS: There is been interval development of the right apical pneumothorax. Tracheostomy tube, le ft subclavian central venous catheter, bilateral airspace disease again noted, patient is post median sternotomy. Cardiac mediastinal silhouette shows a similar appearance. Patient is rotated. No eviden t effusion. IMPRESSION: Interval right apical pneumothorax. Results relayed telephonically to the referring clin ician.
[2020-07-16] MEDS: NOREPINEPHRINE 8 MG in SODIUM CHLORIDE 0.9% 250 ML IV SCH ×3 (09:11→20:45)
[2020-07-16] MEDS ORDERED: LIDOCAINE 1% INJ 10MG/ML (20 ML MDV) ONE (09:14)
[2020-07-16] MEDS ORDERED: LIDOCAINE 1% INJ 10MG/ML (20 ML MDV) SQ ONE (09:14)
[2020-07-16] MEDS ORDERED: CISATRACURIUM 2 MG/ML 5 ML VIAL IV ONE ×3 (09:23→11:12)
[2020-07-16] MEDS: ALBUTEROL HFA INHALER INHALATION SCH ×4 (09:45→20:46)
[2020-07-16 10:59] LABS: ABG HCO3 25 mmol/L (21-25); ABG Oxygen Saturation 89.1 % (94-97); ABG PO2 76 mmHg (83-108); ABG TCO2 28 mmol/L (19-24)
--- NOTE | 2020-07-16 10:59 | XR ---
EXAMINATION TYPE: XR chest 1V portable DATE OF EXAM: 07/16/2020 Comparison: Earlier today Clinical History: 80-year-old male covid Findings: Tracheostomy cannula. Median sternotomy wires and post-CABG clips. Left subclavian CVC tip near the c avoatrial junction. Interval placement of right apically directed chest tube. There is decrease in si ze of the patient's right-sided pneumothorax now small at the apex measuring 7 mm versus 4.1 cm, prev iously. Bilateral groundglass opacities persist. Impression: Interval placement of right-sided chest tube now with a small residual right apical pneumothorax kvng uring 7 mm versus 4.1 cm, previously. Bilateral groundglass infiltrates are otherwise unchanged.
[2020-07-16 11:02] LABS: ABG PCO2 89 mmHg (35-45); ABG PH 7.06 (7.35-7.45)
[2020-07-16] MEDS: CISATRACURIUM 200 MG in SODIUM CHLORIDE 0.9% 180 ML IV SCH (11:11)
--- NOTE | 2020-07-16 11:37 | P.PN ---
Subjective Progress Note Date: 07/16/20 CHIEF COMPLAINT: Respiratory failure HISTORY OF PRESENT ILLNESS: Patient remains in the ICU and is intubated and sedated. He is status post tracheostomy and PEG tube placement. Patient is tolerating tube feedings. Patient had chest x-ray with right apical pneumothorax this morning. He is now status post right chest tube placement. He is currently off of Lovenox due to his thrombocytopenia and bleeding at the tracheostomy site. Afebrile WBC 1.7 hemoglobin 10.6 platelets 31 PHYSICAL EXAM: VITAL SIGNS: Reviewed. GENERAL: Well-developed in no acute distress. HEENT: No sclera icterus. Extraocular movements grossly intact. Moist buccal mucosa. Head is atraumatic, normocephalic. Trach site clean dry and intact ABDOMEN: Soft. Nondistended. Nontender. PEG tube site clean dry and intact NEUROLOGIC: Intubated and sedated ASSESSMENT: 1. Acute hypoxic respiratory failure with prolonged respiratory failure status post tracheostomy placement 2. Covid 19 pneumonia 3. Severe protein calorie malnutrition status post PEG tube placement 4. Thrombocytopenia 5. Right-sided pneumothorax status post chest tube placement PLAN: -Continue ICU management -Continue supportive care -Continue tube feedings Physician [place] note has been reviewed by physician. Signing provider agrees with the documented findings, assessment, and plan of care. Objective - Vital Signs Vital signs: Vital Signs Temp 97.2 F L 07/16/20 04:00 Pulse 100 07/16/20 07:00 Resp 13 07/16/20 07:00 BP 138/81 07/15/20 21:30 Pulse Ox 72 L 07/16/20 07:00 Intake & Output 07/15/20 07/16/20 07/16/20 18:59 06:59 18:59 Intake Total 2949.722 5842.196 136.273 Output Total 1915 710 80 Balance -280.279 698.196 56.273 Weight 143 kg Intake: IV 353 275 25 Cefepime 2 gm In Sodium 100 Chloride 0.9% 100 ml @ 25 mls/hr IVPB Q12HR [facility] Rx #:[id number] Pressure bag 63 55 5 Sodium Chloride 0.9% 1, 190 220 20 000 ml @ 20 mls/hr IV . Q24H [facility] Rx#:[id number] Intake, IV Titration 407.721 397.196 45.273 Amount Dexmedetomidine/0.9% NaCl 40.775 (Pmx) 400 mcg In Empty Bag 1 bag @ Titrate IV . Q0M [facility] Rx#:[id number] Dexmedetomidine/0.9% NaCl 66.946 197.196 45.273 (Pmx) 400 mcg In Empty Bag 1 bag @ Titrate IV . Q0M [facility] Rx#:[id number] Norepinephrine 8 mg In 0 Sodium Chloride 0.9% 250 ml @ 0.05 MCG/KG/MIN 13. 061 mls/hr IV .[id number] [facility] Rx#:[id number] fentaNYL (PF). 1,000 mcg 300.000 200 In Sodium Chloride 0.9% 80 ml @ Per Protocol IV . Q0M [facility] Rx#:[id number] Tube Feeding 784 646 66 Other 90 90 Output: Urine 1015 710 80 Stool 900 Other: Voiding Method Indwelling Catheter Indwelling Catheter ABP, PAP, CO, CI - Last Documented Arterial Blood Pressure 123/66 - Labs CBC & Chem 7: 07/16/20 04:45 07/16/20 04:45 Labs: Abnormal Lab Results - Last 24 Hours (Table) 07/15/20 07/15/20 07/15/20 Range/Units 12:32 14:17 16:16 WBC (3.8-10.6) k/uL RBC (4.30-5.90) m/uL Hgb (13.0-17.5) gm/dL Hct (39.0-53.0) % RDW (11.5-15.5) % Plt Count (150-450) k/uL Neutrophils # (1.3-7.7) k/uL Lymphocytes # (1.0-4.8) k/uL Fibrinogen (200-500) mg/dL D-Dimer (<0.60) mg/L FEU ABG pH 7.32 L (7.35-7.45) ABG pCO2 49 H (35-45) mmHg ABG pO2 46 L* 59 L* (83-108) mmHg ABG HCO3 (21-25) mmol/L ABG Total CO2 26 H 27 H (19-24) mmol/L ABG O2 Saturation 79.6 L 88.3 L (94-97) % Sodium (137-145) mmol/L Chloride (98-107) mmol/L BUN (9-20) mg/dL Creatinine (0.66-1.25) mg/dL Glucose (74-99) mg/dL POC Glucose (mg/dL) 192 H (75-99) mg/dL Magnesium (1.6-2.3) mg/dL AST (17-59) U/L Lactate Dehydrogenase (313-618) U/L Creatine Kinase (55-170) U/L C-Reactive Protein (<1.0) mg/dL Total Protein (6.3-8.2) g/dL Albumin (3.5-5.0) g/dL 07/15/20 07/15/20 07/16/20 Range/Units 17:10 23:47 00:37 WBC (3.8-10.6) k/uL RBC (4.30-5.90) m/uL Hgb (13.0-17.5) gm/dL Hct (39.0-53.0) % RDW (11.5-15.5) % Plt Count (150-450) k/uL Neutrophils # (1.3-7.7) k/uL Lymphocytes # (1.0-4.8) k/uL Fibrinogen (200-500) mg/dL D-Dimer (<0.60) mg/L FEU ABG pH 7.32 L (7.35-7.45) ABG pCO2 49 H (35-45) mmHg ABG pO2 40 L* (83-108) mmHg ABG HCO3 (21-25) mmol/L ABG Total CO2 27 H (19-24) mmol/L ABG O2 Saturation 71.2 L (94-97) % Sodium (137-145) mmol/L Chloride (98-107) mmol/L BUN (9-20) mg/dL Creatinine (0.66-1.25) mg/dL Glucose (74-99) mg/dL POC Glucose (mg/dL) 154 H 144 H (75-99) mg/dL Magnesium (1.6-2.3) mg/dL AST (17-59) U/L Lactate Dehydrogenase (313-618) U/L Creatine Kinase (55-170) U/L C-Reactive Protein (<1.0) mg/dL Total Protein (6.3-8.2) g/dL Albumin (3.5-5.0) g/dL 07/16/20 07/16/20 07/16/20 Range/Units 04:33 04:45 04:45 WBC 1.7 L (3.8-10.6) k/uL RBC 3.56 L (4.30-5.90) m/uL Hgb 10.6 L (13.0-17.5) gm/dL Hct 32.2 L (39.0-53.0) % RDW 16.2 H (11.5-15.5) % Plt Count 31 L (150-450) k/uL Neutrophils # 1.1 L (1.3-7.7) k/uL Lymphocytes # 0.3 L (1.0-4.8) k/uL Fibrinogen 601 H (200-500) mg/dL D-Dimer 10.90 H (<0.60) mg/L FEU ABG pH 7.28 L (7.35-7.45) ABG pCO2 55 H (35-45) mmHg ABG pO2 63 L (83-108) mmHg ABG HCO3 26 H (21-25) mmol/L ABG Total CO2 27 H (19-24) mmol/L ABG O2 Saturation 90.0 L (94-97) % Sodium (137-145) mmol/L Chloride (98-107) mmol/L BUN (9-20) mg/dL Creatinine (0.66-1.25) mg/dL Glucose (74-99) mg/dL POC Glucose (mg/dL) (75-99) mg/dL Magnesium (1.6-2.3) mg/dL AST (17-59) U/L Lactate Dehydrogenase (313-618) U/L Creatine Kinase (55-170) U/L C-Reactive Protein (<1.0) mg/dL Total Protein (6.3-8.2) g/dL Albumin (3.5-5.0) g/dL 07/16/20 07/16/20 07/16/20 Range/Units 04:45 07:12 10:51 WBC (3.8-10.6) k/uL RBC (4.30-5.90) m/uL Hgb (13.0-17.5) gm/dL Hct (39.0-53.0) % RDW (11.5-15.5) % Plt Count (150-450) k/uL Neutrophils # (1.3-7.7) k/uL Lymphocytes # (1.0-4.8) k/uL Fibrinogen (200-500) mg/dL D-Dimer (<0.60) mg/L FEU ABG pH 7.06 L* (7.35-7.45) ABG pCO2 89 H* (35-45) mmHg ABG pO2 76 L (83-108) mmHg ABG HCO3 (21-25) mmol/L ABG Total CO2 28 H (19-24) mmol/L ABG O2 Saturation 89.1 L (94-97) % Sodium 146 H (137-145) mmol/L Chloride 116 H (98-107) mmol/L BUN 76 H (9-20) mg/dL Creatinine 1.64 H (0.66-1.25) mg/dL Glucose 126 H (74-99) mg/dL POC Glucose (mg/dL) 135 H (75-99) mg/dL Magnesium 2.7 H (1.6-2.3) mg/dL AST 129 H (17-59) U/L Lactate Dehydrogenase 2071 H (313-618) U/L Creatine Kinase 2753 H* (55-170) U/L C-Reactive Protein 20.5 H (<1.0) mg/dL Total Protein 4.5 L (6.3-8.2) g/dL Albumin 2.2 L (3.5-5.0) g/dL Microbiology - Last 24 Hours (Table) 07/12/20 17:39 Blood Culture - Preliminary Blood No Growth after 72 hours
[2020-07-16 11:47] LABS: Glucose,Whole Blood 182 mg/dL (75-99)
--- NOTE | 2020-07-16 11:56 | PCN ---
PROCEDURE NOTE OPERATIVE REPORT: Right-sided chest tube placement/right-sided tube thoracostomy. PREOPERATIVE DIAGNOSIS: Acute barotrauma with right-sided pneumothorax secondary to COVID-19 pneumonia and presently on high PEEP. POSTOPERATIVE DIAGNOSIS: Acute barotrauma with right-sided pneumothorax secondary to COVID-19 pneumonia and presently on high PEEP. ANESTHESIA USED: 10 mL of 1% lidocaine. DESCRIPTION OF PROCEDURE: The patient was placed in the supine position, the area of the right chest was prepared in a sterile fashion and drapes were applied. The area at the level of the 6th intercostal space and anterior axillary line was locally anesthetized and a 1 cm incision was made at that level. The subcutaneous tissue was dissected using the finger and using a forceps, until the pleural space was entered. A size 28 [place] tube was placed in the right the pleural cavity and it was pointed apically. Then the tube was secured using 2.0 Ethibond sutures. And it was connected to a Pleur-Evac. Chest x- ray postoperatively showed adequate placement of the chest tube, and there was no evidence of any immediate complications. Sterile dressing was applied. MMODL / IJN: [id number] /
--- NOTE | 2020-07-16 11:57 | P.PN ---
Subjective Progress Note Date: 07/16/20 Principal diagnosis: Acute hypoxic respiratory failure secondary to acute COVID-19 pneumonia, and ARDS. 10-year-old male, seen in the emergency department, on June 27. The patient came in complaining of weakness, fatigue, shortness of breath, chest congestion, and nonproductive cough. He's been sick for at least 2 weeks. He tells me he tested positive on Thursday but he actually may have tested positive on June 17. Currently, the patient's on 6 L nasal cannula. He is not receiving any IV fluids. He has a history of asthma, coronary artery disease, chest pain, angina, diabetes mellitus, hypertension, hyperlipidemia, osteoarthritis, pneumonia, hepatitis C, bursitis, and previous bypass grafting. The patient denies ever smoking cigarettes. Current lab data includes a white count 6.4, hematocrit 43.4, hemoglobin 14.7, and a platelet count of 186,000. PT, INR and PTT are normal. Sodium 135, potassium 4.3, chlorides 100, CO2 25, anion gap 10, BUN 28, creatinine 1.68. LDH is 730, C-reactive protein is 85.9. A d-dimer was not done. N-terminal proBNP was 522. A chest x-ray done in the emergency department shows bilateral patchy infiltrates, consistent with coronavirus pneumonia. Patient was reevaluated today on 06/30/2020, remains in the ICU, intubated and mechanically ventilated. Patient had an earlier ABG on PEEP of 15, assist control rate 24th, volume 450 FiO2 of 100, and it showed a pO2 of 53 pCO2 of 51 pH of 7.31, hence I increased the PEEP from 15 to 18. Repeat ABG is pending. Patient remains on propofol at 40 mcg/kg/m, Nimbex at 0.75, fentanyl at 0.25, and he is on enteral feeding. Patient received : 19 cocktail, and today we are adding TOCI/ACTEMRA. Chest x-ray continues to show bilateral interstitial opacities/interstitial infiltrates. Electrolytes are normal BUN is 36 creatinine is 1.58 LDH is 748 C-reactive protein is 144.8 WBC count is 13.0 hemoglobin is 12. D-dimer is 0.19 On 07/09/2020, I'm seeing this 80-year-old male patient in the intensive care unit and the patient is currently intubated on a mechanical ventilated because of a COVID 19 related pneumonia. The patient originally presented with hypoxic respiratory failure and his oxidation progressively got worse and the patient had to be intubated and placed on a mechanical ventilator. He is known to have chronic bronchial asthma, CAD, diabetes mellitus, hypertension, hyperlipidemia, osteoarthritis and hepatitis C. The patient is also has undergone previous coronary artery bypass surgery. The patient got intubated on 07/04/2020 and the patient has been intubated since. The patient is currently on assist control mode with a tidal volume of 450 and FiO2 of 50% with a PEEP of 16 and the rate of 28. The blood gases from today showing a pH of 7.41 with a pCO2 of 44 and pO2 of 96 and this is on FiO2 of 50%. The chest x-ray from today was noted. Chest x-ray showing diffuse breath and pulmonary infiltrates and orotracheal tube is in a good location. Blood gases was noted. The patient is currently sedated. The patient is currently on propofol which is running at 70 mg/kg per minute and fentanyl at 0.6 mcg/kg/h. The patient is receiving enteral feeding for nutritional support and the patient on vital high protein at 10 mL an hour. The patient is also Cleviprex drip for blood pressure control is currently running at 2 mg an hour. The patient is currently receiving IV Solu Medrol 60 mg every 6 hours. The patient is on Lovenox 40 mg subcu every 24 hours. The patient has received Levemir insulin 20 units twice a day along with a NovoLog 7 units every 6 hours and a scaling for both sugar control. He is also on Actos 30 mg orally on a daily basis. He has history of hypothyroidism on levothyroxine at 75 g by mouth daily. Inflammatory markers are elevated at 1224 LDH and CRP of 6.6. Renal function is stable. Rest of the electrolytes are stable. D-dimer is at 1.92. The peak airway pressures 37 anesthetic at a pressure of 31. Or 2020, patient is being seen for a follow-up visit Covid 19 Related Pneumonia with Secondary Respiratory Failure. The Plan Is to Proceed with a PEG and Tracheostomy Tube Insertion Today. This Morning, the Patient Is Sedated and the Patient Is Currently on Propofol Running at 70 Mics for Respiratory PER Minute and the Patient Is Also on Fentanyl at 0.6 Mitral Respiratory Hour. The Patient Remains off Paralytics. This Morning, He Is an Assist-Control at the Rate of 28 with a Tidal Volume of 450 and FiO2 of 50% with a PEEP of 14. Blood Gases from Today Shows a pH of 7.43 with a PCO2 of 44 and PO2 of 53. The Chest X-Ray from Today Is Showing lower lobe active pulmonary infiltrates. Post thoracotomy. ET tube is in a good location. NG tube is in a good location. The peak airway pressure 42 anesthetic pressures around 17. The patient has excessive respiratory secretions. The plan is to proceed with a tracheostomy tube insertion of PEG tube insertion today. The patient remains on Cleviprex throughout the night and the patient was taken off the Cleviprex earlier this morning. The patient remains on IV Solu-Medrol 60 mg every 6 hours. The patient is also on Lovenox subcutaneous 40 mg every 24 hours. The blood work from today shows an LDH level of 925 with a CRP level of 7.4 and metastatic 2.46. The patient is otherwise hemodynamically stable. He has developed some edema in his extremities and the patient is currently on Lasix 40 mg IV every 24 hours and this was started yesterday. He is receiving enteral feeding for nutritional support and the patient is currently on vital high protein which is currently off pending surgical procedure. 07/11/2020, the patient is post tracheostomy tube insertion and a PEG tube insertion as the patient is going to need prolonged respiratory care. At this point in time, he is an assist-control mode with a tidal volume of 400 and a PEEP of 12 and FiO2 of 50% and a rate of 20. The chest x-ray from today shows that the tracheostomy tube is in a good location. Some limited infiltration of the lung bases. There is adequate aeration of the upper part of the lungs bilaterally. The blood gases from today shows a pH of 7.43 with a pCO2 of 44 and pO2 of 62. The patient was encountering elevated airway pressures yesterday the peak pressure was elevated and I thought this was associated related to secretions. The peak airway pressure today is 26 post tracheostomy tube insertion. The patient is on sedation. The patient is on propofol at 70 mcg/kg per minute and the patient is also on fentanyl and 0.2 mcg/kg/h. The patient is not receiving any paralytics for now. No feeding for now post extubation insertion. No other issues for now. He remains off Cleviprex. He is hemodynamically stable. Inflammatory markers were essentially dropping on earlier evaluation and I've also started the patient on Lasix. On today's evaluation, the LDH is 1073, slightly higher and his CRP is at 15, slightly higher, his d-dimer is at 1.77, slightly lower. As for the fluid balance, the patient is -3 L over the past 24 hours and the patient was given diuretics and the patient is receiving Lasix 40 mg IV every 24 hours. He is hemodynamically stable. The plan for today is to give the patient lower sedation and try to evaluate his mental status. The plan is to gradually wean off his propofol. 07/12/2020 the patient is tracheostomy tube insertion of PEG tube insertion. Note that immediately post tracheostomy tube insertion, the airway pressures dropped considerably. Meanwhile, the patient remains on a mechanical ventilator on today's evaluation the patient is an assist-control mode with a tidal volume of 400 and a fever of 12 with an FiO2 of 50% and a rate of 20. This is an assist-control mode, volume cycle. He remains sedated. He is receiving propofol at 70 mcg/kg per minute. Patient is also on fentanyl at 3.5 mcg/kg/h. He is on no paralytics. The blood gases showing a pH of 7.42 with a pCO2 of 47 and pO2 of 53. His current pulse ox on a monitor is in the order of 84-87%. The chest x-ray is showing bilateral pulmonary infiltrates consistent with ARDS. He has a tracheostomy tube and the position is adequate. He has also previous thoracotomy scar on the chest x-ray. He has an LDH of 1077 with a CRP of 62. The d-dimer is currently at 1.22. He remains on a prednisone 40 mg by mouth d aily and this which was done yesterday as the patient was taken off IV Solu- Medrol. He is on Levemir insulin 20 units today twice a day and the patient is also on NovoLog 7 units every 6 hours and this line scattered coverage. The patient is also receiving Lasix 40 mg every 24 hours. The fluid balance has been negative and his continues to be negative of 1.1 L over the past 24 hours. He is off Cleviprex for now and his blood pressure is stable. No fever. The sputum is positive for gram-negative bacillus and the patient was having excessive amount of rest or secretions. Suggest covering the patient with antibiotics I'm going to start him on cefepime 2 g every 12 hours pending further cultures from the sputum. On today's evaluation, the patient seemed to be quite asynchronous the mechanical ventilator while being on a volume cycled. ventilator changes were done. 2020, the patient remains critically ill, on a mechanical ventilator , post tracheostomy tube insertion. In terms of sedation, the patient remains on a combination of propofol and fentanyl. Propofol is running at 70 mcg/kg/m visit fentanyl is 3.5 mcg/kg/h. He is off paralytics. He is on assist control mode and he was switched to pressure control mode of ventilation because of Lasix daily and double stacking. He is currently on a pressure control of 18 with a PEEP of 16 and an inspiratory time of 0.9 with a rate of 20 and FiO2 of 90%. His current blood gases showed a pH of 7.44 with a pCO2 of 34 and pO2 of 55. Chest x-ray is showing bibasilar pulmonary infiltrates slightly worse on the left. Tracheostomy tube is in a good location. His current pulse ox on the monitor is 88%. The peak static pressures are 36 and 35 respectively. His chest x-ray showing some limited infiltration left lung baseairfit noted yesterday, the patient was getting more febrile and he was becoming also hypotensive. His sputum was growing gram-negative bacillus bar turner to be Klebsiella. He was given a total of 2 L of IV fluid bolus and the patient was started on IV cefepime as an empiric antibiotic coverage. His pro-calcitonin level is currently at 0.26. He is currently on IV cefepime. He is also running pressors with norepinephrine infusion at 0.02 mcg/kg per minute.Fluid balance over the past 24 hours has been 2.1 L. The patient currently is quite successfully mechanical ventilator. He has a fecal management system. He is receiving enteral feeding for nutritional support and is currently on vital 8. At the rate of 60 mL an hour. No abdominal distention. He is stooling. He has been on Levemir insulin and 20 units twice a day and he is also on NovoLog 7 units every 6 hours and a sliding scale coverage. 07/14/2020, the patient has been successfully taken off the propofol because of increased triglycerides within the system and the patient was switched to a combination of Precedex and fentanyl. Precedex is currently running at 2.5 mcg/kg per minute and fentanyl is running at 1 g subcu to gram per minute. The patient is currently on a pressure control mode of ventilation with a pressure control of 18, PEEP of 16, FiO2 is at 100% with a rate of 20. Blood gas today is showing a pH of 7.31 with a pCO2 of 53 and pO2 of 52. The chest x-ray is showing diffuse bilateral pulmonary airspace disease and infiltrates in the mid and lower lung carson bilaterally. The patient has a Bivona tracheostomy tube in place. Note that the airspace disease probably worse compared to yesterday. Note that the patient was acting septic yesterday. Further cultures revealed Klebsiella in his sputum and the patient is currently on IV antibiotics with IV cefepime and vancomycin. The blood cultures have been otherwise negative.. With the initiation of the antibiotics, he became hemodynamically improved. He is currently on a minimal amount of norepinephrine infusion at 0.02 mcg/kg per minute. His pro-calcitonin level was at 0.26. The patient is in a positive fluid balance. Creatinine is at 1.3. His LDH level is 1694, his CRP level is at 4, his d-dimer is at 1.48. He was febrile yesterday and currently he is afebrile. He is receiving enteral feeding for nutritional support and is currently on vital 8. At the rate of 60 mL an hour. No abdominal distention. He is stooling. He has been on Levemir insulin and 20 units twice a day and he is also on NovoLog 7 units every 6 hours and a sliding scale coverage. This morning at around 6 AM, the patient slept his cardiac rhythm into atrial fibrillation. There is a new onset A. fib. His previous echocardiogram from 2019 was within normal limits. No rapid ventricular response for now. The patient's rate is controlled. His atrial fibrillation occurred while the patient became briefly off sedation this morning and the patient is still in atrial fibrillation for now. His platelet count is down to 38 and his HIV ant ibodies came back negative. DIC profile is showing some mild elevation of the INR and a PT and the PTT. Fibrinogen level is at 368. 07/15/2020, the patient remains on a mechanical ventilator, sedated and he is off paralytics. He is on a combination of Precedex running at 0.5 Harry respiratory kilo gram per minute and fentanyl is running at 2 mcg/kg/h. He remains on a pressure control mode of mechanical ventilation. Pressure control currently is at a pressure of 18, PEEP is at 20 with an FiO2 of 1% and a rate of 20. His blood gases showed a pH of 7.36 with a pCO2 of 44 and pO2 of 57. Chest x-ray showing diffuse bilateral pulmonary infiltrates consistent with ARDS. His peak air pressures 38 anesthetic pressures 37. The family either markers are still quite elevated. His LDH level is at 2055 and the CRP level is at 22.8. He also has some mild elevation of CPK at 927. His net fluid balance is +2 59 mL over the past 24 hours. Note that the patient was also getting septic yes terday. Suspected a superimposed pneumonia with Klebsiella. Based on that, the patient was covered with cefepime IV 2 g every 12 hours. He was also on pressors and the patient was requiring low dose norepinephrine infusion that was weaned off vent was discontinued and currently is maintaining his own blood pressure. Blood cultures have been negative. His pro-calcitonin level from few days ago was low at 0.26. In terms of his renal function, creatinine is improving and is currently down to 1.2. His platelet counts have been declining significantly and DIC was suspected. The DIC profile was sent and the patient has a fibrinogen level of 607. Rest of the coagulation profile is still pending for now. Follow-up platelet count from today still pending. Coagulation profile is also pending. D-dimer today is at 5.41. The patient is currently off anticoagulation. His cardiac rhythm is atrial fibrillation which is well- controlled. He has a normal left ventricle ejection fraction. He is receiving vital high protein at the rate of 55 mL an hour. He is stooling and he has a liquidy bowel movement, and stool for C. diff will be checked. No bleeding complications. He is deeply sedated with the current combination of Precedex and fentanyl. He does grimace to deep painful stimulation. No purposeful movement. Does not follow any commands. No other significant events overnight. In the family. Insisted on ivermectin use and this was provided to the patient. Only 1 dose was given. The family was very adamant on this patient getting the medication. We were able to give the medication yesterday and this was given after a lengthy discussion with the family that this was not our recommendations and it also goes against CDC recommendations. Patient was evaluated today on 07/06/2020, patient remains intubated and mechanically ventilated. Patient is status post tracheostomy, however as soon as we evaluate his chest x-ray this morning there was a good 20% right-sided pneumothorax, IBC the patient had barotrauma. He is on PEEP of 20 and he is on a pressure control mode of mechanical ventilation with a pressure control of 18 TI of 0.90 respiratory rate of 20. Shortly after evaluating the chest x-ray, I went ahead and placed a right sided chest tube and there was significant resolution of the right-sided pneumothorax, and the tube was in the right apex. Connected to Pleur-evac. And patient remains on fentanyl is also on Precedex, his oxygenation remains marginal in spite of a high PEEP and high FiO2, hence I recommended placing the patient on Nimbex again. ABG post intubation showed a pO2 of 76 pCO2 of 89 pH of 7.06. C-reactive protein is 20.5 CPK is 2753 and LDH is 2071. X-rays are normal renal profile showed a BUN of 76 creatinine 1.64. Earlier ABG showed a pO2 of 63 pCO2 of 55 pH of 7.28 and this was on the percent FiO2 and PEEP of 20. Objective - Vital Signs Vital signs: Vital Signs Temp 97.2 F L 07/16/20 04:00 Pulse 100 07/16/20 07:00 Resp 13 07/16/20 07:00 BP 138/81 07/15/20 21:30 Pulse Ox 72 L 07/16/20 07:00 Intake & Output 07/15/20 07/16/20 07/16/20 18:59 06:59 18:59 Intake Total 2814.609 3789.196 161.545 Output Total 1915 710 80 Balance -280.279 698.196 81.545 Weight 143 kg Intake: IV 353 275 25 Cefepime 2 gm In Sodium 100 Chloride 0.9% 100 ml @ 25 mls/hr IVPB Q12HR [facility] Rx #:[id number] Pressure bag 63 55 5 Sodium Chloride 0.9% 1, 190 220 20 000 ml @ 20 mls/hr IV . Q24H [facility] Rx#:[id number] Intake, IV Titration 407.721 397.196 70.545 Amount Dexmedetomidine/0.9% NaCl 40.775 (Pmx) 400 mcg In Empty Bag 1 bag @ Titrate IV . Q0M [facility] Rx#:[id number] Dexmedetomidine/0.9% NaCl 66.946 197.196 45.273 (Pmx) 400 mcg In Empty Bag 1 bag @ Titrate IV . Q0M [facility] Rx#:[id number] Norepinephrine 8 mg In 0 Sodium Chloride 0.9% 250 ml @ 0.05 MCG/KG/MIN 13. 061 mls/hr IV .[id number] [facility] Rx#:[id number] Norepinephrine 8 mg In 25.272 Sodium Chloride 0.9% 250 ml @ 0.05 MCG/KG/MIN 13. 835 mls/hr IV .[id number] [facility] Rx#:[id number] fentaNYL (PF). 1,000 mcg 300.000 200 In Sodium Chloride 0.9% 80 ml @ Per Protocol IV . Q0M [facility] Rx#:[id number] Tube Feeding 784 646 66 Other 90 90 Output: Urine 1015 710 80 Stool 900 Other: Voiding Method Indwelling Catheter Indwelling Catheter ABP, PAP, CO, CI - Last Documented Arterial Blood Pressure 123/66 - Exam Physical Exam: Revealed a 80-year-old white male intubated and mechanically ventilated, patient has a tracheostomy tube in place. Tracheostomy seems to be intact. Head: Atraumatic, normocephalic. Tracheostomy is intact. HEENT:[Neck is supple.] [No neck masses.] [No thyromegaly.] [No JVD.] No oozing or bleeding around the tracheostomy site Chest: Symmetrical chest expansion, crackles at the bases bilaterally. Sided chest tube is noted. In proper position.] Cardiac Exam: Distant S1 and S2, no S3 gallop. No murmur Abdomen: [Obese, Soft, nontender, no megaly, no rebound, no guarding, normal bowel sounds.] Extremities: [No clubbing, trace of bipedal edema, no cyanosis.] Pulses bilaterally. Neurological Exam: Could not assess, patient is sedated, and he was given Nimbex for profound hypoxemia and hypercapnia requiring maintaining the patient on high PEEP of 20, Psychiatric: Could not be assessed. Patient is sedated and paralyzed now. Skin: No rashes. - Labs CBC & Chem 7: 07/16/20 04:45 07/16/20 04:45 Labs: Abnormal Lab Results - Last 24 Hours (Table) 07/15/20 07/15/20 07/15/20 Range/Units 12:32 14:17 16:16 WBC (3.8-10.6) k/uL RBC (4.30-5.90) m/uL Hgb (13.0-17.5) gm/dL Hct (39.0-53.0) % RDW (11.5-15.5) % Plt Count (150-450) k/uL Neutrophils # (1.3-7.7) k/uL Lymphocytes # (1.0-4.8) k/uL Fibrinogen (200-500) mg/dL D-Dimer (<0.60) mg/L FEU ABG pH 7.32 L (7.35-7.45) ABG pCO2 49 H (35-45) mmHg ABG pO2 46 L* 59 L* (83-108) mmHg ABG HCO3 (21-25) mmol/L ABG Total CO2 26 H 27 H (19-24) mmol/L ABG O2 Saturation 79.6 L 88.3 L (94-97) % Sodium (137-145) mmol/L Chloride (98-107) mmol/L BUN (9-20) mg/dL Creatinine (0.66-1.25) mg/dL Glucose (74-99) mg/dL POC Glucose (mg/dL) 192 H (75-99) mg/dL Magnesium (1.6-2.3) mg/dL AST (17-59) U/L Lactate Dehydrogenase (313-618) U/L Creatine Kinase (55-170) U/L C-Reactive Protein (<1.0) mg/dL Total Protein (6.3-8.2) g/dL Albumin (3.5-5.0) g/dL 07/15/20 07/15/20 07/16/20 Range/Units 17:10 23:47 00:37 WBC (3.8-10.6) k/uL RBC (4.30-5.90) m/uL Hgb (13.0-17.5) gm/dL Hct (39.0-53.0) % RDW (11.5-15.5) % Plt Count (150-450) k/uL Neutrophils # (1.3-7.7) k/uL Lymphocytes # (1.0-4.8) k/uL Fibrinogen (200-500) mg/dL D-Dimer (<0.60) mg/L FEU ABG pH 7.32 L (7.35-7.45) ABG pCO2 49 H (35-45) mmHg ABG pO2 40 L* (83-108) mmHg ABG HCO3 (21-25) mmol/L ABG Total CO2 27 H (19-24) mmol/L ABG O2 Saturation 71.2 L (94-97) % Sodium (137-145) mmol/L Chloride (98-107) mmol/L BUN (9-20) mg/dL Creatinine (0.66-1.25) mg/dL Glucose (74-99) mg/dL POC Glucose (mg/dL) 154 H 144 H (75-99) mg/dL Magnesium (1.6-2.3) mg/dL AST (17-59) U/L Lactate Dehydrogenase (313-618) U/L Creatine Kinase (55-170) U/L C-Reactive Protein (<1.0) mg/dL Total Protein (6.3-8.2) g/dL Albumin (3.5-5.0) g/dL 07/16/20 07/16/20 07/16/20 Range/Units 04:33 04:45 04:45 WBC 1.7 L (3.8-10.6) k/uL RBC 3.56 L (4.30-5.90) m/uL Hgb 10.6 L (13.0-17.5) gm/dL Hct 32.2 L (39.0-53.0) % RDW 16.2 H (11.5-15.5) % Plt Count 31 L (150-450) k/uL Neutrophils # 1.1 L (1.3-7.7) k/uL Lymphocytes # 0.3 L (1.0-4.8) k/uL Fibrinogen 601 H (200-500) mg/dL D-Dimer 10.90 H (<0.60) mg/L FEU ABG pH 7.28 L (7.35-7.45) ABG pCO2 55 H (35-45) mmHg ABG pO2 63 L (83-108) mmHg ABG HCO3 26 H (21-25) mmol/L ABG Total CO2 27 H (19-24) mmol/L ABG O2 Saturation 90.0 L (94-97) % Sodium (137-145) mmol/L Chloride (98-107) mmol/L BUN (9-20) mg/dL Creatinine (0.66-1.25) mg/dL Glucose (74-99) mg/dL POC Glucose (mg/dL) (75-99) mg/dL Magnesium (1.6-2.3) mg/dL AST (17-59) U/L Lactate Dehydrogenase (313-618) U/L Creatine Kinase (55-170) U/L C-Reactive Protein (<1.0) mg/dL Total Protein (6.3-8.2) g/dL Albumin (3.5-5.0) g/dL 07/16/20 07/16/20 07/16/20 Range/Units 04:45 07:12 10:51 WBC (3.8-10.6) k/uL RBC (4.30-5.90) m/uL Hgb (13.0-17.5) gm/dL Hct (39.0-53.0) % RDW (11.5-15.5) % Plt Count (150-450) k/uL Neutrophils # (1.3-7.7) k/uL Lymphocytes # (1.0-4.8) k/uL Fibrinogen (200-500) mg/dL D-Dimer (<0.60) mg/L FEU ABG pH 7.06 L* (7.35-7.45) ABG pCO2 89 H* (35-45) mmHg ABG pO2 76 L (83-108) mmHg ABG HCO3 (21-25) mmol/L ABG Total CO2 28 H (19-24) mmol/L ABG O2 Saturation 89.1 L (94-97) % Sodium 146 H (137-145) mmol/L Chloride 116 H (98-107) mmol/L BUN 76 H (9-20) mg/dL Creatinine 1.64 H (0.66-1.25) mg/dL Glucose 126 H (74-99) mg/dL POC Glucose (mg/dL) 135 H (75-99) mg/dL Magnesium 2.7 H (1.6-2.3) mg/dL AST 129 H (17-59) U/L Lactate Dehydrogenase 2071 H (313-618) U/L Creatine Kinase 2753 H* (55-170) U/L C-Reactive Protein 20.5 H (<1.0) mg/dL Total Protein 4.5 L (6.3-8.2) g/dL Albumin 2.2 L (3.5-5.0) g/dL Microbiology - Last 24 Hours (Table) 07/12/20 17:39 Blood Culture - Preliminary Blood No Growth after 72 hours Assessment and Plan Assessment: Impression: Acute hypoxic respiratory failure secondary to acute COVID-19 pneumonia and ARDS. Patient received convalescent plasma and toci Suspect superimposed Klebsiella pneumonia, remains on cefepime. Right sided pneumothorax requiring chest tube placement/this is secondary to barotrauma. Status post right sided chest tube placement for pneumothorax07/16/2020. History of hepatitis C. Benign essential hypertension. Type 2 diabetes. History of hypothyroidism. Obesity, BMI of 44. Degenerative joint disease. Thrombocytopenia Chronic atrial fibrillation. Could not anticoagulate because of his underlying thrombocytopenia. Recommendation: Continue ventilatory support. Continue chest tube to suction/pleural VAC. Continue hemodynamic support. Continue enteral feeding. Continue high PEEP. Continue antibiotics/cefepime. Discontinue any medication that may induce thrombocytopenia Continue feeding via PEG tube. Continue tracheostomy care. Continue Levemir insulin. And Accu-Cheks. Continue GI prophylaxis. Prognosis again is extremely poor and guarded. Physical care time is over 30 minutes not including the time spent on procedures/right-sided tube thoracostomy. Time with Patient: Greater than 30
--- NOTE | 2020-07-16 13:16 | P.PN ---
Subjective Progress Note Date: 07/16/20 HISTORY OF PRESENT ILLNESS This is a 80-year-old male patient of Dr. 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 Patient states that he has had symptoms for 2 weeks which include body aches, shortness of breath coming foggy thinking. He denies any nausea, vomiting or diarrhea. He states he has had sputum production. He denies any lower extremity edema. Patient does not have home oxygen. Patient presented to [facility] emergency center for evaluation. Chest x-ray reveals bibasilar patchy opacities consistent with multifocal infection. No pleural effusions or pneumothorax. Temperature 100.1, heart rate 75, respiratory rate 24, blood pressure 125/63 and pulse ox 83% on room air. EKG was a sinus rhythm at 66 bpm. CBC was unremarkable except for lymphocytosis of 0.5. INR 1.0. Sodium 135, BUN 28 creatinine 1.68. Blood sugar 202. Lactic acid 1.6. Liver function tests were normal. LDH 730. C- reactive protein and a 5.9. ProBNP 522. 4/2: Patient is seen today on the observation unit as an overflow. Pulse ox is 84% on 15 L hyponasal cannula and nonrebreather. Patient seems to have more shortness of breath today and also complains of wheezing. No significant cough production. No fever or chills. No chest pain. WBC 11.2, hemoglobin 14.8, platelet count 233. Repeat chest x-ray reveals findings consistent with pneumonia. Pro-calcitonin 0.12. Blood sugars running in the 200s. Patient to be moved to the intensive care unit. 06/30: Patient declined significantly in the afternoon yesterday ended up on mechanical ventilation, he been sedated currently his marker are still quite bit high. Patient still required high demand O2 along with high PEEP of 15-20 to keep his pulse ox at the margin of 90 percentile. His blood sugars mildly elevated and still been managed on insulin, white blood cell is up to 13,000 today, his blood gas shows pO2 of 653 only. CO2 of 27 and pH of 7.31 creatinine has slightly improved since yesterday he C-reactive protein is up to 144 and LDH of 748. 4/4: Patient is still on mechanical ventilation is FiO2 is down to 70% still on PEEP of 18 I had long discussion with the and update her on with outpatient patient's condition still guarded this point his prognosis still not good but he has slight improvement compared to yesterday, his kidney function has improved slightly bit compared to yesterday as well. 07/02: Patient remains in the ICU. Patient is intubated and on mechanical ventilation with tidall volume 450,, FiO2 60%, PEEP of 18 which is improved from yesterday. He is pulse oxing 92-95%. He has been afebrile, heart rate in the 40s, respiratory rate 28, blood pressure 148/67. color television console monitor is sinus bradycardia. Repeat lab work reveals WBC 12.4, hemoglobin 13.1, platelet count 266. Sed rate 33. D-dimer 0.45. Sodium 140, potassium 4.7, chloride 110, CO2 24, BUN 44 and creatinine 0.25. Blood sugars running between 197 and 248. Ferritin 629.9. LDH 704. He is currently nothing by mouth. 07/03: Patient has been afebrile, heart rate 61, blood pressure 177/104, pulse ox 97%. Patient remains intubated and on mechanical ventilation with tidal volume 450, FiO2 60, PEEP of 18. Repeat blood work reveals WBC 15.9, hemoglobin 14.9, platelet count 341. Lymphocytes 0.5. Sodium 140, potassium 4.9, chloride 109, CO2 22, BUN 44 and creatinine 1. LDH 951. Liver function tests normal. Blood sugars running between 221 and 299. Levemir will be increased to 20 units twice daily and scheduled NovoLog will be increased to 7 units every 6 hours along with NovoLog scale continued. Tube feedings are at goal. Repeat chest x-ray reveals diffuse pleural parenchymal changes correlate for interstitial pneumonia is stable. Dr. Beverly has stopped Nimbex and Cleviprex. 07/04: Heart rate has been running in the 40s and Lopressor decreased from 50 mg twice daily to 25 mg twice daily and parameters to hold if heart rate is less than 55. Blood pressure is still been an issue and patient was weaned off Alan viprex. She remains intubated and on mechanical ventilation with tidal volume 520, FiO2 60, PEEP of 18. Blood sugar was still running high until this morning, this morning's blood sugar 194. Adjustments were made to his insulin yesterday and tube feeding dose decreased today. Will hold on making any further changes with insulins. Repeat blood work reveals sed rate of 90, d- dimer 0.73. Sodium 141, potassium 4.6, chloride 112, CO2 25, BUN 43, creatinine 1.10. Ferritin 683.9. LDH 745. Repeat chest x-ray reveals diffuse bilateral airspace disease stable correlate for diffuse pneumonia, ARDS versus pulmonary edema. 07/05: Patient remains intubated and on mechanical ventilation with tidal volume 450, FiO2 60 and PEEP of 20. Patient has been afebrile, heart rate in the 40s, respiratory rate 28, blood pressure 134/60, pulse ox 98%. Lopressor is not been given at a lower rate due to bradycardia. Repeat blood work reveals WBC 13.6, hemoglobin 13.6, platelet count 292. Blood sugars running between 148 and 179. 07/06: Patient remains in the intensive care unit intubated and on mechanical ventilation with tidal volume 450, FiO2 60, PEEP of 20. He is on propofol and fentanyl. He is also currently on Cleviprex. Repeat chest x-ray reveals diffuse interstitial infiltrates are stable. WBC 14.2, hemoglobin 14.2, platelet count 292. Creatinine 0.97 and BUN 48. Blood sugars running between 165 an 187. Patient may require PEG tube and trach. 07/07: Repeat chest x-ray reveals mild improving nonspecific infiltrate can be compatible with atypical pneumonia. He remains in the intensive care unit intubated and on mechanical ventilation with tidal volume 450, FiO2 decreased to 50% and PEEP of 16. He is still on Cleviprex. He remains on sedation. He is tolerating tube feedings. Repeat blood work reveals WBC 9.1, hemoglobin 12.3, platelet count 244. D-dimer 1.35. BUN 41 creatinine 0.86. Blood sugars running between 146 and 168. C-reactive protein 7.9. CK 52. 07/08: Patient remains in the intensive care unit. He is on propofol and Ventolin. He is on mechanical ventilation with tidal volume 450, FiO2 50%, PEEP down to 16. Tube feedings are 10 MLS per hour at goal. POO 97%, HR improved and patient received lopressor last night and this morning. He as been afebrile. BP 148/72 and on Cleviprex. WBC 14.3. D-dimer 1.92. BUN 48 and creatinine 0.93. Calcium 8.2. Ferritin 548.2. Liver function tests are normal. LDH 1224. CK 65. C-reactive protein 6.6. 07/09: Patient remains intubated and on mechanical ventilation with tidal volume 450, FiO2 50 and PEEP of 16. Amlodipine was increased to [address] Dumont for blood pressure control. Patient remains on Cleviprex. Patient is also on fentanyl and propofol. Patient is also on tube feedings. Patient is on IV Lasix and IV Solu-Medrol. Proceeding has been consulted for PEG and trach placement. Repeat chest x-ray reveals diffuse bilateral predominantly interstitial infiltrates with basilar consolidative infiltrate stable. Patient has been afebrile, heart rate 52, blood pressure 149/74, pulse ox 89%. Repeat blood work reveals WBC 12.3, hemoglobin 13.7. D-dimer 2. Sodium 136, potassium 4.3, chloride 110, CO2 22, BUN 45 and creatinine 0.85. Sugars are running 136- 152. Ferritin 518.4. LDH 949, CK 52. C-reactive protein 7.3. 07/10: She remains intubated and on mechanical ventilation with tidal volume 380, FiO2 50, PEEP of 14 which is down from yesterday. Patient is scheduled for PEG tube and trach insertion today. He has been afebrile, heart rate in the 50s, blood pressure 129/69, pulse ox 93%. Repeat blood work reveals WBC 11.3, hemoglobin 14.6. Electrolytes normal. Creatinine 0.81. Blood sugars are running between 100 2244. LDH 925, CK 52, C-reactive protein 7.4. 07/11: Patient underwent trach and PEG tube placement yesterday with Dr. Rodríguez. He is currently on vent settings with tidal volume 650, FiO2 of 50%, PEEP of 12. Patient has been afebrile, heart rate in the 40s and 50s, blood pressure 105/54, pulse ox 87%. Repeat blood work reveals platelet count 149. Electrolytes normal, BUN 47 creatinine 0.85. Blood sugars running between 124 and 138. LDH 1073, CK 81, C-reactive protein 15.1. D-dimer 1.77. Prognosis remains guarded. 07/12: Patient remains in the intensive care unit on mechanical ventilation with pulse ox of 85% with tidal volume 700, FiO2 80 and PEEP of 14. Repeat blood work reveals WBC 5.8, hemoglobin 13.8, platelet count 104. D-dimer 1.22. Sodium 138, potassium 3.3, chloride 106, CO2 27, BUN 56 and creatinine 1.17. LDH 1077. C-reactive protein 62.2. Repeat chest x-ray reveals improvement in lung volume, aeration. Patient has been tolerating tube feedings which were started yesterday. No residuals. Patient has small amount of bleeding at the tracheostomy site. Patient is on IV antibiotics in form of cefepime. Sputum culture is in progress. 07/13: Patient remains on mechanical ventilation. His pulse ox is 90% on FiO2 of 90, pressure control of 18, PEEP of 16. Patient has been afebrile, heart rate 60s, blood pressure 124/62. Blood pressure has been running low and he is status post 2 L of IV fluid. Patient is on a low-dose of levo fed. EP blood work reveals WBC 5.5, hemoglobin 11.2, platelet count 62. D-dimer 1.35. Potassium 3.3 and was replaced. BUN 65 and creatinine 1.43. Blood sugars 121- 186. LDH 1564, CK 680, C-reactive protein 220. Repeat chest x-ray reveals bilateral interstitial and alveolar infiltrate stable. Sputum culture is positive for Klebsiella and patient is on cefepime. Patient is tolerating tube feedings. Fecal management system is in place. Patient had more bleeding from his trach site during the night. 07/14 patient remains in the ICU on mechanical ventilation on pressure control would want to treat her with pressure control of 18 PEEP 16 FiO2 100% with a respiratory rate of 20. Patient is currently on Precedex and fentanyl for sedation. No sedation tomorrow today. Patient continues to require minimal amount of levo fed. Patient was desaturating to 90% on 100% FiO2 with the pressure of 96/59. Data blood gas obtained during suggest a pH of 7.3 pCO2 51 a nd pO2 52 bicarb 26 lapses as a potassium of 2.9 chloride 112 creatinine 1.37 glucose 137 calcium 7.6 increased inflammation marker with LDH at 1694 increased from prior,'s true calcitonin 0.26 triglycerides 04/06/1931 LDH 1694. D-dimer is elevated at 1.48. Platelet has decreased to 38. Fibrinogen is normal at 368 APTT 40.5 INR 1.3.e Patient has been afebrile for 24 hours. Vancomycin is discontinued patient continues to be on cefepime 2 g every 12 hours for Klebsiella Pneumonia. Aspirin, Lipitor and fenofibrate discontinued. Enteral feeding continued for nutrition. 07/15 patient's remain in the ICU on mechanical ventilation on Precedex and fentanyl. He remains on pressure controlled PEEP of 20 any FiO2 of 100% respiratory rate 20. On assessment the patient's chest x-ray does show diffuse bilateral pulmonary infiltrates consistent with ARDS. Labs reevaluated patient's LDH is 20 56 CRP 22.8 CPK was mildly elevated at 927. Ferritin is high. Patient is currently off pressors. DIC panel was sent pending fibrillation is 67. Blood culture so far is negative. D-dimer is 5.4. Continues to leukopenic hemoglobin stable at 10.8 continue cefepime for Klebsiella pneumonia. Patient has minimal movement on painful stimulus and has no purposeful movement. Did have multiple bowel movements for which C. diff has been checked. 07/16: Patient remains in the intensive care unit, remains on mechanical ventilation with tidal volume 400, FiO2 100, peak 20. Chest x-ray this morning revealed a 20% right-sided pneumothorax. Patient underwent right-sided chest tube placement this morning for acute barotrauma with right-sided pneumothorax secondary to carotid 19 pneumonia and high PEEP. Patient has been afebrile, heart rate 82, blood pressure 95/55, pulse ox 84%. WBC 1.7, hemoglobin 10.6, platelet count 31. D-dimer 10.9. Sodium 146, potassium 4.6, chloride 116, CO2 26, BUN 76 and creatinine 1.64. Magnesium 2.7. AST 129, ALT 42, alkaline phosphatase 96. LDH 2071. CK 2753. C-reactive protein 20.5. REVIEW OF SYSTEMS Unable to obtain due to intubation, mechanical ventilation and sedation. PHYSICAL EXAMINATION Defer to pulmonary medicine due to intubation and active Covid status. Gen: This is a morbidly obese 80-year-old male. He is resting in ICU bed with trachea, mechanical ventilation. HEENT: Head is atraumatic, normocephalic. LUNGS: No intercostal retractions. NEUROLOGICAL: Patient issedated. ASSESSMENT AND PLAN 1. Acute hypoxic respiratory failure secondary to COVID19 and Klebsiella Pneumonia. Patient is status post Tocilizumab and convalescent plasma. Continue mechanical ventilation. Solu-Medrol discontinued, continue, vitamins C, vitamin D, zinc, Symbicort twice daily, continue vent management patient is managed by [facility] research. Consult with Dr. Rodríguez status posttrach and PEG tube insertion. Patient has been started on cefepime. status post one dose of ivermectin on request of patient's family 2. Possible secondary Klebsiella pneumonia. Patient is on cefepime. 3. Acute kidney injury with chronic kidney disease stage III. 3. History of coronary artery disease status post CABG, stable. Continue aspirin 81 mg daily, Lipitor 80 mg at bedtime, Lopressor 25 mg twice daily. 4. Diabetes mellitus type 2, uncontrolled with hyperglycemia secondary to steroids. Continue Actos 30 mg daily, NovoLog scale before meals and at bedtime, continue Levemir 20 units twice daily, NovoLog scale every 6 hours. No change in medications. 5. Hypertension. Continue Lopressor with parameters for bradycardia, Norvasc 10 mg daily. Continue Cleviprex. 6. Hyperlipidemia. Continue atorvastatin and fenofibrate 7. Hypothyroidism. Continue levothyroxine 75 g daily. 8. Bradycardia. Lopressor 25 mg twice daily . 9. Severe protein calorie malnutrition secondary to extended intubation. Patient is status post PEG tube insertion. Continue tube feedings. 10. Thrombocytopenia secondary to Covid. Lovenox discontinued. Hit antibodies ordered. Bleeding from trach monitored. 11. New onset atrial fibrillation, paroxysmal atrial fibrillation. Continue metoprolol. Anticoagulation on hold. 12. Acute barotrauma with right-sided pneumothorax secondary to Covid 19 pneumonia and high PEEP status post right-sided chest tube placement. 13. GI prophylaxis. Protonix. 14. DVT prophylaxis. Prognosis is guarded. Impression and plan of care have been directed as dictated by the signing physician. Mihaela Roberts nurse practitioner acting as scribe for signing physician. Objective - Vital Signs Vital signs: Vital Signs Temp 97.2 F L 07/16/20 04:00 Pulse 100 07/16/20 07:00 Resp 13 07/16/20 07:00 BP 138/81 07/15/20 21:30 Pulse Ox 72 L 07/16/20 07:00 Intake & Output 04/18/21 04/19/21 04/19/21 18:59 06:59 18:59 Intake Total 1921.401 0673.196 316.272 Output Total 1915 710 80 Balance -280.279 698.196 236.272 Weight 143 kg Intake: IV 353 275 25 Cefepime 2 gm In Sodium 100 Chloride 0.9% 100 ml @ 25 mls/hr IVPB Q12HR [facility] Rx #:[id number] Pressure bag 63 55 5 Sodium Chloride 0.9% 1, 190 220 20 000 ml @ 20 mls/hr IV . Q24H [facility] Rx#:[id number] Intake, IV Titration 407.721 397.196 225.272 Amount Dexmedetomidine/0.9% NaCl 40.775 (Pmx) 400 mcg In Empty Bag 1 bag @ Titrate IV . Q0M [facility] Rx#:[id number] Dexmedetomidine/0.9% NaCl 66.946 197.196 100.000 (Pmx) 400 mcg In Empty Bag 1 bag @ Titrate IV . Q0M [facility] Rx#:[id number] Norepinephrine 8 mg In 0 Sodium Chloride 0.9% 250 ml @ 0.05 MCG/KG/MIN 13. 061 mls/hr IV .[id number] [facility] Rx#:[id number] Norepinephrine 8 mg In 25.272 Sodium Chloride 0.9% 250 ml @ 0.05 MCG/KG/MIN 13. 835 mls/hr IV .[id number] [facility] Rx#:[id number] fentaNYL (PF). 1,000 mcg 300.000 200 100 In Sodium Chloride 0.9% 80 ml @ Per Protocol IV . Q0M [facility] Rx#:[id number] Tube Feeding 784 646 66 Other 90 90 Output: Urine 1015 710 80 Stool 900 Other: Voiding Method Indwelling Catheter Indwelling Catheter ABP, PAP, CO, CI - Last Documented Arterial Blood Pressure 123/66 - Labs CBC & Chem 7: 07/16/20 04:45 07/16/20 04:45 Labs: Abnormal Lab Results - Last 24 Hours (Table) 07/15/20 07/15/20 07/15/20 Range/Units 14:17 16:16 17:10 WBC (3.8-10.6) k/uL RBC (4.30-5.90) m/uL Hgb (13.0-17.5) gm/dL Hct (39.0-53.0) % RDW (11.5-15.5) % Plt Count (150-450) k/uL Neutrophils # (1.3-7.7) k/uL Lymphocytes # (1.0-4.8) k/uL Fibrinogen (200-500) mg/dL D-Dimer (<0.60) mg/L FEU ABG pH 7.32 L (7.35-7.45) ABG pCO2 49 H (35-45) mmHg ABG pO2 46 L* 59 L* (83-108) mmHg ABG HCO3 (21-25) mmol/L ABG Total CO2 26 H 27 H (19-24) mmol/L ABG O2 Saturation 79.6 L 88.3 L (94-97) % Sodium (137-145) mmol/L Chloride (98-107) mmol/L BUN (9-20) mg/dL Creatinine (0.66-1.25) mg/dL Glucose (74-99) mg/dL POC Glucose (mg/dL) 154 H (75-99) mg/dL Magnesium (1.6-2.3) mg/dL AST (17-59) U/L Lactate Dehydrogenase (313-618) U/L Creatine Kinase (55-170) U/L C-Reactive Protein (<1.0) mg/dL Total Protein (6.3-8.2) g/dL Albumin (3.5-5.0) g/dL 07/15/20 07/16/20 07/16/20 Range/Units 23:47 00:37 04:33 WBC (3.8-10.6) k/uL RBC (4.30-5.90) m/uL Hgb (13.0-17.5) gm/dL Hct (39.0-53.0) % RDW (11.5-15.5) % Plt Count (150-450) k/uL Neutrophils # (1.3-7.7) k/uL Lymphocytes # (1.0-4.8) k/uL Fibrinogen (200-500) mg/dL D-Dimer (<0.60) mg/L FEU ABG pH 7.32 L 7.28 L (7.35-7.45) ABG pCO2 49 H 55 H (35-45) mmHg ABG pO2 40 L* 63 L (83-108) mmHg ABG HCO3 26 H (21-25) mmol/L ABG Total CO2 27 H 27 H (19-24) mmol/L ABG O2 Saturation 71.2 L 90.0 L (94-97) % Sodium (137-145) mmol/L Chloride (98-107) mmol/L BUN (9-20) mg/dL Creatinine (0.66-1.25) mg/dL Glucose (74-99) mg/dL POC Glucose (mg/dL) 144 H (75-99) mg/dL Magnesium (1.6-2.3) mg/dL AST (17-59) U/L Lactate Dehydrogenase (313-618) U/L Creatine Kinase (55-170) U/L C-Reactive Protein (<1.0) mg/dL Total Protein (6.3-8.2) g/dL Albumin (3.5-5.0) g/dL 07/16/20 07/16/20 07/16/20 Range/Units 04:45 04:45 04:45 WBC 1.7 L (3.8-10.6) k/uL RBC 3.56 L (4.30-5.90) m/uL Hgb 10.6 L (13.0-17.5) gm/dL Hct 32.2 L (39.0-53.0) % RDW 16.2 H (11.5-15.5) % Plt Count 31 L (150-450) k/uL Neutrophils # 1.1 L (1.3-7.7) k/uL Lymphocytes # 0.3 L (1.0-4.8) k/uL Fibrinogen 601 H (200-500) mg/dL D-Dimer 10.90 H (<0.60) mg/L FEU ABG pH (7.35-7.45) ABG pCO2 (35-45) mmHg ABG pO2 (83-108) mmHg ABG HCO3 (21-25) mmol/L ABG Total CO2 (19-24) mmol/L ABG O2 Saturation (94-97) % Sodium 146 H (137-145) mmol/L Chloride 116 H (98-107) mmol/L BUN 76 H (9-20) mg/dL Creatinine 1.64 H (0.66-1.25) mg/dL Glucose 126 H (74-99) mg/dL POC Glucose (mg/dL) (75-99) mg/dL Magnesium 2.7 H (1.6-2.3) mg/dL AST 129 H (17-59) U/L Lactate Dehydrogenase 2071 H (313-618) U/L Creatine Kinase 2753 H* (55-170) U/L C-Reactive Protein 20.5 H (<1.0) mg/dL Total Protein 4.5 L (6.3-8.2) g/dL Albumin 2.2 L (3.5-5.0) g/dL 07/16/20 07/16/20 07/16/20 Range/Units 07:12 10:51 11:42 WBC (3.8-10.6) k/uL RBC (4.30-5.90) m/uL Hgb (13.0-17.5) gm/dL Hct (39.0-53.0) % RDW (11.5-15.5) % Plt Count (150-450) k/uL Neutrophils # (1.3-7.7) k/uL Lymphocytes # (1.0-4.8) k/uL Fibrinogen (200-500) mg/dL D-Dimer (<0.60) mg/L FEU ABG pH 7.06 L* (7.35-7.45) ABG pCO2 89 H* (35-45) mmHg ABG pO2 76 L (83-108) mmHg ABG HCO3 (21-25) mmol/L ABG Total CO2 28 H (19-24) mmol/L ABG O2 Saturation 89.1 L (94-97) % Sodium (137-145) mmol/L Chloride (98-107) mmol/L BUN (9-20) mg/dL Creatinine (0.66-1.25) mg/dL Glucose (74-99) mg/dL POC Glucose (mg/dL) 135 H 182 H (75-99) mg/dL Magnesium (1.6-2.3) mg/dL AST (17-59) U/L Lactate Dehydrogenase (313-618) U/L Creatine Kinase (55-170) U/L C-Reactive Protein (<1.0) mg/dL Total Protein (6.3-8.2) g/dL Albumin (3.5-5.0) g/dL Microbiology - Last 24 Hours (Table) 07/12/20 17:39 Blood Culture - Preliminary Blood No Growth after 72 hours
[2020-07-16 15:10] LABS: ABG HCO3 23 mmol/L (21-25); ABG Oxygen Saturation 95.6 % (94-97); ABG PO2 99 mmHg (83-108); ABG TCO2 25 mmol/L (19-24)
[2020-07-16 15:12] LABS: ABG PCO2 73 mmHg (35-45)
[2020-07-16 15:56] LABS: Ferritin 1604.3 ng/mL (22.0-322.0)
[2020-07-16] MEDS: DEXTROSE 5% IN WATER 1,000 ML with SODIUM BICARB (1 MEQ/ML) 150 ML IV SCH (16:36)
[2020-07-16 18:34] LABS: Glucose,Whole Blood 159 mg/dL (75-99)
--- NOTE | 2020-07-16 23:14 | OP ---
OPERATIVE REPORT OPERATIVE REPORT: Placement of a left brachial arterial line. This was done on an emergent basis. PREOPERATIVE DIAGNOSIS: COVID-19 pneumonia, hypotension, respiratory failure. POSTOPERATIVE DIAGNOSIS: COVID-19 pneumonia, hypotension, respiratory failure. ANESTHESIA USED: None deployed. PROCEDURE DESCRIPTION: The patient was placed in supine position. The left brachial region was prepared in a sterile fashion and drapes were applied. The left brachial artery was palpated, cannulated easily, and a guidewire was placed. A Cook's catheter was inserted over the guidewire. Guidewire was removed. Good blood flow, good waveform noted. Line was secured using 2.0 silk sutures. No complications. Procedure was well tolerated. MMODL / IJN: [id number] /
[2020-07-17] LABS: Glucose,Whole Blood 174 mg/dL (75-99)
[2020-07-17] MEDS: INSULIN ASPART (NovoLOG) 100 UNIT/ML VIAL SQ SCH ×4 (00:46→19:14)
[2020-07-17] MEDS: fentaNYL (PF). 1,000 MCG in SODIUM CHLORIDE 0.9% 80 ML IV SCH ×4 (01:15→19:05)
[2020-07-17] MEDS: DEXMEDETOMIDINE/0.9% NACL(PMX) 400 MCG in EMPTY BAG 1 BAG IV SCH ×3 (01:30→15:44)
[2020-07-17] MEDS: CISATRACURIUM 200 MG in SODIUM CHLORIDE 0.9% 180 ML IV SCH ×2 (03:31→16:52)
[2020-07-17 05:32] LABS: Anisocytosis Slight; HCT 37.1 % (39.0-53.0); HGB 11.8 gm/dL (13.0-17.5); Hypochromasia Marked; MCH 29.9 pg (25.0-35.0); MCHC 31.7 g/dL (31.0-37.0); MCV 94.4 fL (80.0-100.0); Mean Platelet Volume 14.7; Poikilocytosis Slight; RBC 3.93 m/uL (4.30-5.90); RDW 16.5 % (11.5-15.5)
[2020-07-17 05:55] LABS: Glucose,Whole Blood 200 mg/dL (75-99)
[2020-07-17 05:55] LABS: ABG Base Excess -5.4 mmol/L; ABG HCO3 24 mmol/L (21-25); ABG PO2 75 mmHg (83-108); ABG TCO2 26 mmol/L (19-24); Allen Test Performed? Yes
[2020-07-17 06:02] LABS: ABG PCO2 76 mmHg (35-45); ABG PH 7.11 (7.35-7.45)
[2020-07-17 06:08] LABS: Albumin 2.3 g/dL (3.5-5.0); Calcium 8.2 mg/dL (8.4-10.2); Magnesium 2.7 mg/dL (1.6-2.3); Potassium 5.8 mmol/L (3.5-5.1); Total Bilirubin 0.9 mg/dL (0.2-1.3); Total Protein 4.8 g/dL (6.3-8.2)
[2020-07-17 06:21] LABS: C Reactive Protein 17.8 mg/dL (<1.0)
[2020-07-17] MEDS: LEVOTHYROXINE 75 MCG TAB PO SCH (06:25)
[2020-07-17] MEDS: INSULIN DETEMIR (LEVEMIR) 100 UNIT/ML SYR SQ SCH ×2 (06:25→20:30)
[2020-07-17 06:32] LABS: Platelet Count 28 k/uL (150-450)
[2020-07-17 06:52] LABS: D-Dimer 15.61 mg/L FEU (<0.60)
[2020-07-17] MEDS ORDERED: SODIUM CHLORIDE 0.9% 1,000 ML IV ONE ×3 (06:59→12:50)
[2020-07-17] MEDS: NOREPINEPHRINE 8 MG in SODIUM CHLORIDE 0.9% 250 ML IV SCH ×4 (07:29→22:17)
[2020-07-17] MEDS: DEXTROSE 5% IN WATER 1,000 ML with SODIUM BICARB (1 MEQ/ML) 150 ML IV SCH ×2 (07:30→15:20)
--- NOTE | 2020-07-17 07:51 | XR ---
EXAMINATION TYPE: XR chest 1V portable DATE OF EXAM: 07/17/2020 COMPARISON: Chest x-ray 07/16/2020 HISTORY: Covid pneumonia, chest tube TECHNIQUE: Single frontal view of the chest is obtained. FINDINGS: Right-sided chest tube, tracheostomy tube, left-sided subclavian central venous catheter a nd post median sternotomy changes are again noted. Stable minimal right apical pneumothorax, no evide nt pleural effusion. Bilateral airspace disease, interstitial changes are again noted. Cardiac medias tinal silhouette is unchanged. There is an overlying clamp over the neck. IMPRESSION: Findings are similar to prior exam. Correlate for metallic clamp overlying the patient. Differential diagnostic considerations include pneumonia, edema, ARDS
[2020-07-17] MEDS: polyethylene glycoL 3350 17 GM POWD.PACK PO SCH (08:32)
[2020-07-17] MEDS: amLODIPine 10 MG TAB PO SCH (08:32)
[2020-07-17] MEDS: ASCORBIC ACID 500 MG TAB PO SCH (08:39)
[2020-07-17] MEDS: CHLORHEXIDINE GLUCONATE 15 ML CUP MUCOUS MEM SCH ×2 (08:39→20:29)
[2020-07-17] MEDS: SENNOSIDES-DOCUSATE SODIUM 1 EACH TAB PO SCH (08:39)
[2020-07-17] MEDS: PANTOPRAZOLE 40 MG/10 ML VIAL IVP SCH (08:39)
[2020-07-17] MEDS: MULTIVITAMINS, THERA 1 EACH TAB PO SCH (08:39)
[2020-07-17] MEDS: CHOLECALCIFEROL 25 MCG (1000 IU) TABLET PO SCH (08:39)
[2020-07-17] MEDS: predniSONE 20 MG TAB PO SCH (08:39)
[2020-07-17] MEDS: ZINC SULFATE 220 MG CAP PO SCH (08:39)
[2020-07-17] MEDS: CEFEPIME 2 GM in SODIUM CHLORIDE 0.9% 100 ML IVPB SCH (08:40)
[2020-07-17] MEDS: METOPROLOL TARTRATE 25 MG TAB PO SCH ×2 (08:41→20:30)
[2020-07-17] MEDS: ALBUTEROL HFA INHALER INHALATION SCH ×4 (09:32→21:52)
[2020-07-17 11:45] LABS: Glucose,Whole Blood 175 mg/dL (75-99)
[2020-07-17] MEDS ORDERED: VECURONIUM 10 MG VIAL IV ONE (11:56)
--- NOTE | 2020-07-17 12:13 | P.PN ---
Subjective Progress Note Date: 07/17/20 HISTORY OF PRESENT ILLNESS This is a 80-year-old male patient of Dr. 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 Patient states that he has had symptoms for 2 weeks which include body aches, shortness of breath coming foggy thinking. He denies any nausea, vomiting or diarrhea. He states he has had sputum production. He denies any lower extremity edema. Patient does not have home oxygen. Patient presented to [facility] emergency center for evaluation. Chest x-ray reveals bibasilar patchy opacities consistent with multifocal infection. No pleural effusions or pneumothorax. Temperature 100.1, heart rate 75, respiratory rate 24, blood pressure 125/63 and pulse ox 83% on room air. EKG was a sinus rhythm at 66 bpm. CBC was unremarkable except for lymphocytosis of 0.5. INR 1.0. Sodium 135, BUN 28 creatinine 1.68. Blood sugar 202. Lactic acid 1.6. Liver function tests were normal. LDH 730. C- reactive protein and a 5.9. ProBNP 522. 4/2: Patient is seen today on the observation unit as an overflow. Pulse ox is 84% on 15 L hyponasal cannula and nonrebreather. Patient seems to have more shortness of breath today and also complains of wheezing. No significant cough production. No fever or chills. No chest pain. WBC 11.2, hemoglobin 14.8, platelet count 233. Repeat chest x-ray reveals findings consistent with pneumonia. Pro-calcitonin 0.12. Blood sugars running in the 200s. Patient to be moved to the intensive care unit. 06/30: Patient declined significantly in the afternoon yesterday ended up on mechanical ventilation, he been sedated currently his marker are still quite bit high. Patient still required high demand O2 along with high PEEP of 15-20 to keep his pulse ox at the margin of 90 percentile. His blood sugars mildly elevated and still been managed on insulin, white blood cell is up to 13,000 today, his blood gas shows pO2 of 653 only. CO2 of 27 and pH of 7.31 creatinine has slightly improved since yesterday he C-reactive protein is up to 144 and LDH of 748. 4/4: Patient is still on mechanical ventilation is FiO2 is down to 70% still on PEEP of 18 I had long discussion with the and update her on with outpatient patient's condition still guarded this point his prognosis still not good but he has slight improvement compared to yesterday, his kidney function has improved slightly bit compared to yesterday as well. 07/02: Patient remains in the ICU. Patient is intubated and on mechanical ventilation with tidall volume 450,, FiO2 60%, PEEP of 18 which is improved from yesterday. He is pulse oxing 92-95%. He has been afebrile, heart rate in the 40s, respiratory rate 28, blood pressure 148/67. gold cutter is sinus bradycardia. Repeat lab work reveals WBC 12.4, hemoglobin 13.1, platelet count 266. Sed rate 33. D-dimer 0.45. Sodium 140, potassium 4.7, chloride 110, CO2 24, BUN 44 and creatinine 0.25. Blood sugars running between 197 and 248. Ferritin 629.9. LDH 704. He is currently nothing by mouth. 07/03: Patient has been afebrile, heart rate 61, blood pressure 177/104, pulse ox 97%. Patient remains intubated and on mechanical ventilation with tidal volume 450, FiO2 60, PEEP of 18. Repeat blood work reveals WBC 15.9, hemoglobin 14.9, platelet count 341. Lymphocytes 0.5. Sodium 140, potassium 4.9, chloride 109, CO2 22, BUN 44 and creatinine 1. LDH 951. Liver function tests normal. Blood sugars running between 221 and 299. Levemir will be increased to 20 units twice daily and scheduled NovoLog will be increased to 7 units every 6 hours along with NovoLog scale continued. Tube feedings are at goal. Repeat chest x-ray reveals diffuse pleural parenchymal changes correlate for interstitial pneumonia is stable. Dr. Beverly has stopped Nimbex and Cleviprex. 07/04: Heart rate has been running in the 40s and Lopressor decreased from 50 mg twice daily to 25 mg twice daily and parameters to hold if heart rate is less than 55. Blood pressure is still been an issue and patient was weaned off Alan viprex. She remains intubated and on mechanical ventilation with tidal volume 520, FiO2 60, PEEP of 18. Blood sugar was still running high until this morning, this morning's blood sugar 194. Adjustments were made to his insulin yesterday and tube feeding dose decreased today. Will hold on making any further changes with insulins. Repeat blood work reveals sed rate of 90, d- dimer 0.73. Sodium 141, potassium 4.6, chloride 112, CO2 25, BUN 43, creatinine 1.10. Ferritin 683.9. LDH 745. Repeat chest x-ray reveals diffuse bilateral airspace disease stable correlate for diffuse pneumonia, ARDS versus pulmonary edema. 07/05: Patient remains intubated and on mechanical ventilation with tidal volume 450, FiO2 60 and PEEP of 20. Patient has been afebrile, heart rate in the 40s, respiratory rate 28, blood pressure 134/60, pulse ox 98%. Lopressor is not been given at a lower rate due to bradycardia. Repeat blood work reveals WBC 13.6, hemoglobin 13.6, platelet count 292. Blood sugars running between 148 and 179. 07/06: Patient remains in the intensive care unit intubated and on mechanical ventilation with tidal volume 450, FiO2 60, PEEP of 20. He is on propofol and fentanyl. He is also currently on Cleviprex. Repeat chest x-ray reveals diffuse interstitial infiltrates are stable. WBC 14.2, hemoglobin 14.2, platelet count 292. Creatinine 0.97 and BUN 48. Blood sugars running between 165 an 187. Patient may require PEG tube and trach. 07/07: Repeat chest x-ray reveals mild improving nonspecific infiltrate can be compatible with atypical pneumonia. He remains in the intensive care unit intubated and on mechanical ventilation with tidal volume 450, FiO2 decreased to 50% and PEEP of 16. He is still on Cleviprex. He remains on sedation. He is tolerating tube feedings. Repeat blood work reveals WBC 9.1, hemoglobin 12.3, platelet count 244. D-dimer 1.35. BUN 41 creatinine 0.86. Blood sugars running between 146 and 168. C-reactive protein 7.9. CK 52. 07/08: Patient remains in the intensive care unit. He is on propofol and Ventolin. He is on mechanical ventilation with tidal volume 450, FiO2 50%, PEEP down to 16. Tube feedings are 10 MLS per hour at goal. POO 97%, HR improved and patient received lopressor last night and this morning. He as been afebrile. BP 148/72 and on Cleviprex. WBC 14.3. D-dimer 1.92. BUN 48 and creatinine 0.93. Calcium 8.2. Ferritin 548.2. Liver function tests are normal. LDH 1224. CK 65. C-reactive protein 6.6. 07/09: Patient remains intubated and on mechanical ventilation with tidal volume 450, FiO2 50 and PEEP of 16. Amlodipine was increased to [address] Dumont for blood pressure control. Patient remains on Cleviprex. Patient is also on fentanyl and propofol. Patient is also on tube feedings. Patient is on IV Lasix and IV Solu-Medrol. Proceeding has been consulted for PEG and trach placement. Repeat chest x-ray reveals diffuse bilateral predominantly interstitial infiltrates with basilar consolidative infiltrate stable. Patient has been afebrile, heart rate 52, blood pressure 149/74, pulse ox 89%. Repeat blood work reveals WBC 12.3, hemoglobin 13.7. D-dimer 2. Sodium 136, potassium 4.3, chloride 110, CO2 22, BUN 45 and creatinine 0.85. Sugars are running 136- 152. Ferritin 518.4. LDH 949, CK 52. C-reactive protein 7.3. 07/10: She remains intubated and on mechanical ventilation with tidal volume 380, FiO2 50, PEEP of 14 which is down from yesterday. Patient is scheduled for PEG tube and trach insertion today. He has been afebrile, heart rate in the 50s, blood pressure 129/69, pulse ox 93%. Repeat blood work reveals WBC 11.3, hemoglobin 14.6. Electrolytes normal. Creatinine 0.81. Blood sugars are running between 100 2244. LDH 925, CK 52, C-reactive protein 7.4. 07/11: Patient underwent trach and PEG tube placement yesterday with Dr. Rodríguez. He is currently on vent settings with tidal volume 650, FiO2 of 50%, PEEP of 12. Patient has been afebrile, heart rate in the 40s and 50s, blood pressure 105/54, pulse ox 87%. Repeat blood work reveals platelet count 149. Electrolytes normal, BUN 47 creatinine 0.85. Blood sugars running between 124 and 138. LDH 1073, CK 81, C-reactive protein 15.1. D-dimer 1.77. Prognosis remains guarded. 07/12: Patient remains in the intensive care unit on mechanical ventilation with pulse ox of 85% with tidal volume 700, FiO2 80 and PEEP of 14. Repeat blood work reveals WBC 5.8, hemoglobin 13.8, platelet count 104. D-dimer 1.22. Sodium 138, potassium 3.3, chloride 106, CO2 27, BUN 56 and creatinine 1.17. LDH 1077. C-reactive protein 62.2. Repeat chest x-ray reveals improvement in lung volume, aeration. Patient has been tolerating tube feedings which were started yesterday. No residuals. Patient has small amount of bleeding at the tracheostomy site. Patient is on IV antibiotics in form of cefepime. Sputum culture is in progress. 07/13: Patient remains on mechanical ventilation. His pulse ox is 90% on FiO2 of 90, pressure control of 18, PEEP of 16. Patient has been afebrile, heart rate 60s, blood pressure 124/62. Blood pressure has been running low and he is status post 2 L of IV fluid. Patient is on a low-dose of levo fed. EP blood work reveals WBC 5.5, hemoglobin 11.2, platelet count 62. D-dimer 1.35. Potassium 3.3 and was replaced. BUN 65 and creatinine 1.43. Blood sugars 121- 186. LDH 1564, CK 680, C-reactive protein 220. Repeat chest x-ray reveals bilateral interstitial and alveolar infiltrate stable. Sputum culture is positive for Klebsiella and patient is on cefepime. Patient is tolerating tube feedings. Fecal management system is in place. Patient had more bleeding from his trach site during the night. 07/14 patient remains in the ICU on mechanical ventilation on pressure control would want to treat her with pressure control of 18 PEEP 16 FiO2 100% with a respiratory rate of 20. Patient is currently on Precedex and fentanyl for sedation. No sedation tomorrow today. Patient continues to require minimal amount of levo fed. Patient was desaturating to 90% on 100% FiO2 with the pressure of 96/59. Data blood gas obtained during suggest a pH of 7.3 pCO2 51 a nd pO2 52 bicarb 26 lapses as a potassium of 2.9 chloride 112 creatinine 1.37 glucose 137 calcium 7.6 increased inflammation marker with LDH at 1694 increased from prior,'s true calcitonin 0.26 triglycerides 04/06/1931 LDH 1694. D-dimer is elevated at 1.48. Platelet has decreased to 38. Fibrinogen is normal at 368 APTT 40.5 INR 1.3.e Patient has been afebrile for 24 hours. Vancomycin is discontinued patient continues to be on cefepime 2 g every 12 hours for Klebsiella Pneumonia. Aspirin, Lipitor and fenofibrate discontinued. Enteral feeding continued for nutrition. 07/15 patient's remain in the ICU on mechanical ventilation on Precedex and fentanyl. He remains on pressure controlled PEEP of 20 any FiO2 of 100% respiratory rate 20. On assessment the patient's chest x-ray does show diffuse bilateral pulmonary infiltrates consistent with ARDS. Labs reevaluated patient's LDH is 20 56 CRP 22.8 CPK was mildly elevated at 927. Ferritin is high. Patient is currently off pressors. DIC panel was sent pending fibrillation is 67. Blood culture so far is negative. D-dimer is 5.4. Continues to leukopenic hemoglobin stable at 10.8 continue cefepime for Klebsiella pneumonia. Patient has minimal movement on painful stimulus and has no purposeful movement. Did have multiple bowel movements for which C. diff has been checked. 07/16: Patient remains in the intensive care unit, remains on mechanical ventilation with tidal volume 400, FiO2 100, peak 20. Chest x-ray this morning revealed a 20% right-sided pneumothorax. Patient underwent right-sided chest tube placement this morning for acute barotrauma with right-sided pneumothorax secondary to carotid 19 pneumonia and high PEEP. Patient has been afebrile, heart rate 82, blood pressure 95/55, pulse ox 84%. WBC 1.7, hemoglobin 10.6, platelet count 31. D-dimer 10.9. Sodium 146, potassium 4.6, chloride 116, CO2 26, BUN 76 and creatinine 1.64. Magnesium 2.7. AST 129, ALT 42, alkaline phosphatase 96. LDH 2071. CK 2753. C-reactive protein 20.5. 07/17: Patient remains intubated and on mechanical ventilation with FiO2 100% and PEEP of 20. There is a problem with patient's trach which sounds like it needs to be replaced. General surgery is following. Patient has had worsening of his renal function with BUN of 103 and creatinine of 2.36, potassium 5.8. Consult in place with nephrology. Blood sugars are running between 159 and 200. WBC 2.7, hemoglobin 11.8. Fibrinogen 451. D-dimer 15.6. C-reactive protein 8963. C-reactive protein 17.8. LDH 3181. AST is 1335. ALT 742. REVIEW OF SYSTEMS Unable to obtain due to intubation, mechanical ventilation and sedation. PHYSICAL EXAMINATION Defer to pulmonary medicine due to intubation and active Covid status. Gen: This is a morbidly obese 80-year-old male. He is resting in ICU bed with tracheostomy, mechanical ventilation. HEENT: Head is atraumatic, normocephalic. LUNGS: No intercostal retractions. NEUROLOGICAL: Patient issedated. ASSESSMENT AND PLAN 1. Acute hypoxic respiratory failure secondary to COVID19 and Klebsiella Pneumonia. Patient is status post Tocilizumab and convalescent plasma. Continue mechanical ventilation. 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 Consult with Dr. Rodríguez status posttrach and PEG tube insertion. Continue cefepime. status post one dose of ivermectin on request of patient's family 2. Possible secondary Klebsiella pneumonia. Patient is on cefepime. 3. Acute kidney injury with chronic kidney disease stage III. 4. History of coronary artery disease status post CABG, stable. Continue aspirin 81 mg daily, Lipitor 80 mg at bedtime, Lopressor 25 mg twice daily. 5. Diabetes mellitus type 2, uncontrolled with hyperglycemia secondary to steroids. Continue Actos 30 mg daily, NovoLog scale before meals and at bedtime, continue Levemir 20 units twice daily, NovoLog scale every 6 hours. No change in medications. 6. Hypertension. Continue Lopressor with parameters for bradycardia, Norvasc 10 mg daily. Continue Cleviprex. 7. Hyperlipidemia. Continue atorvastatin and fenofibrate 8. Hypothyroidism. Continue levothyroxine 75 g daily. 9. Bradycardia. Lopressor 25 mg twice daily . 10. Severe protein calorie malnutrition secondary to extended intubation. P atient is status post PEG tube insertion. Continue tube feedings. 11. Thrombocytopenia secondary to Covid. Lovenox discontinued. Hit antibodies ordered. Bleeding from trach monitored. 12. New onset atrial fibrillation, paroxysmal atrial fibrillation. Continue metoprolol. Anticoagulation on hold. 13. Acute barotrauma with right-sided pneumothorax secondary to Covid 19 pneumonia and high PEEP status post right-sided chest tube placement. 14. Acute kidney injury. Nephrology consult. 15. GI prophylaxis. Protonix. 16. DVT prophylaxis. Prognosis is guarded. Impression and plan of care have been directed as dictated by the signing physician. Mihaela Roberts nurse practitioner acting as scribe for signing physician. Objective - Vital Signs Vital signs: Vital Signs Temp 98.4 F 07/17/20 08:00 Pulse 105 H 07/17/20 09:30 Resp 35 H 07/17/20 09:30 BP 92/44 07/17/20 09:30 Pulse Ox 91 L 07/17/20 09:30 Intake & Output 07/16/20 07/17/20 07/17/20 18:59 06:59 18:59 Intake Total 0205.597 5204.832 230.968 Output Total 1005 295 20 Balance 877.534 6522.832 210.968 Weight 143 kg 143.7 kg Intake: IV 306 936 78 Dextrose 5% in Water 1, 150 900 75 000 ml @ 75 mls/hr IV . [id number] [facility] with Sodium Bicarb (1 Meq/ml) 150 ml Rx#:[id number] Pressure bag 56 36 3 Sodium Chloride 0.9% 1, 100 000 ml @ 20 mls/hr IV . Q24H [facility] Rx#:[id number] Intake, IV Titration 136.266 4684.832 79.968 Amount Cisatracurium 200 mg In 21.164 178.464 Sodium Chloride 0.9% 180 ml @ 1 MCG/KG/MIN 8.58 mls/hr IV .[id number] [facility] Rx #:[id number] Dexmedetomidine/0.9% NaCl 200.000 300 (Pmx) 400 mcg In Empty Bag 1 bag @ Titrate IV . Q0M [facility] Rx#:[id number] Norepinephrine 8 mg In 0 Sodium Chloride 0.9% 250 ml @ 0.05 MCG/KG/MIN 13. 061 mls/hr IV .[id number] [facility] Rx#:[id number] Norepinephrine 8 mg In 51.743 454.464 79.968 Sodium Chloride 0.9% 250 ml @ 0.05 MCG/KG/MIN 13. 835 mls/hr IV .[id number] [facility] Rx#:[id number] fentaNYL (PF). 1,000 mcg 230.096 269.904 In Sodium Chloride 0.9% 80 ml @ Per Protocol IV . Q0M [facility] Rx#:[id number] Tube Feeding 039 949 73 Other 60 110 Output: Chest Tube Drainage 600 0 Right Anterior Chest 600 0 Urine 405 295 20 Other: Voiding Method Indwelling Catheter Indwelling Catheter ABP, PAP, CO, CI - Last Documented Arterial Blood Pressure 79/63 - Labs CBC & Chem 7: 07/17/20 04:45 07/17/20 04:45 Labs: Abnormal Lab Results - Last 24 Hours (Table) 07/16/20 07/16/20 07/16/20 Range/Units 04:45 10:51 11:42 WBC (3.8-10.6) k/uL RBC (4.30-5.90) m/uL Hgb (13.0-17.5) gm/dL Hct (39.0-53.0) % RDW (11.5-15.5) % D-Dimer (<0.60) mg/L FEU ABG pH 7.06 L* (7.35-7.45) ABG pCO2 89 H* (35-45) mmHg ABG pO2 76 L (83-108) mmHg ABG Total CO2 28 H (19-24) mmol/L ABG O2 Saturation 89.1 L (94-97) % Potassium (3.5-5.1) mmol/L Chloride (98-107) mmol/L BUN (9-20) mg/dL Creatinine (0.66-1.25) mg/dL Glucose (74-99) mg/dL POC Glucose (mg/dL) 182 H (75-99) mg/dL Calcium (8.4-10.2) mg/dL Magnesium (1.6-2.3) mg/dL Ferritin 1604.3 H (22.0-322.0) ng/mL AST (17-59) U/L ALT (4-49) U/L Lactate Dehydrogenase (313-618) U/L Creatine Kinase (55-170) U/L C-Reactive Protein (<1.0) mg/dL Total Protein (6.3-8.2) g/dL Albumin (3.5-5.0) g/dL 07/16/20 07/16/20 07/16/20 Range/Units 15:07 18:33 23:58 WBC (3.8-10.6) k/uL RBC (4.30-5.90) m/uL Hgb (13.0-17.5) gm/dL Hct (39.0-53.0) % RDW (11.5-15.5) % D-Dimer (<0.60) mg/L FEU ABG pH 7.10 L* (7.35-7.45) ABG pCO2 73 H* (35-45) mmHg ABG pO2 (83-108) mmHg ABG Total CO2 25 H (19-24) mmol/L ABG O2 Saturation (94-97) % Potassium (3.5-5.1) mmol/L Chloride (98-107) mmol/L BUN (9-20) mg/dL Creatinine (0.66-1.25) mg/dL Glucose (74-99) mg/dL POC Glucose (mg/dL) 159 H 174 H (75-99) mg/dL Calcium (8.4-10.2) mg/dL Magnesium (1.6-2.3) mg/dL Ferritin (22.0-322.0) ng/mL AST (17-59) U/L ALT (4-49) U/L Lactate Dehydrogenase (313-618) U/L Creatine Kinase (55-170) U/L C-Reactive Protein (<1.0) mg/dL Total Protein (6.3-8.2) g/dL Albumin (3.5-5.0) g/dL 07/17/20 07/17/20 07/17/20 Range/Units 04:45 04:45 04:45 WBC 2.7 L (3.8-10.6) k/uL RBC 3.93 L (4.30-5.90) m/uL Hgb 11.8 L (13.0-17.5) gm/dL Hct 37.1 L (39.0-53.0) % RDW 16.5 H (11.5-15.5) % D-Dimer 15.61 H (<0.60) mg/L FEU ABG pH (7.35-7.45) ABG pCO2 (35-45) mmHg ABG pO2 (83-108) mmHg ABG Total CO2 (19-24) mmol/L ABG O2 Saturation (94-97) % Potassium 5.8 H (3.5-5.1) mmol/L Chloride 113 H (98-107) mmol/L BUN 103 H* (9-20) mg/dL Creatinine 2.36 H (0.66-1.25) mg/dL Glucose 179 H (74-99) mg/dL POC Glucose (mg/dL) (75-99) mg/dL Calcium 8.2 L (8.4-10.2) mg/dL Magnesium 2.7 H (1.6-2.3) mg/dL Ferritin (22.0-322.0) ng/mL AST 1335 H (17-59) U/L ALT 742 H (4-49) U/L Lactate Dehydrogenase 3181 H (313-618) U/L Creatine Kinase 8963 H* (55-170) U/L C-Reactive Protein 17.8 H (<1.0) mg/dL Total Protein 4.8 L (6.3-8.2) g/dL Albumin 2.3 L (3.5-5.0) g/dL 07/17/20 07/17/20 Range/Units 05:50 05:54 WBC (3.8-10.6) k/uL RBC (4.30-5.90) m/uL Hgb (13.0-17.5) gm/dL Hct (39.0-53.0) % RDW (11.5-15.5) % D-Dimer (<0.60) mg/L FEU ABG pH 7.11 L* (7.35-7.45) ABG pCO2 76 H* (35-45) mmHg ABG pO2 75 L (83-108) mmHg ABG Total CO2 26 H (19-24) mmol/L ABG O2 Saturation 93.0 L (94-97) % Potassium (3.5-5.1) mmol/L Chloride (98-107) mmol/L BUN (9-20) mg/dL Creatinine (0.66-1.25) mg/dL Glucose (74-99) mg/dL POC Glucose (mg/dL) 200 H (75-99) mg/dL Calcium (8.4-10.2) mg/dL Magnesium (1.6-2.3) mg/dL Ferritin (22.0-322.0) ng/mL AST (17-59) U/L ALT (4-49) U/L Lactate Dehydrogenase (313-618) U/L Creatine Kinase (55-170) U/L C-Reactive Protein (<1.0) mg/dL Total Protein (6.3-8.2) g/dL Albumin (3.5-5.0) g/dL Microbiology - Last 24 Hours (Table) 07/12/20 17:39 Blood Culture - Preliminary Blood No Growth after 96 hours
--- NOTE | 2020-07-17 12:59 | P.OP ---
Date of Procedure: 07/17/20 Preoperative Diagnosis: Respiratory failure Postoperative Diagnosis: Respiratory failure Procedure(s) Performed: Revision tracheostomy Anesthesia: ROSIA Surgeon: Felipe Rodríguez Estimated Blood Loss (ml): 5 Pathology: none sent Condition: stable Disposition: ICU Description of Procedure: Patient's placed on the operative table in the supine position. He received Marycarmen. The patient had a previous tracheostomy. The skin sutures were cut. A week later Placed a wound. The tracheotomy was visualized. At this point the balloon was taken down on the tracheostomy tube. The old tracheostomy was withdrawn. The new tracheostomy tube was placed under direct vision into the tr achea. The balloon was inflated. End tidal CO2 was confirmed. The lateral margins of the skin incisions were closed with 2-0 nylon. The central portion was left open due to a small wound infection. Patient was sent back to the ICU in on the ventilator.
--- NOTE | 2020-07-17 13:33 | P.PN ---
Subjective Progress Note Date: 07/17/20 Principal diagnosis: Shortness of breath, cough 80-year-old male, seen in the emergency department, on June 27. The patient came in complaining of weakness, fatigue, shortness of breath, chest congestion, and nonproductive cough. He's been sick for at least 2 weeks. He tells me he tested positive on Thursday but he actually may have tested positive on June 17. Currently, the patient's on 6 L nasal cannula. He is not receiving any IV fluids. He has a history of asthma, coronary artery disease, chest pain, angina, diabetes mellitus, hypertension, hyperlipidemia, osteoarthritis, pneumonia, hepatitis C, bursitis, and previous bypass grafting. The patient denies ever smoking cigarettes. Current lab data includes a white count 6.4, hematocrit 43.4, hemoglobin 14.7, and a platelet count of 186,000. PT, INR and PTT are normal. Sodium 135, potassium 4.3, chlorides 100, CO2 25, anion gap 10, BUN 28, creatinine 1.68. LDH is 730, C-reactive protein is 85.9. A d-dimer was not done. N-terminal proBNP was 522. A chest x-ray done in the emergency department shows bilateral patchy infiltrates, consistent with coronavirus pneumonia. Progress note dated 06/29/2020. This is a 80-year-old patient who I saw yesterday in the emergency department, in consultation. The patient was moved over to room 152, and I saw the patient this morning in the observation unit. Currently, the patient's quite short of breath. He is lying on his right side. His saturations are in the high 70s, on 15 L nasal cannula, and nonrebreather mask. Is getting saline at 75 mL an hour since I saw him yesterday, the patient states that he feeling more short of breath. Does cough. The cough causes pain in the chest. He's not coughing up any phlegm. No fever or chills. He denies any chest pain or pressure. White count was 11.2 and hemoglobin 14.8, hematocrit 45.5, platelet count 233,000. Chest x-ray shows bilateral patchy infiltrates. Because the patient was sick for such a long period of time, he was not a candidate for REM. The patient will be moved to the intensive care unit, we can be watched more closely. The patient in the end, may require intubation and mechanical ventilation. Progress note dated 07/02/2020. This is a patient that I initially saw in consultation on June 28. He was admitted to the hospital on June 27. He was intubated for acute respiratory failure on June 29. I moved him to the ICU on June 29, because I knew he was going to deteriorate. The patient did receive both convalescent plasma and TOCI. Currently, he remains on the volume assist control mode, rate 28, tidal volume 450, FiO2 60%, PEEP of 18. Arterial blood gases on the same settings, except FiO2 70%, shows a pO2 of 121, pCO2 of 49, pH is 7.31. The patient's on vital high protein at 30 mL an hour which is goal, Nimbex at 0.5 mcg/kg/m, propofol at 40 mcg/kg/m, fentanyl at 0.25 mcg/kg/h, and saline at 75 mL an hour. White count is 12.4, hemoglobin 13.1, hematocrit 38.8, platelet count 366,000. D-dimer is 0.45, sodium 140, potassium 4.7, chlorides 110, CO2 24, anion gap 6, BUN 44, and creatinine 1.25. LDH is 704. Chest x-ray shows diffuse pleural parenchymal changes, which are stable. On 07/03/2020 patient seen in follow-up in the intensive care unit, he remains sedated, intubated on mechanical ventilator, current vent settings are assist- control with 28, tidal volume is 450, FiO2 60% and PEEP of 18, and this morning blood gases showed pO2 of 105, pCO2 of 51, and pH of 7.29 and subsequently FiO2 has been dropped to 50%, IV drips include 0.9 normal saline at 75 ML per hour, fentanyl drip is at 0.25 mics per kilo per minute, Nimbex is at 1 bertha per kilo per minute, propofol is at 50 mics per kilo per minute, and proximal is currently on hold. Activities are vital high protein and 42 with a goal of 42. Today's chest x-ray has been reviewed showing diffuse pleural parenchymal changes correlating for interstitial pneumonia, stable in appearance. Is labs have been reviewed, white count is 15.9, hemoglobin is 14.9, lymphocyte count 0.5, d-dimer 0.57, sodium is 140, potassium is 4.9, chloride is 109, CO2 is 22, LDH has trended up slightly up to 951 from 704, no CRP value available today. Patient is afebrile, hemodynamically stable, in sinus mechanism with a rate of 50 BPM. Cultures have been negative. he remains on IV steroids Solu-Medrol 60 every 6 hours, vitamins, is status post transfusion with 1 unit of convalescent plasma and Tocilizumab On 07/17/2020 patient seen in follow-up in intensive care unit, he remains sedated, on mechanical ventilator, and patient is status post tracheostomy and PEG tube placement on 07/10/2020, patient's ship pilot balloon Was inadvertently ripped off and and unclear circumstances, and patient was losing volume and currently his ship pilot balloon is clamped off with a hemostat, current ventilator settings are assist-control mode of ventilation with a rate of 34, tidal volume is 420, FiO2 of 100%, and PEEP of 20. This morning his blood gases on those settings showed pO2 of 75, pCO2 of 76, and pH is 7.11, current drips include Precedex at 0.6 mics per kilo per hour, fentanyl infusion is at 1.5 mics per kilo per hour, and a bicarbonate infusion with D5W with 3 A of bicarbonate at a rate of 150 ML per hour. Patient is currently on cefepime for evidence of Klebsiella oxytoca in the sputum. Patient also remains on Levothroid infusion at 0.22 mics per kilo per minute which is around 30 mics per minute. His renal function has worsened on today's labs, in his BUN is 103, and creatinine is 2.36 , potassium is 5.8, chloride is 113, AST is up to 1335, ALT 742, and LDH is up to 3181, and his total CK is 8963, CRP of 17.8. His urine output is minimal at this point, and the patient is making around 5-20 ML per hour. In atrial fibrillation, and his heart rate is fluctuating between 92-112 BPM. Discussed the case with surgery and it would be extremely risky to replace the tracheostomy at the bedside, and we asked to surgery to replace the tracheostomy in the OR which will be done today. His clinical condition continues to deteriorate, and his prognosis at this time is quite poor and guarded Objective - Vital Signs Vital signs: Vital Signs Temp 98.4 F 07/17/20 08:00 Pulse 101 H 07/17/20 12:00 Resp 34 H 07/17/20 12:00 BP 112/64 07/17/20 12:30 Pulse Ox 97 07/17/20 12:00 Intake & Output 07/16/20 07/17/20 07/17/20 18:59 06:59 18:59 Intake Total 3236.579 6144.832 2921.968 Output Total 1005 295 75 Balance 803.483 4348.832 2846.968 Weight 143 kg 143.7 kg Intake: IV 421 762 1623 Dextrose 5% in Water 1, 150 900 375 000 ml @ 75 mls/hr IV . [id number] NAEEM with Sodium Bicarb (1 Meq/ml) 150 ml Rx#:[id number] Pressure bag 56 36 15 Sodium Chloride 0.9% 1, 100 000 ml @ 20 mls/hr IV . Q24H NAEEM Rx#:[id number] Sodium Chloride 0.9% 1, 2000 000 ml @ 999 mls/hr IV . Q1H1M NAEEM Rx#:[id number] Intake, IV Titration 012.331 7885.832 79.968 Amount Cisatracurium 200 mg In 21.164 178.464 Sodium Chloride 0.9% 180 ml @ 1 MCG/KG/MIN 8.58 mls/hr IV .[id number] NAEEM Rx #:[id number] Dexmedetomidine/0.9% NaCl 200.000 300 (Pmx) 400 mcg In Empty Bag 1 bag @ Titrate IV . Q0M NAEEM Rx#:[id number] Norepinephrine 8 mg In 0 Sodium Chloride 0.9% 250 ml @ 0.05 MCG/KG/MIN 13. 061 mls/hr IV .[id number] NAEEM Rx#:[id number] Norepinephrine 8 mg In 51.743 454.464 79.968 Sodium Chloride 0.9% 250 ml @ 0.05 MCG/KG/MIN 13. 835 mls/hr IV .[id number] NAEEM Rx#:[id number] fentaNYL (PF). 1,000 mcg 230.096 269.904 In Sodium Chloride 0.9% 80 ml @ Per Protocol IV . Q0M NAEEM Rx#:[id number] Tube Feeding 689 949 292 Other 60 110 60 Output: Chest Tube Drainage 600 0 Right Anterior Chest 600 0 Urine 405 295 65 Estimated Blood Loss 10 Other: Voiding Method Indwelling Catheter Indwelling Catheter ABP, PAP, CO, CI - Last Documented Arterial Blood Pressure 80/69 - Exam GENERAL EXAM: Sedated, intubated, 80-year-old white male, on assist control mode of ventilation, with FiO2 100% and PEEP of 20, comfortable in no apparent distress. HEAD: Normocephalic/atraumatic. EYES: Normal reaction of pupils, equal size. Conjunctiva pink, sclera white. NOSE: Clear with pink turbinates. THROAT: No erythema or exudates. NECK: No masses, no JVD, no thyroid enlargement, no adenopathy. Midline tracheostomy is in place, and the trach ship pilot balloon has been torn off and there is currently hemostats in place CHEST: No chest wall deformity. Symmetrical expansion. LUNGS: Equal air entry with no crackles, wheeze, rhonchi or dullness. CVS: Regular rate and rhythm, normal S1 and S2, no gallops, no murmurs, no rubs ABDOMEN: Soft, nontender. No hepatosplenomegaly, normal bowel sounds, no guarding or rigidity. PEG tube in place and patient is on nutritional support with VItal high protein at 73 with a goal of 73 and standard water flushes. EXTREMITIES: No clubbing, increased generalized edema, 1-2+ in bilateral upper and lower extremities, and trunk, no cyanosis, 2+ pulses and upper and lower extremities. MUSCULOSKELETAL: Muscle strength and tone normal. SPINE: No scoliosis or deformity SKIN: No rashes CENTRAL NERVOUS SYSTEM: Sedated. No focal deficits, tone is normal in all 4 extremities. - Labs CBC & Chem 7: 07/17/20 04:45 07/17/20 04:45 Labs: Abnormal Lab Results - Last 24 Hours (Table) 07/16/20 07/16/20 07/16/20 Range/Units 04:45 15:07 18:33 WBC (3.8-10.6) k/uL RBC (4.30-5.90) m/uL Hgb (13.0-17.5) gm/dL Hct (39.0-53.0) % RDW (11.5-15.5) % D-Dimer (<0.60) mg/L FEU ABG pH 7.10 L* (7.35-7.45) ABG pCO2 73 H* (35-45) mmHg ABG pO2 (83-108) mmHg ABG Total CO2 25 H (19-24) mmol/L ABG O2 Saturation (94-97) % Potassium (3.5-5.1) mmol/L Chloride (98-107) mmol/L BUN (9-20) mg/dL Creatinine (0.66-1.25) mg/dL Glucose (74-99) mg/dL POC Glucose (mg/dL) 159 H (75-99) mg/dL Calcium (8.4-10.2) mg/dL Magnesium (1.6-2.3) mg/dL Ferritin 1604.3 H (22.0-322.0) ng/mL AST (17-59) U/L ALT (4-49) U/L Lactate Dehydrogenase (313-618) U/L Creatine Kinase (55-170) U/L C-Reactive Protein (<1.0) mg/dL Total Protein (6.3-8.2) g/dL Albumin (3.5-5.0) g/dL 07/16/20 07/17/20 07/17/20 Range/Units 23:58 04:45 04:45 WBC 2.7 L (3.8-10.6) k/uL RBC 3.93 L (4.30-5.90) m/uL Hgb 11.8 L (13.0-17.5) gm/dL Hct 37.1 L (39.0-53.0) % RDW 16.5 H (11.5-15.5) % D-Dimer 15.61 H (<0.60) mg/L FEU ABG pH (7.35-7.45) ABG pCO2 (35-45) mmHg ABG pO2 (83-108) mmHg ABG Total CO2 (19-24) mmol/L ABG O2 Saturation (94-97) % Potassium (3.5-5.1) mmol/L Chloride (98-107) mmol/L BUN (9-20) mg/dL Creatinine (0.66-1.25) mg/dL Glucose (74-99) mg/dL POC Glucose (mg/dL) 174 H (75-99) mg/dL Calcium (8.4-10.2) mg/dL Magnesium (1.6-2.3) mg/dL Ferritin (22.0-322.0) ng/mL AST (17-59) U/L ALT (4-49) U/L Lactate Dehydrogenase (313-618) U/L Creatine Kinase (55-170) U/L C-Reactive Protein (<1.0) mg/dL Total Protein (6.3-8.2) g/dL Albumin (3.5-5.0) g/dL 07/17/20 07/17/20 07/17/20 Range/Units 04:45 05:50 05:54 WBC (3.8-10.6) k/uL RBC (4.30-5.90) m/uL Hgb (13.0-17.5) gm/dL Hct (39.0-53.0) % RDW (11.5-15.5) % D-Dimer (<0.60) mg/L FEU ABG pH 7.11 L* (7.35-7.45) ABG pCO2 76 H* (35-45) mmHg ABG pO2 75 L (83-108) mmHg ABG Total CO2 26 H (19-24) mmol/L ABG O2 Saturation 93.0 L (94-97) % Potassium 5.8 H (3.5-5.1) mmol/L Chloride 113 H (98-107) mmol/L BUN 103 H* (9-20) mg/dL Creatinine 2.36 H (0.66-1.25) mg/dL Glucose 179 H (74-99) mg/dL POC Glucose (mg/dL) 200 H (75-99) mg/dL Calcium 8.2 L (8.4-10.2) mg/dL Magnesium 2.7 H (1.6-2.3) mg/dL Ferritin (22.0-322.0) ng/mL AST 1335 H (17-59) U/L ALT 742 H (4-49) U/L Lactate Dehydrogenase 3181 H (313-618) U/L Creatine Kinase 8963 H* (55-170) U/L C-Reactive Protein 17.8 H (<1.0) mg/dL Total Protein 4.8 L (6.3-8.2) g/dL Albumin 2.3 L (3.5-5.0) g/dL 07/17/20 Range/Units 11:43 WBC (3.8-10.6) k/uL RBC (4.30-5.90) m/uL Hgb (13.0-17.5) gm/dL Hct (39.0-53.0) % RDW (11.5-15.5) % D-Dimer (<0.60) mg/L FEU ABG pH (7.35-7.45) ABG pCO2 (35-45) mmHg ABG pO2 (83-108) mmHg ABG Total CO2 (19-24) mmol/L ABG O2 Saturation (94-97) % Potassium (3.5-5.1) mmol/L Chloride (98-107) mmol/L BUN (9-20) mg/dL Creatinine (0.66-1.25) mg/dL Glucose (74-99) mg/dL POC Glucose (mg/dL) 175 H (75-99) mg/dL Calcium (8.4-10.2) mg/dL Magnesium (1.6-2.3) mg/dL Ferritin (22.0-322.0) ng/mL AST (17-59) U/L ALT (4-49) U/L Lactate Dehydrogenase (313-618) U/L Creatine Kinase (55-170) U/L C-Reactive Protein (<1.0) mg/dL Total Protein (6.3-8.2) g/dL Albumin (3.5-5.0) g/dL Microbiology - Last 24 Hours (Table) 07/12/20 17:39 Blood Culture - Preliminary Blood No Growth after 96 hours Assessment and Plan Plan: Assessment: #1. Acute hypoxic respiratory failure secondary to Coumadin 19 pneumonia, with significantly worsening oxygenation, status post intubation on , status post convalescent plasma and Tocilizumab. Status post tracheostomy and PEG tube placement on 07/10/2020, and the tracheostomy was replaced today on 07/17/2020 because the tracheostomy ship pilot balloon was torn off, he was desaturating and losing volume #2. Acute kidney injury related to ATN #3. Sepsis related to a bacterial pneumonia, sputum cultures positive for Klebsiella Oxytoca, currently on cefepime #4. Septic shock, patient was fluid resuscitated, currently remains on Levophed at 30 mics per minute on 07/17/2020 #5. Shock liver #6. Rhabdomyolysis #7. Elevated d-dimer, due to hypercoagulable state, however patient is not on any anticoagulation at this time related to low platelet count, fibrinogen level is within normal limits #8. History of chronic bronchial asthma #9. Nonsmoker #10. History of CAD, status post bypass grafting #11. History of diabetes mellitus #12. Hyperlipidemia #13. Hypertension #14. Hepatitis C #15. History of hypothyroidism #16. History of osteoarthritis Plan: Discussed case with surgery and tracheostomy has been exchanged Continue with current ventilator settings Weaning FiO2 to keep O2 sats ration at or above 90% Remains on vasopressor support, and levo fed is currently at 30 mics per minute Same antibiotics There is evidence of worsening kidney function, and liver injury and possibility of shock liver on today's labs Nephrology consultation Awaiting platelet count Continue mechanical DVT prophylaxis Continue nutritional support Overall prognosis is extremely poor and guarded and patient continues to show signs of worsening clinical status We will discuss his condition with his family I performed a history & physical examination of the patient and discussed their management with my nurse practitioner, Jewell Marquez. I reviewed the nurse practitioner's note and agree with the documented findings and plan of care. Lung sounds are positive for bilateral crackles. The findings and the impression was discussed with the patient. I attest to the documentation by the nurse practitioner. Time with Patient: Greater than 30
[2020-07-17 14:08] LABS: Band Neutrophils % 8 %; Eosinophils # (M) 0.23 k/uL (0-0.7); Lymphocytes # (M) 1.07 k/uL (1.0-4.8); Monocytes # (M) 0.08 k/uL (0-1.0); Neutrophils % (M) 39 %; Nucleated Red Blood Cells 4 /100 WBC (0-0); Total Cells Counted 100; WBC 2.6 k/uL (3.8-10.6)
[2020-07-17 14:09] LABS: Polychromasia Present
[2020-07-17] MEDS ORDERED: DEXTROSE 50% SYRINGE 50 ML IVP STA (14:43)
[2020-07-17] MEDS ORDERED: INSULIN REGULAR 100 UNIT/ML VIAL IV ONE (15:00)
[2020-07-17 18:03] LABS: Glucose,Whole Blood 196 mg/dL (75-99)
[2020-07-17 20:44] LABS: Glucose,Whole Blood 118 mg/dL (75-99)
[2020-07-17] MEDS: CEFEPIME 1 GM in SODIUM CHLORIDE 0.9% 50 ML IVPB SCH (21:08)
[2020-07-18 00:06] LABS: Glucose,Whole Blood 124 mg/dL (75-99)
[2020-07-18 00:11] LABS: Glucose,Whole Blood 141 mg/dL (75-99)
[2020-07-18] MEDS: INSULIN ASPART (NovoLOG) 100 UNIT/ML VIAL SQ SCH ×2 (00:17→07:04)
[2020-07-18] MEDS ORDERED: SODIUM CHLORIDE 0.9% 150 ML with VASOPRESSIN 60 UNIT IV SCH ×2 (00:30)
[2020-07-18] MEDS: NOREPINEPHRINE 8 MG in SODIUM CHLORIDE 0.9% 250 ML IV SCH ×4 (00:39→10:08)
[2020-07-18] MEDS: fentaNYL (PF). 1,000 MCG in SODIUM CHLORIDE 0.9% 80 ML IV SCH ×2 (02:27→07:32)
[2020-07-18] MEDS: DEXTROSE 5% IN WATER 1,000 ML with SODIUM BICARB (1 MEQ/ML) 150 ML IV SCH (02:33)
[2020-07-18] MEDS: DEXMEDETOMIDINE/0.9% NACL(PMX) 400 MCG in EMPTY BAG 1 BAG IV SCH (03:32)
[2020-07-18 04:00] LABS: Anisocytosis Slight; HCT 38.4 % (39.0-53.0); HGB 11.9 gm/dL (13.0-17.5); Hypochromasia Marked; MCH 29.7 pg (25.0-35.0); MCV 95.9 fL (80.0-100.0); Mean Platelet Volume 15.8; Poikilocytosis Slight; RDW 16.4 % (11.5-15.5)
[2020-07-18 04:09] VITALS: BP 71/27; RESP 34
[2020-07-18 04:11] LABS: Ferritin 2882.5 ng/mL (22.0-322.0)
[2020-07-18 04:47] LABS: Band Neutrophils % 36 %; Metamyelocytes % 2 %; Myelocytes % 4 %; Neutrophils % (M) 32 %; Nucleated Red Blood Cells 50 /100 WBC (0-0); Total Cells Counted 200
[2020-07-18 04:48] LABS: Eosinophils # (M) 0.07 k/uL (0-0.7); Lymphocytes # (M) 0.66 k/uL (1.0-4.8); Metamyelocytes # (M) 0.07 k/uL (0); Monocytes # (M) 0.13 k/uL (0-1.0); Myelocytes # (M) 0.13 k/uL (0); WBC 3.3 k/uL (3.8-10.6)
[2020-07-18 04:49] LABS: Anisocytosis (M) Present; Platelet Count 17 k/uL (150-450)
[2020-07-18 05:47] LABS: Glucose,Whole Blood 100 mg/dL (75-99)
[2020-07-18 06:08] LABS: ABG Base Excess -14.2 mmol/L; ABG HCO3 17 mmol/L (21-25); ABG Oxygen Saturation 96.2 % (94-97); ABG PCO2 66 mmHg (35-45); ABG PO2 101 mmHg (83-108); ABG TCO2 19 mmol/L (19-24); Allen Test Performed? Yes
[2020-07-18 06:11] LABS: ABG PH 7.02 (7.35-7.45)
[2020-07-18] MEDS: INSULIN DETEMIR (LEVEMIR) 100 UNIT/ML SYR SQ SCH (07:05)
[2020-07-18] MEDS: LEVOTHYROXINE 75 MCG TAB PO SCH (07:07)
[2020-07-18] MEDS: amLODIPine 10 MG TAB PO SCH (07:52)
[2020-07-18] MEDS: ASCORBIC ACID 500 MG TAB PO SCH (07:53)
[2020-07-18] MEDS: CHOLECALCIFEROL 25 MCG (1000 IU) TABLET PO SCH (07:53)
[2020-07-18] MEDS: CHLORHEXIDINE GLUCONATE 15 ML CUP MUCOUS MEM SCH (07:53)
[2020-07-18] MEDS: MULTIVITAMINS, THERA 1 EACH TAB PO SCH (07:53)
[2020-07-18] MEDS: PANTOPRAZOLE 40 MG/10 ML VIAL IVP SCH (07:53)
[2020-07-18] MEDS: predniSONE 20 MG TAB PO SCH (07:54)
[2020-07-18] MEDS: ZINC SULFATE 220 MG CAP PO SCH (07:54)
[2020-07-18] MEDS: CISATRACURIUM 200 MG in SODIUM CHLORIDE 0.9% 180 ML IV SCH (08:12)
[2020-07-18] MEDS: SENNOSIDES-DOCUSATE SODIUM 1 EACH TAB PO SCH (08:14)
[2020-07-18] MEDS: ALBUTEROL HFA INHALER INHALATION SCH ×2 (08:18→13:28)
[2020-07-18] MEDS: METOPROLOL TARTRATE 25 MG TAB PO SCH (08:19)
[2020-07-18 08:20] LABS: Albumin 2.1 g/dL (3.5-5.0); Calcium 7.6 mg/dL (8.4-10.2); Total Bilirubin 2.1 mg/dL (0.2-1.3); Total Protein 4.4 g/dL (6.3-8.2)
[2020-07-18 08:48] LABS: Potassium 7.7 mmol/L (3.5-5.1)
[2020-07-18 08:50] LABS: C Reactive Protein 14.6 mg/dL (<1.0)
[2020-07-18 08:51] VITALS: TEMP 98.1
[2020-07-18] MEDS ORDERED: ATROPINE OPHTH SOLN 1% 5ML BTL SUBLINGUAL PRN (09:03)
[2020-07-18] MEDS ORDERED: MORPHINE SULFATE 2 MG/ML SYRINGE IV PRN (09:03)
[2020-07-18] MEDS ORDERED: MORPHINE SULFATE (100 MG/2 ML) 100 MG in SODIUM CHLORIDE 0.9% 100 ML IV SCH (09:15)
--- NOTE | 2020-07-18 09:53 | XR ---
EXAMINATION TYPE: XR chest 1V portable DATE OF EXAM: 07/18/2020 COMPARISON: Chest x-ray 07/17/2020 HISTORY: Covid pneumonia TECHNIQUE: Single frontal view of the chest is obtained. FINDINGS: Right-sided chest tube, tracheostomy tube, left subclavian central venous catheter are ove rlying appropriate positions. Metallic clamp is no longer seen. No evident pneumothorax on the left, small right apical pneumothorax is present, there are overlying artifacts related no evident pleural effusion. Patient is post median sternotomy. Cardiomediastinal silhouette is stable. IMPRESSION: Correlate for pneumonia. Minimal right apical pneumothorax.
[2020-07-18] MEDS: CEFEPIME 1 GM in SODIUM CHLORIDE 0.9% 50 ML IVPB SCH (10:10)
[2020-07-18] MEDS: polyethylene glycoL 3350 17 GM POWD.PACK PO SCH (10:10)
[2020-07-18 11:30] VITALS: PULSE 61
--- NOTE | 2020-07-18 11:37 | P.DS ---
Providers Date of admission: 06/28/20 00:35 Expected date of discharge: 07/18/20 Attending physician: Shashank Benites Consults: 06/28/20 00:37 Consult Physician Routine Consulting Provider: Cristel Dumont Consult Reason/Comments: covid Do you want consulting provider notified?: Yes 07/09/20 08:06 Consult Physician Routine Consulting Provider: Felipe Rodríguez Consult Reason/Comments: trach and peg, COVID hypoxia Do you want consulting provider notified?: Yes 07/17/20 10:08 Consult Physician Routine Consulting Provider: Mercedes Brown Consult Reason/Comments: BABLINA Do you want consulting provider notified?: Yes Primary care physician: [facility] Course: HISTORY OF PRESENT ILLNESS This is a 80-year-old male patient of Dr. 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 Patient states that he has had symptoms for 2 weeks which include body aches, shortness of breath coming foggy thinking. He denies any nausea, vomiting or diarrhea. He states he has had sputum production. He denies any lower extremity edema. Patient does not have home oxygen. Patient presented to [facility] for evaluation. Chest x-ray reveals bibasilar patchy opacities consistent with multifocal infection. No pleural effusions or pneumothorax. Temperature 100.1, heart rate 75, respiratory rate 24, blood pressure 125/63 and pulse ox 83% on room air. EKG was a sinus rhythm at 66 bpm. CBC was unremarkable except for lymphocytosis of 0.5. INR 1.0. Sodium 135, BUN 28 creatinine 1.68. Blood sugar 202. Lactic acid 1.6. Liver function tests were normal. LDH 730. C- reactive protein and a 5.9. ProBNP 522. 4/2: Patient is seen today on the observation unit as an overflow. Pulse ox is 84% on 15 L hyponasal cannula and nonrebreather. Patient seems to have more shortness of breath today and also complains of wheezing. No significant cough production. No fever or chills. No chest pain. WBC 11.2, hemoglobin 14.8, platelet count 233. Repeat chest x-ray reveals findings consistent with pneumonia. Pro-calcitonin 0.12. Blood sugars running in the 200s. Patient to be moved to the intensive care unit. 06/30: Patient declined significantly in the afternoon yesterday ended up on mechanical ventilation, he been sedated currently his marker are still quite bit high. Patient still required high demand O2 along with high PEEP of 15-20 to keep his pulse ox at the margin of 90 percentile. His blood sugars mildly elevated and still been managed on insulin, white blood cell is up to 13,000 today, his blood gas shows pO2 of 653 only. CO2 of 27 and pH of 7.31 creatinine has slightly improved since yesterday he C-reactive protein is up to 144 and LDH of 748. 07/01: Patient is still on mechanical ventilation is FiO2 is down to 70% still on PEEP of 18 I had long discussion with the and update her on with outpatient patient's condition still guarded this point his prognosis still not good but he has slight improvement compared to yesterday, his kidney function has improved slightly bit compared to yesterday as well. 07/02: Patient remains in the ICU. Patient is intubated and on mechanical ventilation with tidall volume 450,, FiO2 60%, PEEP of 18 which is improved from yesterday. He is pulse oxing 92-95%. He has been afebrile, heart rate in the 40s, respiratory rate 28, blood pressure 148/67. bus monitor is sinus bradycardia. Repeat lab work reveals WBC 12.4, hemoglobin 13.1, platelet count 266. Sed rate 33. D-dimer 0.45. Sodium 140, potassium 4.7, chloride 110, CO2 24, BUN 44 and creatinine 0.25. Blood sugars running between 197 and 248. Ferritin 629.9. LDH 704. He is currently nothing by mouth. 07/03: Patient has been afebrile, heart rate 61, blood pressure 177/104, pulse ox 97%. Patient remains intubated and on mechanical ventilation with tidal volume 450, FiO2 60, PEEP of 18. Repeat blood work reveals WBC 15.9, hemoglobin 14.9, platelet count 341. Lymphocytes 0.5. Sodium 140, potassium 4.9, chloride 109, CO2 22, BUN 44 and creatinine 1. LDH 951. Liver function tests normal. Blood sugars running between 221 and 299. Levemir will be increased to 20 units twice daily and scheduled NovoLog will be increased to 7 units every 6 hours along with NovoLog scale continued. Tube feedings are at goal. Repeat chest x-ray reveals diffuse pleural parenchymal changes correlate for interstitial pneumonia is stable. Dr. Beverly has stopped Nimbex and Cleviprex. 07/04: Heart rate has been running in the 40s and Lopressor decreased from 50 mg twice daily to 25 mg twice daily and parameters to hold if heart rate is less than 55. Blood pressure is still been an issue and patient was weaned off Cleviprex. She remains intubated and on mechanical ventilation with tidal volume 520, FiO2 60, PEEP of 18. Blood sugar was still running high until this morning, this morning's blood sugar 194. Adjustments were made to his insulin yesterday and tube feeding dose decreased today. Will hold on making any further changes with insulins. Repeat blood work reveals sed rate of 90, d- dimer 0.73. Sodium 141, potassium 4.6, chloride 112, CO2 25, BUN 43, creatinine 1.10. Ferritin 683.9. LDH 745. Repeat chest x-ray reveals diffuse bilateral airspace disease stable correlate for diffuse pneumonia, ARDS versus pulmonary edema. 07/05: Patient remains intubated and on mechanical ventilation with tidal volume 450, FiO2 60 and PEEP of 20. Patient has been afebrile, heart rate in the 40s, respiratory rate 28, blood pressure 134/60, pulse ox 98%. Lopressor is not been given at a lower rate due to bradycardia. Repeat blood work reveals WBC 13.6, hemoglobin 13.6, platelet count 292. Blood sugars running between 148 and 179. 07/06: Patient remains in the intensive care unit intubated and on mechanical ventilation with tidal volume 450, FiO2 60, PEEP of 20. He is on propofol and fentanyl. He is also currently on Cleviprex. Repeat chest x-ray reveals diffuse interstitial infiltrates are stable. WBC 14.2, hemoglobin 14.2, platelet count 292. Creatinine 0.97 and BUN 48. Blood sugars running between 165 an 187. Patient may require PEG tube and trach. 07/07: Repeat chest x-ray reveals mild improving nonspecific infiltrate can be compatible with atypical pneumonia. He remains in the intensive care unit intubated and on mechanical ventilation with tidal volume 450, FiO2 decreased to 50% and PEEP of 16. He is still on Cleviprex. He remains on sedation. He is tolerating tube feedings. Repeat blood work reveals WBC 9.1, hemoglobin 12.3, platelet count 244. D-dimer 1.35. BUN 41 creatinine 0.86. Blood sugars running between 146 and 168. C-reactive protein 7.9. CK 52. 07/08: Patient remains in the intensive care unit. He is on propofol and Ventolin. He is on mechanical ventilation with tidal volume 450, FiO2 50%, PEEP down to 16. Tube feedings are 10 MLS per hour at goal. POO 97%, HR improved and patient received lopressor last night and this morning. He as been afebrile. BP 148/72 and on Cleviprex. WBC 14.3. D-dimer 1.92. BUN 48 and creatinine 0.93. Calcium 8.2. Ferritin 548.2. Liver function tests are normal. LDH 1224. CK 65. C-reactive protein 6.6. 07/09: Patient remains intubated and on mechanical ventilation with tidal volume 450, FiO2 50 and PEEP of 16. Amlodipine was increased to [address] Dumont for blood pressure control. Patient remains on Cleviprex. Patient is also on fentanyl and propofol. Patient is also on tube feedings. Patient is on IV Lasix and IV Solu-Medrol. Proceeding has been consulted for PEG and trach placement. Repeat chest x-ray reveals diffuse bilateral predominantly interstitial infiltrates with basilar consolidative infiltrate stable. Patient has been afebrile, heart rate 52, blood pressure 149/74, pulse ox 89%. Repeat blood work reveals WBC 12.3, hemoglobin 13.7. D-dimer 2. Sodium 136, potassium 4.3, chloride 110, CO2 22, BUN 45 and creatinine 0.85. Sugars are running 136- 152. Ferritin 518.4. LDH 949, CK 52. C-reactive protein 7.3. 07/10: She remains intubated and on mechanical ventilation with tidal volume 380, FiO2 50, PEEP of 14 which is down from yesterday. Patient is scheduled for PEG tube and trach insertion today. He has been afebrile, heart rate in the 50s, blood pressure 129/69, pulse ox 93%. Repeat blood work reveals WBC 11.3, hemoglobin 14.6. Electrolytes normal. Creatinine 0.81. Blood sugars are running between 100 2244. LDH 925, CK 52, C-reactive protein 7.4. 07/11: Patient underwent trach and PEG tube placement yesterday with Dr. Rodríguez. He is currently on vent settings with tidal volume 650, FiO2 of 50%, PEEP of 12. Patient has been afebrile, heart rate in the 40s and 50s, blood pressure 105/54, pulse ox 87%. Repeat blood work reveals platelet count 149. Electrolytes normal, BUN 47 creatinine 0.85. Blood sugars running between 124 and 138. LDH 1073, CK 81, C-reactive protein 15.1. D-dimer 1.77. Prognosis remains guarded. 07/12: Patient remains in the intensive care unit on mechanical ventilation with pulse ox of 85% with tidal volume 700, FiO2 80 and PEEP of 14. Repeat blood work reveals WBC 5.8, hemoglobin 13.8, platelet count 104. D-dimer 1.22. Sodium 138, potassium 3.3, chloride 106, CO2 27, BUN 56 and creatinine 1.17. LDH 1077. C-reactive protein 62.2. Repeat chest x-ray reveals improvement in lung volume, aeration. Patient has been tolerating tube feedings which were started yesterday. No residuals. Patient has small amount of bleeding at the tracheostomy site. Patient is on IV antibiotics in form of cefepime. Sputum culture is in progress. 07/13: Patient remains on mechanical ventilation. His pulse ox is 90% on FiO2 of 90, pressure control of 18, PEEP of 16. Patient has been afebrile, heart rate 60s, blood pressure 124/62. Blood pressure has been running low and he is status post 2 L of IV fluid. Patient is on a low-dose of levo fed. EP blood work reveals WBC 5.5, hemoglobin 11.2, platelet count 62. D-dimer 1.35. Potassium 3.3 and was replaced. BUN 65 and creatinine 1.43. Blood sugars 121- 186. LDH 1564, CK 680, C-reactive protein 220. Repeat chest x-ray reveals bilateral interstitial and alveolar infiltrate stable. Sputum culture is positive for Klebsiella and patient is on cefepime. Patient is tolerating tube feedings. Fecal management system is in place. Patient had more bleeding from his trach site during the night. 07/14 patient remains in the ICU on mechanical ventilation on pressure control would want to treat her with pressure control of 18 PEEP 16 FiO2 100% with a respiratory rate of 20. Patient is currently on Precedex and fentanyl for sedation. No sedation tomorrow today. Patient continues to require minimal amount of levo fed. Patient was desaturating to 90% on 100% FiO2 with the pressure of 96/59. Data blood gas obtained during suggest a pH of 7.3 pCO2 51 and pO2 52 bicarb 26 lapses as a potassium of 2.9 chloride 112 creatinine 1.37 glucose 137 calcium 7.6 increased inflammation marker with LDH at 1694 increased from prior,'s true calcitonin 0.26 triglycerides 04/06/1931 LDH 1694. D-dimer is elevated at 1.48. Platelet has decreased to 38. Fibrinogen is normal at 368 APTT 40.5 INR 1.3.e Patient has been afebrile for 24 hours. Vancomycin is discontinued patient continues to be on cefepime 2 g every 12 hours for Klebsiella Pneumonia. Aspirin, Lipitor and fenofibrate discontinued. Enteral feeding continued for nutrition. 07/15 patient's remain in the ICU on mechanical ventilation on Precedex and fentanyl. He remains on pressure controlled PEEP of 20 any FiO2 of 100% respiratory rate 20. On assessment the patient's chest x-ray does show diffuse bilateral pulmonary infiltrates consistent with ARDS. Labs reevaluated patient's LDH is 20 56 CRP 22.8 CPK was mildly elevated at 927. Ferritin is high. Patient is currently off pressors. DIC panel was sent pending fibrillation is 67. Blood culture so far is negative. D-dimer is 5.4. Co ntinues to leukopenic hemoglobin stable at 10.8 continue cefepime for Klebsiella pneumonia. Patient has minimal movement on painful stimulus and has no purposeful movement. Did have multiple bowel movements for which C. diff has been checked. 07/16: Patient remains in the intensive care unit, remains on mechanical ventilation with tidal volume 400, FiO2 100, peak 20. Chest x-ray this morning revealed a 20% right-sided pneumothorax. Patient underwent right-sided chest tube placement this morning for acute barotrauma with right-sided pneumothorax secondary to carotid 19 pneumonia and high PEEP. Patient has been afebrile, heart rate 82, blood pressure 95/55, pulse ox 84%. WBC 1.7, hemoglobin 10.6, platelet count 31. D-dimer 10.9. Sodium 146, potassium 4.6, chloride 116, CO2 26, BUN 76 and creatinine 1.64. Magnesium 2.7. AST 129, ALT 42, alkaline phosphatase 96. LDH 2071. CK 2753. C-reactive protein 20.5. 07/17: Patient remains intubated and on mechanical ventilation with FiO2 100% and PEEP of 20. There is a problem with patient's trach which sounds like it needs to be replaced. General surgery is following. Patient has had worsening of his renal function with BUN of 103 and creatinine of 2.36, potassium 5.8. Consult in place with nephrology. Blood sugars are running between 159 and 200. WBC 2.7, hemoglobin 11.8. Fibrinogen 451. D-dimer 15.6. C-reactive protein 8963. C-reactive protein 17.8. LDH 3181. AST is 1335. ALT 742. 07/18: Patient was made comfort care and family have been at bedside. Patient passed on 07/18. Please see nursing documentation for detail. ASSESSMENT AND PLAN 1. Acute hypoxic respiratory failure secondary to COVID19 pneumonia and Klebsiella pneumonia. 2. Klebsiella pneumonia. 3. Acute kidney injury with chronic kidney disease stage III. 4. History of coronary artery disease status post CABG, stable. 5. Diabetes mellitus type 2, uncontrolled with hyperglycemia secondary to steroids. 6. Hypertension. 7. Hyperlipidemia. 8. Hypothyroidism. 9. Bradycardia. 10. Severe protein calorie malnutrition secondary to extended intubation. 11. Thrombocytopenia secondary to Covid. 12. New onset atrial fibrillation, paroxysmal atrial fibrillation. 13. Acute barotrauma with right-sided pneumothorax secondary to Covid 19 pneumonia and high PEEP status post right-sided chest tube placement. Impression and plan of care have been directed as dictated by the signing physician. Mihaela Roberts nurse practitioner acting as scribe for signing physician. Patient Condition at Discharge: Undetermined Plan - Discharge Summary Discharge Rx Participant: No New Discharge Prescriptions: No Action Aspirin [Adult Low Dose Aspirin EC] 81 mg PO HS Metoprolol Tartrate [Lopressor] 50 mg PO BID Multivitamins, Thera [Multivitamin (formulary)] 1 tab PO DAILY Levothyroxine Sodium [Synthroid] 75 mcg PO DAILY allopurinoL [Zyloprim] 150 mg PO HS Pioglitazone [Actos] 30 mg PO DAILY amLODIPine [Norvasc] 5 mg PO DAILY #30 tab Atorvastatin [Lipitor] 80 mg PO HS Fenofibrate [Lofibra] 160 mg PO DAILY Discharge Medication List Aspirin [Adult Low Dose Aspirin EC] 81 mg PO HS 11/20/16 [History] Metoprolol Tartrate [Lopressor] 50 mg PO BID 11/20/16 [History] Multivitamins, Thera [Multivitamin (formulary)] 1 tab PO DAILY 11/20/16 [History] Levothyroxine Sodium [Synthroid] 75 mcg PO DAILY 02/16/18 [History] Pioglitazone [Actos] 30 mg PO DAILY 01/18/19 [History] allopurinoL [Zyloprim] 150 mg PO HS 01/18/19 [History] amLODIPine [Norvasc] 5 mg PO DAILY #30 tab 01/20/19 [Rx] Atorvastatin [Lipitor] 80 mg PO HS 06/28/20 [History] Fenofibrate [Lofibra] 160 mg PO DAILY 06/28/20 [History] Follow up Appointment(s)/Referral(s): Shashank Benites MD [Primary Care Provider] - 1-2 days
[2020-07-18 12:59] VITALS: BMI 47.3
[2020-07-18 23:56] LABS: Hepatitis B Surface Antibody Reactive (Non-Reactive); Hepatitis B Surface Antigen Non-Reactive (Non-Reactive)
== END 2020-07-18 13:32 | disposition expired | DRG 4 ==
LOC: SUPCPDRO 23:16 → EC 23:16 → 5NMEDONC 06-28 00:35 → 4SSUR 06-28 16:10 → 1SOBS 06-29 08:08 → 2SICU 06-29 12:41
PROVIDERS: ADMIT Internal Medicine Geriatric Medicine; ATTEND Internal Medicine Geriatric Medicine
PROC: 5A0945A Assistance with Respiratory Ventilation, 24-96 Consecutive Hours, High Flow/Velocity Cannula (ICD-10-PCS; 2020-06-28)
PROC: 0BH17EZ Insertion of Endotracheal Airway into Trachea, Via Natural or Artificial Opening (ICD-10-PCS; 2020-06-29)
PROC: 5A1955Z Respiratory Ventilation, Greater than 96 Consecutive Hours (ICD-10-PCS; 2020-06-29)
PROC: 0D9670Z Drainage of Stomach with Drainage Device, Via Natural or Artificial Opening (ICD-10-PCS; 2020-06-29)
PROC: 4A133J1 Monitoring of Arterial Pulse, Peripheral, Percutaneous Approach (ICD-10-PCS; 2020-06-29)
PROC: 02HV33Z Insertion of Infusion Device into Superior Vena Cava, Percutaneous Approach (ICD-10-PCS; 2020-06-29)
PROC: 4A133B1 Monitoring of Arterial Pressure, Peripheral, Percutaneous Approach (ICD-10-PCS; 2020-06-29)
PROC: 04HY32Z Insertion of Monitoring Device into Lower Artery, Percutaneous Approach (ICD-10-PCS; 2020-06-29)
PROC: XW043H5 Introduction of Tocilizumab into Central Vein, Percutaneous Approach, New Technology Group 5 (ICD-10-PCS; 2020-06-30)
PROC: 3E0G76Z Introduction of Nutritional Substance into Upper GI, Via Natural or Artificial Opening (ICD-10-PCS; 2020-06-30)
PROC: XW13325 Transfusion of Convalescent Plasma (Nonautologous) into Peripheral Vein, Percutaneous Approach, New Technology Group 5 (ICD-10-PCS; 2020-07-01)
PROC: 4A133J1 Monitoring of Arterial Pulse, Peripheral, Percutaneous Approach (ICD-10-PCS; 2020-07-08)
PROC: 4A133B1 Monitoring of Arterial Pressure, Peripheral, Percutaneous Approach (ICD-10-PCS; 2020-07-08)
PROC: 04HY32Z Insertion of Monitoring Device into Lower Artery, Percutaneous Approach (ICD-10-PCS; 2020-07-08)
PROC: 0DH63UZ Insertion of Feeding Device into Stomach, Percutaneous Approach (ICD-10-PCS; principal; 2020-07-10 07:30)
PROC: 0B110F4 Bypass Trachea to Cutaneous with Tracheostomy Device, Open Approach (ICD-10-PCS; principal; 2020-07-10 07:30)
PROC: 3E043XZ Introduction of Vasopressor into Central Vein, Percutaneous Approach (ICD-10-PCS; 2020-07-12)
PROC: 0W9930Z Drainage of Right Pleural Cavity with Drainage Device, Percutaneous Approach (ICD-10-PCS; 2020-07-16)
PROC: 4A133J1 Monitoring of Arterial Pulse, Peripheral, Percutaneous Approach (ICD-10-PCS; 2020-07-16)
PROC: 4A133B1 Monitoring of Arterial Pressure, Peripheral, Percutaneous Approach (ICD-10-PCS; 2020-07-16)
PROC: 03HY32Z Insertion of Monitoring Device into Upper Artery, Percutaneous Approach (ICD-10-PCS; 2020-07-16)
PROC: 0B21XFZ Change Tracheostomy Device in Trachea, External Approach (ICD-10-PCS; 2020-07-17)
DX: U07.1 COVID-19 (principal); J95.811 Postprocedural pneumothorax; J12.82 Pneumonia due to coronavirus disease 2019; A41.59 Other Gram-negative sepsis; K72.00 Acute and subacute hepatic failure without coma; D65 Disseminated intravascular coagulation [defibrination syndrome]; R65.21 Severe sepsis with septic shock; N17.0 Acute kidney failure with tubular necrosis; E43 Unspecified severe protein-calorie malnutrition; J15.0 Pneumonia due to Klebsiella pneumoniae; J80 Acute respiratory distress syndrome; D68.59 Other primary thrombophilia; M62.82 Rhabdomyolysis; J95.01 Hemorrhage from tracheostomy stoma; Z68.42 Body mass index [BMI] 45.0-49.9, adult; J95.859 Other complication of respirator [ventilator]; T81.49XA Infection following a procedure, other surgical site, initial encounter; D69.59 Other secondary thrombocytopenia; E11.22 Type 2 diabetes mellitus with diabetic chronic kidney disease; E11.40 Type 2 diabetes mellitus with diabetic neuropathy, unspecified; N18.30 Chronic kidney disease, stage 3 unspecified; E11.65 Type 2 diabetes mellitus with hyperglycemia; E66.01 Morbid (severe) obesity due to excess calories; Z51.5 Encounter for palliative care; Z66 Do not resuscitate; I12.9 Hypertensive chronic kidney disease with stage 1 through stage 4 chronic kidney disease, or unspecified chronic kidney disease; I48.0 Paroxysmal atrial fibrillation; E78.1 Pure hyperglyceridemia; E03.9 Hypothyroidism, unspecified; Y95 Nosocomial condition; T45.515A Adverse effect of anticoagulants, initial encounter; D72.819 Decreased white blood cell count, unspecified; E78.5 Hyperlipidemia, unspecified; R00.1 Bradycardia, unspecified; T38.0X5A Adverse effect of glucocorticoids and synthetic analogues, initial encounter; T41.295A Adverse effect of other general anesthetics, initial encounter; D72.820 Lymphocytosis (symptomatic); J45.20 Mild intermittent asthma, uncomplicated; I25.10 Atherosclerotic heart disease of native coronary artery without angina pectoris; M15.9 Polyosteoarthritis, unspecified; M10.9 Gout, unspecified; K76.9 Liver disease, unspecified; Z86.19 Personal history of other infectious and parasitic diseases; Z79.890 Hormone replacement therapy; Z79.82 Long term (current) use of aspirin; Z79.84 Long term (current) use of oral hypoglycemic drugs; Z79.899 Other long term (current) drug therapy; Z95.1 Presence of aortocoronary bypass graft; Z90.89 Acquired absence of other organs; Z87.39 Personal history of other diseases of the musculoskeletal system and connective tissue; Z86.69 Personal history of other diseases of the nervous system and sense organs; Z71.3 Dietary counseling and surveillance; Z87.820 Personal history of traumatic brain injury; Z98.890 Other specified postprocedural states; Z88.8 Allergy status to other drugs, medicaments and biological substances; Z83.79 Family history of other diseases of the digestive system; Z83.6 Family history of other diseases of the respiratory system; Z83.49 Family history of other endocrine, nutritional and metabolic diseases; Z82.49 Family history of ischemic heart disease and other diseases of the circulatory system
CPT/HCPCS: 36600; 43246; 71045; 74018; 80048; 80053; 82550; 82728; 82805; 83605; 83615; 83625; 83735; 83880; 84100; 84132; 84145; 84478; 85025; 85027; 85379; 85384; 85610; 85652; 85730; 86022; 86140; 86704; 86706; 86850; 86900; 86901; 87040; 87070; 87075; 87077; 87186; 87205; 87340; 93005; 94002; 94003; 94640; 94760; 99285